=== PATIENT | female | born 1980 | race Caucasian/White ===

== ENCOUNTER 2019-12-15 12:18 | Emergency (ER) | payer OTHER, SELFPAY ==
--- NOTE | ~2019-12-15 | XR_ITS ---
EXAMINATION: XR chest 2V DATE: 12/15/2019 13:35 INDICATION: Chest pain TECHNIQUE: PA and lateral views of the chest are obtained. COMPARISON: 12/11/2010 FINDINGS: The lungs are free of acute opacities. There is no pleural effusion or pneumothorax. The ca rdiomediastinal silhouette is normal. There is mild thoracic spondylosis. Surgical clips in the right upper quadrant are likely from prior cholecystectomy. IMPRESSION: 1. No acute cardiopulmonary abnormality. Reviewed, dictated and finalized at location B.
[2019-12-15 12:20] VITALS: BP 138/90; PULSE 87; RESP 17; TEMP 36.9; O2SAT 99
--- NOTE | 2019-12-15 12:25 | ECG_ITS ---
Measurements Intervals [place] Rate: 89 P: 53 LA: 158 QRS: 0 QRSD: 80 T: 31 QT: 347 QTc: 423 Interpretive Statements SINUS RHYTHM LOW QRS VOLTAGE IN PRECORDIAL LEADS EARLY PRECORDIAL R/S TRANSITION BORDERLINE T WAVE ABNORMALITY- ANTERIOR LEADS BASELINE ARTIFACT- II, III, V6 BORDERLINE ECG Electronically Signed On 12-15-2019 12:44:03 CDT by Zurdo Leroy D.O.
[2019-12-15 12:38] VITALS: PULSE 89
[2019-12-15 12:49] LABS: Basophils Absolute Auto 0.1 K/mm3 (0.0-0.1); Basophils Percent Auto 0.5 % (0.2-1.2); Eosinophils Absolute Auto 0.6 K/mm3 (0-0.3); Eosinophils Percent Auto 5.8 % (0-4.4); Hematocrit 42.1 % (37.0-47.0); Hemoglobin 13.8 g/dL (12.0-15.0); Immature Granulocyte Absolute 0.04 K/mm3 (0.00-0.031); Immature Granulocyte Percent A 0.4 % (0-0.5); Lymphocytes Absolute Auto 3.16 K/mm3 (0.9-3.2); Lymphocytes Percent Auto 32.4 % (18.3-44.2); Mean Corpuscular HGB Conc 32.8 g/dl (32-36); Mean Corpuscular Hemoglobin 27.9 pg (26-34); Mean Corpuscular Volume 85.2 fl (80-100); Mean Platelet Volume 10.7 fl (7.4-10.4); Monocytes Absolute Auto 0.8 K/mm3 (0.1-0.6); Monocytes Percent Auto 8.4 % (2.6-8.5); Neutrophils Absolute Auto 5.1 K/mm3 (1.3-6.7); Neutrophils Percent Auto 52.5 % (45.5-73.1); Platelet Count Result 289 k/mm3 (150-375); Red Blood Count 4.94 M/mm3 (4.2-5.4); Red Cell Distribution Width 12.5 % (11.5-14.5); White Blood Count 9.8 K/mm3 (4.5-10.0)
[2019-12-15] MEDS: ASPIRIN 81 MG CHEWABLE TABLET 324 MG PO (12:51)
[2019-12-15 13:04] LABS: Anion Gap 12.9 mmol/L (7-16); Blood Urea Nitrogen 13 mg/dL (7-17); Calcium 9.6 mg/dL (8.4-10.2); Carbon Dioxide 24 mmol/L (22-30); Chloride 101 mmol/L (98-107); Estimated CRCL calculation 114 ml/min; Estimated Glomerular Filt Rate > 60; Glucose 103 mg/dL (65-105); Partial Thromboplastin Time 25.4 SECONDS (22.3-36.8); Potassium 3.9 mmol/L (3.4-5.0); Sodium 134 mmol/L (137-145)
[2019-12-15 13:10] LABS: Prothrombin Time 12.5 Seconds (11.1-14.7)
[2019-12-15 13:16] LABS: Troponin I < 0.012 ng/mL (0.000-0.034)
--- NOTE | 2019-12-15 13:18 | ED.CHESTPAIN ---
HPI - Chest Pain General Chief Complaint: Chest Pain Stated Complaint: panic attacks Time Seen by Provider: 12/15/19 12:35 Source: RN notes reviewed History of Present Illness HPI narrative: Patient presents emergency department from work for chest pain. 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 She states that prior to coming into work today she was seen in the parking lot and had a feeling of an anxiety attack with chest pressure shortness of breath and episodes of crying. She states she is had 3 further episodes in the emergency department today patient states she is having no symptoms at this time. She denies any fevers or chills abdominal pain nausea vomiting or any other symptoms. Patient states she was on vacation last week and flew home on Thursday Related Data Home Medications Medication Instructions Recorded Confirmed nortriptyline HS 05/07/19 cetirizine [Zyrtec] 10 mg PO DAILY 12/15/19 Allergies Allergy/AdvReac Type Severity Reaction Status Date / Time No Known Allergies Allergy Verified 12/15/19 12:23 Review of Systems Review of Systems: Narrative: Gen.: Denies fevers or chills ENT: Denies congestion Respiratory: Denies shortness of breath or cough CV: See HPI GI: Denies abdominal pain nausea, emesis or diarrhea Musculoskeletal: Denies back pain or muscle pain Neuro: Denies numbness, tingling, weakness or focal weakness Skin: Denies rash Except as documented, all other systems reviewed and negative PMF Past Medical History Medical History (Updated 12/15/19 @ 17:30 by Rashaad Love DO) Patient denies significant medical history Social History Social History (Updated 12/15/19 @ 13:20 by Rashaad Love DO) Smoking status: Never smoker Gender identity (if verbalized by the patient): Female Exam Narrative: Exam Narrative: APPEARANCE: No acute distress, nontoxic, resting in bed EYES: EOMI HEENT: Normocephalic, atraumatic, OMM RESPIRATORY: No respiratory distress Clear to auscultation bilaterally with no rhonchi wheezing or rales. CARDIOVASCULAR: Regular rate and rhythm without murmurs rubs or gallops. ABDOMINAL: Soft, nontender, nondistended, no rebound or guarding MUSCULOSKELETAl: Moves all extremities. No clubbing, cyanosis or edema. NEURO: Awake and alert. Following commands, speech normal, no focal deficits SKIN:: Warm, dry. No rashes lesions or abrasions PSYCHIATRIC: Normal affect/mood, Course Course Emergency Course: Patient had remained asymptomatic in the ED and is is going to tell the patient she was being discharged home the patient was again noted to be in another episode of a panic attack. Patient was tearful in the room hyperventilating patient's heart rate was noted to be elevated at 1 50-1 60 but was sinus tachycardia. At that time the patient was given Ativan with resolution of her symptoms Patient has been symptom-free since receiving Ativan. Upon discussion the patient did have a stressful episode on her vacation getting into an argument with a friend Discussed with patient results of workup and diagnosis. Discussed need for follow-up with primary care, proper use of medication, and reasons to return to the emergency department. Patient understands and agrees to current treatment plan Vital Signs Vital signs: Vital Signs Temperature 98.4 F 12/15/19 12:20 Pulse Rate 87 12/15/19 12:20 Respiratory Rate 17 12/15/19 12:20 Blood Pressure 138/90 12/15/19 12:20 Pulse Oximetry 99 12/15/19 12:20 Temperature 98.4 F 12/15/19 12:20 Pulse Rate 95 12/15/19 16:37 Respiratory Rate 20 12/15/19 16:37 Blood Pressure 129/79 12/15/19 16:37 Pulse Oximetry 97 12/15/19 16:37 MDM - Chest Pain MDM Narrative Medical decision making narrative: Patient's EKGs and labs are without significant high risk changes. Cardiac risk factors reviewed. Patient is felt likely low risk for ACS and reasonable for further risk stratification testing as an
--- NOTE | 2019-12-15 13:22 | PC.NURSE ---
PT DOES NOT WISH FOR IV AT THIS TIME. WILL ALLOW AT LATER TIME IF MD ORDERS IV MEDS OR TX REQUIRING IV
[2019-12-15 14:02] LABS: D Dimer 0.45 ug/mL (<0.48)
[2019-12-15 14:34] VITALS: BP 112/77; PULSE 69; RESP 14; O2SAT 97
[2019-12-15 16:06] LABS: Troponin I < 0.012 ng/mL (0.000-0.034)
--- NOTE | 2019-12-15 16:36 | PC.NURSE ---
pt began crying with tachypnea of-[id number] . pt began having sternal chest pain moments after crying began. medicated per md orders. emotional support provided.
[2019-12-15 16:37] VITALS: BP 129/79; PULSE 95; RESP 20; O2SAT 97
[2019-12-15 17:46] VITALS: BP 105/73; PULSE 90; RESP 20; O2SAT 98
== END 2019-12-15 17:57 | disposition home or self-care (01) ==
PROVIDERS: Emergency Provider Emergency Medicine; PCP Family Medicine Sports Medicine
DX: F41.9 Anxiety disorder, unspecified (principal); R07.89 Other chest pain; R94.31 Abnormal electrocardiogram [ECG] [EKG]
CPT/HCPCS: 36415; 71046; 80048; 84484; 85025; 85380; 85610; 85730; 93005; 96374; 99284; A9270; J2060

== ENCOUNTER 2022-06-08 15:00 | Emergency (ER) | payer BC, MEDICAID, SELFPAY ==
--- NOTE | ~2022-06-08 | CT_ITS ---
EXAMINATION: CT abdomen pelvis w con DATE: 06/08/2022 19:34 INDICATION: left flank pain, recent cystitis TECHNIQUE: Computed tomography (CT) of the abdomen and pelvis was performed with 100 mL Omnipaque-350 intravenous contrast. Automated exposure control and iterative reconstruction technique were employe d. The dose-length product was 1120.93 mGy-cm. COMPARISON: None. FINDINGS: Lower thorax: Small hiatal hernia Liver: Focal fat deposition along the falciform ligament. Biliary/Gallbladder: Gallbladder is absent. Minimal intrahepatic and mild extrahepatic bile duct dila tion likely secondary to cholecystectomy. Pancreas: No mass or duct dilation. Spleen: Normal. Adrenals:No mass. Kidneys: Right renal ectopy. No mass, stone, or hydronephrosis. GI tract: Distal esophageal and antral wall edema. Prior gastric surgery. No small or large bowel dil ation. Normal appendix. Mesentery/Peritoneum: No ascites, mass, or free air. Retroperitoneum: No mass. Pelvis: Normal urinary bladder. Normal uterus. IUD, in good position. Trace deep pelvic fluid, within physiologic range. Right corpus luteal cyst, requiring no additional evaluation. Normal left ovary.. Soft Tissues: Small, uncomplicated fat-containing umbilical hernia. Bones: No acute osseous finding. IMPRESSION: Esophagitis/gastritis. No other acute abdominopelvic process detected. Reviewed, dictated and finalized at location K. N RESOURCES EXECUTIVE
[2022-06-08 15:13] VITALS: BP 136/100; PULSE 99; RESP 18; TEMP 36.3; O2SAT 100
[2022-06-08 16:03] LABS: Appearance Urine Clear (Clear); Bilirubin Urine 2+ (Negative); Blood Urine Trace-intact (Negative); Color Urine Yellow (Yellow); Glucose Urine UA Negative (Negative); Ketones Urine 3+ mg/dL (Negative); Leukocyte Esterase Ur Trace LEU/UL (Negative); Nitrate Urine Negative (Negative); Protein Urine 1+ mg/dL (Negative); Specific Grav Ur 1.025 (1.001-1.035)
[2022-06-08 16:11] LABS: Bacteria Urine Trace /hpf; Mucus Urine Rare /lpf; Squamous Epithelial Cell Urine Moderate /hpf (Few)
[2022-06-08 16:19] LABS: Add Urine Microscopic? YES
[2022-06-08] MEDS: SODIUM CHLORIDE 0.9% IV 1,000 ML 999 ML IV CONT (18:06)
[2022-06-08 18:09] LABS: Basophils Absolute Auto 0.1 K/mm3 (0.0-0.1); Basophils Percent Auto 0.7 % (0.2-1.2); Eosinophils Absolute Auto 0.5 K/mm3 (0-0.3); Eosinophils Percent Auto 7.1 % (0-4.4); Hematocrit 43.2 % (37.0-47.0); Hemoglobin 14.1 g/dL (12.0-15.0); Immature Granulocyte Absolute 0.01 K/mm3 (0.00-0.031); Immature Granulocyte Percent A 0.1 % (0-0.5); Lymphocytes Absolute Auto 2.39 K/mm3 (0.9-3.2); Lymphocytes Percent Auto 33.3 % (18.3-44.2); Mean Corpuscular HGB Conc 32.6 g/dl (32-36); Mean Corpuscular Hemoglobin 28.7 pg (26-34); Mean Platelet Volume 12.5 fl (7.4-10.4); Monocytes Absolute Auto 0.6 K/mm3 (0.1-0.6); Monocytes Percent Auto 7.9 % (2.6-8.5); Neutrophils Absolute Auto 3.6 K/mm3 (1.3-6.7); Neutrophils Percent Auto 50.9 % (45.5-73.1); Platelet Count Result 201 k/mm3 (150-375); Red Blood Count 4.91 M/mm3 (4.2-5.4); Red Cell Distribution Width 13.3 % (11.5-14.5); White Blood Count 7.2 K/mm3 (4.5-10.0)
[2022-06-08 18:24] LABS: Alanine Aminotransferase 247 U/L (6-35); Albumin Level 3.8 g/dL (3.5-5.1); Alkaline Phosphatase 71 U/L (38-126); Anion Gap 6 mmol/L (8-16); Aspartate Amino Transferase 95 U/L (14-36); Bilirubin,Total 0.7 mg/dL (0.2-1.3); Blood Urea Nitrogen 13 mg/dL (7-17); Carbon Dioxide 26 mmol/L (22-30); Chloride 107 mmol/L (98-107); Estimated CRCL calculation 106 ml/min; Estimated Glomerular Filt Rate > 60; Glucose 94 mg/dL (65-110); Potassium 4.5 mmol/L (3.4-5.0); Sodium 139 mmol/L (137-145)
--- NOTE | 2022-06-08 18:30 | WPDEDEXPGENP ---
HPI - General Ped General Chief complaint: Urogenital-Female Stated complaint: worsening UTI symptoms Time Seen by Provider: 06/08/22 17:05 History of Present Illness HPI narrative: 42-year-old female history of migraine headaches, anxiety and gastric sleeve presents to the emergency room for evaluation of a left mid thoracic back pain that has been present for 6 days. Patient states that she contacted her GI specialist last week and was told this is possibly a gas bubble. Reports over the next couple of days her symptoms did not improve. Was seen in her primary care provider's office on and had a UA obtained and found that she had a UTI. On Thursday she was told by her primary to go directly to the emergency room for IV antibiotics. Patient states her symptoms have not improved after being on Cipro for 2 days. Denies any dysuria, urinary frequency or urgency. Back pain is not alleviated or aggravated by any factors. Patient states she has a bowel movement about every other day which is irregular for her. Related Data Home Medications Medication Instructions Recorded Confirmed nortriptyline 25 mg capsule HS 05/07/19 10/03/20 cetirizine 10 mg tablet (Zyrtec) 10 mg PO DAILY 12/15/19 10/03/20 cholecalciferol (vitamin D3) 250 250 mcg PO WEEKLY 09/19/20 10/03/20 mcg (10,000 unit) capsule escitalopram oxalate 10 mg tablet 10 mg PO DAILY 09/19/20 10/03/20 (Lexapro) topiramate 25 mg tablet (Topamax) 25 mg PO DAILY 09/19/20 10/03/20 Allergies Allergy/AdvReac Type Severity Reaction Status Date / Time No Known Allergies Allergy Verified 10/02/20 14:36 Pediatric Review of Systems Review of Systems: CONSTITUTIONAL: Denies fever, chills, or sweats. EYES: Denies visual changes, redness, or discharge. ENT: Denies rhinorrhea, congestion, sore throat, or otalgia. CARDIOVASCULAR: Denies chest pain, palpitations, or edema. RESPIRATORY: Denies cough or dyspnea. GASTROINTESTINAL: Denies abdominal pain, nausea, vomiting, or diarrhea. GENITOURINARY: Denies dysuria or hematuria. SKIN: Denies rash or itching. MUSCULOSKELETAL: Denies back pain, joint pain, or myalgia. NEUROLOGIC: Denies headache, numbness, dizziness, or weakness. PSYCHIATRIC: Denies anxiety or depression. [facility] Past Medical History Medical History Anxiety Arthritis Environmental allergies Gallbladder disorder Headache Migraine Patient denies significant medical history Surgical History Surgical History History of section History of cholecystectomy History of incision and drainage History of knee surgery [place] teeth removed Family History Family History Father Diabetes mellitus Mother Depression Anxiety Other Depression Anxiety Grandparent Ovarian cancer Lung cancer Heart disease Social History Social History Smoking status: Never smoker Alcohol intake: current Substance use: never Living arrangements: with family Occupation/Education: occupation 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 HEAD: Normocephalic, atraumatic. EYES: Conjunctivae normal, PERRLA and EOMI. CHEST: Clear to auscultation. No respiratory distress. No wheezes rales or rhonchi. HEART: Regular rate and rhythm. No murmur heard. Normal peripheral pulses. ABDOMEN: Soft, nontender, nondistended, normal active bowel sounds. BACK: No CVA tenderness; left mid thoracic tenderness, step-offs, bony abnormality; FROM EXTREMITIES: Normal range of motion. No edema. No clubbing or cyanosis SKIN: Warm, dry, no rash. No noted wou
[2022-06-08 19:24] VITALS: BP 126/79; PULSE 65; RESP 16; TEMP 36.2; O2SAT 100
== END 2022-06-08 20:50 | disposition home or self-care (01) ==
PROVIDERS: Emergency Medicine; Emergency Provider Nurse Practitioner Family
DX: K29.70 Gastritis, unspecified, without bleeding (principal); M19.90 Unspecified osteoarthritis, unspecified site; F41.9 Anxiety disorder, unspecified; Z98.84 Bariatric surgery status
CPT/HCPCS: 36415; 74177; 80053; 81001; 81025; 85025; 96360; 96361; 99284; J7030; Q9967

== ENCOUNTER 2024-05-23 09:50 | Emergency (ER) | payer OTHER, MEDICAID, SELFPAY ==
--- NOTE | ~2024-05-23 | US_ITS ---
RIGHT LOWER EXTREMITY VENOUS ULTRASOUND Ordering provider: Gloria Stevens MD History: . ankle swelling, no injury/trauma . Comparison: None. FINDINGS: --COMMON FEMORAL: Patent and free of thrombus. Normal compressibility, phasic flow and augmentation. --PROXIMAL SUPERFICIAL FEMORAL: Patent and free of thrombus. Normal compressibility, phasic flow and augmentation. --DISTAL SUPERFICIAL FEMORAL: Patent and free of thrombus. Normal compressibility, phasic flow and au gmentation. --POPLITEAL: Patent and free of thrombus. Normal compressibility, phasic flow and augmentation. --POSTERIOR TIBIAL: Patent and free of thrombus. Normal compressibility, phasic flow and augmentation . IMPRESSION: Negative right lower extremity venous US. No deep vein thrombosis. Reviewed, dictated and finalized at location A. EMIOLOGY INTERN
--- NOTE | ~2024-05-23 | XR_ITS ---
EXAMINATION: XR ankle RT min 3V DATE: 05/23/2024 11:53 INDICATION: Right ankle injury and pain. TECHNIQUE: 4 views of right ankle were obtained. COMPARISON: None. FINDINGS: Alignment is normal. No fracture. There is mild osteoarthritis of talonavicular joint. Ther e are enthesophytes at the posterior and plantar aspects of calcaneal tuberosity. There is ankle soft tissue swelling. IMPRESSION: 1. No fracture. Reviewed, dictated and finalized at location A. SHIP IMPRESSION: 1. No fracture.
[2024-05-23 09:55] VITALS: BP 103/60; PULSE 78; RESP 15; TEMP 36.4; O2SAT 98
--- NOTE | 2024-05-23 12:15 | ED.LOWEXIN ---
HPI - Extremity Injury (Lower) General Chief Complaint: Extremity Injury, Lower Stated Complaint: r ankle pain Time Seen by Provider: 05/23/24 12:02 History of Present Illness HPI Narrative: 44-year-old female with no pertinent past medical history presenting to the emergency department for right ankle pain and swelling. Patient states that she woke up today with feeling of swelling in her right ankle and some difficulty tolerating weight-bearing. She states she has been trying to roll it and felt like he needed to be ?popped? and she has now had some bruising from her aggressive rubbing. She denies any other trauma or direct injuries. No history of DVT and has no risk factors. Patient is otherwise in her normal state of health. Has not tried anything aside from Tylenol for pain control. Related Data Home Medications ?Medication ?Instructions ?Recorded ?Confirmed ?Last Taken ?Type nortriptyline 25 mg capsule HS 05/07/19 10/03/20 Unknown History cetirizine 10 mg tablet (Zyrtec) 10 mg PO DAILY 12/15/19 10/03/20 Unknown History cholecalciferol (vitamin D3) 250 250 mcg PO WEEKLY 09/19/20 10/03/20 Unknown History mcg (10,000 unit) capsule escitalopram oxalate 10 mg tablet 10 mg PO DAILY 09/19/20 10/03/20 Unknown History (Lexapro) topiramate 25 mg tablet (Topamax) 25 mg PO DAILY 09/19/20 10/03/20 Unknown History Allergies Allergy/AdvReac Type Severity Reaction Status Date / Time No Known Allergies Allergy Verified 10/02/20 14:36 Review of Systems Review of Systems: As reviewed above in HPI [facility] Past Medical History Medical History Migraine Headache Gallbladder disorder Arthritis Anxiety Environmental allergies Patient denies significant medical history Surgical History Surgical History [place] teeth removed History of knee surgery History of incision and drainage History of cholecystectomy History of section Family History Family History Father Diabetes mellitus Mother Depression Anxiety Other Depression Anxiety Grandparent Ovarian cancer Lung cancer Heart disease Social History Social History Smoking status: Never smoker Alcohol intake: current Substance use: never Living arrangements: with family Occupation/Education: occupation 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 Mucous membranes moist. NECK: Supple. CHEST: [Clear to auscultation. No respiratory distress.] HEART: [Regular rate and rhythm]. No murmur heard. [Normal peripheral pulses.] ABDOMEN: [Soft, nondistended], [nontender], [No rigidity or guarding] EXTREMITIES: Right ankle swelling and tenderness but full range of motion, able to bear weight. No significant edema. SKIN: Warm, dry, no rash. NEURO: [No focal deficits]. Alert and oriented [x3.] PSYCH: [Normal mood and affect.] Course Vital Signs Vital signs: Vital Signs Temperature 36.4 C 05/23/24 09:55 Pulse Rate 78 05/23/24 09:55 Respiratory Rate 15 05/23/24 09:55 Blood Pressure 103/60 05/23/24 09:55 Pulse Oximetry 98 05/23/24 09:55 Oxygen Delivery Room Air 05/23/24 09:55 Temperature 36.4 C 05/23/24 09:55 Pulse Rate 78 05/23/24 09:55 Respiratory Rate 15 05/23/24 09:55 Blood Pressure 103/60 05/23/24 09:55 Pulse Oximetry 98 05/23/24 09:55 Oxygen Delivery Room Air 05/23/24 09:55 MDM - Extremity Injury (Lower) MDM Narrative Medical decision making narrative: 44-year-old female presenting with right ankle pain. No significant traumatic injuries or illnesses. She does have some swelling over her right ankle as well as pain but no appreciable step-offs deformities. Full range of motion of the joint. Otherwise well-appearing on any acute distress. Ultrasound of the right lower extremities ordered to rule out DVT is there is no associated trauma, x-rays were obtained for any bony anomalies. Patient was provided Toradol for analgesia. Ultrasound shows no deep venous thrombosis, x-rays were independently reviewed and showed no acute osseous process such as fractures or dislocations. There is soft tissue swelling. Patient has an ankle sprain and was given an Chauncey wrap and crutches for ambulation assistance. She will be sent home with return precautions, instructions with [id number] medications for pain control and follow up on outpatient basis. Patient verbalized understanding of safe for discharge at this. Differential Diagnosis Differential diagnosis: Likely ankle sprain and strain, ankle fracture and other Medical Records Attestation: I reviewed the patient's medical records. Lab Data Attestation: I reviewed the patient's lab results. Imaging Data Attestation: I personally reviewed and interpreted this imaging study as follows: My impression: Impressions Ankle X-Ray 05/23/24 12:02 IMPRESSION: 1. No fracture. Venous Doppler Study 05/23/24 13:02 IMPRESSION: Negative right lower extremity venous US. No deep vein thrombosis. Discharge Plan Discharge Clinical Impression: Ankle sprain, Ankle swelling Patient Disposition: Home, Self-Care Condition: Stable Instructions: Antibiotic Form Additional Instructions: No DVT or fractures, E do have some swelling and a likely ankle sprain although unclear what caused it. Tylenol, Motrin, ice and Chauncey wrap for comfort. Follow-up with your regular doctor. Return with any new or worsening concerns at any time. Patient Language: Citizen Of [place] Prescriptions: No Action nortriptyline 25 mg capsule HS topiramate [Topamax] 25 mg tablet 25 mg PO DAILY cholecalciferol (vitamin D3) 250 mcg (10,000 unit) capsule 250 mcg PO WEEKLY escitalopram oxalate [Lexapro] 10 mg tablet 10 mg PO DAILY cetirizine [Zyrtec] 10 mg Tablet 10 mg PO DAILY alprazolam [Xanax] 0.25 mg tablet 0.25 mg PO TID PRN (Reason: anxiety) Qty: 4 0RF Follow-up/Referrals: PHYSICIAN NOT ON STAFF,NONSTAFF [Non-Staff] - Time of Disposition: 13:43
[2024-05-23] MEDS: KETOROLAC 10 MG TABLET PO (14:13)
--- OUTSIDE RECORDS SUMMARY | 2024-05-29 17:26 | XMS_ITS | Referral Summary ---
Author Organization [facility] Address [address] [place] [address] Care Team Providers Care Sales Enablement Lead Name Role Phone Miguel Ángel Olea MD Primary Care Provider [phone] Source Comments [facility],non-owned Affiliates and Associated Physician Practices is amultiple site organization consisting of ambulatory clinics and hospital sitesin [place], [place], [place] and [place]. This disclosure is being madepursuant to the Care Everywhere program and may not contain all information available regarding this patient. Last updated 18.[facility] Encounters Date Type Department Care Team Description 05/05/2024 Telephone [facility] [address] [place] [address] Robert Sage, [facility] Kidney/Liver Donor Evaluation from Last 3 Months Medications * Be aware that medications may not be up to date on this document. Alwaysverify current medications with the patient. Medication Sig Dispensed Refills Start Date End Date Status ergocalciferol (DRISDOL) 76359 UNITS capsule Take 50,000 Units by mouth every 7 days Active topiramate (TOPAMAX) 100 MG tablet Take 100 mg by mouth 2 times daily Active topiramate (TOPAMAX) 50 MG tablet Take 50 mg by mouth 2 times daily Active atorvastatin (LIPITOR) 40 MG tablet Take 40 mg by mouth at bedtime Active cetirizine (ZYRTEC ALLERGY) 10 MG tablet Take 10 mg by mouth once daily Active nortriptyline (PAMELOR) 25 MG capsuleIndications:Mi graine without aura and without status migrainosus, not intractable Take 1 capsule by mouth at bedtime 30 capsule 5 04/28/2018 Active Active Problems Problem Noted Date Diagnosed Date Supervision of other high-risk 014 Overview (03/25/2015): Consult from Arianne Hussein NP O+/I/-/-, HIV NR Maternal serum screen positive for trisomy 21 Overview (02/28/2014): 1:111 risk for DS S/p genetic counseling Declined further testing Resolved Problems Problem Noted Date Diagnosed Date Resolved Date Pre-transplant evaluation fo r kidney transplant 03/07/2024 03/07/2024 Overview (03/07/2024): Lela Lei 1980 Referring Seismic Prospecting Observer Helper: Listing Date: Dialysis Info: Type: Time: NOD Blood Type: Body mass index is 43.08 kg/m??. 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: Past Medical History: Diagnosis Date Allergic rhinitis Blood in stool GERD (gastroesophageal reflux disease) Headache Hemorrhoid Hypercholesterolemia Left knee pain Vitamin D deficiency Past Surgical History: Procedure Laterality Date Cholecystectomy Social History Socioeconomic History Marital status: Single Spouse name: Not on file Number of children: Not on file Years of education: Not on file Highest education level: Not on file Occupational History Not on file Tobacco Use Smoking status: Former Current packs/day: 0.00 Types: Cigarettes Quit date: 08/27/2017 Years since quittin.5 Smokeless tobacco: Never Substance and Sexual Activity Alcohol use: Not on file Drug use: Not on file Sexual activity: Not on file Other Topics Concern Not on file Social History Narrative Not on file Social Determinants of Health Financial Resource Strain: Not on file Food Insecurity: Not on file Transportation Needs: Not on file Stress: Not on file Housing Stability: Not on file Transplant Surgery Clinic Appt w/: Date: A/P: Nephrology Clinic Appt w/: Date: A/P: Other Consults: Pertinent Previous Committee Presentations: Labs: PTH: A1c: Glucose: GFR: PSA: Serologies: CMV Igg: EBV Igg: Varicella: MMR: Toxo: Strongyloides: Albumin: Tox Screen: PRA: Class 1 Class 2 Kidney Biopsy: Renasight: EKG: Echo: DSE: Treadmill Stress: LHC: CXR: CT abd/pelvis non-contrast: Renal US: LE arterial doppler: LE venous doppler: Carotid US: VCUG: PPD/Quant Gold: Colonoscopy: Mammo: Pap: Panorex/Dental: SW: FIN[employer] REPRESENTATIVE forms: RD: Items Still Pending: Social History Tobacco Use Types Packs/Day Years Used Date Smoking Tobacco: Former Cigarettes Q uit: 08/27/2017 Smokeless Tobacco: Never Sex and Gender Information Value Date Recorded Sex Assigned at Not on file Gender Identity Not on file Sexual Orientation Not on file Last Filed Vital Signs Vital Sign Reading Time Taken Comments Blood Pressure 127/88 04/28/2018 1:09 PM NET SORTER Pulse 101 04/28/2018 1:09 PM NET SORTER Temperature 36.3 ??C (97.3 ??F) 04/28/2018 1:09 PM CS T Respiratory Rate - - Oxygen Saturation - - Inhaled Oxygen Concentration - - Weight 113.9 kg (251 lb) 04/28/2018 1:09 PM NET SORTER Height 162.6 cm (5' 4 ) 04/28/2018 1:09 PM NET SORTER Body Mass Index 43.08 04/28/2018 1:09 PM NET SORTER Plan of Treatment Not on file Advance Directives * Full Code (Latest Code Status on File) Date Activated Date Inactivated Comments 02/02/2024 12:40 PM Care Teams Sales Enablement Lead Relationship Specialty Start Date End Date Miguel Ángel Olea MD PCP - General 01/26/18
--- OUTSIDE RECORDS SUMMARY | 2024-05-29 17:26 | XMS_ITS | Encounter Summary ---
Author Organization [facility] Address [address] [place] [address] Care Team Providers Care Sap Technical Developer Name Role Phone Dot Shultz DO Primary Care Provider [phone] Encounter Details Date Type Department Care Team (Latest Contact Info) Description 03/20/2014 9:00 AM IRONING MACHINE OPERATOR - 03/20/2014 11:59 PM IRONING MACHINE OPERATOR Hospital Encounter [facility] MATERNAL/ EVALUATION UNIT [address] [facility] [place] [id number] Bacilio Anders MD [address] [place] [address] Discharge Disposition: Home or Self Care Social History Tobacco Use Types Packs/Day Years Used Date Smoking Tobacco: Never Assessed Comments Yes Sex and Gender Information Value Date Recorded Sex Assigned at Not on file Gender Identity Not on file Sexual Orientation Not on file documented as of this encounter Plan of Treatment Not on file documented as of this encounter Procedures Procedure Name Priority Date/Time Associated Diagnosis Comments IMAGING/RADIOLOGY/X RAY RESULTS ORDER 07/29/2014 5:51 AM CDT SONOGRAM - COMPLETE Routine 03/20/2014 9 :37 AM IRONING MACHINE OPERATOR documented in this encounter Results * IMAGING/RADIOLOGY/XRAY RESULTS ORDER (07/29/2014 5:51 AM CDT) Anatomical Region Laterality Modality Other Narrative 07/29/2014 5:51 AM CDT Ordered by an unspecified provider. Scanned Document IMAGING * SONOGRAM - COMPLETE (03/20/2014 9:37 AM IRONING MACHINE OPERATOR) Anatomical Region Laterality Modality Other 03/20/2014 9:37 AM IRONING MACHINE OPERATOR Narrative 03/20/2014 10:03 AM IRONING MACHINE OPERATOR ? [facility] ? [facility] & Care Center ?PHONE: ??FAX: Pat. Name: ?LELA LEI. No: ?[id number] Study Date: ?? 03/20/2014 ??9:37am , Age: ? 1980, 33 LMP: ?10/01/2013 GA by LMP: ?24w2d GA by 1st: ?24w3d GA by US: ? 23w5d GA Selected: ??24w3d (From First U) JACEY: ?07/07/2014 Referring MD: ZIA BALES MD Hair Blender: ??Bonnie Gao RDMS Hist/Ind: ? Risk of trisomy 21 of 1:111 MEASUREMENTS & AGE ? GROWTH EVALUATION Measurement ??GA ? Range ? Srce %for GA Ratios ----- ---- ------- BPD ??5.7 cm 23w2d (25n3h-91v3l) Hadl BPD 20% FL/BPD 0.77 (0.71 - 0.87) HC ??21.4 cm 23w3d (65r0g-28u2v) Hadl HC ??19% FL/AC ??0.21 (0.20 - 0.24) AC ??20.8 cm 25w3d (58a5v-93e8c) Hadl AC ??68% HC/AC ??1.03 (1.02 - 1.21) FL ?? 4.4 cm 24w3d (12f4y-89f4m) Hadl FL ??49% CI ? 0.72 (0.70 - 0.86) HL ?? 4.3 cm 25w6d (98c8v-90w6n) Juan Manuel HL ??73% GA for sonogram 23w5d (89s6q-27s0c) ?? Weight Estimate: based on (BPD,HC,AC,FL) Hadlock ?Weight: 727 gm (621-833) Hadlock ? : 1lbs, 9oz ? Normal: 724 gm (543-904) Hadlock ? Wt% ? 51% for 24w3d Heart Rate: 135 bpm Amniotic Fluid Index: 15.5cm (09.8-22.0) Q1: 5.6cm ??Q2: 2.7cm ??Q3: 3.0cm ??Q4: 4.2cm ?? CLINICAL SUMMARY Study Number: ??2 A marshall fetus is identified in breech presentation. ??The measurements today are consistent with appropriate growth compared to previous examination. ??The JACEY selected is based on prior ultrasound examination (confirmed). ??The amniotic fluid volume is within normal limits. ??The placenta is anterior. ??No major malformations are seen. ??The patient was advised that ultrasound does not allow detection of all structural or chromosomal abnormalities. ?? IMPRESSION: ?? Single, live, IUP 23w3d Anatomy completed RECOMMEND: ?? Follow up ultrasound as clinically indicated. Thank you for allowing us the opportunity to care for your patient. Glenn Ames MD <Electronic Signature> ??03/20/2014 10:04am Bacilio Anders MD [facility] ORDERABLES documented in this encounter Visit Diagnoses Not on filedocumented in this encounter Care Teams Sap Technical Developer Relationship Specialty Start Date End Date Dot Shultz DO [address] [place] [address] PCP - General Family Medicine 02/20/14 01/25/18 documented as of this encounter
--- OUTSIDE RECORDS SUMMARY | 2024-05-29 17:26 | XMS_ITS | Encounter Summary ---
Author Organization [facility] Address [address] [place] [address]. [place], [place] [address] [place] [address] Care Team Providers Care Property Site Manager Name Role Phone Miguel Ángel Olea MD Primary Care Provider [phone] Reason for Visit * Reason Comments Follow Up Seen in ER for panic attacks. Encounter Details Date Type Department Care Team (Late st Contact Info) Description 12/19/2019 3:40 PM CDT Office Visit [facility] - [place] [address] [place] [address] Miguel Ángel Olea MD [address] [address] Follow Up (Seen in ER for panic attacks.) Social History Tobacco Use Types Packs/Day Years Used Date Smoking Tobacco: Former Cigarettes 0.5 15 Smokeless Tobacco: Never Alcohol Use Standard Drinks/Week Comments Yes 0 (1 standard drink = 0.6 oz pur e alcohol) 1 drink per year Comments Unknown Sex and Gender Information Value Date Recorded Sex Assigned at Not on file Legal Sex Female 5:36 PM CDT Gender Identity Not on file Sexual Orientation Not on file COVID-19 Exposure Response Date Recorded In the last month, have you been in contact with someone who was confirmed or suspected to have Coronavirus / COVID-19? No / Unsure 12/19/2019 3:27 PM CDT documented as of this encounter Last Filed Vital Signs Vital Sign Reading Time Taken Comments Blood Pressure 130/84 12/19/2019 3:38 PM CDT Pulse 85 12/19/2019 3:38 PM CDT Temperature 36.6 ??C (97.9 ??F) 12/19/2019 3:38 PM CD T Respiratory Rate 18 12/19/2019 3:38 PM CDT Oxygen Saturation 97% 12/19/2019 3:38 PM CDT Inhaled Oxygen Concentration - - Weight 117.5 kg (259 lb) 12/19/2019 3:38 PM CDT Height 162.6 cm (5' 4 ) 12/19/2019 3:38 PM CDT Body Mass Index 44.46 12/19/2019 3:38 PM CDT documented in this encounter Progress Notes * Miguel Ángel Olea MD - 12/19/2019 3:40 PM CDT Images from the original note were not included. [facility] [place] Encounter Date: 12/19/2019 Chief Complaint:: Follow Up (Seen in ER for panic attacks.) History of Present Illness: Renata Lei is a 39-year-old female, who presents for an evaluation of shortness of breath.Onset approximately 6 months ago. Symptoms are triggered by social situations.There are no suicidalideations or plan today. No history concerning for manic symptoms. Discussed biochemical cause of anxiety and depression as well as treatment to include pharmacotherapy and behavioral therapy. Discussed with patient that best treatment is combined therapy with SSRI and counseling. Previous treatment modalities include: none. Will continue pharmacological treatment today. Discussed typical side effects of medication, to include sleep problems, HERNANDEZ, GI symptoms, and black box warning of increase in suicidal ideation. Depression risk factors: none ROS: Review of Systems Constitutional: Negative. Eyes: Negative. Respiratory: Negative. Cardiovascular: Negative. Gastrointestinal: Negative. Genitourinary: Negative. Musculoskeletal: Negative. Skin: Negative. Neurological: Negative. Endo/Heme/Allergies: Negative. Psychiatric/Behavioral: The patient is nervous/anxious. Active Problems: Patient Active Problem List Diagnosis ??? Allergic rhinitis ??? Bright red blood per rectum ??? Encounter for preventive health examination ??? Headache ??? Hemorrhoids ??? Hypercholesterolemia ??? Knee pain, left ??? Low vitamin D level ??? Overweight ??? Sinusitis Medical History: Past Medical History: Diagnosis Date ??? Migraine 03/2017 ??? S/P debridement I & D left upper thigh with debridement Surgical History: Past Surgical History: Procedure Laterality Date ??? ABDOMINAL SURGERY 2006 lap choly ??? JOINT REPLACEMENT Left 1998 left knee replacement Family History: Family History Problem Relation Name Age of Onset ??? Fibromyalgia Mother ??? Diabetes Father ??? Hyperlipidemia Father ??? None Sister Social History: Social History Socioeconomic History ??? Marital status: Single Spouse name: Not on file ??? Number of children: Not on file ??? Years of education: Not on file ??? Highest education level: Not on file Occupational History ??? Not on file Social Needs ??? Financial resource strain: Not on file ??? Food insecurity: Worry: Not on file Inability: Not on file ??? Transportation needs: Medical: Not on file Non-medical: Not on file Tobacco Use ??? Smoking status: Former Smoker Packs/day: 0.50 Years: 15.00 Pack years: 7.50 Types: Cigarettes ??? Smokeless tobacco: Never Used Substance and Sexual Activity ??? Alcohol use: Yes Comment: 1 drink per year ??? Drug use: No ??? Sexual activity: Not on file Lifestyle ??? Physical activity: Days per week: Not on file Minutes per session: Not on file ??? Stress: Not on file Relationships ??? Social connections: Talks on phone: Not on file Gets together: Not on file Attends evangelical service: Not on file Active member of club or organization: Not on file Attends meetings of clubs or organizations: Not on file Relationship status: Not on file ??? Intimate partner violence: Fear of current or ex partner: Not on file Emotionally abused: Not on file Physically abused: Not on file Forced sexual activity: Not on file Other Topics Concern ??? Not on file Social History Narrative ??? Not on file Medications: Current Outpatient Medications: ??? ALPRAZolam 0.25 MG tablet, Take 0.25 mg by mouth 3 (three) times daily as needed. FOR ANXIETY, Disp: , Rfl: ??? atorvastatin 10 MG tablet, Take 1 tablet by mouth daily., Disp: , Rfl: ??? jzxfrlweca-gcuvmobldpudj-itptvdcm 50-325-40 MG tablet, Take 1 tablet by mouth every 4 (four) hours as needed for Pain., Disp: , Rfl: ??? cetirizine 10 MG tablet, Take 10 mg by mouth daily., Disp: , Rfl: ??? Cholecalciferol (VITAMIN D3) 1.25 MG (15902 UT) Tab, Take 1 tablet by mouth once a week., Disp:, Rfl: ??? docusate sodium (STOOL SOFTENER) 100 MG capsule, Take 100 mg by mouth daily., Disp: , Rfl: ??? nortriptyline 25 MG capsule, Take 25 mg by mouth., Disp: , Rfl: ??? topiramate 100 MG tablet, Take 100 mg by mouth 2 (two) times daily., Disp: , Rfl: ??? topiramate 100 MG tablet, Take 1 tablet by mouth 2 (two) times daily., Disp: , Rfl: ??? vitamin D2, ergocalciferol, 99160 UNITS capsule, Take 50,000 Units by mouth daily., Disp: , Rfl: Allergies: No Known Allergies Vitals: Filed Vitals: 12/19/19 1538 BP: 130/84 Pulse: 85 Resp: 18 Temp: 97.9 ??F (36.6 ??C) TempSrc: Temporal SpO2: 97% Weight: 117.5 kg (259 lb) Height: 5' 4 (1.626 m) PE: Physical Exam Constitutional: Well-developed, well-nourished, and in no distress. Vital signs are normal. Neck: Normal range of motion. Cardiovascular: Normal rate and regular rhythm. Pulmonary/Chest: Effort normal and breath sounds normal. Musculoskeletal: Normal range of motion. Neurological: Alert and oriented to person, place, and time. Normal motor skills. Skin: Skin is warm, dry and intact. Psychiatric: Memory, affect and judgment normal. Mood appears anxious. Expresses no homicidal and no suicidal ideation. Diagnoses/Impression: Encounter Diagnose(s) ICD-10-CM ICD-9-CM SNOMED CT(R) 1. Anxiety F41.9 300.00 ANXIETY escitalopram (LEXAPRO) 10 MG tablet ALPRAZolam 0.25 MG tablet Recommendations and Plan: 1. Encouraged physical activity and exercise at least 4 days per week for at least 30 min 2. Do pleasurable activity (hobby, music, activity) daily for 30 min 3. Spend time with supportive people 4. Practice relaxing 5. Set goals to accomplish Will have frequent check-ups. Effect of medication likely not to be seen for 4-6 weeks. The patientshould also consider counseling to talk through issues -- reviewed resources and given handout of local recommended counselors. Encouraged f/u in clinic in 7 Month(s). Review the rationale for treatment duration of greater than 6 months after symptoms are completely controlled. Counselled that oncedecision to stop the medication is reached, it will need to be slowly titrated off. Patient understands these risks and wants to continue therapy. Orders Placed This Encounter ??? ALPRAZolam 0.25 MG tablet Cannot display discharge medications since this is not an admission. Medications Discontinued During This Encounter Medication Reason ??? atorvastatin 10 MG tablet ??? azithromycin 250 MG tablet ??? methylPREDNISolone, KILEY, 4 MG tablet MIGUEL ÁNGEL OLEA MD 12/19/2019 documented in this encounter Plan of Treatment Not on file documented as of this encounter Visit Diagnoses Diagnosis Anxiety- Primary Anxiety state, unspecified documented in this encounter Care Teams Property Site Manager Relationship Specialty Start Date End Date Miguel Ángel Olea MD [address] [address] PCP - General FAMILY PRACTICE 07/16/16 documented as of this encounter
--- OUTSIDE RECORDS SUMMARY | 2024-05-29 17:26 | XMS_ITS | Encounter Summary ---
Author Organization [facility] Address [address] [place] [address]. [place], [place] [id number] [place] [address] Care Team Providers Care Game Engineer Name Role Phone Miguel Ángel Olea MD Primary Care Provider [phone] Encounter Details Date Type Department Care Team (Latest Contact Info) Description 12/19/2019 Travel Social History Tobacco Use Types Packs/Day Years [...] PM CDT documented as of this encounter Plan of Treatment Not on file documented as of this encounter Visit Diagnoses Not on filedocumented in this encounter Care Teams Game Engineer Relationship Specialty Start Date End Date Miguel Ángel Olea MD [address] [place] [address]'[place] [address] PCP - General FAMILY PRACTICE 07/16/16 documented as of this encounter
--- OUTSIDE RECORDS SUMMARY | 2024-05-29 17:26 | XMS_ITS | Continuity of Care Document ---
Author Name Veronica Whaley Address [address] [place] [address] Organization Unknown Address [address] [place] [address] Medications No known medications Problems No known problems
--- OUTSIDE RECORDS SUMMARY | 2024-05-29 17:26 | XMS_ITS | Encounter Summary ---
Author Organization [facility] Address [address] [place] [address]. [place], [place] [id number] [place] [address] Care Team Providers Care Call Out Operator Name Role Phone Miguel Ángel Olea MD Primary Care Provider [phone] Reason for Visit * Reason Comments Image (SCAN) Encounter Details Date Type Department Care Team (Latest Contact Info) Description 12/15/2019 Scan [facility] INFO SRVCS Scanned, Documents Image (SCAN) Social History Tobacco Use Types Packs/Day Years Used Date Smoking Tobacco: Every Day Cigarettes 0.5 15 Smokeless Tobacco: Never Alcohol [...] Procedure Name Priority Date/Time Associated Diagnosis Comments IMAGE GENERIC 12/15/2019 documented in this encounter Results * IMAGE GENERIC (12/15/2019) Anatomical Region Laterality Modality Other 12/15/2019 Narrative 12/15/2019 Ordered by an unspecified provider. us Documents Scanned SCANNING Final Result documented in this encounter Visit Diagnoses Not on filedocumented in this encounter Care Teams Call Out Operator Relationship Specialty Start Date End Date Miguel Ángel Olea MD [address] [address] PCP - General FAMILY PRACTICE 07/16/16 documented as of this encounter
--- OUTSIDE RECORDS SUMMARY | 2024-05-29 17:26 | XMS_ITS ---
Author Organization [facility] Address [address] [facility] [address] [place] [address] Care Team Providers Care Community Planning Technician Name Role Phone Miguel Ángel Olea MD Primary Care Provider [phone] Transplant Episode Kidney Potential Donor [facility] ([place], [place]) - [facility] Referred on 01/04/2024 Marked as Active on 01/04/2024 Kidney CoordinatorRobert Sage RN Phone: N/A Fax: N/A Email: N/A Care Team Name Role Phone Fax Email Robert Sage RN Kidney Coordinator N/A N/A N /A Naye Khan Cda Teacher N/A N/A N/A Events Pre-Donation Referred: 01/04/2024
--- OUTSIDE RECORDS SUMMARY | 2024-05-29 17:26 | XMS_ITS | Encounter Summary ---
Author Organization [facility] Address [address] [place] [address]. [place] [address] [place] [address] Care Team Providers Care Cylinder Die Machine Helper Name Role Phone Miguel Ángel Olea MD Primary Care Provider [phone] Reason for Visit * Reason Comments MRI (SCAN) [facility] 9 MRI BRAIN/BRAINSTEM W/O Encounter Details Date Type Department Care Team (Late Contact Info) Description 05/27/2018 Scan HEALTH INFO SRVCS Scanned, Documents MRI (SCAN) ([facility] 05-27-18 MRI BRAIN/BRAINSTEM W/O) Social History Tobacco Use Types Packs/Day Years [...] Procedure Name Priority Date/Time Associated Diagnosis Comments MRI GENERIC Routine 05/27/2018 documented in this encounter Results * MRI (05/27/2018) Anatomical Region Laterality Modality Other us Documents Scanned SCANNING Final Result documented in this encounter Visit Diagnoses Not on filedocumented in this encounter Care Teams Cylinder Die Machine Helper Relationship Specialty Start Date End Date Miguel Ángel Olea MD [address] [facility] [address] [place] [address] PCP - General FAMILY PRACTICE 07/16/16 documented as of this encounter
--- OUTSIDE RECORDS SUMMARY | 2024-05-29 17:26 | XMS_ITS | Encounter Summary ---
Author Organization [facility] Address [address] [facility] [place] [place] [address] Care Team Providers Care Kit Planner Name Role Phone Dot Shultz DO Primary Care Provider [phone] Encounter Details Date Type Department Care Team (Latest Contact Info) Description 02/20/2014 1:23 PM CDT - 02/20/2014 11:59 PM CDT Hospital Encounter [facility] MATERNAL/ EVALUATION UNIT [facility] [facility] [place] [address] Tarun Hendrickson DO [address] [facility] [address] [address] Discharge Disposition: Home or Self Care Social History Tobacco Use Types Packs/Day Years Used Date Smoking Tobacco: Never Assessed Sex and Gender Information Value Date Recorded Sex Assigned at Not on file Gender Identity Not on file Sexual Orientation Not on file documented as of this encounter Plan of Treatment Not on file documented as of this encounter Procedures Procedure Name Priority Date/Time Associated Diagnosis Comments SONOGRAM - COMPLETE Routine 02/20/2014 3 :00 PM CDT documented in this encounter Results * SONOGRAM - COMPLETE (02/20/2014 3:00 PM CDT) Anatomical Region Laterality Modality Other 02/20/2014 3:00 PM CDT Narrative 02/20/2014 6:08 PM CDT ? [facility] ? [facility] & Care Center ?PHONE: ??FAX: Pat. Name: ?LELA LEI Pat. No: ?[id number] Study Date: ?? 02/20/2014 ??3:00pm , Age: ? 1980, 33 LMP: ?10/01/2013 GA by LMP: ?20w2d GA by US: ? 20w3d GA Selected: ??20w3d (Sonographic) JACEY: ?07/07/2014 Referring MD: ZIA BALES MD Steward/Stewardess Banquet: ??Carmela Ruiz RDMS Hist/Ind: ? Risk of trisomy 21 of 1:111 ?Anatomic survey MEASUREMENTS & AGE ? GROWTH EVALUATION Measurement ??GA ? Range ? Srce %for GA Ratios ----- ---- ------- BPD ??4.7 cm 20w2d (03a5a-40r6i) Hadl BPD 46% FL/BPD 0.74 HC ??18.1 cm 20w4d (05k6h-88b9w) Hadl HC ??52% FL/AC ??0.22 AC ??15.8 cm 20w6d (39e2l-64q5l) Hadl AC ??60% HC/AC ??1.15 (1.06 - 1.24) FL ?? 3.5 cm 21w0d (90h5n-86z9o) Hadl FL ??64% CI ? 0.72 (0.70 - 0.86) HL ?? 3.4 cm 21w5d (16m4p-91q0p) Juan Manuel HL ??71% GA for sonogram 20w3d (71k3x-38n6p) ?? Weight Estimate: based on (BPD,HC,AC,FL) Hadlock ?Weight: 384 gm (328-441) Hadlock ? : 0lbs, 13oz ? Normal: 363 gm (272-453) Hadlock ? Wt% ? 61% for 20w3d Heart Rate: 137 bpm CLINICAL SUMMARY Study Number: ??1 A marshall fetus is identified in cephalic presentation. ??The amniotic fluid volume is within normal limits. ??The placenta is anterior. IMPRESSION: ?? 1) Marshall gestation, 20w2d 2) Biometry is consistent with the previously established JACEY of 07/07/14 3) No structural abnormalities were detected on detailed anatomic survey 4) Imaging of the heart was suboptimal due to maternal acoustic properties NOTE: The patient was advised that ultrasound does not allow detection of all structural or chromosomal abnormalities. Both noninvasive and invasive testing was offered and declined. RECOMMEND: ?? Follow up ultrasound in 4 weeks to complete the anatomic survey Thank you for allowing us the opportunity to care for your patient. cc: ??Genetics ? Alicia Jean Baptiste MD ?<Electronic Signature> ??02/20/2014 06:07pm Ordering Provider Unlisted MD LEMUS ORDERA BLES documented in this encounter Visit Diagnoses Not on filedocumented in this encounter Care Teams Kit Planner Relationship Specialty Start Date End Date Dot Shultz DO [address] [place] [phone] PCP - General Family Medicine 02/20/14 01/25/18 documented as of this encounter
--- OUTSIDE RECORDS SUMMARY | 2024-05-29 17:26 | XMS_ITS | Patient Health Summary ---
Author Organization [facility] Address [address] [place] [address] Care Team Providers Care Tmr Teacher Name Role Phone Miguel Ángel Olea MD Primary Care Provider [phone] Note from [facility],non-owned Affiliates and Associated Physician Practices is amultiple site organization consisting of ambulatory clinics and hospital sitesin [place], [place], [place] and [place]. This disclosure is being madepursuant to the Care Everywhere program and may not contain all information available regarding this patient. Last updated 18.[facility] Medications * Be aware that medications may not be up to date on this document. Alwaysverify current medications with the patient. 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 trisomy 21 Resolved Problems Problem Noted Date Diagnosed Date Resolved Date Pre-transplant evaluation fo r kidney transplant 03/07/2024 03/07/2024 Social History Tobacco Use Types Packs/Day Years Used Date Smoking Tobacco: Former Cigarettes Q uit: 08/27/2017 Smokeless Tobacco: Never Sex and Gender Information Value Date Recorded Sex Assigned at Not on file Gender Identity Not on file Sexual Orientation Not on file Last Filed Vital Signs Vital Sign Reading Time Taken Comments Blood Pressure 127/88 04/28/2018 1:09 PM TELECOMMUNICATIONS ENGINEER Pulse 101 04/28/2018 1:09 PM TELECOMMUNICATIONS ENGINEER Temperature 36.3 ??C (97.3 ??F) 04/28/2018 1:09 PM CS T Respiratory Rate - - Oxygen Saturation - - Inhaled Oxygen Concentration - - Weight 113.9 kg (251 lb) 04/28/2018 1:09 PM TELECOMMUNICATIONS ENGINEER Height 162.6 cm (5' 4 ) 04/28/2018 1:09 PM TELECOMMUNICATIONS ENGINEER Body Mass Index 43.08 04/28/2018 1:09 PM TELECOMMUNICATIONS ENGINEER Procedures * REF LAB-SPECIMEN STATUS REPORT(Performed 02/26/2024) * IMAGING/RADIOLOGY/XRAY RESULTS ORDER(Performed 06/01/2018) * IMAGING/RADIOLOGY/XRAY RESULTS ORDER(Performed 07/29/2014) * IMAGING/RADIOLOGY/XRAY RESULTS ORDER(Performed 07/29/2014) * SONOGRAM - COMPLETE(Performed 03/20/2014) * SONOGRAM - COMPLETE(Performed 02/20/2014) Results * REF LAB-SPECIMEN STATUS REPORT (02/26/2024 12:00 AM CDT) Specimen Status Report Comment [facility] ACCOUNT BILL Comment: Please note Please note The date and/or time of collection was not indicated on the requisition as required by state and federal law. ??The date of receipt of the specimen was used as the collection date if not supplied. 02/26/2024 02/26/2024 Narrative [facility] ACCOUNT BILL - 02/27/2024 6:13 AM CDT Performed at: ??01 - [facility] [address] ??[id number] Music Video Director: Serina Tillman PhD, Phone: ??[phone] Sushant Meyers MD LAB - CHEMISTRY ORDERABLES [facility] ACCOUNT BILL [address] [place] [address] * IMAGING/RADIOLOGY/XRAY RESULTS ORDER (06/01/2018 1:24 PM TELECOMMUNICATIONS ENGINEER) Only the most recent of3 resultswithin the time period is included. Anatomical Region Laterality Modality Other Narrative 06/01/2018 1:24 PM TELECOMMUNICATIONS ENGINEER Ordered by an unspecified provider. Scanned Document IMAGING * SONOGRAM - COMPLETE (03/20/2014 9:37 AM TELECOMMUNICATIONS ENGINEER) Only the most recent of2 resultswithin the time period is included. Anatomical Region Laterality Modality Other 03/20/2014 9:37 AM TELECOMMUNICATIONS ENGINEER Narrative 03/20/2014 10:03 AM TELECOMMUNICATIONS ENGINEER ? [facility] ? [facility] ?PHONE: ??FAX: Pat. Name: ?LELA LEI. No: ?[id number] Study Date: ?? 03/20/2014 ??9:37am , Age: ? 1980, 33 LMP: ?10/01/2013 GA by LMP: ?24w2d GA by 1st: ?24w3d GA by US: ? 23w5d GA Selected: ??24w3d (From First U) JACEY: ?07/07/2014 Referring MD: ZIA BALES MD Hand Tufter: ??Bonnie Gao RDMS Hist/Ind: ? Risk of trisomy 21 of 1:111 MEASUREMENTS & AGE ? GROWTH EVALUATION Measurement ??GA ? Range ? Srce %for GA Ratios ----- ---- ------- BPD ??5.7 cm 23w2d ([id number]) Hadl BPD 20% FL/BPD 0.77 (0.71 - 0.87) HC ??21.4 cm 23w3d (14p7e-21s7o) Hadl HC ??19% FL/AC ??0.21 (0.20 - 0.24) AC ??20.8 cm 25w3d (22g2n-04o5h) Hadl AC ??68% HC/AC ??1.03 (1.02 - 1.21) FL ?? 4.4 cm 24w3d (16b7l-10g4t) Hadl FL ??49% CI ? 0.72 (0.70 - 0.86) HL ?? 4.3 cm 25w6d (44e1e-67h4m) Juan Manuel HL ??73% GA for sonogram 23w5d (66t0j-52y8x) ?? Weight Estimate: based on (BPD,HC,AC,FL) Hadlock [...] <Electronic Signature> ??03/20/2014 10:04am Bacilio Anders MD M ORDERABLES Care Teams Tmr Teacher Relationship Specialty Start Date End Date Miguel Ángel Olea MD PCP - General 01/26/18
--- OUTSIDE RECORDS SUMMARY | 2024-05-29 17:26 | XMS_ITS | Encounter Summary ---
Author Organization [facility] Address [address] [place] [address]. [place], [place] [address] [place] [address] Care Team Providers Care Unhairer Name Role Phone Miguel Ángel Olea MD Primary Care Provider [phone] Encounter Details Date Type Department Care Team (Latest Contact Info) Description 03/23/2018 Scan [facility] Nav Waddell MD Social History Tobacco Use Types Packs/Day Years [...] on filedocumented in this encounter Care Teams Unhairer Relationship Specialty Start Date End Date Miguel Ángel Olea MD [address] [address] PCP - General FAMILY PRACTICE 07/16/16 documented as of this encounter
--- OUTSIDE RECORDS SUMMARY | 2024-05-29 17:26 | XMS_ITS | Encounter Summary ---
Author Organization [facility] Address [address] [place] [address]. [place] [address] [place] [address] Care Team Providers Care Molasses Coloring Operator Name Role Phone Miguel Ángel Olea MD Primary Care Provider [phone] Reason for Visit * Reason Onset Date Comments Other 03/08/2020 MRI Encounter Details Date Type Department Care Team (Late st Contact Info) Description 03/08/2020 Telephone [facility] Family and Sports Medicine - [place] [address] [place] [address] Miguel Ángel Olea MD [address] [place] [address] Other (MRI) Social History Tobacco Use Types Packs/Day Years Used Date Smoking Tobacco: Former Cigarettes 0.5 15 Smokeless Tobacco: Never Alcohol Use Standard Drinks/Week Comments Yes 0 (1 standard drink = 0.6 oz pur e alcohol) 1 drink per year PHQ-2 Answer Date Recorded PHQ-2 Score - If the patient scores above 3, please move on to questions 3-9 1 03/08/2020 Comments Unknown Sex and Gender Information Value Date Recorded Sex Assigned at Not on file Legal Sex Female 5:36 PM CDT Gender Identity Not on file Sexual Orientation Not on file COVID-19 Exposure Response Date Recorded In the last month, have you been in contact with someone who was confirmed or suspected to have Coronavirus / COVID-19? No / Unsure 03/08/2020 11:23 AM CDT documented as of this encounter Progress Notes * Tawnya Amezquita MA - 03/08/2020 3:43 PM CDT No answer * Rachel Dewitt - 03/08/2020 12:18 PM CDT Glenis from [facility] called to say Renata has [place] insurance, so she will not be able to have MRI there. documented in this encounter Plan of Treatment Not on file documented as of this encounter Visit Diagnoses Not on filedocumented in this encounter Additional Health Concerns Assessment Noted Time PHQ-9 Depression Total Score: 2 03/08/20 20 11:36 AM CDT documented as of this encounter Care Teams Molasses Coloring Operator Relationship Specialty Start Date End Date Miguel Ángel Olea MD [address] [address] PCP - General FAMILY PRACTICE 07/16/16 documented as of this encounter
--- OUTSIDE RECORDS SUMMARY | 2024-05-29 17:26 | XMS_ITS | Encounter Summary ---
Author Organization [facility] Address [address] [place] [address]. [place], [place] [address] [place] [address] Care Team Providers Care Rip And Groove Machine Operator Name Role Phone Miguel Ángel Olea MD Primary Care Provider [phone] Reason for Visit * Reason Comments Anxiety Knee Pain left, arthritis, kne e is stiff, bone on bone Encounter Details Date Type Department Care Team (Late st Contact Info) Description 03/08/2020 11:40 AM CDT Office Visit [facility] Medical Group Family and Sports Medicine - [place] [address] [place] [address] Miguel Ángel Olea MD [address] [address] Anxiety; Knee Pain (left, arthritis, knee is stiff, bone on bone) Social History Tobacco Use Types Packs/Day Years Used Date Smoking Tobacco: Former Cigarettes 0.5 15 Smokeless Tobacco: Never Tobacco Cessation:Counseling Given: No Alcohol Use Standard Drinks/Week Comments Yes 0 [...] AM CDT documented as of this encounter Last Filed Vital Signs Vital Sign Reading Time Taken Comments Blood Pressure 124/74 03/08/2020 11:27 AM CDT Pulse 81 03/08/2020 11:27 AM CDT Temperature 36.3 ??C (97.4 ??F) 03/08/2020 11:27 AM C DT Respiratory Rate 18 03/08/2020 11:27 AM CDT Oxygen Saturation 99% 03/08/2020 11:27 AM CDT Inhaled Oxygen Concentration - - Weight 116.6 kg (257 lb) 03/08/2020 11:27 AM CDT Height 162.6 cm (5' 4 ) 03/08/2020 11:27 AM CDT Body Mass Index 44.11 03/08/2020 11:27 AM CDT documented in this encounter Progress Notes * Miguel Ángel Olea MD - 03/08/2020 11:40 AM CDT Images from the original note were not included. Primary and Specialty Care [place] Encounter Date: 03/08/2020 Chief Complaint:: Anxiety and Knee Pain (left, arthritis, knee is stiff, bone on bone) History of Present Illness: Renata Lei is a 39-year-old female, who presents for an evaluation of anxiety. Onset approximately 8 months ago. Symptoms are triggered by unknown.There are no suicidal ideations or plan today. No history concerning for [...] ??? Bright red blood per rectum ??? Headache ??? Hemorrhoids ??? Hypercholesterolemia ??? Knee pain, left ??? Low vitamin D level ??? Overweight ??? Sinusitis ??? Anxiety Medical History: Past Medical History: Diagnosis Date [...] resource strain: Not on file ??? Food insecurity Worry: Not on file Inability: Not on file ??? Transportation needs Medical: Not on file Non-medical: Not on file Tobacco Use ??? Smoking status: Former Smoker Packs/day: 0.50 Years: 15.00 Pack years: 7.50 Types: Cigarettes ??? Smokeless tobacco: Never Used Substance and Sexual Activity ??? Alcohol use: Yes Comment: 1 drink per year ??? Drug use: No ??? Sexual activity: Not on file Lifestyle ??? Physical activity Days per week: Not on file Minutes per session: Not on file ??? Stress: Not on file Relationships ??? Social connections Talks on phone: Not on file Gets together: Not on file Attends zoroastrian service: Not on file Active member of club or organization: Not on file Attends meetings of clubs or organizations: Not on file Relationship status: Not on file ??? Intimate partner violence Fear of current or ex partner: Not on file Emotionally abused: Not on file Physically abused: Not on file Forced sexual activity: Not on file Other Topics Concern ??? Not on file Social History Narrative ??? Not on file Medications: Current Outpatient Medications: ??? ALPRAZolam 0.25 MG tablet, Take 1 tablet (0.25 mg total) by mouth 3 (three) times daily as needed. FOR ANXIETY, Disp: 30 tablet, Rfl: 0 ??? atorvastatin 10 MG tablet, Take 1 tablet by mouth daily., Disp: , Rfl: ??? iwznkiltlx-wmjqbrbvrrzvc-azedwbry 50-325-40 MG tablet, Take 1 tablet by mouth every 4 (four) hours as needed for Pain., Disp: , Rfl: ??? cetirizine 10 MG tablet, Take 10 mg by mouth daily., Disp: , Rfl: ??? Cholecalciferol (VITAMIN D3) 1.25 MG (41739 UT) Tab, Take 1 tablet by mouth once a week., Disp:, Rfl: ??? escitalopram (LEXAPRO) 10 MG tablet, Take 1 tablet (10 mg total) by mouth daily., Disp: 30 tablet, Rfl: 4 ??? nortriptyline 25 MG capsule, Take 25 mg by mouth., Disp: , Rfl: ??? topiramate 100 MG tablet, Take 1 tablet by mouth 2 (two) times daily., Disp: , Rfl: Allergies: No Known Allergies Vitals: Filed Vitals: 03/08/20 1127 BP: 124/74 Pulse: 81 Resp: 18 Temp: 97.4 ??F (36.3 ??C) SpO2: 99% Weight: 116.6 kg (257 lb) Height: 5' 4 (1.626 m) PE: [...] Encounter Diagnose(s) ICD-10-CM ICD-9-CM SNOMED CT(R) 1. Chronic pain of left knee M25.562 719.46 KNEE PAIN G89.29 338.29 2. Anxiety F41.9 300.00 ANXIETY 3. Overweight E66.3 278.02 OVERWEIGHT Recommendations and Plan: 1. Encouraged physical activity [...] recommended counselors. Encouraged f/u in clinic in 6 Month(s). Review the rationale for treatment duration of greater than 6 months after symptoms are completely controlled. Counselled that oncedecision to stop the medication is reached, it will need to be slowly titrated off. Patient understands these risks and wants to start therapy. No orders of the defined types were placed in this encounter. Cannot display discharge medications since this is not an admission. Medications Discontinued During This Encounter Medication Reason ??? docusate sodium (STOOL SOFTENER) 100 MG capsule ??? topiramate 100 MG tablet ??? vitamin D2, ergocalciferol, 23601 UNITS capsule MIGUEL ÁNGEL OLEA MD 03/08/2020 documented in this encounter Plan of Treatment Not on file documented as of this encounter Visit Diagnoses Diagnosis Chronic pain of left knee- Primary Pain in joint, lower leg Anxiety Anxiety state, unspecified Overweight documented in this encounter Additional Health Concerns Assessment Noted Time PHQ-9 Depression Total Score: 2 03/08/20 20 11:36 AM CDT documented as of this encounter Care Teams Rip And Groove Machine Operator Relationship Specialty Start Date End Date Miguel Ángel Olea MD [address] [address] PCP - General FAMILY PRACTICE 07/16/16 documented as of this encounter
--- OUTSIDE RECORDS SUMMARY | 2024-05-29 17:26 | XMS_ITS | Encounter Summary ---
Author Organization [facility] Address [address] [place] [address]. [place], [place] [address] [place] [address] Care Team Providers Care High Reach Operator Name Role Phone Miguel Ángel Olea MD Primary Care Provider [phone] Reason for Visit * Reason Comments Mammogram (SCAN) Encounter Details Date Type Department Care Team ([facility] st Contact Info) Description 10/30/2021 Scan [facility] BUSINESS OFFICE [address] [place] [address] Scanned, Doc Med Group Mammogram (SCAN) Social History Tobacco Use Types Packs/Day [...] Procedure Name Priority Date/Time Associated Diagnosis Comments MAMMOGRAM GENERIC (SCAN ORDER) Routine 10/30/2021 documented in this encounter Results * MAMMOGRAM (10/30/2021) Anatomical Region Laterality Modality Other us Doc Med Group Scanned SCANNING Final Resu lt documented in this encounter Visit Diagnoses Not on filedocumented in this encounter Additional Health Concerns Assessment Noted Time PHQ-9 Depression Total Score: 2 03/08/20 20 11:36 AM CDT documented as of this encounter Care Teams High Reach Operator Relationship Specialty Start Date End Date Miguel Ángel Olea MD [address] [address] PCP - General FAMILY PRACTICE 07/16/16 documented as of this encounter
--- OUTSIDE RECORDS SUMMARY | 2024-05-29 17:26 | XMS_ITS | Encounter Summary ---
Author Organization [facility] Address [address] [place] [address]. [place], [place] [address] [place] [address] Care Team Providers Care Mathematics Lecturer Name Role Phone Miguel Ángel Olea MD Primary Care Provider [phone] Encounter Details Date Type Department Care Team (Latest Contact Info) Description 03/08/2020 Travel Social History Tobacco Use Types Packs/Day [...] AM CDT documented as of this encounter Plan of Treatment Not on file documented as of this encounter Visit Diagnoses Not on filedocumented in this encounter Additional Health Concerns Assessment Noted Time PHQ-9 Depression Total Score: 2 03/08/20 20 11:36 AM CDT documented as of this encounter Care Teams Mathematics Lecturer Relationship Specialty Start Date End Date Miguel Ángel Olea MD [address] [facility] [address] [place] [address] PCP - General FAMILY PRACTICE 07/16/16 documented as of this encounter
--- OUTSIDE RECORDS SUMMARY | 2024-05-29 17:26 | XMS_ITS | Continuity of Care Document ---
Author Name [facility] Address [address] [place] [address] Organization Unknown Address [address] [place] [address] Medications No known medications Problems No known problems
--- OUTSIDE RECORDS SUMMARY | 2024-05-29 17:26 | XMS_ITS | Clinical Summary ---
Author Organization [facility] Address [address] [facility] [place] [address] Care Team Providers Care Sales Leader Name Role Phone Miguel Ángel Olea MD Primary Care Provider [phone] Source Comments [facility],non-owned Affiliates and Associated Physician Practices is amultiple site organization consisting of ambulatory clinics and hospital sitesin [place], [place], [place] and [place]. This disclosure is being madepursuant to the Care Everywhere program and may not contain all information available regarding this patient. Last updated 18.[facility] Medications * Be aware that medications may not be up to date on this document. Alwaysverify current medications with the patient. Medication Sig Dispensed Refills Start Date End Date Status ergocalciferol (DRISDOL) 36593 UNITS capsule Take 50,000 Units by mouth [...] 03/07/2024 Overview (03/07/2024): Lela Lei 1980 Referring Wallpaper Hanger Helper: Listing Date: Dialysis Info: Type: Time: NOD Blood Type: Body mass index is 43.08 kg/m??. ALERTS Deployment Manager: Past Medical History: Diagnosis Date Allergic rhinitis [...] PPD/Quant Gold: Colonoscopy: Mammo: Pap: Panorex/Dental: SW: SCALE BALANCER forms: RD: Items Still Pending: Encounters Date Type Department Care Team Description 05/05/2024 Telephone [facility] [address]L [address] [facility], [place] [id number] Robert Sage, RN Kidney/Liver Donor Evaluation from Last 3 Months Family History Medical History Relation Name Comments DVT - Deep Vein Thrombosis Father Diabetes - Type 2 Father Relation Name Status Comments Father Social History Tobacco Use Types Packs/Day Years Used Date Smoking Tobacco: Former Cigarettes Q uit: 08/27/2017 Smokeless Tobacco: Never Sex and Gender Information Value Date Recorded Sex Assigned at Not on file Gender Identity Not on file Sexual Orientation Not on file Last Filed Vital Signs Vital Sign Reading Time Taken Comments Blood Pressure 127/88 04/28/2018 1:09 PM RECREATION COUNSELOR Pulse 101 04/28/2018 1:09 PM RECREATION COUNSELOR Temperature 36.3 ??C (97.3 ??F) 04/28/2018 1:09 PM CS T Respiratory Rate - - Oxygen Saturation - - Inhaled Oxygen Concentration - - Weight 113.9 kg (251 lb) 04/28/2018 1:09 PM RECREATION COUNSELOR Height 162.6 cm (5' 4 ) 04/28/2018 1:09 PM RECREATION COUNSELOR Body Mass Index 43.08 04/28/2018 1:09 PM RECREATION COUNSELOR Plan of Treatment Health Maintenance Due Date Last Done Comments PAP SMEAR 1980 HIV SCREENING 1996 HEPATITIS C SCREENING 03/07/1999 DTAP/TDAP/TD VACCINES (1 - Tdap) 2000 HEPATITIS B VACCINE (1 of 3 - 19+ 3-dose series) 2000 MAMMOGRAM 10/31/2023 10/30/2021, 10/16, 10/30/2021 COVID-19 VACCINE (3 - 2023- season) 2024 08/16/2020, 07/27/2020 INFLUENZA VACCINE (#1) 2024 , 03/05/2021, 06/11/2020, Additional history exists DEPRESSION SCREENING 05/18/2024 ZOSTER VACCINE (1 of 2) 2031 HIB VACCINE Aged Out No longer eligi ble based on patient's age to complete this topic HPV VACCINE Aged Out No longer eligi ble based on patient's age to complete this topic MENINGOCOCCAL (Group B) VACCINE Aged Out No longer eligible based on patient's age to complete this topic MENINGOCOCCAL VACCINE Aged Out No martinez yomi eligible based on patient's age to complete this topic PNEUMOCOCCAL VACCINE Aged Out No long er eligible based on patient's age to complete this topic Advance Directives * Full Code (Latest Code Status on File) Date Activated Date Inactivated Comments 02/02/2024 12:40 PM Care Teams Sales Leader Relationship Specialty Start Date End Date Miguel Ángel Olea MD PCP - General 01/26/18
--- OUTSIDE RECORDS SUMMARY | 2024-05-29 17:26 | XMS_ITS | Encounter Summary ---
Author Organization [facility] Address [address] [facility] [place] [address] Care Team Providers Care Information Coder Name Role Phone Miguel Ángel Olea MD Primary Care Provider [phone] Reason for Visit * Reason Onset Date Comments General 05/25/2018 Encounter Details Date Type Department Care Team (Late st Contact Info) Description 05/25/2018 Telephone [facility] Neurology [address] [place] [address] Rohit Daly MD [address] [place] [address] General Social History Tobacco Use Types Packs/Day Years Used Date Smoking Tobacco: Former Cigarettes Q uit: 08/27/2017 Smokeless Tobacco: Never Sex and Gender Information Value Date Recorded Sex Assigned at Not on file Gender Identity Not on file Sexual Orientation Not on file documented as of this encounter Miscellaneous Notes * Telephone Encounter - Yvette Thomas, RN - 05/25/2018 8:58 AM CST Received call from patient concerning her FMLA papers - she states she is scheduled for her MRI at [facility] on 11/24/18 at 10 am. Returned call to patient - Dr. Daly has not been in clinic since paperwork received. MRI may have to be rescheduled due to approval needed from [facility] . Verbalizes understanding. BOXING INSTRUCTOR documented in this encounter Plan of Treatment Not on file documented as of this encounter Visit Diagnoses Not on filedocumented in this encounter Care Teams Information Coder Relationship Specialty Start Date End Date Miguel Ángel Olea MD PCP - General 01/26/18 documented as of this encounter
--- OUTSIDE RECORDS SUMMARY | 2024-05-29 17:26 | XMS_ITS | Encounter Summary ---
Author Organization [facility] Address [address] [place] [address] Care Team Providers Care Machine Operator Hop Picker Name Role Phone Dot Shultz DO Primary Care Provider [phone] Encounter Details Date Type Department Care Team (Latest Contact Info) Description 02/20/2014 1:00 PM CDT - 02/20/2014 1:22 PM CDT Hospital Encounter [facility] MATERNAL/ EVALUATION UNIT [address] [facility] [place] [address] Tarun Hendrickson DO [address] [facility] [address] [address] Discharge Disposition: Home or Self Care Social History Tobacco Use Types Packs/Day Years Used Date Smoking Tobacco: Never Assessed Sex and Gender Information Value Date Recorded Sex Assigned at Not on file Gender Identity Not on file Sexual Orientation Not on file documented as of this encounter Progress Notes * Miranda Goss, MS CCC-A - 02/20/2014 3:22 PM CDT Genetic counseling for Down syndrome risk of 1 in 100 based on penta screen. Family history is significant for Renata's mother and two maternal aunts with fibromyalgia, the same maternal aunts with ovarian cancer in their 30's, a cousin with Down syndrome and two individuals with autism (Renata's sister's son and the son of a maternal first cousin). Options discussed related to DS risk include ultrasound, NIPT and amniocentesis. Cancer counselor information was provided to the patient. Pursuit of additional information regarding autism was offered and declined. The patient indicated that she is likely to either elect NIPT or decline further testing following ultrasound exam. See ultrasound report for decision. The patient will follow up with Dr. Hendrickson. See Letters for additional details. Miranda Goss MS CCC-A A total of 60 minutes was spent in [id number] counseling. documented in this encounter Plan of Treatment Not on file documented as of this encounter Procedures Procedure Name Priority Date/Time Associated Diagnosis Comments IMAGING/RADIOLOGY/X RAY RESULTS ORDER 07/29/2014 4:59 AM CDT documented in this encounter Results * IMAGING/RADIOLOGY/XRAY RESULTS ORDER (07/29/2014 4:59 AM CDT) Anatomical Region Laterality Modality Other Narrative 07/29/2014 4:59 AM CDT Ordered by an unspecified provider. Scanned Document IMAGING documented in this encounter Visit Diagnoses Diagnosis Maternal serum screen positive for trisomy 21- Primary documented in this encounter Care Teams Machine Operator Hop Picker Relationship Specialty Start Date End Date Dot Shultz DO [address] [place] [id number] PCP - General Family Medicine 02/20/14 01/25/18 documented as of this encounter
--- OUTSIDE RECORDS SUMMARY | 2024-05-29 17:26 | XMS_ITS | Continuity of Care Document ---
Author Name Aniceto Cody Address [address] [facility] [place] [address] Organization Unknown Address [address] [place], [place] [id number] [place] [address] Medications No known medications Problems No known problems
--- OUTSIDE RECORDS SUMMARY | 2024-05-29 17:26 | XMS_ITS | Clinical Summary ---
Author Organization [facility] Address [address] [place] [address]. [place], [place] [address] [place] [address] Care Team Providers Care Chief Jailer Name Role Phone Miguel Ángel Olea MD Primary Care Provider [phone] Allergies No known active allergies Medications cetirizine 10 MG tablet Take 10 mg by mouth daily. Active butalbital-acet aminophen-caffe ine 50-325-40 MG tablet Take 1 tablet by mouth every 4 (four) hours as needed for Pain. Active topiramate 100 MG tablet Take 1 tablet by mouth 2 (two) times daily. 07/17/2016 Active Cholecalciferol (VITAMIN D3) 1.25 MG (32808 UT) Tab Take 1 tablet by mouth once a week. 01/08/2018 Active atorvastatin 10 MG tablet Take 1 tablet by mouth daily. 07/25/2016 Active nortriptyline 25 MG capsule Take 25 mg by mouth. 04/28/2018 Active ALPRAZolam 0.25 MG tabletIndicatio ns:Anxiety Take 1 tablet (0.25 mg total) by mouth 3 (three) times daily as needed. FOR ANXIETY 30 tablet 03/08/2020 Active escitalopram (LEXAPRO) 10 MG tabletIndicatio ns:Anxiety Take 1 tablet (10 mg total) by mouth daily. 30 tablet 4 03/08/2020 Active Active Problems Problem Noted Date Diagnosed Date Anxiety 12/19/2019 Bright red blood per rectum 04/17/2017 Hemorrhoids 01/22/2017 Sinusitis 12/18/2016 Overweight 11/17/2016 Low vitamin D level 07/25/2016 Headache 07/16/2016 Hypercholesterolemia 07/09/2015 Allergic rhinitis 06/14/2015 Knee pain, left 06/14/2015 Resolved Problems Problem Noted Date Diagnosed Date Resolved Date Encounter for preventive health examination 03/27/2015 01/27/2020 Immunizations Name Administration Dates Next Due Influenza Adult (Generic) 02/24/2019 Family History Medical History Relation Comments Diabetes Father Hyperlipidemia Father Fibromyalgia Mother None Sister Relation Status Comments Father Alive Mother Alive Sister Alive Social History Tobacco Use Types Packs/Day Years [...] Mass Index 44.11 03/08/2020 11:27 AM CDT Plan of Treatment Health Maintenance Due Date Last Done Comments Cervical Cancer Screening Pap Smear (Age 30 to 64) Every 3 Years 1981 Annual Physical 1984 Hepatitis C 1999 DTaP, Tdap and Td Vaccines (1 - Tdap) 2000 Hepatitis B Vaccines (1 of 3 - 19+ 3-dose series) 2000 Cervical Cancer Screening Pap with HPV Testing (Age 30 to 64) Every 5 Years 2011 Cervical Cancer Screening with HPV 2011 Mammogram Screening 10/31/2023 10/30/2021 COVID-19 Vaccine (3 - 2024-25 season) 2024 08/16/2020, 07/27/2020 Influenza Adult (#1) 2024 02/06/2022, 03/05/2021, 06/11/2020, Additional history exists HPV Vaccines Aged Out No longer eligi ble based on patient's age to complete this topic Meningococcal Vaccine Aged Out No martinez yomi eligible based on patient's age to complete this topic Pneumococcal Vaccine: Pediatrics (0 to 5 Years) and At-Risk Patients (6 to 64 Years) Aged Out No longer eligible based on patient's age to complete this topic RSV Immunizations Under 20 Months Aged Out No longer eligible based on patient's age to complete this topic Procedures Procedure Name Priority Date/Time Associated Diagnosis Comments MAMMOGRAM GENERIC (SCAN ORDER) Routine 10/30/2021 from Last 3 Months or Most Recently Relevant to Health Maintenance Results * MAMMOGRAM (10/30/2021) Anatomical Region Laterality Modality Other [facility] Scanned SCANNING Final Resu lt from Last 3 Months or Most Recently Relevant to Health Maintenance Insurance Care Teams Chief Jailer Relationship Specialty Start Date End Date Miguel Ángel Olea MD [address] [facility] [address] [place] [address] PCP - General FAMILY PRACTICE 07/16/16
--- OUTSIDE RECORDS SUMMARY | 2024-05-29 17:26 | XMS_ITS | Encounter Summary ---
Author Organization [facility] Address [address] [place] [address]. [place], [place] [address] [place] [address] Care Team Providers Care Pack Worker Name Role Phone Miguel Ángel Olea MD Primary Care Provider [phone] Reason for Visit * Reason Onset Date Comments Medication 07/06/2018 Encounter Details Date Type Department Care Team (Late st Contact Info) Description 07/06/2018 Telephone [facility] Family and Sports Medicine - [place] [address] [place] [phone] Miguel Ángel Olea MD [address] [phone] Medication Social History Tobacco Use Types Packs/Day Years [...] as of this encounter Progress Notes * Shani Mullins - 07/06/2018 11:47 AM CST Patient said her son got a fever last night started feeling bad, took her to the doc this morning and he was diagnosed with the FLU. Can we send Tamiflu out for mom to pretreat? [place] [address] [place] . EN WORKER documented in this encounter Plan of Treatment Not on file documented as of this encounter Visit Diagnoses Diagnosis Examination, medical, general- Primary Unspecified general medical examination documented in this encounter Care Teams Pack Worker Relationship Specialty Start Date End Date Miguel Ángel Olea MD [address] [address] PCP - General FAMILY PRACTICE 07/16/16 documented as of this encounter
--- OUTSIDE RECORDS SUMMARY | 2024-05-29 17:26 | XMS_ITS | Encounter Summary ---
Author Organization [facility] Address [address] [facility] [place] [address] Care Team Providers Care Nursing Surgical Services Director Name Role Phone Miguel Ángel Olea MD Primary Care Provider [phone] Reason for Referral * OP/Amb RFL Auth (Routine) - Open Specialty Diagnoses / Procedures Referred By Rigoberto french Referred To Contact Diagnoses Willing to be kidney donor Procedures EKG 12-LEAD Sushant [place] MD [address] [facility] [place] [address] Referral ID Status Reason Start Date Expiration Date Visits Re quested Visits Authorized [id number] Open 02/08/2024 02/07/2025 1 1 * Radiology Services (Routine) - Open Specialty Diagnoses / Procedures Referred By Rigoberto french Referred To Contact Diagnoses Willing to be kidney donor Procedures CT Angio Abdomen Pelvis Sushant [place] MD [address] [facility] [place] [address] Referral ID Status Reason Start Date Expiration Date Visits Re quested Visits Authorized [id number] Open 02/08/2024 02/07/2025 1 1 Encounter Details Date Type Department Care Team (Late st Contact Info) Description 02/02/2024 Orders Only [facility] [address] [facility], [place] [address] Kian Camarillo, RN Willing to be kidney donor Social History Tobacco Use Types Packs/Day Years Used Date Smoking Tobacco: Former Cigarettes Q uit: 08/27/2017 Smokeless Tobacco: Never Sex and Gender Information Value Date Recorded Sex Assigned at Not on file Gender Identity Not on file Sexual Orientation Not on file documented as of this encounter Miscellaneous Notes * Addendum Note - Kian Camarillo, RN - 02/08/2024 11:24 AM CDTAddended by: KIAN CAMARILLO on: 02/08/2024 11:24 AM Modules accepted: Orders documented in this encounter Plan of Treatment Scheduled Orders Name Type Priority Associated Diagnoses Orde r Schedule LITHOLINK 24HR URINE PANEL QUANT Lab Routine Willing to be kidney donor Ordered: 02/02/2024 ALBUMIN URINE TIMED Lab Routine Willing to be kidney donor 1 Occurrences starting 02/08/2024 until 08/06/2024 ALCOHOL ETHYL BLOOD Lab Routine Willing to be kidney donor Expected: 02/08/2024, Expires: 08/06/2024 CBC WITH DIFFERENTIAL Lab Routine Willing to be kidney donor Expected: 02/08/2024, Expires: 08/06/2024 COMPREHENSIVE METABOLIC PANEL Lab Routine Willing to be kidney donor Expected: 02/08/2024, Expires: 08/06/2024 CREATININE CLEARANCE URINE Lab Routine Willing to be kidney donor 1 Occurrences starting 02/08/2024 until 08/06/2024 CT Angio Abdomen Pelvis Imaging Routine Willing to be kidney donor 1 Occurrences starting 02/08/2024 until 08/06/2024 CYSTATIN C WITH REFLEX TO EGFR Lab Routine Willing to be kidney donor 1 Occurrences starting 02/08/2024 until 08/06/2024 CYTOMEGALOVIRUS ANTIBODY IGG BLOOD Lab Routine Willing to be kidney donor Expected: 02/08/2024, Expires: 08/06/2024 CYTOMEGALOVIRUS ANTIBODY IGM BLOOD Lab Routine Willing to be kidney donor Expected: 02/08/2024, Expires: 08/06/2024 EKG 12-LEAD ECG Routine Willing to be kidney donor 1 Occurrences starting 02/08/2024 until 08/06/2024 LEONARDO-MOCTEZUMA VIRUS AB VIRAL CAPSID IGG/IGM Lab Routine Willing to be kidney donor 1 Occurrences starting 02/08/2024 until 08/06/2024 HCG BETA BLOOD QUANTITATIVE Lab Routine Willing to be kidney donor 1 Occurrences starting 02/08/2024 until 08/06/2024 HEMOGLOBIN A1C Lab Routine Willing to be kidney donor Expected: 02/08/2024, Expires: 08/06/2024 HEPATITIS B CORE ANTIBODY TOTAL Lab Routine Willing to be kidney donor Expected: 02/08/2024, Expires: 08/06/2024 HEPATITIS B SURFACE ANTIBODY Lab Routine Willing to be kidney donor Expected: 02/08/2024, Expires: 08/06/2024 HEPATITIS B SURFACE ANTIGEN W RFLX CONFIRMATION Lab Routine Willing to be kidney donor 1 Occurrences starting 02/08/2024 until 08/06/2024 HEPATITIS C AB SCREEN RFLX NAAT QUANT Lab STAT Willing to be kidney donor Expected: 02/08/2024, Expires: 08/06/2024 HIV 1/0/2 RFLX TO WB DONOR Lab Routine Willing to be kidney donor 1 Occurrences starting 02/08/2024 until 08/06/2024 HIV/HCV/HBV ASIA DONOR Lab Routine Willing to be kidney donor Expected: 02/08/2024, Expires: 08/06/2024 HLA TYPING DNA LOW RESOLUTION A,B,C Blood Bank Routine Willing to be kidney donor 1 Occurrences starting 02/08/2024 until 08/06/2024 HLA TYPING DNA LOW RESOLUTION DR,DQ Blood Bank Routine Willing to be kidney donor 1 Occurrences starting 02/08/2024 until 08/06/2024 LIPID PROFILE Lab Routine Willing to be kidney donor Expected: 02/08/2024, Expires: 08/06/2024 MICROALB/CREAT RATIO URINE RANDOM PANEL Lab Routine Willing to be kidney donor Expected: 02/08/2024, Expires: 08/06/2024 NICOTINE + METABOLITES BLOOD Lab Routine Willing to be kidney donor Expected: 02/08/2024, Expires: 08/06/2024 PHOSPHORUS BLOOD Lab Routine Willing to be kidney donor Expected: 02/08/2024, Expires: 08/06/2024 PROTEIN URINE RANDOM QUANTITATIVE Lab Routine Willing to be kidney donor 1 Occurrences starting 02/08/2024 until 08/06/2024 PROTEIN URINE TIMED QUANTITATIVE Lab Routine Willing to be kidney donor 1 Occurrences starting 02/08/2024 until 08/06/2024 PT-INR [facility] Lab Routine Willing to be kidney donor 1 Occurrences starting 02/08/2024 until 08/06/2024 PTT [facility] Lab Routine Willing to be kidney donor Expected: 02/08/2024, Expires: 08/06/2024 QUANTIFERON-TB GOLD PLUS 4-TUBE Lab Routine Willing to be kidney donor 1 Occurrences starting 02/08/2024 until 08/06/2024 SYPHILIS ANTIBODY CASCADING REFLEX Lab Routine Willing to be kidney donor 1 Occurrences starting 02/08/2024 until 08/06/2024 STRONGYLOIDES ANTIBODY IGG Lab Routine Willing to be kidney donor Expected: 02/08/2024, Expires: 08/06/2024 TRYPANOSOMA ANTIBODY IGG Lab Routine Willing to be kidney donor 1 Occurrences starting 02/08/2024 until 08/06/2024 TYPE + SCREEN PANEL Blood Bank Routine Willing to be kidney donor 1 Occurrences starting 02/08/2024 until 08/06/2024 URIC ACID BLOOD Lab Routine Willing to be kidney donor Expected: 02/08/2024, Expires: 08/06/2024 URINALYSIS REFLEX MICROSCOPIC REFLEX CULTURE Lab Routine Willing to be kidney donor 1 Occurrences starting 02/08/2024 until 08/06/2024 URINE DRUG SCREEN IMMUNOASSAY Lab Routine Willing to be kidney donor 1 Occurrences starting 02/08/2024 until 08/06/2024 WEST NILE VIRUS ANTIBODY IGG/IGM PANEL Lab Routine Willing to be kidney donor Expected: 02/08/2024, Expires: 08/06/2024 XR Chest 2Vw Imaging Routine Willing to be kidney donor 1 Occurrences starting 02/08/2024 until 08/06/2024 documented as of this encounter Procedures Procedure Name Priority Date/Time Associated Diagnosis Comments REF LAB-SPECIMEN STATUS REPORT Routine 02/26/2024 12:00 AM CDT documented in this encounter Results * REF LAB-SPECIMEN STATUS REPORT (02/26/2024 [...] AM CDT Performed at: ??01 - [facility] [address] ??[id number] Desktop Support Associate: Serina Tillman PhD, Phone: ??[phone] Sushant Meyers MD LAB - CHEMISTRY ORDERABLES [facility] ACCOUNT BILL [address] [place] [address] documented in this encounter Visit Diagnoses Diagnosis Willing to be kidney donor- Primary documented in this encounter Care Teams Nursing Surgical Services Director Relationship Specialty Start Date End Date Miguel Ángel Olea MD PCP - General 01/26/18 documented as of this encounter
--- OUTSIDE RECORDS SUMMARY | 2024-05-29 17:26 | XMS_ITS | Encounter Summary ---
Author Organization [facility] Address [address] [place] [address]. [place], [place] [address] [place] [address] Care Team Providers Care Art Specialist Name Role Phone Miguel Ángel Olea MD Primary Care Provider [phone] Encounter Details Date Type Department Care Team (Latest Contact Info) Description 01/05/2018 Abstract [facility] Nav Waddell MD Social History [...] on filedocumented in this encounter Care Teams Art Specialist Relationship Specialty Start Date End Date Miguel Ángel Olea MD [address] [address] PCP - General FAMILY PRACTICE 07/16/16 documented as of this encounter
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
--- OUTSIDE RECORDS SUMMARY | 2024-05-29 17:26 | XMS_ITS | Encounter Summary ---
Author Organization [facility] Address [address] [place] [address] Care Team Providers Care Drop Forger Name Role Phone Miguel Ángel Olea MD Primary Care Provider + Reason for Visit * Reason Comments Kidney/Liver Donor Evaluation Encounter Details Date Type Department Care Team (Late st Contact Info) Description 05/05/2024 Telephone [facility] [address] [place] [id number] Robert Sage RN Kidney/Liver Donor Evaluation Social History Tobacco Use Types Packs/Day Years Used Date Smoking Tobacco: Former Cigarettes Q uit: 08/27/2017 Smokeless Tobacco: Never Sex and Gender Information Value Date Recorded Sex Assigned at Not on file Gender Identity Not on file Sexual Orientation Not on file documented as of this encounter Miscellaneous Notes * Telephone Encounter - Robert Sage RN - 05/05/2024 5:35 PM CST Left message to return my call Sent litholink but no results in epic Trying to find out the status of donor evaluation. Pt to sched mammo, pap record requested, sent litholink, sent NLDAC application, sent my chart signup ING HOME ASSISTANT ADMINISTRATOR documented in this encounter Plan of Treatment Not on file documented as of this encounter Visit Diagnoses Not on filedocumented in this encounter Care Teams Drop Forger Relationship Specialty Start Date End Date Miguel Ángel Olea MD PCP - General 01/26/18 documented as of this encounter
--- OUTSIDE RECORDS SUMMARY | 2024-05-29 17:26 | XMS_ITS | Encounter Summary ---
Author Organization [facility] Address [address] [place] [address]. [place] [address] [place] [address] Care Team Providers Care Mold Shifter Name Role Phone Miguel Ángel Olea MD Primary Care Provider [phone] Reason for Visit * Reason Comments Other Dx'd with Strep A. H as bodyaches and chills. Encounter Details Date Type Department Care Team (Late st Contact Info) Description 05/10/2019 9:40 AM TOURIST GUIDE Office Visit [facility] Family and Sports Medicine - [place] [address] [place] [address] Miguel Ángel Olea MD [address] [address] Other (Dx'd with Strep A. Has bodyaches and chills.) Social History Tobacco Use Types Packs/Day Years [...] Sign Reading Time Taken Comments Blood Pressure 128/84 05/10/2019 9:45 AM TOURIST GUIDE Pulse 78 05/10/2019 9:45 AM TOURIST GUIDE Temperature 37.1 ??C (98.7 ??F) 05/10/2019 9:45 AM CS T Respiratory Rate 21 05/10/2019 9:45 AM TOURIST GUIDE Oxygen Saturation 97% 05/10/2019 9:45 AM TOURIST GUIDE Inhaled Oxygen Concentration - - Weight 108 kg (238 lb) 05/10/2019 9:45 AM TOURIST GUIDE Height 162.6 cm (5' 4 ) 05/10/2019 9:45 AM TOURIST GUIDE Body Mass Index 40.85 05/10/2019 9:45 AM TOURIST GUIDE documented in this encounter Progress Notes * Miguel Ángel Olea MD - 05/10/2019 9:40 AM CST [facility] [place] Encounter Date: 05/10/2019 Reason for Visit: Other (Dx'd with Strep A. Has bodyaches and chills.) History of Present Illness: Renata Lei is a 39-year-old female here for upper respiratory symptoms and concern about possible sinus infection. She has been experiencing the symptoms for several days and has tried OTC mediations without relief. She complains about, nasal discharge, facial tenderness and sinus pressurewith cough, with fever. ROS: General: Fatigue, No distress Eyes: No discharge, no change in vision HEENT: sinus tenderness, nasal discharge, with ear pain Cardio: No chest pain or palpitations Lung: Yes Cough, no wheezing GI: no diarrhea, nausea or vomiting Musculoskeletal: no arthralgias Neurological: positive for headaches Skin: No rash Medications: Current Outpatient Medications: ??? atorvastatin 10 MG tablet, Take 10 mg by mouth daily., Disp: , Rfl: ??? atorvastatin 10 MG tablet, Take 1 tablet by mouth daily., Disp: , Rfl: ??? fwivjgcaqz-hghiriyjsutjs-thwsnnwt 50-325-40 MG tablet, Take 1 tablet by mouth every 4 (four) hours as needed for Pain., Disp: , Rfl: ??? cetirizine 10 MG tablet, Take 10 mg by mouth daily., Disp: , Rfl: ??? Cholecalciferol (VITAMIN D3) 1.25 MG (65159 UT) Tab, Take 1 tablet by mouth [...] Disp: , Rfl: ??? vitamin D2, ergocalciferol, 23690 UNITS capsule, Take 50,000 Units by mouth daily., Disp: , Rfl: Allergies: No Known Allergies Medical History: Past Medical History: Diagnosis Date ??? Migraine 03/2017 ??? S/P debridement I & D left upper thigh with debridement Surgical History: Past Surgical History: Procedure Laterality Date ??? ABDOMINAL SURGERY 2005 lap choly ??? JOINT REPLACEMENT Left 1997 left knee replacement Social History: Social History Tobacco Use ??? Smoking status: Current Every Day Smoker Packs/day: 0.50 Years: 15.00 Pack years: 7.50 Types: Cigarettes ??? Smokeless tobacco: Never Used Substance Use Topics ??? Alcohol use: Yes Comment: 1 drink per year ??? Drug use: No Family History: Family History Problem Relation Name Age of Onset ??? Fibromyalgia Mother ??? Diabetes Father ??? Hyperlipidemia Father ??? None Sister PE: Physical Exam Constitutional: Vital signs are normal. Appears well-developed and well- nourished. She is cooperative. She appears ill. HENT: Head: Normocephalic and atraumatic. Right Ear: Hearing normal. Left Ear: Hearing normal. Nose: Rhinorrhea and sinus tenderness present. Mouth/Throat: Oropharynx is clear and moist and mucous membranes are normal. Neck: Neck supple. Cardiovascular: Regular rhythm, normal heart sounds and normal pulses. Pulmonary/Chest: Effort normal and breath sounds normal. Neurological: Alert and oriented to person, place, and time. Skin: Skin is warm and dry. Psychiatric: Has a normal mood and affect. Behavior is normal. Filed Vitals: 05/10/19 0945 BP: 128/84 Pulse: 78 Resp: 21 Temp: 98.7 ??F (37.1 ??C) SpO2: 97% Weight: 108 kg (238 lb) Height: 5' 4 (1.626 m) Body mass index is 40.85 kg/m??. Diagnoses/Impression: Encounter Diagnose(s) ICD-10-CM ICD-9-CM SNOMED CT(R) 1. Acute frontal sinusitis, recurrence not specified J01.10 461.1 ACUTE FRONTAL SINUSITIS azithromycin 250 MG tablet methylPREDNISolone, KILEY, 4 MG tablet hydrocodone-acetaminophen 5-325 MG tablet Recommendations and Plan: 1- Sinusitis: Acute...discussed meds and home care Discussed with the patient the above plan. Advised Renata Lei that if they have any worsening symptoms, fever or chills lasting longer than 48 hours that they should contact the office or ifafter hours seek medical attention. If no relief in the next 3-4 days patient is to return for further workup or change in medications. MIGUEL ÁNGEL OLEA MD 05/10/2019 IST GUIDE IST GUIDE documented in this encounter Plan of Treatment Not on file documented as of this encounter Visit Diagnoses Diagnosis Acute frontal sinusitis, recurrence not specified- Primary documented in this encounter Care Teams Mold Shifter Relationship Specialty Start Date End Date Miguel Ángel Olea MD [address] [address] PCP - General FAMILY PRACTICE 07/16/16 documented as of this encounter
--- OUTSIDE RECORDS SUMMARY | 2024-05-29 17:26 | XMS_ITS | Encounter Summary ---
Author Organization [facility] Address [address] [place] [address]. [place] [address] [place] [address] Care Team Providers Care Flue Tile Press Operator Name Role Phone Miguel Ángel Olea MD Primary Care Provider [phone] Encounter Details Date Type Department Care Team (Latest Contact Info) Description 01/04/2018 Abstract [facility] Miguel Ángel Olea MD [address] [place] [id number] Social History Tobacco Use Types Packs/Day Years [...] Sign Reading Time Taken Comments Blood Pressure 110/78 01/04/2018 9:49 AM CDT Pulse 73 01/04/2018 9:49 AM CDT Temperature - - Respiratory Rate - - Oxygen Saturation - - Inhaled Oxygen Concentration - - Weight 108.2 kg (238 lb 8 oz) 01/04/2018 9:49 AM CDT Height 162.6 cm (5' 4 ) 01/04/2018 9:49 AM CDT Body Mass Index 40.94 01/04/2018 9:49 AM CDT documented in this encounter Progress Notes * Miguel Ángel Olea MD - 01/04/2018 9:40 AM CDT Reason For Visit Chronic Recheck Visit Chief Complaint patient here today for FMLA paperwork- due to migraines would also like Cetirizine, vitamin D, Topiramate, and atorvastatin History of Present Illness HPI Free Text: 37 yo WAF for f/u on migrain. patient has not been seen for about 9 months and is bringing us [facility] papers for migraine headache. I explained that she will need to neurology for chronic migraine headache and provided referral. patient agreed immediately Review of Systems Constitutional: headache, but no fever. ENT: no earache. Cardiovascular: the heart rate was not slow. Respiratory: no shortness of breath and no wheezing. Gastrointestinal: no abdominal pain and no nausea. Active Problems 1. Allergic rhinitis (477.9) (J30.9) 2. Blood in stool (578.1) (K92.1) 3. Bright red blood per rectum (569.3) (K62.5) 4. Headache (784.0) (R51) 5. Hemorrhoids (455.6) (K64.9) 6. Hypercholesterolemia (272.0) (E78.00) 7. Knee pain, left (719.46) (M25.562) 8. Low vitamin D level (268.9) (E55.9) 9. Overweight (278.02) (E66.3) 10. Sinusitis (473.9) (J32.9) Past Medical History 1. History of ACL tear (844.2) (S83.519A) 2. History of Acute lateral meniscal tear (836.1) (S83.289A) 3. History of anemia (V12.3) (Z86.2) 4. History of gastroesophageal reflux (GERD) (V12.79) (Z87.19) 5. History of Puncture wound of thigh, left (890.0) (S71.132A) 6. History of Tear of PCL (posterior cruciate ligament) of knee (844.2) (S83.529A) Surgical History 1. History of Cholecystectomy Laparoscopic ?? dr. seth rg Md 2. History of Colonoscopy ?? 04/29/17: [facility] (medium sized external hemorrhoids, poor prep) 3. History of Decompress Fasciotomy Mult Compartments Of Thigh, Debridemen ?? rashida sandoval left thigh debrided and surgerical treated by Dr. Seth Rg General Surgeon. 4. History of Knee Surgery Left ?? LEFT KNEE MENISCAL TEAR, ACL/PCL TEAR, DONE AT [facility] IN [place] Family History Mother 1. Family history of fibromyalgia (V17.89) (Z82.69) Father 2. Family history of deep venous thrombosis (V17.49) (Z82.49) 3. Family history of diabetes mellitus (V18.0) (Z83.3) Paternal Grandmother 4. Family history of diabetes mellitus (V18.0) (Z83.3) 5. Family history of lung cancer (V16.1) (Z80.1) ?? grandmother - smoker grandfather - non smoker. 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 Paternal Grandfather 6. Family history of diabetes mellitus (V18.0) (Z83.3) 7. Family history of lung cancer (V16.1) (Z80.1) ?? grandmother - smoker grandfather - non smoker. 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 Aunt 8. Family history of Breast cancer, female ?? 2 aunts with breast cancer - and ovarian cancer. 9. Family history of Ovarian cancer ?? 4 aunts (maternal) with ovarian CA) Paternal Uncle 10. Family history of diabetes mellitus (V18.0) (Z83.3) Social History ?? Current every day smoker (305.1) (F17.200) ?? 5-10 cigg/day for 17 years (began 1997) ?? Currently working ? Rarely consumes alcohol (V49.89) (Z78.9) Current Meds 1. Atorvastatin Calcium 10 MG Oral Tablet; TAKE 1 TABLET BY MOUTH EVERY DAY; Therapy: 25Jul2016 to (Last Rx:25Jul2016) Requested for: 25Jul2016 Ordered 2. Cetirizine HCl - 10 MG Oral Tablet; TAKE ONE TABLET BY MOUTH ONCE DAILY DIRECTED; Therapy: 34Vat1334 to (Evaluate:30Ftl2155) Requested for: [id number]; Last Rx:[id number] Ordered 3. Ergocalciferol 72835 UNIT CAPS; TAKE 1 CAPSULE WEEKLY; Therapy: 25Jul2016 to (Last Rx:25Jul2016) Requested for: 25Jul2016 Ordered 4. Topiramate 100 MG Oral Tablet; TAKE 1 TABLET TWICE DAILY; Therapy: 17Jul2016 to (Evaluate:12Nov2017) Requested for: 12Qyz4096; Last Rx:[id number] Ordered Allergies 1. No Known Drug Allergies Vitals Recorded: 04Jan2018 09:49AM Heart Rate 73 Respiration 18 Systolic 110 Diastolic 78 O2 Saturation 95 Height 5 ft 4 in Weight 238 lb 8 oz BMI Calculated 40.94 BSA Calculated 2.11 Physical Exam Eyes Conjunctiva and lids: No swelling, erythema or discharge. Ears, Nose, Mouth, and Throat External inspection of ears and nose: Normal. Oropharynx: Normal with no erythema, edema, exudate or lesions. Pulmonary Respiratory effort: No increased work of breathing or signs of respiratory distress. Auscultation of lungs: Clear to auscultation. Cardiovascular Auscultation of heart: Normal rate and rhythm, normal S1 and S2, without murmurs. Abdomen Abdomen: Non-tender, no masses. Assessment 1. Headache (784.0) (R51) Plan Headache 1. Neurology Referral Outpatient Migrain Status: Need Information - Financial Authorization Requested for: [id number] Ordered; For: Headache; Ordered By: Miguel Ángel Olea Performed: Due: [id number] Discussion/Summary A&P 1- Migraine: Neurology referral Signatures Electronically signed by : Miguel Ángel Olea M.D.; Jan 04 2018 10:12AM ANTIQUE FURNITURE REPAIRER (Author) documented in this encounter Plan of Treatment Not on file documented as of this encounter Procedures Procedure Name Priority Date/Time Associated Diagnosis Comments TSH W/REFLEX Routine 01/04/2018 10:24 AM CDT COMPREHENSIVE METABOLIC PANEL Routine 01/04/2018 10:24 AM CDT LIPID PANEL Routine 01/04/2018 10:24 AM CDT CBC W/DIFF AUTOMATED Routine 01/04/2018 10:24 AM CDT VITAMIN D, 25 OH Routine 01/04/2018 10:2 4 AM CDT documented in this encounter Results * TSH W/REFLEX (SNS) (01/04/2018 10:24 AM CDT) TSH 0.462 0.358 - 3.74 uIU/ML [facility] TO EPIC CONVERSION Comment: Result Comment: HIGH DOSES OF BIOTIN MAY INTERFERE WITH THIS TEST RESULT. CORRELATION TO CLINICAL HISTORY AND PRESENTATION RECOMMENDED. FREE T4 NOT INDICATED 01/04/2018 10:2 4 AM CDT 01/04/2018 10:24 AM CDT Narrative [facility] TO [facility] CONVERSION - 01/04/2018 8:03 PM CDT Result Communication: No patient communication needed at this time Miguel Ángel Olea MD LABORATORY Final Result Performing Organization Address [facility] Phone Number [facility] TO EPIC CONVERSION * VITAMIN D, 25 OH (01/04/2018 10:24 AM CDT) VITAMIN D 25 HYDROXY S/P/B 35 30 - 100 NG/ML [facility] TO EPIC CONVERSION Comment: Result Comment: ? INTERPRETATION ? DEFICIENT ??<20 ? INSUFFICIENT 20-29 ?SUFFICIENT 30-100 01/04/2018 10:2 4 AM CDT 01/04/2018 10:24 AM CDT Narrative [facility] TO EPIC CONVERSION - 01/04/2018 7:59 PM CDT Result Communication: No patient communication needed at this time Miguel Ángel Olea MD LABORATORY Final Result Performing Organization Address [facility] de Phone Number [facility] TO EPIC CONVERSION * (ABNORMAL) CBC W/DIFF AUTOMATED (01/04/2018 10:24 AM CDT) WBC 7.6 4.5 - 11.0 x10'3/uL [facility] TO EPIC CONVERSION RBC 4.79 4.20 - 5.40 x10'6/uL [facility] TO EPIC CONVERSION HGB 13.5 12.0 - 16.0 G/DL [facility] TO EPIC CONVERSION HCT 42.3 38.0 - 48.0 % [facility] TO EPIC CONVERSION MCV 88.3 81.0 - 99.0 FL [facility] TO EPIC CONVERSION MCH 28.2 27.0 - 31.0 PG [facility] TO EPIC CONVERSION MCHC 31.9(L) 32.0 - 36.0 G/DL [facility] TO EPIC CONVERSION RDW 12.3 11.5 - 14.5 % [facility] TO EPIC CONVERSION PLT 276 130 - 400 x10'3/uL [facility] TO EPIC CONVERSION GLUCOSE 11.5 9.3 - 12.2 FL [facility] TO EPIC CONVERSION LYMPHOCYTES 38 % [facility] TO EPIC CONVERSION MONOCYTES 5 % [facility] T O EPIC CONVERSION EOSINOPHILS 5 % [facility] TO EPIC CONVERSION BASOPHILS 3 % [facility] T O EPIC CONVERSION SEG NEUTROPHILS 48 % [facility] ROUP TO EPIC CONVERSION ATYP. LYMPHS 1 % [facility] P TO EPIC CONVERSION DIFFERENTIAL TYPE MANUAL DIFFERENTIAL [facility] TO [facility]IC CONVERSION ABS. NEUTROPHILS CALCULATED 3.65 1.80 - 7.70 x10'3/uL [facility] TO EPIC CONVERSION ABS.LYMPHOCYTES CALCULATED 2.96 1.00 - 4.80 x10'3/uL [facility] TO EPIC CONVERSION ABS. MONOCYTES CALCULATED 0.38 0.24 - 0.86 x10'3/uL [facility] TO EPIC CONVERSION ABS. EOSINOPHIL CALCULATED 0.38(H) 0.04 - 0.36 x10'3/uL [facility] TO EPIC CONVERSION ABS. BASOPHIL CALCULATED 0.23(H) 0.01 - 0.08 x10'3/uL [facility] TO EPIC CONVERSION RBC MORPHOLOGY RBC MORPHOLOGY APPEARS NORMAL. SLIDE REVIEWED. [facility] TO EPIC CONVERSION PLT EST. ADEQUATE [facility] T O EPIC CONVERSION 01/04/2018 10:2 4 AM CDT 01/04/2018 10:24 AM CDT Narrative [facility] TO EPIC CONVERSION - 01/04/2018 8:00 PM CDT Result Communication: No patient communication needed at this time us Miguel Ángel Olea MD LABORATORY Final Result [facility] TO [facility]IC CONVERSION * COMPREHENSIVE METABOLIC PANEL (01/04/2018 10:24 AM CDT) SODIUM S/P/B 141 136 - 145 MMOL/L [facility] TO EPIC CONVERSION POTASSIUM S/P/B 4.7 3.5 - 5.1 MMOL/L [facility] TO EPIC CONVERSION CHLORIDE S/P/B 107 100 - 108 MMOL/L [facility] TO EPIC CONVERSION CO2 26.8 21 - 32 MMOL/L [facility] TO EPIC CONVERSION ANION GAP 11.9 8 - 20 MMOL/L [facility] TO EPIC CONVERSION BUN 15 7 - 18 MG/DL [facility] TO EPIC CONVERSION CREATININE S/P/B 0.77 0.55 - 1.02 MG/DL [facility] TO EPIC CONVERSION BUN CREATININE RATIO 19.5 6 - 26 [facility] TO [facility]IC CONVERSION GLUCOSE 92 70 - 99 MG/DL [facility] TO EPIC CONVERSION CALCIUM S/P/B 8.9 8.5 - 10.1 MG/DL [facility] TO EPIC CONVERSION BILIRUBIN TOTAL S/P/B 0.4 0.2 - 1.2 MG/DL [facility] TO EPIC CONVERSION AST 17 15 - 37 U/L [facility] TO EPIC CONVERSION ALT 43 14 - 55 U/L [facility] TO EPIC CONVERSION ALKALINE PHOSPHATASE S/P/B 85 50 - 136 U/L [facility] TO EPIC CONVERSION TOTAL PROTEIN S/P/B 7.0 6.4 - 8.2 G/DL [facility] TO EPIC CONVERSION ALBUMIN S/P/B 3.6 3.4 - 5.0 G/DL [facility] TO EPIC CONVERSION A/G RATIO 1.1 1.0 - 2.0 RATIO [facility] TO EPIC CONVERSION EGFR NON-AFR. AMER. >90 >90 ML/MIN/1.7 3 M2 [facility] TO EPIC CONVERSION EGFR AFR. AMER. >90 >90 ML/MIN/1.7 3 M2 [facility] TO EPIC CONVERSION Comment: Result Comment: NOTE: eGFR is not calculated for patients <18 years of age. This is an estimated GFR (CKD EPI) and should not be used for calculating drug doses. 01/04/2018 10:2 4 AM CDT 01/04/2018 10:24 AM CDT Narrative [facility] TO EPIC CONVERSION - 01/04/2018 8:03 PM CDT Result Communication: No patient communication needed at this time Miguel Ángel Olea MD LABORATORY Final Result [facility] TO EPIC CONVERSION * (ABNORMAL) LIPID PANEL (01/04/2018 10:24 AM CDT) CHOLESTEROL 244(H) <200 MG/DL [facility] TO EPIC CONVERSION TRIGLYCERIDES 105 <150 MG/DL [facility] TO EPIC CONVERSION HDL 46 >40.0 MG/DL [facility] TO EPIC CONVERSION CHOL/HDL RATIO 5.3(H) 0.0 - 4.5 [facility] TO EPIC CONVERSION VLDL CHOLESTEROL (LMP) 21 5 - 55 MG/DL [facility] TO EPIC CONVERSION LDL (CALCULATED) 177(H) <100 MG/DL [facility] TO EPIC CONVERSION NON HDL CHOLESTEROL 198(H) <130 MG/DL [facility] TO EPIC CONVERSION INTERPRETATION NIH CONCENSUS REPORT RECOMMENDATI ONS: ?ADULT ?CHILD ??LOW RISK: ?CHOLESTERO L ? <200 ? <170 ?TRIGLYCERI DE ?<150 ?--- ?HDL ? >=60 ?--- ?LDL ? <100 ? <110 ?BORDERLINE : ?CHOLESTERO L ? 200-239 ?? 170-199 ?TRIGLYCERI DE ?150-199 ? --- ?HDL ?40-59 ?--- ?LDL ? 100-159 ?? 110-129 ?HIGH RISK: ?CHOLESTERO L ? >=240 ?>=200 ?TRIGLYCERI DE ?>=200 ? --- ?HDL ?<40 ?--- ?LDL ? >=160 ?>=130 [facility] TO EPIC CONVERSION 01/04/2018 10:2 4 AM CDT 01/04/2018 10:24 AM CDT Narrative [facility] TO EPIC CONVERSION - 01/04/2018 8:03 PM CDT Result Communication: No patient communication needed at this time us Miguel Ángel Olea MD LABORATORY Final Result [facility] TO EPIC CONVERSION documented in this encounter Visit Diagnoses Not on filedocumented in this encounter Care Teams Flue Tile Press Operator Relationship Specialty Start Date End Date Miguel Ángel Olea MD [address] [facility] [address] '[place] [address] PCP - General FAMILY PRACTICE 07/16/16 documented as of this encounter
--- OUTSIDE RECORDS SUMMARY | 2024-05-29 17:27 | XMS_ITS | Encounter Summary ---
Author Organization [facility] Address [address] [place] [address]. [place], [place] [address] [place] [address] Care Team Providers Care Wellness Health Coach Name Role Phone Miguel Ángel Olea MD Primary Care Provider [phone] Encounter Details Date Type Department Care Team (Late st Contact Info) Description 01/04/2018 Orders Only [facility] [place], [place] [id number] Miguel Ángel Olea MD [address] [place] [address] [address] [place], [place] [id number] Social History Tobacco Use Types Packs/Day Years [...] on file documented as of this encounter Results * VITAMIN D, 25 OH (01/04/2018 10:24 AM CDT) VITAMIN D 25 HYDROXY S/P/B 35 30 - 100 NG/ML 01/04/2018 7:59 PM CDT [facility] Comment: ? INTERPRETATION ? DEFICIENT ??<20 ? INSUFFICIENT 20-29 ?SUFFICIENT 30-100 01/04/2018 10:2 4 AM CDT Miguel Ángel Olea MD LABORATORY Final Result Performing Organization Address [facility] Co de Phone Number [facility] [address] [place] [address], * TSH W/REFLEX (01/04/2018 10:24 AM CDT) TSH 0.462 0.358 - 3.74 uIU/ML 01/04/2018 8:03 PM CDT [facility] Comment: HIGH DOSES OF BIOTIN MAY INTERFERE WITH THIS TEST RESULT. CORRELATION TO CLINICAL HISTORY AND PRESENTATION RECOMMENDED. FREE T4 NOT INDICATED 01/04/2018 10:2 4 AM CDT Miguel Ángel Olea MD LABORATORY Final Result Performing Organization Address [facility] de Phone Number [facility] [address] [place] [address], * (ABNORMAL) LIPID PANEL (01/04/2018 10:24 AM CDT) CHOLESTEROL 244(H) <200 MG/DL 01/04/2018 8:03 PM CDT [facility] TRIGLYCERIDES 105 <150 MG/DL 01/04/2018 8:03 PM CDT [facility] HDL 46 >40.0 MG/DL 01/04/2018 8:03 PM CDT [facility] LDL (CALCULATED) 177(H) <100 MG/DL 01/04/2018 8:03 PM CDT [facility] NON HDL CHOLESTEROL 198(H) <130 MG/DL 01/04/2018 8:03 PM T [facility] CHOL/HDL RATIO 5.3(H) 0.0 - 4.5 01/04/2018 8:03 PM T [facility] VLDL CALCULATION 21 5 - 55 MG/DL 01/04/2018 8:03 PM [facility] LIPID INTERPRETATION 01/04/2018 8:03 PM T [facility] Comment: NIH CONCENSUS REPORT RECOMMENDATIONS: ?ADULT ?CHILD ??LOW RISK: ?CHOLESTEROL ? <200 ? <170 ?TRIGLYCERIDE ?<150 ?--- ?HDL ? >=60 ?--- ?LDL ? <100 ? <110 ??BORDERLINE: ?CHOLESTEROL ? 200-239 ?? 170-199 ?TRIGLYCERIDE ?150-199 ? --- ?HDL ?40-59 ?--- ?LDL ? 100-159 ?? 110-129 ??HIGH RISK: ?CHOLESTEROL ? >=240 ?>=200 ?TRIGLYCERIDE ?>=200 ? --- ?HDL ?<40 ?--- ?LDL ? >=160 ?>=130 01/04/2018 10:2 4 AM CDT Miguel Ángel Olea MD LABORATORY Final Result [facility] [address] [place] [address], * COMPREHENSIVE METABOLIC PANEL (01/04/2018 10:24 AM CDT) GLUCOSE 92 70 - 99 MG/DL 01/04/2018 8:03 PM CDT [facility] BUN 15 7 - 18 MG/DL 01/04/2018 8:03 PM CDT [facility] CREATININE S/P/B 0.77 0.55 - 1.02 MG/DL 01/04/2018 8:03 PM CDT [facility] SODIUM S/P/B 141 136 - 145 MMOL/L 01/04/2018 8:03 PM CDT [facility] POTASSIUM S/P/B 4.7 3.5 - 5.1 MMOL/L 01/04/2018 8:03 PM CDT [facility] CHLORIDE S/P/B 107 100 - 108 MMOL/L 01/04/2018 8:03 PM CDT [facility] CO2 26.8 21 - 32 MMOL/L 01/04/2018 8:03 PM CDT [facility] CALCIUM S/P/B 8.9 8.5 - 10.1 MG/DL 01/04/2018 8:03 PM CDT [facility] BILIRUBIN TOTAL S/P/B 0.4 0.2 - 1.2 MG/DL 01/04/2018 8:03 PM CDT [facility] TOTAL PROTEIN S/P/B 7.0 6.4 - 8.2 G/DL 01/04/2018 8:03 PM T [facility] ALBUMIN S/P/B 3.6 3.4 - 5.0 G/DL 01/04/2018 8:03 PM T [facility] AST 17 15 - 37 U/L 01/04/2018 8:03 PM CDT [facility] ALT 43 14 - 55 U/L 01/04/2018 8:03 PM T [facility] ALKALINE PHOSPHATASE S/P/B 85 50 - 136 U/L 01/04/2018 8:03 PM T [facility] ANION GAP 11.9 8 - 20 MMOL/L 01/04/2018 8:03 PM T [facility] BUN CREATININE RATIO 19.5 6 - 26 01/04/2018 8:03 PM T [facility] A/G RATIO 1.1 1.0 - 2.0 RATIO 01/04/2018 8:03 PM T [facility] EGFR NON-AFR. AMER. >90 >90 ML/MIN/1.7 3 M2 01/04/2018 8:03 PM T [facility] EGFR AFR. AMER. >90 >90 ML/MIN/1.7 3 M2 01/04/2018 8:03 PM T [facility] Comment: NOTE: eGFR is not calculated for patients <18 years of age. This is an estimated GFR (CKD EPI) and should not be used for calculating drug doses. 01/04/2018 10:2 4 AM CDT Miguel Ángel Olea MD LABORATORY Final Result [facility] [address] [place] [address], [place] [phone] * (ABNORMAL) CBC W/DIFF AUTOMATED (01/04/2018 10:24 AM CDT) [facility] Signature WBC 7.6 4.5 - 11.0 x10'3/uL 01/04/2018 7:36 PM CDT [facility] RBC 4.79 4.20 - 5.40 x10'6/uL 01/04/2018 7:36 PM CDT [facility] HGB 13.5 12.0 - 16.0 G/DL 01/04/2018 7:36 PM CDT [facility] HCT 42.3 38.0 - 48.0 % 01/04/2018 7:36 PM CDT [facility] MCV 88.3 81.0 - 99.0 FL 01/04/2018 7:36 PM CDT [facility] MCH 28.2 27.0 - 31.0 PG 01/04/2018 7:36 PM CDT [facility] MCHC 31.9(L) 32.0 - 36.0 G/DL 01/04/2018 7:36 PM CDT [facility] RDW 12.3 11.5 - 14.5 % 01/04/2018 7:36 PM CDT [facility] PLT 276 130 - 400 x10'3/uL 01/04/2018 7:36 PM CDT [facility] MPV 11.5 9.3 - 12.2 FL 01/04/2018 7:36 PM CDT [facility] DIFFERENTIAL TYPE MANUAL DIFFERENTIAL 01/04/2018 8:00 PM CDT [facility] SEG NEUTROPHILS 48 % 8 8:00 PM CDT [facility] LYMPHOCYTES 38 % 01/04/2018 8:00 PM CDT [facility] ATYP. LYMPHS 1 % 01/04/2018 8:00 PM CDT [facility] MONOCYTES 5 % 01/04/2018 8:00 PM CDT [facility] EOSINOPHILS 5 % 01/04/2018 8:00 PM CDT [facility] BASOPHILS 3 % 01/04/2018 8:00 PM CDT [facility] ABS. NEUTROPHILS CALCULATED 3.65 1.80 - 7.70 x10'3/uL 01/04/2018 8:00 PM CDT [facility] ABS.LYMPHOCYTES CALCULATED 2.96 1.00 - 4.80 x10'3/uL 01/04/2018 8:00 PM CDT [facility] ABS. MONOCYTES CALCULATED 0.38 0.24 - 0.86 x10'3/uL 01/04/2018 8:00 PM CDT [facility] ABS. EOSINOPHIL CALCULATED 0.38(H) 0.04 - 0.36 x10'3/uL 01/04/2018 8:00 PM CDT [facility] ABS. BASOPHIL CALCULATED 0.23(H) 0.01 - 0.08 x10'3/uL 01/04/2018 8:00 PM CDT [facility] RBC MORPHOLOGY RBC MORPHOLOGY APPEARS NORMAL. SLIDE REVIEWED. 01/04/2018 8:00 PM CDT [facility] PLT EST. ADEQUATE 01/04/2018 8:00 PM CDT [facility] 01/04/2018 10:2 4 AM CDT Miguel Ángel Olea MD LABORATORY Final Result [facility] [address] [place] [address], [place] [phone] documented in this encounter Visit Diagnoses Diagnosis Encounter for general adult medical examination without abnormal findings Unspecified general medical examination Pure hypercholesterolemia Vitamin D deficiency Unspecified vitamin D deficiency Overweight Headache documented in this encounter Care Teams Wellness Health Coach Relationship Specialty Start Date End Date Miguel Ángel Olea MD [address] [address] PCP - General FAMILY PRACTICE 07/16/16 documented as of this encounter
--- OUTSIDE RECORDS SUMMARY | 2024-05-29 17:27 | XMS_ITS | Encounter Summary ---
Author Organization [facility] Address [address] [place] [address]. [place], [place] [address] [place] [address] Care Team Providers Care Chain Forming Machine Operator Name Role Phone Jun Ivey MD Primary Care Provider Jun Long MD Primary Care Provider Jun Long MD Primary Care Provider Jun Long MD Primary Care Provider Jun Long MD Primary Care Provider Jun Long MD Primary Care Provider Glenroy yap Md Generic Calvin VAUGHN Primary Care Provider Unavailable Dot Shultz DO Primary Care Provider [phone] Miguel Ángel Olea MD Primary Care Provider [phone] Encounter Details Date Type Department Care Team (Late st Contact Info) Description 09/07/1997 Abstract [place] [address] Md Generic MD Calvin Social History Tobacco Use Types Packs/Day Years Used Date Smoking Tobacco: Never Assessed Comments Unknown Sex and Gender Information Value Date Recorded Sex Assigned at Not on file Legal Sex Female 5:36 PM CDT Gender Identity Not on file Sexual Orientation Not on file documented as of this encounter Plan of Treatment Not on file documented as of this encounter Visit Diagnoses Not on filedocumented in this encounter Care Teams Chain Forming Machine Operator Relationship Specialty Start Date End Date Jun Ivey MD PCP - General 07/06/15 07/15/16 Jun Ivey MD PCP - General 07/02/15 07/05/15 Jun Ivey MD PCP - General 06/29/15 07/01/15 Jun Ivey MD PCP - General 06/25/15 06/28/15 Jun Ivey MD PCP - General 06/22/15 06/24/15 Jun Ivey MD PCP - General 06/18/15 06/21/15 Nav Vaughn MD PCP - General 07/23/11 Dot Shultz DO [address] [address] PCP - General 01/24/11 07/22/11 Miguel Ángel Olea MD [address] [facility] [address] [place] [address] PCP - General FAMILY PRACTICE 07/16/16 documented as of this encounter
--- OUTSIDE RECORDS SUMMARY | 2024-05-29 17:27 | XMS_ITS | Encounter Summary ---
Author Organization [facility] Address [address] [place] [address]. [place], [place] [address] [place] [address] Care Team Providers Care System Engineer Name Role Phone Jun Ivey MD Primary Care Provider Jun Long MD Primary Care Provider Jun Long MD Primary Care Provider Jun Long MD Primary Care Provider Jun Long MD Primary Care Provider UnavailJun Larios MD Primary Care Provider Unavailrosalinda yap Md, Generic Calvin VAUGHN Primary Care Provider Unavailable Dot Shultz DO Primary Care Provider [phone] Miguel Ángel Olea MD Primary Care Provider [phone] Encounter Details Date Type Department Care Team (Late st Contact Info) Description 01/10/1999 Abstract [facility] [place], [place] [id number] June English, [address] [place], [place] [address] Social History Tobacco Use Types Packs/Day Years [...] on filedocumented in this encounter Care Teams System Engineer Relationship Specialty Start Date End Date Jun [...] - General 07/23/11 Dot Shultz DO [address] [place] [address] PCP - General 01/24/11 07/22/11 Miguel Ángel Olea MD [address] [facility] [address] [place], [place] [id number] PCP - General FAMILY PRACTICE 07/16/16 documented as of this encounter
--- OUTSIDE RECORDS SUMMARY | 2024-05-29 17:27 | XMS_ITS | Encounter Summary ---
Author Organization [facility] Address [address] [place] [address]. [place], [place] [address] [place] [address] Care Team Providers Care Shoe Lining Fitter Name Role Phone Miguel Ángel Olea MD Primary Care Provider [phone] Encounter Details Date Type Department Care Team (Latest Contact Info) Description 01/04/2018 7:17 PM CDT - 01/04/2018 11:59 PM T Hospital Encounter [facility] [place] [address] Miguel Ángel Olea MD [address] [place] [id number] Discharge Disposition: Home or Self Care (Routine Discharge) Social History Tobacco Use Types Packs/Day Years [...] on file documented as of this encounter Medications at Time of Discharge atorvastatin 10 MG tablet Take 1 tablet by mouth daily. 07/25/2016 butalbital-acetam inophen-caffeine 50-325-40 MG tablet Take 1 tablet by mouth every 4 (four) hours as needed for Pain. cetirizine 10 MG tablet Take 10 mg by mouth daily. topiramate 100 MG tablet Take 1 tablet by mouth 2 (two) times daily. 07/17/2016 atorvastatin 10 MG tablet Take 10 mg by mouth daily. 12/19/2019 docusate sodium (STOOL SOFTENER) 100 MG capsule Take 100 mg by mouth daily. 03/08/2020 topiramate 100 MG tablet Take 100 mg by mouth 2 (two) times daily. 03/08/2020 vitamin D2, ergocalciferol, 17424 UNITS capsule Take 50,000 Units by mouth daily. 03/08/2020 documented as of this encounter Plan of Treatment Not on file documented as of this encounter Procedures Procedure Name Priority Date/Time Associated Diagnosis Comments TSH W/REFLEX Routine 01/04/2018 10:24 AM CDT Encounter for general adult medical examination without abnormal findings COMPREHENSIVE METABOLIC PANEL Routine 01/04/2018 10:24 AM CDT Encounter for general adult medical examination without abnormal findings LIPID PANEL Routine 01/04/2018 10:24 AM CDT Encounter for general adult medical examination without abnormal findings CBC W/DIFF AUTOMATED Routine 01/04/2018 10:24 AM CDT Encounter for general adult medical examination without abnormal findings Pure hypercholesterolemi a Vitamin D deficiency Overweight Headache VITAMIN D, 25 OH Routine 01/04/2018 10:2 4 AM CDT Encounter for general adult medical examination without abnormal findings documented in this encounter Results * VITAMIN D, 25 OH (01/04/2018 10:24 AM CDT) VITAMIN D 25 HYDROXY S/P/B 35 30 - 100 NG/ML 01/04/2018 7:59 PM CDT [facility] Comment: ? INTERPRETATION ? DEFICIENT ??<20 ? INSUFFICIENT 20-29 ?SUFFICIENT 30-100 01/04/2018 10:2 4 AM CDT Miguel Ángel Olea MD LABORATORY Final Result [facility] [address] [place] [address], [place] [phone] * TSH W/REFLEX (01/04/2018 10:24 AM CDT) TSH 0.462 0.358 - 3.74 uIU/ML 01/04/2018 8:03 PM CDT [facility] Comment: HIGH DOSES OF BIOTIN MAY INTERFERE WITH THIS TEST RESULT. CORRELATION TO CLINICAL HISTORY AND PRESENTATION RECOMMENDED. FREE T4 NOT INDICATED 01/04/2018 10:2 4 AM CDT us Miguel Ángel Olea MD LABORATORY Final Result Performing Organization Address City/[facility]/ZIP Co de Phone Number [facility] [address] [place] [address], [place] [phone] * (ABNORMAL) LIPID PANEL (01/04/2018 10:24 AM CDT) CHOLESTEROL 244(H) <200 MG/DL 01/04/2018 8:03 PM CDT [facility] TRIGLYCERIDES 105 <150 MG/DL 01/04/2018 8:03 PM CDT [facility] HDL 46 >40.0 MG/DL 01/04/2018 8:03 PM CDT [facility] LDL (CALCULATED) 177(H) <100 MG/DL 01/04/2018 8:03 PM CDT [facility] NON HDL CHOLESTEROL 198(H) <130 MG/DL 01/04/2018 8:03 PM CDT [facility] CHOL/HDL RATIO 5.3(H) 0.0 - 4.5 01/04/2018 8:03 PM CDT [facility] VLDL CALCULATION 21 5 - 55 MG/DL 01/04/2018 8:03 PM CDT [facility] LIPID INTERPRETATION 01/04/2018 8:03 PM CDT [facility] Comment: NIH CONCENSUS REPORT RECOMMENDATIONS: [...] Miguel Ángel Olea MD LABORATORY Final Result [facility] [address] [place] [address], [place] [phone] * COMPREHENSIVE METABOLIC PANEL (01/04/2018 10:24 AM CDT) [facility] GLUCOSE 92 70 - 99 MG/DL 01/04/2018 8:03 PM CDT [facility] BUN 15 7 - 18 MG/DL 01/04/2018 8:03 PM CDT [facility] CREATININE S/P/B 0.77 0.55 - 1.02 MG/DL 01/04/2018 8:03 PM CDT [facility] SODIUM S/P/B 141 136 - 145 MMOL/L 01/04/2018 8:03 PM CDT [facility] POTASSIUM S/P/B 4.7 3.5 - 5.1 MMOL/L 01/04/2018 8:03 PM CDT [facility] CHLORIDE S/P/B 107 100 - 108 MMOL/L 01/04/2018 8:03 PM CDT [facility] CO2 26.8 21 - 32 MMOL/L 01/04/2018 8:03 PM CDT [facility] CALCIUM S/P/B 8.9 8.5 - 10.1 MG/DL 01/04/2018 8:03 PM CDT [facility] BILIRUBIN TOTAL S/P/B 0.4 0.2 - 1.2 MG/DL 01/04/2018 8:03 PM CDT [facility] TOTAL PROTEIN S/P/B 7.0 6.4 - 8.2 G/DL 01/04/2018 8:03 PM CDT [facility] ALBUMIN S/P/B 3.6 3.4 - 5.0 G/DL 01/04/2018 8:03 PM CDT [facility] AST 17 15 - 37 U/L 01/04/2018 8:03 PM CDT [facility] ALT 43 14 - 55 U/L 01/04/2018 8:03 PM CDT [facility] ALKALINE PHOSPHATASE S/P/B 85 50 - 136 U/L 01/04/2018 8:03 PM CDT [facility] ANION GAP 11.9 8 - 20 MMOL/L 01/04/2018 8:03 PM CDT [facility] BUN CREATININE RATIO 19.5 6 - 26 01/04/2018 8:03 PM CDT [facility] A/G RATIO 1.1 1.0 - 2.0 RATIO 01/04/2018 8:03 PM CDT [facility] EGFR NON-AFR. AMER. >90 >90 ML/MIN/1.7 3 M2 01/04/2018 8:03 PM CDT [facility] EGFR AFR. AMER. >90 >90 ML/MIN/1.7 3 M2 01/04/2018 8:03 PM CDT [facility] Comment: NOTE: eGFR is not calculated for patients <18 years of age. This is an estimated GFR (CKD EPI) and should not be used for calculating drug doses. 01/04/2018 10:2 4 AM CDT us Miguel Ángel Olea MD LABORATORY Final Result [facility] [address] [place] [address], [place] [phone] * (ABNORMAL) CBC W/DIFF AUTOMATED (01/04/2018 10:24 AM CDT) WBC 7.6 4.5 - 11.0 x10'3/uL 01/04/2018 7:36 PM CDT [facility] RBC 4.79 4.20 - 5.40 x10'6/uL 01/04/2018 7:36 PM CDT [facility] HGB 13.5 12.0 - 16.0 G/DL 01/04/2018 7:36 PM CDT [facility] HCT 42.3 38.0 - 48.0 % 01/04/2018 7:36 PM CDT [facility] MCV 88.3 81.0 - 99.0 FL 01/04/2018 7:36 PM CDT [facility] MCH 28.2 27.0 - 31.0 PG 01/04/2018 7:36 PM CDT [facility] MCHC 31.9(L) 32.0 - 36.0 G/DL 01/04/2018 7:36 PM CDT [facility] RDW 12.3 11.5 - 14.5 % 01/04/2018 7:36 PM CDT [facility] PLT 276 130 - 400 x10'3/uL 01/04/2018 7:36 PM CDT [facility] MPV 11.5 9.3 - 12.2 FL 01/04/2018 7:36 PM CDT [facility] DIFFERENTIAL TYPE MANUAL DIFFERENTIAL 01/04/2018 8:00 PM CDT [facility] SEG NEUTROPHILS 48 % 8 8:00 PM CDT [facility] LYMPHOCYTES 38 % 01/04/2018 8:00 PM T [facility] ATYP. LYMPHS 1 % 01/04/2018 8:00 PM CDT [facility] MONOCYTES 5 % 01/04/2018 8:00 PM CDT [facility] EOSINOPHILS 5 % 01/04/2018 8:00 PM CDT [facility] BASOPHILS 3 % 01/04/2018 8:00 PM CDT [facility] ABS. NEUTROPHILS CALCULATED 3.65 1.80 - 7.70 x10'3/uL 01/04/2018 8:00 PM CDT [facility] ABS.LYMPHOCYTES CALCULATED 2.96 1.00 - 4.80 x10'3/uL 01/04/2018 8:00 PM CDT [facility] ABS. MONOCYTES CALCULATED 0.38 0.24 - 0.86 x10'3/uL 01/04/2018 8:00 PM CDT [facility] ABS. EOSINOPHIL CALCULATED 0.38(H) 0.04 - 0.36 x10'3/uL 01/04/2018 8:00 PM CDT [facility] ABS. BASOPHIL CALCULATED 0.23(H) 0.01 - 0.08 x10'3/uL 01/04/2018 8:00 PM CDT [facility] RBC MORPHOLOGY RBC MORPHOLOGY APPEARS NORMAL. SLIDE REVIEWED. 01/04/2018 8:00 PM CDT [facility] PLT EST. ADEQUATE 01/04/2018 8:00 PM CDT [facility] 01/04/2018 10:2 4 AM CDT Miguel Ángel Olea MD LABORATORY Final Result [facility] [address] [place] [address], [place] [phone] documented in this encounter Visit Diagnoses Diagnosis Encounter for general adult medical examination without abnormal findings Unspecified general medical examination Pure hypercholesterolemia Vitamin D deficiency Unspecified vitamin D deficiency Overweight Headache documented in this encounter Care Teams Shoe Lining Fitter Relationship Specialty Start Date End Date Miguel Ángel Olea MD [address] [place] [address] PCP - General FAMILY PRACTICE 07/16/16 documented as of this encounter
--- OUTSIDE RECORDS SUMMARY | 2024-05-29 17:27 | XMS_ITS | Encounter Summary ---
Author Organization [facility] Address [address] [place] [address]. [place], [place] [address] [place] [address] Care Team Providers Care Finishing Manager Name Role Phone Jun Ivey MD Primary Care Provider Jun Long MD Primary Care Provider Jun Long MD Primary Care Provider Jun Long MD Primary Care Provider Jun Long MD Primary Care Provider Jun Long MD Primary Care Provider UnavailMiguel Ángel Garduno MD Primary Care Provider [phone] Encounter Details Date Type Department Care Team (Latest Contact Info) Description 06/19/2015 Abstract [facility] Medical Group Social History Tobacco Use Types Packs/Day Years [...] on filedocumented in this encounter Care Teams Finishing Manager Relationship Specialty Start Date End Date Jun Ivey MD PCP - General 07/06/15 07/15/16 Jun Ivey MD PCP - General 07/02/15 07/05/15 Jun Ivey MD PCP - General 06/29/15 07/01/15 Jun Ivey MD PCP - General 06/25/15 06/28/15 Jun Ivey MD PCP - General 06/22/15 06/24/15 Jun Ivey MD PCP - General 06/18/15 06/21/15 Miguel Ángel Olea MD [address] [address] PCP - General FAMILY PRACTICE 07/16/16 documented as of this encounter
--- OUTSIDE RECORDS SUMMARY | 2024-05-29 17:27 | XMS_ITS | Encounter Summary ---
Author Organization [facility] Address [address] [place] [address]. [place], [place] [address] [place] [address] Care Team Providers Care Residential Supervisor Name Role Phone Jun Ivey MD Primary Care Provider Jun Long MD Primary Care Provider Jun Long MD Primary Care Provider Jun Long MD Primary Care Provider Jun Long MD Primary Care Provider Jun Long MD Primary Care Provider Nav Mohamud Md, MD Primary Care Provider Unavailable Miguel Ángel Olea MD Primary Care Provider [phone] Encounter Details Date Type Department Care Team (Latest Contact Info) Description 12/16/2013 Abstract [facility] Medical Group Social History Tobacco [...] on filedocumented in this encounter Care Teams Residential Supervisor Relationship Specialty Start Date End Date Jun Ivey MD PCP - General 07/06/15 07/15/16 Jun Ivey MD PCP - General 07/02/15 07/05/15 Jun Ivey MD PCP - General 06/29/15 07/01/15 Jun Ivey MD PCP - General 06/25/15 06/28/15 Jun Ivey MD PCP - General 06/22/15 06/24/15 Jun Ivey MD PCP - General 06/18/15 06/21/15 Nav Waddell MD PCP - General 07/23/11 Miguel Ángel Olea MD [address] [address] PCP - General FAMILY PRACTICE 07/16/16 documented as of this encounter
--- OUTSIDE RECORDS SUMMARY | 2024-05-29 17:27 | XMS_ITS | Encounter Summary ---
Author Organization [facility] Address [address] [place] [address]. [place], [place] [address] [place] [address] Care Team Providers Care Bridge Repairer Name Role Phone Jun Ivey MD Primary Care Provider Jun Long MD Primary Care Provider Jun Long MD Primary Care Provider Jun Long MD Primary Care Provider Jun Long MD Primary Care Provider Jun Long MD Primary Care Provider Nav Mohamud Md, MD Primary Care Provider Unavailable Miguel Ángel Olea MD Primary Care Provider [phone] Encounter Details Date Type Department Care Team (Latest Contact Info) Description 07/05/2014 Abstract [facility] Medical [facility] Social History Tobacco Use Types [...] on filedocumented in this encounter Care Teams Bridge Repairer Relationship Specialty Start Date End Date Jun [...] General 07/23/11 Miguel Ángel Olea MD [address] [address] PCP - General FAMILY PRACTICE 07/16/16 documented as of this encounter
--- OUTSIDE RECORDS SUMMARY | 2024-05-29 17:27 | XMS_ITS | Encounter Summary ---
Author Organization [facility] Address [address] [place] [address]. [place], [place] [address] [place] [address] Care Team Providers Care Senior Quality Methods Specialist Name Role Phone Miguel Ángel Olea MD Primary Care Provider [phone] Encounter Details Date Type Department Care Team (Late st Contact Info) Description 10/10/2016 Abstract [facility] Medical [facility] [place] Medicine [place] [address] [facility], [address] [place] [address] Miguel Ángel Olea MD [address] [place] [address] [address] [place] [address] Social History Tobacco Use Types Packs/Day Years Used Date Smoking Tobacco: Never Assessed Comments Unknown Sex and Gender Information Value Date Recorded Sex Assigned at Not on file Legal Sex Female 5:36 PM CDT Gender Identity Not on file Sexual Orientation Not on file documented as of this encounter Last Filed Vital Signs Vital Sign Reading Time Taken Comments Blood Pressure 110/70 10/10/2016 9:51 AM CDT Pulse 90 10/10/2016 9:51 AM CDT Temperature - - Respiratory Rate - - Oxygen Saturation - - Inhaled Oxygen Concentration - - Weight - - Height - - Body Mass Index - - documented in this encounter Progress Notes * Miguel Ángel Olea MD - 10/10/2016 9:30 AM CDT Chief Complaint Follow up on labs and arthritis History of Present Illness HPI Free Text: 36 yo WAF c/o weight increase, joint pains. otherwise doing well, takes meds regularly, no side effects. meds reviewed and discussed in details Review of Systems Constitutional: no fever, not feeling poorly and no headache. ENT: no earache, no nosebleeds and no hearing loss. Cardiovascular: the heart rate was not slow, no chest pain and the heart rate was not fast. Respiratory: shortness of breath, but no wheezing. Gastrointestinal: no abdominal pain and no vomiting. Active Problems 1. Allergic rhinitis (477.9) (J30.9) 2. Headache (784.0) (R51) 3. Hypercholesterolemia (272.0) (E78.00) 4. Knee pain, left (719.46) (M25.562) 5. Low vitamin D level (268.9) (E55.9) Past Medical History 1. History of ACL tear (844.2) (S83.519A) 2. History of Acute lateral meniscal tear (836.1) (S83.289A) 3. History of Puncture wound of thigh, left (890.0) (S71.132A) 4. History of Tear of PCL (posterior cruciate ligament) of knee (844.2) (S83.529A) Surgical History 1. History of Cholecystectomy Laparoscopic ?? dr. seth rg Md 2. History of Decompress Fasciotomy Mult Compartments Of Thigh, Debridemen ?? rashida rodrigesarb left thigh debrided and surgerical treated by Dr. Seth Rg General Surgeon. 3. History of Knee Surgery Left ?? LEFT KNEE MENISCAL TEAR, ACL/PCL TEAR, DONE AT [facility] IN [place] Family History Father 1. Family history of diabetes mellitus (V18.0) (Z83.3) Paternal Grandmother 2. Family history of diabetes mellitus (V18.0) (Z83.3) 3. Family history of lung cancer (V16.1) (Z80.1) Paternal Grandfather 4. Family history of diabetes mellitus (V18.0) (Z83.3) 5. Family history of lung cancer (V16.1) (Z80.1) Aunt 6. Family history of Breast cancer, female 7. Family history of Ovarian cancer Paternal Uncle 8. Family history of diabetes mellitus (V18.0) (Z83.3) Social History ?? Current every day smoker (305.1) (F17.200) ?? 5-10 cigg/day for 17 years (began 1997) ?? Currently working ? Rarely consumes alcohol (V49.89) (Z78.9) Current Meds 1. Atorvastatin Calcium 10 MG Oral Tablet; TAKE 1 TABLET BY MOUTH EVERY DAY; Therapy: 25Jul2016 to (Last Rx:25Jul2016) Requested for: 25Jul2016 Ordered 2. Jazawzjvaa-PDRK-Gfbxkyyx 50-325-40 MG Oral Capsule; TAKE 1 TO 2 CAPSULES EVERY 4 TO 6 HOURS NEEDED FOR PAIN; Therapy: 16Jul2016 to (Evaluate:20Jul2016); Last Rx:16Jul2016 Ordered 3. Cetirizine HCl - 10 MG Oral Tablet; TAKE ONE TABLET BY MOUTH ONCE DAILY DIRECTED; Therapy: 01Sep2016 to (Evaluate:[id number]) Requested for: 35Frw8105; Last Rx:[id number] Ordered 4. Ergocalciferol 98532 UNIT Oral Capsule; TAKE 1 CAPSULE WEEKLY; Therapy: 25Jul2016 to (Last Rx:25Jul2016) Requested for: 25Jul2016 Ordered 5. Topiramate 50 MG Oral Tablet; TAKE 1 TABLET BY TWICE DAILY; Therapy: 17Jul2016 to (Last Rx:17Jul2016) Requested for: 17Jul2016 Ordered 6. Transderm-Scop (1.5 MG) 1 MG/3DAYS Transdermal Patch 72 Hour; APPLY 1 PATCH EVERY 3 DAYS; Therapy: 16Jul2016 to (Evaluate:[id number]); Last Rx:16Jul2016 Ordered 7. ZyrTEC Allergy 10 MG Oral Tablet; TAKE 1 TABLET DAILY DIRECTED; Therapy: 16Jul2016 to (Evaluate:[id number]) Requested for: 79Sil8809; Last Rx:[id number] Ordered Allergies 1. No Known Drug Allergies Vitals Recorded: 10Oct2016 09:51AM Heart Rate 90 Systolic 110 Diastolic 70 O2 Saturation 97 Physical Exam Constitutional General appearance: No acute distress, well appearing and well nourished. Eyes Conjunctiva and lids: No swelling, erythema or discharge. Pupils and irises: Equal, round and reactive to light. Ears, Nose, Mouth, and Throat External inspection of ears and nose: Normal. Oropharynx: Normal with no erythema, edema, exudate or lesions. Pulmonary Respiratory effort: No increased work of breathing or signs of respiratory distress. Auscultation of lungs: Clear to auscultation. Cardiovascular Auscultation of heart: Normal rate and rhythm, normal S1 and S2, without murmurs. Assessment 1. Allergic rhinitis (477.9) (J30.9) 2. Headache (784.0) (R51) 3. Knee pain, left (719.46) (M25.562) Plan Headache 1. Topiramate 50 MG Oral Tablet; TAKE 1 TABLET BY TWICE DAILY Rx By: Miguel Ángel Olea; Dispense: 0 Days ; #:1 X 60 Tablet Bottle; Refill: 6; For: Headache; MARY = N;Sent To: [facility] Knee pain, left 2. Phentermine HCl - 15 MG Oral Capsule; TAKE 1 CAPSULE EVERY MORNING BEFORE BREAKFAST Rx By: Miguel Ángel Olea; Dispense: 30 Days ; #:30 Capsule; Refill: 0; For: Knee pain, left; MARY = N; Print Rx 3. PredniSONE 10 MG Oral Tablet; TAKE 6 TABLETS TODAY, THEN DECREASE BY 1 TABLET EACH DAY UNTIL GONE Rx By: Miguel Ángel Olea; Dispense: 0 Days ; #:21 Tablet; Refill: 0; For: Knee pain, left; MARY = N; Sent To: [facility] Discussion/Summary A&P 1- AR: Stable. continue current care 2- Headache: Stable. continue current care 3- Over weight: Stable. continue current care 4- Knee pain: Stable. continue current care f/u prn Signatures Electronically signed by : Miguel Ángel Olea M.D.; Oct 10 2016 10:00AM MDM SR (Author) documented in this encounter Plan of Treatment Not on file documented as of this encounter Visit Diagnoses Not on filedocumented in this encounter Care Teams Senior Quality Methods Specialist Relationship Specialty Start Date End Date Miguel Ángel Olea MD [address] [address] PCP - General FAMILY PRACTICE 07/16/16 documented as of this encounter
--- OUTSIDE RECORDS SUMMARY | 2024-05-29 17:27 | XMS_ITS | Encounter Summary ---
Author Organization [facility] Address [address] [place] [address]. [place] [id number] [place] [address] Care Team Providers Care Channel Man Name Role Phone Jun Ivey MD Primary Care Provider Miguel Ángel Blakely MD Primary Care Provider [phone] Encounter Details Date Type Department Care Team (Latest Contact Info) Description 07/09/2015 Abstract [facility] Medical [facility] Social History Tobacco Use Types Packs/Day Years Used Date Smoking Tobacco: Never Assessed Comments Unknown Sex and Gender Information Value Date Recorded Sex Assigned at Not on file Legal Sex Female 5:36 PM CDT Gender Identity Not on file Sexual Orientation Not on file documented as of this encounter Progress Notes * Generic Conversion MD Bairon - 07/09/2015 1:13 PM CST Message Recorded as Task Date: 07/05/2015 08:10 PM, Created By: Jun Ivey Task Name: Call Patient with results Assigned To: [facility] - NURSES Regarding Patient: Renata Lei, Status: Active Comment: Jun Ivey - 05 Jul 2015 8:10 PM Patient CALL HIGH CHOLESTEROL. OTHERWISE NORMAL NO DIABETES. PROVIDE DIETARY HANDOUTS. RECHECK IN 6-12 MONTHS, Nitza Yuen - 06 Jul 2015 4:21 PM TASK REASSIGNED: Previously Assigned To Jun Ievy Message: Spoke with Renata and advised of lab results and all of PCP comments as stated in task. Pt verbalized understanding and in agreement with incorporating low chol/low fat diet into her lifestyleand repeating lipids in 6-12 months. (Low chol dietary guidelines, lab order mailed to pt.) depRN Signatures Electronically signed by : Nitza Barrera R.N.; Jul 09 2015 1:14PM CAMBERING MACHINE OPERATOR (Author) documented in this encounter Plan of Treatment Not on file documented as of this encounter Visit Diagnoses Not on filedocumented in this encounter Care Teams Channel Man Relationship Specialty Start Date End Date Jun Ivey MD PCP - General 07/06/15 07/15/16 Miguel Ángel Olea MD [address] [address] PCP - General FAMILY PRACTICE 07/16/16 documented as of this encounter
--- OUTSIDE RECORDS SUMMARY | 2024-05-29 17:27 | XMS_ITS | Encounter Summary ---
Author Organization [facility] Address [address] [place] [address]. [place], [place] [address] [place] [address] Care Team Providers Care Supervisor Aircraft Maintenance Name Role Phone Jun Ivey MD Primary Care Provider Jun Long MD Primary Care Provider Jun Long MD Primary Care Provider Jun Long MD Primary Care Provider Jun Long MD Primary Care Provider Jun Long MD Primary Care Provider Glenroy yap Md Generic Calvin VAUGHN Primary Care Provider Unavailable Dot Shultz DO Primary Care Provider [phone] Miguel Ángel Olea MD Primary Care Provider [phone] Encounter Details Date Type Department Care Team (Late st Contact Info) Description 09/07/1998 Abstract [place] [address] Md Generic MD Calvin Social History Tobacco [...] on filedocumented in this encounter Care Teams Supervisor Aircraft Maintenance Relationship Specialty Start Date End Date Jun [...] General 07/23/11 Dot Shultz DO [address] [address] PCP - General 01/24/11 07/22/11 Miguel Ángel Olea MD [address] [facility] [address] [place] [address] PCP - General FAMILY PRACTICE 07/16/16 documented as of this encounter
--- OUTSIDE RECORDS SUMMARY | 2024-05-29 17:27 | XMS_ITS | Encounter Summary ---
Author Organization [facility] Address [address] [place] [address]. [place], [place] [id number] [place] [id number] Care Team Providers Care Crystal Grower Name Role Phone Miguel Ángel Olea MD Primary Care Provider [phone] Reason for Visit * Auth/Cert Specialty Diagnoses / Procedures Referred By Contac t Referred To Contact Diagnoses BRIGHT RED BLOOD PER RECTUM, BLOOD IN STOOL Procedures COLONOSCOPY Referral ID Status Reason Start Date Expiration Date Visits Re quested Visits Authorized [id number] 1 1 Encounter Details Date Type Department Care Team (Late st Contact Info) Description 04/29/2017 10:00 AM MECHANICAL FACILITIES TECHNICIAN - 04/29/2017 11:14 AM MECHANICAL FACILITIES TECHNICIAN Surgery [facility] [address] Pancho Jackson MD [address] [facility] [address] [place] [address] COLONOSCOPY Surgery Details Date/Time Status Location OR Service Patient Class Case Class Case Type Trauma Case? 04/29/2017 10:00 AM Posted [facility] 1 Gastroenterology Short Stay/Outp atient Surgery E - Elective No Panel 1 Procedure LRB Anes Op Region Wound Class Comments COLONOSCOPY N/A General Clean Contaminated Surgeon Surgeon Role Service Panel Pancho Jackson MD Primary Gastroenterology 1 Case Notes JAKE BY FAX 04-21-17 ML documented in this encounter Social History Tobacco Use Types Packs/Day Years [...] Sign Reading Time Taken Comments Blood Pressure 103/72 04/29/2017 10:50 AM MECHANICAL FACILITIES TECHNICIAN Pulse 66 04/29/2017 10:50 AM MECHANICAL FACILITIES TECHNICIAN Temperature 37.1 ??C (98.7 ??F) 04/29/2017 9:19 AM CS T Respiratory Rate 19 04/29/2017 10:50 AM MECHANICAL FACILITIES TECHNICIAN Oxygen Saturation 98% 04/29/2017 10:50 AM MECHANICAL FACILITIES TECHNICIAN Inhaled Oxygen Concentration - - Weight 97.5 kg (215 lb) 04/21/2017 12:01 AM MECHANICAL FACILITIES TECHNICIAN Height 162.6 cm (5' 4 ) 04/21/2017 12:01 AM MECHANICAL FACILITIES TECHNICIAN Body Mass Index 36.9 04/21/2017 12:01 AM MECHANICAL FACILITIES TECHNICIAN documented in this encounter Discharge Instructions * Discharge Instructions* Pancho Jackson MD - 04/29/2017 10:25 AM MECHANICAL FACILITIES TECHNICIAN Images from the original note were not included. ACTIVITY ?? Limit your activity for the remainder of the day. ?? You should not drive or operate any equipment on the day of your procedure. ?? You should not drink alcoholic beverages until the day after your procedure. ?? Do not smoke until you are fully alert. ?? This may be as much as 6 hours after the procedure is over. ?? Do not make any important decisions until the following day. ?? Notify your physician if you have any questions concerning your instructions. DIET: You may resume oral intake upon dismissal unless otherwise instructed. For the rest of the day you should take only liquids or a light meal. Unless otherwise instructed, you can resume a regular dietthe day after the procedure if you are feeling well and have no abdominal symptoms related to the procedure. NOTIFY YOUR PHYSICIAN FOR ANY OF THE FOLLOWING: ?? Severe abdominal pain or tenderness. ?? Chest pain. ?? Rectal bleeding, more than a few spots of blood on the toilet tissue or in a bowel movement. ?? Chills or fever greater than 100 degrees F. ?? Nausea or vomiting. ?? If you experience any symptoms that concern you, contact your physician. ?? Please go to the nearest Emergency Room if unable to contact your physician. Colonoscopy Discharge Instructions About this topic Colonoscopy is done so your doctor can see the inside of your large intestines, also called your colon, and your rectum. It uses a lighted tube called a scope, which has a tiny camera that can be moved through the large intestine. This may be done to: ?? Screen for colon cancer or polyps ?? Look for the source of rectal bleeding ?? Find the cause of changes in your bowel movement ?? Find the cause of belly or rectal pain ?? Check results from other tests ?? Check your response to treatment for other diseases What care is needed at home? ?? Ask your doctor what you need to do when you go home. Make sure you ask questions if you do not understand what the doctor says. This way you will know what you need to do. ?? Rest. Do not drive the rest of the day. Do not sign any important papers or make any important decisions for the next 24 hours. ?? You may feel groggy. Take extra care when moving about. ?? You may have gas or mild cramping. This is normal. ?? A small amount of bleeding may happen during the first few days after your procedure. ?? Start back on your normal diet unless you need some changes in your diet. What follow-up care is needed? ?? Your doctor will talk to you about your test results. Your doctor may ask you to make visits to the office to check on your progress. Be sure to keep these visits. ?? Ask your doctor when you need to have another colonoscopy. The amount of time between tests is based on what was found during this test. People with no polyps may be able to wait 10 years to have another colonoscopy. Other people may need to have this test repeated in 1 year because of the kind of polyps that were found in their colon. Ask your doctor when you need to come back. What drugs may be needed? Ask your doctor what drugs you will need to take. Take your drugs as told by your doctor. Will physical activity be limited? Physical activities may be limited for a short time. Rest after the procedure. You may go back to your normal activities within a day or so. What changes to diet are needed? ?? Drink 6 to 8 glasses of water each day. ?? Eat food rich in fiber like fresh fruits and vegetables. What problems could happen? ?? Tear inside your colon ?? Bleeding can happen up to a few days afterwards When do I need to call the doctor? ?? Fever of 100.4??F (38??C) or higher, chills ?? Bleeding during bowel movements (1 teaspoon (5 mL) or more) or maroon stool ?? Throwing up more than 3 times in the next 48 hours ?? Feeling dizzy ?? Feeling weak ?? Belly pain that is getting worse ?? Not able to have a bowel movement for more than 2 days ?? Hard swollen belly Teach Back: Helping You Understand The Teach Back Method helps you understand the information we are giving you. The idea is simple. After talking with the staff, tell them in your own words what you were just told. This helps to makesure the staff has covered each thing clearly. It also helps to explain things that may have been abit confusing. Before going home, make sure you are able to do these: ?? I can tell you about my procedure. ?? I can tell you what signs are normal after my procedure. ?? I can tell you what I will do if I throw up more than 3 times in the next 48 hours or I have more belly pain. Where can I learn more? [employer] http://www.gastro.org/info_for_patients/kfndbwrjqaq-854-duoa-mq-k-zaostvywsxe [employer] Gastrointestinal Endoscopy http://www.asge.org/patients/patients.aspx?ce=188 National Digestive Diseases Information Clearinghouse http://digestive.niddk.nih.gov/ddiseases/pubs/colonoscopy/ Last Reviewed Date 2016-06-16 Consumer Information Use and Disclaimer This information is not specific medical advice and does not replace information you receive from your health care provider. This is only a brief summary of general information. It does NOT include all information about conditions, illnesses, injuries, tests, procedures, treatments, therapies, discharge instructions or life-style choices that may apply to you. You must talk with your health care provider for complete information about your health and treatment options. This information should not be used to decide whether or not to accept your health care provider???s advice, instructions or recommendations. Only your health care provider has the knowledge and training to provide advice that is right for you. Copyright Copyright ?? 2017 [employer], Compendium. and its affiliates and/or licensors. All rights reserved. ANICAL FACILITIES TECHNICIAN documented in this encounter Medications at Time of Discharge [...] (two) times daily. 03/08/2020 vitamin D2, ergocalciferol, 10451 UNITS capsule Take 50,000 Units by mouth daily. 03/08/2020 documented as of this encounter H&P Notes * Pancho Jackson MD - 04/29/2017 9:47 AM CST HISTORY AND PHYSICAL INTERVAL NOTE: I have reviewed Renata Lei History & Physical which was performed within the past 30 days. After examining Renata Kristie Quique, no change has occurred in the patient's condition since the H&P was completed. Informed Consent Discussion: Risks, benefits, alternatives as well as the consequences of not performing the surgery/procedure were discussed with the patient and/or family/personal accounts receivable representative. Questions were answered and the patient/family/personal accounts receivable representative verbalized understanding and desires to proceed. Referred By / Reason rectal bleeding Chief Complaint blood per rectum History of Present Illness 37 yo female with h/o HLD migraine on topamax, who was referred to GI clinic for rectal bleeding. Started in September initially as rectal pain that was followed by rectal bleeding. The bleeding is occurring with every bowel movement, the stool color is brown, bleeding is during the BM described as freshblood and sometimes dripping of blood and clotting at the end of having a BM. She is taking a stool softener every day. which is helping with making her stool soft. She started feeling a small bulge in her anal area last month but overall it is not very painful and she feels that the pain is internal. No nausea, vomiting, dysphagia, abdominal pain, no heart burn or acid reflux. No constipation ordiarrhea, no melena. No weight loss, + prior abdominal surgeries, s/p CCY. + colon cancer uncle with colon cancer and had part of his colon resected in his 70's. No prior colonoscopies. Review of Systems Constitutional: Negative for fevers, chills, fatigue and malaise Eyes: negative for visual disturbance ENT: negative for tinnitus, nasal congestion, sore mouth, sore throat, hoarseness and voice change Respiratory: negative for cough, sputum, hemoptysis, dyspnea Cardiovascular: Negative chest pain, sob. Gastrointestinal:Denies abdominal pain, distension, nausea, vomiting, hematemesis, melena, hematochezia Genitourinary:negative for dysuria, nocturia, urinary incontinence, hematuria Hematologic/lymphatic: negative for easy bruising, bleeding Musculoskeletal: negative for myalgias, arthralgias and muscle weakness Neurological: negative for headaches, dizziness, vertigo and seizures Active Problems 1. Allergic rhinitis (477.9) (J30.9) [...] of Puncture wound of thigh, left (890.0) (S71.470A) 6. History of Tear of PCL (posterior cruciate ligament) of knee (844.2) (S83.502Z) Surgical History 1. History of Cholecystectomy Laparoscopic ?? dr. seth rg Md 2. History of Decompress Fasciotomy Mult Compartments Of Thigh, Debridemen ?? puncure rebarb left thigh debrided and surgerical treated by Dr. Seth Rg General Surgeon. 3. History of Knee Surgery Left ?? LEFT KNEE MENISCAL TEAR, ACL/PCL TEAR, DONE AT [facility] IN [place] Family History Mother 1. Family history of fibromyalgia (V17.89) (Z82.69) Father 2. Family history of deep venous thrombosis (V17.49) (Z82.49) 3. Family history of diabetes mellitus (V18.0) (Z83.3) Paternal Grandmother 4. Family history of diabetes mellitus (V18.0) (Z83.3) 5. Family history of lung cancer (V16.1) (Z80.1) ?? grandmother - smoker grandfather - non smoker. 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 Paternal Grandfather 6. Family history of diabetes mellitus (V18.0) (Z83.3) 7. Family history of lung cancer (V16.1) (Z80.1) ?? grandmother - smoker grandfather - non smoker. 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 Aunt 8. Family history of [...] to (Last Rx:25Jul2016) Requested for: 25Jul2016 Ordered Rx By: Miguel Ángel Olea; Dispense: 0 Days ; #:1 X 90 Tablet Bottle; Refill: 2;For: Hypercholesterolemia; MARY = N; Verified Transmission to [facility]; Last Updated By: Aptidata; 07/25/2016 9:00:35 AM 2. Cetirizine HCl - 10 MG Oral Tablet; TAKE ONE TABLET BY MOUTH ONCE DAILY DIRECTED; Therapy: [id number] to (Evaluate:[id number]) Requested for: 75Agc2760; Last Rx:[id number] Ordered Rx By: Miguel Ángel Olea; Dispense: 30 Days ; #:30 TAB; Refill: 2;For: Allergic rhinitis; MARY = N; Verified Transmission to [facility]; Last Updated By: Aptidata; 01/27/2017 8:00:08 AM 3. Ergocalciferol 73602 UNIT CAPS; TAKE 1 CAPSULE WEEKLY; Therapy: 25Jul2016 to (Last Rx:25Jul2016) Requested for: 25Jul2016 Ordered Rx By: Miguel Ángel Olea; Dispense: 0 Days ; #:12 Capsule; Refill: 3;For: Low vitamin D level; MARY = N;Verified Transmission to [facility]; Last Updated By: Aptidata; 07/25/2016 9:00:35 AM 4. Stool Softener CAPS; TAKE CAPSULE PRN; Therapy: (Recorded:[id number]) to Recorded Dispense: 0 Days ; #: Sufficient Capsule; Refill: 0; MARY = N; Record; Last Updated By: Yulia Marin; 04/17/2017 8:46:45 AM 5. Topiramate 100 MG Oral Tablet; TAKE 1 TABLET TWICE DAILY; Therapy: 17Jul2016 to (Evaluate:12Nov2017) Requested for: 28Gjx2451; Last Rx:[id number] Ordered Rx By: Miguel Ángel Olea; Dispense: 30 Days ; #:60 Tablet; Refill: 11;For: Headache; MARY = N; Sent To: [facility] Allergies 1. No Known Drug Allergies Recorded By: Amish Connor; 06/14/2015 1:55:45 PM Vitals Recorded: 17Apr2017 08:46AM Heart Rate 72 Systolic 126 Diastolic 82 O2 Saturation 98 Height 5 ft 4 in Weight 216 lb BMI Calculated 37.08 BSA Calculated 2.02 Physical Exam General: appearance: normal, alert, no distress, appears stated age HEENT: conjunctivae/corneas clear, anicteric sclerae, moist mucosa Lungs: clear to auscultation bilaterally, no added sounds Heart: RRR, normal S1 and S2, no loud murmur Abdomen: soft, obese, no masses palpable, non-tender, non-distended, no hepatosplenomegaly, normoactive bowel sounds. Extremities: no edema Skin: No rashes or lesions, no jaundice Neuro: Appropriate, oriented x 3 Results/Data LC-CBC/Diff Ambiguous Default [id number] 17Jul2016 09:38AM Lefty Anaedson Test Name Result Flag Reference WBC 9.0 x10E3/uL 3.4-10.8 RBC 5.03 x10E6/uL 3.77-5.28 Hemoglobin 14.3 g/dL 11.1-15.9 Hematocrit 42.2 % 34.0-46.6 MCV 84 fL 79-97 MCH 28.4 pg 26.6-33.0 MCHC 33.9 g/dL 31.5-35.7 RDW 13.3 % 12.3-15.4 Platelets 313 x10E3/uL 150-379 Neutrophils 58 % Lymphs 31 % Monocytes 7 % Eos 4 % Basos 0 % Immature Cells Neutrophils (Absolute) 5.3 x10E3/uL 1.4-7.0 Lymphs (Absolute) 2.8 x10E3/uL 0.7-3.1 Monocytes(Absolute) 0.6 x10E3/uL 0.1-0.9 Eos (Absolute) 0.3 x10E3/uL 0.0-0.4 Baso (Absolute) 0.0 x10E3/uL 0.0-0.2 Immature Granulocytes 0 % Immature Grans (Abs) 0.0 x10E3/uL 0.0-0.1 NRBC Hematology Comments: A hand-written panel/profile was received from your office. In accordance with the [facility] Ambiguous Test Code Policy dated November 2002, we have assigned CBC with Differential/Platelet, Test Code #295589 to this request. If this is not the testing you wished to receive on this specimen, please contact the [facility] Client Inquiry/ Technical Services Department to clarify the test order. We appreciate your business. LC-Comp. Metabolic Panel ( CMP ) [id number] 09:38AM Miguel Ángel Olea Test Name Result Flag Reference Glucose, Serum 94 mg/dL 65-99 BUN 9 mg/dL 6-20 Creatinine, Serum 0.70 mg/dL 0.57-1.00 eGFR If NonAfricn Am 113 mL/min/1.73 >59 eGFR If Africn Am 130 mL/min/1.73 >59 BUN/Creatinine Ratio 13 8-20 Sodium, Serum 139 mmol/L 134-144 Potassium, Serum 4.8 mmol/L 3.5-5.2 Chloride, Serum 101 mmol/L 96-106 Carbon Dioxide, Total 21 mmol/L 18-29 Calcium, Serum 9.7 mg/dL 8.7-10.2 Protein, Total, Serum 7.0 g/dL 6.0-8.5 Albumin, Serum 4.1 g/dL 3.5-5.5 Globulin, Total 2.9 g/dL 1.5-4.5 A/G Ratio 1.4 1.1-2.5 Effective July 28, 2016 the reference interval for A/G Ratio will be changing to: Age Male Female 0 - 7 days 1.1 - 2.3 1.1 - 2.3 8 - 30 days 1.2 - 2.8 1.2 - 2.8 1 - 6 months 1.3 - 3.6 1.3 - 3.6 7 months - 5 years 1.5 - 2.6 1.5 - 2.6 > 5 years 1.2 - 2.2 1.2 - 2.2 Bilirubin, Total 0.4 mg/dL 0.0-1.2 Alkaline Phosphatase, S 83 IU/L 39-117 AST (SGOT) 17 IU/L 0-40 ALT (SGPT) 25 IU/L 0-32 Assessment 1. Hemorrhoids (455.6) (K64.9) 2. Blood in stool (578.1) (K92.1) 3. Bright red blood per rectum (569.3) (K62.5) 1. Rectal bleeding, continuous with every BM, suspect lower GI bleed and likely hemorrhoidal however given the persistence despite softening the stool we need to exclude any luminal colonic/rectal etiologies and colonoscopy (diagnostic) is recommended. In the meantime she will continue a good bowelregimen, add hemorrhoidal suppo BID continue topical Rx. Avoid straining, constipation... 2. Uncle with colon cancer at a later age- this does not necessarily increase her risk for colon cancer but this test will serve as a screening tool too Discussion/Summary - Schedule colonoscopy - Continue stool softeners - Add hemorrhoidal suppo as the hydrocortisone suppo was declined by her insurance - Split prep GoLYTELY - All questions answered - More recommendations to follow endoscopic evaluation - RTC after scope Patient presented with risks (can include but are not limited to: discomfort, missing lesions, allergic or adverse reaction to the sedative, perforation of the bowel which may require hospitalizationand surgery, bleeding, infection, aspiration ), benefits, and alternatives of the procedure(s) and they are agreeable to proceed as planned. Signatures Electronically signed by : Pancho Jackson MD; Apr 17 2017 9:37AM MECHANICAL FACILITIES TECHNICIAN (Author) ANICAL FACILITIES TECHNICIAN documented in this encounter OR Notes * Op Note - Pancho Jackson MD - 04/29/2017 10:25 AM CST Colonoscopy Report Provider(s): Pancho Jackson MD Procedure: Colonoscopy Medications: Monitored Anesthesia Care Patient Profile: No prior colonoscopy. Description of Procedure: After I obtained informed consent, the scope was passed under direct vision. Throughout the procedure, the patient's blood pressure, pulse, and oxygen saturations were monitored continuously. The colonoscope was introduced through the anus and advanced to the cecum, identif ied by appendiceal orifice and ileocecal valve. The colonoscopy was performed without difficulty. The patient tolerated the procedure well. The quality of the bowel preparation was poor. Findings: The perianal and digital rectal examinations showed nonbleeding external hemorrhoids. Poor prep with scattered semisolid stool coating the whole colon despite aggressive irrigation the prep remained poor. The examined and visualized mucosa appeared normal. No evidence or stigmata of GI bleeding. Non-bleeding medium-sized external hemorrhoids were found during retroflexion. The exam was otherwise without abnormality. Estimated Blood Loss: Estimated blood loss was minimal. Complications: No immediate complications. Impression: -Medium sized external hemorrhoids -Poor preparation of the colon -The visualized colonic mucosa appeared normal. Recommendation: - Discharge patient to home (with escort). - Resume regular diet today. -Avoid constipation -Hemorrhoidal care with Preparation H twice daily -High-fiber diet -If bleeding recurs patient will need a repeat colonoscopy with 2 day prep - Return to referring physician as previously scheduled. -Follow-up in clinic as needed ANICAL FACILITIES TECHNICIAN documented in this encounter Plan of Treatment Not on file documented as of this encounter Procedures Procedure Name Priority Date/Time Associated Diagnosis Comments COLONOSCOPY 04/29/2017 9:43 AM MECHANICAL FACILITIES TECHNICIAN BRIGHT RED BLOOD PER RECTUM, BLOOD IN STOOL Case Notes JAKE BY FAX 12-5-17 ML documented in this encounter Visit Diagnoses Not on filedocumented in this encounter Administered Medications Inactive Administered Medications - up to 3 most recent administrations Medication Order MAR Action Action Date Dose Rate Site lactated ringers infusion at 10 mL/hr, Intravenous, Continuous, Starting on Thu04/29/17 at 1000, Until Thu04/29/17 at 1316, Infuse at TKO rate, Pre-Op New Bag 04/29/2017 10:01 AM MECHANICAL FACILITIES TECHNICIAN documented in this encounter Active and Recently Administered Medications Times are shown in MECHANICAL FACILITIES TECHNICIAN. Continuous Medication Order 04/27/2017 04/28/2017 04/29/2017 lactated ringers infusion at 10 mL/hr, Intravenous, Continuous, Starting on Thu04/29/17 at 1000, Until Thu04/29/17 at 1316, Infuse at TKO rate, Pre-Op 1001 (New Bag - Prov ider: Antonio Braun CRNA)1023 (Anesthesia Volume Adjustment - Provider: Antonio Braun CRNA) documented in this encounter Care Teams Crystal Grower Relationship Specialty Start Date End Date Miguel Ángel Olea MD [address] [address] PCP - General FAMILY PRACTICE 07/16/16 documented as of this encounter
--- OUTSIDE RECORDS SUMMARY | 2024-05-29 17:27 | XMS_ITS | Encounter Summary ---
Author Organization [facility] Address [address] [place] [address]. [place], [place] [address] [place] [address] Care Team Providers Care Vest Tailor Name Role Phone Jun Ivey MD Primary Care Provider Jun Long MD Primary Care Provider Miguel Ángel Blakely MD Primary Care Provider [phone] Encounter Details Date Type Department Care Team (Latest Contact Info) Description 07/05/2015 Abstract [facility] Medical [facility] Social History Tobacco Use Types Packs/Day Years Used Date Smoking Tobacco: Never Assessed Comments Unknown Sex and Gender Information Value Date Recorded Sex Assigned at Not on file Legal Sex Female 5:36 PM CDT Gender Identity Not on file Sexual Orientation Not on file documented as of this encounter Progress Notes * Generic Conversion MD Bairon - 07/05/2015 8:10 PM CST Verified Results Lipid Profile [id number] 09:52AM Jun Ivey Test Name Result Flag Reference Cholesterol 226 mg/dL H <200 NOTE: Acetaminophen, N Acetyl p benzoquinone imine (NAPQI), N acetylcysteine (NAC), Metamizole, 4 Aminoantipyrine (4 AAP) and 4 Methylamino antipyrine (4 MAP) at high concentrations can cause falsely low results on Lactate, Uric Acid, Cholesterol, Triglyceride, HDL, and Direct LDL. Triglycerides 115 mg/dL <150 HDL Cholesterol 39 mg/dL L >59 LDL Cholesterol, Calculated 164 mg/dL H <100 Non HDL, Calc 187 mg/dL H <130 NOTE: WHEN THE TRIGLYCERIDES ARE >200 mg/dL, NON HDL C IS A SECONDARY TARGET OF THERAPY, WITH A GOAL 30 mg/dL HIGHER THAN THE IDENTIFIED LDL C GOAL. Cholesterol/HDL Ratio 5.8 H 0.0-4.5 VLDL Cholesterol 23 mg/dL 5-55 Lipid Profile Comment 1 (Report) NIH CONCENSUS REPORT RECOMMENDATIONS: ADULT CHILD LOW RISK: CHOLESTEROL <200 <170 TRIGLYCERIDE <150 --- HDL >=60 --- LDL <100 <110 BORDERLINE: CHOLESTEROL 200-239 170-199 TRIGLYCERIDE 150-199 --- HDL 40-59 --- LDL 100-159 110-129 HIGH RISK: CHOLESTEROL >=240 >=200 TRIGLYCERIDE >=200 --- HDL <40 --- LDL >=160 >=130 ALT ( SGPT ) 22Jun2015 09:52AM Jun Ivey Test Name Result Flag Reference ALT/GPT 26 IU/L 0-33 AST ( SGOT ) 22Jun2015 09:52AM Jun Ivey Test Name Result Flag Reference AST/GOT 13 IU/L 0-32 Basic Metabolic Prof ( BMP ) 22Jun2015 09:52MILLICENT Jun Ivey Test Name Result Flag Reference Glucose 89 mg/dL 70-99 Blood Urea Nitrogen (BUN) 12 mg/dL 8-23 Creatinine 0.63 mg/dL 0.60-1.10 Sodium (Na) 139 mmol/L 136-145 Potassium (K) 4.3 mmol/L 3.5-5.1 Chloride (Cl) 102 mmol/L 98-107 Carbon Dioxide (CO2) 25 mmol/L 22-29 Calcium 9.5 mg/dL 8.6-10.2 Anion Gap 16 8-20 Glomerular Filt Rate Calc >60 mL/min/1.73m'2 >60 Glomerular Filt Rate (AA) Calc >60 >60 NOTE: eGFR is not calculated for patients <18 years of age. This is an estimated GFR (CKD EPI) and should not be used for calculating drug doses. mL/min/1.73m'2 Hemoglobin A1C ( HA1C ) [id number] 09:52MILLICENT Jun Ivey Test Name Result Flag Reference Hemoglobin A1c 5.0 % 4.8-5.6 ADA GUIDELINES 2010 5.7 TO 6.4% INCREASED RISK OF DIABETES > OR = 6.5% CONSISTENT WITH DIABETES Estimated Average Glucose 97 mg/dL Signatures Electronically signed by : Jun Ivey M.D.; Jul 05 2015 8:12PM CLINICAL APPLICATION SPECIALIST (Author) documented in this encounter Plan of Treatment Not on file documented as of this encounter Visit Diagnoses Not on filedocumented in this encounter Care Teams Vest Tailor Relationship Specialty Start Date End Date Jun Ivey MD PCP - General 07/06/15 07/15/16 Jun Ivey MD PCP - General 07/02/15 07/05/15 Miguel Ángel Olea MD [address] [address] PCP - General FAMILY PRACTICE 07/16/16 documented as of this encounter
--- OUTSIDE RECORDS SUMMARY | 2024-05-29 17:27 | XMS_ITS | Encounter Summary ---
Author Organization [facility] Address [address] [place] [address]. [place] [address] [place] [address] Care Team Providers Care Velocity Shooter Name Role Phone Miguel Ángel Olea MD Primary Care Provider [phone] Encounter Details Date Type Department Care Team (Latest Contact Info) Description 07/17/2016 Abstract [facility] Medical [facility] Miguel Ángel Olea MD [address] [place] [address] Social History Tobacco Use Types Packs/Day Years [...] Procedure Name Priority Date/Time Associated Diagnosis Comments VITAMIN B12 / FOLATE Routine 07/17/2016 9:38 AM POLICY OFFICER HEMOGLOBIN, GLYCOSYLATED Routine 017 9:38 AM POLICY OFFICER TRIIODOTHYRONINE TOTAL , TT-3 Routine 07/17/2016 9:38 AM POLICY OFFICER T4 AND TSH Routine 07/17/2016 9:38 AM POLICY OFFICER COMPREHENSIVE METABOLIC PANEL Routine 07/17/2016 9:38 AM POLICY OFFICER COMPREHENSIVE METABOLIC PANEL Routine 07/17/2016 9:38 AM POLICY OFFICER LIPID PANEL Routine 07/17/2016 9:38 AM POLICY OFFICER LIPID PANEL Routine 07/17/2016 9:38 AM POLICY OFFICER CBC W/DIFF AUTOMATED Routine 07/17/2016 9:38 AM POLICY OFFICER VITAMIN D, 25 OH Routine 07/17/2016 9:38 AM POLICY OFFICER documented in this encounter Results * (ABNORMAL) LIPID PANEL (07/17/2016 9:38 AM POLICY OFFICER) CHOLESTEROL 248(H) 100 - 199 mg/dL [facility] TO EPIC CONVERSION TRIGLYCERIDES 81 0 - 149 mg/dL [facility] TO EPIC CONVERSION HDL 39(L) >39 mg/dL [facility] T O EPIC CONVERSION VLDL CALCULATION 16 5 - 40 mg/dL [facility] TO EPIC CONVERSION LDL (CALCULATED) 193(H) 0 - 99 mg/dL [facility] TO EPIC CONVERSION COMMENT [facility] T O EPIC CONVERSION Comment: Result Comment: Possible Familial Hypercholesterolemia. FH should be suspected when fasting LDL cholesterol is above 189 mg/dL or non-HDL cholesterol is above 219 mg/dL. A family history of high cholesterol and heart disease in 1st degree relatives should be collected. J Clin Lipidol 2011;5:133-140 07/17/2016 9:38 AM POLICY OFFICER 07/17/2016 9:38 AM POLICY OFFICER Narrative [facility] TO EPIC CONVERSION - 07/18/2016 5:11 AM POLICY OFFICER Result Communication: No patient communication needed at this time Miguel Ángel Olea MD LABORATORY Final Result [facility] TO EPIC CONVERSION * COMPREHENSIVE METABOLIC PANEL (07/17/2016 9:38 AM POLICY OFFICER) COMMENT [facility] T O EPIC CONVERSION Comment: Result Comment: A hand-written panel/profile was received from your office. In accordance with the [facility] Ambiguous Test Code Policy dated November 2002, we have completed your order by using the closest currently or formerly recognized AMA panel. ??We have assigned Comprehensive Metabolic Panel (14), Test Code #840579 to this request. ??If this is not the testing you wished to receive on this specimen, please contact the [facility]ical [facility] Department to clarify the test order. ??We appreciate your business. 07/17/2016 9:38 AM POLICY OFFICER 07/17/2016 9:38 AM POLICY OFFICER Narrative [facility] TO EPIC CONVERSION - 07/18/2016 5:11 AM POLICY OFFICER Result Communication: No patient communication needed at this time Miguel Ángel Olea MD LABORATORY Final Result Performing Organization Address [facility] de Phone Number [facility] TO EPIC CONVERSION * LIPID PANEL (07/17/2016 9:38 AM POLICY OFFICER) COMMENT [facility] T O EPIC CONVERSION Comment: Result Comment: A hand-written panel/profile was received from your office. In accordance with the [facility] Ambiguous Test Code Policy dated November 2002, we have completed your order by using the closest currently or formerly recognized AMA panel. ??We have assigned Lipid Panel, Test Code #[id number] to this request. If this is not the testing you wished to receive on this specimen, please contact the [facility] Client Inquiry/Technical Services Department to clarify the test order. ??We appreciate your business. 07/17/2016 9:38 AM POLICY OFFICER 07/17/2016 9:38 AM POLICY OFFICER Narrative [facility] TO EPIC CONVERSION - 07/18/2016 5:11 AM POLICY OFFICER Result Communication: No patient communication needed at this time Miguel Ángel Olea MD LABORATORY Final Result Performing Organization Address [facility] de Phone Number [facility] TO EPIC CONVERSION * HEMOGLOBIN, GLYCOSYLATED (07/17/2016 9:38 AM POLICY OFFICER) HGB A1C 5.5 4.8 - 5.6 % [facility] TO EPIC CONVERSION Comment: Result Comment: ?. ? Pre-diabetes: 5.7 - 6.4 ? Diabetes: >6.4 ? Glycemic control for adults with diabetes: <7.0 07/17/2016 9:38 AM POLICY OFFICER 07/17/2016 9:38 AM POLICY OFFICER Narrative [facility] TO EPIC CONVERSION - 07/18/2016 5:11 AM POLICY OFFICER Result Communication: No patient communication needed at this time Miguel Ángel Olea MD LABORATORY Final Result Performing Organization Address [facility] de Phone Number [facility] TO EPIC CONVERSION * VITAMIN B12 / FOLATE (07/17/2016 9:38 AM POLICY OFFICER) VITAMIN B12 S/P/B 377 211 - 946 pg/mL [facility] TO EPIC CONVERSION FOLATE 7.0 >3.0 ng/mL [facility] TO EPIC CONVERSION Comment: Result Comment: A serum folate concentration of less than 3.1 ng/mL is considered to represent clinical deficiency. 07/17/2016 9:38 AM POLICY OFFICER 07/17/2016 9:38 AM POLICY OFFICER Narrative [facility] TO EPIC CONVERSION - 07/18/2016 5:11 AM POLICY OFFICER Result Communication: No patient communication needed at this time Miguel Ángel Olea MD LABORATORY Final Result Performing Organization Address [facility] de Phone Number [facility] TO EPIC CONVERSION * CBC W/DIFF AUTOMATED (07/17/2016 9:38 AM POLICY OFFICER) WBC 9.0 3.4 - 10.8 x10E3/uL [facility] TO EPIC CONVERSION RBC 5.03 3.77 - 5.28 x10E6/uL [facility] TO EPIC CONVERSION HEMOGLOBIN MIXED VENOUS 14.3 11.1 - 15.9 g/dL [facility] TO EPIC CONVERSION HCT 42.2 34.0 - 46.6 % [facility] TO EPIC CONVERSION MCV 84 79 - 97 fL [facility] TO EPIC CONVERSION MCH 28.4 26.6 - 33.0 pg [facility] TO EPIC CONVERSION MCHC 33.9 31.5 - 35.7 g/dL [facility] TO EPIC CONVERSION RDW 13.3 12.3 - 15.4 % [facility] TO EPIC CONVERSION PLT 313 150 - 379 x10E3/uL [facility] TO EPIC CONVERSION SEG NEUTROPHILS 58 % [facility] ROUP TO EPIC CONVERSION LYMPHOCYTES 31 % [facility] TO EPIC CONVERSION MONOCYTES 7 % [facility] T O EPIC CONVERSION EOSINOPHILS 4 % [facility] TO EPIC CONVERSION BASOPHILS % 0 % [facility] TO EPIC CONVERSION IMMATURE CELLS [facility] OUP TO EPIC CONVERSION ABS. NEUTROPHILS 5.3 1.4 - 7.0 x10E3/uL [facility] TO EPIC CONVERSION ABS. LYMPHOCYTES 2.8 0.7 - 3.1 x10E3/uL [facility] TO EPIC CONVERSION ABS. MONOCYTES 0.6 0.1 - 0.9 x10E3/uL [facility] TO EPIC CONVERSION ABS. EOSINOPHILS 0.3 0.0 - 0.4 x10E3/uL [facility] TO EPIC CONVERSION ABS. BASOPHILS 0.0 0.0 - 0.2 x10E3/uL [facility] TO EPIC CONVERSION IMMATURE CELLS 0 % [facility] OUP TO EPIC CONVERSION ABS. IMMATURE GRANULOCYTES 0.0 0.0 - 0.1 x10E3/uL [facility] TO EPIC CONVERSION NRBC [facility] T O EPIC CONVERSION CBC COMMENT [facility] TO EPIC CONVERSION Comment: Result Comment: A hand-written panel/profile was received from your office. In accordance with the [facility] Ambiguous Test Code Policy dated November 2002, we have assigned CBC with Differential/Platelet, Test Code #[id number] to this request. If this is not the testing you wished to receive on this specimen, please contact the [facility] Client Inquiry/ Technical Services Department to clarify the test order. We appreciate your business. 07/17/2016 9:38 AM POLICY OFFICER 07/17/2016 9:38 AM POLICY OFFICER Narrative [facility] TO EPIC CONVERSION - 07/18/2016 5:11 AM POLICY OFFICER Result Communication: No patient communication needed at this time Miguel Ángel Olea MD LABORATORY Final Result [facility] TO EPIC CONVERSION * TRIIODOTHYRONINE TOTAL , TT-3 (07/17/2016 9:38 AM POLICY OFFICER) TRIPLE PHOSPHATE CRYSTALS 132 71 - 180 ng/dL [facility] TO EPIC CONVERSION 07/17/2016 9:38 AM POLICY OFFICER 07/17/2016 9:38 AM POLICY OFFICER Narrative [facility] TO EPIC CONVERSION - 07/18/2016 5:11 AM POLICY OFFICER Result Communication: No patient communication needed at this time us Miguel Ángel Olea MD LABORATORY Final Result [facility] TO EPIC CONVERSION * COMPREHENSIVE METABOLIC PANEL (07/17/2016 9:38 AM POLICY OFFICER) [facility] [address] GLUCOSE 94 65 - 99 mg/dL [facility] TO EPIC CONVERSION BUN 9 6 - 20 mg/dL [facility] TO EPIC CONVERSION CREATININE S/P/B 0.70 0.57 - 1.00 mg/dL [facility] TO EPIC CONVERSION EGFR NON-AFR. AMER. 113 >59 mL/min/1.7 3 [facility] TO EPIC CONVERSION EGFR AFR. AMER. 130 >59 mL/min/1.7 3 [facility] TO EPIC CONVERSION BUN CREATININE RATIO 13 8 - 20 [facility] TO EPIC CONVERSION SODIUM S/P/B 139 134 - 144 mmol/L [facility] TO EPIC CONVERSION POTASSIUM S/P/B 4.8 3.5 - 5.2 mmol/L [facility] TO EPIC CONVERSION CHLORIDE S/P/B 101 96 - 106 mmol/L [facility] TO EPIC CONVERSION TCO2 21 18 - 29 mmol/L [facility] TO EPIC CONVERSION CALCIUM S/P/B 9.7 8.7 - 10.2 mg/dL [facility] TO EPIC CONVERSION PROTEIN 7.0 6.0 - 8.5 g/dL [facility] TO EPIC CONVERSION ALBUMIN S/P/B 4.1 3.5 - 5.5 g/dL [facility] TO EPIC CONVERSION GLOBULIN 2.9 1.5 - 4.5 g/dL [facility] TO EPIC CONVERSION A/G RATIO 1.4 1.1 - 2.5 [facility] T O EPIC CONVERSION Comment: Result Comment: ?Effective July 28, 2016 the reference interval ? for A/G Ratio will be changing to: ?Age ?Male ?Female ? 0 - ??7 days ? 1.1 - 2.3 ? 1.1 - 2.3 ? 8 - 30 days ? 1.2 - 2.8 ? 1.2 - 2.8 ? 1 - ??6 months ? 1.3 - 3.6 ? 1.3 - 3.6 ?7 months - ??5 years ?1.5 - 2.6 ? 1.5 - 2.6 ?> 5 years ?1.2 - 2.2 ? 1.2 - 2.2 BILIRUBIN TOTAL (FLUID) 0.4 0.0 - 1.2 mg/dL [facility] TO EPIC CONVERSION ALKALINE PHOSPHATASE S/P/B 83 39 - 117 IU/L [facility] TO EPIC CONVERSION AST 17 0 - 40 IU/L [facility] TO EPIC CONVERSION ALT 25 0 - 32 IU/L [facility] TO EPIC CONVERSION 07/17/2016 9:38 AM POLICY OFFICER 07/17/2016 9:38 AM POLICY OFFICER Narrative [facility] TO EPIC CONVERSION - 07/18/2016 5:11 AM POLICY OFFICER Result Communication: No patient communication needed at this time us Miguel Ángel Olea MD LABORATORY Final Result [facility] TO EPIC CONVERSION * (ABNORMAL) VITAMIN D, 25 OH (07/17/2016 9:38 AM POLICY OFFICER) Pathologist [facility] VITAMIN D 25 HYDROXY S/P/B 16.1(L) 30.0 - 100.0 ng/mL [facility] TO EPIC CONVERSION Comment: Result Comment: Vitamin D deficiency has been defined by the [place] of Medicine and an Endocrine Society practice guideline as a level of serum 25-OH vitamin D less than 20 ng/mL (1,2). The Endocrine Society went on to further define vitamin D insufficiency as a level between 21 and 29 ng/mL (2). 1. IOM ([place] of Medicine). 2010. Dietary reference ?? intakes for calcium and D. [place]: The ?? National Publer Press. 2. Cheyenne MF, Beth NC, Verena HERNANDEZ, et al. ?? Evaluation, treatment, and prevention of vitamin D ?? deficiency: an Endocrine Society clinical practice ?? guideline. JCEM. 2010; 96(7):1911-30. 07/17/2016 9:38 AM POLICY OFFICER 07/17/2016 9:38 AM POLICY OFFICER Narrative [facility] TO EPIC CONVERSION - 07/18/2016 5:11 AM POLICY OFFICER Result Communication: No patient communication needed at this time us Miguel Ángel Olea MD LABORATORY Final Result [facility] TO EPIC CONVERSION * T4 AND TSH (07/17/2016 9:38 AM POLICY OFFICER) TSH 0.833 0.450 - 4.500 uIU/mL [facility] TO EPIC CONVERSION FREE T4 1.38 0.82 - 1.77 ng/dL [facility] TO EPIC CONVERSION 07/17/2016 9:38 AM POLICY OFFICER 07/17/2016 9:38 AM POLICY OFFICER Narrative [facility] TO EPIC CONVERSION - 07/18/2016 5:11 AM POLICY OFFICER Result Communication: No patient communication needed at this time Miguel Ángel Olea MD LABORATORY Final Result [facility] TO EPIC CONVERSION documented in this encounter Visit Diagnoses Not on filedocumented in this encounter Care Teams Velocity Shooter Relationship Specialty Start Date End Date Miguel Ángel Olea MD [address] [place] [id number] PCP - General FAMILY PRACTICE 07/16/16 documented as of this encounter
--- OUTSIDE RECORDS SUMMARY | 2024-05-29 17:27 | XMS_ITS | Encounter Summary ---
Author Organization [facility] Address [address] [place] [address]. [place], [place] [address] [place] [address] Care Team Providers Care Honey Producer Name Role Phone Miguel Ángel Olea MD Primary Care Provider [phone] Encounter Details Date Type Department Care Team (Late st Contact Info) Description 11/17/2016 Abstract [facility] Medical Group Family Medicine - [place] [id number] [facility], [address] [place] [address] Miguel Ángel Olea MD [address] [place] [address] [address] [place] [address] Social History Tobacco Use Types [...] Reading Time Taken Comments Blood Pressure 110/70 11/17/2016 1:07 PM CDT Pulse - - Temperature - - Respiratory Rate - - Oxygen Saturation - - Inhaled Oxygen Concentration - - Weight 103.9 kg (229 lb) 11/17/2016 1:07 PM CDT Height 162.6 cm (5' 4 ) 11/17/2016 1:07 PM CDT Body Mass Index 39.31 11/17/2016 1:07 PM CDT documented in this encounter Progress Notes * Miguel Ángel Olea MD - 11/17/2016 1:00 PM CDT Reason For Visit Chronic Recheck Visit / Medication refills History of Present Illness HPI Free Text: 36 yo WAF for f/u and medication review. overall doing well, takes meds regularly, no side effects. Review of Systems Constitutional: feeling poorly, but no fever and no headache. ENT: no earache, no nosebleeds and no hearing loss. Cardiovascular: the heart rate was not slow, no chest pain and the heart rate was not fast. Respiratory: no shortness of breath and no [...] History of Cholecystectomy Laparoscopic ?? dr. seth pappas Md 2. History of Decompress Fasciotomy Mult Compartments Of Thigh, Debridemen ?? puncure rebarb left thigh debrided and surgerical treated by Dr. Seth Pappas General Surgeon. 3. History of Knee Surgery Left ?? LEFT KNEE MENISCAL TEAR, ACL/PCL TEAR, DONE AT [facility] IN [place] Family History Father 1. Family history of [...] (Last Rx:25Jul2016) Requested for: 25Jul2016 Ordered 2. Kmkikacfdu-HKYR-Xdtnhakd 50-325-40 MG Oral Capsule; TAKE 1 TO 2 CAPSULES EVERY 4 TO 6 HOURS NEEDED FOR PAIN; Therapy: 16Jul2016 to (Evaluate:20Jul2016); Last Rx:16Jul2016 Ordered 3. Hzhwmuefqe-RMVB-Jepizcqb 50-325-40 MG Oral Tablet; TAKE ONE TO TWO TABLETS BY MOUTH EVERY 4 TO 6 HOURS NEEDED FOR PAIN; Therapy: 10Oct2016 to (Evaluate:[id number]) Requested for: 11Nov2016; Last Rx:11Nov2016 Ordered 4. Cetirizine HCl - 10 MG Oral Tablet; TAKE ONE TABLET BY MOUTH ONCE DAILY DIRECTED; Therapy: 01Sep2016 to (Evaluate:[id number]) Requested for: 01Sep2016; Last Rx:01Sep2016 Ordered 5. Ergocalciferol 73372 UNIT Oral Capsule; TAKE 1 CAPSULE WEEKLY; Therapy: 25Jul2016 to (Last Rx:25Jul2016) Requested for: 25Jul2016 Ordered 6. Phentermine HCl - 15 MG Oral Capsule; TAKE 1 CAPSULE EVERY MORNING BEFORE BREAKFAST; Therapy: 10Oct2016 to (Evaluate:09Nov2016); Last Rx:10Oct2016 Ordered 7. PredniSONE 10 MG Oral Tablet; TAKE 6 TABLETS TODAY, THEN DECREASE BY 1 TABLET EACH DAY UNTIL GONE; Therapy: 10Oct2016 to (Last Rx:10Oct2016) Requested for: 10Oct2016 Ordered 8. Topiramate 50 MG Oral Tablet; TAKE 1 TABLET BY TWICE DAILY; Therapy: 17Jul2016 to (Last Rx:17Jul2016) Requested for: 17Jul2016 Ordered 9. Topiramate 50 MG Oral Tablet; TAKE 1 TABLET BY TWICE DAILY; Therapy: 10Oct2016 to (Last Rx:10Oct2016) Requested for: 10Oct2016 Ordered 10. Transderm-Scop (1.5 MG) 1 MG/3DAYS Transdermal Patch 72 Hour; APPLY 1 PATCH EVERY 3 DAYS; Therapy: 16Jul2016 to (Evaluate:16Aug2016); Last Rx:16Jul2016 Ordered 11. ZyrTEC Allergy 10 MG Oral Tablet; TAKE 1 TABLET DAILY DIRECTED; Therapy: 16Jul2016 to (Evaluate:01Mar2017) Requested for: 02Sep2016; Last Rx:02Sep2016 Ordered Allergies 1. No Known Drug Allergies Vitals Recorded: 17Nov2016 01:07PM Systolic 110 Diastolic 70 Height 5 ft 4 in Weight 229 lb BMI Calculated 39.31 BSA Calculated 2.07 Physical Exam Constitutional General appearance: No acute [...] S1 and S2, without murmurs. Assessment 1. Headache (784.0) (R51) 2. Allergic rhinitis (477.9) (J30.9) 3. Overweight (278.02) (E66.3) Plan Headache 1. From Topiramate 50 MG Oral Tablet TAKE 1 TABLET BY TWICE DAILY To Topiramate 100 MG Oral Tablet TAKE 1 TABLET TWICE DAILY Rx By: Miguel Ángel Olea; Dispense: 30 Days ; #:60 Tablet; Refill: 11; For: Headache; MARY = N; Sent To:[facility] 361 Knee pain, left 2. Phentermine HCl - 15 MG Oral Capsule; TAKE 1 CAPSULE EVERY MORNING BEFORE BREAKFAST Rx By: Miguel Ángel Olea; Dispense: 30 Days ; #:30 Capsule; Refill: 0; For: Knee pain, left; MARY = N; Print Rx Discussion/Summary A&P 1- Headaches: stable. current care 2- AR: stable. current care 3- Overall: stable. current care f/u prn Signatures Electronically signed by : Miguel Ángel Olea M.D.; Nov 17 2016 1:28PM [employer] (Author) documented in this encounter Plan of Treatment Not on file documented as of this encounter Visit Diagnoses Not on filedocumented in this encounter Care Teams Honey Producer Relationship Specialty Start Date End Date Miguel Ángel Olea MD [address] [address] PCP - General FAMILY PRACTICE 07/16/16 documented as of this encounter
--- OUTSIDE RECORDS SUMMARY | 2024-05-29 17:27 | XMS_ITS | Encounter Summary ---
Author Organization [facility] Address [address] [place] [address]. [place], [place] [id number] [place] [address] Care Team Providers Care Machine Clipper Name Role Phone Jun Ivey MD Primary Care Provider Miguel Ángel Blakely MD Primary Care Provider [phone] Encounter Details Date Type Department Care Team (Late st Contact Info) Description 07/24/2015 Abstract [facility] Family Medicine - [place] [address], [address] [place] [address] Jun Ivey MD [address] [place] [address] Social History Tobacco Use Types Packs/Day Years Used Date Smoking Tobacco: Never Assessed Comments Unknown Sex and Gender Information Value Date Recorded Sex Assigned at Not on file Legal Sex Female 5:36 PM CDT Gender Identity Not on file Sexual Orientation Not on file documented as of this encounter Last Filed Vital Signs Vital Sign Reading Time Taken Comments Blood Pressure 124/78 07/24/2015 11:09 AM CURTAIN FRAMER Pulse 80 07/24/2015 11:09 AM CURTAIN FRAMER Temperature - - Respiratory Rate - - Oxygen Saturation - - Inhaled Oxygen Concentration - - Weight 102.5 kg (226 lb) 07/24/2015 11:09 AM CURTAIN FRAMER Height - - Body Mass Index 38.79 06/14/2015 1:50 PM CURTAIN FRAMER documented in this encounter Progress Notes * Generic Conversion MD Bairon - 07/24/2015 11:20 AM CST Chief Complaint f/u lab History of Present Illness HPI Free Text: 35 y/o female who comes in for evaluation and followin. Knee Pain: since last visit has improved in terms of stability and strength is getting better. pain had actually nearly resolved until the last visit or so she started using the tension bands and caused a little more pain. she has been using the tension bands 4 weeks now and the pain has plateaued at a 4/10. she did however fall again and this caused some worsening pain. overall states its now20% better. she states that it was at least 40% better after PT. she states that the physical therapist was taping her knee routinely before PT and the taping was 60-70% better with taping. 2. Allergies: doing well on medications. 3. High Cholesterol: noted on labs done recently. dietary handout was given and she is planning to work on this. Review of Systems Constitutional: no fever and no chills. Cardiovascular: no chest pain and no palpitations. Respiratory: no shortness of breath and no wheezing. Active Problems 1. Allergic rhinitis (477.9) (J30.9) 2. Hypercholesterolemia (272.0) (E78.0) 3. Knee pain, left (719.46) (M25.562) 4. Lipid screening (V77.91) (Z13.220) 5. Screening for diabetes mellitus (V77.1) (Z13.1) Past Medical History 1. History of ACL [...] KNEE MENISCAL TEAR, ACL/PCL TEAR, DONE AT [facility] IN [place] Family History Father 1. Family history of [...] consumes alcohol (V49.89) (Z78.9) Current Meds 1. No Reported Medications Recorded Allergies 1. No Known Drug Allergies Vitals Recorded: 24Jul2015 11:09AM Temperature 97.9 F, Oral Heart Rate 80 Respiration 18 Systolic 124, R Brachial Artery, Sitting Diastolic 78, R Brachial Artery, Sitting O2 Saturation 98 Weight 226 lb BMI Calculated 38.79 BSA Calculated 2.06 Physical Exam Constitutional General appearance: No acute distress, well appearing and well nourished. Head and Face Head and face: Normal. Psychiatric Orientation to person, place, and time: Normal. Mood and affect: Normal. Left Knee: Appearance: Normal grossly as it appears when visualized through the patient's jeans. Tenderness: diffuse medial knee and medial patellar retinaculum, but not diffusely over the lateral knee, not the undersurface of the patella, not the lateral patellar retinaculum and not the quadricepstendon. Motor: left hip flexion/extension intact. left foot plantarflexion/dorsiflexion intact. Flexion was 5/5. Extension was 5/5. Special Test: however there is tenderness over the medial side of the knee., but negative Anterior Drawer sign, negative dial test, negative Hugh test, negative Posterior Drawer sign, no laxity on Valgus Stress and no laxity on Varus Stress. Results/Data Lipid Profile [id number] 09:52AM Jun Ivey Test Name Result Flag [...] Basic Metabolic Prof ( BMP ) 22Jun2015 09:52AM Jun Ivey Test Name [...] doses. mL/min/1.73m'2 Hemoglobin A1C ( HA1C ) [id number] 09:52AM Jun Ivey Test Name Result Flag Reference Hemoglobin A1c 5.0 % 4.8-5.6 ADA GUIDELINES 2010 5.7 TO 6.4% INCREASED RISK OF DIABETES > OR = 6.5% CONSISTENT WITH DIABETES Estimated Average Glucose 97 mg/dL Assessment 1. Knee pain, left (719.46) (M25.562) 2. Hypercholesterolemia (272.0) (E78.0) Discussion/Summary 1. KNEE PAIN: I suspect the patient has a chronic strain of the medial collateral ligament. This could be accentuated by her standing posture which may be putting or emphasizing more strain on the medial side of the knee. We will try to get the patient a patellar stabilizer brace from [employer] and in the meantime, she can take nonsteroidal antiinflammatories for pain. I also suggested to her using some Icy Hot or Biofreeze and she states that she uses a topical BenGay to kind of help with her symptoms. I suggested as she wears the brace she shall continue to do physical therapy and see if this starts helping her symptoms. Patient seemed to acknowledge discussion and plans. We will mo nitor symptoms for now otherwise. No x-ray was ordered at this time. 2. HYPERCHOLESTEROLEMIA: The patient has some mild high cholesterol. Otherwise her labs are normal.We provided her dietary handouts for her to work on and we will likely repeat the cholesterol in about 6 months. Patient seemed to acknowledge discussion and plans. Plans are as above. Signatures Electronically signed by : Jun Ivey M.D.; Jul 25 2015 6:39PM CURTAIN FRAMER (Author) documented in this encounter Plan of Treatment Not on file documented as of this encounter Visit Diagnoses Not on filedocumented in this encounter Care Teams Machine Clipper Relationship Specialty Start Date End Date Jun Ivey MD PCP - General 07/06/15 07/15/16 Miguel Ángel Olea MD [address] [place] [address] PCP - General FAMILY PRACTICE 07/16/16 documented as of this encounter
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
--- OUTSIDE RECORDS SUMMARY | 2024-05-29 17:27 | XMS_ITS | Encounter Summary ---
Author Organization [facility] Address [address] [place] [address]. [place], [place] [address] [place] [address] Care Team Providers Care Canvas Shop Laborer Name Role Phone Miguel Ángel Olea MD Primary Care Provider [phone] Encounter Details Date Type Department Care Team (Latest Contact Info) Description 04/29/2017 Abstract [facility] Keysha Jackson MD [address] [id number] Social History Tobacco Use Types Packs/Day Years [...] on file documented as of this encounter H&P Notes * Keysha Jackson MD - 04/29/2017 9:47 AM CST [place] [address] Patient Name: LELA LEI Date of : 1980 Med Rec #: [id number] Date of Service: 04/29/2017 Disch Date: HISTORY AND PHYSICAL INTERVAL NOTE: I have reviewed Lela Lei History Physical which was performed within the past 30 days. After examining Lela Lei, no change has occurred in the patient's condition since the Hwas completed. Informed Consent Discussion: Risks, benefits, alternatives as well as the consequences of not performing the surgery/procedure were discussed with the patient and/or family/personal sales representative raw fibers. Questions were answered and the patient/family/personal sales representative raw fibers verbalized understanding and desires to proceed. Referred [...] bleeding is during the BM described as fresh blood and sometimes dripping of blood and clotting [...] heart burn or acid reflux. No constipation or diarrhea, no melena. No weight loss, + prior [...] Surgical History 1. History of Cholecystectomy Laparoscopic ? dr. seth rg Md 2. History of Decompress Fasciotomy Mult Compartments Of Thigh, Debridemen ? puncure rebarb left thigh debrided and surgerical treated by Dr. Seth Rg General Surgeon. 3. History of Knee Surgery Left ? LEFT KNEE MENISCAL TEAR, ACL/PCL TEAR, DONE AT [facility] IN [place] Family History Mother 1. Family history of fibromyalgia (V17.89) (Z82.69) Father 2. Family history of deep venous thrombosis (V17.49) (Z82.49) 3. Family history of diabetes mellitus (V18.0) (Z83.3) Paternal Grandmother 4. Family history of diabetes mellitus (V18.0) (Z83.3) 5. Family history of lung cancer (V16.1) (Z80.1) ? grandmother - smoker grandfather - non smoker. 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 Paternal Grandfather 6. Family history of diabetes mellitus (V18.0) (Z83.3) 7. Family history of lung cancer (V16.1) (Z80.1) ? grandmother - smoker grandfather - non smoker. 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 Aunt 8. Family history of Breast cancer, female ? 2 aunts with breast cancer - and ovarian cancer. 9. Family history of Ovarian cancer ? 4 aunts (maternal) with ovarian CA) Paternal Uncle 10. Family history of diabetes mellitus (V18.0) (Z83.3) Social History ? Current every day smoker (305.1) (F17.200) ? 5-10 cigg/day for 17 years (began 1997) ? Currently working ? Rarely consumes alcohol (V49.89) (Z78.9) Current Meds 1. Atorvastatin Calcium 10 MG Oral Tablet; TAKE 1 TABLET BY MOUTH EVERY DAY; Therapy: 25Jul2016 to (Last Rx:25Jul2016) Requested for: 25Jul2016 Ordered Rx By: Miguel Ángel Olea; Dispense: 0 Days ; #:1 X 90 Tablet Bottle; Refill: 2;For: Hypercholesterolemia; MARY = N; Verified Transmission to [facility]; Last Updated By: Medialets; 07/25/2016 9:00:35 AM 2. Cetirizine HCl - 10 MG Oral Tablet; TAKE ONE TABLET BY MOUTH ONCE DAILY DIRECTED; Therapy: 28Phh9986 to (Evaluate:41Jgj3922) Requested for: 35Nit9988; Last Rx:[id number] Ordered Rx By: Miguel Ángel Olea; Dispense: 30 Days ; #:30 TAB; Refill: 2;For: Allergic rhinitis; MARY = N; Verified Transmission to [facility]; Last Updated By: Medialets; 01/27/2017 8:00:08 AM 3. Ergocalciferol 04756 UNIT CAPS; TAKE 1 CAPSULE WEEKLY; Therapy: 25Jul2016 to (Last Rx:25Jul2016) Requested for: 25Jul2016 Ordered Rx By: Miguel Ángel Olea; Dispense: 0 Days ; #:12 Capsule; Refill: 3;For: Low vitamin D level; MARY = N; Verified Transmission to [facility]; Last Updated By: Medialets; 07/25/2016 9:00:35 AM 4. Stool Softener CAPS; TAKE CAPSULE PRN; Therapy: (Recorded:[id number]) to Recorded Dispense: 0 Days ; #: Sufficient Capsule; Refill: 0; MARY = N; Record; Last Updated By: Yulia Marin; 04/17/2017 8:46:45 AM 5. Topiramate 100 MG Oral Tablet; TAKE 1 TABLET TWICE DAILY; Therapy: 17Jul2016 to (Evaluate:12Nov2017) Requested for: 23Hlq4678; Last Rx:[id number] Ordered Rx By: Miguel Ángel Olea; Dispense: 30 Days ; #:60 Tablet; Refill: 11;For: Headache; MARY = N; Sent To: [facility] Allergies 1. No Known Drug Allergies [...] oriented x 3 Results/Data LC-CBC/Diff Ambiguous Default [id number] 17Jul2016 09:38AM Miguel Ángel Olea Test Name Result Flag Reference WBC 9.0 [...] from your office. In accordance with the [facility] Ambiguous Test Code Policy dated November 2002, we have assigned CBC with Differential/Platelet, Test Code #010150 to this request. If this is not the testing you wished to receive on this specimen, please contact the [facility] Client Inquiry/ Technical Services Department to clarify the test order. We appreciate your business. LC-Comp. Metabolic Panel ( CMP ) [id number] [id number] 09:38AM Miguel Ángel Olea Test Name Result [...] the meantime she will continue a good bowel regimen, add hemorrhoidal suppo BID continue topical Rx. [...] perforation of the bowel which may require hospitalization and surgery, bleeding, infection, aspiration ), benefits, and alternatives of the procedure(s) and they are agreeable to proceed as planned. Signatures Electronically signed by : Keysha Jackson MD; Apr 17 2017 9:37AM TROUBLE DISPATCHER (Author) Signed by: KEYSHA JACKSON 04/29/2017 09:47 AM documented in this encounter Procedure Notes * Keysha Jackson MD - 04/29/2017 10:25 AM CST [address] [address] Patient Name: LELA LEI Date of : 1980 Med Rec #: [id number] Date of Service: 04/29/2017 Disch Date: Colonoscopy Report Provider(s): Keysha Jackson MD Procedure: Colonoscopy Medications: Monitored Anesthesia Care Patient Profile: No prior colonoscopy. Description of Procedure: After I obtained informed consent, the scope was passed under direct vision. Throughout the procedure, the patient's blood pressure, pulse, and oxygen saturations were monitored continuously. The colonoscope was introduced through the anus and advanced to the cecum, identified by appendiceal orifice and ileocecal valve. The [...] previously scheduled. -Follow-up in clinic as needed Signed by: KEYSHA JACKSON 04/29/2017 10:30 AM documented in this encounter Plan of Treatment Not on file documented as of this encounter Procedures Procedure Name Priority Date/Time Associated Diagnosis Comments COLONOSCOPY Routine 04/29/2017 12:00 AM TROUBLE DISPATCHER documented in this encounter Results * Colonoscopy (04/29/2017 12:00 AM TROUBLE DISPATCHER) 04/29/2017 04/29/2017 Narrative [facility] TO EPIC CONVERSION - 04/29/2017 12:00 AM TROUBLE DISPATCHER Documented hx of procedure Procedure Note Nav Vaughn MD - 03/21/2018 Documented hx of procedure us Generic Conversion Md VAUGHN GI PROCEDURE ORDERABLES Final Result [facility] CON[facility] documented in this encounter Visit Diagnoses Not on filedocumented in this encounter Care Teams Canvas Shop Laborer Relationship Specialty Start Date End Date Miguel Ángel Olea MD [address] [id number] PCP - General FAMILY PRACTICE 07/16/16 documented as of this encounter
--- OUTSIDE RECORDS SUMMARY | 2024-05-29 17:27 | XMS_ITS | Encounter Summary ---
Author Organization [facility] Address [address] [place] [address]. [place], [place] [address] [place] [address] Care Team Providers Care Gluer Machine Operator Name Role Phone Jun Ivey MD Primary Care Provider Jun Long MD Primary Care Provider Jun Long MD Primary Care Provider Jun Long MD Primary Care Provider Jun Long MD Primary Care Provider Jun Long MD Primary Care Provider Glenroy yap Md Generic Calvin VAUGHN Primary Care Provider Unavailable Dot Shultz DO Primary Care Provider [phone] Miguel Ángel Olea MD Primary Care Provider [phone] Encounter Details Date Type Department Care Team (Late st Contact Info) Description 08/20/1997 Abstract [place] [address] Md Generic MD Calvin Social History Tobacco [...] on filedocumented in this encounter Care Teams Gluer Machine Operator Relationship Specialty Start Date End [...] General 07/23/11 Dot Shultz DO [address] [address] PCP - General 01/24/11 07/22/11 Miguel Ángel Olea MD [address] [facility] [address] [place] [address] PCP - General FAMILY PRACTICE 07/16/16 documented as of this encounter
--- OUTSIDE RECORDS SUMMARY | 2024-05-29 17:27 | XMS_ITS | Encounter Summary ---
Author Organization [facility] Address [address] [place] [address]. [place], [place] [address] [place] [address] Care Team Providers Care Fitting Supervisor Name Role Phone Miguel Ángel Olea MD Primary Care Provider [phone] Reason for Visit * Auth/Cert Specialty Diagnoses / Procedures Referred By Contac t Referred To Contact Diagnoses BRIGHT RED BLOOD PER RECTUM, BLOOD IN STOOL Procedures COLONOSCOPY Referral ID Status Reason Start Date Expiration Date Visits Re quested Visits Authorized [id number] 1 1 Encounter Details Date Type Department Care Team (Latest Contact Info) Description 04/29/2017 8:56 AM STENOTYPIST - 04/29/2017 11:01 AM STENOTYPIST Hospital Encounter [facility] [place] [address] Pancho Jackson MD [address] [facility] [address] [place] [address] Discharge Disposition: Home or Self Care (Routine [...] Comments Blood Pressure 103/72 04/29/2017 10:50 AM STENOTYPIST Pulse 66 04/29/2017 10:50 AM STENOTYPIST Temperature 37.1 ??C (98.7 ??F) 04/29/2017 9:19 AM CS T Respiratory Rate 19 04/29/2017 10:50 AM STENOTYPIST Oxygen Saturation 98% 04/29/2017 10:50 AM STENOTYPIST Inhaled Oxygen Concentration - - Weight 97.5 kg (215 lb) 04/21/2017 12:01 AM STENOTYPIST Height 162.6 cm (5' 4 ) 04/21/2017 12:01 AM STENOTYPIST Body Mass Index 36.9 04/21/2017 12:01 AM STENOTYPIST documented in this encounter Discharge Instructions * Discharge Instructions* Pancho Jackson MD - 04/29/2017 10:25 AM STENOTYPIST Images from the original note were not [...] belly pain. Where can I learn more? [employer] http://www.gastro.org/info_for_patients/xkqrarplfbe-409-letc-ir-e-zdinregyubs [employer] Gastrointestinal Endoscopy http://www.asge.org/patients/patients.aspx?td=743 National Digestive Diseases Information Clearinghouse http://digestive.niddk.nih.gov/ddiseases/pubs/colonoscopy/ Last [...] right for you. Copyright Copyright ?? 2017 [employer] and its affiliates and/or licensors. All rights reserved. OTYPIST documented in this encounter Medications at Time [...] (two) times daily. 03/08/2020 vitamin D2, ergocalciferol, 87385 UNITS capsule Take 50,000 Units by mouth daily. 03/08/2020 documented as of this encounter H&P Notes * Pancho Jackson MD - 04/29/2017 9:47 AM CST HISTORY AND PHYSICAL INTERVAL NOTE: I have reviewed Renata Kristie Lei History & Physical which was performed within the past 30 days. After examining Renata Lei, no change has occurred in the patient's condition since the H&P was completed. Informed Consent Discussion: Risks, benefits, alternatives as well as the consequences of not performing the surgery/procedure were discussed with the patient and/or family/personal guest services representative. Questions were answered and the patient/family/personal guest services representative verbalized understanding and desires to proceed. [...] KNEE MENISCAL TEAR, ACL/PCL TEAR, DONE AT [facility] IN [place] Family History Mother 1. Family history of fibromyalgia (V17.89) (Z82.69) Father 2. Family history of deep venous thrombosis (V17.49) (Z82.49) 3. Family history of diabetes mellitus (V18.0) (Z83.3) Paternal Grandmother 4. Family history of diabetes mellitus (V18.0) (Z83.3) 5. Family history of lung cancer (V16.1) (Z80.1) ?? grandmother - smoker grandfather - non smoker. 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 Paternal Grandfather 6. Family history of diabetes mellitus (V18.0) (Z83.3) 7. Family history of lung cancer (V16.1) (Z80.1) ?? grandmother - smoker grandfather - non smoker. 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 Aunt 8. Family history of Breast cancer, [...] Hypercholesterolemia; MARY = N; Verified Transmission to [facility]; Last Updated By: Anuel VT Silicon; 07/25/2016 9:00:35 AM 2. Cetirizine HCl - 10 MG Oral Tablet; TAKE ONE TABLET BY MOUTH ONCE DAILY DIRECTED; Therapy: 16Rhv2835 to (Evaluate:62Qnw1331) Requested for: 39Iwe2517; Last Rx:[id number] Ordered Rx By: Miguel Ángel Olea; Dispense: 30 Days ; #:30 TAB; Refill: 2;For: Allergic rhinitis; MARY = N; Verified Transmission to [facility]; Last Updated By: Kira Talent; 01/27/2017 8:00:08 AM 3. Ergocalciferol 03361 UNIT CAPS; TAKE 1 CAPSULE WEEKLY; Therapy: 25Jul2016 to (Last Rx:25Jul2016) Requested for: 25Jul2016 Ordered Rx By: Miguel Ángel Olea; Dispense: 0 Days ; #:12 Capsule; Refill: 3;For: Low vitamin D level; MARY = N;Verified Transmission to [facility] 361; Last Updated By: Kira Talent; 07/25/2016 9:00:35 AM 4. Stool Softener CAPS; TAKE CAPSULE PRN; Therapy: (Recorded:17Apr2017) to Recorded Dispense: 0 Days ; #: Sufficient Capsule; Refill: 0; MARY = N; Record; Last Updated By: Yulia Marin; 04/17/2017 8:46:45 AM 5. Topiramate 100 MG Oral Tablet; TAKE 1 TABLET TWICE DAILY; Therapy: 17Jul2016 to (Evaluate:12Nov2017) Requested for: [id number]; Last Rx:[id number] Ordered Rx By: Miguel Ángel Olea; Dispense: 30 Days ; #:60 Tablet; Refill: 11;For: Headache; MARY = N; Sent To: [facility] 361 Allergies 1. No Known Drug [...] oriented x 3 Results/Data LC-CBC/Diff Ambiguous Default [id number] 17Jul2016 09:38AM Miguel Ángel Olea Test Name [...] have assigned CBC with Differential/Platelet, Test Code #877418 to this request. If this is not the testing you wished to receive on this specimen, please contact the [facility] Client Inquiry/ Technical Services Department to clarify the test order. We appreciate your business. LC-Comp. Metabolic Panel ( CMP ) [id number] 17Jul2016 09:38AM Miguel Ángel Olea Test Name [...] Pancho Jackson MD; Apr 17 2017 9:37AM STENOTYPIST (Author) OTYPIST documented in this encounter OR Notes * Op Note - Pancho Jackson MD - 04/29/2017 10:25 AM CST Colonoscopy Report Provider(s): Pancoh Jackson MD Procedure: Colonoscopy Medications: Monitored Anesthesia [...] previously scheduled. -Follow-up in clinic as needed OTYPIST documented in this encounter Plan of Treatment Not on file documented as of this encounter Procedures Procedure Name Priority Date/Time Associated Diagnosis Comments COLONOSCOPY 04/29/2017 9:43 AM STENOTYPIST BRIGHT RED BLOOD PER RECTUM, BLOOD IN STOOL Case Notes JAKE BY FAX 04-21-17 ML documented in this encounter Visit Diagnoses Not on filedocumented in this encounter Administered Medications Inactive Administered Medications - up to 3 most recent administrations Medication Order MAR Action Action Date Dose Rate Site lactated ringers infusion at 10 mL/hr, Intravenous, Continuous, Starting on Thu04/29/17 at 1000, Until Thu04/29/17 at 1316, Infuse at TKO rate, Pre-Op New Bag 04/29/2017 10:01 AM STENOTYPIST documented in this encounter Active and Recently Administered Medications Times are shown in STENOTYPIST. Continuous Medication Order 04/27/2017 04/28/2017 04/29/2017 lactated ringers infusion at 10 mL/hr, Intravenous, Continuous, Starting on Thu04/29/17 at 1000, Until Thu04/29/17 at 1316, Infuse at TKO rate, Pre-Op 1001 (New Bag - Prov ider: Antonio Braun CRNA)1023 (Anesthesia Volume Adjustment - Provider: Antonio Braun CRNA) documented in this encounter Care Teams Fitting Supervisor Relationship Specialty Start Date End Date Miguel Ángel Olea MD [address] [address] PCP - General FAMILY PRACTICE 07/16/16 documented as of this encounter
--- OUTSIDE RECORDS SUMMARY | 2024-05-29 17:27 | XMS_ITS | Encounter Summary ---
Author Organization [facility] Address [address] [place] [address]. [place], [place] [address] [place] [address] Care Team Providers Care Chemist Steroids Name Role Phone Jun Ivey MD Primary Care Provider Jun Long MD Primary Care Provider Jun Long MD Primary Care Provider Jun Long MD Primary Care Provider Jun Long MD Primary Care Provider Jun Long MD Primary Care Provider [place] yap Md Generic Calvin VAUGHN Primary Care Provider Unavailable Dot Shultz DO Primary Care Provider [phone] Miguel Ángel Olea MD Primary Care Provider [phone] Encounter Details Date Type Department Care Team (Late st Contact Info) Description 08/27/1998 Abstract [place] [address] Md Generic MD Calvin Social History Tobacco [...] on filedocumented in this encounter Care Teams Chemist Steroids Relationship Specialty Start Date End Date Jun [...] General 07/23/11 Dot Shultz DO [address] '[place] [address] PCP - General 01/24/11 07/22/11 Miguel Ángel Olea MD [address] [facility] [address] [place] [address] PCP - General FAMILY PRACTICE 07/16/16 documented as of this encounter
--- OUTSIDE RECORDS SUMMARY | 2024-05-29 17:27 | XMS_ITS | Encounter Summary ---
Author Organization [facility] Address [address] [place] [address]. [place], [place] [address] [place] [address] Care Team Providers Care Assisted Living Administrator Name Role Phone Miguel Ángel Olea MD Primary Care Provider [phone] Encounter Details Date Type Department Care Team (Late st Contact Info) Description 07/16/2016 Abstract [facility] Medical [facility] Family Medicine - [place] [address] [facility] [place] [address] Miguel Ángel Olea MD [address] [place] [address] [address] [place] [address] Social History Tobacco Use Types Packs/Day Years Used Date Smoking Tobacco: Never Assessed Comments Unknown Sex and Gender Information Value Date Recorded Sex Assigned at Not on file Legal Sex Female 5:36 PM CDT Gender Identity Not on file Sexual Orientation Not on file documented as of this encounter Progress Notes * Miguel Ángel Olea MD - 07/16/2016 2:15 PM CST Reason For Visit patient is here for a constant headache. History of Present Illness HPI Free Text: 36 yo WAF for f/u. a transfere from Dr. Ivey c/o 3 weeks of frequent headaches. at times sinus, sometimes temporal or occipital headaches. Review of Systems Constitutional: no fever, not feeling poorly and no headache. ENT: no earache and no nosebleeds. Cardiovascular: the heart rate was not slow, no chest pain and the heart rate was not fast. Respiratory: no shortness of breath and no wheezing. Gastrointestinal: no abdominal pain and no vomiting. Active Problems 1. Allergic rhinitis (477.9) (J30.9) 2. Hypercholesterolemia (272.0) (E78.00) 3. Knee pain, left (719.46) (M25.562) 4. [...] KNEE MENISCAL TEAR, ACL/PCL TEAR, DONE AT [facility] IN [place] Family History Father 1. Family history of [...] Recorded Allergies 1. No Known Drug Allergies Physical Exam Constitutional General appearance: No acute distress, well appearing and well nourished. Eyes Conjunctiva and lids: No swelling, erythema or discharge. Pupils and irises: Equal, round and reactive to light. Ears, Nose, Mouth, and Throat External inspection of ears and nose: Normal. Oropharynx: Abnormal. Oral mucosa had an exudate. Pulmonary Respiratory effort: No increased work of breathing or signs of respiratory distress. Auscultation of lungs: Clear to auscultation. Cardiovascular Auscultation of heart: Normal rate and rhythm, normal S1 and S2, without murmurs. Assessment 1. Headache (784.0) (R51) 2. Allergic rhinitis (477.9) (J30.9) 3. Hypercholesterolemia (272.0) (E78.00) Plan Headache 1. Pjligvraao-FUEF-Ivuefjmt 50-325-40 MG Oral Capsule; TAKE 1 TO 2 CAPSULES EVERY 4 TO 6 HOURS NEEDED FOR PAIN Rx By: Miguel Ángel Olea; Dispense: 4 Days ; #:40 Capsule; Refill: 0; For: Headache; MARY = N; Print Rx 2. Trokendi XR 50 MG Oral Capsule Extended Release 24 Hour; TAKE 1 CAPSULE Bedtime Rx By: Miguel Ángel Olea; Dispense: 30 Days ; #:30 Capsule Extended Release 24 Hour; Refill: 5; For: Headache; MARY = N; Print Rx Hypercholesterolemia 3. Transderm-Scop (1.5 MG) 1 MG/3DAYS Transdermal Patch 72 Hour; APPLY 1 PATCH EVERY 3 DAYS Rx By: Miguel Ángel Olea; Dispense: 31 Days ; #:1 X 10 Patch 72 Hour Box; Refill: 0; For: Hypercholesterolemia; MARY = N; Print Rx 4. ZyrTEC Allergy 10 MG Oral Tablet (Cetirizine HCl); TAKE 1 TABLET DAILY DIRECTED Rx By: Miguel Ángel Olea; Dispense: 30 Days ; #:1 X 30 Tablet Bottle; Refill: 1; For: Hypercholesterolemia; MARY = N; Print Rx 5. CBC W Differential; Status:Hold For - Manual Activation; Requested for:16Jul2016; Perform:[facility]; Due:15Aug2016;Ordered; For:Hypercholesterolemia; Ordered By:Miguel Ángel Olea; 6. Compr Metabolic Prof ( CMP ); Status:Hold For - Manual Activation; Requested for:16Jul2016; Perform:[facility]; Due:15Aug2016;Ordered; For:Hypercholesterolemia; Ordered By:Miguel Ángel Olea; 7. Free T4 ( Thyroxine ); Status:Hold For - Manual Activation; Requested for:16Jul2016; Perform:. [facility]; Due:15Aug2016;Ordered; For:Hypercholesterolemia; Ordered By:Miguel Ángel Olea; 8. Hemoglobin A1C ( HA1C ); Status:Hold For - Manual Activation; Requested for:16Jul2016; Perform:. [facility]; Due:15Aug2016;Ordered; For:Hypercholesterolemia; Ordered By:Miguel Ángel Oela; 9. Lipid Profile; Status:Hold For - Manual Activation; Requested for:16Jul2016; Perform:. [facility]; Due:15Aug2016;Ordered; For:Hypercholesterolemia; Ordered By:Miguel Ángel Olea; 10. Thyroid Stim Hormone ( TSH ); Status:Hold For - Manual Activation; Requested for:16Jul2016; Perform:[facility]; Due:15Aug2016;Ordered; For:Hypercholesterolemia; Ordered By:Miguel Ángel Olea; 11. Total Triiodothyronine ( T3 ); Status:Hold For - Manual Activation; Requested for:16Jul2016; Perform:. [facility]; Due:15Aug2016;Ordered; For:Hypercholesterolemia; Ordered By:Miguel Ángel Olea; 12. Vitamin B12 And Folate; Status:Hold For - Manual Activation; Requested for:16Jul2016; Perform:[facility]; Due:15Aug2016;Ordered; For:Hypercholesterolemia; Ordered By:Miguel Ángel Olea; 13. Vitamin D 25 - Hydroxy; Status:Hold For - Manual Activation; Requested for:16Jul2016; Perform:[facility]; Due:15Aug2016;Ordered; For:Hypercholesterolemia; Ordered By:Miguel Ángel Olea; Discussion/Summary A&P 1- HPL: Stable. continue current care 2- AR: Stable. continue current care 3- Headache: Stable. continue current care f/u 1 week after labs Signatures Electronically signed by : Miguel Ángel Olea M.D.; Jul 16 2016 2:24PM DIRECTOR OF ACADEMIC (Author) documented in this encounter Plan of Treatment Not on file documented as of this encounter Visit Diagnoses Not on filedocumented in this encounter Care Teams Assisted Living Administrator Relationship Specialty Start Date End Date Miguel Ángel Olea MD [address] [address] PCP - General FAMILY PRACTICE 07/16/16 documented as of this encounter
--- OUTSIDE RECORDS SUMMARY | 2024-05-29 17:27 | XMS_ITS | Encounter Summary ---
Author Organization [facility] Address [address] [place] [address]. [place], [place] [address] [place] [address] Care Team Providers Care Assistant Manager Retail Name Role Phone Jun Ivey MD Primary Care Provider Jun Long MD Primary Care Provider Jun Long MD Primary Care Provider Jun Long MD Primary Care Provider Jun Long MD Primary Care Provider Jun Long MD Primary Care Provider UnavailMiguel Ángel Garduno MD Primary Care Provider [phone] Encounter Details Date Type Department Care Team (Latest Contact Info) Description 06/20/2015 Abstract [facility] Social History Tobacco Use [...] on filedocumented in this encounter Care Teams Assistant Manager Retail Relationship Specialty Start Date End Date Jun vIey MD PCP - General 07/06/15 07/15/16 uJn Ivey MD PCP - General 07/02/15 07/05/15 Jun Ivey MD PCP - General 06/29/15 07/01/15 Jun Ivey MD PCP - General 06/25/15 06/28/15 Jun Ivey MD PCP - General 06/22/15 06/24/15 Jun Ivey MD PCP - General 06/18/15 06/21/15 Miguel Ángel Olea MD [address] [address] PCP - General FAMILY PRACTICE 07/16/16 documented as of this encounter
--- OUTSIDE RECORDS SUMMARY | 2024-05-29 17:27 | XMS_ITS | Encounter Summary ---
Author Organization [facility] Address [address] [place] [address]. [place], [place] [address] [place] [address] Care Team Providers Care Mold Cleaning And Storage Supervisor Name Role Phone Miguel Ángel Olea MD Primary Care Provider [phone] Encounter Details Date Type Department Care Team (Late st Contact Info) Description 07/25/2016 Abstract [facility] Family Medicine - [place] [address] [facility], [address] [place] [address] Miguel Ángel Olea MD [address] [place] [address] [address] [place] [address] Social History Tobacco Use Types Packs/Day Years Used Date Smoking Tobacco: Never Assessed Comments Unknown Sex and Gender Information Value Date Recorded Sex Assigned at Not on file Legal Sex Female 5:36 PM CDT Gender Identity Not on file Sexual Orientation Not on file documented as of this encounter Last Filed Vital Signs Vital Sign Reading Time Taken Comments Blood Pressure 114/70 07/25/2016 8:47 AM CHAR FILTER OPERATOR HELPER Pulse 71 07/25/2016 8:47 AM CHAR FILTER OPERATOR HELPER Temperature - - Respiratory Rate - - Oxygen Saturation - - Inhaled Oxygen Concentration - - Weight 107.7 kg (237 lb 6.4 oz) 07/25/2016 8:47 AM CHAR FILTER OPERATOR HELPER Height - - Body Mass Index 40.75 06/14/2015 1:50 PM CHAR FILTER OPERATOR HELPER documented in this encounter Progress Notes * Miguel Ángel Olea MD - 07/25/2016 8:45 AM CST Chief Complaint Follow up on labs History of Present Illness HPI Free Text: 36 yo WAF for f/u and medication review. overall doing well, takes meds regularly, no side effects.meds reviewed and discussed in details with patient Review of Systems Constitutional: headache, but not feeling poorly. ENT: no earache, no nosebleeds and no hearing loss. Cardiovascular: the heart rate was not slow, no chest pain and the heart rate was not fast. Respiratory: no shortness of breath. Gastrointestinal: no abdominal pain and no vomiting. Active Problems 1. Allergic rhinitis (477.9) (J30.9) 2. Headache (784.0) (R51) 3. Hypercholesterolemia (272.0) (E78.00) 4. Knee pain, left (719.46) (M25.562) Past Medical History 1. History of ACL [...] KNEE MENISCAL TEAR, ACL/PCL TEAR, DONE AT [facility] IN [place] Family History Father 1. Family history of [...] consumes alcohol (V49.89) (Z78.9) Current Meds 1. Shprdxifpa-EFQT-Dxldmpoo 50-325-40 MG Oral Capsule; TAKE 1 TO 2 CAPSULES EVERY 4 TO 6 HOURS NEEDED FOR PAIN; Therapy: 16Jul2016 to (Evaluate:20Jul2016); Last Rx:16Jul2016 Ordered 2. Topiramate 50 MG Oral Tablet; TAKE 1 TABLET BY TWICE DAILY; Therapy: 17Jul2016 to (Last Rx:17Jul2016) Requested for: 17Jul2016 Ordered 3. Transderm-Scop (1.5 MG) 1 MG/3DAYS Transdermal Patch 72 Hour; APPLY 1 PATCH EVERY 3 DAYS; Therapy: 16Jul2016 to (Evaluate:16Aug2016); Last Rx:16Jul2016 Ordered 4. ZyrTEC Allergy 10 MG Oral Tablet; TAKE 1 TABLET DAILY DIRECTED; Therapy: 16Jul2016 to (Evaluate:14Sep2016); Last Rx:16Jul2016 Ordered Allergies 1. No Known Drug Allergies Vitals Recorded: 25Jul2016 08:47AM Heart Rate 71 Systolic 114 Diastolic 70 O2 Saturation 96 Weight 237 lb 6.4 oz BMI Calculated 40.75 BSA Calculated 2.1 Physical Exam Constitutional General appearance: No acute [...] murmurs. Assessment 1. Headache (784.0) (R51) 2. Hypercholesterolemia (272.0) (E78.00) 3. Low vitamin D level (268.9) (E55.9) Plan Hypercholesterolemia 1. Atorvastatin Calcium 10 MG Oral Tablet (Rosuvastatin Calcium); TAKE 1 TABLET BY MOUTH EVERY DAY Rx By: Miguel Ángel Olea; Dispense: 0 Days ; #:1 X 90 Tablet Bottle; Refill: 2; For: Hypercholesterolemia; MARY = N; Sent To: [facility] 2. Compr Metabolic Prof ( CMP ); Status:Hold For - Manual Activation; Requested for:25Oct2016; Perform:[facility]; Due:[id number];Ordered; For:Hypercholesterolemia; Ordered By:Miguel Ángel Olea; 3. Lipid Profile; Status:Hold For - Manual Activation; Requested for:25Oct2016; Perform:[facility]; Due:[id number];Ordered; For:Hypercholesterolemia; Ordered By:Miguel Ángel Olea; Low vitamin D level 4. Ergocalciferol 70311 UNIT Oral Capsule; TAKE 1 CAPSULE WEEKLY Rx By: Miguel Ángel Olea; Dispense: 0 Days ; #:12 Capsule; Refill: 3; For: Low vitamin D level; MARY = N; Sent To: [facility] 5. Vitamin D 25 - Hydroxy; Status:Hold For - Manual Activation; Requested for:25Oct2016; Perform:[facility]; Due:[id number];Ordered; For:Low vitamin D level; Ordered By:Miguel Ángel Olea; Discussion/Summary A&P 1- Low Vit D: Stable. continue current care 2- HPL: Stable. continue current care 3- Headache: Stable. continue current care f/u 3 months with labs Signatures Electronically signed by : Miguel Ángel Olea M.D.; Jul 25 2016 9:00AM CHAR FILTER OPERATOR HELPER (Author) documented in this encounter Plan of Treatment Not on file documented as of this encounter Visit Diagnoses Not on filedocumented in this encounter Care Teams Mold Cleaning And Storage Supervisor Relationship Specialty Start Date End Date Miguel Ángel Olea MD [address] [address] PCP - General FAMILY PRACTICE 07/16/16 documented as of this encounter
--- OUTSIDE RECORDS SUMMARY | 2024-05-29 17:27 | XMS_ITS | Encounter Summary ---
Author Organization [facility] Address [address] [place] [address]. [place] [address] [place] [address] Care Team Providers Care Drainman Name Role Phone Miguel Ángel Olea MD Primary Care Provider [phone] Reason for Visit * Auth/Cert Specialty Diagnoses / Procedures Referred By Contac t Referred To Contact Diagnoses BRIGHT RED BLOOD PER RECTUM, BLOOD IN STOOL Procedures COLONOSCOPY Referral ID Status Reason Start Date Expiration Date Visits Re quested Visits Authorized [id number] 1 1 Encounter Details Date Type Department Care Team (Late st Contact Info) Description 04/29/2017 9:58 AM PAYABLE PROCESSOR Anesthesia Event [place] [place], [place] [address] Barry Rodriguez MD [address] [facility] [address] [place] [address] Anesthesia Record Procedure Summary Procedure Name Responsible Anesthesiologist Anesthesia Start Time Anesthesia Stop Time COLONOSCOPY Barry Rodriguez MD 04/29/17 0958 04/29/17 10 28 Events Date Time Event Comment 04/29/2017 0935 0935 AN Anesthesia Prepped 0944 AN CHARGEMASTER SPECIALIST Prepped 0958 An Start Patient ID and consent checked and patient reassessed. 0958 An Start Data 1002 Nasal Cannula Applied 1002 Anesthesia Ready 1027 Nasal Cannula Removed 1027 an stop data 1028 Post Anesthetic Care Handoff I completed my handoff to the receiving nurse during which we: 1. Identified the patient 2. Identified the responsible provider 3. Reviewed the pertinent medical history 4. Discussed the surgical course 5. Reviewed intra-op anesthesia management and issues during anesthesia 6. Set expectations for post-procedure period 7. Allowed opportunity for questions and acknowledgement of understanding. 1028 An Stop Meds Name Total lidocaine (PF) (XYLOCAINE) 2% injection 50 mg propofol (DIPRIVAN) 200 mg/20 mL injecti on 300 mg glycopyrrolate (ROBINUL) injection 0.2 m g lactated ringers infusion 350 mL * Agents Name O2 N2O Air * Blood No blood administrations on file. Lines, Drains, and Airways Type Details Placement Removal Peripheral IV Placement Date: 04/17 08/01; Placement Time: 946; Placed Outside of This Facility?: No; Size: 22 G; Orientation: Left; Location: Hand; Site Prep: Chlorhexidine; Local Anesthetic: None; Insertion attempts: 3; Ultrasound-guided Placement?: No; Patient Tolerance: Tolerated well; Removal Date: 02/02/18 (Removed by LDA Completion Utility); Removal Time: 918 (Removed by LDA Completion Utility) 04/29/17 09 by Elmo Hernandez RN 02/02/18918 by Nurse JUANJO Baird documented in this encounter Social History Tobacco [...] on file documented as of this encounter OR Notes * Anesthesia Postprocedure Evaluation - Barry Rodriguez MD - 04/29/2017 2:13 PM CST Anesthesia Post-op Note Renata Lei Procedure(s): COLONOSCOPY (N/A ) Anesthesia type: general Vitals: 04/29/17 1050 BP: 103/72 Pulse: 66 Resp: 19 Temp: SpO2: 98% Patient Location: PACU Level of Consciousness: awake Pain Management: adequate analgesia Airway Patency: patent Respiratory Status: acceptable Cardiovascular Status: acceptable Post-Op Nausea: none Postoperative Hydration: euvolemic Complications: no anesthesia complication BLE PROCESSOR * Anesthesia Preprocedure Evaluation - Barry Rodriguez MD - 04/29/2017 9:30 AM CST Anesthesia ROS/MED History Reviewed: Patient summary , Nursing notes , ECG, Family history anesthesia, Anesthesia history , Medications , Labs , Images/Studies Pre-Anesthetic State: alert, awake and responds appropriately Pulmonary (+) smoker (1/2 PPD) ROS comment: Chronic allergies Cardiovascular Exercise tolerance:good ROS comment: Hypercholesterolemia Neuro/Psych (+) headaches GI/Hepatic/Renal (+) GERD ( only) Endo/Other (+) obese, (Morbid), arthritis GENERAL COMMENTS No Known Allergies Past Medical History: 03/2017: Migraine No date: S/P debridement Comment: I & D left upper thigh with debridement Past Surgical History: 2005: ABDOMINAL SURGERY Comment: tyree mcclellan 1997: JOINT REPLACEMENT Left Comment: left knee replacement Physical Evaluation Airway Mallampati: II Neck ROM: normal Dental Pulmonary Pulmonary exam normal Breath sounds clear to auscultation Cardiovascular Rhythm: regular Cardiovascular exam normal Other findings: Blood pressure 116/69, pulse 73, temperature 37.1 ??C, temperature source Temporal,resp. rate 17, height 5' 4 (1.626 m), weight 97.5 kg (215 lb), SpO2 94 %. No results for input(s): WBC, RBC, HGB, HCT, PLT, NA, K, CL, CO2, AGAP, BUN, CR, BUNCREATININ, GFRNON, GFR, GLU, CA in the last 72 hours. Anesthesia Plan ASA 3 Intravenous Induction Anesthesia type: general Discussed potential risks of General Anesthesia including but not limited to corneal abrasion, visual impairment or visual loss, mouth injury, dental damage, sore throat, hoarseness, esophageal injury, awareness under anesthesia, nerve injury due to positioning, aspiration, pneumonia, stroke, cardiac event, adverse drug reactions and . Tiva anesthetic planned and discussed. Possible GA as needed. Informed Consent Anesthetic plan and risks discussed with patient of whom consent was obtained. . BLE PROCESSOR documented in this encounter Plan of Treatment Not on file documented as of this encounter Visit Diagnoses Not on filedocumented in this encounter Administered Medications Inactive Administered Medications - up to 3 most recent administrations Medication Order MAR Action Action Date Dose Rate Site glycopyrrolate (ROBINUL) injection Intravenous, PRN, Starting on Thu04/29/17 at 1008, Until Thu04/29/17 at 1028, Anesthesia Intra-Op Given 04/29/2017 10:08 AM PAYABLE PROCESSOR 0.2 mg lactated ringers infusion at 10 mL/hr, Intravenous, Continuous, Starting on Thu04/29/17 at 1000, Until Thu04/29/17 at 1316, Infuse at TKO rate, Pre-Op New Bag 04/29/2017 10:01 AM PAYABLE PROCESSOR lidocaine (PF) (XYLOCAINE) 2 % injection Intravenous, PRN, Starting on Thu04/29/17 at 1004, Until Thu04/29/17 at 1028, Anesthesia Intra-Op Given 04/29/2017 10:04 AM PAYABLE PROCESSOR 50 mg propofol (DIPRIVAN) IV bolus Intravenous, PRN, Starting on Thu04/29/17 at 1004, Until Thu04/29/17 at 1028, Anesthesia Intra-Op Given 04/29/2017 10:20 AM PAYABLE PROCESSOR 25 mg Given 04/29/2017 10:17 AM PAYABLE PROCESSOR 25 mg Given 04/29/2017 10:14 AM PAYABLE PROCESSOR 25 mg documented in this encounter Care Teams Drainman Relationship Specialty Start Date End Date Miguel Ángel Olea MD [address] [address] PCP - General FAMILY PRACTICE 07/16/16 documented as of this encounter
--- OUTSIDE RECORDS SUMMARY | 2024-05-29 17:27 | XMS_ITS | Encounter Summary ---
Author Organization [facility] Address [address] [place] [address]. [place], [place] [address] [place] [address] Care Team Providers Care Continuous Process Tanner Rotary Drum Name Role Phone Jun Ivey MD Primary Care Provider Miguel Ángel Balkely MD Primary Care Provider [phone] Encounter Details Date Type Department Care Team (Latest Contact Info) Description 10/24/2015 Abstract [facility] Social [...] on filedocumented in this encounter Care Teams Continuous Process Tanner Rotary Drum Relationship Specialty Start Date End Date Jun Ivey MD PCP - General 07/06/15 07/15/16 Miguel Ángel Olea MD [address] [place] [address] PCP - General FAMILY PRACTICE 07/16/16 documented as of this encounter
--- OUTSIDE RECORDS SUMMARY | 2024-05-29 17:27 | XMS_ITS | Encounter Summary ---
Author Organization [facility] Address [address] [place] [address]. [place], [place] [address] [place] [address] Care Team Providers Care Bottle Packer Name Role Phone Jun Ivey MD Primary Care Provider Miguel Ángel Blakely MD Primary Care Provider [phone] Encounter Details Date Type Department Care Team (Latest Contact Info) Description 07/16/2015 Abstract [facility] Social History Tobacco Use Types [...] on filedocumented in this encounter Care Teams Bottle Packer Relationship Specialty Start Date End Date Jun Ivey MD PCP - General 07/06/15 07/15/16 Miguel Ángel Olea MD [address] [place] [address] PCP - General FAMILY PRACTICE 07/16/16 documented as of this encounter
--- OUTSIDE RECORDS SUMMARY | 2024-05-29 17:27 | XMS_ITS | Encounter Summary ---
Author Organization [facility] Address [address] [place] [address]. [place], [place] [address] [place] [address] Care Team Providers Care Attractions Associate Name Role Phone Jun Ivey MD Primary Care Provider Jun Long MD Primary Care Provider Jun Long MD Primary Care Provider Jun Long MD Primary Care Provider Jun Long MD Primary Care Provider UnavailJun Larios MD Primary Care Provider Unavailrosalinda yap Md, Nav Simpson MD Primary Care Provider Unavailable Dot Shultz DO Primary Care Provider Miguel Ángel Olea MD Primary Care Provider Encounter Details Date Type Department Care Team (Late st Contact Info) Description 09/06/1999 Emergency [facility] Emergency [place], [place] [address] June English, [address] [place], [place] [address] Social History Tobacco Use Types Packs/Day Years [...] on filedocumented in this encounter Care Teams Attractions Associate Relationship Specialty Start Date End Date Jun Ivey MD PCP - General 07/06/15 07/15/16 Jun Ivey MD PCP - General 07/02/15 07/05/15 Jun Ivey MD PCP - General 06/29/15 07/01/15 Jun Ivey MD PCP - General 06/25/15 06/28/15 Jun Ivey MD PCP - General 06/22/15 06/24/15 Jun Ivey MD PCP - General 06/18/15 06/21/15 Nav Wadd[place] MD PCP - General 07/23/11 Dot Shultz DO [address] [place], [place] [id number] PCP - General 01/24/11 07/22/11 Miguel Ángel Olea MD [address] [facility] [address] [place], [place] [id number] PCP - General FAMILY PRACTICE 07/16/16 documented as of this encounter
--- OUTSIDE RECORDS SUMMARY | 2024-05-29 17:27 | XMS_ITS | Encounter Summary ---
Author Organization [facility] Address [address] [place] [address]. [place], [place] [address] [place] [address] Care Team Providers Care Deadener Name Role Phone Miguel Ángel Olea MD Primary Care Provider [phone] Encounter Details Date Type Department Care Team (Late st Contact Info) Description 04/17/2017 Abstract [facility] Multispecialty Care - [facility] [address] [facility], [address] [place] [address] Pancho Jackson MD [address] [place] [address] Social History Tobacco Use Types Packs/Day Years Used Date Smoking Tobacco: Never Assessed Comments Unknown Sex and Gender Information Value Date Recorded Sex Assigned at Not on file Legal Sex Female 5:36 PM CDT Gender Identity Not on file Sexual Orientation Not on file documented as of this encounter Last Filed Vital Signs Vital Sign Reading Time Taken Comments Blood Pressure 126/82 04/17/2017 8:46 AM INFORMATION SYSTEMS SECURITY ANALYST Pulse 72 04/17/2017 8:46 AM INFORMATION SYSTEMS SECURITY ANALYST Temperature - - Respiratory Rate - - Oxygen Saturation - - Inhaled Oxygen Concentration - - Weight 98 kg (216 lb) 04/17/2017 8:46 AM INFORMATION SYSTEMS SECURITY ANALYST Height 162.6 cm (5' 4 ) 04/17/2017 8:46 AM INFORMATION SYSTEMS SECURITY ANALYST Body Mass Index 37.08 04/17/2017 8:46 AM INFORMATION SYSTEMS SECURITY ANALYST documented in this encounter Progress Notes * Pancho Jackson MD - 04/17/2017 8:40 AM CST Referred By / Reason rectal bleeding Chief [...] PCL (posterior cruciate ligament) of knee (844.2) (S83.079A) Surgical History 1. History of Cholecystectomy Laparoscopic ?? dr. seth rg Md 2. History of Decompress Fasciotomy Mult Compartments Of Thigh, Debridemen ?? puncure rebarb left thigh debrided and surgerical treated by Dr. Seth Rg General Surgeon. 3. History of Knee Surgery Left ?? LEFT KNEE MENISCAL TEAR, ACL/PCL TEAR, DONE AT [facility] IN [place] Family History Mother 1. Family history of fibromyalgia (V17.89) (Z82.69) Father 2. Family history of deep venous thrombosis (V17.49) (Z82.49) 3. Family history of diabetes mellitus (V18.0) (Z83.3) Paternal Grandmother 4. Family history of diabetes mellitus (V18.0) (Z83.3) 5. Family history of lung cancer (V16.1) (Z80.1) ?? grandmother - smoker grandfather - non smoker. truck switcher. Paternal Grandfather 6. Family history of diabetes mellitus (V18.0) (Z83.3) 7. Family history of lung cancer (V16.1) (Z80.1) ?? grandmother - smoker grandfather - non smoker. truck switcher. Aunt 8. Family history of Breast cancer, [...] Refill: 2; For: Hypercholesterolemia; MARY = N; Verified Transmission to [facility]; Last Updated By: [employer]; 07/25/2016 9:00:35 AM 2. Cetirizine HCl - 10 MG Oral Tablet; TAKE ONE TABLET BY MOUTH ONCE DAILY DIRECTED; Therapy: [id number] to (Evaluate:39Lvw2438) Requested for: [id number]; Last Rx:27Jan2017 Ordered Rx By: Miguel Ángel Olea; Dispense: 30 Days ; #:30 TAB; Refill: 2; For: Allergic rhinitis; MARY = N; Verified Transmission to [facility]; Last Updated By: [employer]; 01/27/2017 8:00:08AM 3. Ergocalciferol 93410 UNIT CAPS; TAKE 1 CAPSULE WEEKLY; Therapy: 25Jul2016 to (Last Rx:25Jul2016) Requested for: 25Jul2016 Ordered Rx By: Miguel Ángel Olea; Dispense: 0 Days ; #:12 Capsule; Refill: 3; For: Low vitamin D level; MARY = N; Verified Transmission to [facility]; Last Updated By: [employer]; 07/25/2016 9:00:35 AM 4. Stool Softener CAPS; TAKE CAPSULE PRN; Therapy: (Recorded:[id number]) to Recorded Dispense: 0 Days ; #: Sufficient Capsule; Refill: 0; MARY = N; Record; Last Updated By: Yulia Marin; 04/17/2017 8:46:45 AM 5. Topiramate 100 MG Oral Tablet; TAKE 1 TABLET TWICE DAILY; Therapy: 17Jul2016 to (Evaluate:12Nov2017) Requested for: 27Lge8014; Last Rx:[id number] Ordered Rx By: Miguel Ángel Olea; Dispense: 30 Days ; #:60 Tablet; Refill: 11; For: Headache; MARY = N; Sent To:[facility] Allergies 1. No Known Drug Allergies Recorded By: Amish Connor; 06/14/2015 1:55:45 PM Vitals Recorded: 83Evr6712 08:46AM Heart Rate 72 Systolic 126 Diastolic [...] oriented x 3 Results/Data LC-CBC/Diff Ambiguous Default [id number] 17Jul2016 09:38AM Miguel Ángel Olea Test Name [...] have assigned CBC with Differential/Platelet, Test Code #[id number] to this request. If this is not the testing you wished to receive on this specimen, please contact the [facility] Client Inquiry/ Technical Services Department to clarify the test order. We appreciate your business. LC-Comp. Metabolic Panel ( CMP ) [id number] 09:38AM Miguel Ángel Olea Test Name Result [...] Pancho Jackson MD; Apr 17 2017 9:37AM INFORMATION SYSTEMS SECURITY ANALYST (Author) documented in this encounter Plan of Treatment Not on file documented as of this encounter Visit Diagnoses Not on filedocumented in this encounter Care Teams Deadener Relationship Specialty Start Date End Date Miguel Ángel Olea MD [address], [place] [id number] PCP - General FAMILY PRACTICE 07/16/16 documented as of this encounter
--- OUTSIDE RECORDS SUMMARY | 2024-05-29 17:27 | XMS_ITS | Encounter Summary ---
Author Organization [facility] Address [address] [place] [address]. [place], [place] [address] [place] [address] Care Team Providers Care High School Music Director Name Role Phone Miguel Ángel Olea MD Primary Care Provider [phone] Encounter Details Date Type Department Care Team (Latest Contact Info) Description 06/25/2017 Abstract [facility] Social History Tobacco Use Types [...] on filedocumented in this encounter Care Teams High School Music Director Relationship Specialty Start Date End Date Miguel Ángel Olea MD [address] [place] [address] PCP - General FAMILY PRACTICE 07/16/16 documented as of this encounter
--- OUTSIDE RECORDS SUMMARY | 2024-05-29 17:27 | XMS_ITS | Encounter Summary ---
Author Organization [facility] Address [address] [place] [address]. [place], [place] [address] [place] [address] Care Team Providers Care Laboratory Sampler Name Role Phone Miguel Ángel Olea MD Primary Care Provider [phone] Encounter Details Date Type Department Care Team (Late st Contact Info) Description 01/22/2017 Abstract [facility] Family Medicine - [place] [id number] [facility], [address] [place] [address] Miguel Ángel Olea MD [address] [place] [address] [address] [place] [address] Social History Tobacco Use Types Packs/Day Years Used Date Smoking Tobacco: Never Assessed Comments Unknown Sex and Gender Information Value Date Recorded Sex Assigned at Not on file Legal Sex Female 5:36 PM CDT Gender Identity Not on file Sexual Orientation Not on file documented as of this encounter Last Filed Vital Signs Vital Sign Reading Time Taken Comments Blood Pressure 124/70 01/22/2017 11:20 AM CDT Pulse 79 01/22/2017 11:20 AM CDT Temperature - - Respiratory Rate - - Oxygen Saturation - - Inhaled Oxygen Concentration - - Weight 99.2 kg (218 lb 12.8 oz) 017 11:20 AM CDT Height - - Body Mass Index 37.56 12/18/2016 11:33 AM CDT documented in this encounter Progress Notes * Miguel Ángel Olea MD - 01/22/2017 11:20 AM CDT Chief Complaint Refill phentermine and hemorrhoids that are bleeding and painful History of Present Illness HPI Free Text: 36 yo WAF for f/u c/o hemorrhoids, been bleeding for 3 months. patient knows it is hemorrhoids. Review of Systems Constitutional: no fever, not feeling poorly and no headache. ENT: no earache and no hearing loss. Cardiovascular: the heart rate was not slow and the heart rate was not fast. Respiratory: no shortness of breath and no wheezing. Gastrointestinal: no abdominal pain and no constipation. Active Problems 1. Allergic rhinitis (477.9) (J30.9) 2. Headache (784.0) (R51) 3. Hypercholesterolemia (272.0) (E78.00) 4. Knee pain, left (719.46) (M25.562) 5. Low vitamin D level (268.9) (E55.9) 6. Overweight (278.02) (E66.3) 7. Sinusitis (473.9) (J32.9) Past Medical History 1. [...] KNEE MENISCAL TEAR, ACL/PCL TEAR, DONE AT [facility] IN [place] Family History Father 1. Family history of [...] (Last Rx:25Jul2016) Requested for: 25Jul2016 Ordered 2. Yemmbewlea-XFDF-Iekbzvqt 50-325-40 MG Oral Tablet; TAKE ONE TO TWO TABLETS BY MOUTH EVERY 4 TO 6 HOURS NEEDED FOR PAIN; Therapy: 10Oct2016 to (Evaluate:14Oct2016) Requested for: 11Nov2016; Last Rx:11Nov2016 Ordered 3. Ergocalciferol 25720 UNIT Oral Capsule; TAKE 1 CAPSULE WEEKLY; Therapy: 25Jul2016 to (Last Rx:25Jul2016) Requested for: 25Jul2016 Ordered 4. Phentermine HCl - 15 MG Oral Capsule; TAKE 1 CAPSULE EVERY MORNING BEFORE BREAKFAST; Therapy: 10Oct2016 to (Evaluate:17Jan2017); Last Rx:[id number] Ordered 5. Topiramate 100 MG Oral Tablet; TAKE 1 TABLET TWICE DAILY; Therapy: 17Jul2016 to (Evaluate:12Nov2017) Requested for: [id number]; Last Rx:[id number] Ordered 6. Topiramate 50 MG Oral Tablet; TAKE 1 TABLET BY TWICE DAILY; Therapy: 10Oct2016 to (Last Rx:[id number]) Requested for: [id number] Ordered 7. ZyrTEC Allergy 10 MG Oral Tablet; TAKE 1 TABLET DAILY DIRECTED; Therapy: 16Jul2016 to (Evaluate:[id number]) Requested for: [id number]; Last Rx:[id number] Ordered Allergies 1. No Known Drug Allergies Vitals Recorded: 22Jan2017 11:20AM Heart Rate 79 Systolic 124 Diastolic 70 O2 Saturation 98 Weight 218 lb 12.8 oz BMI Calculated 37.56 BSA Calculated 2.03 Physical Exam Constitutional General appearance: No acute [...] Abdomen Abdomen: Non-tender, no masses. Assessment 1. Hemorrhoids (455.6) (K64.9) 2. Overweight (278.02) (E66.3) Plan Hemorrhoids 1. Hydrocortisone Acetate 25 MG Rectal Suppository; Insert one suppository rectally once daily for two weeks Rx By: Miguel Ángel Olea; Dispense: 0 Days ; #:14 EA; Refill: 0; For: Hemorrhoids; MARY = N; Sent To: [facility] 361 2. Gastroenterology Referral Outpatient family Hx of colon cancer Status: Need Information - Financial Authorization Requested for: [id number] Ordered; For: Hemorrhoids; Ordered By: Miguel Ángel Olea Performed: Due: [id number] Overweight 3. Phentermine HCl - 15 MG Oral Capsule; TAKE 1 CAPSULE EVERY MORNING BEFORE BREAKFAST Rx By: Miguel Ángel Olea; Dispense: 30 Days ; #:30 Capsule; Refill: 0; For: Overweight; MARY = N; Print Rx 4. CBC W Differential; Status:Hold For - Manual Activation; Requested for:[id number]; Perform:[facility]; Due:21Feb2017;Ordered; For:Overweight; Ordered By:Miguel Ángel Olea; Discussion/Summary A&P 1- Hemorrhoids: exacerbation. meds given 2- weight management: stable. continue current care 3- FH of colon cancer: will get colonoscopy f/u 2 days by phone for lab results Signatures Electronically signed by : Miguel Ángel Olea M.D.; Jan 22 2017 11:31AM MASSAGE THERAPIST (Author) documented in this encounter Plan of Treatment Not on file documented as of this encounter Visit Diagnoses Not on filedocumented in this encounter Care Teams Laboratory Sampler Relationship Specialty Start Date End Date Miguel Ángel Olea MD [address] [address] PCP - General FAMILY PRACTICE 07/16/16 documented as of this encounter
--- OUTSIDE RECORDS SUMMARY | 2024-05-29 17:27 | XMS_ITS | Encounter Summary ---
Author Organization [facility] Address [address] [place] [address]. [place], [place] [address] [place] [address] Care Team Providers Care Casting Sorter Name Role Phone Jun Ivey MD Primary Care Provider Vamsi Miguel Ángel Pinon MD Primary Care Provider [phone] Encounter Details Date Type Department Care Team (Late st Contact Info) Description 07/06/2015 Abstract [facility] Physical Therapy [address] [place] [address] Jun Ivey MD Social History Tobacco Use Types Packs/Day [...] as of this encounter Visit Diagnoses Diagnosis Pain in left knee Pain in joint, lower leg documented in this encounter Care Teams Casting Sorter Relationship Specialty Start Date End Date Jun Ivey MD PCP - General 07/06/15 07/15/16 Miguel Ángel Olea MD [address] [facility] 200 [place], [place] [id number] PCP - General FAMILY PRACTICE 07/16/16 documented as of this encounter
--- OUTSIDE RECORDS SUMMARY | 2024-05-29 17:27 | XMS_ITS | Encounter Summary ---
Author Organization [facility] Address [address] [place] [address]. [place], [place] [address] [place] [address] Care Team Providers Care Sample Case Porter Name Role Phone Miguel Ángel Olea MD Primary Care Provider [phone] Encounter Details Date Type Department Care Team (Latest Contact Info) Description 04/21/2017 Abstract [facility] Medical Group Social History Tobacco Use [...] on filedocumented in this encounter Care Teams Sample Case Porter Relationship Specialty Start Date End Date Miguel Ángel Olea MD [address] [address] PCP - General FAMILY PRACTICE 07/16/16 documented as of this encounter
--- OUTSIDE RECORDS SUMMARY | 2024-05-29 17:27 | XMS_ITS | Encounter Summary ---
Author Organization [facility] Address [address] [place] [address]. [place], [place] [address] [place] [address] Care Team Providers Care Sap Abap Developer Name Role Phone Jun Ivey MD Primary Care Provider Jun Long MD Primary Care Provider Jun Long MD Primary Care Provider Jun Long MD Primary Care Provider Jun Long MD Primary Care Provider Jun Long MD Primary Care Provider Nav Mohamud Md, MD Primary Care Provider Unavailable Miguel Ángel Olea MD Primary Care Provider [phone] Encounter Details Date Type Department Care Team (Late st Contact Info) Description 07/23/[address] [facility] [address] [place] [address] Nav Waddell MD Social History Tobacco Use [...] of this encounter Visit Diagnoses Diagnosis Acute tonsillitis documented in this encounter Care Teams Sap Abap Developer Relationship Specialty Start Date End Date Jun [...] General 07/23/11 Miguel Ángel Olea MD [address] [address] PCP - General FAMILY PRACTICE 07/16/16 documented as of this encounter
--- OUTSIDE RECORDS SUMMARY | 2024-05-29 17:27 | XMS_ITS | Encounter Summary ---
Author Organization [facility] Address [address] [place] [address]. [place], [place] [address] [place] [address] Care Team Providers Care Check Totaler Name Role Phone Jun Ivey MD Primary Care Provider Jun Long MD Primary Care Provider Jun Long MD Primary Care Provider Jun Long MD Primary Care Provider Jun Long MD Primary Care Provider Jun Long MD Primary Care Provider Nav Mohamud Md, MD Primary Care Provider Unavailable Miguel Ángel Olea MD Primary Care Provider [phone] Encounter Details Date Type Department Care Team (Latest Contact Info) Description 07/06/2014 Abstract [facility] Medical Group Social History Tobacco [...] on filedocumented in this encounter Care Teams Check Totaler Relationship Specialty Start Date End Date Jun [...] General 07/23/11 Miguel Ángel Olea MD [address] [address] PCP - General FAMILY PRACTICE 07/16/16 documented as of this encounter
--- OUTSIDE RECORDS SUMMARY | 2024-05-29 17:27 | XMS_ITS | Encounter Summary ---
Author Organization [facility] Address [address] [place] [address]. [place], [place] [address] [place] [address] Care Team Providers Care Power Saw Operator Name Role Phone Miguel Ángel Olea MD Primary Care Provider [phone] Encounter Details Date Type Department Care Team (Late st Contact Info) Description 12/18/2016 Abstract [facility] Family Medicine - [place] [address] [facility], [address] [place] [address] Miguel Ángel Olea MD [address] [place] [address] [address] [place] [address] Social History Tobacco Use Types Packs/Day Years Used Date Smoking Tobacco: Never Assessed Comments Unknown Sex and Gender Information Value Date Recorded Sex Assigned at Not on file Legal Sex Female 5:36 PM CDT Gender Identity Not on file Sexual Orientation Not on file documented as of this encounter Last Filed Vital Signs Vital Sign Reading Time Taken Comments Blood Pressure 118/68 12/18/2016 11:33 AM CDT Pulse - - Temperature - - Respiratory Rate - - Oxygen Saturation - - Inhaled Oxygen Concentration - - Weight 100.7 kg (222 lb) 12/18/2016 11:33 AM CDT Height 162.6 cm (5' 4 ) 12/18/2016 11:33 AM CDT Body Mass Index 38.11 12/18/2016 11:33 AM CDT documented in this encounter Progress Notes * Miguel Ángel Olea MD - 12/18/2016 11:40 AM CDT Referred By / Reason Sore throat and ears History of Present Illness HPI Free Text: 36 yo WAF for f/u on acute sinusitis. no improvments Review of Systems Constitutional: headache, but no fever and not feeling poorly. ENT: no earache, no [...] level (268.9) (E55.9) 6. Overweight (278.02) (E66.3) Past Medical History 1. History of ACL [...] MENISCAL TEAR, ACL/PCL TEAR, DONE AT [facility] IN [place] Family History Father 1. Family history of [...] (Last Rx:25Jul2016) Requested for: 25Jul2016 Ordered 2. Whdhwbxihj-LEZC-Scxaqbxg 50-325-40 MG Oral Capsule; TAKE 1 TO 2 CAPSULES EVERY 4 TO 6 HOURS NEEDED FOR PAIN; Therapy: 16Jul2016 to (Evaluate:20Jul2016); Last Rx:16Jul2016 Ordered 3. Ktksoollzq-UGIW-Njxbvuoe 50-325-40 MG Oral Tablet; TAKE ONE TO TWO TABLETS BY MOUTH EVERY 4 TO 6 HOURS NEEDED FOR PAIN; Therapy: 10Oct2016 to (Evaluate:[id number]) Requested for: 11Nov2016; Last Rx:11Nov2016 Ordered 4. Cetirizine HCl - 10 MG Oral Tablet; TAKE ONE TABLET BY MOUTH ONCE DAILY DIRECTED; Therapy: 01Sep2016 to (Evaluate:[id number]) Requested for: [id number]; Last Rx:01Sep2016 Ordered 5. Ergocalciferol 14160 UNIT Oral Capsule; TAKE 1 CAPSULE WEEKLY; Therapy: 25Jul2016 to (Last Rx:25Jul2016) Requested for: 25Jul2016 Ordered 6. Phentermine HCl - 15 MG Oral Capsule; TAKE 1 CAPSULE EVERY MORNING BEFORE BREAKFAST; Therapy: 10Oct2016 to (Evaluate:[id number]); Last Rx:[id number] Ordered 7. PredniSONE 10 MG Oral Tablet; TAKE 6 TABLETS TODAY, THEN DECREASE BY 1 TABLET EACH DAY UNTIL GONE; Therapy: 10Oct2016 to (Last Rx:10Oct2016) Requested for: 10Oct2016 Ordered 8. Topiramate 100 MG Oral Tablet; TAKE 1 TABLET TWICE DAILY; Therapy: 17Jul2016 to (Evaluate:12Nov2017) Requested for: [id number]; Last Rx:[id number] Ordered 9. Topiramate 50 MG Oral Tablet; [...] 1. No Known Drug Allergies Vitals Recorded: 18Dec2016 11:33AM Systolic 118 Diastolic 68 Height 5 ft 4 in Weight 222 lb BMI Calculated 38.11 BSA Calculated 2.04 Physical Exam Constitutional General [...] Abdomen Abdomen: Non-tender, no masses. Assessment 1. Sinusitis (473.9) (J32.9) Plan Sinusitis 1. Azithromycin 250 MG Oral Tablet; TAKE 2 TABLETS ON DAY 1 THEN TAKE 1 TABLET A DAY FOR 4 DAYS Rx By: Miguel Ángel Olea; Dispense: 0 Days ; #:1 X 6 Tablet Bottle; Refill: 0; For: Sinusitis; MARY = N;Sent To: [facility] 361 2. PredniSONE 10 MG Oral Tablet; TAKE 6 TABLETS TODAY, THEN DECREASE BY 1 TABLET EACH DAY UNTIL GONE Rx By: Miguel Ángel Olea; Dispense: 0 Days ; #:21 Tablet; Refill: 0; For: Sinusitis; MARY = N; Sent To: [facility] 361 Discussion/Summary A&P 1- Acute sinusitis: stable. continue current care f/u prn Signatures Electronically signed by : Miguel Ángel Olea M.D.; Dec 18 2016 11:46AM CLAIM INSPECTOR (Author) documented in this encounter Plan of Treatment Not on file documented as of this encounter Visit Diagnoses Not on filedocumented in this encounter Care Teams Power Saw Operator Relationship Specialty Start Date End Date Miguel Ángel Olea MD [address] [address] PCP - General FAMILY PRACTICE 07/16/16 documented as of this encounter
--- OUTSIDE RECORDS SUMMARY | 2024-05-29 17:27 | XMS_ITS | Encounter Summary ---
Author Organization [facility] Address [address] [place] [address]. [place], [place] [address] [place] [address] Care Team Providers Care Infusion Therapy Nurse Name Role Phone Jun Ivey MD Primary Care Provider Jun Long MD Primary Care Provider Jun Long MD Primary Care Provider Jun Long MD Primary Care Provider Jun Long MD Primary Care Provider Miguel Ángel Blakely MD Primary Care Provider [phone] Encounter Details Date Type Department Care Team (Late st Contact Info) Description 06/22/2015 Abstract [facility] [place] [address] Jun Ivey MD Social History Tobacco Use [...] Comments HEMOGLOBIN, GLYCOSYLATED Routine 06/22/2015 9:52 AM CUT PRESSMAN AST/SGOT Routine 06/22/2015 9:52 AM CUT PRESSMAN BASIC METABOLIC PANEL Routine 06/22/2015 9:52 AM CUT PRESSMAN LIPID PANEL Routine 06/22/2015 9:52 AM CUT PRESSMAN ALT/SGPT Routine 06/22/2015 9:52 AM CUT PRESSMAN documented in this encounter Results * (ABNORMAL) LIPID PANEL (06/22/2015 9:52 AM CUT PRESSMAN) LIPID INTERPRETATION 06/22/2015 4:26 PM CUT PRESSMAN [facility] Comment: NIH CONCENSUS REPORT RECOMMENDATIONS: ?ADULT ?CHILD ??LOW RISK: ?CHOLESTEROL ? <200 ? <170 ?TRIGLYCERIDE ?<150 ?--- ?HDL ? >=60 ?--- ?LDL ? <100 ? <110 ??BORDERLINE: ?CHOLESTEROL ? 200-239 ?? 170-199 ?TRIGLYCERIDE ?150-199 ? --- ?HDL ?40-59 ?--- ?LDL ? 100-159 ?? 110-129 ??HIGH RISK: ?CHOLESTEROL ? >=240 ?>=200 ?TRIGLYCERIDE ?>=200 ? --- ?HDL ?<40 ?--- ?LDL ? >=160 ?>=130 CHOL/HDL RATIO 5.8(H) 0.0 - 4.5 06/22/2015 4:26 PM [facility] CHOLESTEROL 226(H) <200 mg/dL 06/22/2015 4:26 PM [facility] Comment: NOTE: Acetaminophen, N Acetyl p benzoquinone imine (NAPQI), N acetylcysteine (NAC), Metamizole, 4 Aminoantipyrine (4 AAP) and 4 Methylamino antipyrine (4 MAP) at high concentrations can cause falsely low results on Lactate, Uric Acid, Cholesterol, Triglyceride, HDL, and Direct LDL. HDL 39(L) >59 mg/dL 06/22/2015 4:26 PM [facility] DIRECT LDL 164(H) <100 mg/dL 06/22/2015 4:26 PM [facility] NON HDL CHOLESTEROL 187(H) <130 mg/dL 06/22/2015 4:26 PM [facility] Comment: NOTE: WHEN THE TRIGLYCERIDES ARE >200 mg/dL, NON HDL C IS A SECONDARY TARGET OF THERAPY, WITH A GOAL 30 mg/dL HIGHER THAN THE IDENTIFIED LDL C GOAL. TRIGLYCERIDES 115 <150 mg/dL 06/22/2015 4:26 PM [facility] VLDL CALCULATION 23 5 - 55 mg/dL 06/22/2015 4:26 PM [facility] 06/22/2015 9:52 AM CUT PRESSMAN 06/22/2015 11:01 AM CUT PRESSMAN us Generic Conversion Md [facility] Final R esult [facility] [address] [place] [address], * BASIC METABOLIC PANEL (06/22/2015 9:52 AM CUT PRESSMAN) [facility] GLUCOSE 89 70 - 99 mg/dL 06/22/2015 4:26 PM [facility] BUN 12 8 - 23 mg/dL 06/22/2015 4:26 PM [facility] CREATININE S/P/B 0.63 0.60 - 1.10 mg/dL 06/22/2015 4:26 PM [facility] SODIUM S/P/B 139 136 - 145 mmol/L 06/22/2015 4:26 PM [facility] POTASSIUM S/P/B 4.3 3.5 - 5.1 mmol/L 06/22/2015 4:26 PM [facility] CHLORIDE S/P/B 102 98 - 107 mmol/L 06/22/2015 4:26 PM [facility] CO2 25 22 - 29 mmol/L 06/22/2015 4:26 PM [facility] CALCIUM S/P/B 9.5 8.6 - 10.2 mg/dL 06/22/2015 4:26 PM [facility] ANION GAP 16 8 - 20 06/22/2015 4:26 PM [facility] EGFR NON-AFR. AMER. >60 >60 mL/min/1.7 3m'2 06/22/2015 4:26 PM [facility] EGFR AFR. AMER. >60 >60 mL/min/1.7 3m'2 06/22/2015 4:26 PM [facility] Comment: NOTE: eGFR is not calculated for patients <18 years of age. This is an estimated GFR (CKD EPI) and should not be used for calculating drug doses. 06/22/2015 9:52 AM CUT PRESSMAN 06/22/2015 11:01 AM CUT PRESSMAN us Generic Conversion Md [facility] Final R esult [facility] [address] [place] [address], [place] [phone] * AST/SGOT (06/22/2015 9:52 AM CUT PRESSMAN) AST 13 0 - 32 IU/L 06/22/2015 4:26 PM CUT PRESSMAN [facility] SERUM OR PLASMA SPECIMEN / Unknown 06/22/2015 9:52 AM CUT PRESSMAN 06/22/2015 11:01 AM CUT PRESSMAN us Generic Conversion Md [facility] Final R [facility] Performing Organization Address City/[facility]/ZIP Co de Phone Number [facility] [address] [place] [address], * ALT/SGPT (06/22/2015 9:52 AM CUT PRESSMAN) ALT 26 0 - 33 IU/L 06/22/2015 4:26 PM [facility] SERUM OR PLASMA SPECIMEN / Unknown 06/22/2015 9:52 AM CUT PRESSMAN 06/22/2015 11:01 AM CUT PRESSMAN us Generic Calvin Vaughn MD LABORATORY Final R [facility] Performing Organization Address [facility] Co de Phone Number [facility] [address] [place] [address], * HEMOGLOBIN, GLYCOSYLATED (06/22/2015 9:52 AM CUT PRESSMAN) HGB A1C 5.0 4.8 - 5.6 % 06/22/2015 3:00 PM CUT PRESSMAN [facility] Comment: ADA GUIDELINES 2010 5.7 TO 6.4% INCREASED RISK OF DIABETES > OR = 6.5% CONSISTENT WITH DIABETES ESTIMATED AVG GLUCOSE 97 mg/dL 06/22/2015 3:00 PM [facility] 06/22/2015 9:52 AM CUT PRESSMAN 06/22/2015 11:01 AM CUT PRESSMAN us Generic Conversion Md [facility] Final R esult [facility] [address] [place] [address], documented in this encounter Visit Diagnoses Diagnosis Encounter for screening for lipoid disorders Screening for lipoid disorders documented in this encounter Care Teams Infusion Therapy Nurse Relationship Specialty Start Date End Date Jun Ivey MD PCP - General 07/06/15 07/15/16 Jun Ivey MD PCP - General 07/02/15 07/05/15 Jun Ivey MD PCP - General 06/29/15 07/01/15 Jun Ivey MD PCP - General 06/25/15 06/28/15 Jun Ivey MD PCP - General 06/22/15 06/24/15 Miguel Ángel Olea MD [address] [address] PCP - General FAMILY PRACTICE 07/16/16 documented as of this encounter
--- OUTSIDE RECORDS SUMMARY | 2024-05-29 17:27 | XMS_ITS | Encounter Summary ---
Author Organization [facility] Address [address] [place] [address]. [place], [place] [address] [place] [address] Care Team Providers Care Bleaching Supervisor Name Role Phone Jun Ivey MD Primary Care Provider Jun Long MD Primary Care Provider Jun Long MD Primary Care Provider Jun Long MD Primary Care Provider Jun Long MD Primary Care Provider Jun Long MD Primary Care Provider UnavailNav rowley Md, MD Primary Care Provider Unavailable Dot Shultz DO Primary Care Provider [phone] Miguel Ángel Olea MD Primary Care Provider [phone] Encounter Details Date Type Department Care Team (Late st Contact Info) Description 01/24/[address] [facility] [address] [place], [place] [id number] Celine Bush MD [address] [place], [place] [address] Social History Tobacco Use Types Packs/Day Years [...] of this encounter Visit Diagnoses Diagnosis Chronic sinusitis Unspecified sinusitis (chronic) documented in this encounter Care Teams Bleaching Supervisor Relationship Specialty Start Date End Date [...] General 07/23/11 Dot Shultz DO [address] [place], [place] [id number] PCP - General 01/24/11 07/22/11 Miguel Ángel Olea MD [address] [facility] [address] [place], [place] [id number] PCP - General FAMILY PRACTICE 07/16/16 documented as of this encounter
--- OUTSIDE RECORDS SUMMARY | 2024-05-29 17:27 | XMS_ITS | Encounter Summary ---
Author Organization [facility] Address [address] [place] [address]. [place], [place] [address] [place] [address] Care Team Providers Care Building Trades Instructor Name Role Phone Miguel Ángel Olea MD Primary Care Provider [phone] Encounter Details Date Type Department Care Team (Latest Contact Info) Description 07/18/2016 Abstract [facility] Medical Group Social History Tobacco [...] on filedocumented in this encounter Care Teams Building Trades Instructor Relationship Specialty Start Date End Date Miguel Ángel Olea MD [address] [address] PCP - General FAMILY PRACTICE 07/16/16 documented as of this encounter
--- OUTSIDE RECORDS SUMMARY | 2024-05-29 17:29 | XMS_ITS | Encounter Summary ---
Author Organization [facility] Address [address] [place] [address] Care Team Providers Care Receiving Checker Name Role Phone Jai Guadarrama MD Primary Care Provider [phone] Encounter Details Date Type Department Care Team (Late st Contact Info) Description 07/09/2023 External Device Data [facility] ABSTRACTION Provider, Abstract NO ADDRESS ON FILE Social History Tobacco Use Types Packs/Day Years Used Date Smoking Tobacco: Former Cigarettes 0.5 15 0 10/20/2002 - 10/20/2017 Smokeless Tobacco: Never Alcohol Use Standard Drinks/Week Comments Yes 0 (1 standard drink = 0.6 oz pur e alcohol) occas Sex and Gender Information Value Date Recorded Sex Assigned at Not on file Gender Identity Not on file Sexual Orientation Not on file documented as of this encounter Plan of Treatment Not on file documented as of this encounter Visit Diagnoses Not on filedocumented in this encounter Care Teams Receiving Checker Relationship Specialty Start [place] [address] [facility] [address] [id number] PCP - General Internal Medicine 04/08/21 documented as of this encounter
--- OUTSIDE RECORDS SUMMARY | 2024-05-29 17:29 | XMS_ITS | Encounter Summary ---
Author Organization [facility] Address [address] [place] [address] Care Team Providers Care Bed And Breakfast Operator Name Role Phone Jai Guadarrama MD Primary Care Provider [phone]- [phone] Encounter Details Date Type Department Care Team (Late st Contact Info) Description 06/17/2023 External Device Data STL ABSTRACTION Provider, Abstract [...] on filedocumented in this encounter Care Teams Bed And Breakfast Operator Relationship Specialty Start [place] [id number] [facility] [address] [place] [id number] PCP - General Internal Medicine 04/08/21 documented as of this encounter
--- OUTSIDE RECORDS SUMMARY | 2024-05-29 17:29 | XMS_ITS | Encounter Summary ---
Author Organization [facility] Address [address] [place] [address] Care Team Providers Care Flowers Salesperson Name Role Phone Jai Guadarrama MD Primary Care Provider [phone]- [phone] Encounter Details Date Type Department Care Team (Late st Contact Info) Description 07/06/2023 External Device Data STL ABSTRACTION Provider, Abstract [...] on filedocumented in this encounter Care Teams Flowers Salesperson Relationship Specialty Start [place] [address] [facility] [address] [place] [phone] PCP - General Internal Medicine 04/08/21 documented as of this encounter
--- OUTSIDE RECORDS SUMMARY | 2024-05-29 17:29 | XMS_ITS | Clinical Summary ---
Author Organization [facility] Address [address] [place] [address] Phone Care Team Providers Care Ecotherapist Name Role Phone Jai Guadarrama MD Primary Care Provider +1- [phone] Allergies No known active allergies Medications Medication Sig Dispensed Refills Start Date End Date Status escitalopram oxalate (LEXAPRO) 10 mg tablet Take 10 mg by mouth daily. 12/19/2019 Active topiramate (Topamax) 200 mg tablet Take 1 Tablet (200 mg) by mouth daily. 90 Tablet 3 04/08/2021 Active nortriptyline (PAMELOR) 25 mg capsule Take 1 Capsule (25 mg) by mouth daily. 90 Capsule 3 06/24/2021 Active Additional Information Patient taking differently:25 mg OralDAILY PRN, Reported on 04/22/2022 CALCIUM CARBONATE-VITAMIN D3 ORAL Take 50,000 mg by mouth every 7 days. Active levonorgestrel (MIRENA INTRAUTERINE) by Intrauterine route. Active docusate sodium (COLACE) 100 mg capsule Take 1 Capsule (100 mg) by mouth 2 times daily. 60 Capsule 05/05/2022 Active ondansetron (ZOFRAN ODT) 4 mg Tablet, Rapid Dissolve Take 1 Tablet (4 mg) by mouth every 6 hours as needed for Nausea/Emesis. Dissolve tablet on top of tongue, then swallow with saliva. 40 Tablet 05/05/2022 Active omeprazole (PriLOSEC) 40 mg Capsule, Delayed Release(E.C.) Take 1 Capsule (40 mg) by mouth daily. Open capsule and pour contents into sugar-free jell-O or other food of similar consistency. 30 Capsule 2 05/05/2022 Active naloxone (NARCAN) 4 mg/spray [place], Non-Aerosol EMERGENCY USE ONLY: Administer 1 spray (4 mg) in one nostril one time. May repeat in alternating nostrils every 2-3 min until responsive or EMS arrives. 2 Each 3 05/06/2022 Active ciprofloxacin HCl (Cipro) 500 mg tablet Take 1 Tablet (500 mg) by mouth 2 times daily. 20 Tablet 06/06/2022 Active scopolamine (Transderm-Scop) 1 mg/72 hr patch Apply 1 Patch to skin as directed see administration instructions. 3 Patch 02/16/2023 Active cetirizine (ZyrTEC) 10 mg tablet Take 1 Tablet (10 mg) by mouth daily 90 Tablet 3 03/17/2023 Active ALPRAZolam (XANAX) 0.25 mg tabletIndications :Anxiety state Take 1 Tablet (0.25 mg) by mouth 3 times daily as needed for Anxiety. 30 Tablet 03/17/2023 Active Active Problems Problem Noted Date Diagnosed Date Carpal tunnel syndrome of right wrist 05/13/2022 Lipoma of intra-abdominal organ 05/05/2022 Anxiety 12/19/2019 Hemorrhoids 01/22/2017 Low vitamin D level 07/25/2016 Hypercholesterolemia 07/09/2015 Allergic rhinitis 06/14/2015 Migraines 12/06/1998 Resolved Problems Problem Noted Date Diagnosed Date Resolved Date Morbid obesity with body mas s index of 40.0-49.9 05/05/2022 05/22/2022 Paraesophageal hernia 05/05/20222022 Immunizations Name Administration Dates Next Due (Hexago)(12 YR UP) COVID-19 VACCINE - EMERGENCY USE AUTHORIZATION, MRNA, [id number](PF) 30 MCG/0.3 ML IM SUSP 08/16/2020,07/27/2020 Influenza Seasonal Unspecifi ed Formulation IM 02/06/2022,03/05/2021,03/05/2021,2020,06/10/2020 Family History Medical History Relation Name Comments Diabetes Father Remy Lei High Cholesterol Father Remy Lei Breast Cancer Maternal Aunt 1 x3 Ovarian Cancer Maternal Aunt 2 x2 Breast Cancer Maternal Grandmother Ovarian Cancer Maternal Grandmother Lung Cancer Paternal Grandfather Harman Lei Diabetes Paternal Grandmother Rosi Ambriz Lung Cancer Paternal Grandmother Rosi Ambriz Relation Name Status Comments Father Remy Lei Maternal Aunt 1 x3 Alive Maternal Aunt 2 x2 Alive Maternal Grandmother Paternal Grandfather Harman Lei Paternal Grandmother Rosi Ambriz Social History Tobacco Use Types Packs/Day Years Used Date Smoking Tobacco: Former Cigarettes 0.5 15 0 10/20/2002 - 10/20/2017 Smokeless Tobacco: Never Tobacco Cessation:Counseling Given: Not Answered Alcohol Use Standard Drinks/Week Comments Yes 0 (1 standard drink = 0.6 oz pur e alcohol) occas Sex and Gender Information Value Date Recorded Sex Assigned at Not on file Gender Identity Not on file Sexual Orientation Not on file Last Filed Vital Signs Vital Sign Reading Time Taken Comments Blood Pressure 118/80 07/24/2022 2:59 PM METAL SMELTER Pulse 98 07/24/2022 2:59 PM METAL SMELTER Temperature 35.3 ??C (95.5 ??F) 07/24/2022 2:59 PM CS T Respiratory Rate 16 05/13/2022 8:44 AM METAL SMELTER Oxygen Saturation 99% 07/24/2022 2:59 PM METAL SMELTER Inhaled Oxygen Concentration - - Weight 95.3 kg (210 lb) 07/24/2022 2:59 PM METAL SMELTER Height 162.6 cm (5' 4 ) 07/24/2022 2:59 PM METAL SMELTER Body Mass Index 36.05 07/24/2022 2:59 PM METAL SMELTER Plan of Treatment Health Maintenance Due Date Last Done Comments DTAP/TDAP/TD VACCINES (1 - Tdap) 2000 HEPATITIS B VACCINES (1 of 3 - 19+ 3-dose series) 2000 CERVICAL CANCER SCREENING 2011 BREAST CANCER SCREENING 10/30/2022 10/30/2021 Preventative Visit-Managed Medicaid 07/26/2023 07/24/2022, 07/23/2021 INFLUENZA VACCINE (#1) 2023 2, 02/06/2022, 03/05/2021, Additional history exists COVID-19 Vaccine ( - 2023- season) 2024 08/16/2020, 07/27/2020 HPV VACCINES Aged Out No longer eligi ble based on patient's age to complete this topic PNEUMOCOCCAL VACCINE 0-64 YEARS Aged Out No longer eligible based on patient's age to complete this topic Medical Devices Implanted Type Area Senior Advisor Device Identifier Shelf Expiration Date Model / Serial / Lot Knee Total Replacement Mirena Iud Procedures Procedure Name Priority Date/Time Associated Diagnosis Comments MAMMO 3D MAGALIE SCREEN BILAT W OR WO CAD Routine 10/30/2021 7:25 AM CDT Visit for screening mammogram from Last 3 Months or Most Recently Relevant to Health Maintenance Results * MAMMO SCRN BILAT 3D MAGALIE W OR WO CAD (10/30/2021 7:25 AM CDT) Anatomical Region Laterality Modality Breast Bilateral Mammography 10/30/2021 7:29 AM CDT Impressions 10/30/2021 9:14 AM CDT IMPRESSION: ?? 1. No concerning findings. OVERALL FINAL ASSESSMENT: ??BI-RADS CATEGORY 1 - ??Negative. RECOMMENDATIONS: ?? 1. Recommend annual mammography. Narrative 10/30/2021 9:14 AM CDT BILATERAL SCREENING DIGITAL MAMMOGRAM WITH 3D TOMOSYNTHESIS AND CAD DATE: 10/30/2021 7:25 AM DICTATION LOCATION: [facility] HISTORY: Routine yearly screening exam. TECHNIQUE: Low-dose full-field digital breast tomosynthesis examination was performed of both breasts with 2D and 3D acquisitions. CAD was utilized. COMPARISON: None, baseline. BREAST COMPOSITION: Scattered fibroglandular densities FINDINGS: No concerning dominant masses, suspicious calcifications, parenchymal asymmetries or areas of architectural distortion are identified in either breast. ?? Procedure Note Shun Bran MD - 10/30/2021 BILATERAL SCREENING DIGITAL MAMMOGRAM WITH 3D TOMOSYNTHESIS AND CAD DATE: 10/30/2021 7:25 AM DICTATION LOCATION: [facility] HISTORY: Routine yearly screening exam. TECHNIQUE: Low-dose full-field digital breast tomosynthesis examination was performed of both breasts with 2D and 3D acquisitions. CAD was utilized. COMPARISON: None, baseline. BREAST COMPOSITION: Scattered fibroglandular densities FINDINGS: No concerning dominant masses, suspicious calcifications, parenchymal asymmetries or areas of architectural distortion are identified in either breast. IMPRESSION: 1. No concerning findings. OVERALL FINAL ASSESSMENT: BI-RADS CATEGORY 1 - Negative. RECOMMENDATIONS: 1. Recommend annual mammography. Jai Guadarrama MD MAMMO ORDERABLES from Last 3 Months or Most Recently Relevant to Health Maintenance Advance Directives For more information, please contact: [phone] * Full Code (Latest Code Status on File) Date Activated Date Inactivated Comments 05/05/2022 4:21 PM 05/06/2022 5:24 PM * Full Code Date Activated Date Inactivated Comments 05/05/2022 8:46 AM 05/05/2022 4:21 PM Care Teams Ecotherapist Relationship Specialty Start [place] [address] [facility] [address] [place] [phone] PCP - General Internal Medicine 04/08/21
--- OUTSIDE RECORDS SUMMARY | 2024-05-29 17:29 | XMS_ITS | Encounter Summary ---
Author Organization [facility] Address [address] [place] [address] Care Team Providers Care Briquette Machine Operator Name Role Phone Jai Guadarrama MD Primary Care Provider +1- [phone] Encounter Details Date Type Department Care Team (Late st Contact Info) Description 06/19/2023 External Device Data STL ABSTRACTION Provider, Abstract [...] on filedocumented in this encounter Care Teams Briquette Machine Operator Relationship Specialty Start [place] [address] [facility] [address] [place] [phone] PCP - General Internal Medicine 04/08/21 documented as of this encounter
--- OUTSIDE RECORDS SUMMARY | 2024-05-29 17:30 | XMS_ITS | Encounter Summary ---
Author Organization [facility] Address [address] [place] [address] Care Team Providers Care Answering Service Operator Name Role Phone Jai Guadarrama MD Primary Care Provider +1- [phone] Reason for Visit * Reason Comments Post-op Visit Follow Up Encounter Details Date Type Department Care Team (Late st Contact Info) Description 07/17/2022 2:15 PM MARKETING OPERATIONS MANAGER Office Visit [facility] [place] [address] [place] [address] Jerrell Byrd, DO [address] [place] [address] S/P laparoscopic sleeve gastrectomy (Primary Dx); Postoperative visit; Obesity (BMI 30-39.9) Social History Tobacco Use Types Packs/Day Years [...] Sign Reading Time Taken Comments Blood Pressure 120/80 07/17/2022 2:37 PM MARKETING OPERATIONS MANAGER Pulse - - Temperature - - Respiratory Rate - - Oxygen Saturation - - Inhaled Oxygen Concentration - - Weight 96.1 kg (211 lb 12.8 oz) 07/17/2022 2:37 PM MARKETING OPERATIONS MANAGER Height 162.6 cm (5' 4 ) 07/17/2022 2:37 PM MARKETING OPERATIONS MANAGER Body Mass Index 36.36 07/17/2022 2:37 PM MARKETING OPERATIONS MANAGER documented in this encounter Progress Notes * Jerrell Byrd, DO - 07/17/2022 2:15 PM CST Images from the original note were not included. Patient: Renata Lei : 1980 [facility] [address] [place] [address] POST-OPERATIVE VISIT Visit: 2 MONTHS Surgical Procedure: Carpal Tunnel Release Endoscopic - Right Date of Surgery: 05/13/2022 Pre-surgical weight: 266 lb Last visit weight: 230 lb Today's weight: 211 lb Total weight loss: 55 lb INTERVAL HISTORY: The patient is a(n) 42 y.o. female presenting for bariatric postoperative follow-up. Since our last follow-up, she has not had bariatric labs drawn. INTERVAL ISSUES/CONCERNS: none - Has she been admitted to the hospital? No - Undergone any post-bariatric surgical operations or interventions? No Last documented weight: Weight: 96.1 kg (211 lb 12.8 oz) (07/17/22 1437) [place] body weight: 54.7 kg (120 lb 9.5 oz) Adjusted ideal body weight: 71.2 kg (157 lb 1.2 oz) Excess weight: 146 lbs % of EBW lost: 25% Daily fluid/water intake = More than 60 oz Protein intake is adequate. Physical Activity: Exercising 1-3x/week and walking 6,000-10,000 steps/day. ROS (also, see interval Hx) Fever/chills: No Elevated HR: No Bloating/hiccups: No SOB/cough/wheezing: No Lower extremity pain or swelling: No Decreased UOP: No Bowel function: Normal BMs without complaint Comorbidity Evaluation RYAN: No GERD: No - still taking postoperative 3-month course of omeprazole (Prilosec). Hypertension: No - n/a Hyperlipidemia: No Diabetes: No VTE: No Medication changes since last visit: NA Discontinued medications: NA Is patient attending any support groups? Encouraged attendance PHYSICAL EXAM BP 120/80 (BP Location: Left arm) Ht 5' 4 (1.626 m) Wt 96.1 kg (211 lb 12.8 oz) BMI 36.36 kg/m?? General: Well-developed female in no acute distress. Heart: normal rate and regular rhythm, S1 and S2 normal Lungs: clear to auscultation, no wheezes, rales or rhonchi, symmetric air entry Abdomen: Soft, non-tender. Bowel sounds normal. No masses, no organomegaly. Extremities: Warm & well perfused, atraumatic, no erythema or tenderness in the calves nor thighs Reviewed any recent labs with patient at visit today. IMPRESSION/PLAN: S/p bariatric surgery, Body mass index is 36.36 kg/m??. EDUCATION: Emphasized exercise and activity expectations; goal of 10,000 steps/day & 150 activemin/wk. Reiterated importance of drinking at least 64 oz fluid & taking in at least 60-90g protein daily. Patient understands the daily postop vitamin requirements: MVI, calcium + Vit D (1,500IU), folate 100mg, and any other vitamin supplements as needed based on laboratory monitoring. Reviewed appropriate eating habits and food choices. Reminded patient that surgery is not a magic fix for weight loss: it is hard work and requires many behavioral changes to be successful. Encouraged patientfollow with her PCP regularly, especially regarding medication changes; to see a counselor if mental health concerns arise; and continue to follow-up with bariatric engineering manager. There are no barriers to education today. DISPOSITION: Return in 4 months for follow-up visit. Patient also instructed to have repeat labs drawn prior to next postop follow-up visit; orders placed: CBC w/diff, CMP, Vit B1, Folate, Vit B12, iron/TIBC, lipid panel, 25-Hydroxy, HbA1C, zinc. The patient is encouraged to call the clinic with any questions or concerns in the meantime. The patient demonstrates understanding and is amendable to the above outlined plan. Elias Byrd DO 07/17/2022 ETING OPERATIONS MANAGER documented in this encounter Plan of Treatment Not on file documented as of this encounter Procedures Procedure Name Priority Date/Time Associated Diagnosis Comments ZINC LEVEL Routine 07/15/2022 11:54 AM MARKETING OPERATIONS MANAGER S/P laparoscopic sleeve gastrectomy VITAMIN B12 AND FOLATE Routine 07/15/2022 11:54 AM MARKETING OPERATIONS MANAGER S/P laparoscopic sleeve gastrectomy IRON, TIBC, AND PERCENT SATURATION Routine 07/15/2022 11:54 AM MARKETING OPERATIONS MANAGER S/P laparoscopic sleeve gastrectomy VITAMIN D 25 HYDROXY Routine 07/15/2022 11:54 AM MARKETING OPERATIONS MANAGER S/P laparoscopic sleeve gastrectomy TRANSFERRIN Routine 07/15/2022 11:54 AM MARKETING OPERATIONS MANAGER S/P laparoscopic sleeve gastrectomy TSH Routine 07/15/2022 11:54 AM MARKETING OPERATIONS MANAGER S/P laparoscopic sleeve gastrectomy VITAMIN B1 LEVEL Routine 07/15/2022 11:5 4 AM MARKETING OPERATIONS MANAGER S/P laparoscopic sleeve gastrectomy HEMOGLOBIN A1C Routine 07/15/2022 11:54 AM MARKETING OPERATIONS MANAGER S/P laparoscopic sleeve gastrectomy COMPREHENSIVE METABOLIC PANEL Routine 07/15/2022 11:54 AM MARKETING OPERATIONS MANAGER S/P laparoscopic sleeve gastrectomy documented in this encounter Results * TRANSFERRIN (07/15/2022 11:54 AM MARKETING OPERATIONS MANAGER) TRANSFERRIN 201 188 - 341 mg/dL [facility] Comment: Test Performed at: [facility] [address] [place], [place] ??[address] Dangelo Figueroa MD Blood 07/15/2022 11:5 4 AM MARKETING OPERATIONS MANAGER 07/15/2022 11:55 AM MARKETING OPERATIONS MANAGER Jerrell Byrd DO CHEMISTRY ORDERABLES [facility] [phone] [facility] [address] [place] [address] * IRON, TIBC, AND PERCENT SATURATION (07/15/2022 11:54 AM MARKETING OPERATIONS MANAGER) IRON 49 40 - 190 mcg/dL [facility] TIBC 271 250 - 450 mcg/dL (calc) [facility] IRON % SATURATION 18 16 - 45 % (calc) [facility] Comment: Test Performed at: [address] ??[address] Dangelo Figueroa MD Blood 07/15/2022 11:5 4 AM MARKETING OPERATIONS MANAGER 07/15/2022 11:55 AM MARKETING OPERATIONS MANAGER Jerrell Byrd DO CHEMISTRY ORDERABLES Performing Organization Address [facility] Co de Phone Number [facility] [phone] [address] * TSH (07/15/2022 11:54 AM MARKETING OPERATIONS MANAGER) TSH 0.66 mIU/L [facility] Comment: ?Reference Range ?> or = 20 Years ??0.40-4.50 ? Ranges ?First trimester ?0.26-2.66 ?Second trimester ?? 0.55-2.73 ?Third trimester ?0.43-2.91 Test Performed at: [address] ??[address] Dangelo Figueroa MD Blood 07/15/2022 11:5 4 AM MARKETING OPERATIONS MANAGER 07/15/2022 11:55 AM MARKETING OPERATIONS MANAGER Jerrell Byrd DO CHEMISTRY ORDERABLES Performing Organization Address City/[facility]/ZIP Co de Phone Number [facility] [phone] [address] * VITAMIN B1 LEVEL (07/15/2022 11:54 AM MARKETING OPERATIONS MANAGER) Pathologist [facility] VITAMIN B1 92 78 - 185 nmol/L [facility] [place] Comment: Vitamin supplementation within 24 hours prior to blood draw may affect the accuracy of results. This test was developed and its analytical performance characteristics have been determined by [facility]. It has not been cleared or approved by the FDA. This assay has been validated pursuant to the CLIA regulations and is used for clinical purposes. Test Performed at: [facility] [id number] [place] [address] ??[phone] Armando Calvin M.D. Blood 07/15/2022 11:5 4 AM MARKETING OPERATIONS MANAGER 07/15/2022 11:55 AM MARKETING OPERATIONS MANAGER Jerrell Byrd DO CHEMISTRY ORDERABLES [facility] [phone] [facility] [address] [place] [address] * (ABNORMAL) VITAMIN B12 AND FOLATE (07/15/2022 11:54 AM MARKETING OPERATIONS MANAGER) [facility] VITAMIN B12 366 200 - 1100 pg/mL [facility] Comment: Please Note: Although the reference range for vitamin B12 is 200-1100 pg/mL, it has been reported that between 5 and 10% of patients with values between 200 and 400 pg/mL may experience neuropsychiatric and hematologic abnormalities due to occult B12 deficiency; less than 1% of patients with values above 400 pg/mL will have symptoms. FOLATE, SERUM 3.1(L) ng/mL [facility] Comment: ? Reference Range ? Low: ? <3.4 ? Borderline: ?3.4-5.4 ? Normal: ?>5.4 Test Performed at: [facility] ??[address] Dangelo Figueroa MD Blood 07/15/2022 11:5 4 AM MARKETING OPERATIONS MANAGER 07/15/2022 11:55 AM MARKETING OPERATIONS MANAGER Jerrell Byrd DO CHEMISTRY ORDERABLES [facility] [phone] [address] * VITAMIN D 25 HYDROXY (07/15/2022 11:54 AM MARKETING OPERATIONS MANAGER) VITAMIN D, 25 OH, TOTAL 33 30 - 100 ng/mL [facility] Comment: Vitamin D Status ? 25-OH Vitamin D: Deficiency: ?<20 ng/mL Insufficiency: ? 20 - 29 ng/mL Optimal: ? > or = 30 ng/mL For 25-OH Vitamin D testing on patients on D2-supplementation and patients for whom quantitation of D2 and D3 fractions is required, the [facility] 25-OH VIT D, (D2,D3), LC/MS/MS is recommended: order code 13354 (patients >2yrs). See Note 1 Note 1 For additional information, please refer to http://education.[employer]/faq/QQB518 (This link is being provided for informational/ educational purposes only.) Test Performed at: [facility] ??[address] Dangelo Figueroa MD Blood 07/15/2022 11:5 4 AM MARKETING OPERATIONS MANAGER 07/15/2022 11:55 AM MARKETING OPERATIONS MANAGER Jerrell Byrd DO CHEMISTRY ORDERABLES Performing Organization Address City/State/[facility] Co de Phone Number [facility] [phone] [facility] [address] [place] [address] * ZINC LEVEL (07/15/2022 11:54 AM MARKETING OPERATIONS MANAGER) ZINC LEVEL 72 60 - 130 mcg/dL [facility] [place] Comment: This test was developed and its analytical performance characteristics have been determined by [facility]. It has not been cleared or approved by the FDA. This assay has been validated pursuant to the CLIA regulations and is used for clinical purposes. Test Performed at: [facility] ??[address] Shyam Serina Roberts Blood 07/15/2022 11:5 4 AM MARKETING OPERATIONS MANAGER 07/15/2022 11:55 AM MARKETING OPERATIONS MANAGER Jerrell Byrd DO CHEMISTRY ORDERABLES Performing Organization Address [facility] Co de Phone Number [facility] [phone] [address] * HEMOGLOBIN A1C (07/15/2022 11:54 AM MARKETING OPERATIONS MANAGER) Pathologist [facility] HEMOGLOBIN A1C 5.1 <5.7 % of total Hgb [facility] Comment: For the purpose of screening for the presence of diabetes: <5.7% ? Consistent with the absence of diabetes 5.7-6.4% ?Consistent with increased risk for diabetes ?(prediabetes) > or =6.5% ??Consistent with diabetes This assay result is consistent with a decreased risk of diabetes. Currently, no consensus exists regarding use of hemoglobin A1c for diagnosis of diabetes in children. According to [place] Diabetes Association (ADA) guidelines, hemoglobin A1c <7.0% represents optimal control in non- diabetic patients. Different metrics may apply to specific patient populations. Standards of Medical Care in Diabetes(ADA). ?? ESTIMATED AVERAGE GLUCOSE (MG/DL) 100 mg/dL [facility] ESTIMATED AVERAGE GLUCOSE (MMOL/L) 5.5 mmol/L [facility] Comment: Test Performed at: [place] [address] [place] ??[address] Dangelo Figueroa Blood 07/15/2022 11:5 4 AM MARKETING OPERATIONS MANAGER 07/15/2022 11:55 AM MARKETING OPERATIONS MANAGER Jerrell Byrd DO CHEMISTRY ORDERABLES [facility] [phone] [place] [address] [place] [address] * (ABNORMAL) COMPREHENSIVE METABOLIC PANEL (07/15/2022 11:54 AM MARKETING OPERATIONS MANAGER) GLUCOSE 96 65 - 99 mg/dL [facility] Comment: ? Fasting reference interval BUN 11 7 - 25 mg/dL [facility] CREATININE 0.65 0.50 - 0.99 mg/dL [facility] GFR 113 > OR = 60 mL/min/1 .73m2 [facility] Comment: The eGFR is based on the CKD-EPI 2020 equation. To calculate the new eGFR from a previous Creatinine or Cystatin C result, go to https://www.kidney.org/professionals/ kdoqi/gfr%5Fcalculator BUN/CREAT RATIO NOT APPLICABLE 6 - 22 (calc) [facility] SODIUM 136 135 - 146 mmol/L [facility] POTASSIUM 4.5 3.5 - 5.3 mmol/L [facility] CHLORIDE 104 98 - 110 mmol/L [facility] CO2 26 20 - 32 mmol/L [facility] CALCIUM 9.4 8.6 - 10.2 mg/dL [facility] TOTAL PROTEIN 6.4 6.1 - 8.1 g/dL [facility] ALBUMIN 4.1 3.6 - 5.1 g/dL [facility] GLOBULIN 2.3 1.9 - 3.7 g/dL (calc) [facility] ALBUMIN/GLOBULIN RATIO 1.8 1.0 - 2.5 (calc) [facility] BILIRUBIN TOTAL 0.6 0.2 - 1.2 mg/dL [facility] ALKALINE PHOSPHATASE 62 31 - 125 U/L [facility] AST 19 10 - 30 U/L [facility] ALT 39(H) 6 - 29 U/L [facility] Comment: Test Performed at: [place] [address] [place] ??[address] Dangelo Figueroa Blood 07/15/2022 11:5 4 AM MARKETING OPERATIONS MANAGER 07/15/2022 11:55 AM MARKETING OPERATIONS MANAGER Jerrell Byrd DO CHEMISTRY ORDERABLES [facility] [phone] [place] [address] [place] [address] documented in this encounter Visit Diagnoses Diagnosis S/P laparoscopic sleeve gastrectomy- Primary Postoperative visit Obesity (BMI 30-39.9) Obesity, unspecified documented in this encounter Care Teams Answering Service Operator Relationship Specialty [place] [address] [place] [phone] PCP - General Internal Medicine 04/08/21 documented as of this encounter
--- OUTSIDE RECORDS SUMMARY | 2024-05-29 17:30 | XMS_ITS | Encounter Summary ---
Author Organization [facility] Address [address] Kaplan: Epic Prelude ADT [place] [address] Care Team Providers Care Service Station Operator Name Role Phone Jai Guadarrama MD Primary Care Provider +1- [phone] Encounter Details Date Type Department Care Team (Latest Contact Info) Description 04/22/2022 Travel Social History Tobacco Use Types Packs/Day [...] Exposure Response Date Recorded In the last 10 days, have yo u been in contact with someone who was confirmed or suspected to have Coronavirus/COVID-19? No / Unsure 04/22/2022 8:50 AM GUTTER MOUTH CUTTER documented as of this encounter Plan of Treatment Not on file documented as of this encounter Visit Diagnoses Not on filedocumented in this encounter Care Teams Service Station Operator Relationship Specialty [place] [address] [place] [address] PCP - General Internal Medicine 04/08/21 documented as of this encounter
--- OUTSIDE RECORDS SUMMARY | 2024-05-29 17:30 | XMS_ITS | Encounter Summary ---
Author Organization [facility] Address [address] [place] [address] Care Team Providers Care Owner Operator Tanker Truck Driver Name Role Phone Jai Guadarrama MD Primary Care Provider +1- [phone] Reason for Visit * Reason Comments Post-op Visit Encounter Details Date Type Department Care Team (Latest Contact Info) Description 05/22/2022 10:00 AM HUMAN ANATOMY TEACHER Office Visit [facility]astic Surgery [facility] Burn [address] [address] Santana Lake MD [address] [facility] [address] [place] [address] Postoperative follow-up (Primary Dx); Carpal tunnel syndrome of right wrist; Carpal tunnel syndrome of left wrist Social History Tobacco Use Types Packs/Day Years [...] suspected to have Coronavirus/COVID-19? No / Unsure 05/22/2022 9:35 AM HUMAN ANATOMY TEACHER documented as of this encounter Last Filed Vital Signs Vital Sign Reading Time Taken Comments Blood Pressure 109/75 05/22/2022 9:41 AM HUMAN ANATOMY TEACHER Pulse - - Temperature - - Respiratory Rate - - Oxygen Saturation - - Inhaled Oxygen Concentration - - Weight 103.4 kg (228 lb) 05/22/2022 9:41 AM HUMAN ANATOMY TEACHER Height 162.6 cm (5' 4 ) 05/22/2022 9:41 AM HUMAN ANATOMY TEACHER Body Mass Index 39.14 05/22/2022 9:41 AM HUMAN ANATOMY TEACHER documented in this encounter Progress Notes * Santana Lake MD - 05/22/2022 10:00 AM CST [facility] Plastic and Hand Surgery Surgery: DATE OF SERVICE: 05/13/2022 NAME: Renata Lei : 1980 CSN: [id number] SURGEON Santana Lake MD. PREOPERATIVE DIAGNOSIS Right wrist carpal tunnel syndrome. POSTOPERATIVE DIAGNOSIS Right wrist carpal tunnel syndrome. OPERATION NAME Right wrist endoscopic carpal tunnel surgery. ANESTHESIA MAC, Extremity Block The Nerve block was performed for both anesthesia for the procedure and for post-operative pain management SUBJECTIVE: Renata Lei is a 42 y.o. female who had the surgery listed above, the patient has been feeling good, and has no unusual complaints. The patient has been following the post operative instructions and medications. The patient states that the carpal tunnel like symptoms they were feeling before thesurgery have greatly improved. She did feel a pulling sensation when tying her child's shoe for school. She does get a buzzing/tingling sensation in her right thumb still, but states that it has improved since her last appointment. TOBACCO COUNSELING She is not a tobacco user. OBJECTIVE: Physical Exam: BP 109/75 Ht 5' 4 (1.626 m) Wt 103.4 kg (228 lb) BMI 39.14 kg/m?? General appearance: alert, well appearing, and in no distress and oriented to person, place, and time. Surgical site: Swelling: minimal Warmth: normal warmth Tenderness: mild Incision: healing well, no significant drainage, no dehiscence, no significant erythema The patient has sensation to the finger tips intact to light finger touch: Thumb, Index, Middle, Ring and Small finger The patient can flex and extend their fingers ASSESSMENT: Post operative from right wrist endoscopic carpal tunnel release Encounter Diagnoses Name Primary? Postoperative follow-up Yes Carpal tunnel syndrome of right wrist Carpal tunnel syndrome of left wrist Plan: Sutures removed in the office Apply right wrist incision covered with bacitracin ointment and band-aid for two days Scar massage with hand lotion three times per day Home hand therapy discussed with the patient F/U: PRN or as needed for any problems, questions, new or worsening symptoms All of the patients questions were encouraged and answered. The patient will call our office/extract operator or go to the nearest emergency room if they have any questions, worsening pain, fevers, redness, chills or other concerning questions. Santana Lake M.D. Hand and Plastic Surgeon [facility] Plastic Surgery This note is prepared by Sofia Be acting as scribe for Dr. Santana Lkae at 10:12 am on 05/22/2022 . N ANATOMY TEACHER documented in this encounter Plan of Treatment Not on file documented as of this encounter Visit Diagnoses Diagnosis Postoperative follow-up- Primary Follow-up examination, following unspecified surgery Carpal tunnel syndrome of right wrist Carpal tunnel syndrome Carpal tunnel syndrome of left wrist Carpal tunnel syndrome documented in this encounter Care Teams Owner Operator Tanker Truck Driver Relationship Specialty Start [place] [address] [place] [address] [place] [phone] PCP - General Internal Medicine 04/08/21 documented as of this encounter
--- OUTSIDE RECORDS SUMMARY | 2024-05-29 17:30 | XMS_ITS | Encounter Summary ---
Author Organization [facility] Address [address] [place] [address] Care Team Providers Care Supervisor Fur Floor Worker Name Role Phone Jai Guadarrama MD Primary Care Provider [phone] Reason for Visit * Auth/Cert (Routine) Specialty Diagnoses / Procedures Referred By Rigoberto t Referred To Contact Perioperative Diagnoses RIGHT CARPAL TUNNEL SYNDROME Procedures AL WRIST ARTHROSCOP,RELEASE XVERS LIG AL WRIST ARTHROSCOP,RELEASE XVERS LIG AL REVISE MEDIAN N/CARPAL TUNNEL SURG CARPAL TUNNEL RELEASE ENDOSCOPIC [facility] Or [address] [place] [address] Referral ID Status Reason Start Date Expiration Date Visits Re quested Visits Authorized [id number] 1 1 Encounter Details Date Type Department Care Team (Late st Contact Info) Description 05/13/2022 7:20 AM MANAGER NEW PRODUCT - 05/13/2022 8:45 AM MANAGER NEW PRODUCT Surgery [facility] Operating Room [address] [place] [address] Santana Lake MD [address] [address] CARPAL TUNNEL RELEASE ENDOSCOPIC Surgery Details Date/Time Status Location OR Service Patient Class Case Class Case Type Trauma Case? 05/13/2022 7:20 AM Posted [facility] OR MAIN OR 22 Plastic Surgery Surgical OP/Extended Care Elective No Panel 1 Procedure LRB Anes Op Region Wound Class Comments CARPAL TUNNEL RELEASE ENDOSCOPIC Right Monitored Anesthetic Care Wrist Clean-I Surgeon Surgeon Role Service Panel Santana Lake MD Primary Plastic Surger y 1 Case Notes [facility] SWANSON PP documented in this encounter Social History Tobacco [...] suspected to have Coronavirus/COVID-19? No / Unsure 05/08/2022 8:27 AM MANAGER NEW PRODUCT documented as of this encounter Last Filed Vital Signs Vital Sign Reading Time Taken Comments Blood Pressure 136/83 05/13/2022 8:44 AM MANAGER NEW PRODUCT Pulse 54 05/13/2022 8:44 AM MANAGER NEW PRODUCT Temperature 36.1 ??C (97 ??F) 05/13/2022 8:44 AM MANAGER NEW PRODUCT Respiratory Rate 16 05/13/2022 8:44 AM MANAGER NEW PRODUCT Oxygen Saturation 96% 05/13/2022 8:44 AM MANAGER NEW PRODUCT Inhaled Oxygen Concentration - - Weight 106.5 kg (234 lb 12.8 oz) 05/13/2022 6:42 AM MANAGER NEW PRODUCT Height 162.6 cm (5' 4 ) 05/13/2022 6:42 AM MANAGER NEW PRODUCT Body Mass Index 40.3 05/13/2022 6:42 AM MANAGER NEW PRODUCT documented in this encounter Discharge Instructions * Discharge Instructions* Margarita Pastor RN - 05/13/2022 8:41 AM MANAGER NEW PRODUCT [facility] discharge instructions. F/u in my office in approximately 10-14 days, please call the office tomorrow or the next business day to arrange your clinic date, time, and location as we have three different office locations. Resume your normal home medications. Take over the counter Tylenol as needed for pain. No driving or operating machinery while taking narcotics. Do not take or mix prescription narcotics with other narcotics, alcohol, or sedatives. OK to take over the counter Benadryl tablets for nausea and insomnia. Keep your bandages clean and dry, for 48 hours, then remove and shower. Apply a bandage if there isdrainage, leave air dry if there is no drainage. Apply a bag of frozen peas or frozen corn to the top of the bandages to help with pain and decreaseinflammation for the first 2 days while awake. Do not apply heating pads to the surgical sites, ok to apply cool packs overtop of the bandages, do not apply cool packs or ice directly to the skin. No heavy lifting pushing or pulling. Do exercise your fingers and make a slow gentle fist and open your hand three times per hour every hour while awake. Elevate your operative extremity at all times with pillows while in a bed or chair for the next 48-72 hours. The patient should and has confirmed to the discharge nurse that they will call my office for any minor concerns, or 911, or return to the ER if they have increasing pain, redness, drainage, chest pain, leg swelling, fevers, chills, or any concerning questions. If you are not active on [employer], please sign up by visiting [employer] Then send me a message saying tatabrianna, and that you have now signed up for my [employer]. Santana Lake MD [facility] 1st choice M-F 8am-4pm: office, hogshead press operator (nights and weekends) SAFETY For the next 24 hours, you may feel sleepy due to medicines used during your procedure. For the next 24 hour period or while you are on pain medication, DO NOT make any important decisions or sign any important papers. DO NOT drink any alcoholic beverages, including beer. DO NOT drive a car or operate machinery and power tools. For your safety and protection, we strongly recommend that a responsible adult be with you today and throughout the night. Medication Pain Medication given at . Next dose due at , if needed. ADDITIONAL INFORMATION Once you are home, if you develop any of the following symptoms, call your physician. Difficulty in breathing, persistent nausea or vomiting, pain that is unusual, excessive swelling orredness at incision site, trouble swallowing, inability to void, temperature greater than 101 degrees, excessive bleeding at incision site. If you cannot contact your physician, call or come to the Emergency Room at [facility] ([phone]) or the nearest Emergency Room. In an emergency, Call 911. GER NEW PRODUCT documented in this encounter Medications at Time of Discharge Medication Sig Dispensed Refills Start Date End Date naloxone (NARCAN) 4 mg/spray Menan, Non-Aerosol EMERGENCY USE ONLY: Administer 1 spray (4 mg) in one nostril one time. May repeat in alternating nostrils every 2-3 min until responsive or EMS arrives. 2 Each 3 05/06/2022 docusate sodium (COLACE) 100 mg capsule Take 1 Capsule (100 mg) by mouth 2 times daily. 60 Capsule 05/05/2022 ondansetron (ZOFRAN ODT) 4 mg Tablet, Rapid Dissolve Take 1 Tablet (4 mg) by mouth every 6 hours as needed for Nausea/Emesis. Dissolve tablet on top of tongue, then swallow with saliva. 40 Tablet 05/05/2022 omeprazole (PriLOSEC) 40 mg Capsule, Delayed Release(E.C.) Take 1 Capsule (40 mg) by mouth daily. Open capsule and pour contents into sugar-free jell-O or other food of similar consistency. 30 Capsule 2 05/05/2022 CALCIUM CARBONATE-VITAMIN D3 ORAL Take 50,000 mg by mouth every 7 days. levonorgestrel (MIRENA INTRAUTERINE) by Intrauterine route. nortriptyline (PAMELOR) 25 mg capsule Take 1 Capsule (25 mg) by mouth daily. 90 Capsule 3 06/24/2021 escitalopram oxalate (LEXAPRO) 10 mg tablet Take 10 mg by mouth daily. 12/19/2019 topiramate (Topamax) 200 mg tablet Take 1 Tablet (200 mg) by mouth daily. 90 Tablet 3 04/08/2021 cetirizine (ZyrTEC) 10 mg tablet Take 1 Tablet (10 mg) by mouth daily 90 Tablet 3 06/24/2021 03/16/2023 ALPRAZolam (XANAX) 0.25 mg tabletIndications:An xiety state Take 1 Tablet (0.25 mg) by mouth 3 times daily as needed for Anxiety. 30 Tablet 06/24/2021 03/16/2023 documented as of this encounter H&P Notes * Santana Lake MD - 05/13/2022 7:20 AM CST [facility]: CC: Right Carpal Tunnel Syndrome Who referred you to Dr. 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 Assess: Current tobacco use? No: Past Medical History: Diabetes: no HIV: no Hepatitis: no Prior history of infections: (MRSA/ or VRE): no Cardiac disease/previous heart attacks/ peripheral vascular disease: no Any other Medical problems not mentioned above? no Patient Active Problem List Diagnosis Code Hypercholesterolemia E78.00 Migraines G43.909 Low vitamin D level R79.89 Hemorrhoids K64.9 Anxiety F41.9 Allergic rhinitis J30.9 Personal OR Family History of Anesthetic problems: no right Hand dominant Are you on any blood thinners (Asprin, Coumadin, Plavix): no REVIEW OF SYSTEMS: General ROS: negative for weight changes, fever Hematological and Lymphatic ROS: Bleeding problems: no, Blood clots in the past: no Neurological ROS: numbness in the fingers or toes:yes, right thumb, index, middle and partial ring Stroke: no Musculoskeletal: prior surgery OR fractures of the hand:no Date of injury/Start of symptoms: 1.5 years ago, worsened 1.5 months ago How did the injury occur if there was an injury:no injury HISTORY OF PRESENT ILLNESS: Renata Lei is a 42 y.o. female who is here for right thumb index, middle and ring finger numbness. The location of the problem is radial digits on the right hand. The severity is moderate. The quality is burning and numbness. Prior treatment/modifying factors includes: splinting, The symptoms have worsened The patient has been seen by a prior physician for this complaint The patient has not been seen by a surgical scrub technologist for this complaint in the past. OBJECTIVE: Physical Exam: BP 110/80 (BP Location: Right arm, Patient Position (BP): Sitting) Pulse 74 Temp (!) 96 ??F (35.6 ??C) (Temporal) Resp 20 Ht 5' 4 (1.626 m) Wt 106.5 kg (234 lb 12.8 oz) SpO2 98% BMI 40.30 kg/m?? General appearance: alert, well appearing, and in no distress and oriented to person, place, and time. Chest: Non labored breathing Normal respiratory rate Heart: palpable RRR, no JVD Lymphatic Exam: No upper extremity lymphadenopathy Gait: normal Strength normal Neurological Exam: subjectively abnormal decreased sensation to touch Skin: normal, the skin color appeared normal and the finger tips appeared viable Swelling: minimal Warmth: no warmth Tenderness: moderate Pertinent exam: Radial pulse normal, Phalen and Durkan's test: Positive: right With changes in the finger tips Tinel over the carpal tunnel at the level of the wrist: Positive: right Tinel over the Cubital tunnel: Negative: bilateral APB: normal strength, slight flattening on the left side of thenar eminence Intrinsics: normal Thenar wasting:slight flattening on the left side of thenar eminence Sensation: Thenar and hypothenar skin sensation intact: yes Monofilament: R Thumb: 0.4 grams detected Right Index: 0.07 grams detected Right Middle: 0.07 grams detected Right Rin.07 grams detected Right Small: 0.07 grams detected Left Thumb: 0.07 grams detected Left Index: 0.07 grams detected Left Middle: 0.07 grams detected Left Rin.07 grams detected Left Small: 0.07 grams detected Other studies: EMG EMG/Nerve Conduction Studies:were positive for carpal tunnel bilaterally, see e medical records ASSESSMENT: ICD-10-CM ICD-9-CM 1. Carpal tunnel syndrome of right wrist G56.01 354.0 2. Carpal tunnel syndrome of left wrist G56.02 354.0 Multiple surgical and non-surgical options (including no intervention, observation, therapy) were discussed with the patient The risks of the surgical and non-surgical options were discussed Treatments discussed: Endoscopic possible open carpal tunnel release Risks,benefits ratio She may need her left side done at some point in time in her life The patient and myself believe the best treatment in this particular case is: Right endoscopic carpal tunnel release All of the patients questions were encouraged and answered. I personally discussed the risks, benefits, and alternatives with the patient and or family in great detail. The risks of the procedure are including but are not limited to: inability to perform the operation endoscopically and need to convert to an open operation for the carpal tunnel release or repair of any injured structures, partial symptomatic relief, or no improvement in symptoms, incomplete release, injury to the median nerve, injury to the motor branch of the median nerve to the muscles of the thumb, injury to the ulnar nerve, injury to the ulnar artery, early recurrent carpal tunnel, late recurrent carpal tunnel, bleeding, hematoma, seroma, infection, drug resistant bacteria, MRSA, scarring, non cosmetic results, wounds, chronic wounds and non healing tissue, need for additionalprocedures, injury to the surrounding structures: blood vessels, nerves, muscles, tendons, bones and skin, possible no improvement in their symptoms or even worsening of their symptoms, venous embolism, heart attack, stroke, allergic reactions, anesthetic problems, chronic pain, CRPS, non functional extremity, decreased motion, stiffness, decreased strength, operative instrument complications, revision surgery and . I have discussed with the patient the need for photographs, for use in their care, education activities, examination, and testing. All of the patients questions were encouraged and answered. I discussed with the patient that we can not provide a guarantee of results howeverI will do what I can to provide the best care that is possible and provide care and compassion for this patient. All of the patients questions were encouraged and answered. The patient will call or office or go to the nearest emergency room if they have any questions, worsening pain, fevers, redness, chills or other concerning questions. Santana Lake M.D. Hand and Plastic Surgeon [facility] GER NEW PRODUCT documented in this encounter OR Notes * Darlyn-OP - Claudia Joshua RN - 05/13/2022 9:06 AM CST Took IV out of L hand, catheter intact, direct pressure applied. GER NEW PRODUCT * Operative Report - Santana Lake MD - 05/13/2022 8:42 AM MANAGER NEW PRODUCT DATE OF SERVICE: 05/13/2022 NAME: Renata Lei : 1980 [facility]: [id number] SURGEON Santana Lake MD. PREOPERATIVE DIAGNOSIS Right wrist carpal tunnel syndrome. POSTOPERATIVE DIAGNOSIS Right wrist carpal tunnel syndrome. OPERATION NAME Right wrist endoscopic carpal tunnel surgery. ANESTHESIA MAC, Extremity Block The Nerve block was performed for both anesthesia for the procedure and for post-operative pain management INDICATIONS This is a very pleasant patient, who has been seen in my plastic/hand surgery cinic. The patient had signs and symptoms of carpal tunnel syndrome. The patient has tried conservative non operative treatments of the carpal tunnel syndrome. The patient has persistent symptoms despite these conservative treatments, therefore surgical intervention was discussed with the patient. The risks, benefits, and alternatives to surgery were discussed with the patient in great detail. The patient was aware of the risks of bleeding, infection, injury to surrounding structures, injuryto the blood vessels, injury to the nerves, injury to the nerves supplying the muscles of the thumb, injury to the nerves supplying the intrinsic muscles of the hand, injury to the nerves supplying sensation to the thumb, index, middle, ring, and small finger. The patient was aware of these risks and benefits, as well as the risks of recurrent carpal tunnel syndrome both early as well as late carpal tunnel recurrence as well as continued pain, persistent pain, nonfunctional extremity, blood clots, heart attack, and . The patient was aware of these risks and benefits and elected to proceed. The patient was seen in the preoperative holding area, where the consent was again confirmed both verbally as well as written consent was obtained. The patient's correct operative side and site was marked with indelible ink. The patient confirmed the correct operative side and site. PROCEDURE IN DETAIL The patient had received a pre-operative block from the anesthesiologist, the patient was escorted to the operating room, placed in a supine position, received MAC anesthesia by the anesthesiologist.All of the bony prominences were padded appropriately. The patient had a well-padded tourniquet applied. The patient had an upper extremity drape applied which was prepped in a normal sterile fashion. A time-out confirmed the correct patient, correct side and site, diagnosis, procedure, SCDs were inplace, the preoperative plan was discussed with the operative team,and confirmed that she had received preoperative antibiotics. The entire operative team participated and we proceeded forward. The patient's right wrist was incised in a transverse incision approximately 1 cm proximal to the wrist crease and ulnar to the midline. The incision was made with a #15 blade scalpel. The subcutaneous tissue was dissected down using tenotomy scissors. The superficial veins were identified and protected and spread away from the incision. The patient's antebrachial fascia was identified and grasped using a curing pickling packer. The antebrachial fascia was then spread along the length of its fibers to gain access to the carpal tunnel. The antebrachial fascia was elevated and picked up using forcepts. A series of endoscopic dilators were inserted. The endoscopic dilators were first placed with the small smooth dilator followed by the medium smooth dilator followed by the square dilator. The undersurface of the transverse carpal ligament was cleaned meticulously using the synovial elevator. The camera was inserted and careful attention was made to make sure that the transverse carpal ligament was clearly identified. The camera was withdrawn and additional cleaning was performed using a synovial elevator. The camera was reinserted, we had an excellent visualization of the transverse carpal ligamentand that all of the synovium had been removed and that there was no nerve fascicles or synovium between the trocar and the undersurface of the transverse carpal ligament. The trochar was ulnar to allof the median nerve fascicles. The blade was engaged at the distal third of the transverse carpal ligament. The trocar was then advanced while the blade was let down and the most distal aspect of thetransverse carpal ligament was clearly visualized and incised using the endoscopic blade. The distal aspect of the transverse carpal ligament was confirmed and cut using the endoscopic blade, distal to this area I confirmed that there was no further transverse carpal ligament by the identifying thesoft fat within the palm. There was no injury to any of the vascular structures in this area. The trocar was then further withdrawn and again careful attention was made to make sure that there was nosynovium and no nerve fascicles in this area. The transverse carpal ligament was cut using the endoscopic blade. The trocar was further drawn back and a complete release of the transverse carpal ligament was obtained. The camera and trocar was reinserted and I confirmed that there was no remaining f ibers under direct vision. The camera was able to be advanced into this space where the transverse carpal ligament had been. The trocar was then completely removed and a second confirmation that the transverse carpal ligament had been divided by utilizing the square dilator, which was easily inserted into the space of the carpal tunnel, and that the entire transverse carpal ligament had been released using tactile sensation with the square in the dilator advancing it into the space of the palm volarly. The antebrachial fascia was carefully examined and using a tenotomy scissors both the proximal and distal end of the antebrachial fascia was incised using a tenotomy scissors under direct vision to make sure the opening within the transverse carpal ligament was open into the patient's forearm antebrachial fascia opening. The tourniquet was let down. I made sure that the entire wound was made hemostatic using bipolar electrocautery. The finger tips were examined after the tourniquet was let down and all of the fingers were pink with excellent capillary refill. The nerve was visualized within the wound and appeared quite healthy. The skin edges were then reapproximated using 5.0 biosyn sutures. The incision was covered with bacitracin ointment followed by Adaptic, followed by a 2x2,followed by cast padding, followed by a loosely wrapped Chauncey bandage. There were no acute surgical complications. All needle counts and operative instruments were double counted for reported as correct x2. Total tourniquet time was less than 30 minutes. Santana Lake MD GER NEW PRODUCT * Darlyn-OP - Julisa Carrillo RN - 05/08/2022 8:37 AM CST Surgical orders unavailable at the time of patient's [facility] phone interview. GER NEW PRODUCT * Darlyn-OP - Julisa Carrillo RN - 05/08/2022 8:31 AM CST Patient states she has not had any chances in her medical history or medications since her DOS . States she has the pre procedural instructions and has no further questions. Medications reviewed. ADVANCED PLANNING FOR MEDICATION USE * Unless otherwise ordered by a member of the [facility] Anesthesiology Staff. 1. STOP a. Seven (7) DAYS PRIOR TO SURGERY OR WHEN NOTIFIED IF < SEVEN DAYS: The use of all vitamins, herbal supplements, and other alternative substances. b. Seven (7) DAYS PRIOR TO SURGERY: The use of any UNPRESCRIBED Aspirin, Excedrin and NSAIDs which include Motrin, Ibuprofen, Aleve, and Naprosyn. CURRENT MEDICATION LIST Pre-Surgery Instructions Medication Instructions naloxone (NARCAN) 4 mg/spray Menan, Non-Aerosol May use if needed the morning of surgery. docusate sodium (COLACE) 100 mg capsule Do not take day of surgery ondansetron (ZOFRAN ODT) 4 mg Tablet, Rapid Dissolve May take as needed (PRN) medication with sip of water omeprazole (PriLOSEC) 40 mg Capsule, Delayed Release(E.C.) Take morning of surgery with sip of water HYDROcodone-acetaminophen (HYCET) 7.5-325 mg/15 mL Solution May take as needed (PRN) medication with sip of water levonorgestrel (MIRENA INTRAUTERINE) IUD nortriptyline (PAMELOR) 25 mg capsule May take as needed (PRN) medication with sip of water cetirizine (ZyrTEC) 10 mg tablet May take as needed (PRN) medication with sip of water ALPRAZolam (XANAX) 0.25 mg tablet May take as needed (PRN) medication with sip of water escitalopram oxalate (LEXAPRO) 10 mg tablet Take morning of surgery with sip of water topiramate (Topamax) 200 mg tablet Take morning of surgery with sip of water GER NEW PRODUCT * Darlny-OP - Sandy Logan RN - 04/30/2022 1:11 PM CST Patient seen and cleared 04/22/22 for gastric bypass surgery 05/05/22. This nurse spoke with Tawnya the surgery coordinator with Dr. Byrd to see if there would be a conflict with patient having her gastric surgery on Thursday, and then this procedure on Thursday. This case is a MAC, so Dr. Byrd is ok from his standpoint with the patient having this procedure, however, he feels she will be miserable . Tawnya is going to call the patient to see if she wants to proceed with this procedure on 05/09, orpostpone. Tawnya to call me back after speaking with patient. GER NEW PRODUCT documented in this encounter Miscellaneous Notes * Care Plan - Margarita Pastor RN - 05/13/2022 8:32 AM CST Knowledge deficit related to procedure/environment Interventions: Assess learning needs and willingness to learn; give clear, concise explanations of the environment and sequence of events surrounding the periop experience; address patient/family questions and concerns; provide teaching as indicated, provide teaching related to postoperative pain assessment utilizing pain scales Expected Outcome: Patient verbalizes or demonstrates awareness/understanding of surgery and perioperative experience Outcome Met: understands darlny-op Potential for anxiety related to surgical intervention Interventions: convey caring/supportive attitude; offer emotional support as needed; provide comfort measures (warm blanket, pillow, quiet environment); allow patient opportunity to verbalize concerns/fears/questions; explore coping behaviors; allow age-specific/special needs family support Expected Outcome: Patient will demonstrate decreased anxiety or adaptive coping strategies Outcome Met: patient calm and informed GER NEW PRODUCT * Care Plan - Julisa Palma RN - 05/13/2022 6:28 AM CST Knowledge deficit related to procedure/environment Interventions: Assess learning needs and willingness to learn; give clear, concise explanations of the environment and sequence of events surrounding the periop experience; address patient/family questions and concerns; provide teaching as indicated, provide teaching related to postoperative pain assessment utilizing pain scales Expected Outcome: Patient verbalizes or demonstrates awareness/understanding of surgery and perioperative experience Outcome Met: All concerns addressed GER NEW PRODUCT documented in this encounter Plan of Treatment Not on file documented as of this encounter Procedures Procedure Name Priority Date/Time Associated Diagnosis Comments AL NDSC WRST SURG W/RLS TRANSVRS CARPL LIGM 05/13/2022 7:20 AM MANAGER NEW PRODUCT RIGHT CARPAL TUNNEL SYNDROME Case Notes [facility] PP POC , URINE Routine 05/13/2022 6:25 AM MANAGER NEW PRODUCT documented in this encounter Results * POC , URINE (05/13/2022 6:25 AM MANAGER NEW PRODUCT) HCG QUAL URINE Negative Negative 05/13/2022 6:25 AM MANAGER NEW PRODUCT [facility] Urine 05/13/2022 6:25 AM MANAGER NEW PRODUCT 05/13/2022 1:04 PM MANAGER NEW PRODUCT Santana Lake MD POINT OF CARE T ESTING [facility] [employer] [facility] CLIA# [id number] [address] [place] [id number] documented in this encounter Visit Diagnoses Not on filedocumented in this encounter Administered Medications Inactive Administered Medications - up to 3 most recent administrations Medication Order MAR Action Action Date Dose Rate Site acetaminophen (TYLENOL) 325 mg/10.15 mL oral solution 650 mg 650 mg, Oral, EVERY 4 HOURS PRN, Starting on Thu05/13/22 at 0844, Until Thu05/13/22 at 1112, Pain, Moderate, Routine bacitracin zinc 500 unit/gram topical ointment INTRA-PROCEDURE PRN, Starting on Thu05/13/22 at 0810, Until Thu05/13/22 at 0823, Routine, Intra-op Given 05/13/2022 8:10 AM MANAGER NEW PRODUCT 1 Packet Operative Site lactated ringers infusion IV, at 150 mL/hr, PRE-PROCEDURE CONTINUOUS, Starting on Thu05/13/22 at 0600, Until Thu05/13/22 at 1112, Routine Continue from Pre-Op 05/13/2022 7:39 AM MANAGER NEW PRODUCT New Bag 05/13/2022 7:10 AM MANAGER NEW PRODUCT documented in this encounter Active and Recently Administered Medications Times are shown in MANAGER NEW PRODUCT. Scheduled Medication Order 05/11/2022 05/12/2022 05/13/2022 ceFAZolin in sterile water (ANCEF) 2 gram/20 mL IV Syringe (PREMIX) 2,000 mg (COMPLETED) 2,000 mg, IV, PRE-PROCEDURE ONCE, 1 dose, Starting on Thu05/13/22 at 0551, Until Thu05/13/22 at 0756, Routine, Antibiotic Indication: Surgical prophylaxis 0746 (Given - Provid er: Constanza De La Vega CRNA)0756 (Stopped - Provider: Constanza De La Vega CRNA) lidocaine PF 2% (XYLOCAINE MPF) injection 0.3 mL 0.3 mL, Infiltration, ONE TIME ONLY, 1 dose, On Thu05/13/22 at 0600, Routine 0600 (Due) Continuous Medication Order 05/11/2022 05/12/2022 05/13/2022 lactated ringers infusion IV, at 150 mL/hr, PRE-PROCEDURE CONTINUOUS, Starting on Thu05/13/22 at 0600, Until Thu05/13/22 at 1112, Routine 0710 (New Bag - Prov ider: Constanza De La Vega CRNA)0739 (Continue from Pre-Op - Provider: Constanza De La Vega CRNA)0819 (Fluid Volume - Provider: Constanza De La Vega CRNA) PRN Medication Order 05/11/2022 05/12/2022 05/13/2022 acetaminophen (TYLENOL) 325 mg/10.15 mL oral solution 650 mg 650 mg, Oral, EVERY 4 HOURS PRN, Starting on Thu05/13/22 at 0844, Until Thu05/13/22 at 1112, Pain, Moderate, Routine bacitracin zinc 500 unit/gram topical ointment (CANCELED) INTRA-PROCEDURE PRN, Starting on Thu05/13/22 at 0810, Until Thu05/13/22 at 0823, Routine, Intra-op 0810 (Given - Provid er: Santana Lake MD) documented in this encounter Care Teams Supervisor Fur Floor Worker Relationship Specialty [place] [id number] [address] [place] [id number] PCP - General Internal Medicine 04/08/21 documented as of this encounter
--- OUTSIDE RECORDS SUMMARY | 2024-05-29 17:30 | XMS_ITS | Encounter Summary ---
Author Organization [facility] Address [address] [place]: Epic Prelude [place]T [place] [id number] Care Team Providers Care Investment Accountant Name Role Phone Jai Guadarrama MD Primary Care Provider [phone]- [phone] Encounter Details Date Type Department Care Team (Late st Contact Info) Description 05/07/2022 External Device Data Initial Department [address] [place]: [place] [address] [facility] Emergency, Social History Tobacco Use Types Packs/Day Years [...] Coronavirus/COVID-19? No / Unsure 05/08/2022 8:27 AM TELEPHONIC RN documented as of this encounter Plan of Treatment Not on file documented as of this encounter Visit Diagnoses Not on filedocumented in this encounter Care Teams Investment Accountant Relationship Specialty [place] [address] [address] [place] [phone] PCP - General Internal Medicine 04/08/21 documented as of this encounter
--- OUTSIDE RECORDS SUMMARY | 2024-05-29 17:30 | XMS_ITS | Encounter Summary ---
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 of the esophageal hiatus, the stomach was gently retracted into the abdominal cavity to assess the degree of tethering to the intrathoracic contents. The peritoneum overlying the right rk was incised and the plane along the hernia sac was developed.The dissection was then carried anteriorly and subsequently laterally down the left rk the diaphragm. The base of the crural confluence was dissected free of adhesions to the sac. The hernia sac was then carefully dissected into the mediastinum to its cephalad most aspect. The interface between hernia sac and the intrathoracic contents was carefully and meticulously developed. The sac contents were completely reduced back into the abdominal cavity. At that point the hernia sac was completely excised with care taken to avoid injury to the esophagus, stomach, and vagal nerves. It was also noted that she had a medium sized lipoma located on the anterior lateral aspect of the distal esophagusmeasuring approximately 2 x 2-1/2 cm. Because of the size of this and the potential for enlarging in the future we elected to resect this using electrocautery and this was sent to pathology for further evaluation. We then returned our attention to repair of the hiatal hernia. The distal esophagus was further mobilized to assure no further cephalad tension existed. This allowed the GE junction to f ully rest in the abdominal cavity. Again care was taken to identify and preserve the vagal nerves.The diaphragm itself was closed with running 2 Quill sutures. The crura came together nicely with minimal tension on the repair. We were able to place one instrument between the esophagus and the rk ensuring that the closure was not too tight. The greater curvature was devascularized with the Sonicision and extended to the region of the spleen. The short gastric vessels were carefully taken down as dissection continued to the angle of His.Posterior attachments were freed up, the dissection was continued until about 5 cm of the left diaphragmatic rk was well visualized. The pylorus was then identified and marked approximately 6-8 cm proximally. The greater curvature dissection was extended distally to that area just beyond the angularis incisura. The sleeve dissection was completed and inspected and found to be hemostatic. Next the bougie tube- 37 [place], was advanced to the antrum under direct visualization.. The first staple line was performed using a linear stapler with Purple load- 60 mm. Subsequent staple loads were using the purple linear staplers. Care was taken near the incisura to minimize encroachment, and the final staple load was fired approximately 1 cm away from the esophagus just lateral to the fat pad and taking care to include the entire fundus in the specimen, to minimize injury to the esophagus. There was a technically good staple line with good hemostasis. The staple line was over sewn with 2-0 Strattafix barbed suture in a running fashion laparoscopically to imbricate the staple line. Thetube was slowly withdrawn, and there was no twisting or kinking of the gastric sleeve. A leak test was performed to assess the sleeve and assess for any leaks along the staple line. No leaks, bleeding or kinking of the sleeve was identified and the scope was withdrawn. The patient was flattened. There remained good hemostasis. Next, The remnant stomach was then removed through the 12 mm trocar site under direct vision. The removed stomach was inspected and found to be without gross abnormality. There was no leakage or spillage within the abdomen. The 12 mm trocar site was closed with an 0 Vicryl figure of 8 suture using a suture passer. Then the pneumoperitoneum was released, as the trocars were removed, and there was no bleeding. The wound was irrigated, there was good hemostasis, local anesthetic was injected at each incision site and the skin edges were approximated using interrupted subcutaneous subcuticular 4-0 monocryl suture. Dermabond was applied. The patient tolerated the procedure well, there were no complications,the singletary catheter was removed and the patient was transferred to the recovery room awake and in stable condition. Elias Byrd DO 05/05/2022 1:26 PM [facility] RNET MARKETER * Darlyn-OP - Enedelia Espinosa RN - 05/05/2022 12:13 PM CST Sterile warm nacl used as irrigation. Patient's temperature and forced air warming equipment monitored/regulated by anesthesia. Anesthesia equipment, medications and supplies maintained, cleaned, inspected, checked and restocked by designated anesthesia staff and [facility] anesthesia technicians. Compression sleeves applied and powered on prior to anesthesia induction. Prep solution allowed to dry for a minimal of 3 minutes prior to incision. RNET MARKETER documented in this encounter Miscellaneous Notes * Care Plan - Monae Montoya RN - 05/06/2022 9:24 AM CST Clinical documentation reviewed. Comprehensive Discharge Planning Risk Assessment was completed. Documentation Related to CDPA score CDPA Documentation Ambulation: independent Transferring: independent Toileting: independent Bathing: independent Dressing: independent Eating: independent Communication: understands/communicates w/o difficulty Weight-Bearing Status: no weight-bearing restrictions Living Arrangements: Lives with family member(s) Total Score of 9 or below does not identify immediate needs for discharge. CDPA Risk Score Total Score: 0 Criteria that do not apply: Self-reported walking limitation Disability Age Prior Living Status Please place consult if needs for discharge are identified. Care Management will continue to follow for discharge planning. Monae Motnoya RN, BSN [employer] [id number] Day 1 - Current ([facility]: Adult and Obstetrics) Patient, family, or healthcare designee is participating in individual care plan process Outcome: Met Problem: Discharge Planning Goal: Identify discharge needs upon admission and through discharge Description: Outcome: Progressing RNET MARKETER * Treatment Plan - Yulia Marin RCP - 05/06/2022 8:17 AM CST RT Assess & Treat Note Plan: Pt has no pulmonary hx. Patient does not require therapy at this time. Please reorder Assess and Treat if condition changes. For further information please call the assigned RT. RNET MARKETER * Treatment Plan - Yulia Marin RCP - 05/06/2022 8:16 AM CST Images from the original note were not included. Respiratory Therapy Assess and Treat Protocol- [facility] Approved by: [facility] - Medical Executive Committee Approval Date: 01/30/2022 ORDERS ARE ENTERED ???PER PROTOCOL?? Enter the protocol in the patient???s electronic health record using KelDoc: .rtassessandtreatprotocol Respiratory Therapy orders: Requires a written order for Assess and Treat Protocol (RT41) or IP Consult to Respiratory Therapy (CON21) by the physician or the physician salt cutter. Oxygen desaturation studies (walk studies) must be ordered by the physician unless the IP Consult for Respiratory Therapy includes a statement requesting a walk study if necessary Bronchodilators will be ordered based on classifications CLASSIFICATION *COPD patients may use Ipratropium (Atrovent) *Asthma patients in Exacerbation may use Ipratropium (Atrovent) CLASS/SCORE FREQUENCY MDI AEROSOL HOME THERAPY Class 0/ 0-4 *If patient conditions worsens then reassess no therapy indicated Home Therapy orders can be adhered to as long as the severity score does not call for more therapy Class 1/ 5-8 *Reassess in 24 hrs. *Reassess in 96 hours hrs. after initial assessment *If pt. requests > 3 txs in 24 hours or condition worsens, then reassess. q6 PRN 2 puffs Albuterol 2.5mg Albuterol Class 2/-12 *Reassess in 24 hrs * Reassess in 96 hrs after initial assessment. *If patient condition worsens then reassess q6 or QID and q6 PRN 2puffs Albuterol 2.5mg Albuterol Class 3/13-18 *Reassess in 24 hrs * Reassess in 96 hrs after initial assessment. *If patient condition worsens then reassess q4 and q4 PRN 2 puffs Albuterol 2.5 Mg Albuterol Class *Reassess in 24 hrs * Reassess in 96 hrs after initial assessment. *If patient condition worsens then reassess CONSULT PHYSICIAN for Escalation of Care Mode of Delivery The mode of medication delivery is determined by patient ability or patient request for a specific delivery device and ordered as MDI or Nebulizer. The method of delivery may be changed at any time at the discretion of the Respiratory Therapist based on patient need. The method of delivery is not based on the patient???s classification Metered Dose Inhaler (MDI) is administered when: High Flow Nebulizer (HFN) is administered when: a. Medication is available in an MDI a. Medication is not available in MDI b. Patient is alert, cooperative and able to follow commands/instructions b. Patient is unable to perform an MDI c. Patient is able to take a deep breath and perform a minimum of a 6 second breath hold c. Patientis not able to respond to a verbal command d. Patient demonstrates ability to use MDI with spacer effectively d. Patient???s home regimen is with a nebulizer and the Physician does not desire to change to a MDI e. Patient has existing tracheostomy or artificial airway. e. Patient receiving NIPPV and not able to be removed for MDI 4. Lung expansion or Airway clearance may be ordered with one of the following frequencies: TID or match the ordered bronchodilator therapy schedule or Q6 PRN if self-directed (RT feels the patient can perform without direction) following the algorithm below. Instructions General Purpose: The Assess & Treat protocol is made up of two branches; both branches of the protocol will be applied for every patient assessment performed. Adult Bronchodilation To provide assessment of patients receiving inhaled medications. To determine appropriate dosage, frequency, and mode of bronchodilator therapy. To assure that patients receive at least the equivalent of their respiratory home regimen. To identify patients who may require education in understanding how, when, or why they take their respiratory medications. Adult Airway Clearance & Lung Expansion To provide assessment of patients in need of airway clearance or lung expansion therapy. To provide various adjuncts to aid in mobilization of secretions and to treat atelectasis. To provide encouragement and aid in patient???s performance of deep breathing exercises. To guide the Respiratory Therapist through an algorithm that determines the best modality for that patient. In addition, each patient ordered into the Assess and Treat Protocol will be evaluated for patient education needs and oxygen desaturation evaluations (walk studies) that ideally need to be met priorto discharge Policy: 1. Requires a written order for Assess and Treat Protocol (RT41) or IP Consult to Respiratory Therapy (CON21) by the physician or the physician salt cutter. 2. Only licensed Respiratory Therapists will be permitted to assess patients using the standardizedRespiratory Assessment for the Assess & Treat Protocol. 3. A copy of the protocol will be placed in the electronic medical record. Respiratory Therapists are required to use the Assess & Treat Protocol flowsheet and worksheetsto provide appropriate communication between health care providers. An assessment note will also beplaced in the medical record outlining the encounter and treatment plan. Changes in mode, frequency, or dosage will be communicated to all appropriate personnel. The RT Assess and Treat Protocol should be ordered on all patients who received mechanical ventilation and are ready for transfer out of the ICU setting. CVICU patients will be enrolled after Extubation even if they are still in the CVICU. The Assess and Treat Protocol will allow for patients to continue home regimen medications as listed in their CEMENT TRUCK DRIVER medication list as appropriate. Patients in [facility] and any other 23 hour observation unit who receive orders for inhaled medications via MDI will be changed to the liquid/ nebulizer form of the medication (as available) during their stay by the Respiratory Therapist per protocol. Oxygen desaturation studies (walk studies) must be ordered by the physician unless the IP Consult for Respiratory Therapy includes a statement requesting a walk study if necessary. To meet Medicare requirements, walk studies must be performed within 48 hours of discharge. Walk studies are not indicated for patients transitioning to a fdc facility, rehabilitation facility, or who have not required oxygen since admission unless otherwise specified by the physician. ASSESS AND TREAT PROTOCOL-ADULT BRONCHODILATION PROCEDURE Indications: Bronchospasm/wheezing (Reactive Airway Disease, Asthma, Emphysema, Chronic Bronchitis, Bronchiolitis) Current Home Bronchodilator usage including short-acting, long-acting, inhaled corticosteroid, anticholinergic, and combination respiratory medications. Other indications stated in the [place] [employer] Care???s Clinical Practice Guidelines, GOLD COPD Guidelines, and NHLBI Asthma Guidelines. Precautions: N/A Implementation: Scoring the Patient The Respiratory Therapist will evaluate and score the patient???s respiratory status prior to medication delivery using the protocol???s scoring worksheet (shown below). All patient assessment parameters listed below as ???Items?? are to be evaluated. Determine total score (???Findings?? ) based on total points earned from each respiratory item assessed. CLINICAL FINDING 0 1 2 3 4 POINTS BREATH SOUNDS Clear Diminished unilaterally Diminished bilaterally &/or crackles Absent unilaterally &/or wheezes or rhonchi Absent bilaterally, severely diminished or severe wheezing RESPIRATORY RATE RR 8-20 RR 21-25 RR26-30 RR 31-35 RR > 35 WORK OF BREATHING Regular pattern (NO Distress) Dyspnea on exertion, irregular RR pattern Increased at rest Use of Accessory muscles, prolonged expiration, conversational dyspnea Severe shortness of breath, accessory muscle usage, dyspnea at rest O2 REQUIREMENT NO Oxygen 1-3 Liters (FiO2 = 25-35%) 4-6 Liters (FiO2 = 35-50%) FiO2 = 50-90% FiO2 =90-100% PULMONARY HISTORY / STATUS NO History Pneumonia(uncomplicated) History of Pulmonary disease w/ admission for other reason Pulmonary impairment - Acute or chronic Severe Exacerbation Smoking history NO Smoking Past History of Smoking but has quit > 1 year Smoking history < 1 pack a day Smoking history > 1 pack a day Current smoker > 2 packs per day Classifying the Patient Patients are classified based on their admission diagnosis and the severity score determined by theprotocol???s standardized Respiratory Assessment. This mechanism determines their respiratory system status and the severity of symptoms. Based on this classification score the therapist determines the frequency of medication administration as well as how often they are reassessed. CLASSIFICATION *COPD patients may use Atrovent *Asthma patients in Exacerbation may use Atrovent CLASS/SCORE FREQUENCY MDI AEROSOL HOME THERAPY Class 0/ 0-4 *If patient conditions worsens then reassess no therapy indicated Home Therapy orders can be adhered to as long as the severity score does not call for more therapy Class 1/ 5-8 *Reassess in 24 hrs. *Reassess in 96 hours hrs. after initial assessment *If pt. requests > 3 txs in 24 hours or condition worsens, then reassess. q6 PRN 2 puffs Albuterol 2.5mg Albuterol Class /- *Reassess in 24 hrs * Reassess in 96 hrs after initial assessment. *If patient condition worsens then reassess q6 or QID and q6 PRN 2puffs Albuterol 2.5mg Albuterol Class 07/28- *Reassess in 24 hrs * Reassess in 96 hrs after initial assessment. *If patient condition worsens then reassess q4 and q4 PRN 2 puffs Albuterol 2.5 Mg Albuterol Class 09/03- *Reassess in 24 hrs * Reassess in 96 hrs after initial assessment. *If patient condition worsens then reassess CONSULT PHYSICIAN for Escalation of Care Asthma Exacerbation patients may have a Peak flow (PEFR), if patient is able, before and after every treatment Therapy effectiveness will be evaluated by pulmonary assessment and predicted/personal best values. For Asthma Exacerbation patients the dosage may be increased to 5 Mg Albuterol or 8 puffs Albuterol if 1st treatment does not improve breath sounds, PEFR, and patient???s subjective reportof symptom relief. Patients are reassessed per classification with all assessment parameters and given a new score. AnRCP can reassess as needed to manage the needs of the patient. Patients are to be maintained on their home regimen even if their score indicates treatments on a less frequent administration schedule. Patients continuing on Home Regimen will be reassessed after 96 hours and then no further reassessment will occur unless patient condition worsens. The Assess andTreat order may be completed at that time if the patient is being managed by their Bar Waiter/Waitress. Determine Mode of Delivery using chart below. All MDI therapy will be taught with a spacing device. Mode of Delivery The mode of medication delivery is determined by patient ability or patient request for a specific delivery device. The method of delivery may be changed at any time at the discretion of the Respiratory Therapist based on patient need. The method of delivery is not based on the patient???s classification. Metered Dose Inhaler (MDI) is administered when: High Flow Nebulizer (HFN) is administered when: a. Medication is available in an MDI a. Medication is not available in MDI b. Patient is alert, cooperative and able to follow commands/instructions b. Patient is unable to perform an MDI c. Patient is able to take a deep breath and perform a minimum of a 6 second breath hold c. Patientis not able to respond to a verbal command d. Patient demonstrates ability to use MDI with spacer effectively d. Patient???s home regimen is with a nebulizer and the Physician does not desire to change to a MDI e. Patient has existing tracheostomy or artificial airway. e. Patient receiving NIPPV and not able to be removed for MDI 4)Considerations Review patient???s Prior to Admission (CEMENT TRUCK DRIVER) medication list. The Respiratory Therapist will consider ordering any of the following meds based on the patient???s home regimen: Short and long-acting bronchodilators, inhaled corticosteroids, anticholinergics, and combination respiratory medications. Use of the preferred [facility] formulary equivalent should be ordered per Assess and Treat Protocol for use throughout the patients hospital stay. Patients diagnosed with a chronic lung disease, such as COPD or Asthma, will be evaluated for the benefit of a controller medication therapy (long-acting bronchodilators, inhaled corticosteroids, anticholinergics, and combination respiratory medications) if not already on the CEMENT TRUCK DRIVER medication list. The Respiratory Therapist will contact the attending physician if a controller therapy may benefit the patient. Xopenex (Levalbuterol) Orders will be followed as below: See Pharmacy Policy, Section: APPROVED THERAPEUTIC INTERCHANGES FOR [facility] Title: Beta Agonists Patients taking home regimen Xopenex will continue with home regimen and at home frequency as long as there is an order from the physician that includes; do not substitute and rationale for need to use levalbuterol. An adverse reaction or hypersensitivity is demonstrated by a 20% increase in heart rate above baseline during or within 10 minutes of administration of albuterol or tremors/shakiness that is noted bythe therapist or reported by the patient that resolve with the use of Xopenex. If the patent demonstrates hypersensitivity to Albuterol, Xopenex will be used. Patients that score for PRN frequency will be given a PRN treatment with the initial assessment unless the patient refuses the therapy. Contact physician at any time for questions about patient? s assessment. i.e. Assessment score is > 16, unable to determine an assessment parameter, home regimen medications not included in protocol, changes in frequency or delivery method for other inhaled medications which do not include Albuterol or Ipratropium. A Medical Emergency Team may be considered at any time. Relative Contraindications: N/A ASSESS AND TREAT PROTOCOL-ADULT AIRWAY CLEARANCE & LUNG EXPANSION PROCEDURE A: Indications: To aid in the mobilization of retained secretions or for sputum retention not responsive to spontaneous or directed coughing. To treat atelectasis. To optimize delivery of bronchodilators in patients receiving bronchial hygiene therapy. For patients with decreased breath sounds or adventitious sounds suggesting secretions in the airway. For patients with abnormal chest x-ray consistent with atelectasis, mucus plugging, infiltrates, orpneumonia. Precautions: N/A Implementation: Gather patient???s objective data needed for pulmonary assessment to determine appropriate airway clearance or lung expansion intervention. Pulmonary assessment should include pulmonary history, co-morbidities, oxygen requirement, breath sounds, current chest X-ray (CXR), chest CT, patient???s ability to ambulate, the amount, color and quality of sputum being produced, laboratory data, cultures, and any other tests that are being ordered. CXR interpretation terms that require intervention for lung expansion or airway clearance include ???atelectasis?? , ???infiltrate?? , ???consolidation?? , or the suspicion of ???pneumonia?? . Assess patient???s ability to comply with specific optimal respiratory interventions such as: ability to effectively cough, , ability to follow directions, ability to independently perform interventions if applicable, ability to seal a mouthpiece, ability to tolerate specific therapies (such as a vest), and/or patient???s willingness to participate in optimal respiratory plan. Refer to the algorithm below to determine specific respiratory intervention(s) that apply to the patient. 5. Frequency of therapy will be TID or match the ordered bronchodilator therapy Schedule. Criteria for diagnosis of atelectasis (at least one): Radiological interpretation on chest x-ray. Terms to look for include ???infiltrates?? , ???consolidation?? , or ???atelectasis?? . High oxygen requirement. (FIO2 > .50 or flow > 10LPM per HFNC). Absent breath sounds over affected area. If patient is ambulatory, instruct patient in cough and deep breathing, and encourage ambulation. If patient is not ambulatory, use PEP device with or without mask for lung recruitment. Criteria for diagnosis of Pneumonia or for CXR/CT with terms ???infiltrates?? , or ???consolidation?? : Breath sounds that are rhonchi (coarse) that do not clear with cough. If patient has effective cough and is ambulatory, instruct patient in deep breathing and coughing. If patient has effective cough but needs assistance to mobilize sputum, consider IPV, vest or vibratory PEP therapy. If patient has a weak or ineffective cough, consider IPV, vest, or handheld mucous clearance device. If patient has muscular weakness, use Cough Assist and /or Quad Cough. Quad cough will be given on a PRN frequency, and may be used in conjunction with Cough Assist. If patient is unable to achieve a therapeutic benefit of sputum mobilization from these methods dueto the patient???s inability to participate in care, nasal tracheal suctioning may be ordered. Alsoconsider ordering a nasal trumpet to protect nasal passages if frequent suctioning is anticipated. Frequency of therapy will be TID or match the ordered bronchodilator therapy schedule. Therapy will be a minimum TID frequency for 24 hours unless patient is able to follow directions without coaching, demonstrates appropriate technique, and will use the device independently, if applicable. Handheld mucous clearance device, oscillatory PEP device will be ordered at a Q6 PRN frequencyfor patients that demonstrate both optimal technique, and ability for independent use. If there is no patient improvement, or patient does not tolerate chosen modality, choose another modality in the arm of the algorithm and reassess daily. After 48 hours of second modality and no patient improvement, consult the Physician. Criteria for evaluation of strong cough: Ability to take an adequate deep breath as defined above followed by ability to close glottis and produce an audible cough Assessment of Outcome: Change in sputum production; improved ease of clearing secretion, increased volume of secretions during and after treatments. Change in breath sounds - with effective therapy, breath sounds may clear or the movement of secretions into the larger airways may cause a change in breath sounds. Note an effect that coughing may have had on the breath sounds Patient subjective response to therapy. Change in chest x-ray - resolution or improvement of atelectasis and localized infiltrates may be slow or dramatic Relative Contraindications: The following should be carefully evaluated and the patient monitored during therapy. Patients unable to tolerate the increased work of breathing during procedures. Increased work of breathing may lead to hypoventilation and hypercarbia. Intracranial pressure (ICP) > 20 mmHg. may increase during therapy Hemodynamic instability may result in further cardiovascular compromise secondary to potential decreased venous return. Recent facial, oral, and skull surgery or trauma. Acute sinusitis. Epistaxis. Esophageal surgery (positive pressure not allowed, consult physician for vest therapy). Bariatric surgery (positive pressure not allowed, consult physician for vest therapy.) Hemoptysis. Nausea and/or air swallowing, with increased potential of vomiting and aspiration. Known or suspected tympanic membrane rupture or other middle ear pathology. Untreated pneumothorax, flail chest, pulmonary barotraumas. RNET MARKETER * Care Plan - Farhat Godinez RN - 05/06/2022 6:44 AM CST Patient is: A&O x4 Pain Range/Score during the shift: 4-5 Medication that have helped or need to be changed: IV toradol Void or Bowel Movement: voiding without diff; no BM this shift Dressing: Diet Tolerated: Yes Skin Concerns: none present Behaviors: calm and cooperative Activity: SBA Discharge: today Patient has remained free of falls this shift. Patient is stable and resting comfortably. Pathway Day of Surgery - Current (INTERDIS PW: BARIATRIC SURGERY - POST-OP) Fluid Management: (Maintain Hydration) Patient verbalizes understanding of the importance of hydration. Urine output equal to or greater than 30 mL/Hour. Outcome: Met Activity/Rehab: Patient will be able to perform ADLs and ambulate day of surgery with minimal assistance. Encourage ambulation within two hours after recovery from anesthesia. Outcome: Met Hemodynamics: Patient able to maintain SBP greater than 90 and less than 150 mmHg, HR greater than 50 and less than 100/min, Respirations greater than 10/min and less than 29/min, O2 sat greater thanor equal to 92%. Outcome: Met Pain Management: Patient verbalizes pain reduction and determines acceptable level/goal (0-10) thatwill allow for maximal function with ADLs. Outcome: Met Surgical Site: (Impaired Skin Integrity) Patient is free of signs of infection, (fever, redness, swelling, drainage) Wound and drain assessment (target </= 30 mL/day). Outcome: Met Nutrition: Patient verbalizes understanding of dietary restriction and modification. Patient verbalizes none or decreased nausea and vomiting. Outcome: Met Respiratory: Patient verbalizes understanding of and compliance with O2 devices. Outcome: Met Neurovascular: (DVT/VTE Prevention) Free of signs and symptoms of DVT/ VTE. Ambulation day of surgery. Encourage ambulation within two hours after recovery from anesthesia. Outcome: Met Discharge Planning: Discharge needs identified and patient verbalizes understanding of medications and follow-up. Outcome: Met Day 1 - Current ([facility] Pathway: Adult and Obstetrics) Patient, family, or healthcare designee is participating in individual care plan process Outcome: Met Patient, family, or healthcare designee understands side effects of medications Outcome: Met Pathway Day 1 - Current (INTERDIS PW: SKIN/PRESSURE INJURY PREVENTION) Skin Integrity/Integumentary: Interventions initiated to maintain intact skin. Patient maintains intact skin with Adan Score maintained or improved. Outcome: Met Nutrition Management: Patient/health care delegate understands importance of adequate protein and fluid intake. Outcome: Met Bladder & Bowel Movement: Moisture management for incontinence initiated and maintained or patient is continent of urine/stool. Outcome: Met Activity/Rehab: Patient/health care delegate understands repositioning/offloading techniques or patient moves independently. Outcome: Met RNET MARKETER * Care Plan - Scarlet Moser RN - 05/05/2022 5:59 PM CST Patient is:ox4 sleepy Pain Range/Score during the shift:6-9 Medication that have helped or need to be changed:toradol, hyacet Void or Bowel Movement:monitor for post op void Dressing:lap sites x6 cdi with skin adhesive and abd binder Diet Tolerated:tolerating sips, Skin Concerns:no issues Behaviors:calm and cooperative Activity:encourage to get up to help with gas pain Discharge:plan home tomorrow if cleared by doc and pain controlled Patient has remained free of falls this shift. Patient is stable and resting comfortably. RNET MARKETER * Care Plan - Cristino Ricks RN - 05/05/2022 1:24 PM CST Potential for pain related to surgical/procedural intervention Interventions: Assess level of pain/comfort utilizing verbal/nonverbal pain scales; assess culturalor anglican indicators attached to pain; administer pain medications as prescribed; utilize non-pharmacologic pain control and comfort measures Expected Outcome: Patient demonstrates and reports adequate pain control Outcome Met: prn meds available, pain well controlled Potential for alteration in thermoregulatory, circulatory, respiratory fluid & electrolyte status Interventions: Perform ongoing physical assessment; maintenance of airway or mechanical ventilation; monitor level of consciousness; initiate safety measures; observe patient???s respiratory status and oxygen saturation; obtain measurements of ongoing hemodynamic parameters, cardiac rhythm, and temperature; monitor intake and output; inspect wound dressings and/or drain output; perform prescribedtherapeutic regimens, treatments and tests; document and/or communicate care given Expected Outcome: Patient will maintain functional status compatible with preoperative status Outcome Met: vss, normothermic, patient able to maintain O2 sats, no bleeding or hematoma from surgical site RNET MARKETER * Care Plan - Amber Guzman RN - 05/05/2022 8:56 AM CST Knowledge deficit related to procedure/environment Interventions: Assess learning needs and willingness to learn; give clear, concise explanations of the environment and sequence of events surrounding the periop experience; address patient/family questions and concerns; provide teaching as indicated, provide teaching related to postoperative pain assessment utilizing pain scales Expected Outcome: Patient verbalizes or demonstrates awareness/understanding of surgery and perioperative experience Outcome Met: patient understands darlyn-op process RNET MARKETER documented in this encounter Plan of Treatment Scheduled Orders Name Type Priority Associated Diagnoses Orde r Schedule RT ASSESS AND TREAT Respiratory Care Routine ONE TIME for 1 Occurrences starting 05/05/2022 until 05/05/2022 documented as of this encounter Procedures Procedure Name Priority Date/Time Associated Diagnosis Comments TELEMETRY REPORT 05/09/2022 11:0 6 AM INTERNET MARKETER TELEMETRY REPORT 05/09/2022 11:0 5 AM INTERNET MARKETER CBC WITHOUT DIFFERENTIAL Routine 05/06/2022 5:05 AM INTERNET MARKETER BASIC METABOLIC PANEL Routine 05/06/2022 5:05 AM INTERNET MARKETER PATHOLOGY Pathology 05/05/2022 12:28 PM INTERNET MARKETER Morbid obesity HERNIA PARAESOPHAGEAL REPAIR LAPAROSCOPIC 05/05/2022 9:49 AM INTERNET MARKETER Morbid obesity Case Notes VITA MCKEON PP TN LAPS GSTRC RSTRICTIV PX LONGITUDINAL GASTRECTOMY 05/05/2022 9:49 AM INTERNET MARKETER Morbid obesity Case Notes VITA MCEKON PP VERIFICATION BLOOD GROUP Stat 05/05/2022 9:29 AM INTERNET MARKETER Encounter for blood typing POC , URINE Routine 05/05/2022 8:55 AM INTERNET MARKETER PREPARE RED BLOOD CELLS Routine 05/05/2022 12:15 AM INTERNET MARKETER PREPARE RED BLOOD CELLS Routine 05/05/2022 12:15 AM INTERNET MARKETER documented in this encounter Results * TELEMETRY REPORT (05/09/2022 11:06 AM INTERNET MARKETER) Provider Scanning ECG ORDERABLES * TELEMETRY REPORT (05/09/2022 11:05 AM INTERNET MARKETER) Provider Scanning ECG ORDERABLES * (ABNORMAL) BASIC METABOLIC PANEL (05/06/2022 5:05 AM INTERNET MARKETER) SODIUM 138 136 - 145 mmol/L 05/06/2022 7:[address] [facility] [employer] [facility] POTASSIUM 4.0 3.5 - 5.0 mmol/L 05/06/2022 7:01 AM INTERNET MARKETER [employer] [facility] - [facility] CHLORIDE 104 98 - 107 mmol/L 05/06/2022 7:[address] [facility] [employer] [facility] CO2 21(L) 22 - 29 mmol/L 05/06/2022 7:[address] [facility] [employer] [facility] - [facility] CALCIUM 8.7 8.6 - 10.2 mg/dL 05/06/2022 7:[address] [facility] [employer] [facility] BUN 8 6 - 20 mg/dL 05/06/2022 7:[address] [facility] [employer] [facility] CREATININE 0.73 0.51 - 0.95 mg/dL 05/06/2022 7:01 AM INTERNET MARKETER [employer] [facility] GLUCOSE 91 74 - 99 mg/dL 05/06/2022 7:01 AM INTERNET MARKETER [employer] [facility] GFR >60 >=60 mL/min/1.7 3 sq meter 05/06/2022 7:01 AM INTERNET MARKETER [employer] [facility] Comment:eGFR calculated with 2020 CKD-EPI equation. Vegetarian diet, extremely high or low muscle mass, and may affect results. Cystatin C with Glomerular Filtration Rate is a suitable alternative for these patients. ANION GAP 13 8 - 16 mmol/L 05/06/2022 7:[address] [facility] [employer] [facility] - [facility] Blood Venipuncture / Unknown 05/06/2022 5:05 AM INTERNET MARKETER 05/06/2022 6:06 AM INTERNET MARKETER Jerrell Byrd DO CHEMISTRY ORDERABLES [employer] [facility] - [facility] CLIA# [id number] [address] [facility] [place] [address] * (ABNORMAL) CBC WITHOUT DIFFERENTIAL (05/06/2022 5:05 AM INTERNET MARKETER) WBC 11.2(H) 4.0 - 9.8 K/uL 05/06/2022 6:[address] [facility] [employer] [facility] - [facility] RBC 4.25 3.90 - 4.90 M/uL 05/06/2022 6:26 AM INTERNET MARKETER [employer] [facility] - [facility] HEMOGLOBIN 11.9 11.8 - 14.8 g/dL 05/06/2022 6:[address] [facility] [employer] [facility] - [facility] HEMATOCRIT 37.2 35.5 - 44.0 % 05/06/2022 6:[address] [facility] [employer] [facility] - [facility] MCV 87.5 82.0 - 99.0 fL 05/06/2022 6:26 AM INTERNET MARKETER [employer] [facility] - [facility] MCH 28.0 27.2 - 32.6 pg 05/06/2022 6:26 AM [employer] - [facility] MCHC 32.0 31.5 - 35.5 g/dL 05/06/2022 6:26 AM [employer] [facility] - [facility] PLATELETS 246 140 - 350 K/uL 05/06/2022 6:26 AM INTERNET MARKETER [employer] - [facility] MPV 12.2 9.3 - 12.4 fL 05/06/2022 6:26 AM [employer] [facility] - [facility] RDW 12.4 11.5 - 14.5 % 05/06/2022 6:26 AM INTERNET MARKETER [facility] RDW-STDEV 39.8 37.1 - 48.7 fL 05/06/2022 6:26 AM INTERNET MARKETER [facility] Blood Venipuncture / Unknown 05/06/2022 5:05 AM INTERNET MARKETER 05/06/2022 6:07 AM INTERNET MARKETER Jerrell Byrd DO HEMATOLOGY ORDERABLE S Performing Organization Address [facility]/State/ZIP Co de Phone Number [facility] CLIA# [id number] [address] [place] [address] * PATHOLOGY (05/05/2022 12:28 PM INTERNET MARKETER) CASE REPORT Surgical Pathology Report ? Case: [id number] ? Authorizing Provider: ??Jerrell Byrd, DO ? Collected: ? 05/05/2022 12:28 PM ? Ordering Location: ? [facility] ?Received: ?05/05/2022 02:06 PM ? Operating Room ? Pathologist: ? Jemma Rivero MD ? Specimens: ?? A) - Soft Tissue, esophageal lipoma ? B) - Stomach ? 2 5:06 PM [facility] [facility] FINAL DIAGNOSIS Soft tissue, esophageal lipoma, excision: -Benign adipose tissue, compatible with lipoma. Stomach, laparoscopic longitudinal gastrectomy: -Chronic inflammation, mild. -No evidence of dysplasia or malignancy. 2 5:06 PM [facility] [employer] S DESCRIPTION The specimens are received in two containers each labeled Renata Lei . Received in the first container additionally labeled esophageal lipoma is an unoriented ovoid segment of soft yellow fatty tissue measuring 2.5 x 2.3 x 1.3 cm. The specimen is inked black entirely and sectioned to show soft yellow fatty cut surface. [employer] sections are submitted labeled A1. Received in the second container additionally labeled stomach is an 18 x 4.5 x 2 cm wedge-shaped segment of stomach. The serosa is smooth and dull. A staple line is present along 1 edge. The mucosa is langston-pink with focal langston putative polyps measuring 0.2 cm in greatest dimension. [employer] sections are submitted labeled B1 through B2 including putative polyps in B2 with serosa inked black. [facility] 2 5:06 PM [facility] [employer] [facility] MICROSCOPIC DESCRIPTION The slides are labeled [id number] and Renata Lei. Sections are of the esophageal lipoma reveal benign adipose tissue, compatible with lipoma. Sections of stomach reveal mild chronic inflammation and no evidence of dysplasia or malignancy. 2 5:06 PM [facility] OPERATIVE PROCEDURE 1: GASTRECTOMY LONGITUDINAL LAPAROSCOPIC 2: HERNIA PARAESOPHAGEAL REPAIR LAPAROSCOPIC 2 5:06 PM [facility] CLINICAL INFORMATION Morbid obesity [E66.01] E66.01-Morbid obesity 2 5:06 PM [facility] COMMENT Special stain, immunohistochemical, and/or in situ hybridization results are interpreted with controls that demonstrate appropriate staining reactions. Note on use of immunohistochemistry reagents and in situ hybridization probes: These tests were developed and their performance characteristics determined by [facility] Department of Laboratory Medicine. It has not been cleared or approved by the U.S. Food and Drug Administration. The FDA has determined that such clearance or approval is not necessary. The test is used for clinical purposes. It should not be regarded as investigational or for research. This laboratory is certified to perform high complexity testing. Frozen section/operating room consultation, gross examination and dissection, and case sign out may have been performed in part or completely in the following laboratories: [facility], [place] #[id number] [address] [place] [address] [facility], [place] #[id number] [address] [place] [address] [facility]/[place], [place] #[id number] [address] [place] [address] This report was created with the [employer] voice-activated dictation system. Inherent to this system is the possibility of syntax, grammar, punctuation and other errors that could impact the interpretation of the report. If there are interpretative questions about aspects of this report, please contact the performing pathologist. 2 5:06 PM [facility] Tissue (Soft Tissue) Collection / Unknown 05/05/2022 12:28 PM INTERNET MARKETER 05/05/2022 2:06 PM INTERNET MARKETER Tissue specimen (specimen) ENTIRE STOMACH / Unknown 05/05/2022 12:46 PM INTERNET MARKETER 05/05/2022 2:06 PM INTERNET MARKETER Jerrell Byrd DO PATHOLOGY/CYTOLOGY O SUSSYERAAMADEO Performing Organization Address [facility]/ZIP Co de Phone Number [facility] CLIA# [id number] [address] [place] [address] * VERIFICATION BLOOD GROUP (05/05/2022 9:29 AM INTERNET MARKETER) ABO GROUP O 05/05/2022 10:25 AM INTERNET MARKETER [employer] [facility] -- [facility] RH (D) TYPE Positive 05/05/2022 10:25 AM INTERNET MARKETER [employer] [facility] -- [facility] Blood Venipuncture / Unknown 05/05/2022 9:29 AM INTERNET MARKETER 05/05/2022 9:29 AM INTERNET MARKETER Pamela Silva MD BLOOD BANK ORD ERABLES Performing Organization Address [facility]/ZIP Co de Phone Number [facility] CLIA# [id number] [address] [place] [address] * POC , URINE (05/05/2022 8:55 AM INTERNET MARKETER) HCG QUAL URINE Negative Negative 05/05/2022 8:55 AM INTERNET MARKETER [facility] Urine 05/05/2022 8:55 AM INTERNET MARKETER 05/05/2022 3:21 PM INTERNET MARKETER Jerrell Byrd DO POINT OF CARE TESTIN G [facility] CLIA# [id number] [address] [place] [address] * PREPARE RED BLOOD CELLS (05/05/2022 12:15 AM INTERNET MARKETER) COMPONENT TYPE [id number] [facility] COMPONENT IDENTIFICATION [id number] [facility] UNIT ABO O [employer] [facility] POS [facility] [employer] Compatible [facility] COMPONENT STATUS Returned [facility] COMPONENT EXPIRATION DATE/TIME [id number] [facility] COMPONENT CODING SYSTEM [address] [facility] 05/05/2022 12:1 5 AM INTERNET MARKETER Jerrell Byrd DO LAB TRANSFUSION GOSIA QUISPE [facility] CLIA# [id number] [address] [place] [address] * PREPARE RED BLOOD CELLS (05/05/2022 12:15 AM INTERNET MARKETER) COMPONENT TYPE [id number] [facility] COMPONENT IDENTIFICATION [id number] [facility] ABO O [facility] POS [facility] Compatible [facility] COMPONENT STATUS Returned [facility] COMPONENT EXPIRATION DATE/TIME [id number] [facility] COMPONENT CODING SYSTEM [address] [facility] 05/05/2022 12:1 5 AM INTERNET MARKETER Jerrell Byrd DO LAB TRANSFUSION GOSIA QUISPE Performing Organization Address City/[facility]/ZIP Co de Phone Number [facility] CLIA# [id number] [address] [place] [address] documented in this encounter Visit Diagnoses Diagnosis S/P laparoscopic surgery- Primary Other postprocedural status Encounter for blood typing Morbid obesity Morbid obesity with body mass index of 40.0-49.9 Paraesophageal hernia Diaphragmatic hernia without mention of obstruction or gangrene Lipoma of intra-abdominal organ Lipoma of intra-abdominal organs documented in this encounter Administered Medications Inactive Administered Medications - up to 3 most recent administrations Medication Order MAR Action Action Date Dose Rate Site escitalopram oxalate (LEXAPRO) tablet 10 mg 10 mg, Oral, DAILY, First dose on Thu05/06/22 at 0900, Until Discontinued, Routine, Previous Med: escitalopram oxalate (LEXAPRO) 10 mg tablet - Orig Sig - Take 10 mg by mouth daily. Given 05/06/2022 8:53 AM INTERNET MARKETER 10 mg heparin injection 5,000 Units 5,000 Units, subCUT, PRE-PROCEDURE ONCE, 1 dose, Starting on Thu05/05/22 at 0846, Until Thu05/05/22 at 0925, Routine, Pre-op Given 05/05/2022 9:25 AM INTERNET MARKETER 5,000 Units Arm, Left heparin injection 5,000 Units 5,000 Units, subCUT, EVERY 8 HOURS, First dose on Thu05/05/22 at 2000, Until Discontinued, Routine, Post-op - Floor Given 05/06/2022 5:30 AM INTERNET MARKETER 5,000 Units Abdomen, Right Lower Quadrant Given 05/05/2022 8:49 PM INTERNET MARKETER 5,000 Units A bdomen, Right Lower Quadrant HYDROcodone-acetaminophen (HYCET) 7.5-325 mg/15 mL oral solution 15 mL 15 mL (7.5 mg), Oral, EVERY 4 HOURS PRN, Starting on Thu05/05/22 at 1620, Until Thu05/06/22 at 1724, Pain (See admin instructions), Routine, Post-op - Floor Given 05/06/2022 10:39 AM INTERNET MARKETER 15 mL HYDROmorphone (DILAUDID) 2 mg/mL injection 0.2 mg 0.2 mg, IV, POST-PROCEDURE Q 5 MINUTES PRN, 5 doses, Starting on Thu05/05/22 at 1012, Until Thu05/05/22 at 1618, Pain, Routine, PACU Given 05/05/2022 2:13 PM INTERNET MARKETER 0.2 mg Given 05/05/2022 2:04 PM INTERNET MARKETER 0.2 mg ketorolac (TORADOL) injection 15 mg 15 mg, IV, EVERY 6 HOURS PRN, Starting on Thu05/05/22 at 1620, Until Thu05/06/22 at 1619, Other (See Comment), Cramping or aching pain, Routine, Post-op - Floor Given 05/06/2022 10:39 AM INTERNET MARKETER 15 mg Given 05/05/2022 11:13 PM INTERNET MARKETER 15 mg Given 05/05/2022 4:48 PM INTERNET MARKETER 15 mg lactated ringers infusion IV, at 125 mL/hr, PRE-PROCEDURE CONTINUOUS, Starting on Thu05/05/22 at 0900, Until Thu05/05/22 at 1618, Routine, Pre-op New Bag 05/05/2022 9:22 AM INTERNET MARKETER 125 mL/hr lactated ringers infusion IV, at 125 mL/hr, CONTINUOUS, Starting on Thu05/05/22 at 1630, Until Thu05/06/22 at 1724, Routine, Post-op - Floor New Bag 05/06/2022 12:22 AM INTERNET MARKETER 125 mL/hr Rate Verify 05/05/2022 4:30 PM INTERNET MARKETER 125 mL/hr morphine 4 mg/mL injection 4 mg 4 mg, IV, EVERY 4 HOURS PRN, Starting on Thu05/05/22 at 1620, Until Thu05/06/22 at 1724, Pain (See admin instructions), Pain, Break-Through, Routine, Post-op - Floor Given 05/06/2022 12:17 AM INTERNET MARKETER 4 mg naloxone (NARCAN) 0.4 mg/mL injection 0.1 mg 0.1 mg, IV, SEE ADMIN INSTRUCTIONS, Starting on Thu05/05/22 at 1012, Until Thu05/06/22 at 1724, Routine, PACU ondansetron (ZOFRAN) 4 mg/2 mL injection 4 mg 4 mg, IV, POST-PROCEDURE ONCE PRN, 1 dose, Starting on Thu05/05/22 at 1013, Until Thu05/05/22 at 1337, Nausea/Emesis, Routine, PACU Feeding Started 05/05/2022 1:37 PM INTERNET MARKETER 4 mg pantoprazole (PROTONIX) injection 40 mg 40 mg, IV, DAILY, First dose on Thu05/06/22 at 0900, Until Discontinued, Routine, Post-op - Floor, Indication: Gastroesophageal reflux disease (GERD) Given 05/06/2022 9:00 AM INTERNET MARKETER 40 mg thiamine (VITAMIN B-1) 100 mg, folic acid 1 mg in dextrose 5% 100 mL IVPB IV, at 230 mL/hr, POST-PROCEDURE ONCE, 1 dose, Starting on Thu05/05/22 at 1800, Until Thu05/05/22 at 1830, Routine, Post-op - Floor New Bag 05/05/2022 6:00 PM INTERNET MARKETER 230 mL/hr documented in this encounter Active and Recently Administered Medications Times are shown in INTERNET MARKETER. Scheduled Medication Order 05/04/2022 05/05/2022 05/06/2022 bupivacaine-EPINEPHrine (PF) (SENSORCAINE MPF WITH EPI) 0.5 %-1:200,000 injection 250 mg 250 mg (50 mL), Infiltration, ONE TIME ONLY, 1 dose, On Thu05/05/22 at 1100, Routine, Intra-op 1100 (Canceled Entry - Provider: Scarlet Moser RN) ceFAZolin in sterile water (ANCEF) 2 gram/20 mL IV Syringe (PREMIX) 2,000 mg (COMPLETED) 2,000 mg, IV, PRE-PROCEDURE ONCE, 1 dose, Starting on Thu05/05/22 at 0846, Until Thu05/05/22 at 1201, Routine, Pre-op, Antibiotic Indication: Surgical prophylaxis 1201 (Given - Provider: Chandan Luo Jr., AA-C) escitalopram oxalate (LEXAPRO) tablet 10 mg 10 mg, Oral, DAILY, First dose on Thu05/06/22 at 0900, Until Discontinued, Routine, Previous Med: escitalopram oxalate (LEXAPRO) 10 mg tablet - Orig Sig - Take 10 mg by mouth daily. 0853 (Given - Provider: Amber Bran, JUANJO) heparin injection 5,000 Units (COMPLETED) 5,000 Units, subCUT, PRE-PROCEDURE ONCE, 1 dose, Starting on Thu05/05/22 at 0846, Until Thu05/05/22 at 0925, Routine, Pre-op 0925 (Given - Provider: Amber Guzman, JUANJO) heparin injection 5,000 Units 5,000 Units, subCUT, EVERY 8 HOURS, First dose on Thu05/05/22 at 2000, Until Discontinued, Routine, Post-op - Floor 2048 (Given - Provider: Farhat Godinez RN) 0530 (Given - Provider: Farhat Godinez RN)1300 (Not Given - Provider: Amber Bran, JUANJO - Reason: Patient off unit) lactated ringers bolus solution 1,000 mL (COMPLETED) 1,000 mL, IV, PRE-PROCEDURE ONCE, 1 dose, Starting on Thu05/05/22 at 0846, Until Thu05/05/22 at 1309, at 2,000 mL/hr, Administer over 30 Minutes, Routine, Pre-op 1144 (New Bag - Provider: MIKE Sheppard Jr.)1309 (New Bag - Provider: MIKE Sheppard Jr.)1314 (Fluid Volume - Provider: MIKE Sheppard Jr.) naloxone (NARCAN) 0.4 mg/mL injection 0.1 mg 0.1 mg, IV, SEE ADMIN INSTRUCTIONS, Starting on Thu05/05/22 at 1012, Until Thu05/06/22 at 1724, Routine, PACU pantoprazole (PROTONIX) injection 40 mg 40 mg, IV, DAILY, First dose on Thu05/06/22 at 0900, Until Discontinued, Routine, Post-op - Floor, Indication: Gastroesophageal reflux disease (GERD) 0900 (Given - Provider: Amber Bran RN) thiamine (VITAMIN B-1) 100 mg, folic acid 1 mg in dextrose 5% 100 mL IVPB (COMPLETED) IV, at 230 mL/hr, POST-PROCEDURE ONCE, 1 dose, Starting on Thu05/05/22 at 1800, Until Thu05/05/22 at 1830, Routine, Post-op - Floor 1800 (New Bag - Provider: Scarlet Moser RN - Comment: barcode wont scan, checked [facility], correct med)1830 (Stopped - Provider: Scarlet Moser RN) Continuous Medication Order 05/04/2022 05/05/2022 05/06/2022 lactated ringers infusion (CANCELED) IV, at 125 mL/hr, PRE-PROCEDURE CONTINUOUS, Starting on Thu05/05/22 at 0900, Until Thu05/05/22 at 1618, Routine, Pre-op 0922 (New Bag - Provider: Amber Guzman RN) lactated ringers infusion IV, at 125 mL/hr, CONTINUOUS, Starting on Thu05/05/22 at 1630, Until Thu05/06/22 at 1724, Routine, Post-op - Floor 1630 (Rate Verify - Provider: Scarlet Moser RN) 0022 (New Bag - Provider: Farhat Godinez RN) PRN Medication Order 05/04/2022 05/05/2022 05/06/2022 ALPRAZolam (XANAX) tablet 0.25 mg 0.25 mg, Oral, THREE TIMES DAILY PRN, Starting on Thu05/05/22 at 1621, Until Thu05/06/22 at 1724, Anxiety, Routine, Previous Med: ALPRAZolam (XANAX) 0.25 mg tablet - Orig Sig - Take 1 Tablet (0.25 mg) by mouth 3 times daily as needed for Anxiety. bupivacaine-EPINEPHrine (SENSORCAINE-EPINEPHRINE) 0.5 %-1:200,000 injection (CANCELED) INTRA-PROCEDURE PRN, Starting on Thu05/05/22 at 1248, Until Thu05/05/22 at 1318, Routine, Intra-op 1248 (Given - Provider: Jerrell Byrd DO) diphenhydrAMINE (BENADRYL) injection 25 mg 25 mg, IV, EVERY 6 HOURS PRN, Starting on Thu05/05/22 at 1620, Until Thu05/06/22 at 1724, Itching, Routine, Post-op - Floor docusate sodium (COLACE) 50 mg/5 mL oral solution 100 mg 100 mg, Oral, TWO TIMES DAILY PRN, Starting on Thu05/05/22 at 1620, Until Thu05/06/22 at 1724, Constipation, Routine, Post-op - Floor HYDROcodone-acetaminophen (HYCET) 7.5-325 mg/15 mL oral solution 15 mL 15 mL (7.5 mg), Oral, EVERY 4 HOURS PRN, Starting on Thu05/05/22 at 1620, Until Thu05/06/22 at 1724, Pain (See admin instructions), Routine, Post-op - Floor 1039 (Given - Provid er: Amber Bran RN) HYDROcodone-acetaminophen (HYCET) 7.5-325 mg/15 mL oral solution 15 mL 15 mL (7.5 mg), Oral, EVERY 4 HOURS PRN, Starting on Thu05/05/22 at 1620, Until Thu05/06/22 at 1724, Pain (See admin instructions), Routine, Post-op - Floor HYDROmorphone (DILAUDID) 2 mg/mL injection 0.2 mg (CANCELED) 0.2 mg, IV, POST-PROCEDURE Q 5 MINUTES PRN, 5 doses, Starting on Thu05/05/22 at 1012, Until Thu05/05/22 at 1618, Pain, Routine, PACU 1404 (Given - Provider: Cristino Ricks, JUANJO)1413 (Given - Provider: Cristino Ricks, JUANJO) ketorolac (TORADOL) injection 15 mg 15 mg, IV, EVERY 6 HOURS PRN, Starting on Thu05/05/22 at 1620, Until Thu05/06/22 at 1619, Other (See Comment), Cramping or aching pain, Routine, Post-op - Floor 1648 (Given - Provider: Scarlet Moser RN)2313 (Given - Provider: Farhat Godinez RN) 1039 (Given - Provider: Amber Bran RN) metoclopramide (REGLAN) 5 mg/mL injection 10 mg 10 mg, IV, EVERY 6 HOURS PRN, Starting on Thu05/05/22 at 1620, Until Thu05/06/22 at 1724, Nausea/Emesis, Routine, Post-op - Floor morphine 4 mg/mL injection 4 mg 4 mg, IV, EVERY 4 HOURS PRN, Starting on Thu05/05/22 at 1620, Until Thu05/06/22 at 1724, Pain (See admin instructions), Pain, Break-Through, Routine, Post-op - Floor 0017 (Given - Provid er: Farhat Godinez RN) ondansetron (ZOFRAN) 4 mg/2 mL injection 4 mg (COMPLETED) 4 mg, IV, POST-PROCEDURE ONCE PRN, 1 dose, Starting on Thu05/05/22 at 1013, Until Thu05/05/22 at 1337, Nausea/Emesis, Routine, PACU 1337 (Feeding Started - Provider: Cristino Ricks RN) ondansetron (ZOFRAN) 4 mg/2 mL injection 4 mg 4 mg, IV, EVERY 6 HOURS PRN, Starting on Thu05/05/22 at 1620, Until Thu05/06/22 at 1724, Nausea/Emesis, Routine, Post-op - Floor prochlorperazine maleate (COMPAZINE) tablet 10 mg 10 mg, Oral, EVERY 6 HOURS PRN, Starting on Thu05/05/22 at 1620, Until Tu05/06/22 at 1724, Nausea/Emesis, Routine, Post-op - Floor sodium chloride 0.9 % irrigation solution (CANCELED) INTRA-PROCEDURE PRN, Starting on Thu05/05/22 at 1248, Until Thu05/05/22 at 1318, Routine, Intra-op 1248 (Given - Provider: Jerrell Byrd DO) documented in this encounter Care Teams Technical Training Coordinator Relationship Specialty [place] [address] [facility] [address] [place] [phone] PCP - General Internal Medicine 04/08/21 documented as of this encounter
--- OUTSIDE RECORDS SUMMARY | 2024-05-29 17:30 | XMS_ITS | Encounter Summary ---
Author Organization [facility] Address [address] [place]: Epic Prelude [place]T [place] [address] Care Team Providers Care Vocational Rehabilitation Administrator Name Role Phone Jai Guadarrama MD Primary Care Provider +1- [phone] Encounter Details Date Type Department Care Team (Late st Contact Info) Description 06/04/2022 External Device Data Initial Department [address] [place]: [place] [address] [facility] Emergency, Social History Tobacco Use Types Packs/Day [...] Coronavirus/COVID-19? 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
--- OUTSIDE RECORDS SUMMARY | 2024-05-29 17:30 | XMS_ITS | Encounter Summary ---
Author Organization [facility] Address [address] Kaplan: Epic Prelude ADT [place] [address] Care Team Providers Care Director Occupational Name Role Phone Jai Guadarrama MD Primary Care Provider +1- [phone] Encounter Details Date Type Department Care Team (Latest Contact Info) Description 05/08/2022 Travel Social History Tobacco Use Types Packs/Day [...] Coronavirus/COVID-19? 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
--- OUTSIDE RECORDS SUMMARY | 2024-05-29 17:30 | XMS_ITS | Encounter Summary ---
Author Organization [facility] Address [address] [place] [address] Care Team Providers Care Installer Molding And Trim Name Role Phone Jai Guadarrama MD Primary Care Provider +1- [phone] Reason for Visit * Auth/Cert (Routine) Specialty Diagnoses / Procedures Referred By Contomega t Referred To Contact Perioperative Diagnoses RIGHT CARPAL TUNNEL SYNDROME Procedures MD WRIST ARTHROSCOP,RELEASE XVERS LIG MD WRIST ARTHROSCOP,RELEASE XVERS LIG MD REVISE MEDIAN N/CARPAL TUNNEL SURG CARPAL TUNNEL RELEASE ENDOSCOPIC [facility] [address] [place] [address] Referral ID Status Reason Start Date Expiration Date Visits Re quested Visits Authorized [id number] 1 1 Encounter Details Date Type Department Care Team (Latest Contact Info) Description 05/13/2022 5:30 AM SAFETY INTERN - 05/13/2022 9:07 AM [facility] Hospital Encounter [facility] [address] [address] [place] [address] Santana Lake MD [address] [place] [address] Carpal tunnel syndrome of right wrist Discharge Disposition: Home or Self Care Social [...] Coronavirus/COVID-19? No / Unsure 05/08/2022 8:27 AM SAFETY INTERN documented as of this encounter Last Filed Vital Signs Vital Sign Reading Time Taken Comments Blood Pressure 136/83 05/13/2022 8:44 AM SAFETY INTERN Pulse 54 05/13/2022 8:44 AM SAFETY INTERN Temperature 36.1 ??C (97 ??F) 05/13/2022 8:44 AM SAFETY INTERN Respiratory Rate 16 05/13/2022 8:44 AM SAFETY INTERN Oxygen Saturation 96% 05/13/2022 8:44 AM SAFETY INTERN Inhaled Oxygen Concentration - - Weight 106.5 kg (234 lb 12.8 oz) 05/13/2022 6:42 AM SAFETY INTERN Height 162.6 cm (5' 4 ) 05/13/2022 6:42 AM SAFETY INTERN Body Mass Index 40.3 05/13/2022 6:42 AM SAFETY INTERN documented in this encounter Discharge Instructions * Discharge Instructions* Margarita Pastor RN - 05/13/2022 8:41 AM SAFETY INTERN [facility] Plastic surgery discharge instructions. F/u in my [...] questions. If you are not active on [employer], please sign up by visiting [employer] Then send me a message saying lorraine, and that you have now signed up for my [facility]. Santana Lake MD [facility] Plastic and Hand Surgery 1st choice M-F 8am-4pm: office, wash tub machine operator (nights and weekends) SAFETY For the [...] or come to the Emergency Room at [facility] ([phone]) or the nearest Emergency Room. In an emergency, Call 911. TY INTERN documented in this encounter Medications at Time of Discharge Medication Sig Dispensed Refills Start Date End Date naloxone (NARCAN) 4 mg/spray [place], Non-Aerosol EMERGENCY USE ONLY: Administer 1 spray [...] health benefits of quitting, and current and [facility] risks if continued smoking She is not [...] has not been seen by a surgical supply assistant for this complaint in the past. OBJECTIVE: [...] Santana Lake M.D. Hand and Plastic Surgeon [facility] Plastic Surgery TY INTERN documented in this encounter OR Notes * Darlyn-OP - Claudia Joshua RN - 05/13/2022 9:06 AM CST Took IV out of L hand, catheter intact, direct pressure applied. TY INTERN * Operative Report - Santana Lake MD - 05/13/2022 8:42 AM SAFETY INTERN DATE OF SERVICE: 05/13/2022 NAME: Renata Lei : 1980 CSN: [id number] SURGEON Santana Lake MD. PREOPERATIVE DIAGNOSIS Right [...] fascia was identified and grasped using a pecan picker. The antebrachial fascia was then spread along [...] less than 30 minutes. Santana Lake MD TY INTERN * Darlyn-OP - Julisa Carrillo RN - 05/08/2022 8:37 AM CST Surgical orders unavailable at the time of patient's [facility] phone interview. TY INTERN * Darlyn-OP - Julisa Carrillo RN - 05/08/2022 8:31 AM CST Patient states she has not had any chances in her medical history or medications since her DOS . States she has the pre procedural instructions and has no further questions. Medications reviewed. ADVANCED PLANNING FOR MEDICATION USE * Unless otherwise ordered by a member of the [facility] Anesthesiology Staff. 1. STOP a. Seven (7) DAYS PRIOR TO SURGERY OR WHEN NOTIFIED IF < SEVEN DAYS: The use of all vitamins, herbal supplements, and other alternative substances. b. Seven (7) DAYS PRIOR TO SURGERY: The use of any UNPRESCRIBED Aspirin, Excedrin and NSAIDs which include Motrin, Ibuprofen, Aleve, and Naprosyn. CURRENT MEDICATION LIST Pre-Surgery Instructions Medication Instructions naloxone (NARCAN) 4 mg/spray [place], Non-Aerosol May use if needed the morning [...] morning of surgery with sip of water TY INTERN * Darlyn-OP - Sandy Logan RN - 04/30/2022 1:11 [...] call me back after speaking with patient. TY INTERN documented in this encounter Miscellaneous Notes * [...] surgery and perioperative experience Outcome Met: understands darlyn-op Potential for anxiety related to surgical intervention Interventions: convey caring/supportive attitude; offer emotional support as needed; provide comfort measures (warm blanket, pillow, quiet environment); allow patient opportunity to verbalize concerns/fears/questions; explore coping behaviors; allow age-specific/special needs family support Expected Outcome: Patient will demonstrate decreased anxiety or adaptive coping strategies Outcome Met: patient calm and informed TY INTERN * Care Plan - Julisa Palma RN [...] perioperative experience Outcome Met: All concerns addressed TY INTERN documented in this encounter Plan of Treatment Not on file documented as of this encounter Procedures Procedure Name Priority Date/Time Associated Diagnosis Comments MD NDSC WRST SURG W/RLS TRANSVRS CARPL LIGM 05/13/2022 7:20 AM SAFETY INTERN RIGHT CARPAL TUNNEL SYNDROME Case Notes VITA SWANSON PP POC , URINE Routine 05/13/2022 6:25 AM SAFETY INTERN documented in this encounter Results * POC , URINE (05/13/2022 6:25 AM SAFETY INTERN) HCG QUAL URINE Negative Negative 05/13/2022 6:25 AM SAFETY INTERN [facility] [employer] [facility] Urine 05/13/2022 6:25 AM SAFETY INTERN 05/13/2022 1:04 PM SAFETY INTERN Santana Lake MD POINT OF CARE T [facility]# [id number] [address] [place] [address] documented in this encounter Visit Diagnoses Diagnosis Carpal tunnel syndrome of right wrist Carpal tunnel syndrome documented in this encounter Administered Medications Inactive Administered Medications - up to 3 most recent administrations Medication Order MAR Action Action Date Dose Rate Site acetaminophen (TYLENOL) 325 mg/10.15 mL oral solution 650 mg 650 mg, Oral, EVERY 4 HOURS PRN, Starting on Thu05/13/22 at 0844, Until Thu05/13/22 at 1112, Pain, Moderate, Routine lactated ringers infusion IV, at 150 mL/hr, PRE-PROCEDURE CONTINUOUS, Starting on Thu05/13/22 at 0600, Until Thu05/13/22 at 1112, Routine Continue from Pre-Op 05/13/2022 7:39 AM SAFETY INTERN New Bag 05/13/2022 7:10 AM SAFETY INTERN documented in this encounter Active and Recently Administered Medications Times are shown in SAFETY INTERN. Scheduled Medication Order 05/11/2022 05/12/2022 05/13/2022 ceFAZolin [...] MD) documented in this encounter Care Teams Installer Molding And Trim Relationship Specialty [place] [address] [facility] [address] [place] [phone] PCP - General Internal Medicine 04/08/21 documented as of this encounter
--- OUTSIDE RECORDS SUMMARY | 2024-05-29 17:30 | XMS_ITS | Encounter Summary ---
Author Organization [facility] Address 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 documented as of this encounter Last Filed Vital Signs Vital Sign Reading Time Taken Comments Blood Pressure 109/75 05/22/2022 2:13 PM REMOTE CONTROL ASSEMBLER Pulse - - Temperature - - Respiratory Rate - - Oxygen Saturation - - Inhaled Oxygen Concentration - - Weight 104.6 kg (230 lb 9.6 oz) 05/22/2022 2:13 PM REMOTE CONTROL ASSEMBLER Height 162.6 cm (5' 4 ) 05/22/2022 2:13 PM REMOTE CONTROL ASSEMBLER Body Mass Index 39.58 05/22/2022 2:13 PM REMOTE CONTROL ASSEMBLER documented in this encounter Progress Notes * Jerrell Byrd, DO - 05/22/2022 1:15 PM CST Images from the original note were not included. Patient: Renata Lei : 1980 [facility] [address] [place] [address], [address] [place] [address] INITIAL POST-OPERATIVE VISIT Time Since Surgery: 2 WEEKS Surgical Procedure: Laparoscopic Sleeve Gastrectomy with repair of hiatal hernia Date of Surgery: 05/05/2022 Pre-surgical Weight: 266 Previous Bariatric Procedures: None INTERVAL HISTORY: Patient is a(n) 42 y.o. female presenting for her initial postoperative follow-upsince bariatric surgery. ISSUES SINCE DISCHARGE: None - also had right carpal tunnel surgery since bariatric surgery; recovering well from both Last documented weight: Weight: 104.6 kg (230 lb 9.6 oz) (05/22/22 1413) [place] body weight: 54.7 kg (120 lb 9.5 oz) Adjusted ideal body weight: 74.7 kg (164 lb 9.5 oz) Excess weight: 146 % of EBW lost: 24.7% Current Diet: Full Liquid diet (Bariatric Phase II) + Protein shakes Daily fluid/water intake = 40-60 oz Physical Activity: Minimal except for activities of daily life and normal activities around the home. ROS (also, see interval Hx) Fever/chills: No Elevated HR: No Bloating/hiccups: No SOB/cough/wheezing: No Lower extremity pain or swelling: No Decreased UOP: No Bowel function: Normal BMs without complaint Comorbidity Evaluation RYAN: No GERD: Yes - still taking postoperative 3-month course of omeprazole (Prilosec). Hypertension: No - n/a Hyperlipidemia: Yes Diabetes: No VTE: No Is patient attending any support groups? Encouraged attendance PHYSICAL EXAM BP 109/75 Ht 5' 4 (1.626 m) Wt 104.6 kg (230 lb 9.6 oz) BMI 39.58 kg/m?? General: Obese female in no apparent distress; well-developed and well-nourished. Heart: normal rate, regular rhythm, normal S1, S2, no murmurs, rubs, clicks or gallops Lungs: clear to auscultation, no wheezes, rales or rhonchi, symmetric air entry Abdomen: Soft, non-tender. Bowel sounds normal. No masses, no organomegaly.; Incisions: clean and dry Extremities: Warm & well perfused, atraumatic, no erythema or tenderness in the calves nor thighs IMPRESSION/PLAN: S/p lap sleeve gastrectomy, Body mass index is 39.58 kg/m??. - Diet: Tolerating Full Liquid diet (Bariatric Phase II) + Protein shakes without difficulty. Advance to Pureed diet (Bariatric Phase III) diet after 2 weeks. - Activity: Patient now permitted to start cardio exercises such as running, elliptical, etc. Okay to start exercise program with weight-training once 4 weeks out from surgery. Okay to return to workif not already returned. - Education: Continue to follow-up with bariatric alliance director/dietitian. Continue previous medications as prescribed. Continue to crush meds for the first 4 weeks post-op; after, may resume regular formulations. Continue to open up omeprazole capsule for first 3 months. Patient advised to see PCP about medication changes. Instructions given today to start their vitamins. She understands the post-op vitamin requirements:MVI, calcium (1500mg daily), and supplements for any low vitamin levels PRN as determined by labwork. Daily MVI/calcium should include Vit D 5,000IU & Vit B1 100mg. Patient counseled on behaviors necessary for weight loss: Discussed in detail the post-op diet progression, appropriate eating habits, fluid requirements, and food choices - advancing diet every 2 weeks until reaching stage 4. Discussed physical activity expectations: Goal of 10,000 steps/day and 150 active min/wk. First 9 months after surgery is the best time to make headway on weight loss. Encouraged to attend support groups. Advised patient to see a counselor and/or PCP if mental healthconcerns arise. Get labs drawn as ordered. Get radiology as ordered. - Disposition: Return in approximately 6 weeks for 2-month post-op follow-up visit. Patient has been instructed to have labs drawn prior to 2-month return visit: CBC w/ diff, CMP, VitB12, Iron/TIBC, Folate, D 25-Hydroxy, HbA1C, Thiamine, Zinc. Orders placed. The patient is encouraged to call the clinic with any questions or concerns in the meantime. The patient demonstrates understanding and is amenable to the above outlined plan. There are no barriers to education today. MEET Waite DO 05/22/2022 TE CONTROL ASSEMBLER documented in this encounter Plan of Treatment Not on file documented as of this encounter Visit Diagnoses Diagnosis S/P laparoscopic sleeve gastrectomy- Primary Obesity (BMI 30-39.9) Obesity, unspecified Hypercholesterolemia Pure hypercholesterolemia Frequent headaches Chronic joint pain Pain in joint, site unspecified Anxiety Anxiety state, unspecified documented in this encounter Care Teams Stick Welder Relationship Specialty [place] [address] [facility] [address] [place] [phone] PCP - General Internal Medicine 04/08/21 documented as of this encounter
--- OUTSIDE RECORDS SUMMARY | 2024-05-29 17:30 | XMS_ITS | Encounter Summary ---
Author Organization [facility] Address [address] Kaplan: Epic Prelude [place]T [place] [address] Care Team Providers Care Dental Manager Name Role Phone Jai Guadarrama MD Primary Care Provider +1- [phone] Encounter Details Date Type Department Care Team (Late st Contact Info) Description 05/13/2023 External Device Data Initial Department [address] [place]: [place] [address] [facility] Md Debbi Social History Tobacco Use Types Packs/Day Years [...] on filedocumented in this encounter Care Teams Dental Manager Relationship Specialty [place] [address] [place] [phone] PCP - General Internal Medicine 04/08/21 documented as of this encounter
--- OUTSIDE RECORDS SUMMARY | 2024-05-29 17:30 | XMS_ITS | Encounter Summary ---
Author Organization [facility] Address [address] [place] [address] Care Team Providers Care Wireless Sales Consultant Name Role Phone Jai Guadarrama MD Primary Care Provider [phone]- [phone] Encounter Details Date Type Department Care Team (Late st Contact Info) Description 06/06/2022 Orders Only [facility] Internal Medicine Angelica Tony [address] [facility] [address] [place] [address] [place] [address] [place] [address] Social History Tobacco Use Types Packs/Day Years [...] Coronavirus/COVID-19? No / Unsure 05/22/2022 9:35 AM MANAGER HOUSEKEEPING documented as of this encounter Progress Notes * Jai Guadarrama MD - 06/06/2022 8:04 AM CST Received message / called patient back. Flank pain x 1.5 weeks - worsening to the point where she had to take leftover hydrocodone. Nurse pool returned call. UA ordered. UA = 2+ LE / 20-40 WBC / few bacteria Rx for Cipro 500 mg BID x 10 days for suspected pyelonephritis sent to pharmacy Advised to proceed to ED if flank pain worsens GER HOUSEKEEPING documented in this encounter Plan of Treatment Not on file documented as of this encounter Visit Diagnoses Not on filedocumented in this encounter Care Teams Wireless Sales Consultant Relationship Specialty Start [place] [address] [facility] [address] [place] [phone] PCP - General Internal Medicine 04/08/21 documented as of this encounter
--- OUTSIDE RECORDS SUMMARY | 2024-05-29 17:30 | XMS_ITS | Encounter Summary ---
Author Organization [facility] Address [address] [place] [address] Care Team Providers Care A R Specialist Name Role Phone Jai Guadarrama MD Primary Care Provider [phone]- [phone] Reason for Visit * Reason Onset [facility]22 Encounter Details Date Type Department Care Team (Late st Contact Info) Description 06/04/2022 Telephone [facility] [address] [place] [address] Carole Turner, [facility] [address] [place] [address] [facility] Social History Tobacco Use Types Packs/Day Years [...] Coronavirus/COVID-19? No / Unsure 05/22/2022 9:35 AM BUS TRANSPORTATION MANAGER documented as of this encounter Miscellaneous Notes * Telephone Encounter - Carole Bernal FNP - 06/04/2022 4:07 PM BUS TRANSPORTATION MANAGER vAcute Interaction Note: Called patient regarding [employer] survey response. Patient enrolled in Post Discharge program. Patient reported feeling worse. Patient states issue was taken care of by PCP office. Advised to call for any other questions or calls. MICHAEL Knight vAcute Visit was completed by: Phone TRANSPORTATION MANAGER documented in this encounter Plan of Treatment Not on file documented as of this encounter Visit Diagnoses Not on filedocumented in this encounter Care Teams A R Specialist Relationship Specialty Start [place] [address] [facility] [address] [place] [phone] PCP - General Internal Medicine 04/08/21 documented as of this encounter
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
--- OUTSIDE RECORDS SUMMARY | 2024-05-29 17:30 | XMS_ITS | Encounter Summary ---
Author Organization [facility] Address [address] [place] [address] Care Team Providers Care Preparing Box Tender Name Role Phone Jai Guadarrama MD Primary Care Provider [phone]- [phone] Reason for Visit * Auth/Cert (Routine) Specialty Diagnoses / Procedures Referred By Rigoberto t Referred To Contact Perioperative Diagnoses RIGHT CARPAL TUNNEL SYNDROME Procedures ME WRIST ARTHROSCOP,RELEASE XVERS LIG ME WRIST ARTHROSCOP,RELEASE XVERS LIG ME REVISE MEDIAN N/CARPAL TUNNEL SURG CARPAL TUNNEL RELEASE ENDOSCOPIC [facility] Main Or [address] [place] [address] Referral ID Status Reason Start Date Expiration Date Visits Re quested Visits Authorized [id number] 1 1 Encounter Details Date Type Department Care Team (Late st Contact Info) Description 05/13/2022 8:13 AM COUNSELING SPECIALIST Anesthesia Event [facility] Operating Room [address] [place] [address] Ramón Shanks MD [address] [place] [address] Anesthesia Record Procedure Summary Procedure Name Responsible Anesthesiologist Anesthesia Start Time Anesthesia Stop Time NERVE BLOCK Events Date Time Event Comment 05/13/2022 0725 Block Sedation Start 0725 Pull Vitals 0735 Block Sedation Stop Meds Name Total midazolam (VERSED) 1 mg/mL injection 2 m g bupivacaine-EPINEPHrine (SEN SORCAINE MPF WITH EPI) 0.25% - 1:200,000 PF injection 12.5 mL mepivacaine PF (CARBOCAINE,POLOCAINE) in jection 15 mg/mL (1.5%) 12.5 mL * Agents No agents on file. * Blood No blood administrations on file. Lines, Drains, and Airways No LDAs on file. documented in this encounter Social History Tobacco [...] Coronavirus/COVID-19? No / Unsure 05/08/2022 8:27 AM COUNSELING SPECIALIST documented as of this encounter OR Notes * Anesthesia Procedure Notes - Ramón Shanks MD - 05/13/2022 8:13 AM COUNSELING SPECIALIST Associated Order(s): Peripheral Block Supraclavicular Block Patient location during procedure: Pre-op Start time: 05/13/2022 7:25 AM End time: 05/13/2022 7:35 AM Reason for block: at surgeon's request, post-op pain management and primary anesthetic Staffing Performed By: Anesthesiologist: Ramón Shanks MD Shank Carrier: Roverto Britton PA-C Preanesthetic Checklist Completed: patient identified, IV checked, site marked, risks and benefits discussed, surgical consent, monitors and equipment checked, pre-op evaluation and timeout performed Hand hygiene performed prior to procedure Patient was prepped and draped in usual sterile fashion Mask worn Patient position: Supine Prep: ChloraPrep Patient monitoring: Continuous pulse oximetry, Heart rate and Non-invasive blood pressure Block Region: Upper Extremity Block Laterality: Right Injection technique: Single-shot [place] Identification: ultrasound guided Local infiltration anesthetic: Lidocaine 2% 1 mL. Local injected: Bupivacaine 0.25% and Mepivacaine 1.5% (50:50 mixture) Total Volume Injected (mL): 25 Needle Needle type: Short-bevel Needle gauge: 22 G Needle length: 8 cm. Needle localization: Ultrasound guidance Nerve Stimulator or Paresthesia Response Motor response or paresthesia obtained mA ms Depth (cm) Sedation Given: Midazolam (mg): 2 Patient Response: Awake and Responsive to verbal stimuli Assessment Paresthesia pain: None Heart rate change: no Slow fractionated injection: yes Narrative Injections made incrementally with aspirations every (mL): 5 Events: easy and well tolerated and no block events Outcome: Complete Additional Notes I have discussed with the patient, and/or surrogate, the placement of a supraclavicular nerve blockfor postoperative pain management. We have discussed the risks, benefits, complications and side effects. We have also discussed alternative methods of postoperative analgesia. The patient, and/or surrogate, understands and wishes to proceed with the procedure. Heart rate and Sp02 monitored during and immediately following procedure and stable throughout. SELING SPECIALIST documented in this encounter Plan of Treatment Not on file documented as of this encounter Procedures Procedure Name Priority Date/Time Associated Diagnosis Comments ME ANESTHESIA BLOCK PB PLACEHOLDER CHARGE Routine 05/13/2022 8:13 AM COUNSELING SPECIALIST documented in this encounter Results * ME ANESTHESIA BLOCK PB PLACEHOLDER CHARGE (05/13/2022 8:13 AM COUNSELING SPECIALIST) Narrative Ramón Shanks MD - 05/13/2022 8:13 AM COUNSELING SPECIALIST Ramón Shanks MD ? 05/13/2022 ??8:14 AM Supraclavicular Block Patient location during procedure: Pre-op Start time: 05/13/2022 7:25 AM End time: 05/13/2022 7:35 AM Reason for block: at surgeon's request, post-op pain management and primary anesthetic Staffing Performed By: Anesthesiologist: Ramón Shanks MD Shank Carrier: Roverto Britton PA-C Preanesthetic Checklist Completed: patient identified, IV checked, site marked, risks and benefits discussed, surgical consent, monitors and equipment checked, pre-op evaluation and timeout performed Hand hygiene performed prior to procedure Patient was prepped and draped in usual sterile fashion Mask worn Patient position: Supine Prep: ChloraPrep Patient monitoring: Continuous pulse oximetry, Heart rate and Non-invasive blood pressure Block Region: Upper Extremity Block Laterality: Right Injection technique: Single-shot [place] Identification: ultrasound guided Local infiltration anesthetic: Lidocaine 2% 1 mL. Local injected: Bupivacaine 0.25% and Mepivacaine 1.5% (50:50 mixture) Total Volume Injected (mL): 25 Needle Needle type: Short-bevel Needle gauge: 22 G Needle length: 8 cm. Needle localization: Ultrasound guidance ?? Nerve Stimulator or Paresthesia Response Motor response or paresthesia obtained mA ms Depth (cm) ? Sedation Given: Midazolam (mg): 2 Patient Response: Awake and Responsive to verbal stimuli Assessment Paresthesia pain: None Heart rate change: no Slow fractionated injection: yes Narrative Injections made incrementally with aspirations every (mL): 5 Events: easy and well tolerated and no block events Outcome: Complete Additional Notes I have discussed with the patient, and/or surrogate, the placement of a supraclavicular nerve block for postoperative pain management. ??We have discussed the risks, benefits, complications and side effects. ??We have also discussed alternative methods of postoperative analgesia. ??The patient, and/or surrogate, understands and wishes to proceed with the procedure. Heart rate and Sp02 monitored during and immediately following procedure and stable throughout. Ramón Shanks MD PROCEDURE/MINOR SURG ICAL ORDERABLES documented in this encounter Visit Diagnoses Not on filedocumented in this encounter Administered Medications Inactive Administered Medications - up to 3 most recent administrations Medication Order MAR Action Action Date Dose Rate Site bupivacaine-EPINEPHrine (PF) (SENSORCAINE MPF WITH EPI) 0.25 %-1:200,000 injection Infiltration, INTRA-PROCEDURE PRN, Starting on Thu05/13/22 at 0734, Until Bettie 05/15/22 at 2333, Routine, Anesthesia Intra-op Given 05/13/2022 7:34 AM COUNSELING SPECIALIST 12.5 mL mepivacaine PF (CARBOCAINE,POLOCAINE) 15 mg/mL (1.5%) injection Infiltration, INTRA-PROCEDURE PRN, Starting on Thu05/13/22 at 0734, Until Bettie 05/15/22 at 2333, Routine, Anesthesia Intra-op Given 05/13/2022 7:34 AM COUNSELING SPECIALIST 12.5 mL midazolam (VERSED) injection IV, INTRA-PROCEDURE PRN, Starting on Thu05/13/22 at 0725, Until Bettie 05/15/22 at 2333, Routine, Anesthesia Intra-op Given 05/13/2022 7:25 AM COUNSELING SPECIALIST 2 mg documented in this encounter Care Teams Preparing Box Tender Relationship Specialty [place] [id number] [facility] [address] [place] [phone] PCP - General Internal Medicine 04/08/21 documented as of this encounter
--- OUTSIDE RECORDS SUMMARY | 2024-05-29 17:30 | XMS_ITS | Encounter Summary ---
Author Organization [facility] Address [address] [place]: Epic Prelude ADT [place] [address] Care Team Providers Care Wool Hat Finisher Name Role Phone Jai Guadarrama MD Primary Care Provider [phone]- [phone] Encounter Details Date Type Department Care Team (Latest Contact Info) Description 07/24/2022 Travel Social History Tobacco Use Types Packs/Day [...] suspected to have Coronavirus/COVID-19? No / Unsure 07/24/2022 2:37 PM SAMPLER TESTER documented as of this encounter Plan of Treatment Not on file documented as of this encounter Visit Diagnoses Not on filedocumented in this encounter Care Teams Wool Hat Finisher Relationship Specialty [place] [address] [place] [address] PCP - General Internal Medicine 04/08/21 documented as of this encounter
--- OUTSIDE RECORDS SUMMARY | 2024-05-29 17:30 | XMS_ITS | Encounter Summary ---
Author Organization [facility] Address [address] [place] [address] Care Team Providers Care Acid Bath Mixer Name Role Phone Jai Guadarrama MD Primary Care Provider [phone]- [phone] Reason for Visit * Auth/Cert Specialty Diagnoses / Procedures Referred By Contac t Referred To Contact Diagnoses Morbid obesity Morbid obesity [E66.01] Procedures NE LAP, THELMA RESTRICT PROC, LONGITUDINAL GASTRECTOMY NE LAP, THELMA RESTRICT PROC, LONGITUDINAL GASTRECTOMY Jerrell Byrd DO [address] [facility] [address] [place] [address] Referral ID Status Reason Start Date Expiration Date Visits Re quested Visits Authorized [id number] 03/21/2022 1 1 Encounter Details Date Type Department Care Team (Late st Contact Info) Description 05/05/2022 9:49 AM SOUBRETTE - 05/05/2022 11:38 AM [facility]TTE Surgery [facility] Operating Room [address] [place] [address] Jerrell Byrd DO [address] [facility] [address] [place] [address] GASTRECTOMY LONGITUDINAL LAPAROSCOPIC, Surgery Details Date/Time Status Location OR Service Patient Class Case Class Case Type Trauma Case? 05/05/2022 9:49 AM Posted [facility] OR MAIN OR 04 General Surgery Surgical OP/Extended Care Elective No Panel 1 Procedure LRB Anes Op Region Wound Class Comments GASTRECTOMY LONGITUDINAL LAPAROSCOPIC, N/A General Abdomen Clean Contaminated-II HERNIA PARAESOPHAGEAL REPAIR WITH EXCISION OF ESOPHAGEAL LIPOMALAPAROSCOPIC N/A General Abdomen Clean Contaminated-II Surgeon Surgeon Role Service Panel Jerrell Byrd DO Primary General Surgery 1 Case Notes VITA BCBS PP documented in this encounter Social History [...] Coronavirus/COVID-19? No / Unsure 04/22/2022 8:50 AM SOUBRETTE documented as of this encounter Last Filed Vital Signs Vital Sign Reading Time Taken Comments Blood Pressure 124/82 05/05/2022 8:29 AM SOUBRETTE Pulse 73 05/05/2022 8:29 AM SOUBRETTE Temperature 36.1 ??C (96.9 ??F) 05/05/2022 8:29 AM CS T Respiratory Rate 18 05/05/2022 8:29 AM SOUBRETTE Oxygen Saturation 98% 05/05/2022 8:29 AM SOUBRETTE Inhaled Oxygen Concentration - - Weight 110.5 kg (243 lb 9.6 oz) 05/05/2022 8:29 AM SOUBRETTE Height 162.6 cm (5' 4 ) 05/05/2022 8:29 AM SOUBRETTE Body Mass Index 41.81 05/05/2022 8:29 AM SOUBRETTE documented in this encounter Discharge Summaries * Jerrell Byrd DO - 05/06/2022 10:06 AM CST Images from the original note were not included. Patient: Renata Lei : 1980 [facility] [address] [place] [address] [address], [address] [place] [address] DISCHARGE SUMMARY Admission date: 05/05/2022 Discharge date: [...] 200 mL Refills: 0 naloxone 4 mg/spray [place], Non-Aerosol Commonly known as: NARCAN EMERGENCY USE [...] Your Medications These medications were sent to [place] [address] Hours: Retail 8 AM - 12 AM Daily / ED Service 10 AM - 12 AM Daily docusate sodium 100 mg capsule HYDROcodone-acetaminophen 7.5-325 mg/15 mL Solution omeprazole 40 mg Capsule, Delayed Release(E.C.) ondansetron 4 mg Tablet, Rapid Dissolve Information about where to get these medications is not yet available Ask your nurse or doctor about these medications naloxone 4 mg/spray [place], Non-Aerosol ACTIVITY: No strenuous activity, such as [...] discharge instructions and/or during discharge discussion with surgical orderly. FOLLOW-UP: Dr. Byrd or Abelardo Barrios PA-C in approximately 2 weeks. Call [phone] to schedule day and time of the appointment, if not already scheduled. Please do not hesitate to call our office with any questions. See patient D/C instructions. Elias Byrd DO 05/06/2022, 10:06 AM Clinic Bariatric Exchange (After hours & weekends): [phone] RETTE documented in this encounter Discharge Instructions * Discharge Instructions* Jerrell Byrd DO - 05/05/2022 11:28 AM S[facility]E DISCHARGE INSTRUCTIONS PROCEDURE: Laparoscopic Sleeve Gastrectomy Activity [...] you a headache: Call our office at [phone]. If you don't get a response or it's outside normal business hours, call the Bariatric Exchange Line: [phone]* Incision/Wound care: Clean incisions by allowing soapy [...] Your Medications [address] [facility] [address] Hours: Retail 8 AM - 12 AM [...] pureed fruits, vegetables, and/or meats (use a automotive internet sales consultant for this). Food NOT Allowed: Any liquids [...] POSTOPERATIVE QUESTIONS OR CONCERNS? --> Call our Acid Dumper, Tawnya ( ) After regular business hours? Please call the Bariatric Exchange Line -- Phone #: [phone] RETTE documented in this encounter Medications at Time of Discharge Medication Sig Dispensed Refills Start Date End Date naloxone (NARCAN) 4 mg/spray [place], Non-Aerosol EMERGENCY USE ONLY: Administer 1 spray [...] of this encounter Progress Notes * Amber Bran, RN - 05/06/2022 10:50 AM CST Renata Lei will be discharged via wheelchair to home. Renata Lei is accompanied by family member(s) and will be transported via private vehicle. IV removed. Medications received from [facility] pharmacy. Incentive spirometer, pill airport guide and personal belongings sent home with patient. RETTE documented in this encounter H&P Notes * Jerrell Byrd DO - 05/05/2022 11:11 AM CST Images from the original note were not included. Patient: Renata Lei : 1980 CSN: [id number] [facility] [address] [place] [address] B, [address] [place] [address] HISTORY & PHYSICAL 05/05/2022 HISTORY OF PRESENT [...] KNEE REPLACEMENT Left 1998 HX LAP CHOLECYSTECTOMY 2006 NE ESOPHAGOGASTRODUODENOSCOPY TRANSORAL DIAGNOSTIC N/A 10/11/2021 ESOPHAGOGASTRODUODENOSCOPY performed by Jerrell Byrd DO at [facility] GI LAB Medications Prior to Admission [...] Harman Lei Lung Cancer Paternal Grandmother Rosi Pb Diabetes Paternal Grandmother Rosi Pb REVIEW OF SYSTEMS: Constitutional: No weight loss, [...] answered. Elias Byrd DO 05/05/2022, 11:12 AM RETTE documented in this encounter OR Notes * Operative Report - Jerrell Byrd DO - 05/05/2022 1:25 PM CST [address] [address] Operative Report DATE OF SERVICE: 05/05/2022 PATIENT'S NAME: Renata Lei : 1980 CSN: [id number] PRE OP DIAGNOSES: Morbid obesity with comorbidities [...] of esophageal lipoma SURGEON: Jerrell Byrd DO PIPE CONNECTOR: Abelardo Barrios PA-C Surgical Staff: Sewage Treatment Plant Operator: Joseph Davis RN; Enedelia Espinosa RN; Shruthi Broderick RN; Luli Gamez RN Scrub: Joseph Davis RN; Megha Bowman ST First Assistant: Fortino Roberts, SOUBRETTE; Garland Elias RN Surgeon's Safety Sitter: Abelardo Barrios PA ANESTHESIA: GETA ESTIMATED BLOOD [...] been discussed with this patient and/or legal product sales representative. The patient and/or legal product sales representative acknowledge(s) understanding of the above and [...] dressing application. The use of a physician psychiatric technician assistant was required due to the complexity [...] a 5 mm epigastric and left flank psychiatric technician assistant port were placed under direct laparoscopic [...] be hemostatic. Next the bougie tube- 36 Thai, was advanced to the antrum under direct [...] condition. Elias Byrd DO 05/05/2022 1:26 PM [facility] RETTE * Darlyn-OP - Enedelia Espinosa RN - 05/05/2022 12:13 PM CST Sterile warm nacl used as irrigation. Patient's temperature and forced air warming equipment monitored/regulated by anesthesia. Anesthesia equipment, medications and supplies maintained, cleaned, inspected, checked and restocked by designated anesthesia staff and [facility] anesthesia technicians. Compression sleeves applied and powered on prior to anesthesia induction. Prep solution allowed to dry for a minimal of 3 minutes prior to incision. RETTE documented in this encounter Miscellaneous Notes * [...] continue to follow for discharge planning. Monae Montoya RN, BSN Tube Rebuilder [id number] Day 1 - Current ([employer]: Adult and Obstetrics) Patient, family, or healthcare designee is participating in individual care plan process Outcome: Met Problem: Discharge Planning Goal: Identify discharge needs upon admission and through discharge Description: Outcome: Progressing RETTE * Treatment Plan - Yulia Marin RCP - 05/06/2022 8:17 AM CST RT Assess & Treat Note Plan: Pt has no pulmonary hx. Patient does not require therapy at this time. Please reorder Assess and Treat if condition changes. For further information please call the assigned RT. RETTE * Treatment Plan - Yulia Marin RCP - 05/06/2022 8:16 AM CST Images from the original note were not included. Respiratory Therapy Assess and Treat Protocol- [facility] Approved by: [facility] - Medical Executive Committee Approval Date: 01/30/2022 ORDERS ARE ENTERED ???PER PROTOCOL?? Enter the protocol in the patient???s electronic health record using [employer]: .rtassessandtreatprotocol Respiratory Therapy orders: Requires a written order for Assess and Treat Protocol (RT41) or IP Consult to Respiratory Therapy (CON21) by the physician or the physician oilfield plant and field operator. Oxygen desaturation studies (walk studies) must be [...] q6 PRN 2puffs Albuterol 2.5mg Albuterol Class 3/-18 *Reassess in 24 hrs * Reassess in 96 hrs after initial assessment. *If patient condition worsens then reassess q4 and q4 PRN 2 puffs Albuterol 2.5 Mg Albuterol Class /-24 *Reassess in 24 hrs * Reassess in [...] (CON21) by the physician or the physician oilfield plant and field operator. 2. Only licensed Respiratory Therapists will be [...] home regimen medications as listed in their HOUSEKEEPING ASSISTANT medication list as appropriate. Patients in [facility] [...] not indicated for patients transitioning to a assisted facility, rehabilitation facility, or who have not required oxygen since admission unless otherwise specified by the physician. ASSESS AND TREAT PROTOCOL-ADULT BRONCHODILATION PROCEDURE Indications: Bronchospasm/wheezing (Reactive Airway Disease, Asthma, Emphysema, Chronic Bronchitis, Bronchiolitis) Current Home Bronchodilator usage including short-acting, long-acting, inhaled corticosteroid, anticholinergic, and combination respiratory medications. Other indications stated in the [place] [employer]???s Clinical Practice Guidelines, [...] PRN 2 puffs Albuterol 2.5mg Albuterol Class 06/26- *Reassess in 24 hrs * Reassess in [...] the patient is being managed by their Locker Room Manager. Determine Mode of Delivery using chart below. [...] MDI 4)Considerations Review patient???s Prior to Admission (HOUSEKEEPING ASSISTANT) medication list. The Respiratory Therapist will consider ordering any of the following meds based on the patient???s home regimen: Short and long-acting bronchodilators, inhaled corticosteroids, anticholinergics, and combination respiratory medications. Use of the preferred [facility] formulary equivalent should be ordered per Assess and Treat Protocol for use throughout the patients hospital stay. Patients diagnosed with a chronic lung disease, such as COPD or Asthma, will be evaluated for the benefit of a controller medication therapy (long-acting bronchodilators, inhaled corticosteroids, anticholinergics, and combination respiratory medications) if not already on the HOUSEKEEPING ASSISTANT medication list. The Respiratory Therapist will contact the attending physician if a controller therapy may benefit the patient. Xopenex (Levalbuterol) Orders will be followed as below: See Pharmacy Policy, Section: APPROVED THERAPEUTIC INTERCHANGES FOR [facility] Title: Beta Agonists Patients taking home regimen [...] pathology. Untreated pneumothorax, flail chest, pulmonary barotraumas. RETTE * Care Plan - Farhat Godinez RN [...] follow-up. Outcome: Met Day 1 - Current ([employer]: Adult and Obstetrics) Patient, family, or [...] techniques or patient moves independently. Outcome: Met RETTE * Care Plan - Scarlet Moser RN [...] shift. Patient is stable and resting comfortably. RETTE * Care Plan - Cristino Ricks RN - 05/05/2022 1:24 PM CST Potential for pain related to surgical/procedural intervention Interventions: Assess level of pain/comfort utilizing verbal/nonverbal pain scales; assess culturalor tenriism indicators attached to pain; administer pain medications [...] no bleeding or hematoma from surgical site RETTE * Care Plan - Amber Guzman RN [...] experience Outcome Met: patient understands darlyn-op process RETTE documented in this encounter Plan of Treatment Scheduled Orders Name Type Priority Associated Diagnoses Orde r Schedule RT ASSESS AND TREAT Respiratory Care Routine ONE TIME for 1 Occurrences starting 05/05/2022 until 05/05/2022 documented as of this encounter Procedures Procedure Name Priority Date/Time Associated Diagnosis Comments TELEMETRY REPORT 05/09/2022 11:0 6 AM S[facility]E TELEMETRY REPORT 05/09/2022 11:0 5 AM S[facility]E CBC WITHOUT DIFFERENTIAL Routine 05/06/2022 5:05 AM S[facility]TTE BASIC METABOLIC PANEL Routine 05/06/2022 5:05 AM [facility] PATHOLOGY Pathology 05/05/2022 12:28 PM SOUBRETTE Morbid obesity HERNIA PARAESOPHAGEAL REPAIR LAPAROSCOPIC 05/05/2022 9:49 AM SOUBRETTE Morbid obesity Case Notes VITA BCBS PP NE LAPS GSTRC RSTRICTIV PX LONGITUDINAL GASTRECTOMY 05/05/2022 9:49 AM S[facility]TTE Morbid obesity Case Notes VITA BCBS PP VERIFICATION BLOOD GROUP Stat 05/05/2022 9:29 AM SOUBRETTE Encounter for blood typing POC , URINE Routine 05/05/2022 8:55 AM S[facility]TTE PREPARE RED BLOOD CELLS Routine 05/05/2022 12:15 AM S[facility]E PREPARE RED BLOOD CELLS Routine 05/05/2022 12:15 AM SOUBRETTE documented in this encounter Results * TELEMETRY REPORT (05/09/2022 11:06 AM SOUBRETTE) Provider Scanning ECG ORDERABLES * TELEMETRY REPORT (05/09/2022 11:05 AM SOUBRETTE) Provider Scanning ECG ORDERABLES * (ABNORMAL) BASIC METABOLIC PANEL (05/06/2022 5:05 AM SOUBRETTE) SODIUM 138 136 - 145 mmol/L 05/06/2022 7:01 AM [facility] - [facility] POTASSIUM 4.0 3.5 - 5.0 mmol/L 05/06/2022 7:01 AM [facility] - . [facility] CHLORIDE 104 98 - 107 mmol/L 05/06/2022 7:01 AM [facility] - . [facility] CO2 21(L) 22 - 29 mmol/L 05/06/2022 7:01 AM [facility] - [facility] CALCIUM 8.7 8.6 - 10.2 mg/dL 05/06/2022 7:01 AM [facility] - [facility] BUN 8 6 - 20 mg/dL 05/06/2022 7:01 AM [facility] LAB[facility]AT[facility] SERVICES - [facility] CREATININE 0.73 0.51 - 0.95 mg/dL 05/06/2022 7:[address] [facility] GLUCOSE 91 74 - 99 mg/dL 05/06/2022 7:[address] [facility] GFR >60 >=60 mL/min/1.7 3 sq meter 05/06/2022 7:01 AM [facility] Comment:eGFR calculated with 2020 CKD-EPI equation. Vegetarian diet, extremely high or low muscle mass, and may affect results. Cystatin C with Glomerular Filtration Rate is a suitable alternative for these patients. ANION GAP 13 8 - 16 mmol/L 05/06/2022 7:01 AM [facility] Blood Venipuncture / Unknown 05/06/2022 5:05 AM S[facility]TTE 05/06/2022 6:06 AM S[facility]E Jerrell Byrd DO CHEMISTRY ORDERABLES [facility] TierPM [facility]# [id number] [address] [place], [place] [id number] * (ABNORMAL) CBC WITHOUT DIFFERENTIAL (05/06/2022 5:05 AM SOUBRETTE) WBC 11.2(H) 4.0 - 9.8 K/uL 05/06/2022 6:26 AM [facility] RBC 4.25 3.90 - 4.90 M/uL 05/06/2022 6:26 AM [facility] HEMOGLOBIN 11.9 11.8 - 14.8 g/dL 05/06/2022 6:26 AM [facility] HEMATOCRIT 37.2 35.5 - 44.0 % 05/06/2022 6:26 AM [facility] MCV 87.5 82.0 - 99.0 fL 05/06/2022 6:26 AM [facility] MCH 28.0 27.2 - 32.6 pg 05/06/2022 6:[address] [facility] MCHC 32.0 31.5 - 35.5 g/dL 05/06/2022 6:26 AM [facility] PLATELETS 246 140 - 350 K/uL 05/06/2022 6:26 AM [facility] MPV 12.2 9.3 - 12.4 fL 05/06/2022 6:[address] [facility] RDW 12.4 11.5 - 14.5 % 05/06/2022 6:[address] [facility] RDW-STDEV 39.8 37.1 - 48.7 fL 05/06/2022 6:[address] [facility] Blood Venipuncture / Unknown 05/06/2022 5:05 AM S[facility]TTE 05/06/2022 6:07 AM [facility] Jerrell Byrd DO HEMATOLOGY ORDERABLE S [facility]# [id number] [address] [place] [address] * PATHOLOGY (05/05/2022 12:28 PM SOUBRETTE) CASE REPORT Surgical Pathology Report ? Case: [id number] ? Authorizing Provider: ??Jerrell Byrd DO ? Collected: ? 05/05/2022 12:28 PM ? Ordering Location: ? [facility] ?Received: ?05/05/2022 02:06 PM ? Operating Room ? Pathologist: ? Jemma Rivero MD ? Specimens: ?? A) - Soft Tissue, esophageal lipoma ? B) - Stomach ? 2 5:06 PM [facility] [employer] TierPM SERVICES [facility] FINAL DIAGNOSIS Soft tissue, esophageal lipoma, excision: -Benign adipose tissue, compatible with lipoma. Stomach, laparoscopic longitudinal gastrectomy: -Chronic inflammation, mild. -No evidence of dysplasia or malignancy. 2 5:06 PM [facility] [employer] [facility] S DESCRIPTION The specimens are received in two containers each labeled Renata Garciason . Received in the first container additionally labeled esophageal lipoma is an unoriented ovoid segment of soft yellow fatty tissue measuring 2.5 x 2.3 x 1.3 cm. The specimen is inked black entirely and sectioned to show soft yellow fatty cut surface. Digital Printer sections are submitted labeled A1. Received in the second container additionally labeled stomach is an 18 x 4.5 x 2 cm wedge-shaped segment of stomach. The serosa is smooth and dull. A staple line is present along 1 edge. The mucosa is langston-pink with focal langston putative polyps measuring 0.2 cm in greatest dimension. Digital Printer sections are submitted labeled B1 through B2 including putative polyps in B2 with serosa inked black. ARC 2 5:[address] [facility] MICROSCOPIC DESCRIPTION The slides are labeled [id number] and Renata Lei. Sections are of the esophageal lipoma reveal benign adipose tissue, compatible with lipoma. Sections of stomach reveal mild chronic inflammation and no evidence of dysplasia or malignancy. 2 5:[address] [facility] OPERATIVE PROCEDURE 1: GASTRECTOMY LONGITUDINAL LAPAROSCOPIC 2: HERNIA PARAESOPHAGEAL REPAIR LAPAROSCOPIC 2 5:[address] [facility] CLINICAL INFORMATION Morbid obesity [E66.01] E66.01-Morbid obesity 2 5:[address] [facility] COMMENT Special stain, immunohistochemical, and/or in situ hybridization results are interpreted with controls that demonstrate appropriate staining reactions. Note on use of immunohistochemistry reagents and in situ hybridization probes: These tests were developed and their performance characteristics determined by [facility], Department of Laboratory Medicine. It has not [...] part or completely in the following laboratories: [facility], CLIA #[id number] [address] [place] [address] [facility], [facility], [place] #[id number] [address] [place] [address] [facility]/[place], [place] #[id number] [address] [place] [address] This report was created with the [employer] voice-activated dictation system. Inherent to this system is the possibility of syntax, grammar, punctuation and other errors that could impact the interpretation of the report. If there are interpretative questions about aspects of this report, please contact the performing pathologist. 5:06 PM SOUBRETTE [facility]ORATORY SERVICES [facility] Tissue (Soft Tissue) Collection / Unknown 05/05/2022 12:28 PM S[facility]E 05/05/2022 2:06 PM [facility] Tissue specimen (specimen) ENTIRE STOMACH / Unknown 05/05/2022 12:46 PM S[facility]TTE 05/05/2022 2:06 PM [facility] Jerrell Byrd DO PATHOLOGY/CYTOLOGY O RDERABLES [facility] TierPM [facility] CLIA# [id number] [address] [place] [address] * VERIFICATION BLOOD GROUP (05/05/2022 9:29 AM SOUBRETTE) ABO GROUP O 05/05/2022 10:25 AM S[facility] LABORATORY SERVICES -- [facility] RH (D) TYPE Positive 05/05/2022 10:25 AM [facility] -- [facility] Blood Venipuncture / Unknown 05/05/2022 9:29 AM S[facility]TTE 05/05/2022 9:29 AM [facility] Pamela Silva MD BLOOD BANK ORD ERABLES Performing Organization Address [facility]/ZIP Co de Phone Number [facility] TierPM [facility] CLIA# [id number] [address] [place] [address] * POC , URINE (05/05/2022 8:55 AM SOUBRETTE) HCG QUAL URINE Negative Negative 05/05/2022 8:55 AM S[facility] Urine 05/05/2022 8:55 AM S[facility]E 05/05/2022 3:21 PM S[facility] Jerrell Byrd DO POINT OF CARE TESTIN G [facility] CLIA# [id number] [address] [place] [address] * PREPARE RED BLOOD CELLS (05/05/2022 12:15 AM SOUBRETTE) COMPONENT TYPE [id number] [facility] COMPONENT IDENTIFICATION [id number] [facility] UNIT ABO O [facility] RH POS [facility] CROSSMATCH Compatible [facility] COMPONENT STATUS Returned [facility] COMPONENT EXPIRATION DATE/TIME [facility] COMPONENT CODING SYSTEM 5100 [facility] 05/05/2022 12:1 5 AM [facility] Jerrell Byrd DO LAB TRANSFUSION GOSIA QUISPE [facility] CLIA# [id number] [address] [place] [address] * PREPARE RED BLOOD CELLS (05/05/2022 12:15 AM S[facility]BRETTE) COMPONENT TYPE [id number] [facility]ATORY [facility] COMPONENT IDENTIFICATION [id number] [facility] -- [facility] UN[facility] ABO O [facility] RH POS [facility] CROSSMATCH Compatible [facility] COMPONENT STATUS Returned [facility] COMPONENT EXPIRATION DATE/TIME [id number] [facility] COMPONENT CODING SYSTEM 5[address] [facility] 05/05/2022 12:1 5 AM [facility] Jerrell Byrd DO LAB TRANSFUSION GOSIA QUISPE [facility] CLIA# [id number] [address] [facility] [place] [address] documented in this encounter Visit Diagnoses Diagnosis S/P laparoscopic surgery- Primary Other postprocedural status Encounter for blood typing Morbid obesity Morbid obesity documented in this encounter Administered Medications Inactive Administered Medications - up to 3 most recent administrations Medication Order MAR Action Action Date Dose Rate Site bupivacaine-EPINEPHrin e (SENSORCAINE-EPINEPHRI NE) 0.5 %-1:200,000 injection INTRA-PROCEDURE PRN, Starting on Thu05/05/22 at 1248, Until Thu05/05/22 at 1318, Routine, Intra-op Given 05/05/2022 12:48 PM SOUBRETTE 30 mL Operative Site escitalopram oxalate (LEXAPRO) tablet 10 mg 10 mg, Oral, DAILY, First dose on Thu05/06/22 at 0900, Until Discontinued, Routine, Previous Med: escitalopram oxalate (LEXAPRO) 10 mg tablet - Orig Sig - Take 10 mg by mouth daily. Given 05/06/2022 8:53 AM SOUBRETTE 10 mg heparin injection 5,000 Units 5,000 Units, subCUT, EVERY 8 HOURS, First dose on Thu05/05/22 at 2000, Until Discontinued, Routine, Post-op - Floor Given 05/06/2022 5:30 AM SOUBRETTE 5,000 Units Abdomen, Right Lower Quadrant Given 05/05/2022 8:49 PM SOUBRETTE 5,000 Units A bdomen, Right Lower Quadrant HYDROcodone-acetaminophen (HYCET) 7.5-325 mg/15 mL oral solution 15 mL 15 mL (7.5 mg), Oral, EVERY 4 HOURS PRN, Starting on Thu05/05/22 at 1620, Until Thu05/06/22 at 1724, Pain (See admin instructions), Routine, Post-op - Floor Given 05/06/2022 10:39 AM SOUBRETTE 15 mL ketorolac (TORADOL) injection 15 mg 15 mg, IV, EVERY 6 HOURS PRN, Starting on Thu05/05/22 at 1620, Until Thu05/06/22 at 1619, Other (See Comment), Cramping or aching pain, Routine, Post-op - Floor Given 05/06/2022 10:39 AM SOUBRETTE 15 mg Given 05/05/2022 11:13 PM SOUBRETTE 15 mg Given 05/05/2022 4:48 PM SOUBRETTE 15 mg lactated ringers infusion IV, at 125 mL/hr, CONTINUOUS, Starting on Thu05/05/22 at 1630, Until Thu05/06/22 at 1724, Routine, Post-op - Floor New Bag 05/06/2022 12:22 AM SOUBRETTE 125 mL/hr Rate Verify 05/05/2022 4:30 PM SOUBRETTE 125 mL/hr morphine 4 mg/mL injection 4 mg 4 mg, IV, EVERY 4 HOURS PRN, Starting on Thu05/05/22 at 1620, Until Thu05/06/22 at 1724, Pain (See admin instructions), Pain, Break-Through, Routine, Post-op - Floor Given 05/06/2022 12:17 AM SOUBRETTE 4 mg naloxone (NARCAN) 0.4 mg/mL injection 0.1 mg 0.1 mg, IV, SEE ADMIN INSTRUCTIONS, Starting on Thu05/05/22 at 1012, Until Thu05/06/22 at 1724, Routine, PACU pantoprazole (PROTONIX) injection 40 mg 40 mg, IV, DAILY, First dose on Thu05/06/22 at 0900, Until Discontinued, Routine, Post-op - Floor, Indication: Gastroesophageal reflux disease (GERD) Given 05/06/2022 9:00 AM SOUBRETTE 40 mg sodium chloride 0.9 % irrigation solution INTRA-PROCEDURE PRN, Starting on Thu05/05/22 at 1248, Until Thu05/05/22 at 1318, Routine, Intra-op Given 05/05/2022 12:48 PM SOUBRETTE 3,000 mL Operative Site documented in this encounter Active and Recently Administered Medications Times are shown in SOUBRETTE. Scheduled Medication Order 05/04/2022 05/05/2022 05/06/2022 bupivacaine-EPINEPHrine [...] Indication: Surgical prophylaxis 1201 (Given - Provider: MIKE Sheppard Jr.) escitalopram oxalate (LEXAPRO) tablet 10 mg 10 mg, Oral, DAILY, First dose on Thu05/06/22 at 0900, Until Discontinued, Routine, Previous Med: escitalopram oxalate (LEXAPRO) 10 mg tablet - Orig Sig - Take 10 mg by mouth daily. 0853 (Given - Provider: Amber Bran RN) heparin injection 5,000 Units (COMPLETED) 5,000 Units, subCUT, PRE-PROCEDURE ONCE, 1 dose, Starting on Thu05/05/22 at 0846, Until Thu05/05/22 at 0925, Routine, Pre-op 0925 (Given - Provider: Amber Guzman RN) heparin injection 5,000 Units 5,000 Units, subCUT, EVERY 8 HOURS, First dose on Thu05/05/22 at 2000, Until Discontinued, Routine, Post-op - Floor 2049 (Given - Provider: Farhat Godinez RN) 0530 (Given - Provider: Farhat Godinez RN)1300 (Not Given - Provider: Amber Bran RN - Reason: Patient off unit) lactated ringers [...] RN - Comment: barcode wont scan, checked [facility], correct med)1830 (Stopped - Provider: [...] Routine, PACU 1404 (Given - Provider: Cristino Ricks RN)1413 (Given - Provider: Cristino Ricks RN) ketorolac (TORADOL) injection 15 mg 15 mg, IV, EVERY 6 HOURS PRN, Starting on Thu05/05/22 at 1620, Until Thu05/06/22 at 1619, Other (See Comment), Cramping or aching pain, Routine, Post-op - Floor 1648 (Given - Provider: Scarlet Moser RN)2313 (Given - Provider: Farhat Godinez RN) 1039 (Given - Provider: Amber Bran, JUANJO) metoclopramide (REGLAN) 5 mg/mL injection 10 mg [...] DO) documented in this encounter Care Teams Acid Bath Mixer Relationship Specialty [place] [address] [facility] [address] [place] [phone] PCP - General Internal Medicine 04/08/21 documented as of this encounter
--- OUTSIDE RECORDS SUMMARY | 2024-05-29 17:30 | XMS_ITS | Encounter Summary ---
Author Organization [facility] Address [address] Kaplan: Epic Prelude [place]T [place] [address] Care Team Providers Care Casting Technician Name Role Phone Jai Guadarrama MD Primary Care Provider +1- [phone] Encounter Details Date Type Department Care Team (Late st Contact Info) Description 05/21/2022 External Device Data Initial Department [address] KAPLAN: [place] [address] [facility], Social History Tobacco Use Types Packs/Day [...] Coronavirus/COVID-19? No / Unsure 05/22/2022 9:35 AM HOUSEKEEPER CLEANING COOKING documented as of this encounter Plan of Treatment Not on file documented as of this encounter Visit Diagnoses Not on filedocumented in this encounter Care Teams Casting Technician Relationship Specialty [place] [address] [place] [phone] PCP - General Internal Medicine 04/08/21 documented as of this encounter
--- OUTSIDE RECORDS SUMMARY | 2024-05-29 17:30 | XMS_ITS | Encounter Summary ---
Author Organization [facility] Address [address] [place] [address] Care Team Providers Care Physical Science Technician Name Role Phone Jai Guadarrama MD Primary Care Provider +1- [phone] Reason for Visit * Reason Onset Date Comments Erroneous encounter-disregard 07/24/2022 Encounter Details Date Type Department Care Team (Late st Contact Info) Description 07/24/[address] [facility] Internal Medicine Angelica Jimenez [id number] [place] [address] [place] [address] [address] [place] [address] Erroneous encounter-disregard Social History Tobacco Use Types Packs/Day Years [...] Coronavirus/COVID-19? No / Unsure 07/24/2022 2:37 PM SR. LOGISTICS ANALYST documented as of this encounter Plan of Treatment Not on file documented as of this encounter Visit Diagnoses Not on filedocumented in this encounter Care Teams Physical Science Technician Relationship Specialty Start [place] [address] [facility] [address] [place] [address] PCP - General Internal Medicine 04/08/21 documented as of this encounter
--- OUTSIDE RECORDS SUMMARY | 2024-05-29 17:30 | XMS_ITS | Encounter Summary ---
Author Organization [facility] Address [address] [place] [address] Care Team Providers Care Automobile Carpets Molder Name Role Phone Jai Guadarrama MD Primary Care Provider +1- [phone] Encounter Details Date Type Department Care Team (Late st Contact Info) Description 05/26/2023 External Device Data [facility] ABSTRACTION Provider, Abstract [...] on filedocumented in this encounter Care Teams Automobile Carpets Molder Relationship Specialty [place] [address] [facility] [address] [place] [phone] PCP - General Internal Medicine 04/08/21 documented as of this encounter
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
--- OUTSIDE RECORDS SUMMARY | 2024-05-29 17:30 | XMS_ITS | Encounter Summary ---
Author Organization [facility] Address [address] [place]: Epic Prelude [place] [address] Care Team Providers Care Talent Sourcer Name Role Phone Jai Guadarrama MD Primary Care Provider +1- [phone] Encounter Details Date Type Department Care Team (Latest Contact Info) Description 05/22/2022 Travel Social History Tobacco Use Types Packs/Day [...] Coronavirus/COVID-19? No / Unsure 05/22/2022 9:35 AM TRUCKLOAD CHECKER documented as of this encounter Plan of Treatment Not on file documented as of this encounter Visit Diagnoses Not on filedocumented in this encounter Care Teams Talent Sourcer Relationship Specialty [place] [address] [place] [phone] PCP - General Internal Medicine 04/08/21 documented as of this encounter
--- OUTSIDE RECORDS SUMMARY | 2024-05-29 17:30 | XMS_ITS | Encounter Summary ---
Author Organization [facility] Address [address] [place] [address] Care Team Providers Care Quarry Boss Name Role Phone Jai Guadarrama MD Primary Care Provider +1- [phone] Reason for Visit * Reason Onset Date Comments Medication Refill 03/16/2023 Encounter Details Date Type Department Care Team (Late st Contact Info) Description 03/16/2023 Refill [facility] Internal Medicine Angelica Jimenez [address] [place] [address] [place] [address] [address] [place] [phone] Anxiety state Social History Tobacco Use Types Packs/Day Years [...] as of this encounter Visit Diagnoses Diagnosis Anxiety state Anxiety state, unspecified documented in this encounter Care Teams Quarry Boss Relationship Specialty Start [place] [address] [address] [place] [phone] PCP - General Internal Medicine 04/08/21 documented as of this encounter
--- OUTSIDE RECORDS SUMMARY | 2024-05-29 17:30 | XMS_ITS | Encounter Summary ---
Author Organization [facility] Address [address] [place] [address] Care Team Providers Care Shoe Stamper Name Role Phone Jai Guadarrama MD Primary Care Provider +- [phone] Reason for Visit * Auth/Cert Specialty Diagnoses / Procedures Referred By Contac t Referred To Contact Diagnoses Morbid obesity Morbid obesity [E66.01] Procedures MN LAP, THELMA RESTRICT PROC, LONGITUDINAL GASTRECTOMY MN LAP, THELMA RESTRICT PROC, LONGITUDINAL GASTRECTOMY Jerrell Byrd, [address] [address] Referral ID Status Reason Start Date Expiration Date Visits Re quested Visits Authorized [id number] 03/21/2022 1 1 Encounter Details Date Type Department Care Team (Late st Contact Info) Description 05/05/2022 11:44 AM DISPATCH SUPERVISOR Anesthesia Event [facility] [address] [place] [address] Marta Ferris DO [address] [place] [address] Roverto Britton PA-C [address] [place] [address] Anesthesia Record Procedure Summary Procedure Name Responsible Anesthesiologist Anesthesia Start Time Anesthesia Stop Time GASTRECTOMY LONGITUDINAL LAPAROSCOPIC, (Abdomen) Marta Ferris DO 05/05/22 1144 05/05/22 1322 Events Date Time Event Comment 05/05/2022 1012 1012 Intended Opioids 1128 AN Equip Check Anesthesia eq uipment and materials checked in accordance with local policy. 1144 An Start 1145 In Room This event disp lays the In Room time documented in the Surgical Log. Deleting this event will not remove it from the log but will remove it from the Grid and Graph timeline. 1147 An Start Data 1152 Pre-Induction Immediate pre- induction anesthetic assessment performed. Vital signs as noted on graphic. 1152 An Induction 1155 An Intubation 1156 Anesthesia Ready 1211 Procedure Start This event d isplays the Procedure Start time documented in the Surgical Log. Deleting this event will not remove it from the log but will remove it from the Grid and Graph timeline. 1312 An Extubation Emergence unev entful Awake, spontaneous respirations. Adequate muscle strength demonstrated Adequate tidal volume. Orapharynx suctioned. Extubated with positive pressure ventilation. 1314 Procedure Stop This event di splays the Procedure Stop time documented in the Surgical Log. Deleting this event will not remove it from the log but will remove it from the Grid and Graph timeline. 1317 an stop data Transport from OR to recovery area or ICU, continuously present and monitoring ([id number]) 1318 Out of Room This event disp lays the Out of Room time documented in the Surgical Log. Deleting this event will not remove it from the log but will remove it from the Grid and Graph timeline. 1322 An Stop 1322 Hand-off to Receiving Clinic beth Post-Anesthetic transfer of care report elements to appropriate post-anesthesia recovery environment completed in accordance with procedure. 05/06/2022 1106 Follow-up Complete Meds Name Total dexAMETHasone (DECADRON) 4 mg/mL injecti on 8 mg rocuronium (ZEMURON) 10 mg/mL 5 mL injec tion 60 mg lidocaine PF (XYLOCAINE MPF) 20 mg/mL sy ringe 100 mg ceFAZolin in sterile water ( ANCEF) 2 gram/20 mL IV Syringe (PREMIX) 2,000 mg 2,000 mg fentaNYL (SUBLIMAZE) PF 50??mcg/mL injec tion 100 mcg propofol (DIPRIVAN) 10??mg/mL injection 630.95 mg midazolam (VERSED) 1 mg/mL injection 2 m g famotidine (pf) (PEPCID) 20 mg/2 mL inje ction 20 mg HYDROmorphone (DILAUDID) 2 mg/mL injecti on 1 mg phenylephrine 1 mg/10 mL (100 mcg/mL) in jection 100 mcg labetalol (NORMODYNE;TRANDATE) 5??mg/mL injection 5 mg sugammadex (BRIDION) 100 mg/mL injection 200 mg ondansetron (ZOFRAN) 4??mg/2 mL injectio n 4 mg lactated ringers bolus solution 1,000 mL 1,100 mL * Agents Name Air Sevoflurane % Sevoflurane O2 N2O Inspired N2O O2 * Blood No blood administrations on file. Lines, Drains, and Airways Type Details Placement Removal Peripheral IV Orientation: Right, Posterior; Location: Hand; Device: Angiocath; Gauge: 20 gauge; Needle Length: 1 in length; Insertion Attempts: 1; Patient Tolerance: tolerated well; Removal Indication: removed per policy; Removal Interventions: catheter intact 05/05/22 0922 by Amber Guzman RN 05/06/22 1050 by Amber Bran RN Endotracheal Airway Type: ETT; Size: 7; Attempts: 1; Verification: Auscultated bilateral breath sounds, Equal chest movement, Continuous waveform capnography 05/05/22 1155 by Chandan Luo Jr., AA-C 05/05/22 1312 by Chandan Luo Jr., AA-C Incision 05/05/22; 1215; surgical incision; other (comment); abdomen; 05/07/22; 0319 05/05/22 1215 by Enedelia Espinosa RN 05/07/22 0319 by PROVIDER, DISCHARGE PATIENT documented in this encounter Social History Tobacco [...] Coronavirus/COVID-19? No / Unsure 04/22/2022 8:50 AM DISPATCH SUPERVISOR documented as of this encounter OR Notes * Anesthesia Post-Op Follow-up Note - Amber Ryan RN - 05/06/2022 11:05 AM CST 05/06/2022 11:05 AM Renata Garciason No apparent Anesthesia related complications Amber Ryan RN ATCH SUPERVISOR * Anesthesia Postprocedure Evaluation - Harman Crespo MD - 05/05/2022 1:27 PM CST Phase I Postanesthesia Evaluation Including Modified Wendy Score Patient seen and evaluated: Modified Wendy Score: Score: 8 (05/05/22 132) COMMENTS: No apparent Anesthesia related complications RESPIRATORY FUNCTION: Respiration: able to breath and cough freely (05/05/22 132) [2=able to breathe and cough freely, 1=dyspnea, limited breathing or tachypnea, 0=apnea or mechanicventilator] O2 Saturation: needs O2 inhalation to maintain O2 saturation greater than 90% (05/05/22 132) [2=able to maintain O2 saturation greater than 92% on room air, 1=needs O2 inhalation to maintain O2 saturation greater than 90%, 0=O2 saturation less than 90% even with O2 supplement] Resp: 25 (05/05/22 1320)SpO2: 100 % (05/05/22 1320) CARDIOVASCULAR FUNCTION: Heart Rate: 80 bpm (05/05/22 1320) BP: 124/79 (05/05/22 1320) Circulation: BP within 20% of preanesthetic level (05/05/22 1321) [2=BP within 20% of preanesthetic level, 1=BP within 20-49% of preanesthetic level, 0=BP within 50%of preanesthetic level] MENTAL STATUS, NEURO, ACTIVITY: PATIENT PARTICIPATION IN EVALUATION:yes Consciousness: arousable on calling (05/05/22 1321) [2=fully awake, 1=arousable on calling, 0=not responding] Activity: able to move 4 extremities voluntarily or on command (05/05/22 1321) [2=able to move 4 extremities voluntarily or on command, 1=able to move 2 extremities voluntarily or on command, 0=unable to move extremities voluntarily or on command] TEMPERATURE: Temp: 36.6 ??C (05/05/22 1320) PAIN: Pain Rating: Rest: 0 (05/05/22 0908) Presence of Pain: denies pain/discomfort (05/05/22 0908) NAUSEA AND VOMITING: no nausea and no vomiting POSTOPERATIVE HYDRATION: well hydrated Intake/Output Summary (Last 24 hours) at 05/05/2022 1327 Last data filed at 05/05/2022 1314 Gross per 24 hour Intake 1100 ml Output 50 ml Net 1050 ml Harman Crespo MD 05/05/2022 1:27 PM Post Anesthesia Evaluation Vitals: Vitals Value Taken Time BP 124/79 05/05/22 1320 Temp 36.6 ??C 05/05/22 1320 Resp 23 05/05/22 1326 SpO2 100 % 05/05/22 1326 Pulse 75 05/05/22 1326 Heart Rate 74 bpm 05/05/22 1326 Vitals shown include unvalidated device data. Pain Rating: Pain Rating: Rest: 0 (05/05/22 0908) Presence of Pain: denies pain/discomfort (05/05/22 09) Anesthesia Post Evaluation No notable events documented. Harman Crespo MD ATCH SUPERVISOR * Anesthesia Handoff - Chandan Luo Jr., AA-C - 05/05/2022 1:22 PM DISPATCH SUPERVISOR Post-Anesthetic transfer of care report elements to [...] questions and acknowledgement of understanding. Vital Signs: vss/sv, refer to anesthesia record BP: 124/79 (05/05/2022 1:20 PM) Pulse: 80 (05/05/2022 1:20 PM) Heart Rate: 80 bpm (05/05/2022 1:20 PM) Temp: 36.6 ??C (05/05/2022 1:20 PM) Resp: 25 (05/05/2022 1:20 PM) SpO2: 100 % (05/05/2022 1:20 PM) 1:22 PM MIKE Sheppard Jr ATCH SUPERVISOR * Anesthesia Procedure Notes - Chandan Luo Jr., AA-C - 05/05/2022 12:03 PM CSTAssociated Order(s): Airway Airway Date/Time: 05/05/2022 11:55 AM Location: OR Plan: routine intubation Patient Identity Confirmed by: Verbally with patient and armband Airway: not difficult Staffing Performed By: MANAGER USER EXPERIENCE/Resident: Chandan Luo Jr., AA-C Indications and Patient Condition: Indications for Airway Management: Anesthesia Preoxygenated: Yes Patient Position: Sniffing Mask Difficulty Assessment: 1 - vent by mask Plan to extubate at end of case: Yes Final Airway Details: Final Airway Type: Endotracheal airway Final Endotracheal Airway: ETT Cuffed: Yes Cuff Volume (mL): 5 Technique Used for Successful ETT Placement: Direct laryngoscopy Devices/Methods Used in Placement: Straight blade Insertion Site: Oral Laryngoscope Blade/Videolaryngoscope Blade Size: 2 ETT Size (mm): 7.0 Measured from: Teeth ETT to Teeth (cm): 21 Tube secured with: Tape Placement Verified by: auscultation, end tidal CO2 and chest rise Cormack-Lehane Classification: Grade I - full view of glottis Number of Attempts at Approach: 1 Additional Comments: Atraumatic lips and teeth in pre anesthetic condition ATCH SUPERVISOR * Anesthesia Preprocedure Evaluation - Marta Ferris DO - 05/05/2022 8:41 AM CST Images from the original note were not included. Relevant Problems No relevant active problems Anesthesia Evaluation Patient summary reviewed and Nursing notes reviewed Airway Mallampati: II TM distance: >3 FB Neck ROM: full Dental Pulmonary - negative ROS and normal exam breath sounds clear to auscultation Cardiovascular - normal exam ECG reviewed Rhythm: regular Rate: normal ROS comment: 05/08 EKG: Low voltage, precordial leads Borderline T abnormalities, anterior leads Neuro/Psych (+) headaches, Comments: Migraines anxiety GI/Hepatic/Renal (+) GERD well controlled, Endo/Other (+) arthritis Abdominal (+) obese, Anesthesia History Anesthesia Plan ASA Final: 2 General Intravenous induction Oral ETT airway maintenance NPO status > 8 hours Anesthetic plan and risks discussed with Patient. Plan discussed with Anesthesiologist Multineedle Shirrer. Post-op Pain Control Plan to use IV or IM medication and Per surgeon for post-op pain control. Plan for postoperative opioid use Smoking Compliance Patient did not smoke on day of surgery ATCH SUPERVISOR documented in this encounter Miscellaneous Notes * Addendum Note - Amber Ryan RN - 05/06/2022 11:06 AM CST Addendum created 05/06/22 1106 by Amber Ryan RN Clinical Note Signed, Intraprocedure Event edited ATCH SUPERVISOR documented in this encounter Plan of Treatment Not on file documented as of this encounter Procedures Procedure Name Priority Date/Time Associated Diagnosis Comments MN ANES INSERT ENDOTRACHEAL AIRWAY Routine 05/05/2022 11:55 AM DISPATCH SUPERVISOR documented in this encounter Results * MN ANES INSERT ENDOTRACHEAL AIRWAY (05/05/2022 11:55 AM DISPATCH SUPERVISOR) Narrative Chandan Luo Jr., AA-C - 05/05/2022 11:55 AM DISPATCH SUPERVISOR Chandan Luo Jr., AA-C ? 05/05/2022 12:04 PM Airway Date/Time: 05/05/2022 11:55 AM Location: OR Plan: routine intubation Patient Identity Confirmed by: ??Verbally with patient and armband Airway: not difficult Staffing Performed By: MANAGER USER EXPERIENCE/Resident: Chandan Luo Jr., AA-C Indications and Patient Condition: ??Indications for Airway Management: ??Anesthesia ??Preoxygenated: Yes ?Patient Position: ??Sniffing ??Mask Difficulty Assessment: ??1 - vent by mask ??Plan to extubate at end of case: Yes ?? Final Airway Details: ??Final Airway Type: ??Endotracheal airway ??Final Endotracheal Airway: ??ETT ??Cuffed: Yes ?Cuff Volume (mL): ??5 ??Technique Used for Successful ETT Placement: ??Direct laryngoscopy ??Devices/Methods Used in Placement: ??Straight blade ??Insertion Site: ??Oral ??Laryngoscope Blade/Videolaryngoscope Blade Size: ??2 ??ETT Size (mm): ??7.0 ??Measured from: ??Teeth ??ETT to Teeth (cm): ??21 ??Tube secured with: ??Tape ??Placement Verified by: auscultation, end tidal CO2 and chest rise ?Cormack-Lehane Classification: ??Grade I - full view of glottis ??Number of Attempts at Approach: ??1 Additional Comments: ?? Atraumatic lips and teeth in pre anesthetic condition Marta Ferris DO PROCEDURE/MINOR SURG ICAL ORDERABLES documented in this [...] 1201, Routine, Pre-op, Antibiotic Indication: Surgical prophylaxis Given 05/05/2022 12:01 PM DISPATCH SUPERVISOR 2,000 mg dexAMETHasone (DECADRON) 4 mg/mL injection IV, INTRA-PROCEDURE PRN, Starting on Thu05/05/22 at 1201, Until Thu05/05/22 at 1323, Routine, Anesthesia Intra-op Given 05/05/2022 12:01 PM DISPATCH SUPERVISOR 8 mg famotidine PF (PEPCID) 20 mg/2 mL injection IV, INTRA-PROCEDURE PRN, Starting on Thu05/05/22 at 1144, Until Thu05/05/22 at 1323, Routine, Anesthesia Intra-op Given 05/05/2022 11:44 AM DISPATCH SUPERVISOR 20 mg fentaNYL PF (SUBLIMAZE) 50 mcg/mL injection IV, INTRA-PROCEDURE PRN, Starting on Thu05/05/22 at 1147, Until Thu05/05/22 at 1323, Routine, Anesthesia Intra-op Given 05/05/2022 11:47 AM DISPATCH SUPERVISOR 100 mcg HYDROmorphone (DILAUDID) 2 mg/mL injection IV, INTRA-PROCEDURE PRN, Starting on Thu05/05/22 at 1206, Until Thu05/05/22 at 1323, Routine, Anesthesia Intra-op Given 05/05/2022 1:01 PM DISPATCH SUPERVISOR 0.5 mg Given 05/05/2022 12:06 PM DISPATCH SUPERVISOR 0.5 mg labetaloL (NORMODYNE;TRANDATE) 5 mg/mL injection IV, INTRA-PROCEDURE PRN, Starting on Thu05/05/22 at 1241, Until Thu05/05/22 at 1323, Routine, Anesthesia Intra-op Given 05/05/2022 12:41 PM DISPATCH SUPERVISOR 5 mg lactated ringers bolus solution 1,000 mL 1,000 mL, IV, PRE-PROCEDURE ONCE, 1 dose, Starting on Thu05/05/22 at 0846, Until Thu05/05/22 at 1309, at 2,000 mL/hr, Administer over 30 Minutes, Routine, Pre-op New Bag 05/05/2022 1:09 PM DISPATCH SUPERVISOR New Bag 05/05/2022 11:44 AM DISPATCH SUPERVISOR lidocaine (PF) (XYLOCAINE MPF) 60 mg/3 mL (2 %) injection syringe IV, INTRA-PROCEDURE PRN, Starting on Thu05/05/22 at 1152, Until Thu05/05/22 at 1323, Routine, Anesthesia Intra-op Given 05/05/2022 11:52 AM DISPATCH SUPERVISOR 100 mg midazolam (VERSED) injection IV, INTRA-PROCEDURE PRN, Starting on Thu05/05/22 at 1144, Until Thu05/05/22 at 1323, Routine, Anesthesia Intra-op Given 05/05/2022 11:44 AM DISPATCH SUPERVISOR 2 mg ondansetron (ZOFRAN) 4 mg/2 mL injection IV, INTRA-PROCEDURE PRN, Starting on Thu05/05/22 at 1145, Until Thu05/05/22 at 1323, Routine, Anesthesia Intra-op Given 05/05/2022 11:45 AM DISPATCH SUPERVISOR 4 mg phenylephrine 1 mg/10 mL (100 mcg/mL) injection IV, INTRA-PROCEDURE PRN, Starting on Thu05/05/22 at 1219, Until Thu05/05/22 at 1323, Routine, Anesthesia Intra-op Given 05/05/2022 12:19 PM DISPATCH SUPERVISOR 100 mcg propofoL (DIPRIVAN) injection IV, INTRA-PROCEDURE PRN, Starting on Thu05/05/22 at 1152, Until Thu05/05/22 at 1323, Anesthesia Intra-op New Bag 05/05/2022 11:53 AM DISPATCH SUPERVISOR 50 mcg/kg/min 33.15 mL/hr Given 05/05/2022 11:52 AM DISPATCH SUPERVISOR 200 mg rocuronium injection IV, INTRA-PROCEDURE PRN, Starting on Thu05/05/22 at 1152, Until Thu05/05/22 at 1323, Routine, Anesthesia Intra-op Given 05/05/2022 12:31 PM DISPATCH SUPERVISOR 10 mg Given 05/05/2022 11:52 AM DISPATCH SUPERVISOR 50 mg sugammadex (BRIDION) 100 mg/mL injection IV, INTRA-PROCEDURE PRN, Starting on Thu05/05/22 at 1305, Until Thu05/05/22 at 1323, Routine, Anesthesia Intra-op Given 05/05/2022 1:05 PM DISPATCH SUPERVISOR 200 mg documented in this encounter Care Teams Shoe Stamper Relationship Specialty [place] [address] [facility] [address] [phone] PCP - General Internal Medicine 04/08/21 documented as of this encounter
--- OUTSIDE RECORDS SUMMARY | 2024-05-29 17:30 | XMS_ITS | Encounter Summary ---
Author Organization [facility] Address [address] [place] [address] Care Team Providers Care Rotary Bar Operator Name Role Phone Jai Guadarrama MD Primary Care Provider [phone]- [phone] Reason for Visit * Reason Onset Date Comments Nurse Navigation 05/07/2022 Encounter Details Date Type Department Care Team (Late st Contact Info) Description 05/07/2022 Telephone [facility] [address] [place] [address] Lorene Christianson, RN Nurse Navigation Social History Tobacco Use Types Packs/Day Years [...] Coronavirus/COVID-19? No / Unsure 04/22/2022 8:50 AM INDUSTRIAL ENERGY ENGINEER documented as of this encounter Miscellaneous Notes * Telephone Encounter - Lorene Christianson RN - 05/07/2022 2:08 PM CST Called patient on POD #2. Pt sounds very cheerful and tolerating liquids. Pt moving and is out and about. All questions and concerns addressed. STRIAL ENERGY ENGINEER documented in this encounter Plan of Treatment Not on file documented as of this encounter Visit Diagnoses Not on filedocumented in this encounter Care Teams Rotary Bar Operator Relationship Specialty [place] [address] [facility] [address] [phone] PCP - General Internal Medicine 04/08/21 documented as of this encounter
--- OUTSIDE RECORDS SUMMARY | 2024-05-29 17:30 | XMS_ITS | Encounter Summary ---
Author Organization [facility] Address [address] [place] [address] Care Team Providers Care Ticket Maker Name Role Phone Jai Guadarrama MD Primary Care Provider +1- [phone] Encounter Details Date Type Department Care Team (Late st Contact Info) Description 05/01/2023 External Device Data ST[facility] ABSTRACTION Provider, Abstract [...] on filedocumented in this encounter Care Teams Ticket Maker Relationship Specialty Start [place] [address] [facility] [address] [phone] PCP - General Internal Medicine 04/08/21 documented as of this encounter
--- OUTSIDE RECORDS SUMMARY | 2024-05-29 17:31 | XMS_ITS | Encounter Summary ---
Author Organization [facility] Address [address] [place] [address] Care Team Providers Care Waxer Floor Name Role Phone Jai Guadarrama MD Primary Care Provider [phone]- [phone] Encounter Details Date Type Department Care Team (Late st Contact Info) Description 11/21/2021 Abstract [facility] Surgical Spec [id number] [place] [address] Robbi Garcia, RN Social History Tobacco Use Types Packs/Day Years Used Date Smoking Tobacco: Former Cigarettes Q uit: 2018 Smokeless Tobacco: Never Alcohol Use Standard Drinks/Week [...] suspected to have Coronavirus/COVID-19? No / Unsure 10/30/2021 7:09 AM CDT documented as of this encounter Plan of Treatment Not on file documented as of this encounter Visit Diagnoses Not on filedocumented in this encounter Care Teams Waxer Floor Relationship Specialty Start [place] [address] [facility] [address] [phone] PCP - General Internal Medicine 04/08/21 documented as of this encounter
--- OUTSIDE RECORDS SUMMARY | 2024-05-29 17:31 | XMS_ITS | Encounter Summary ---
Author Organization [facility] Address [address] [place]: Epic Prelude [place]T [place] [address] Care Team Providers Care Professor Of Fine Art Name Role Phone Unavailable Primary Care Provider Unavailabl e Encounter Details Date Type Department Care Team (Latest Contact Info) Description 12/11/2020 Travel Social History Tobacco Use Types Packs/Day Years Used Date Smoking Tobacco: Never Sex and Gender Information Value Date Recorded Sex Assigned at Not on file Gender Identity Not on file Sexual Orientation Not on file COVID-19 Exposure Response Date Recorded In the last month, have you been in contact with someone who was confirmed or suspected to have Coronavirus / COVID-19? No / Unsure 12/11/2020 8:41 AM CDT documented as of this encounter Plan of Treatment Not on file documented as of this encounter Visit Diagnoses Not on filedocumented in this encounter
--- OUTSIDE RECORDS SUMMARY | 2024-05-29 17:31 | XMS_ITS | Encounter Summary ---
Author Organization [facility] Address [address] [facility] [place] [place] [address] Care Team Providers Care Model Home Sales Greeter Name Role Phone Jai Guadarrama MD Primary Care Provider [phone]- [phone] Reason for Visit * Reason Comments Preop Exam Needs pre-op exam fo r bariatric surgery. States that all she needs is a form filled out for the surgery. Also requesting dramamine patches as she plans on going on a cruise on March 22. Encounter Details Date Type Department Care Team (Late st Contact Info) Description 12/17/2021 3:30 PM CDT Office Visit [facility] Internal Medicine Angelica Jimenez [id number] [facility] [address] [place] [address] [place] [address] [address] [facility] [address] [place] [address] Morbid obesity with body mass index (BMI) of 40.0 or higher (Primary Dx); History of migraine headaches; Anxiety state; H/O motion sickness Social History Tobacco Use Types Packs/Day Years [...] suspected to have Coronavirus/COVID-19? No / Unsure 12/17/2021 3:11 PM CDT documented as of this encounter Last Filed Vital Signs Vital Sign Reading Time Taken Comments Blood Pressure 122/74 12/17/2021 3:15 PM CDT Pulse 89 12/17/2021 3:15 PM CDT Temperature 36.7 ??C (98.1 ??F) 12/17/2021 3:15 PM CD T Respiratory Rate 18 12/17/2021 3:15 PM CDT Oxygen Saturation 97% 12/17/2021 3:15 PM CDT Inhaled Oxygen Concentration - - Weight 120.7 kg (266 lb) 12/17/2021 3:15 PM CDT Height 162.6 cm (5' 4 ) 12/17/2021 3:15 PM CDT Body Mass Index 45.66 12/17/2021 3:15 PM CDT documented in this encounter Progress Notes * Jai Guadarrama MD - 12/17/2021 3:25 PM CDT Renata Lei is here for Preop Exam (Needs pre-op exam for bariatric surgery. States that all sheneeds is a form filled out for the surgery. Also requesting dramamine patches as she plans on goingon a cruise on March 22. ) Has established care with Dr. Byrd - have discussed sleeve gastrectomy tentatively for mid-April. Has undergone an EGD and UGI, and has completed the psychiatric evaluation and is now undergoing classes. Doing well at present. Asymptomatic. Here to have form filled out by me to approve the surgery from a medical standpoint. States she is going on a cruise in March and is requesting scopolamine patches, as she tends to become seasick. They were effective at her last cruise. No other new issues or concerns. Past Medical History: Diagnosis Date ??? Anxiety ??? GERD (gastroesophageal reflux disease) August 2000 ??? Migraine headache ??? Morbid obesity Past Surgical History: Procedure Laterality Date ??? HX SECTION July 03 2015 ??? HX KNEE REPLACEMENT Left 1997 ??? HX LAP CHOLECYSTECTOMY 2005 ??? MT ESOPHAGOGASTRODUODENOSCOPY TRANSORAL DIAGNOSTIC N/A 10/11/2021 ESOPHAGOGASTRODUODENOSCOPY performed by Jerrell Byrd DO at [facility] Family History Problem Relation Name Age of Onset ??? Diabetes Father Remy Lei ??? High Cholesterol Father Remy Lei ??? Breast Cancer Maternal Grandmother ??? Ovarian Cancer Maternal Grandmother ??? Breast Cancer Maternal Aunt x3 ??? Ovarian Cancer Maternal Aunt x2 ??? Lung Cancer Paternal Grandfather Harman Lei ??? Lung Cancer Paternal Grandmother Rosi Ambriz ??? Diabetes Paternal Grandmother Rosi Ambriz Social History Tobacco Use ??? Smoking status: Former Smoker Packs/day: 0.50 Years: 15.00 Pack years: 7.50 Types: Cigarettes Quit date: 10/20/2017 Years since quittin.1 ??? Smokeless tobacco: Never Used Substance Use Topics ??? Alcohol use: Yes Comment: occas ??? Drug use: Never Immunization History Administered Date(s) Administered ??? (Press About Us) (12 YR UP) COVID-19 VACCINE - EMERGENCY USE AUTHORIZATION, MRNA,[id number](PF) 30 MCG/0.3 ML IM SUSP 07/27/2020, 08/16/2020 ??? Influenza Vaccine 06/10/2020, 06/11/2020, 03/05/2021, 03/05/2021 Current Outpatient Medications: ??? scopolamine (Transderm-Scop) 1 mg/72 hr patch, Apply 1 Patch to skin as directed see administration instructions., Disp: 3 Patch, Rfl: 0 ??? nortriptyline (PAMELOR) 25 mg capsule, Take 1 Capsule (25 mg) by mouth daily., Disp: 90 Capsule, Rfl: 3 ??? cetirizine (ZyrTEC) 10 mg tablet, Take 1 Tablet (10 mg) by mouth daily, Disp: 90 Tablet, Rfl: 3 ??? ALPRAZolam (XANAX) 0.25 mg tablet, Take 1 Tablet (0.25 mg) by mouth 3 times daily as needed forAnxiety., Disp: 30 Tablet, Rfl: 0 ??? escitalopram oxalate (LEXAPRO) 10 mg tablet, Take 10 mg by mouth daily., Disp: , Rfl: ??? topiramate (Topamax) 200 mg tablet, Take 1 Tablet (200 mg) by mouth daily., Disp: 90 Tablet, Rfl: 3 Review of Systems Constitutional: Negative. HENT: Negative. Respiratory: Negative. Cardiovascular: Negative. Gastrointestinal: Negative. Genitourinary: Negative. Musculoskeletal: Negative. Skin: Negative. Neurological: Negative. All other systems reviewed and are negative. Vitals With Comments 12/17/2021 1515 10/11/2021 0938 10/11/2021 0933 10/11/2021 0928 BP: 122/74 110/67 111/72 98/60 Pulse: 89 73 88 99 Resp: 18 18 Temp: 98.1 ??F (36.7 ??C) -- -- 97.1 ??F (36.2 ??C) Temp src: Temporal -- -- Temporal SpO2: 97 % 95 % 95 % 94 % Weight: 120.7 kg (266 lb) -- -- -- Height: 5' 4 (1.626 m) -- -- -- PHYSICAL EXAM: General: alert, oriented, no distress Lungs: clear without wheezes, rales, rhonchi Cor: regular without murmurs, gallops, rubs Abdomen: soft non-tender; no masses, guarding, rebound. BS active Extremities: normal ROM; no edema Neuro: non-focal ASSESSMENT AND PLAN: ICD-10-CM ICD-9-CM 1. Morbid obesity with body mass index (BMI) of 40.0 or higher E66.01 278.01 Evaluation for bariatric surgery underway per Dr. Byrd Cleared medically from my standpoint Form has been signed and faxed 2. History of migraine headaches Z86.69 V12.49 Continue Topamax + nortriptyline 3. Anxiety state F41.1 300.00 Continue escitalopram + prn alprazolam 4. H/O motion sickness Z87.898 V13.89 Scopolamine patches #3 sent to pharmacy Orders Placed This Encounter ??? scopolamine (Transderm-Scop) 1 mg/72 hr patch Return in 7 months (on 07/24/2022) for annual physical or as needed. documented in this encounter Plan of Treatment Not on file documented as of this encounter Visit Diagnoses Diagnosis Morbid obesity with body mass index (BMI) of 40.0 or higher- Primary History of migraine headaches Personal history of other disorders of nervous system and sense organs Anxiety state Anxiety state, unspecified H/O motion sickness Personal history of other specified diseases documented in this encounter Care Teams Model Home Sales Greeter Relationship Specialty Start [place] [address] [facility] [address] [place] [id number] PCP - General Internal Medicine 04/08/21 documented as of this encounter
--- OUTSIDE RECORDS SUMMARY | 2024-05-29 17:31 | XMS_ITS | Encounter Summary ---
Author Organization [facility] Address [address] Attn: [place] [address] Care Team Providers Care Noc Technician Name Role Phone Unavailable Primary Care Provider Unavailabl e Encounter Details Date Type Department Care Team (Late st Contact Info) Description 06/11/2020 Orders Only Initial Department [address] [place]: [place] [address] Provider, Historical Social History Tobacco Use Types Packs/Day Years Used Date Smoking Tobacco: Never Assessed Sex and Gender Information Value Date Recorded Sex Assigned at Not on file Gender Identity Not on file Sexual Orientation Not on file documented as of this encounter Plan of Treatment Not on file documented as of this encounter Procedures Procedure Name Priority Date/Time Associated Diagnosis Comments T-SPOT TB Routine 06/11/2020 11:00 AM OVEN HEATER documented in this encounter Results * T-SPOT TB (06/11/2020 11:00 AM OVEN HEATER) [facility] T-SPOT TB Negative [facility] Comment: Normal Value: Negative A negative test result does not exclude the possibility of exposure to or infection with Mycobacterium tuberculosis (M. tuberculosis). ??Patients with recent exposure to TB infected individuals exhibiting a negative T-SPOT.TB result should be considered for retesting within 6 weeks or if other relevant clinical symptoms indicate. ??Results from T-SPOT.TB testing must be used in conjunction with each individual's epidemiological history, current medical status, and results of other diagnostic evaluations. ??The T-SPOT.TB test is qualitative and results are reported as positive, borderline or negative, given that the test controls perform as expected. In line with the Centers for Disease Control and Prevention's 2010 recommendation to report quantitative measurements alongside the qualitative result, the laboratory provides spot counts for informational purposes only. ??The T-SPOT.TB test should not be interpreted as a quantitative test. PANEL A SPOT COUNT [address] [facility] PANEL B SPOT COUNT [address] [facility] NEGATIVE CONTROL SPOT COUNT Passed [facility] POSITIVE CONTROL SPOT COUNT Passed [facility] Comment: FASTING: NO Test Performed at: [place] [facility], [place] [facility], [address] [place], [place] ??[address] Nacho Bruno MD,PhD 06/11/2020 11:0 0 AM OVEN HEATER Robert Pedersen MD MICROBIOLOGY - GENER AL ORDERABLES [facility] [address] [place] [address] documented in this encounter Visit Diagnoses Not on filedocumented in this encounter
--- OUTSIDE RECORDS SUMMARY | 2024-05-29 17:31 | XMS_ITS | Encounter Summary ---
Author Organization [facility] Address [address] [place] [address] Care Team Providers Care Finish Carpenter Name Role Phone Jai Guadarrama MD Primary Care Provider [phone]- [phone] Encounter Details Date Type Department Care Team (Late st Contact Info) Description 01/22/2022 Orders Only [facility] Pre Procedure Viral Testing Nicole [address] [place] [address] [place] [address] [address] [facility] [address] [place] [address] Contact with and (suspected) exposure to covid-19 (Primary Dx) Social History Tobacco Use Types [...] documented as of this encounter Results * (ABNORMAL) 2019 NOVEL CORONAVIRUS (COVID-19) PCR DETECTION (01/22/2022 4:38 PM CDT) COVID-19 PCR DETECTED( A) Not Detected 01/22/2022 11:37 PM CDT [facility] 01/22/2022 11:37 PM CDT [facility] Upper Respiratory ENTIRE NASOPHARYNX / Unknown Collection / Unknown 01/22/2022 4:38 PM CDT 01/22/2022 9:13 PM CDT Narrative [facility] - 01/22/2022 11:37 PM CDT This test has been authorized by the FDA under an Emergency Use Authorization for use by authorized laboratories.?? This test has been validated in accordance with the FDA's guidance regarding Coronavirus Disease-2019 testing.?? Optimum specimen types and timing for peak viral levels during infection have not been determined.?? A negative RT-PCR result does not rule out infection with the 2019-Novel Coronavirus. Robert Pedersen MD MICROBIOLOGY - [facility] AL ORDERABLES [facility] [employer] [facility] CLIA# [id number] [address] [place] [address] documented in this encounter Visit Diagnoses Diagnosis Contact with and (suspected) exposure to covid-19- Primary documented in this encounter Additional Health Concerns Infection Onset Date Last Indicated Resolved Time R/O COVID-19 01/22/2022 01/22/2022 01/22/2022 11:3 7 PM CDT documented as of this encounter Care Teams Finish Carpenter Relationship Specialty [place] [address] [facility] [address] [place] [phone] PCP - General Internal Medicine 04/08/21 documented as of this encounter
--- OUTSIDE RECORDS SUMMARY | 2024-05-29 17:31 | XMS_ITS | Encounter Summary ---
Author Organization [facility] Address [address] [place] [address] Care Team Providers Care Associate Sales Manager Name Role Phone Unavailable Primary Care Provider Unavailabl e Encounter Details Date Type Department Care Team (Late st Contact Info) Description 07/27/2020 2:35 PM DEFENSIVE SECONDARY COACH Immunization [facility] COVID Vaccine [address] [address] High priority for 2019 novel coronavirus vaccination (Primary Dx) Social History Tobacco Use Types [...] have Coronavirus / COVID-19? No / Unsure 07/23/2020 1:33 PM DEFENSIVE SECONDARY COACH documented as of this encounter Plan of Treatment Not on file documented as of this encounter Visit Diagnoses Diagnosis High priority for 2019 novel coronavirus vaccination- Primary documented in this encounter
--- OUTSIDE RECORDS SUMMARY | 2024-05-29 17:31 | XMS_ITS | Encounter Summary ---
Author Organization [facility] Address [address] [place] [address] Care Team Providers Care Launch Operator Name Role Phone Jai Guadarrama MD Primary Care Provider +- [phone] Reason for Referral * Outpatient Services (Routine) - Closed Specialty Diagnoses / Procedures Referred By Rigoberto french Referred To Contact EMG Diagnoses Carpal tunnel syndrome of right wrist Procedures EMG WITH NERVE CONDUCTION [place] Lake MD [address] [address] [address] [facility] [place] [address] Referral ID Status Reason Start Date Expiration Date Visits Re quested Visits Authorized [id number] Closed 04/01/2022 05/02/2023 1 1 GHT CHECKER Reason for Visit * Outpatient Services (Routine) - Closed Specialty Diagnoses / Procedures Referred By Rigoberto french Referred To Contact EMG Diagnoses Carpal tunnel syndrome of right wrist Procedures EMG WITH NERVE CONDUCTION Santana Lake MD [address] [address] [address] [place] [address] Referral ID Status Reason Start Date Expiration Date Visits Re quested Visits Authorized [id number] Closed 04/01/2022 05/02/2023 1 1 Encounter Details Date Type Department Care Team (Latest Contact Info) Description 04/08/2022 12:21 PM FREIGHT CHECKER - 04/08/2022 11:59 PM FREIGHT CHECKER Hospital Encounter [facility] Support Services [facility] [address] [place] [address] Santana Lake MD [address] [place] [address] Jai Beach MD [address] [place] [address] Discharge Disposition: Home or Self Care Social [...] suspected to have Coronavirus/COVID-19? No / Unsure 04/08/2022 12:14 PM FREIGHT CHECKER documented as of this encounter Medications at Time of Discharge Medication Sig Dispensed Refills Start Date End Date naloxone (NARCAN) 4 mg/spray [place], Non-Aerosol EMERGENCY USE ONLY: Administer 1 spray [...] of similar consistency. 30 Capsule 2 05/05/2022 nortriptyline (PAMELOR) 25 mg capsule Take 1 Capsule (25 mg) by mouth daily. 90 Capsule 3 06/24/2021 escitalopram oxalate (LEXAPRO) 10 mg tablet Take 10 mg by mouth daily. 12/19/2019 topiramate (Topamax) 200 mg tablet Take 1 Tablet (200 mg) by mouth daily. 90 Tablet 3 04/08/2021 HYDROcodone-acetaminop hen (HYCET) 7.5-325 mg/15 mL SolutionIndications:S/ P laparoscopic surgery Take 10 mL by mouth [...] 3 06/24/2021 03/16/2023 ALPRAZolam (XANAX) 0.25 mg tabletIndications:Anxi ety state Take 1 Tablet (0.25 mg) by mouth 3 times daily as needed for Anxiety. 30 Tablet 06/24/2021 03/16/2023 documented as of this encounter Procedure Notes * Jai Beach MD - 04/08/2022 12:30 PM CSTAssociated Order(s): EMG WITH NERVE CONDUCTION EMG/NCS Procedure Report [facility] Date of Service: 04/08/2022 Patient Name: Renata Lei Patient Age: 42 y.o. Date of : 1980 Gender: female BRIEF HISTORY: Renata is a 42 year old woman who presents for evaluation of hand symptoms. Worse on the right. Righthanded. Numbness and discomfort in first four fingers on right. PHYSICAL EXAMINATION: Decreased sensation palmar aspect first three fingers. APB 5-/5 on right. NERVE CONDUCTION STUDY: 1. Bilateral radial antidromic sensory nerve conduction studies recorded from the anatomic snuff box showed normal SNAP latencies, normal SNAP amplitudes, and normal SNCVs. 2. Bilateral median orthodromic mixed nerve conduction studies recorded across the wrist showed normal latencies, normal amplitudes, and normal conduction velocities. 3. Bilateral ulnar orthodromic mixed nerve conduction studies recorded across the wrist showed normal latencies, normal amplitudes, and normal conduction velocities. 4. Bilateral median to ulnar transcarpal comparisons showed significant peak latency differences (Rt - 0.48 ms, Lt - 0.40 ms). 5. Bilateral median to ulnar ring finger comparisons recorded using ring electrodes showed significant peak latency differences (Rt - 0.44 ms, Lt - 0.52 ms). 6. Bilateral median to radial thumb comparisons recorded using ring electrodes showed significant peak latency difference on the right (Rt - 0.44 ms, Lt - - 0.02 ms). 7. Bilateral combined sensory indices (CSIs) was significant on the right (Rt - 1.36 ms, Lt - 0.90 ms). 8. Bilateral median motor nerve conduction studies recorded from the APBs showed normal DMLs, normal CMAP amplitudes, and normal MNCVs. 9. Bilateral ulnar motor nerve conduction studies recorded from the ADMs showed normal DMLs, normalCMAP amplitudes, and normal MNCVs. ELECTROMYOGRAPHY: EMG was performed using a concentric needle electrode. 1. Left first dorsal inteosseous was normal. 2. Left abductor pollicis brevis was normal. 3. Right first dorsal interosseous was normal. 4. Right abductor pollicis brevis showed few polyphasic MUAPs, reduced recruitment. IMPRESSION: This is an abnormal EMG/NCS due to bilateral median nerve entrapment across the wrist (I.e., carpaltunnel syndrome). Worse on the right. Evidenced by abnormalities in sensory comparison nerve conduction studies. 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 Jai Beach MD [facility] Neurology GHT CHECKER documented in this encounter Plan of Treatment Not on file documented as of this encounter Procedures Procedure Name Priority Date/Time Associated Diagnosis Comments EMG WITH NERVE CONDUCTION Routine 04/08/2022 12:30 PM FREIGHT CHECKER Carpal tunnel syndrome of right wrist documented in this encounter Results * EMG WITH NERVE CONDUCTION (04/08/2022 12:30 PM FREIGHT CHECKER) [facility] - 04/08/2022 12:30 PM FREIGHT CHECKER Jai Beach MD ? 04/08/2022 ??1:14 PM EMG/NCS Procedure Report [facility] Date of Service: ??04/08/2022 Patient Name: ??Renata Lei Patient Age: ?? 42 y.o. Date of : ?? 1980 Gender: ?? female BRIEF HISTORY: Renata is a 42 year old woman who presents for evaluation of hand symptoms. Worse on the right. Right handed. Numbness and discomfort in first four fingers on right. PHYSICAL EXAMINATION: Decreased sensation palmar aspect first three fingers. APB 5-/5 on right. NERVE CONDUCTION STUDY: 1. Bilateral radial antidromic sensory nerve conduction studies recorded from the anatomic snuff box showed normal SNAP latencies, normal SNAP amplitudes, and normal SNCVs. 2. Bilateral median orthodromic mixed nerve conduction studies recorded across the wrist showed normal latencies, normal amplitudes, and normal conduction velocities. 3. Bilateral ulnar orthodromic mixed nerve conduction studies recorded across the wrist showed normal latencies, normal amplitudes, and normal conduction velocities. 4. Bilateral median to ulnar transcarpal comparisons showed significant peak latency differences (Rt - 0.48 ms, Lt - 0.40 ms). 5. Bilateral median to ulnar ring finger comparisons recorded using ring electrodes showed significant peak latency differences (Rt - 0.44 ms, Lt - 0.52 ms). 6. Bilateral median to radial thumb comparisons recorded using ring electrodes showed significant peak latency difference on the right (Rt - 0.44 ms, Lt - -0.02 ms). 7. Bilateral combined sensory indices (CSIs) was significant on the right (Rt - 1.36 ms, Lt - 0.90 ms). 8. Bilateral median motor nerve conduction studies recorded from the APBs showed normal DMLs, normal CMAP amplitudes, and normal MNCVs. 9. Bilateral ulnar motor nerve conduction studies recorded from the ADMs showed normal DMLs, normal CMAP amplitudes, and normal MNCVs. ELECTROMYOGRAPHY: EMG was performed using a concentric needle electrode. 1. Left first dorsal inteosseous was normal. 2. Left abductor pollicis brevis was normal. 3. Right first dorsal interosseous was normal. 4. Right abductor pollicis brevis showed few polyphasic MUAPs, reduced recruitment. IMPRESSION: This is an abnormal EMG/NCS due to bilateral median nerve entrapment across the wrist (I.e., carpal tunnel syndrome). Worse on the right. Evidenced by abnormalities in sensory comparison nerve conduction studies. 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 Jai Beach MD [facility] Neurology Santana Lake MD NEUROLOGY ORDER [facility] documented in this encounter Visit Diagnoses Diagnosis Carpal tunnel syndrome of right wrist Carpal tunnel syndrome documented in this encounter Care Teams Launch Operator Relationship Specialty Start [place] [address] [facility] [address] [place] [id number] PCP - General Internal Medicine 04/08/21 documented as of this encounter
--- OUTSIDE RECORDS SUMMARY | 2024-05-29 17:31 | XMS_ITS | Encounter Summary ---
Author Organization [facility] Address [address] [place] [address] Care Team Providers Care Supervisor Microfilm Duplicating Unit Name Role Phone Jai Guadarrama MD Primary Care Provider +1- [phone] Reason for Visit * Reason Comments Follow Up Encounter Details Date Type Department Care Team (Late st Contact Info) Description 03/20/2022 12:15 PM CDT Office Visit [facility] Surgical Spec [place] [address] [place] [address] Jerrell Byrd, DO [address] [place] [address] Morbid obesity with body mass index (BMI) of 40.0 to 49.9 (Primary Dx); Hypercholesterolemia; Low vitamin D level; Gastric reflux Social History Tobacco Use Types Packs/Day Years [...] Sign Reading Time Taken Comments Blood Pressure 122/80 03/20/2022 12:36 PM CDT Pulse - - Temperature - - Respiratory Rate - - Oxygen Saturation - - Inhaled Oxygen Concentration - - Weight 117.9 kg (260 lb) 03/20/2022 12:36 PM CDT Height 162.6 cm (5' 4 ) 03/20/2022 12:36 PM CDT Body Mass Index 44.63 03/20/2022 12:36 PM CDT documented in this encounter Progress Notes * Jerrell Byrd, DO - 03/25/2022 9:02 PM CST Images from the original note were not included. Patient: Renata Lei : 1980 [facility] [address] [place] [address] [address] [place] [address] PRE-OPERATIVE HISTORY & PHYSICAL 03/20/2022 CC: Morbid obesity HISTORY OF PRESENT ILLNESS: Renata Lei is a very pleasant individual who has developed morbid obesity with significant comorbidities and has failed multiple dietary attempts at weight loss. She has now successfully completed all required aspects of our Multidisciplinary Bariatric Surgery Program. She has a Last documented weight: Weight: 117.9 kg (260 lb) (03/20/22 1236), a height of 1.626 meters, and Body mass index is 44.63 kg/m??. Given these parameters, patient has morbid obesity with multiple severe medical comorbidities, and is to be scheduled for Laparoscopic Sleeve Gastrectomy. REVIEW OF SYSTEMS Constitutional (e.g., fever, weight loss): Negative Cardiovascular: Negative Respiratory: Negative Gastrointestinal: WNL Endocrine: Negative Hematologic/Lymphatic: Negative Integumentary (skin &/or breast): Negative Allergic/Immunologic: Negative Neurological: Negative Psychiatric: Negative Body mass index is 44.63 kg/m??. Starting weight: 270 lb Expected weight loss of 80-90 lb for this procedure. [place] body weight: 54.7 kg (120 lb 9.5 oz) Adjusted ideal body weight: 80 kg (176 lb 5.7 oz) Last 3 Encounter Weight Readings: Wt Readings from Last 3 Encounters: 03/20/22 117.9 kg (260 lb) 12/17/21 120.7 kg (266 lb) 10/11/21 118.4 kg (261 lb) Current Outpatient Medications Medication Sig Dispense Refill scopolamine (Transderm-Scop) 1 mg/72 hr patch Apply 1 Patch to skin as directed every 3 days 3 Patch 0 nortriptyline (PAMELOR) 25 mg capsule Take 1 Capsule (25 mg) by mouth daily. 90 Capsule 3 cetirizine (ZyrTEC) 10 mg tablet Take 1 Tablet (10 mg) by mouth daily 90 Tablet 3 ALPRAZolam (XANAX) 0.25 mg tablet Take 1 Tablet (0.25 mg) by mouth 3 times daily as needed for Anxiety. 30 Tablet 0 escitalopram oxalate (LEXAPRO) 10 mg tablet Take 10 mg by mouth daily. topiramate (Topamax) 200 mg tablet Take 1 Tablet (200 mg) by mouth daily. 90 Tablet 3 No current facility-administered medications for this visit. Past Surgical History: Procedure Laterality Date HX SECTION July 03 2015 HX KNEE REPLACEMENT Left 1998 HX LAP CHOLECYSTECTOMY 2005 [place] ESOPHAGOGASTRODUODENOSCOPY TRANSORAL DIAGNOSTIC N/A 10/11/2021 ESOPHAGOGASTRODUODENOSCOPY performed by Jerrell Byrd DO at [facility] Social History Socioeconomic History Marital status: Single Tobacco Use Smoking status: Former Packs/day: 0.50 Years: 15.00 Pack years: 7.50 Types: Cigarettes Quit date: 10/20/2017 Years since quittin.4 Smokeless tobacco: Never Substance and Sexual Activity Alcohol use: Yes Comment: occas Drug use: Never Sexual activity: Not Currently Partners: Male control/protection: I.U.D. Past Medical History: Diagnosis Date Anxiety GERD (gastroesophageal reflux disease) August 2000 Migraine headache Morbid obesity No Known Allergies All nursing notes have been reviewed. PHYSICAL EXAM Vitals: 03/20/22 1236 BP: 122/80 Weight: 117.9 kg (260 lb) Height: 5' 4 (1.626 m) Appearance: Obese female, appears in no apparent distress. Neuro: Alert & oriented x3, speech clear & fluent, gait normal. Lungs: Breathing comfortably on room air. CVS: RRR, normal S1, S2 auscultated, no M/C/R. Abdomen: WNL Lymph/Immunologic: WNL Psych: WNL Skin: No rashes or lesions. Imaging Upper GI X-ray: Results for orders placed during the hospital encounter of 10/08/21 XR UPR GI Narrative EXAMINATION: UPPER GI DATE: 10/08/2021 8:12 AM HISTORY: See Diagnosis. . Morbid obesity with BMI of 40.0-44.9, adult; Morbid obesity with BMI of 40.0-44.9, adult; Hypercholesterolemia; Gastric reflux; Migraine without status migrainosus, not intractable, unspecified migraine type; Anxiety; Family history of diabetes mellitus in father. COMPARISON: None TECHNIQUE: Barium was given by mouth without complication. FLUOROSCOPY TIME: 1.1 minutes. Dose: 46.2 mGy. 18 images. FINDINGS: Swallowing function is grossly intact. The esophagus is normal in caliber and appearance. There were no witnessed episodes of gastroesophageal reflux. The stomach is radiographically intact. There is prompt gastric emptying to normal duodenal sweep. A small hiatal hernia is seen. Postoperative clips right upper quadrant. Impression : Small hiatal hernia. DICTATION LOCATION: Location 1 - [facility] ENDOSCOPY: [facility] Endoscopy Patient Name: Renata Lei Procedure Date: 10/11/2021 Date of : 1980 Attending MD: Jerrell Byrd DO Procedure: Upper GI endoscopy Indications: Heartburn, Preoperative assessment for bariatric surgery to treat morbid obesity Providers: Jerrell Byrd DO Referring MD: Jai Guadarrama MD Medicines: Monitored Anesthesia Care Complications: No immediate complications. Estimated blood loss: Minimal. Procedure: Informed consent was obtained for the procedure, including moderate sedation after risks were discussed. Based on the pre-procedure assessment, including review of the patient's medical history, medications, allergies, and review of systems, the patient was deemed to be an appropriate candidate for sedation. A timeout was performed. Continuous ECG monitoring, pulse oximetry, blood pressure monitoring, and direct observation were performed. The Endoscope was introduced through the mouth, and advanced to the second part of duodenum. The upper GI endoscopy was accomplished without difficulty. The patient tolerated the procedure well. Estimated Blood Loss: Estimated blood loss was minimal. Findings: The examined esophagus was normal. A 2 cm hiatal hernia was present. No biopsies or other specimens were collected for this exam. Patchy mildly erythematous mucosa without bleeding was found in the prepyloric region of the stomach. Biopsies were taken with a cold forceps for Helicobacter pylori testing using CLOtest. Estimated blood loss was minimal. No gross lesions were noted in the entire examined duodenum. Impression: - Normal esophagus. - 2 cm hiatal hernia. No specimens collected. - Erythematous mucosa in the prepyloric region of the stomach. Biopsied. - No gross lesions in the entire examined duodenum. Recommendation: - Patient has a contact number available for emergencies. The signs and symptoms of potential delayed complications were discussed with the patient. Return to normal activities tomorrow. Written discharge instructions were provided to the patient. - Resume previous diet. - Continue present medications. - Await pathology results. - No repeat upper endoscopy for surveillance of Tejada's esophagus. - Return to Bariatric clinic at appointment to be scheduled. - The findings and recommendations were discussed with the patient. Jerrell Byrd, DO 10/11/2021 9:26:04 AM Number of Addenda: [address]; [place] [address] CLINICAL IMPRESSION: Morbid Obesity (Body mass index is 44.63 kg/m??.) 2. Hiatal hernia PLAN: Laparoscopic Sleeve Gastrectomy with possible hiatal hernia repair on 04/2022. This appointment with the patient was spent outlining the risks, benefits and alternatives to laparoscopic weight loss surgery. The advantages and disadvantages of laparoscopic versus open weight loss surgery as well as the need for lifelong follow-up and commitment to vitamin and mineral supplementation throughout life. This explained to the patient that lap scopic weight loss surgery would serve as a tool would be used, in addition to diet and exercise, to aid the patient in losing weight. It was explained to thepatient that the goal following surgery was to lose approximately two thirds of the excess weight 12 months after surgery. If diet and exercise are not adhered to, weight regain is possible. The short-term and long-term complications of the surgery were discussed in detail. This list included but was not limited to conversion to open procedure, anastomotic leak with possible need for subsequent reoperation, gastric dilatation, bleeding, deep venous thrombosis, pulmonary embolus, myocardial infarction, pulmonary complications, need for mechanical ventilation and were discussed. Long-termcomplications including stomal stenosis and ulceration, internal herniation with possible intestinal obstruction, as well as anemia, persistent nausea, hair loss and gallstone formation were discussed as well. We spent >45 minutes in complex detailed discussion regarding the procedure at length,reviewing all labs & studies, and all questions were answered. Anesthesia consulted Consent given to patient at this visit. Risks - including any elevated risks in this individual patient, benefits, and expected outcomes were addressed. Drawings of the procedure were made. I reviewed pre-op work-up, including testing and consultations, as listed above. All questions were answered. Education given on pre-op (up to 2 week diet). Pre-op labs and antibiotics for surgical prophylaxisordered. Patient to notify me if there are any changes in health or ability to comply with behaviormodification in the meantime. Patient voices understanding that RYAN increases the risk of surgery and the potential need for ICU admission. She is to bring CPAP/BiPAP to hospital for use, if prescribed. Patient to contact PCP or prescribing physician regarding medication changes, both, before and after surgery. Also, patient needs to confirm which medications can be crushed versus which need to be changed for the initial 30 days following surgery. If on metformin, needs to hold 2 days prior to surgery. If on hormones, needs to stop one month prior. Postoperative medications discussed: Antacid, stool softener, antiemetic, and pain prescriptions yamilex sent to [facility] pharmacy for patient delivery prior to leaving the hospital. Discussed that is patient is at an elevated risk for DVT/VTE she will additionally be placed on a 2-4 week course of postoperative anticoagulation at discharge, if not already on chronic anticoagulation. Also, discussed the necessity of ambulating the evening after surgery and often post- op to help prevent blood clots. Postoperative restrictions were discussed: No NSAIDs lifelong. No steroids by any method for 4 weeks before and at least 4 weeks after surgery. No MRIs for 6 weeks following surgery. Elias Byrd DO 03/20/2022, 9:02 PM ICAL STUDIES SPECIALIST documented in this encounter Plan of Treatment Not on file documented as of this encounter Visit Diagnoses Diagnosis Morbid obesity with body mass index (BMI) of 40.0 to 49.9- Primary Hypercholesterolemia Pure hypercholesterolemia Low vitamin D level Gastric reflux Esophageal reflux documented in this encounter Care Teams Supervisor Microfilm Duplicating Unit Relationship Specialty [place] [address] [facility] [address] [id number] PCP - General Internal Medicine 04/08/21 documented as of this encounter
--- OUTSIDE RECORDS SUMMARY | 2024-05-29 17:31 | XMS_ITS | Encounter Summary ---
Author Organization [facility] Address [address] Kaplan: Epic Prelude ADT [place] [address] Care Team Providers Care Weight Count Operator Name Role Phone Unavailable Primary Care Provider Unavailabl e Encounter Details Date Type Department Care Team (Latest Contact Info) Description 01/01/2021 Travel Social History Tobacco Use Types Packs/Day [...] have Coronavirus / COVID-19? No / Unsure 01/01/2021 12:51 PM CDT documented as of this encounter Plan of Treatment Not on file documented as of this encounter Visit Diagnoses Not on filedocumented in this encounter
--- OUTSIDE RECORDS SUMMARY | 2024-05-29 17:31 | XMS_ITS | Encounter Summary ---
Author Organization [facility] Address [address] [place] [address] Care Team Providers Care Spooling Supervisor Name Role Phone Jai Guadarrama MD Primary Care Provider +- [phone] Encounter Details Date Type Department Care Team (Late st Contact Info) Description 09/11/2021 Orders Only [facility] - [address] [place] [address] Jerrell Byrd, DO [address] [place] [address] Social History Tobacco Use Types Packs/Day Years [...] suspected to have Coronavirus/COVID-19? No / Unsure 09/11/2021 2:56 PM CDT documented as of this encounter Plan of Treatment Not on file documented as of this encounter Visit Diagnoses Not on filedocumented in this encounter Care Teams Spooling Supervisor Relationship Specialty [place] [address] [place] [address] PCP - General Internal Medicine 04/08/21 documented as of this encounter
--- OUTSIDE RECORDS SUMMARY | 2024-05-29 17:31 | XMS_ITS | Encounter Summary ---
Author Organization [facility] Address [address] [place] [address] Care Team Providers Care Information Technology Program Manager Name Role Phone Jai Guadarrama MD Primary Care Provider +1- [phone] Encounter Details Date Type Department Care Team (Late st Contact Info) Description 09/11/2021 Abstract [facility] Surgical Spec [place] [address] [place] [address] Gris Brown RN Social History Tobacco Use Types Packs/Day [...] have Coronavirus / COVID-19? No / Unsure 08/23/2021 10:07 AM CDT documented as of this encounter Plan of Treatment Not on file documented as of this encounter Visit Diagnoses Not on filedocumented in this encounter Care Teams Information Technology Program Manager Relationship Specialty [place] [address] [place] [phone] PCP - General Internal Medicine 04/08/21 documented as of this encounter
--- OUTSIDE RECORDS SUMMARY | 2024-05-29 17:31 | XMS_ITS | Encounter Summary ---
Author Organization [facility] Address [address] [place] [address] Care Team Providers Care Commercial Real Estate Lender Name Role Phone Jai Guadarrama MD Primary Care Provider +1- [phone] Encounter Details Date Type Department Care Team (Late st Contact Info) Description 03/21/2022 Prep for Surgery [facility]opa[facility] [address] [place] [address] Lorene Christianson, RN Morbid obesity with BMI of 40.0-44.9, adult (Primary Dx) Social History Tobacco Use Types [...] encounter Visit Diagnoses Diagnosis Morbid obesity with BMI of 40.0-44.9, adult- Primary documented in this encounter Care Teams Commercial Real Estate Lender Relationship Specialty [place] [address] [place] [address] PCP - General Internal Medicine 04/08/21 documented as of this encounter
--- OUTSIDE RECORDS SUMMARY | 2024-05-29 17:31 | XMS_ITS | Encounter Summary ---
Author Organization [facility] Address [address] Kaplan: Epic Prelude ADT [place] [address] Care Team Providers Care Fast Food Team Member Name Role Phone Jai Guadarrama MD Primary Care Provider +1- [phone] Encounter Details Date Type Department Care Team (Latest Contact Info) Description 10/08/2021 Travel Social History Tobacco Use Types Packs/Day [...] suspected to have Coronavirus/COVID-19? No / Unsure 10/08/2021 7:20 AM CDT documented as of this encounter Plan of Treatment Not on file documented as of this encounter Visit Diagnoses Not on filedocumented in this encounter Care Teams Fast Food Team Member Relationship Specialty [place] [address] [place] [address] PCP - General Internal Medicine 04/08/21 documented as of this encounter
--- OUTSIDE RECORDS SUMMARY | 2024-05-29 17:31 | XMS_ITS | Encounter Summary ---
Author Organization [facility] Address [address] [place] [address] Care Team Providers Care Used Car Make Ready Worker Name Role Phone Jai Guadarrama MD Primary Care Provider +1- [phone] Encounter Details Date Type Department Care Team (Late st Contact Info) Description 12/18/2021 Abstract [facility] [address] [place] [address] Lorene Christianson, JUANJO Social History Tobacco Use Types Packs/Day Years [...] on filedocumented in this encounter Care Teams Used Car Make Ready Worker Relationship Specialty [place] [address] [place] [phone] PCP - General Internal Medicine 04/08/21 documented as of this encounter
--- OUTSIDE RECORDS SUMMARY | 2024-05-29 17:31 | XMS_ITS | Encounter Summary ---
Author Organization [facility] Address [address] [place] [address] Care Team Providers Care Staff Development Manager Name Role Phone Jai Guadarrama MD Primary Care Provider +1- [phone] Encounter Details Date Type Department Care Team (Late st Contact Info) Description 03/27/2022 Abstract [facility] Surgical Spec [place] [address] [place] [address] Jerrell Byrd, DO [address] [place] [address] Social History Tobacco Use Types Packs/Day [...] on filedocumented in this encounter Care Teams Staff Development Manager Relationship Specialty Start [place] [address] [address] [place] [phone] PCP - General Internal Medicine 04/08/21 documented as of this encounter
--- OUTSIDE RECORDS SUMMARY | 2024-05-29 17:31 | XMS_ITS | Encounter Summary ---
Author Organization [facility] Address [address] [place] [address] Care Team Providers Care Clean Rice Broker Name Role Phone Jai Guadarrama MD Primary Care Provider +1- [phone] Reason for Visit * Auth/Cert Specialty Diagnoses / Procedures Referred By Contact Referred To Contact Perioperative Diagnoses Gastroesophageal reflux disease without esophagitis Procedures FL ESOPHAGOGASTRODUODENOSCOPY TRANSORAL DIAGNOSTIC ESOPHAGOGASTRODUODENOSCOPY [facility] [address] [place] [address] Referral ID Status Reason Start Date Expiration Date Visits Re quested Visits Authorized [id number] 1 1 Encounter Details Date Type Department Care Team (Late st Contact Info) Description 10/11/2021 9:15 AM CDT Anesthesia Event [facility] GI [facility] [address] [place] [address] Catalino Spencer MD [address] [place] [address] Anesthesia Record Procedure Summary Procedure Name Responsible Anesthesiologist Anesthesia Start Time Anesthesia Stop Time ESOPHAGOGASTRODUODENOSCOPY (Mouth) Catalino Spencer MD 10/11/21 0915 10/11/21 0931 Events Date Time Event Comment 10/11/2021 0911 AN Equip Check Anesthesia eq uipment and materials checked in accordance with local policy. 911 0915 In Room This event disp lays the In Room time documented in the Surgical Log. Deleting this event will not remove it from the log but will remove it from the Grid and Graph timeline. 0915 An Start 0915 An Start Data 0917 Pre-Induction Immediate pre- induction anesthetic assessment performed. Vital signs as noted on graphic. 0918 An Induction 0919 Anesthesia Ready 0920 Procedure Start This event d isplays the Procedure Start time documented in the Surgical Log. Deleting this event will not remove it from the log but will remove it from the Grid and Graph timeline. 09 Procedure Stop This event di splays the Procedure Stop time documented in the Surgical Log. Deleting this event will not remove it from the log but will remove it from the Grid and Graph timeline. 09 an stop data 0926 Out of Room This event disp lays the Out of Room time documented in the Surgical Log. Deleting this event will not remove it from the log but will remove it from the Grid and Graph timeline. 0931 An Stop 0931 Hand-off to Receiving Clinic beth Post-Anesthetic transfer of care report elements to appropriate post-anesthesia recovery environment completed in accordance with procedure. Patient awake, oriented, denies pain and nausea, breathing spont., and VSS. Report given to COLLEGE SCOUTING COORDINATOR including meds, procedure info, and pt. Hx. Meds Name Total lidocaine (XYLOCAINE) 2% injection 100 m g propofol (DIPRIVAN) 10??mg/mL injection 200 mg lactated ringers infusion 300 mL * Agents Name O2 Inspired O2 N2O Inspired N2O O2 * Blood No blood administrations on file. Lines, Drains, and Airways Type Details Placement Removal Peripheral IV Orientation: Left, Posterior; Location: Hand; Gauge: 20 gauge; Needle Length: 1/2 in length; Insertion Attempts: 1; Patient Tolerance: tolerated well 10/11/21 0908 by Za Orozco RN 10/11/21 0935 by Marion Vazquez, JUANJO Supraglottic Airway Type: nasal cannula; Confirmation: end tidal CO2, satisfactory chest rise 10/11/21 0911 by Chandan Crisostomo AA-C 10/11/21 0935 by Marion Vazquez, JUANJO documented in this encounter Social History Tobacco [...] AM CDT documented as of this encounter OR Notes * Anesthesia Postprocedure Evaluation - Chandan Crisostomo AA-C - 10/11/2021 9:33 AM CDT k Post Anesthesia Evaluation Vitals: Vitals Value Taken Time BP 98/60 10/11/2128 Temp 36.2 ??C 10/11/21927 Resp 18 10/11/21927 SpO2 Pulse 99 10/11/21927 Heart Rate Pain Rating: Anesthesia Post Evaluation Patient location during evaluation: PACU Patient participation: patient was able to participate in the post op evaluation Level of consciousness: 0 = alert, responsive, answers simple questions appropriately, able to perform simple tasks Pain management: adequate Airway patency: patent Nausea or Vomiting: none Cardiovascular status: regular rate and rhythm Respiratory status: no respiratory symptoms Hydration status: well hydrated No complications documented. MIKE Hurtado * Anesthesia Handoff - Chandan Crisostomo AA-C - 10/11/2021 9:31 AM CDT Post-Anesthetic transfer of care report elements to [...] and acknowledgement of understanding. Vital Signs: BP: 98/60 (10/11/2021 9:28 AM) Pulse: 99 (10/11/2021 9:28 AM) Temp: 36.2 ??C (10/11/2021 9:28 AM) Resp: 18 (10/11/2021 9:28 AM) SpO2: 97 % (10/11/2021 9:08 AM) 9:31 AM MIKE Hurtado * Anesthesia Preprocedure Evaluation - Catalino Spencer MD - 10/10/2021 5:40 PM CDT Relevant Problems No relevant active problems Anesthesia Evaluation Airway Mallampati: II TM distance: >3 FB Neck ROM: full Dental Comment: Denies loose or removable dentition Pulmonary (-) COPD, asthma, sleep apnea ROS comment: Former smoker, quit 2017 Cardiovascular Exercise tolerance: good (-) hypertension, past AR, dysrhythmias, CHF Neuro/Psych (+) headaches, psychiatric history (anxiety) (-) seizures, CVA GI/Hepatic/Renal (+) GERD (denies), (-) liver disease, renal disease Endo/Other (-) diabetes mellitus, hypothyroidism Abdominal (+) obese, Anesthesia History No history of anesthetic complications. Anesthesia Plan ASA Final: 3 MAC NPO status: >2 hours for liquids, >8 hours for solids. Anesthetic plan and risks discussed with Patient. Smoking Compliance Patient did not smoke on day of surgery documented in this encounter Plan of Treatment Not on file documented as of this encounter Visit Diagnoses Not on filedocumented in this encounter Administered Medications Inactive Administered Medications - up to 3 most recent administrations Medication Order MAR Action Action Date Dose Rate Site lactated ringers infusion IV, at 125 mL/hr, PRE-PROCEDURE CONTINUOUS, Starting on Thu10/11/21 at 0915, Until Thu10/11/21 at 1158, Routine, Pre-Procedure Continue from Pre-Op 10/11/2021 9:15 AM CDT 125 mL/hr New Bag 10/11/2021 9:09 AM CDT 125 mL/hr lidocaine 2 % (XYLOCAINE) injection IV, INTRA-PROCEDURE PRN, Starting on Thu10/11/21 at 0918, Until Thu10/11/21 at 0931, Routine, Anesthesia Intra-op Given 10/11/2021 9:18 AM CDT 100 mg propofoL (DIPRIVAN) injection IV, INTRA-PROCEDURE PRN, Starting on Thu10/11/21 at 0918, Until Thu10/11/21 at 0931, Anesthesia Intra-op Given 10/11/2021 9:21 AM CDT 50 mg Given 10/11/2021 9:19 AM CDT 50 mg Given 10/11/2021 9:18 AM CDT 100 mg documented in this encounter Care Teams Clean Rice Broker Relationship Specialty [place] [address] [facility] [address] [place] [phone] PCP - General Internal Medicine 04/08/21 documented as of this encounter
--- OUTSIDE RECORDS SUMMARY | 2024-05-29 17:31 | XMS_ITS | Encounter Summary ---
Author Organization [facility] Address [address] [place] [address] Care Team Providers Care Weaving Supervisor Name Role Phone Jai Guadarrama MD Primary Care Provider +1- [phone] Reason for Visit * Reason Comments Procedure Encounter Details Date Type Department Care Team (Latest Contact Info) Description 08/23/2021 10:15 AM CDT Procedure visit [facility] [id number] [phone] Cole Stewart MD [address] [facility] [address] [place] [address] Skin lesion of left lower extremity (Primary Dx) Social History Tobacco Use Types Packs/Day Years Used Date Smoking Tobacco: Never Smokeless Tobacco: Never Alcohol Use Standard Drinks/Week [...] as of this encounter Progress Notes * Cole Stewart MD - 08/23/2021 10:48 AM CDT [place], [place] [address] Operative Report CSN: [id number] DATE OF SERVICE: 08/23/2021 SURGEON Cole Stewart MD Pre op Left calf lesion enlarging POSTOPERATIVE DIAGNOSIS same OPERATION NAME 1. Excisional biopsy left calf skin lesion 0.4cm 2. layered wound closure left calf 1.4cm ANESTHESIA Local. COMPLICATION None. CONDITION Stable. INDICATIONS Enlarging lesion that required biopsy. It was a freely mobile lesion involved the skin and dx as a possible skin cancer vs benign lesion. They understood the risks of the procedure, bleeding, infection, scarring, need for further revision surgeries, as well as anesthetic risks associated with surgery. Specifically we discussed the unknown nature of scarring and need for revision surgery. The patient understood these and wished to proceed and informed consent obtained. OPERATIVE NOTE IN DETAIL The area was prepped and draped in normal sterile fashion. We performed a time- out. A dilute epinephrine lidocaine solution was injected into the area to obtain hemostasis and provide anesthesia. A incision was made with 1mm margins around the lesion and it was carefully taken off to the subcutaneous tissue and was removed and sent off the table for pathology. At that point, hemostasis was achieved.I then closed the incision in layers with 4-0 monocryl and 4-0 surgipro to complete the closure. Postoperative dressing was applied. The patient tolerated the procedure well. There were no complications. Instrument, sponge, and needle counts were correct. documented in this encounter Miscellaneous Notes * Addendum Note - Paula Yadav RN - 08/23/2021 11:25 AM CDTAddended by: PAULA YADAV on: 08/23/2021 11:25 AM Modules accepted: Orders documented in this encounter Plan of Treatment Not on file documented as of this encounter Procedures Procedure Name Priority Date/Time Associated Diagnosis Comments PATHOLOGY Routine 08/23/2021 11:24 AM CDT Skin lesion of left lower extremity documented in this encounter Results * PATHOLOGY (08/23/2021 11:24 AM CDT) CASE REPORT Surgical Pathology Report ? Case: [id number] ? Authorizing Provider: ??Cole Stewart MD ?Collected: ? 08/23/2021 11:24 AM ? Ordering Location: ? [facility] [address] ?Received: ?08/23/2021 01:55 PM ? [id number] ? Pathologist: ? Jerrell Crawford MD ? Specimen: ?Calf, left, left calf lesion ? 2 1:05 PM CDT [facility] FINAL DIAGNOSIS Skin, left calf, excision: - Dermatofibroma. - Margins negative. 2 1:05 PM CDT [facility] S DESCRIPTION Received in one container labeled Renata Lei and left calf is a 1.7 x 0.9 cm unoriented ellipse of valdivia[place]langston skin excised to a depth of 0.5 cm. A distinct lesion is not seen on the skin surface. The margin is inked blue. The tissue is serially sectioned and entirely submitted as follows: A1-tips, A2-central sections. [facility] 2 1:05 PM [facility] MICROSCOPIC DESCRIPTION The slides are labeled [id number] and Renata Lei. The left calf excision shows a storiform proliferation of fibrohistiocytic cells amongst thickened collagen bundles in the dermis. There is overlying epidermal induction and peripheral collagen trapping. The lesion is not present at the margins of the specimen. 2 1:05 PM [facility] OPERATIVE PROCEDURE excision of left calf lesion 2 1:05 PM [facility] CLINICAL INFORMATION L98.9 - Skin lesion of left lower extremity [ICD-10-CM] 2 1:05 PM [facility] COMMENT Special stain, immunohistochemical, and/or in situ hybridization results are interpreted with controls that demonstrate appropriate staining reactions. Note on use of immunohistochemistry reagents and in situ hybridization probes: These tests were developed and their performance characteristics determined by [facility], Department of Laboratory Medicine. It has not [...] part or completely in the following laboratories: [facility], CLIA #[id number] [address] [place] [address] [facility], [place] #[id number] [address] [place] [address] [facility], [place] #[id number] [address] [place] [address] This report was created with the [employer] voice-activated dictation system. Inherent to this system is the possibility of syntax, grammar, punctuation and other errors that could impact the interpretation of the report. If there are interpretative questions about aspects of this report, please contact the performing pathologist. 1:05 PM CDT [facility] Tissue (Calf, left) Collection / Unknown 08/23/2021 11:24 AM CDT 08/23/2021 1:55 PM CDT Cole Stewart MD PATHOLOGY/CYTOLOGY [facility] [id number] [address] [place] [address] documented in this encounter Visit Diagnoses Diagnosis Skin lesion of left lower extremity- Primary documented in this encounter Care Teams Weaving Supervisor Relationship Specialty [place] [address] [place] [phone] PCP - General Internal Medicine 04/08/21 documented as of this encounter
--- OUTSIDE RECORDS SUMMARY | 2024-05-29 17:31 | XMS_ITS | Encounter Summary ---
Author Organization [facility] Address [address] [place] [address] Care Team Providers Care Machine Made Shoe Unit Worker Name Role Phone Jai Guadarrama MD Primary Care Provider +1- [phone] Encounter Details Date Type Department Care Team (Latest Contact Info) Description 01/22/2022 4:40 PM CDT - 01/22/2022 11:59 PM CDT Hospital Encounter [facility] Pre Procedure Viral Testing [facility] [address] [place] [phone] [place] [address] [facility] [address] [place] [address] Discharge Disposition: Home or Self Care Social [...] was confirmed or suspected to have Coronavirus/COVID-19? Unable to assess 01/22/2022 4:39 PM CDT documented as of this encounter Medications at Time of Discharge Medication Sig Dispensed Refills Start Date End Date nortriptyline (PAMELOR) 25 mg capsule Take 1 Capsule (25 mg) by mouth daily. 90 Capsule 3 06/24/2021 escitalopram oxalate (LEXAPRO) 10 mg tablet Take 10 mg by mouth daily. 12/19/2019 topiramate (Topamax) 200 mg tablet Take 1 Tablet (200 mg) by mouth daily. 90 Tablet 3 04/08/2021 scopolamine (Transderm-Scop) 1 mg/72 hr patch Apply [...] 06/24/2021 03/16/2023 documented as of this encounter Plan of Treatment Not on file documented as of this encounter Visit Diagnoses Not on filedocumented in this encounter Additional Health Concerns Infection Onset Date Last Indicated Resolved Time R/O COVID-19 01/22/2022 01/22/2022 01/22/2022 11:3 7 PM CDT COVID-19 01/22/2022 01/22/2022 02/21/2022 1:16 AM CDT documented as of this encounter Care Teams Machine Made Shoe Unit Worker Relationship Specialty Start [place] [address] [facility] [address] [place] [phone] PCP - General Internal Medicine 04/08/21 documented as of this encounter
--- OUTSIDE RECORDS SUMMARY | 2024-05-29 17:31 | XMS_ITS | Encounter Summary ---
Author Organization [facility] Address [address] [place] [address] Care Team Providers Care Human Factors Engineer Name Role Phone Jai Guadarrama MD Primary Care Provider +1- [phone] Reason for Visit * Reason Comments Physical Encounter Details Date Type Department Care Team (Late st Contact Info) Description 07/23/2021 3:00 PM CERTIFIED MEDICAL TECHNICIAN Office Visit [facility] Internal Medicine Angelica Jimenez [address] [place] [address] [place] [address] [place] [address] Encounter for routine adult health examination without abnormal findings (Primary Dx); History of migraine headaches; Anxiety state; Morbid obesity with body mass index (BMI) of 40.0 or higher Social History Tobacco Use Types Packs/Day Years [...] have Coronavirus / COVID-19? No / Unsure 07/23/2021 2:37 PM CERTIFIED MEDICAL TECHNICIAN documented as of this encounter Last Filed Vital Signs Vital Sign Reading Time Taken Comments Blood Pressure 122/80 07/23/2021 2:45 PM CERTIFIED MEDICAL TECHNICIAN Pulse 100 07/23/2021 2:45 PM CERTIFIED MEDICAL TECHNICIAN Temperature 36.6 ??C (97.8 ??F) 07/23/2021 2:45 PM CS T Respiratory Rate 16 07/23/2021 2:45 PM CERTIFIED MEDICAL TECHNICIAN Oxygen Saturation 98% 07/23/2021 2:45 PM CERTIFIED MEDICAL TECHNICIAN Inhaled Oxygen Concentration - - Weight 119.7 kg (264 lb) 07/23/2021 2:45 PM CERTIFIED MEDICAL TECHNICIAN Height 162.6 cm (5' 4 ) 07/23/2021 2:45 PM CERTIFIED MEDICAL TECHNICIAN Body Mass Index 45.32 07/23/2021 2:45 PM CERTIFIED MEDICAL TECHNICIAN documented in this encounter Progress Notes * Jai Guadarrama MD - 07/23/2021 2:53 PM CST Renata Lei is here for Physical Since video visit in March, no new issues or concerns. Asymptomatic at present. BMI 45.32. Referral had been placed to see Dr. Byrd, as she has been exploring the idea of bariatric surgery. Says she plans on making an appointment. History of migraines - on Topamax + nortriptyline. 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 History of anxiety - on escitalopram + prn alprazolam. ??? Last colonoscopy: 2018 at [facility] for rectal bleeding - negative ??? Last mammogram: ordered on 04/08/2021 - pending ??? Last Dexa bone density: n/a ??? Covid-19 vaccination: 07/27/2020, 08/16/2020 ([employer]) Past Medical History: Diagnosis Date ??? Anxiety ??? Migraine headache ??? Morbid obesity No past surgical history on file. No family history on file. Social History Tobacco Use ??? Smoking status: Never Smoker ??? Smokeless tobacco: Never Used Substance Use Topics ??? Alcohol use: Yes Comment: occas Immunization History Administered Date(s) Administered ??? ([employer]) (12 YR UP) COVID-19 VACCINE - EMERGENCY USE AUTHORIZATION, MRNA,NTP325W0(PF) 30 MCG/0.3 ML IM SUSP 07/27/2020, 08/16/2020 ??? Influenza Vaccine 06/10/2020, 03/05/2021 Current Outpatient Medications: ??? nortriptyline (PAMELOR) 25 mg capsule, Take [...] mouth daily., Disp: 90 Tablet, Rfl: 3 ??? atovaquone-proguaniL (Malarone) 250-100 mg Tablet, Take 1 Tablet by mouth daily // beginning 2 days prior to visit, during visit, and for 7 days after return (Patient not taking: Reported on 07/23/2021), Disp: 20 Tablet, Rfl: 0 Review of Systems Constitutional: Negative. HENT: Negative. Respiratory: Negative. Cardiovascular: Negative. Gastrointestinal: Negative. Genitourinary: Negative. Musculoskeletal: Negative. Skin: Negative. Neurological: Negative. All other systems reviewed and are negative. Vitals With Comments 07/23/2021 1445 04/08/2021 1524 BP: 122/80 -- Pulse: 100 -- Resp: 16 -- Temp: 97.8 ??F (36.6 ??C) -- Temp src: Temporal -- SpO2: 98 % -- Weight: 119.7 kg (264 lb) 117.9 kg (260 lb) Height: 5' 4 (1.626 m) 5' 4 (1.626 m) PHYSICAL EXAM: General: alert, oriented, no distress. BMI 45.32 Skin: normal without rashes, lesions Eyes: pupils reactive Ears: clear Nose: normal Pharynx: normal Neck: no adenopathy, thyromegaly Lungs: clear without wheezes, rales, rhonchi Cor: regular without murmurs, gallops, rubs Abdomen: soft non-tender; no masses, guarding, rebound. BS active Extremities: normal ROM; no edema Neuro: non-focal ASSESSMENT AND PLAN: ICD-10-CM ICD-9-CM 1. Encounter for routine adult health examination without abnormal findings Z00.00 V70.0 Labs ordered on 04/08/2021 haven't been drawn yet 2. History of migraine headaches Z86.69 V12.49 Continue nortriptyline + topiramate + Botox 3. Anxiety state F41.1 300.00 Continue escitalopram + prn alprazolam 4. Morbid obesity with body mass index (BMI) of 40.0 or higher E66.01 278.01 Open referral to see Dr. Byrd No orders of the defined types were placed in this encounter. Return in about 1 year (around 07/23/2022) for annual physical or as needed. IFIED MEDICAL TECHNICIAN documented in this encounter Plan of Treatment Not on file documented as of this encounter Visit Diagnoses Diagnosis Encounter for routine adult health examination without abnormal findings- Primary History of migraine headaches Personal history of other disorders of nervous system and sense organs Anxiety state Anxiety state, unspecified Morbid obesity with body mass index (BMI) of 40.0 or higher documented in this encounter Care Teams Human Factors Engineer Relationship Specialty [place] [address] [facility] [address] [place] [phone] PCP - General Internal Medicine 04/08/21 documented as of this encounter
--- OUTSIDE RECORDS SUMMARY | 2024-05-29 17:31 | XMS_ITS | Encounter Summary ---
Author Organization [facility] Address [address] Kaplan: Epic Prelude ADT [place] [address] Care Team Providers Care Rn Integrated Name Role Phone Jai Guadarrama MD Primary Care Provider +1- [phone] Encounter Details Date Type Department Care Team (Latest Contact Info) Description 04/08/2021 Travel Social History Tobacco Use Types Packs/Day [...] or suspected to have Coronavirus / COVID-19? Unable to assess 04/08/2021 3:18 PM WELDING PANTOGRAPH MACHINE OPERATOR documented as of this encounter Plan of Treatment Not on file documented as of this encounter Visit Diagnoses Not on filedocumented in this encounter Care Teams Rn Integrated Relationship Specialty Start [place] [address] [place] [phone] PCP - General Internal Medicine 04/08/21 documented as of this encounter
--- OUTSIDE RECORDS SUMMARY | 2024-05-29 17:31 | XMS_ITS | Encounter Summary ---
Author Organization [facility] Address [address] [place] [address] Care Team Providers Care Cultural Historian Name Role Phone Unavailable Primary Care Provider Unavailabl e Encounter Details Date Type Department Care Team (Latest Contact Info) Description 06/11/2020 3:56 PM HEMATOLOGY NURSE - 06/11/2020 11:59 PM HEMATOLOGY NURSE Hospital Encounter [facility] [address] [facility] [address] [place] [phone] [place] [address] [facility] [address] [place] [address] Discharge Disposition: Home or Self Care Social History Tobacco Use Types Packs/Day Years Used Date Smoking Tobacco: Never Assessed Sex and Gender Information Value Date Recorded Sex Assigned at Not on file Gender Identity Not on file Sexual Orientation Not on file documented as of this encounter Medications at Time of Discharge Medication Sig Dispensed Refills Start Date End Date escitalopram oxalate (LEXAPRO) 10 mg tablet Take 10 mg by mouth daily. 12/19/2019 ALPRAZolam (XANAX) 0.25 mg tablet Take 0.25 mg by mouth 3 times daily as needed. 12/20/2019 06/24/2021 topiramate (Topamax) 200 mg tablet Take 200 mg by mouth daily. 02/18/2016 04/08/2021 nortriptyline (PAMELOR) 25 mg capsule Take 25 mg by mouth. 04/28/20182021 documented as of this encounter Plan of Treatment Not on file documented as of this encounter Procedures Procedure Name Priority Date/Time Associated Diagnosis Comments HEPATITIS B SURFACE AB, QUANT Routine 06/11/2020 11:00 AM HEMATOLOGY NURSE Routine general medical examination at a health care facility RUBEOLA IGG Routine 06/11/2020 11:00 AM HEMATOLOGY NURSE Routine general medical examination at a health care facility RUBELLA IGG Routine 06/11/2020 11:00 AM HEMATOLOGY NURSE Routine general medical examination at a health care facility VARICELLA ZOSTER IGG Routine 06/11/2020 11:00 AM HEMATOLOGY NURSE Routine general medical examination at a health care facility MUMPS IGG ANTIBODY Routine 06/11/2020 11 :00 AM HEMATOLOGY NURSE Routine general medical examination at a health care facility documented in this encounter Results * VARICELLA ZOSTER IGG (06/11/2020 11:00 AM HEMATOLOGY NURSE) VARICELLA ZOSTER IGG Immune - Positive Immune - Positive 06/12/2020 3:27 PM HEMATOLOGY NURSE [facility] VARICELLA IGG INDEX 292.3 06/12/2020 3:27 PM HEMATOLOGY NURSE [facility] Comment: Nonimmune - Negative ?<135.0 AI Equivocal ?135.0 - 164.9 AI ? Immune - Positive ? >164.9 AI Blood Collection / Unknown 06/11/2020 11:00 AM HEMATOLOGY NURSE 06/11/2020 4:19 PM HEMATOLOGY NURSE Narrative [facility] - 06/12/2020 3:27 PM HEMATOLOGY NURSE A positive result suggests response to immunization or prior exposure to the virus. REFERENCE LAB ACC #: [id number] Robert Pedersen MD CHEMISTRY ORDERABLES [facility] CLIA # [id number] [address] [place] [address] [facility] [address] [place] [address] * RUBEOLA IGG (06/11/2020 11:00 AM HEMATOLOGY NURSE) RUBEOLA IGG Immune - Positive Immune - Positive 06/12/2020 3:27 PM HEMATOLOGY NURSE [facility] RUBEOLA IGG INDEX 60.8 06/12/2020 3:27 PM HEMATOLOGY NURSE [facility] Comment: Nonimmune - Negative ?<13.5 AI Equivocal ?13.5 - 16.4 AI ? Immune - Positive ? >16.4 AI Blood Collection / Unknown 06/11/2020 11:00 AM HEMATOLOGY NURSE 06/11/2020 4:19 PM HEMATOLOGY NURSE Narrative [facility] - 06/12/2020 3:27 PM HEMATOLOGY NURSE A positive result suggests response to immunization or prior exposure to the virus. REFERENCE LAB ACC #: [id number] Robert Pedersen MD CHEMISTRY ORDERABLES [facility] CLIA # [id number] [address] [place] [address] [facility] [address] [place] [address] * MUMPS IGG ANTIBODY (06/11/2020 11:00 AM HEMATOLOGY NURSE) MUMPS IGG AB Immune - Positive Immune - Positive 06/12/2020 3:30 PM HEMATOLOGY NURSE [facility] MUMPS IGG INDEX 56.5 06/12/2020 3:30 PM HEMATOLOGY NURSE [facility] Comment: Nonimmune - Negative ?<9.0 AI Equivocal ? 9.0 - 10.9 AI ? Immune - Positive ?>10.9 AI Blood Collection / Unknown 06/11/2020 11:00 AM HEMATOLOGY NURSE 06/11/2020 4:19 PM HEMATOLOGY NURSE Narrative [facility] - 06/12/2020 3:30 PM HEMATOLOGY NURSE A positive result suggests response to immunization or prior exposure to the virus. REFERENCE LAB ACC #: [id number] Robert Pedersen MD CHEMISTRY ORDERABLES Performing Organization Address [facility] Co de Phone Number [facility] CLIA # [id number] [address] [place] [address] [address] * RUBELLA IGG (06/11/2020 11:00 AM HEMATOLOGY NURSE) Pathologist [facility] RUBELLA IGG IMMUNE Immune - Positive 06/11/2020 7:[address] [facility] Blood Collection / Unknown 06/11/2020 11:00 AM HEMATOLOGY NURSE 06/11/2020 4:19 PM HEMATOLOGY NURSE Narrative [facility] - 06/11/2020 7:31 PM HEMATOLOGY NURSE A positive result suggests response to immunization or prior exposure to the virus. Robert Pedersen MD CHEMISTRY ORDERABLES Performing Organization Address [facility]/ZIP Co de Phone Number [facility] CLIA# [id number] [address] [employer] [facility] [place] [address] * (ABNORMAL) HEPATITIS B SURFACE AB, QUANT (06/11/2020 11:00 AM HEMATOLOGY NURSE) Pathologist [facility] HEPATITIS B SURF AB,QN <4.0 mlU/mL 06/11/2020 5:[address] [facility] HEPATITIS B SURFACE AB INTERP Non-reacti ve(A) See Interp 06/11/2020 5:54 PM [facility] Blood Collection / Unknown 06/11/2020 11:00 AM HEMATOLOGY NURSE 06/11/2020 4:19 PM HEMATOLOGY NURSE Narrative [facility] - 06/11/2020 5:54 PM HEMATOLOGY NURSE Patient does not have immunity to Hepatitis B virus. ??This assay is used to determine immune status to Hepatitis B as greater than or equal to 10 mIU/mL as per CDC guidelines (MMWR:vol 55: RR-16, 2006). Robert Pedersen MD CHEMISTRY ORDERABLES [facility]# [id number] [address] [place] [address] documented in this encounter Visit Diagnoses Diagnosis Routine general medical examination at a health care facility- Primary documented in this encounter
--- OUTSIDE RECORDS SUMMARY | 2024-05-29 17:31 | XMS_ITS | Encounter Summary ---
Author Organization [facility] Address [address] [place]: Epic Prelude [place] [address] Care Team Providers Care Weaver Needle Loom Name Role Phone Jai Guadarrama MD Primary Care Provider +1- [phone] Encounter Details Date Type Department Care Team (Latest Contact Info) Description 07/23/2021 Travel Social History Tobacco Use Types Packs/Day [...] COVID-19? No / Unsure 07/23/2021 2:37 PM BLIND LACER documented as of this encounter Plan of Treatment Not on file documented as of this encounter Visit Diagnoses Not on filedocumented in this encounter Care Teams Weaver Needle Loom Relationship Specialty [place] [address] [place] [address] PCP - General Internal Medicine 04/08/21 documented as of this encounter
--- OUTSIDE RECORDS SUMMARY | 2024-05-29 17:31 | XMS_ITS | Encounter Summary ---
Author Organization [facility] Address [address] [place] [address] Care Team Providers Care Efficiency Miner Blasting Name Role Phone Jai Guadarrama MD Primary Care Provider +1- [phone] Encounter Details Date Type Department Care Team (Late st Contact Info) Description 05/06/2021 Orders Only [facility] Internal Medicine [place] [address] [place] [address] [place] [address] [place] [address] Need for malaria prophylaxis (Primary Dx) Social History Tobacco Use Types [...] COVID-19? Unable to assess 04/08/2021 3:18 PM KNURLING MACHINE TENDER documented as of this encounter Progress Notes * Jai Guadarrama MD - 05/06/2021 9:34 AM CST Traveling to [place] for 10 days - requesting Malarone for malaria prophylaxis Prescription for Malarone 250/100 daily sent to pharmacy LING MACHINE TENDER documented in this encounter Plan of Treatment Not on file documented as of this encounter Visit Diagnoses Diagnosis Need for malaria prophylaxis- Primary documented in this encounter Care Teams Efficiency Miner Blasting Relationship Specialty [place] [address] [facility] [address] [place] [id number] PCP - General Internal Medicine 04/08/21 documented as of this encounter
--- OUTSIDE RECORDS SUMMARY | 2024-05-29 17:31 | XMS_ITS | Encounter Summary ---
Author Organization [facility] Address [address] [place] [address] Care Team Providers Care Mixer Operator Vacuum Pan Salt Name Role Phone Jai Guadarrama MD Primary Care Provider +1- [phone] Reason for Visit * Reason Comments Carpal Tunnel Encounter Details Date Type Department Care Team (Late st Contact Info) Description 04/21/2022 2:00 PM MINER ASSISTANT Office Visit [facility] [address] [place] [address] Santana Lake MD [address] [place] [address] Carpal tunnel syndrome of right wrist (Primary Dx); Carpal tunnel syndrome of left wrist Social [...] Coronavirus/COVID-19? No / Unsure 04/08/2022 12:14 PM MINER ASSISTANT documented as of this encounter Last Filed Vital Signs Vital Sign Reading Time Taken Comments Blood Pressure 125/87 04/21/2022 1:51 PM MINER ASSISTANT Pulse - - Temperature - - Respiratory Rate - - Oxygen Saturation - - Inhaled Oxygen Concentration - - Weight 115.5 kg (254 lb 9.6 oz) 04/21/2022 1:51 PM MINER ASSISTANT Height 162.6 cm (5' 4 ) 04/21/2022 1:51 PM MINER ASSISTANT Body Mass Index 43.7 04/21/2022 1:51 PM MINER ASSISTANT documented in this encounter Progress Notes * Santana Lake MD - 04/21/2022 1:53 PM CST [facility]: CC: Right Carpal Tunnel Syndrome Who referred you to Dr. 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 OBJECTIVE: Physical Exam: BP 125/87 Ht 5' 4 (1.626 m) Wt 115.5 kg (254 lb 9.6 oz) BMI 43.70 kg/m?? General appearance: alert, well appearing, and [...] grams detected Left Small: 0.07 grams detected X-ray: not indicated. Other studies: EMG EMG/Nerve Conduction Studies:were positive [...] Santana Lake M.D. Hand and Plastic Surgeon [facility] R ASSISTANT documented in this encounter Plan of Treatment Not on file documented as of this encounter Visit Diagnoses Diagnosis Carpal tunnel syndrome of right wrist- Primary Carpal tunnel syndrome Carpal tunnel syndrome of left wrist Carpal tunnel syndrome documented in this encounter Care Teams Mixer Operator Vacuum Pan Salt Relationship Specialty Start [place] [address] [facility] [address] [place] [id number] PCP - General Internal Medicine 04/08/21 documented as of this encounter
--- OUTSIDE RECORDS SUMMARY | 2024-05-29 17:31 | XMS_ITS | Encounter Summary ---
Author Organization [facility] Address [address] [place] [address] Care Team Providers Care Marketing Segment Manager Name Role Phone Jai Guadarrama MD Primary Care Provider +- [phone] Reason for Referral * Eval and Treat (Routine) - Closed Specialty Diagnoses / Procedures Referred By Contomega t Referred To Contact Surgery / General Surgery Diagnoses Morbid obesity with body mass index (BMI) of 40.0 [place] [address] [place] [address] Jerrell Byrd, DO [address] [facility] [address] [place] [address] Referral ID Status Reason Start Date Expiration Date Visits Re quested Visits Authorized [id number] Closed 04/08/2021 04/08/2022 1 1 MIC ARTIST Reason for Visit * Reason Comments Establish Care Needs refill on topa max and would like to discuss weight loss. Encounter Details Date Type Department Care Team (Late st Contact Info) Description 04/08/2021 3:30 PM CERAMIC ARTIST Video Visit [facility] Internal Medicine Angelica Jimenez [address] [place] [phone] [place] [address] [place] [phone] Morbid obesity with body mass index (BMI) of 40.0 or higher (Primary Dx); Anxiety state; Migraine without aura and without status migrainosus, not intractable; Encounter to establish care with new doctor; Screening for lipoid disorders; Screening for thyroid disorder; Encounter for vitamin deficiency screening; Breast cancer screening by mammogram Social History Tobacco Use Types Packs/Day Years [...] COVID-19? Unable to assess 04/08/2021 3:18 PM CERAMIC ARTIST documented as of this encounter Last Filed Vital Signs Vital Sign Reading Time Taken Comments Blood Pressure - - Pulse - - Temperature - - Respiratory Rate - - Oxygen Saturation - - Inhaled Oxygen Concentration - - Weight 117.9 kg (260 lb) 04/08/2021 3:24 PM CERAMIC ARTIST Height 162.6 cm (5' 4 ) 04/08/2021 3:24 PM CERAMIC ARTIST Body Mass Index 44.63 04/08/2021 3:24 PM CERAMIC ARTIST documented in this encounter Progress Notes * Jai Guadarrama MD - 04/08/2021 3:24 PM CST Images from the original note were not included. This encounter was completed via two-way synchronous audio and video communication. Patient expressed understanding that using technology outside of [facility] has higher potential tointroduce privacy risks: Yes Patient's identity confirmed yes Patient gave verbal consent to have these services billed to their insurance and expressed understanding that co-insurance and deductible may apply: yes Renata Lei is here for Establish Care (Needs refill on topamax and would like to discuss weight loss. ) Very pleasant 41 WF here via video visit to establish care. Has history of migraine headaches - controlled well with topamax (requests refill) and nortriptyline. History of anxiety - controlled on escitalopram and prn xanax. Main issue is her weight. States that after she had her first child, she gained 90 lbs, and her weight has been an issue ever since. Previous PCP had placed her on phentermine 25 mg daily, during which she lost 25 lbs in a 3 month period before said PCP told her it wasn't working, and stopped. She has seen a dietitian in the past, watched what she eats, yet has been unsuccessful in losing weight.Lab work in the past to rule out any metabolic cause has been unrevealing. Has explored the possibility of bariatric surgery. Past Medical History: Diagnosis Date ??? Anxiety ??? Migraine headache ??? Morbid obesity No past surgical history on file. No family history on file. Social History Tobacco Use ??? Smoking status: Never Smoker ??? Smokeless tobacco: Never Used Substance Use Topics ??? Alcohol use: Yes Comment: occas ??? Drug use: Not on file Immunization History Administered Date(s) Administered ??? ([employer]) (12 YR UP) COVID-19 VACCINE - EMERGENCY USE AUTHORIZATION, MRNA,[id number](PF) 30 MCG/0.3 ML IM SUSP 07/27/2020, 08/16/2020 Current Outpatient Medications: ??? escitalopram oxalate (LEXAPRO) 10 mg tablet, Take 10 mg by mouth daily., Disp: , Rfl: ??? ALPRAZolam (XANAX) 0.25 mg tablet, Take 0.25 mg by mouth 3 times daily as needed., Disp: , Rfl: ??? topiramate (Topamax) 200 mg tablet, Take 1 Tablet (200 mg) by mouth daily., Disp: 90 Tablet, Rfl: 3 ??? cetirizine (ZyrTEC) 10 mg tablet, Take 10 mg by mouth daily., Disp: , Rfl: ??? nortriptyline (PAMELOR) 25 mg capsule, Take 25 mg by mouth., Disp: , Rfl: Review of Systems Constitutional: Negative. HENT: Negative. Respiratory: Negative. Cardiovascular: Negative. Gastrointestinal: Negative. Genitourinary: Negative. Musculoskeletal: Negative. Skin: Negative. Neurological: Negative. All other systems reviewed and are negative. Vitals With Comments 04/08/2021 1524 12/11/2020 0913 BP: -- 122/92 Weight: 117.9 kg (260 lb) 113.4 kg (250 lb) Height: 5' 4 (1.626 m) 5' 4 (1.626 m) ASSESSMENT AND PLAN: ICD-10-CM ICD-9-CM 1. Morbid obesity with body mass index (BMI) of 40.0 or higher E66.01 278.01 AMB REFERRAL TO BARIATRIC SURGERY After much discussion, during which she states previous attempts and interventions for weight loss have been unsuccessful, will place referral to Dr. Byrd for evaluation. Advised her that phentermine is a short term solution, often with very transient results. LIPID PANEL TSH 2. Anxiety state F41.1 300.00 Continue escitalopram, prn alprazolam 3. Migraine without aura and without status migrainosus, not intractable G43.009 346.10 Continue topiramate (refilled) and nortriptyline 4. Encounter to establish care with new doctor Z76.89 V65.8 CBC WITH DIFFERENTIAL COMPREHENSIVE METABOLIC PANEL 5. Screening for lipoid disorders Z13.220 V77.91 LIPID PANEL 6. Screening for thyroid disorder Z13.29 V77.0 TSH 7. Encounter for vitamin deficiency screening Z13.21 V77.99 VITAMIN B12 LEVEL 8. Breast cancer screening by mammogram Z12.31 V76.12 MAMMO SCREEN BILAT W OR WO CAD Orders Placed This Encounter ??? MAMMO SCREEN BILAT W OR WO CAD ??? CBC WITH DIFFERENTIAL ??? COMPREHENSIVE METABOLIC PANEL ??? LIPID PANEL ??? TSH ??? VITAMIN B12 LEVEL ??? *Jerrell Byrd, DO (Bariatric Surgery) ??? topiramate (Topamax) 200 mg tablet Data Unavailable Fall Risk She has had no falls in the past year. Tobacco Intervention She is not a tobacco user. Depression Screen Positive: PHQ-2 score >= 3 or PHQ-9 score >= 9 PHQ-2 Total: 0 (04/08/2021 3:00 PM) PHQ-9 Total: 0 (04/08/2021 3:00 PM) DEPRESSION PLAN OF CARE Her depression screen was normal Blood Pressure BP Readings from Last 3 Encounters: 12/11/20 (!) 122/92 Normal BMI Range: 18 & older: > or = 18.5 and < 25 Body mass index is 44.63 kg/m??. See above discussion MIC ARTIST documented in this encounter Plan of Treatment Scheduled Referrals Name Type Priority Associated Diagnoses Orde r Schedule AMB REFERRAL TO BARIATRIC SURGERY Outpatient Referral Routine Morbid obesity with body mass index (BMI) of 40.0 or higher Ordered: 04/08/2021 documented as of this encounter Procedures Procedure Name Priority Date/Time Associated Diagnosis Comments CBC WITH DIFFERENTIAL Routine 10/08/2021 7:12 AM CDT Encounter to establish care with new doctor TSH Routine 10/08/2021 7:12 AM CDT Morbid obesity with body mass index (BMI) of 40.0 or higher Screening for thyroid disorder VITAMIN B12 LEVEL Routine 10/08/2021 7:1 2 AM CDT Encounter for vitamin deficiency screening LIPID PANEL Routine 10/08/2021 7:12 AM CDT Morbid obesity with body mass index (BMI) of 40.0 or higher COMPREHENSIVE METABOLIC PANEL Routine 10/08/2021 7:12 AM CDT Encounter to establish care with new doctor documented in this encounter Results * VITAMIN B12 LEVEL (10/08/2021 7:12 AM CDT) VITAMIN B12 286 200 - 1100 pg/mL [facility] Comment: Please Note: Although the reference range for vitamin B12 is 200-1100 pg/mL, it has been reported that between 5 and 10% of patients with values between 200 and 400 pg/mL may experience neuropsychiatric and hematologic abnormalities due to occult B12 deficiency; less than 1% of patients with values above 400 pg/mL will have symptoms. FASTING:YES FASTING: YES Test Performed at: [facility] [address] [place] ??[phone] Reece Ewing D.O., MPH Blood 10/08/2021 7:12 AM CDT 10/08/2021 7:13 AM CDT Jai Guadarrama MD CHEMISTRY ORDERABL ES [facility] [phone] * TSH (10/08/2021 7:12 AM CDT) Pathologist [facility] TSH 1.42 mIU/L [facility] Comment: ?Reference Range ?> or = 20 Years ??0.40-4.50 ? Ranges ?First trimester ?0.26-2.66 ?Second trimester ?? 0.55-2.73 ?Third trimester ?0.43-2.91 Test Performed at: [facility] ??[address] Reece Ewing D.O., MPH Blood 10/08/2021 7:12 AM CDT 10/08/2021 7:13 AM CDT Jai Guadarrama MD CHEMISTRY ORDERABL ES Performing Organization Address [facility] de Phone Number [facility] [phone] * (ABNORMAL) LIPID PANEL (10/08/2021 7:12 AM CDT) Pathologist [facility] CHOLESTEROL 253(H) <200 mg/dL [facility] HDL 34(L) > OR = 50 mg/dL [facility] TRIGLYCERIDE 137 <150 mg/dL [facility] LDL CALCULATED 192(H) mg/dL (calc) [facility] Comment: LDL-C levels > or = 190 mg/dL may indicate familial hypercholesterolemia (FH). Clinical assessment and measurement of blood lipid levels should be considered for all first degree relatives of patients with an FH diagnosis. For questions about testing for familial hypercholesterolemia, please call [facility] at [phone].INFO. Makenna T, et al. J National Lipid Association Recommendations for Patient-Centered Management of Dyslipidemia: Part 1 Journal of Clinical Lipidology 2015;9(2), 129-169. Reference range: <100 Desirable range <100 mg/dL for primary prevention; ?? <70 mg/dL for patients with CHD or diabetic patients with > or = 2 CHD risk factors. LDL-C is now calculated using the Radha calculation, which is a validated novel method providing better accuracy than the Friedewald equation in the estimation of LDL-C. Nomi SOLOMON et al. CHUCKY. 2013;310(19): 8973-0979 (http://education.[employer]/faq/HRY445) CHOL/HDL RATIO 7.4(H) <5.0 (calc) [facility] TOTAL NON-HDL CHOL(LDL+VLDL) 219(H) <130 mg/dL (calc) [facility] Comment: For patients with diabetes plus 1 major ASCVD risk factor, treating to a non-HDL-C goal of <100 mg/dL (LDL-C of <70 mg/dL) is considered a therapeutic option. Test Performed at: [facility] [address] [place], [place] ??[phone] [facility] Blood 10/08/2021 7:12 AM CDT 10/08/2021 7:13 AM CDT Jai Guadarrama MD CHEMISTRY ORDERABL ES [facility] [phone] * COMPREHENSIVE METABOLIC PANEL (10/08/2021 7:12 AM CDT) Pathologist [facility] GLUCOSE 90 65 - 99 mg/dL [facility] Comment: ? Fasting reference interval BUN 16 7 - 25 mg/dL [facility] CREATININE 0.80 0.50 - 1.10 mg/dL [facility] GFR 92 > OR = 60 mL/min/1 .73m2 [facility] GFR, 107 > OR = 60 mL/min/1 .73m2 [facility] BUN/CREAT RATIO NOT APPLICABLE 6 - 22 (calc) [email or web address] SODIUM 137 135 - 146 mmol/L [email or web address] POTASSIUM 4.5 3.5 - 5.3 mmol/L [email or web address] CHLORIDE 104 98 - 110 mmol/L [email or web address] CO2 25 20 - 32 mmol/L [email or web address] CALCIUM 9.4 8.6 - 10.2 mg/dL [facility] TOTAL PROTEIN 6.8 6.1 - 8.1 g/dL [facility] ALBUMIN 4.0 3.6 - 5.1 g/dL [facility] GLOBULIN 2.8 1.9 - 3.7 g/dL (calc) [facility] ALBUMIN/GLOBULIN RATIO 1.4 1.0 - 2.5 (calc) [facility] BILIRUBIN TOTAL 0.3 0.2 - 1.2 mg/dL [facility] ALKALINE PHOSPHATASE 80 31 - 125 U/L [facility] AST 15 10 - 30 U/L [facility] ALT 25 6 - 29 U/L [facility] Comment: Test Performed at: [facility] [address] [place], [place] ??[address] DesireMario Thomas Vo Blood 10/08/2021 7:12 AM CDT 10/08/2021 7:13 AM CDT Jai Guadarrama MD CHEMISTRY ORDERABL ES [facility] [phone] * (ABNORMAL) CBC WITH DIFFERENTIAL (10/08/2021 7:12 AM CDT) WBC 7.9 3.8 - 10.8 Thousand/ uL [facility] RBC 4.86 3.80 - 5.10 Million/u L [facility] HEMOGLOBIN 13.8 11.7 - 15.5 g/dL [facility] HEMATOCRIT 42.3 35.0 - 45.0 % [facility] MCV 87.0 80.0 - 100.0 fL [facility] MCH 28.4 27.0 - 33.0 pg [facility] MCHC 32.6 32.0 - 36.0 g/dL [facility] RDW 12.3 11.0 - 15.0 % [facility] PLATELETS 280 140 - 400 Thousand/ uL [facility] MPV 11.6 7.5 - 12.5 fL [facility] NEUTROPHIL ABSOLUTE 3,966 1,500 - 7,800 cells/uL [email or web address] LYMPHOCYTE ABSOLUTE 2,781 850 - 3,900 cells/uL [email or web address] MONOCYTE ABSOLUTE 561 200 - 950 cells/uL [email or web address] EOSINOPHIL ABSOLUTE 545(H) 15 - 500 cells/uL [email or web address] BASOPHILS ABSOLUTE 47 0 - 200 cells/uL [facility] NEUTROPHIL 50.2 % [facility] LYMPHOCYTES 35.2 % [facility] MONOCYTE 7.1 % [facility] EOSINOPHILS 6.9 % [facility] BASOPHILS 0.6 % [facility] Comment: Test Performed at: [facility] [address] [place] ??[phone] DesireMario Figueroa Blood 10/08/2021 7:12 AM CDT 10/08/2021 7:13 AM CDT Jai Guadarrama MD HEMATOLOGY ORDERAB LES [facility] [phone] documented in this encounter Visit Diagnoses Diagnosis Morbid obesity with body mass index (BMI) of 40.0 or higher- Primary Anxiety state Anxiety state, unspecified Migraine without aura and without status migrainosus, not intractable Migraine without aura, without mention of intractable migraine without mention of status migrainosus Encounter to establish care with new doctor Screening for lipoid disorders Screening for thyroid disorder Encounter for vitamin deficiency screening Screening for other and unspecified endocrine, nutritional, metabolic, and immunity disorders Breast cancer screening by mammogram documented in this encounter Care Teams Marketing Segment Manager Relationship Specialty Start [place] [address] [facility] [address] [place] [phone] PCP - General Internal Medicine 04/08/21 documented as of this encounter
--- OUTSIDE RECORDS SUMMARY | 2024-05-29 17:31 | XMS_ITS | Encounter Summary ---
Author Organization [facility] Address [address] [place]: Epic Prelude ADT [place] [address] Care Team Providers Care Final Block Press Operator Name Role Phone Jai Guadarrama MD Primary Care Provider [phone] Encounter Details Date Type Department Care Team (Latest Contact Info) Description 04/08/2022 Travel Social History Tobacco Use Types Packs/Day [...] Coronavirus/COVID-19? 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
--- OUTSIDE RECORDS SUMMARY | 2024-05-29 17:31 | XMS_ITS | Encounter Summary ---
Author Organization [facility] Address [address] [place] [address] Care Team Providers Care Meter Mechanic Name Role Phone Jai Guadarrama MD Primary Care Provider [phone]- [phone] Reason for Referral * Radiology Services (Routine) - Closed Specialty Diagnoses / Procedures Referred By Contac t Referred To Contact Diagnoses Morbid obesity with BMI of 40.0-44.9, adult Hypercholesterolemia Gastric reflux Migraine without status migrainosus, not intractable, unspecified migraine type Anxiety Family history of diabetes mellitus in father Procedures XR UPR Abelardo Malhotra PA [address] [place] [address] Referral ID Status Reason Start Date Expiration Date V isits Requested Visits Authorized [id number] Closed [facility] CTS 10/02/2021 10/31/2021 1 1 Reason for Visit * Radiology Services (Routine) - Closed Specialty Diagnoses / Procedures Referred By Contac t Referred To Contact Diagnoses Morbid obesity with BMI of 40.0-44.9, adult Hypercholesterolemia Gastric reflux Migraine without status migrainosus, not intractable, unspecified migraine type Anxiety Family history of diabetes mellitus in father Procedures XR UPR Abelardo Malhotra PA [address] [place] [address] Referral ID Status Reason Start Date Expiration Date V isits Requested Visits Authorized [id number] Closed [facility] CTS 10/02/2021 10/31/2021 1 1 Encounter Details Date Type Department Care Team (Latest Contact Info) Description 10/08/2021 7:27 AM CDT - 10/08/2021 11:59 PM CDT Hospital Encounter [facility] [address] [place] [id number] Abelardo Barrios PA [address] [place] [address] Discharge Disposition: Home or Self Care Social [...] AM CDT documented as of this encounter Medications [...] 3 06/24/2021 03/16/2023 ALPRAZolam (XANAX) 0.25 mg tabletIndications:Anxie ty state Take 1 Tablet (0.25 mg) by mouth 3 times daily as needed for Anxiety. 30 Tablet 06/24/2021 03/16/2023 documented as of this encounter Miscellaneous Notes * Treatment Plan - Marija Gutierrez RT - 10/08/2021 7:45 AM CDT [facility] Radiology Medication Protocol [facility] Approved by: [facility] - Medical Executive Committee Approval Date: 08/01/2021 ORDERS ARE ENTERED ???PER PROTOCOL?? Enter the protocol in the patient's electronic health record using smartphrase: .radiologymedicationprotocol Communication Orders: o If required to complete procedure, aeronautical engineering technologist or nurse may place indwelling singletary catheter. Medication Orders: o Sodium chloride 0.9% (normal saline) flush 10 mLs PRN for saline lock or medication administration. o For respiratory distress, initiate oxygen and/or increase O2 to maintain saturation greater than 90%. o For all invasive procedures: Obtain Lidocaine 1% for intra-procedure administration. If Lidocaine1% unavailable, may substitute Lidocaine 2%. PROCEDURE SPECIFIC RADIOLOGY MEDICATIONS *Any exceptions to these contrast protocols must be approved by a Radiologist and documented in theEHR Progress Notes. When multiple medications are listed with the comment ???OR?? them, select first option until challenges from product availability make this option unavailable. DIAGNOSTIC RADIOLOGY CONTRAST PROTOCOLS ADULTS: PROCEDURE DOSAGE ARTHROGRAMS (shoulder, wrist, hip, knee, TMJ) Iopamidol (ISOVUE-300) 61% Radiologist to administer up to 30mL, intraarticularly, one time. If MRI ordered, add 0.15mLGadobenate Dimeglumine (Multihance) to the iopamidol and mix well. (If more than 30mL is desired, radiologist may request that 50mL of iopadmidol (ISOVUE-300) 61% be mixed with 0.25mL of gadobenate dimeglumine (Multihance) BARIUM ENEMA (with or without AIR CONTRAST) Barium Sulfate (Liquid Polibar Plus) 96% (w/w) [id number] mixed with 1500mL of water, radiologist to administer up to 2000mL rectally, one time only BARIUM ENEMA HYPAQUE Iopamidol (ISOVUE-250) 51%, 800mL + CYSTOGRAFIN 30%, 900mL, radiologist to administer up to 1700 mL of combined fluids, rectally, one time. Radiologist may repeat if needed to complete procedure. CYSTOGRAM CYSTOGRAFIN 30%, Radiologist to administer up to 300mL, instill into the bladder, one time. ESOPHAGUS BARIUM SWALLOW Radiologist to request one or more of the following products: Barium Sulfate (E-Z-HD) 98% oral suspension 340g = 135mL, orally, one time. Barium Sulfate (E-Z-PAQUE) 96% (w/w) oral suspension 176g = 240mL, orally, one time. ESOPHAGUS BARIUM SWALLOW HYPAQUE Iohexol (OMNIPAQUE) 350mg/mL oral solution, radiologist to administer up to 50mL, orally, one time OR Iopamidol (ISOVUE) 370mg/mL oral solution, radiologist to administer up to 50mL, orally, one time MODIFIED BARIUM SWALLOW May use one or more of the following products, administered by Speech Language Pathologist: Barium tablet (E-Z Disk) 13mm = 700mg, up to one tablet, orally, one time. Barium Sulfate (E-Z-PAQUE) 96% oral (w/w) oral suspension up to 176g, orally, one time. May mix with food or liquid to achieve desired viscosity Barium Sulfate (E-Z-PASTE) 60% oral cream, up to 45g, orally, one time. May mix with food or liquidto achieve desired viscosity. HYSTEROSALPINGOGRAM Iopamidol (ISOVUE-300) 61%, provider to administer up to 30ml, vaginally, one time only INTRAVENOUS PYELOGRAM Iopamidol (ISOVUE-370) 76%, administer up to 85mL, intravenous, one time only. Volume of contrast injected determined by radiologist. MYELOGRAMS: CERVICAL Iopamidol (ISOVUE-M 300), 61% radiologist to administer up to 15mL, intrathecal, one time only THORACIC Iopamidol (ISOVUE-M 200) 41%, radiologist to administer up to 20mL, intrathecal, one time only LUMBAR Iopamidol (ISOVUE-M 200) 41%, radiologist to administer up to 20mL, intrathecal, one time only SMALL BOWEL SERIES Barium Sulfate (E-Z-Paque) 96% (w/w) oral suspension (Thin Barium), up to 352g =480mL orally, one time only. SMALL BOWEL SERIES HYPAQUE Iohexol (OMNIPAQUE) 350 mg/mL oral solution, 200ml, orally, one time only OR Iopamidol (ISOVUE) 370mg/mL oral solution, 200mL, orally, one time URETHROCYSTOGRAM VOIDING and RETROGRADE URETHROGRAM Diatraizoate meglumine (Cystografin) 30%, up to 300ml, instill into the bladder, one time only UPPER GI Radiologist to request one or more of the following products: Barium Sulfate (E-Z-HD) 98% oral suspension 340g = 135mL, orally, one time only. Barium Sulfate (E-Z-PAQUE) 96% (w/w) oral suspension 176g= 240mL, orally, one time only. UPPER GI HYPAQUE Iohexol (OMNIPAQUE) 350 mg/mL oral solution, 200mL, orally, one time only OR Iopamidol (ISOVUE) 370mg/mL oral solution, 200mL, orally, one time UPPER GI AIR CONTRAST Radiologist to request one or more of the following products: Barium Sulfate (E-Z-HD) 98% oral suspension 340g, orally, one time only. Barium Sulfate (E-Z-PAQUE) 96% (w/w) oral suspension 176g, orally, one time. EZ Gas crystals, one packet, orally, one time only. PORT CONTRAST INJECTION WITH FLUORO Iopamidol (Isovue-300) 61%, radiologist to administer up to 50ml, intravenous, one time only PEDIATRICS: For all procedures with an oral route, preferred route is oral; nasoenteric route may also be used.If needed, radiologist may place a nasoenteric tube to facilitate contrast administration. PROCEDURE DOSAGE UPPER GI- Under Age 5 Barium Sulfate (E-Z-Paque) 96% (w/w) oral suspension (Thin Barium), up to 176g = 240mL orally, one time only. UPPER GI HYPAQUE- Under Age 5 Radiologist to request one or more of the following products and select dose required: Iohexol (Omnipaque) 350 mg/mL oral solution, orally, one time only OR Iopamidol (ISOVUE) 370mg/mL oral solution, 200mL, orally, one time OR Iohexol (Omnipaque) 180 mg/mL oral solution, orally, one time only UPPER GI- Above Age 5 Radiologist to request one or more of the following products: Barium Sulfate (E-Z-HD) 98% oral suspension(Thick Barium), up to 340g = 135mL orally, one time only Barium Sulfate(E-Z-Paque) 96% (w/w) oral suspension (Thin Barium), up to 176g = 240mL orally, one time only EZ Gas Packet, 4g (one packet) orally, one time only. UPPER GI HYPAQUE- Above Age 5 Iohexol (Omnipaque) 350 mg/mL oral solution, up to 200mL orally, one time only. OR Iopamidol (ISOVUE) 370mg/mL oral solution, 200mL, orally, one time SMALL BOWEL SERIES- Under Age 5 Barium Sulfate (E-Z-Paque) 96% (w/w) oral suspension (Thin Barium),up to 176g = 240mL orally, one time only SMALL BOWEL SERIES HYPAQUE- Under Age 5 Radiologist to request one or more of the following products and select dose required: Iohexol (Omnipaque) 350 mg/mL oral solution, orally, one time only OR Iopamidol (ISOVUE) 370mg/mL oral solution, 200mL, orally, one time OR Iohexol (Omnipaque) 180 mg/mL oral solution, orally, one time only SMALL BOWEL SERIES- Above Age 5 Radiologist to request one or more of the following products: Barium Sulfate (E-Z-Paque) 96% (w/w) oral suspension (Thin Barium), up to 352g = 480mL orally, one time only. Iohexol (Omnipaque) 350mg/mL, up to 200mL orally, one time only OR Iopamidol (ISOVUE) 370mg/mL oral solution, 200mL, orally, one time ESOPHAGUS BARIUM SWALLOW- Under Age 5 Barium Sulfate (E-Z-Paque) 96% (w/w) oral suspension (Thin Barium), up to 176g = 240mL orally, one time only ESOPHAGUS BARIUM SWALLOW HYPAQUE-Under Age 5 Radiologist to request one or more of the following products and select dose required: Iohexol (Omnipaque) 350 mg/mL oral solution, orally, one time only OR Iopamidol (ISOVUE) 370mg/mL oral solution, 200mL, orally, one time OR Iohexol (Omnipaque) 180 mg/mL oral solution, orally, one time only ESOPHAGUS BARIUM SWALLOW- Above Age 5 Radiologist to request one or more of the following products: Barium Sulfate (E-Z-HD) 98% oral suspension (Thick Barium), up to 340g = 135mL orally, one time only. Barium Sulfate (E-Z-Paque) 96% (w/w) oral suspension (Thin Barium), up to 176g = 240mL orally, one time only. EZ Gas Packet, 4g = 1 packet orally, one time only MODIFIED BARIUM SWALLOW- Above Age 5 May use one or more of the following products, administered bySpeech Language Pathologist: Barium tablet (E-Z Disk) 700mg = 13mm, up to one tablet, orally, one time. Barium Sulfate 96% oral suspension (E-Z-PAQUE), up to 176g, orally, one time. May mix with food or liquid to achieve desired viscosity. Barium Sulfate (E-Z-PASTE) 60%oral cream, up to 45g, orally, one time. May mix with food or liquid to achieve desired viscosity. MODIFIED BARIUM SWALLOW-Under age 5 May use one or more of the following products, administered by Speech Language Pathologist: Barium Sulfate 96% oral suspension (E-Z-PAQUE), up to 176g, orally, one time. May mix with food or liquid to achieve desired viscosity. Barium Sulfate (E-Z-PASTE) 60% oral cream, up to 45g, orally, one time. May mix with food or liquidto achieve desired viscosity. SPEECH VIDEO FLOUROSCOPY Administered by Speech Language Pathologist: Barium Sulfate (E-Z-HD) 98% , 1 mL in each nostril, intranasally, one time only. INTRAVENOUS PYELOGRAM Iopamidol (ISOVUE-370) 76%, administer up to 85mL, intravenous, one time only. Volume of contrast injected determined by radiologist. URETHROCYSTOGRAM VOIDING Iothalamate Meglumine (Cystografin Dilute) 18%, up to 300mL, instill into the bladder, one time only OR Iothalamate Meglumine (Cysto Conray II Urethral) 17.2%, up to 250mL, instill into the bladder, one time only BARIUM ENEMA HYPAQUE Iothalamate Meglumine (Cystographin Dilute) 18%, 300 mL, radiologist to administer up to 750mL rectally, one time. Radiologist may repeat if needed to complete procedure. OR Iothalamate Meglumine (Cysto Conray II Urethral) 17.2%, 250 mL, radiologist to administer up to 750mL rectally, one time. Radiologist may repeat if needed to complete procedure. BARIUM ENEMA (with or without AIR CONTRAST) Barium Sulfate (Liquid Polibar Plus) 96% (w/w) 454g =500mL mixed with 1500mL of water, radiologist to administer up to 2000mL of mixture rectally, one timeonly documented in this encounter Plan of Treatment Not on file documented as of this encounter Procedures Procedure Name Priority Date/Time Associated Diagnosis Comments XR UPR GI Routine 10/08/2021 8:12 AM CDT Morbid obesity with BMI of 40.0-44.9, adult Hypercholesterolemia Gastric reflux Migraine without status migrainosus, not intractable, unspecified migraine type Anxiety Family history of diabetes mellitus in father documented in this encounter Results * XR UPR GI (10/08/2021 8:12 AM CDT) Anatomical Region Laterality Modality Abdomen Computed Radiogr aphy 10/08/2021 8:16 AM CDT Impressions 10/08/2021 8:43 AM CDT IMPRESSION: ?? Small hiatal hernia. DICTATION LOCATION: Location [address] [place] [address] 10/08/2021 8:43 AM CDT EXAMINATION: UPPER GI DATE: ??10/08/2021 8:12 AM HISTORY: ??See Diagnosis. . Morbid obesity with BMI of 40.0-44.9, adult; Morbid obesity with BMI of 40.0-44.9, adult; Hypercholesterolemia; Gastric reflux; Migraine without status migrainosus, not intractable, unspecified migraine type; Anxiety; Family history of diabetes mellitus in father. COMPARISON: None TECHNIQUE: Barium was given by mouth without complication. ?? FLUOROSCOPY TIME: ??1.1 minutes. ? Dose: 46.2 mGy. 18 images. FINDINGS: ?? Swallowing function is grossly intact. The esophagus is normal in caliber and appearance. There were no witnessed episodes of gastroesophageal reflux. The stomach is radiographically intact. There is prompt gastric emptying to normal duodenal sweep. A small hiatal hernia is seen. ??Postoperative clips right upper quadrant. Procedure Note Jun Mcmillan MD - 10/08/2021 EXAMINATION: UPPER GI DATE: 10/08/2021 8:12 AM [...] is seen. Postoperative clips right upper quadrant. IMPRESSION: Small hiatal hernia. DICTATION LOCATION: Location [address] [place] [address] Abelardo [facility] NG ORDERABLES documented in this encounter Visit Diagnoses Diagnosis Morbid obesity with BMI of 40.0-44.9, adult Hypercholesterolemia Pure hypercholesterolemia Gastric reflux Esophageal reflux Migraine without status migrainosus, not intractable, unspecified migraine type Anxiety Anxiety state, unspecified Family history of diabetes mellitus in father documented in this encounter Administered Medications Inactive Administered Medications - up to 3 most recent administrations Medication Order MAR Action Action Date Dose Rate Site barium (E-Z-HD) 98% w/w oral powder for suspension 340 Gram 340 Gram, Oral, INTRA-PROCEDURE ONCE, 1 dose, Starting on Thu10/08/21 at 0813, Until Thu10/08/21 at 0814, Routine Given 10/08/2021 8:14 AM CDT 340 Grams barium (Car-TRENTON,MYLENE JI MD) 96 % (w/w) powder for suspension 1 Bottle 1 Bottle, Oral, INTRA-PROCEDURE ONCE, 1 dose, Starting on Thu10/08/21 at 0813, Until Thu10/08/21 at 0814, Routine Given 10/08/2021 8:14 AM CDT 1 Bottle sod bicarb-citric ac-simeth (EZ GAS II) oral packet 1 Packet 1 Packet, Oral, PRE-PROCEDURE ONCE, 1 dose, Starting on Thu10/08/21 at 0814, Until Thu10/08/21 at 0814, Routine Given 10/08/2021 8:14 AM CDT 1 Packet documented in this encounter Care Teams Meter Mechanic Relationship Specialty Start [place] [id number] [facility] [address] [place] [phone] PCP - General Internal Medicine 04/08/21 documented as of this encounter
--- OUTSIDE RECORDS SUMMARY | 2024-05-29 17:31 | XMS_ITS | Encounter Summary ---
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 TRANSPORTATION CLERK 04/22/2022 10:52 AM TRANSPORTATION CLERK [place] DO BLOOD BANK ORDERABLE S [facility] LABORATORY SERVICES -- [facility] CLIA# [id number] [address] [place] [address] * (ABNORMAL) CBC WITH DIFFERENTIAL (04/22/2022 9:40 AM TRANSPORTATION CLERK) [facility] WBC 7.0 4.0 - 9.8 K/uL 04/22/2022 11:01 AM TRANSPORTATION CLERK [facility] LABORATORY SERVICES - [facility] RBC 5.00(H) 3.90 - 4.90 M/uL 04/22/2022 11:01 AM [employer] LABORATORY SERVICES - [facility] HEMOGLOBIN 14.1 11.8 - 14.8 g/dL 04/22/2022 11:01 AM [employer] LABORATORY SERVICES - [facility] HEMATOCRIT 43.5 35.5 - 44.0 % 04/22/2022 11:01 AM [employer] LABORATORY SERVICES - [facility] MCV 87.0 82.0 - 99.0 fL 04/22/2022 11:01 AM [employer] LAB[facility]ATORY SERVICES - [facility] MCH 28.2 27.2 - 32.6 pg 04/22/2022 11:01 AM [employer] LABORATORY SERVICES - [facility] MCHC 32.4 31.5 - 35.5 g/dL 04/22/2022 11:01 AM [employer] LAB[facility]ATORY SERVICES - [facility] RDW 12.5 11.5 - 14.5 % 04/22/2022 11:01 AM [employer] [facility]ATORY SERVICES - [facility] RDW-STDEV 39.7 37.1 - 48.7 fL 04/22/2022 11:01 AM [employer] LAB[facility]ATORY SERVICES - [facility] PLATELETS 310 140 - 350 K/uL 04/22/2022 11:01 AM [employer] [facility]ATORY SERVICES - [facility] MPV 11.1 9.3 - 12.4 fL 04/22/2022 11:01 AM [facility] [facility] - [facility] NEUTROPHILS 55 % 04/22/2022 11:01 AM [employer] [facility] - [facility] LYMPHOCYTES 32 % 04/22/2022 11:01 AM [employer] [facility] - [facility] MONOCYTES 8 % 04/22/2022 11:01 AM [employer] [facility] - [facility] EOSINOPHILS 5 % 04/22/2022 11:01 AM [employer] [facility] - [facility] BASOPHILS 1 % 04/22/2022 11:01 AM [employer] [facility] - [facility] IMMATURE GRANULOCYTES 0 % 04/22/2022 11:01 AM [employer] [facility]ORY [facility] - [facility] NEUTROPHIL ABSOLUTE 3.81 1.90 - 7.00 K/uL 04/22/2022 11:01 AM [employer] LAB[facility]ATORY SERVICES - [facility] LYMPHOCYTE ABSOLUTE 2.22 0.70 - 4.50 K/uL 04/22/2022 11:01 AM TRANSPORTATION CLERK [employer] LABORATORY SERVICES - [facility] MONOCYTE ABSOLUTE 0.52 0.10 - 1.30 K/uL 04/22/2022 11:01 AM TRANSPORTATION CLERK [employer] LABORATORY SERVICES - [facility] EOSINOPHIL ABSOLUTE 0.33 0.00 - 0.70 K/uL 04/22/2022 11:01 AM TRANSPORTATION CLERK [employer] LABORATORY SERVICES - [facility] BASOPHILS ABSOLUTE 0.05 0.00 - 0.20 K/uL 04/22/2022 11:01 AM TRANSPORTATION CLERK [employer] LABORATORY SERVICES - [facility] IMMATURE GRANULOCYTES ABSOLUTE 0.03 0.00 - 0.03 K/uL 04/22/2022 11:01 AM TRANSPORTATION CLERK [employer] LABORATORY SERVICES - [facility] Blood Venipuncture / Unknown 04/22/2022 9:40 AM TRANSPORTATION CLERK 04/22/2022 10:52 AM TRANSPORTATION CLERK [place] DO HEMATOLOGY ORDERABLE S [facility] LABORATORY SERVICES - [facility] CLIA# [id number] [address] [place] [address] * TYPE AND SCREEN (04/22/2022 9:40 AM TRANSPORTATION CLERK) ABO GROUP O 04/22/2022 1:09 PM [facility] LABORATORY SERVICES -- [facility] RH (D) TYPE Positive 04/22/2022 1:09 PM TRANSPORTATION CLERK [employer] LABORATORY SERVICES -- [facility] ANTIBODY SCREEN Positive 04/22/2022 1:09 PM TRANSPORTATION CLERK [employer] LABORATORY SERVICES -- [facility] Blood Venipuncture / Unknown 04/22/2022 9:40 AM TRANSPORTATION CLERK 04/22/2022 10:52 AM TRANSPORTATION CLERK [place] DO BLOOD BANK ORDERABLE S [facility] LABORATORY SERVICES -- [facility] CLIA# [id number] [address] [place] [address] * ZINC LEVEL (04/22/2022 9:40 AM TRANSPORTATION CLERK) ZINC LEVEL 84 60 - 130 mcg/dL 04/24/2022 7:37 PM TRANSPORTATION CLERK [facility] Comment: This test was developed and its analytical performance characteristics have been determined by [employer]. It has not been cleared or approved by the FDA. This assay has been validated pursuant to the CLIA regulations and is used for clinical purposes. Blood Venipuncture / Unknown 04/22/2022 9:40 AM TRANSPORTATION CLERK 04/22/2022 10:52 AM TRANSPORTATION CLERK Narrative [facility] - 04/24/2022 7:37 PM TRANSPORTATION CLERK Performing Organization Information: ?Site ID: [id number] ?Name: [employer] ?Address: [address] [place] [id number] ?Director: Shyam Roberts M.D. [place] DO CHEMISTRY ORDERABLES Performing Organization Address [facility] de Phone Number [facility] [phone] * VITAMIN B1 LEVEL (04/22/2022 9:40 AM TRANSPORTATION CLERK) Pathologist [facility] VITAMIN B1 13 8 - 30 nmol/L 04/26/2022 10:35 AM [facility] Comment: Vitamin supplementation within 24 hours prior to blood draw may affect the accuracy of results. ? This test was developed and its analytical performance characteristics have been determined by [employer]. It has not been cleared or approved by the FDA. This assay has been validated pursuant to the CLIA regulations and is used for clinical purposes. Blood Venipuncture / Unknown 04/22/2022 9:40 AM TRANSPORTATION CLERK 04/22/2022 10:52 AM TRANSPORTATION CLERK Narrative [facility] - 04/26/2022 10:35 AM TRANSPORTATION CLERK Performing Organization Information: ?Site ID: [id number] ?Name: [employer] ?Address: [address] [place] [address] ?Director: Armando Calvin M.D. [place] DO CHEMISTRY ORDERABLES Performing Organization Address City/[facility]/ZIP Co de Phone Number [facility] [phone] * (ABNORMAL) VITAMIN D 25 HYDROXY (04/22/2022 9:40 AM TRANSPORTATION CLERK) Pathologist [facility] VITAMIN D TOTAL (25OH) 29(L) 30 - 100 ng/mL 04/22/2022 11:42 AM [facility] [employer] [facility] Blood Venipuncture / Unknown 04/22/2022 9:40 AM TRANSPORTATION CLERK 04/22/2022 10:52 AM [facility] Narrative [facility] [employer] [facility] - 04/22/2022 11:42 AM [facility] Interpretive Data Chart: Deficient: ? 0 - 20 ng/mL Insufficient: ?21 - 29 ng/mL Sufficient: ?30 - 100 ng/mL Increased Risk of Hypercalciuria: ??>100 ng/ml Toxic: ? >150 ng/ml [place] DO CHEMISTRY ORDERABLES Performing Organization Address [facility] de Phone Number [facility] [employer] [facility]# [id number] [address] [place] [address] * VITAMIN B12 AND FOLATE (04/22/2022 9:40 AM [facility]) Pathologist [facility] VITAMIN B12 444 232 - 1,245 pg/mL 04/22/2022 11:42 AM [facility] [employer] [facility] Comment:It has been reported that between 5 to 10% of patients with values between 200 and 400 pg/mL may experience neuropsychiatric and hematologic abnormalities due to occult B12 deficiency. Less than 1% of patients with values above 400 pg/mL will have symptoms. FOLATE, SERUM 6.2 >4.5 ng/mL 04/22/2022 11:42 AM [facility] Blood Venipuncture / Unknown 04/22/2022 9:40 AM TRANSPORTATION CLERK 04/22/2022 10:52 AM TRANSPORTATION CLERK [place] DO CHEMISTRY ORDERABLES Performing Organization Address [facility] Co de Phone Number [facility]# [id number] [address] [place] [address] * TSH (04/22/2022 9:40 AM TRANSPORTATION CLERK) TSH 0.76 0.27 - 4.20 uIU/mL 04/22/2022 11:34 AM [facility] Blood Venipuncture / Unknown 04/22/2022 9:40 AM TRANSPORTATION CLERK 04/22/2022 10:52 AM TRANSPORTATION CLERK [place] DO CHEMISTRY ORDERABLES Performing Organization Address [facility] de Phone Number [facility]# [id number] [address] [place] [address] * PTT (04/22/2022 9:40 AM TRANSPORTATION CLERK) PTT 28.3 24.4 - 36.4 seconds 04/22/2022 11:10 AM [facility] Comment: PTT Therapeutic Range: Heparin Level ? PTT (seconds) <0.10 units/mL ? <53 0.10 - 0.30 units/mL ? 53 - 67 0.30 - 0.70 units/mL* ?67 - 95* 0.70 - 1.00 units/mL ? 95 - 116 *corresponds to therapeutic range for unfractionated heparin Blood Venipuncture / Unknown 04/22/2022 9:40 AM TRANSPORTATION CLERK 04/22/2022 10:52 AM TRANSPORTATION CLERK [place] DO HEMATOLOGY ORDERABLE S Performing Organization Address [facility]/ZIP Co de Phone Number [facility] LAB[facility]ATORY SERVICES - [facility]# [id number] [address] [facility] [place] [address] * PROTIME-INR (04/22/2022 9:40 AM TRANSPORTATION CLERK) PROTIME 13.9 12.7 - 15.1 Seconds 04/22/2022 11:10 AM TRANSPORTATION CLERK [employer] LABORATORY SERVICES - [facility] INR 1.0 0.9 - 1.1 04/22/2022 11:10 AM TRANSPORTATION CLERK [employer] LABORATORY SERVICES [facility] Blood Venipuncture / Unknown 04/22/2022 9:40 AM TRANSPORTATION CLERK 04/22/2022 10:52 AM TRANSPORTATION CLERK Narrative [employer] LABORATORY SERVICES - [facility] - 04/22/2022 11:10 AM TRANSPORTATION CLERK INR Therapeutic Range: Adult: ?? 2.0 - 3.0 for pulmonary embolism or prophylaxis against venous ?thrombosis or systemic embolization. 2.0 - 3.0 for patients with tissue heart valves. 2.5 - 3.5 for patients with mechanical heart valves or post IL. Pediatric ??(12 years and under): 1.5 - 3.0 Although the target range in children is not well established, ?INR values of 1.5 - 3.0 are recommended for most patients. ?Higher values have been used in children with prosthetic ?cardiac valves and hereditary clotting disorders. (<3 days) therapeutic ranges have not been established. [place] DO HEMATOLOGY ORDERABLE S Performing Organization Address City/[facility]/ZIP Co de Phone Number [employer] LABORATORY SERVICES [facility]# [id number] [address] [facility] [place] [address] * (ABNORMAL) LIPID PANEL (04/22/2022 9:40 AM [facility]) CHOLESTEROL 291(H) <200 mg/dL 04/22/2022 11:29 AM [facility] LABORATORY [facility] TRIGLYCERIDE 112 <150 mg/dL 04/22/2022 11:29 AM [facility] [employer] [facility] HDL 36(L) 40 - 59 mg/dL 04/22/2022 11:29 AM [facility] [employer] [facility]. [facility] LDL CALCULATED 233(H) <100 mg/dL 04/22/2022 11:29 AM [facility] [employer] [facility] NON-HDL CHOLESTEROL 255(H) <130 mg/dL 04/22/2022 11:29 AM [facility] [employer] [facility] Blood Venipuncture / Unknown 04/22/2022 9:40 AM TRANSPORTATION CLERK 04/22/2022 10:52 AM [facility] [employer] [facility] - 04/22/2022 11:29 AM [facility] TOTAL CHOLESTEROL ??mg/dL ??Desirable <200 ??Borderline high 200-239 ??High >=240 TRIGLYCERIDES ??mg/dL ??Normal <150 ??Borderline high 150-199 ??High 200-499 ??Very high >=500 HDL CHOLESTEROL ??mg/dL ??Low <40 ??Normal 40-59 ??Desirable >=60 NON HDL CHOLESTEROL mg/dL ??Optimal <130 ??Near Optimal 130-159 ??Borderline High 160-189 ??Very High >=190 CALCULATED LDL mg/dL ??LDL <70, OPTIMAL if have Atherosclerotic cardiovascular disease (ASCVD) ??or intermediate or higher (>7.5%) 10 year risk of ASCVD including most adults ??with diabetes. ??LDL <100, Optimal in adult patients with low (<7.5%) 10 year ASCVD risk ??LDL 100-160, Suboptimal ??LDL >160, High ??LDL >190, Very high ATPIII Guidelines Reference Ranges for Lipid Panels (NCEP/AMA) . [place] DO CHEMISTRY ORDERABLES Performing Organization Address [facility]/ZIP Co de Phone Number [facility] [employer] [facility] CLIA# [id number] [address] [place] [address] * IRON, TIBC, AND PERCENT SATURATION (04/22/2022 9:40 AM TRANSPORTATION CLERK) IRON 118 37 - 145 ug/dL 04/22/2022 11:29 AM TRANSPORTATION CLERK [employer] [facility] TIBC 279 250 - 450 ug/dL 04/22/2022 11:29 AM [facility] [place] [facility] IRON % SATURATION 42 15 - 50 % 04/22/2022 11:29 AM [facility] [place] [facility] TRANSFERRIN 220 200 - 360 mg/dL 04/22/2022 11:29 AM [facility] [place] [facility] Blood Venipuncture / Unknown 04/22/2022 9:40 AM TRANSPORTATION CLERK 04/22/2022 10:52 AM TRANSPORTATION CLERK [place] DO CHEMISTRY ORDERABLES Performing Organization Address [facility] Co de Phone Number [facility] [employer] [facility] [id number] [address] [place] [address] * HEMOGLOBIN A1C (04/22/2022 9:40 AM TRANSPORTATION CLERK) HEMOGLOBIN A1C 5.3 <5.7 % 04/22/2022 11:15 AM TRANSPORTATION CLERK [place] [facility] EST. AVG GLUCOSE, A1C 105 mg/dL 04/22/2022 11:15 AM [facility] [place] [facility] Blood Venipuncture / Unknown 04/22/2022 9:40 AM TRANSPORTATION CLERK 04/22/2022 10:52 AM TRANSPORTATION CLERK Narrative [facility] LABORATORY [facility] - 04/22/2022 11:15 AM TRANSPORTATION CLERK HGB A1C INTERPRETATION NORMAL: ? <5.7% PRE-DIABETES: 5.7 - 6.4% DIABETES: ? 6.5% OR GREATER [place] DO CHEMISTRY ORDERABLES [facility] [employer] [facility] [id number] [address] [place] [address] * (ABNORMAL) FERRITIN (04/22/2022 9:40 AM TRANSPORTATION CLERK) FERRITIN 306.0(H) 13.0 - 150.0 ng/mL 04/22/2022 11:34 AM TRANSPORTATION CLERK [employer] LABORATORY SERVICES [facility] Blood Venipuncture / Unknown 04/22/2022 9:40 AM TRANSPORTATION CLERK 04/22/2022 10:52 AM TRANSPORTATION CLERK Tung Mathew Carson DAVIS CHEMISTRY ORDERABLES Performing Organization Address [facility] Co de Phone Number [facility] [employer] [facility]# [id number] [address] [place] [address] * (ABNORMAL) COMPREHENSIVE METABOLIC PANEL (04/22/2022 9:40 AM TRANSPORTATION CLERK) SODIUM 139 136 - 145 mmol/L 04/22/2022 11:29 AM [employer] LABORATORY SERVICES - . [facility] POTASSIUM 3.9 3.5 - 5.0 mmol/L 04/22/2022 11:29 AM [employer] LABORATORY SERVICES - . [facility] CHLORIDE 103 98 - 107 mmol/L 04/22/2022 11:29 AM TRANSPORTATION CLERK [employer] LABORATORY SERVICES - [facility] CO2 26 22 - 29 mmol/L 04/22/2022 11:29 AM [employer] LABORATORY SERVICES - [facility] CALCIUM 9.8 8.6 - 10.2 mg/dL 04/22/2022 11:29 AM TRANSPORTATION CLERK [employer] LABORATORY SERVICES - [facility] BUN 12 6 - 20 mg/dL 04/22/2022 11:29 AM [employer] LABORATORY SERVICES - . [facility] CREATININE 0.85 0.51 - 0.95 mg/dL 04/22/2022 11:29 AM TRANSPORTATION CLERK [employer] LABORATORY SERVICES - [facility] GLUCOSE 93 74 - 99 mg/dL 04/22/2022 11:29 AM TRANSPORTATION CLERK [facility] TOTAL PROTEIN 7.5 6.7 - 8.6 g/dL 04/22/2022 11:29 AM [facility] ALBUMIN 4.4 3.5 - 5.2 g/dL 04/22/2022 11:29 AM [facility] BILIRUBIN TOTAL 0.5 0.3 - 1.2 mg/dL 04/22/2022 11:29 AM [facility] ALKALINE PHOSPHATASE 84 35 - 104 U/L 04/22/2022 11:29 AM [facility] AST 22 <33 U/L 04/22/2022 11:29 AM [facility] ALT 36(H) <34 U/L 04/22/2022 11:29 AM [facility] GFR >60 >=60 mL/min/1.7 3 sq meter 04/22/2022 11:29 AM [facility] Comment:eGFR calculated with 2020 CKD-EPI equation. Vegetarian diet, extremely high or low muscle mass, and may affect results. Cystatin C with Glomerular Filtration Rate is a suitable alternative for these patients. ANION GAP 10 8 - 16 mmol/L 04/22/2022 11:29 AM [facility] Blood Venipuncture / Unknown 04/22/2022 9:40 AM TRANSPORTATION CLERK 04/22/2022 10:52 AM TRANSPORTATION CLERK Narrative [facility] - 04/22/2022 11:29 AM TRANSPORTATION CLERK Samples containing indocyanine green cause interferences on Total and/or Direct Bilirubin and must not be measured. [place] DO CHEMISTRY ORDERABLES [facility]# [id number] [address] [facility] [address] [place] [place] [address] * EKG 12-LEAD (04/22/2022 9:35 AM TRANSPORTATION CLERK) 04/22/2022 9:35 AM TRANSPORTATION CLERK Narrative INTERFACE SYSTEM - 04/22/2022 4:55 PM TRANSPORTATION CLERK ? Stationary ECG Study ? [facility] ? Test Date: ?04/22/2022 9:35 AM Pat Name: ? LELA RILEY ? Department: ?? 46 ?Room: ? Gender: ? F ?Senior Policy Associate: ?? [email or web address] : ?1980 ? Requested By: TUNG HILL A Order Number: [id number] ? Reading MD: ?? Harman Brunrochelle ? Measurements Intervals ?Exchange ? Rate: ? 61 ? P: ?47 DC: ? 174 ?QRS: ?8 QRSD: ? 79 ? T: ?29 QT: ? 438 ? QTc: ?442 ? Interpretive Statements ? Sinus rhythm Low voltage, precordial leads Borderline T abnormalities, anterior leads Electronically Signed On 04-22-2022 16:55:33 TRANSPORTATION CLERK by Harman Hancock Procedure Note Harman Hancock MD - 04/22/2022 Stationary ECG Study [facility] Test Date: 04/22/2022 9:35 AM Pat Name: LELA LIN Department: 46 Room: Gender: F Senior Policy Associate: arelis : 1980 Requested By: TUNG Mathew Order Number: [id number] Tri VAUGHN: Harman Hancock Measurements Intervals Exchange Rate: 61 P: 47 DC: 174 QRS: 8 QRSD: 79 T: 29 QT: 438 QTc: 442 Interpretive Statements Sinus rhythm Low voltage, precordial leads Borderline T abnormalities, anterior leads Electronically Signed On 04-22-2022 16:55:33 TRANSPORTATION CLERK by Harman Hancock [place] DO ECG ORDERABLES INTERFACE SYSTEM Refer to clinic/hospital department documented in this encounter Visit Diagnoses Diagnosis Encounter for blood typing- Primary Morbid obesity with BMI of 40.0-44.9, adult Morbid obesity with BMI of 40.0-44.9, adult documented in this encounter Care Teams Automotive Engineering Technician Relationship Specialty [place] [address] [facility] [address] [place] [phone] PCP - General Internal Medicine 04/08/21 documented as of this encounter
--- OUTSIDE RECORDS SUMMARY | 2024-05-29 17:31 | XMS_ITS | Encounter Summary ---
Author Organization [facility] Address [address] Kaplan: Epic Prelude [place] [address] Care Team Providers Care Chemical Technician Name Role Phone Jai Guadarrama MD Primary Care Provider +1- [phone] Encounter Details Date Type Department Care Team (Latest Contact Info) Description 09/11/2021 Travel Social History Tobacco Use Types Packs/Day [...] on filedocumented in this encounter Care Teams Chemical Technician Relationship Specialty [place] [address] [place] [address] [place] [phone] PCP - General Internal Medicine 04/08/21 documented as of this encounter
--- OUTSIDE RECORDS SUMMARY | 2024-05-29 17:31 | XMS_ITS | Encounter Summary ---
Author Organization [facility] Address [address] [place]: Epic Prelude [place] [address] Care Team Providers Care Venue Manager Name Role Phone Jai Guadarrama MD Primary Care Provider +1- [phone] Encounter Details Date Type Department Care Team (Latest Contact Info) Description 10/30/2021 Travel Social History Tobacco Use Types Packs/Day [...] on filedocumented in this encounter Care Teams Venue Manager Relationship Specialty [place] [address] [place] [address] [place] [phone] PCP - General Internal Medicine 04/08/21 documented as of this encounter
--- OUTSIDE RECORDS SUMMARY | 2024-05-29 17:31 | XMS_ITS | Encounter Summary ---
Author Organization [facility] Address [address] [place] [address] Care Team Providers Care Hematology Nurse Name Role Phone Jai Guadarrama MD Primary Care Provider +1- [phone] Encounter Details Date Type Department Care Team (Late st Contact Info) Description 02/19/2022 Abstract [facility] [address] [place] [address] Lorene Christianson, RN Social History Tobacco Use Types Packs/Day [...] Infection Onset Date Last Indicated Resolved Time COVID-19 01/22/2022 01/22/2022 02/21/2022 1:16 AM CDT documented as of this encounter Care Teams Hematology Nurse Relationship Specialty Start [place] [address] [place] [address] [place] [phone] PCP - General Internal Medicine 04/08/21 documented as of this encounter
--- OUTSIDE RECORDS SUMMARY | 2024-05-29 17:31 | XMS_ITS | Encounter Summary ---
Author Organization [facility] Address [address] [place] [address] Care Team Providers Care Internet Site Designer Name Role Phone Jai Guadarrama MD Primary Care Provider +1- [phone] Reason for Visit * Auth/Cert Specialty Diagnoses / Procedures Referred By Contact Referred To Contact Perioperative Diagnoses Gastroesophageal reflux disease without esophagitis Procedures WY ESOPHAGOGASTRODUODENOSCOPY TRANSORAL DIAGNOSTIC ESOPHAGOGASTRODUODENOSCOPY [facility] Gi Lab [address] [place] [address] Referral ID Status Reason Start Date Expiration Date Visits Re quested Visits Authorized [id number] 1 1 Encounter Details Date Type Department Care Team (Latest Contact Info) Description 10/11/2021 8:43 AM CDT - 10/11/2021 9:58 AM CDT Hospital Encounter [facility] GI Lab S Daljit Kumar [address] [place] [address] Jerrell Byrd, DO [address] [address] Gastroesophageal reflux disease without esophagitis Discharge Disposition: Home or Self Care Social [...] Sign Reading Time Taken Comments Blood Pressure 110/67 10/11/2021 9:38 AM CDT Pulse 73 10/11/2021 9:38 AM CDT Temperature 36.2 ??C (97.1 ??F) 10/11/2021 9:28 AM CD T Respiratory Rate 17 10/11/2021 9:38 AM CDT Oxygen Saturation 95% 10/11/2021 9:38 AM CDT Inhaled Oxygen Concentration - - Weight 118.4 kg (261 lb) 10/11/2021 9:08 AM CDT Height 162.6 cm (5' 4 ) 10/11/2021 9:08 AM CDT Body Mass Index 44.8 10/11/2021 9:08 AM CDT documented in this encounter Medications at Time [...] as of this encounter H&P Notes * Jerrell Byrd DO - 10/11/2021 9:04 AM CDT Images from the original note were not included. Patient: Renata Lei : 1980 [facility] [address] [facility] [address] [place] [address] HISTORY & PHYSICAL 10/11/2021 HISTORY OF PRESENT ILLNESS: Patient is a(n) 41 y.o. female scheduled for EGD for GERD and Epigastric pain and pre-operative assessment prior to bariatric surgical procedure. Past Medical History: Diagnosis Date ??? Anxiety ??? Migraine headache ??? Morbid obesity Past Surgical History: Procedure Laterality Date ??? HX KNEE REPLACEMENT Left 1997 ??? HX LAP CHOLECYSTECTOMY 2005 Medications Prior to Admission Medication Sig Dispense Refill Last Dose ??? nortriptyline (PAMELOR) 25 mg capsule Take 1 Capsule (25 mg) by mouth daily. 90 Capsule 3 ??? cetirizine (ZyrTEC) 10 mg tablet Take 1 Tablet (10 mg) by mouth daily 90 Tablet 3 ??? ALPRAZolam (XANAX) 0.25 mg tablet Take 1 Tablet (0.25 mg) by mouth 3 times daily as needed for Anxiety. 30 Tablet 0 ??? atovaquone-proguaniL (Malarone) 250-100 mg Tablet Take 1 Tablet by mouth daily // beginning 2 days prior to visit, during visit, and for 7 days after return 20 Tablet 0 ??? escitalopram oxalate (LEXAPRO) 10 mg tablet Take 10 mg by mouth daily. ??? topiramate (Topamax) 200 mg tablet Take 1 Tablet (200 mg) by mouth daily. 90 Tablet 3 No Known Allergies Social History Socioeconomic History ??? Marital status: Single Spouse name: Not on file ??? Number of children: Not on file ??? Years of education: Not on file ??? Highest education level: Not on file Occupational History ??? Not on file Tobacco Use ??? Smoking status: Former Smoker Quit date: 2018 Years since quittin.4 ??? Smokeless tobacco: Never Used Substance and Sexual Activity ??? Alcohol use: Yes Comment: occas ??? Drug use: Not on file ??? Sexual activity: Not on file Other Topics Concern ??? Not on file Social History Narrative ??? Not on file Social Determinants of Health Financial Resource Strain: Not on file Food Insecurity: Not on file Transportation Needs: Not on file Physical Activity: Not on file Stress: Not on file Social Connections: Not on file Intimate Partner Violence: Not on file Housing Stability: Not on file Family History Problem Relation Name Age of Onset ??? Diabetes Father ??? High Cholesterol Father REVIEW OF SYSTEMS: Constitutional: No weight loss, no malaise Respiratory: No shortness of breath, no chest pain Cardiovascular: No angina, no palpitation Gastrointestinal: No dysphagia, no abdominal pain Musculoskeletal: No muscle pain PHYSICAL EXAM: There were no vitals taken for this visit. Head: Normal Lungs: Clear to auscultation bilaterally Airway: No apparent abnormalities Heart: Regular rate and rhythm Abdomen: Soft, nontender, nondistended Neurologic: Alert & oriented x 3 IMPRESSION: 1. Indications for procedure as noted in HPI. PLAN: I discussed the patient's current clinical situation with her in depth. Risks of the procedure include, but are not limited to, sore throat, bleeding, perforation, and complications from anesthesia. They understand and wish to proceed with the procedure. The patient's questions were answered. Elias Byrd DO 10/11/2021, 9:04 AM [facility] documented in this encounter Procedure Notes * Jerrell Byrd DO - 10/11/2021 9:26 AM CDTAssociated Order(s): UPPER ENDOSCOPY REPORT [facility] Endoscopy Patient Name: Renata Lei Procedure Date: [...] recommendations were discussed with the patient. Jerrell Byrd DO 10/11/2021 9:26:04 AM Number of Addenda: 0 [address] [facility] [place] [address] documented in this encounter OR Notes * Jasmin-OP - Za Orozco RN - 10/11/2021 9:01 AM CDT Patient/Family discussion included an explanation that: Standard practice for endoscopists at [facility] includes use of an oral bite block to facilitate upper endoscopy and to prevent you from biting onto the scope or yourself during the procedure.This bite block is placed by a [facility] procedure room nurse/earth science laboratory technician prior to the procedure. Pressure that you place on this bite block during the procedure may cause damage to teeth, fillings, and/or dental appliances that may be due to pre-existing dental disease or the age/wear of your dental appliance or structural weakness of teeth or a dental appliance; that may be a known or unknown condition. Should you experience new dental symptoms or a dental complication, if you choose, an effort will be made to facilitate a same day or prompt dental evaluation by [facility] Dental Medicine. * Jasmin-OP - Za Orozco RN - 10/11/2021 9:01 AM CDT Routine Pre-Anesthesia Protocol for GI Lab Procedures [facility] Approved by: [facility] - Medical Executive Committee Approval Date: 08/01/2021 ORDERS ARE ENTERED ???PER PROTOCOL?? Enter the protocol in the patient???s electronic health record using Bux180e: .anestprotocolgilab Nursing Orders: Monitoring ??? Obtain and record vital signs [facility] ??? Continuous vital signs (Non-invasive blood pressure, pulse oximetry and cardiac monitoring) for: o All inpatients o All patients currently taking beta-blockers o Patients diagnosed with/or at risk for sleep apnea (e.g., STOP-BANG greater than or equal to 3) Glycemic Control ??? POC glucose for diabetics ??? Notify provider for any POC glucose or serum glucose less than 70 mg/dL. If POC Glucose resultsare critical, do not delay treatment. If appropriate, may confirm POC with: Nursing Only [id number] (this lab can be obtained at no cost to the patient when confirming a critical high or Critical low POC glucose. See hypoglycemia protocol for additional orders if needed: STL ANES Adult Perianesthesia HYPOglycemia Protocol ??? Notify any provider for any POC glucose or serum glucose greater than 180 mg/dL. ??? When receiving report on an inpatient, confirm if patient is receiving dextrose containing fluids to prevent hypoglycemia. Communicate with the anesthesiologist and request glucose containing fluids be continued or added to intraoperative/intraprocedure fluids. ??? POC glucose within 30 minutes of discharge or transfer to another unit (the time-based intra-procedure POC check may be deferred during short procedures at the discretion of the provider. Laboratory Orders: ??? POC Urine Test (POC7) (if unable to obtain urine, may obtain serum [id number]) All patients with potential for childbearing (menarche to menopause) Medication Orders: Intravenous Line ??? Place #20 gauge IV in non-dominant, non-operative or not otherwise excluded upper extremity unless otherwise ordered by anesthesiologist. ??? Contact responsible anesthesiologist if recommending use of a #22 gauge IV ??? For patients with difficult IV access notify anesthesiologist. ??? For patients with difficult IV access and an implanted infusion port, access the port in accordance with nursing policies. ??? Local Anesthetic to use to initiate IV line: Lidocaine 2% 0.3mL intradermal ONE TIME to numb area of IV catheter insertion PRN. ??? IV Fluid- Adult patients (age 18 years or greater): o Lactated ringer's solution to infuse at 125mL/hr, may discontinue upon discharge from procedure area o If patient is found to have a serum creatinine >2 or history of renal failure, RN may change to NS at 10ml/hr documented in this encounter Plan of Treatment Not on file documented as of this encounter Procedures Procedure Name Priority Date/Time Associated Diagnosis Comments WY ESOPHAGOGASTRODUODENOSCOP Y TRANSORAL DIAGNOSTIC 10/11/2021 1:30 PM CDT Gastroesophageal reflux disease without esophagitis UPPER ENDOSCOPY REPORT 9:27 AM CDT HELICOBACTER PYLORI RAPID UREASE TEST Routine 10/11/2021 9:25 AM CDT Gastroesophageal reflux disease without esophagitis POC , URINE Routine 10/11/2021 9:02 AM CDT documented in this encounter Results * UPPER ENDOSCOPY REPORT (10/11/2021 9:27 AM CDT) Narrative Procedure Note Jerrell Byrd DO - 10/11/2021 9:26 AM CDT [facility] Endoscopy Patient Name: Renata Lei Procedure Date: [...] recommendations were discussed with the patient. Jerrell Byrd DO 10/11/2021 9:26:04 AM Number of Addenda: [address]; [place] [address] Jerrell Byrd DO GI PROCEDURE ORDERAB LES * HELICOBACTER PYLORI RAPID UREASE TEST (10/11/2021 9:25 AM CDT) H. PYLORI RAPID UREASE TEST Negative Negative 10/12/2021 1:23 PM CDT [facility] Tissue ENTIRE STOMACH / Unknown Collection / Unknown 10/11/2021 9:25 AM CDT 10/11/2021 10:32 AM CDT Comment:Gastritis, r/o h.pyl andra Jerrell Byrd DO MICROBIOLOGY - GENER AL ORDERABLES Performing Organization Address [facility] [address]/ZIP Co de Phone Number [facility]# [id number] [address] [place] [address] * POC , URINE (10/11/2021 9:02 AM CDT) Pathologist [facility] HCG QUAL URINE Negative Negative 10/11/2021 9:02 AM CDT [facility] Urine 10/11/2021 9:02 AM CDT 10/11/2021 9:11 AM CDT Jerrell Byrd DO POINT OF CARE TESTIN G Performing Organization Address [facility] [address]/[place]UST Co de Phone Number [facility]# [id number] [address] [place] [address] documented in this encounter Visit Diagnoses Diagnosis Gastroesophageal reflux disease without esophagitis Esophageal reflux documented in this encounter Administered Medications Inactive Administered Medications - up to 3 most recent administrations Medication Order MAR Action Action Date Dose Rate Site lactated ringers infusion IV, at 125 mL/hr, PRE-PROCEDURE CONTINUOUS, Starting on Thu10/11/21 at 0915, Until Thu10/11/21 at 1158, Routine, Pre-Procedure Continue from Pre-Op 10/11/2021 9:15 AM CDT 125 mL/hr New Bag 10/11/2021 9:09 AM CDT 125 mL/hr documented in this encounter Active and Recently Administered Medications Times are shown in CDT. Continuous Medication Order 10/09/2021 10/10/2021 10/11/2021 lactated ringers infusion IV, at 125 mL/hr, PRE-PROCEDURE CONTINUOUS, Starting on Thu10/11/21 at 0915, Until Thu10/11/21 at 1158, Routine, Pre-Procedure 0909 (New Bag - Prov ider: Za Orozco RN)0915 (Continue from Pre-Op - Provider: MIKE Hurtado)0931 (Fluid Volume - Provider: MIKE Hurtado) documented in this encounter Care Teams Internet Site Designer Relationship Specialty [place] [address] [facility] [address] [phone] PCP - General Internal Medicine 04/08/21 documented as of this encounter
--- OUTSIDE RECORDS SUMMARY | 2024-05-29 17:31 | XMS_ITS | Encounter Summary ---
Author Organization [facility] Address [address] [place] [address] Care Team Providers Care Medical Reimbursement Manager Name Role Phone Jai Guadarrama MD Primary Care Provider +1- [phone] Encounter Details Date Type Department Care Team (Late st Contact Info) Description 12/19/2021 Abstract [facility] Internal Medicine Angelica [address] [place] [address] [place] [address] [address] Social History Tobacco Use Types Packs/Day [...] on filedocumented in this encounter Care Teams Medical Reimbursement Manager Relationship Specialty Start [place] [address] [address] [phone] PCP - General Internal Medicine 04/08/21 documented as of this encounter
--- OUTSIDE RECORDS SUMMARY | 2024-05-29 17:31 | XMS_ITS | Encounter Summary ---
Author Organization [facility] Address [address] [place] [address] Care Team Providers Care Satellite Dish Technician Name Role Phone Jai Guadarrama MD Primary Care Provider +1- [phone] Encounter Details Date Type Department Care Team (Late st Contact Info) Description 06/09/2021 Orders Only [facility] Pre Procedure Viral Testing [address] [address] [place] [address] [facility] [address] [place] [address] Contact with and (suspected) exposure to [...] documented as of this encounter Results * 2019 NOVEL CORONAVIRUS (COVID-19) PCR DETECTION (06/10/2021 8:10 AM INTAKE COUNSELOR) COVID-19 PCR NOT DETECTED Not Detected 06/10/19 3:13 PM INTAKE COUNSELOR [facility] PERFORMING LAB [facility] 06/10/2021 3:13 PM INTAKE COUNSELOR [facility] Upper Respiratory ENTIRE NASOPHARYNX / Unknown Collection / Unknown 06/10/2021 8:10 AM INTAKE COUNSELOR 06/10/2021 10:41 AM INTAKE COUNSELOR Narrative [facility] - 06/10/2021 3:13 PM INTAKE COUNSELOR This test has been authorized by the [...] 2019-Novel Coronavirus. Robert Pedersen MD MICROBIOLOGY - [facility] AL ORDERABLES [facility]# [id number] [address] [place] [address] documented in this encounter Visit Diagnoses Diagnosis Contact with and (suspected) exposure to covid-19- Primary documented in this encounter Additional Health Concerns Infection Onset Date Last Indicated Resolved Time R/O COVID-19 06/09/2021 06/10/2021 06/10/2021 3:13 PM INTAKE COUNSELOR documented as of this encounter Care Teams Satellite Dish Technician Relationship Specialty Start [place] [address] [facility] [address] [place] [address] PCP - General Internal Medicine 04/08/21 documented as of this encounter
--- OUTSIDE RECORDS SUMMARY | 2024-05-29 17:31 | XMS_ITS | Encounter Summary ---
Author Organization [facility] Address [address] [place] [address] Care Team Providers Care Store Warehouse Associate Name Role Phone Jai Guadarrama MD Primary Care Provider +- [phone] Reason for Referral * Radiology Services (Routine) - Closed Specialty Diagnoses / Procedures Referred By Rigoberto french Referred To Contact Diagnoses Visit for screening mammogram Procedures MAMMO SCRN BILAT 3D MAGALIE W OR WO CAD CHG SCREENING MAMMOGRAPHY BI 2-VIEW BREAST INC CAD CHG SCREENING DIGITAL BREAST [place] [address] [place] [address] Referral ID Status Reason Start Date Expiration Date Visits Re quested Visits Authorized [id number] Closed 10/23/2021 11/23/2022 1 1 * Radiology Services (Routine) - Closed Specialty Diagnoses / Procedures Referred By Rigoberto french Referred To Contact Diagnoses Visit for screening mammogram Procedures MAMMO SCRN BILAT 3D MAGALIE W OR WO CAD CHG SCREENING MAMMOGRAPHY BI 2-VIEW BREAST INC CAD CHG SCREENING DIGITAL BREAST [place] [address] [place] [address] Referral ID Status Reason Start Date Expiration Date Visits Re quested Visits Authorized [id number] Closed 10/23/2021 11/23/2022 1 1 Reason for Visit * Radiology Services (Routine) - Closed Specialty Diagnoses / Procedures Referred By Rigoberto french Referred To Contact Diagnoses Visit for screening mammogram Procedures MAMMO SCRN BILAT 3D MAGALIE W OR WO CAD CHG SCREENING MAMMOGRAPHY BI 2-VIEW BREAST INC CAD CHG SCREENING DIGITAL BREAST [place] [address] [address] [address] [place] [address] Referral ID Status Reason Start Date Expiration Date Visits Re quested Visits Authorized [id number] Closed 10/23/2021 11/23/2022 1 1 Encounter Details Date Type Department Care Team (Latest Contact Info) Description 10/30/2021 7:13 AM CDT - 10/30/2021 11:59 PM CDT Hospital Encounter [facility] A [address] [place] [address] [place] [address] [address] [address] Discharge Disposition: Home or Self Care Social [...] 7:25 AM CDT Visit for screening mammogram documented in this encounter Results * MAMMO SCRN BILAT 3D MAGALIE [...] CAD DATE: 10/30/2021 7:25 AM DICTATION LOCATION: [facility] HISTORY: Routine yearly screening exam. TECHNIQUE: Low-dose [...] CAD DATE: 10/30/2021 7:25 AM DICTATION LOCATION: [facility] HISTORY: Routine yearly screening exam. TECHNIQUE: Low-dose [...] annual mammography. Jai Guadarrama MD MAMMO ORDERABLES documented in this encounter Visit Diagnoses Diagnosis Visit for screening mammogram Other screening mammogram documented in this encounter Care Teams Store Warehouse Associate Relationship Specialty [place] [address] [facility] [address] [place] [phone] PCP - General Internal Medicine 04/08/21 documented as of this encounter
--- OUTSIDE RECORDS SUMMARY | 2024-05-29 17:31 | XMS_ITS | Encounter Summary ---
Author Organization [facility] Address [address] [place] [address] Care Team Providers Care Axle And Frame Mechanic Name Role Phone Jai Guadarrama MD Primary Care Provider +- [phone] Reason for Referral * Outpatient Services (Routine) - Closed Specialty Diagnoses / Procedures Referred By Contac t Referred To Contact EMG Diagnoses Carpal tunnel syndrome of right wrist Procedures EMG WITH NERVE CONDUCTION Santana Lake MD [address] [facility] [address] [place] [address] [facility] [address] [place] [address] Referral ID Status Reason Start Date Expiration Date Visits Re quested Visits Authorized [id number] Closed 04/01/2022 05/02/2023 1 1 STICAL MATERIAL WORKER Encounter Details Date Type Department Care Team (Late st Contact Info) Description 04/01/[address] [facility] [id number] [facility] [address] [place] [address] Santana Lake MD [address] [facility] [address] [place] [address] Carpal tunnel syndrome of right wrist (Primary Dx) Social History Tobacco Use Types [...] as of this encounter Progress Notes * Santana Lake MD - 04/01/2022 3:45 PM CST EMG ordered STICAL MATERIAL WORKER documented in this encounter Plan of Treatment Not on file documented as of this encounter Results * EMG WITH NERVE CONDUCTION (04/08/2022 12:30 PM ACOUSTICAL MATERIAL WORKER) [facility] - 04/08/2022 12:30 PM ACOUSTICAL MATERIAL WORKER Jai Beach MD ? 04/08/2022 ??1:14 PM EMG/NCS Procedure Report [facility] Date of Service: ??04/08/2022 Patient Name: [...] denervation-reinnervation on the right. Jai Beach MD [facility] Neurology Santana Lake MD NEUROLOGY ORDER [facility] documented in this encounter Visit Diagnoses Diagnosis Carpal tunnel syndrome of right wrist- Primary Carpal tunnel syndrome Carpal tunnel syndrome of right wrist Carpal tunnel syndrome documented in this encounter Care Teams Axle And Frame Mechanic Relationship Specialty Start [place] [address] [facility] [address] [place] [phone] PCP - General Internal Medicine 04/08/21 documented as of this encounter
--- OUTSIDE RECORDS SUMMARY | 2024-05-29 17:31 | XMS_ITS | Encounter Summary ---
Author Organization [facility] Address [address] [place] [address] Care Team Providers Care Line Painting Machine Operator Name Role Phone Jai Guadarrama MD Primary Care Provider +1- [phone] Encounter Details Date Type Department Care Team (Late st Contact Info) Description 04/11/2022 Abstract [facility] [address] [place] [address] Lorene Christianson, JUANJO Social History [...] Coronavirus/COVID-19? No / Unsure 04/08/2022 12:14 PM PIE CRUST MIXER documented as of this encounter Plan of Treatment Not on file documented as of this encounter Visit Diagnoses Not on filedocumented in this encounter Care Teams Line Painting Machine Operator Relationship Specialty Start [place] [address] [place] [phone] PCP - General Internal Medicine 04/08/21 documented as of this encounter
--- OUTSIDE RECORDS SUMMARY | 2024-05-29 17:31 | XMS_ITS | Encounter Summary ---
Author Organization [facility] Address [address] [place] [address] Care Team Providers Care Professor Of Environmental Engineering Name Role Phone Jai Guadarrama MD Primary Care Provider +1- [phone] Encounter Details Date Type Department Care Team (Late st Contact Info) Description 01/22/2022 Orders Only [facility] Pre Procedure Viral Testing [place] [address] [place] [phone] Ale Tomas Contact with and (suspected) exposure to covid-19 Social History Tobacco Use Types Packs/Day Years [...] Procedure Name Priority Date/Time Associated Diagnosis Comments 2019 NOVEL CORONAVIRUS (COVID-19) PCR DETECTION Routine 01/22/2022 4:38 PM CDT Contact with and (suspected) exposure to covid-19 documented in this encounter Results * (ABNORMAL) 2019 NOVEL CORONAVIRUS (COVID-19) PCR DETECTION (01/22/2022 4:38 PM CDT) COVID-19 PCR DETECTED( A) Not Detected 01/22/2022 11:37 PM CDT [facility] PERFORMING LAB [facility] 01/22/2022 11:37 PM CDT [facility] Upper Respiratory ENTIRE NASOPHARYNX / Unknown Collection / Unknown 01/22/2022 4:38 PM CDT 01/22/2022 9:13 PM CDT [facility] 01/22/2022 11:37 PM CDT This test has [...] - [facility] AL ORDERABLES [facility] CLIA# [id number] [address] [place] [address] documented in this encounter Visit Diagnoses Diagnosis Contact with and (suspected) exposure to covid-19 documented in this encounter Additional Health Concerns Infection Onset Date Last Indicated Resolved Time R/O COVID-19 01/22/2022 01/22/2022 01/22/2022 11:3 7 PM CDT COVID-19 01/22/2022 01/22/2022 02/21/2022 1:16 AM CDT documented as of this encounter Care Teams Professor Of Environmental Engineering Relationship Specialty [place] [address] [place] [address] PCP - General Internal Medicine 04/08/21 documented as of this encounter
--- OUTSIDE RECORDS SUMMARY | 2024-05-29 17:31 | XMS_ITS | Encounter Summary ---
Author Organization [facility] Address [address] [place] [address] Care Team Providers Care Chief Business Development Officer Name Role Phone Jai Guadarrama MD Primary Care Provider +- [phone] Encounter Details Date Type Department Care Team (Late st Contact Info) Description 12/17/2021 Abstract [facility] Internal Medicine [facility] [address] [place] [address] Elizabeth Wilson Social History Tobacco Use Types Packs/Day Years [...] on filedocumented in this encounter Care Teams Chief Business Development Officer Relationship Specialty Start [place] [address] [place] [address] PCP - General Internal Medicine 04/08/21 documented as of this encounter
--- OUTSIDE RECORDS SUMMARY | 2024-05-29 17:31 | XMS_ITS | Encounter Summary ---
Author Organization [facility] Address [address] [place] [address] Care Team Providers Care Aged Or Disabled Carer Name Role Phone Jai Guadarrama MD Primary Care Provider [phone]- [phone] Reason for Referral * Radiology Services (Routine) - Closed Specialty Diagnoses / Procedures Referred By Contac t Referred To Contact Diagnoses Morbid obesity with BMI of 40.0-44.9, adult Hypercholesterolemia Gastric reflux Migraine without status migrainosus, not intractable, unspecified migraine type Anxiety Family history of diabetes mellitus in father Procedures XR UPR GI Abelardo Barrios PA [address] [facility] [place] [address] Referral ID Status Reason Start Date Expiration Date V isits Requested Visits Authorized [id number] Closed [facility] CTS 10/02/2021 10/31/2021 1 1 Reason for Visit * Reason Comments Establish Care * Eval and Treat (Routine) - Closed Specialty Diagnoses / Procedures Referred By Contac t Referred To Contact Surgery / General Surgery Diagnoses Morbid obesity with body mass index (BMI) of 40.0 [place] [address] [facility] [address] [place] [address] Jerrell Byrd DO [address] [facility] [address] [place] [address] Referral ID Status Reason Start Date Expiration Date Visits Re quested Visits Authorized [id number] Closed 04/08/2021 04/08/2022 1 1 Encounter Details Date Type Department Care Team (Late st Contact Info) Description 09/11/2021 10:30 AM CDT Office Visit [facility] [place] [address] [facility] [address] [place] [address] Jerrell Byrd DO [address] [place] [address] Morbid obesity with BMI of 40.0-44.9, adult (Primary Dx); Hypercholesterolemia; Gastric reflux; Anxiety; Migraine without status migrainosus, not intractable, unspecified migraine type; Family history of diabetes mellitus in father; Chronic bilateral low back pain without sciatica Social History Tobacco Use Types Packs/Day Years [...] Sign Reading Time Taken Comments Blood Pressure 120/82 09/11/2021 11:00 AM CDT Pulse 71 09/11/2021 11:00 AM CDT Temperature - - Respiratory Rate - - Oxygen Saturation - - Inhaled Oxygen Concentration - - Weight 118.1 kg (260 lb 6.4 oz) 022 11:00 AM CDT Height 162.6 cm (5' 4 ) 09/11/2021 11:0 0 AM CDT Body Mass Index 44.7 09/11/2021 11:00 AM CDT documented in this encounter Progress Notes * Jerrell Byrd DO - 09/11/2021 10:30 AM CDT Images from the original note were not included. [facility] [address] [facility] [place] [address] [place] [address] BARIATRIC HISTORY & PHYSICAL Patient: Renata Lei : 1980 Date: 09/11/2021 Referring Provider Name: Jai Guadarrama MD Patient is being referred for pre-operative consultation for weight loss surgery. CC: Morbid obesity with significant comorbidities. HISTORY OF PRESENT ILLNESS (HPI): Renata Lei is a very pleasant 41 y.o. female who presents with complaints of morbid obesity with significant comorbidities despite multiple failed attempts at weight loss through dietary & exercise programs. Her weight is severely limiting her physical activity & overall lifestyle. She has been obese for 20 years. She is interested in learning about possible surgical options to help her fight against obesity. Aforementioned attempts at weight loss have included a variety of exercise routines, exercise videos, low-fat/low-calorie diets, and commercial weight loss programs such as Weight Watchers. She does not complain of gastroesophageal reflux and she denies dysphagia. Weight History (also, see scanned intake form): 1. When did you start to gain weight? 20s 2. When did you start to feel weight was a problem/How long have you felt you were heavy? 20s 3. Highest & lowest weights as an adult: 270/165 4. When you lose weight, do you regain it?: Yes COMORBIDITIES: gastroesophageal reflux disease and back pain Past Medical History: Diagnosis Date ??? Anxiety ??? Migraine headache ??? Morbid obesity Past Surgical History: Procedure Laterality Date ??? HX KNEE REPLACEMENT Left 1997 ??? HX LAP CHOLECYSTECTOMY 2005 Current Outpatient Medications: ??? nortriptyline (PAMELOR) 25 [...] forAnxiety., Disp: 30 Tablet, Rfl: 0 ??? atovaquone-proguaniL (Malarone) 250-100 mg Tablet, Take 1 Tablet by mouth daily // beginning 2 days prior to visit, during visit, and for 7 days after return, Disp: 20 Tablet, Rfl: 0 ??? escitalopram oxalate (LEXAPRO) 10 mg tablet, Take 10 mg by mouth daily., Disp: , Rfl: ??? topiramate (Topamax) 200 mg tablet, Take 1 Tablet (200 mg) by mouth daily., Disp: 90 Tablet, Rfl: 3 No Known Allergies Social History Socioeconomic History ??? Marital status: Single Spouse name: Not on file ??? Number of children: Not on file ??? Years of education: Not on file ??? Highest education level: Not on file Occupational History ??? Not on file Tobacco Use ??? Smoking status: Former Smoker Quit date: 2018 Years since quittin.3 ??? Smokeless tobacco: Never Used Substance and [...] ??? Diabetes Father ??? High Cholesterol Father Family Status Relation Name Status ??? Father (Not Specified) Review of Systems Constitutional: Negative. Negative for chills and fever. HENT: Negative. Eyes: Negative. Respiratory: Positive for shortness of breath. Cardiovascular: Negative. Gastrointestinal: Positive for heartburn. Genitourinary: Negative. Musculoskeletal: Positive for back pain and joint pain. Skin: Negative. Neurological: Positive for headaches. Negative for dizziness and seizures. Endo/Heme/Allergies: Negative. Psychiatric/Behavioral: The patient is nervous/anxious. TOBACCO COUNSELING She is not a tobacco user. PHYSICAL EXAM BP 120/82 Pulse 71 Ht 5' 4 (1.626 m) Wt 118.1 kg (260 lb 6.4 oz) BMI 44.70 kg/m?? General Appearance: Well-appearing, alert, in no acute distress, well-hydrated, well nourished., morbidly obese. Eyes: Conjunctivae & sclerae normal, pupils equal, round, reactive to light and accommodation and no scleral icterus. Ears/Nose/Mouth/Throat: External ears normal, canals clear, TM's normal, Nares normal. Septum midline. Mucosa normal. No drainage or sinus tenderness., Lips, mucosa, and tongue normal, teeth and gumsnormal, oropharynx normal. Neck: Supple, no adenopathy; thyroid symmetric, normal size, no bruits. Respiratory: Clear to auscultation bilaterally Cardiovascular: Regular rate and rhythm, distal pulses intact bilaterally. Abdomen: Soft, non-tender, non-distended, obese, no hernias palpated Lymph Nodes: No cervical lymphadenopathy. Musculoskeletal: Spine range of motion normal. Muscular strength intact, No joint swelling, deformity, or tenderness. Skin: No lesions noted. Neurologic: Mental status intact, CN II-XII intact, sensation to light touch and pinprick normal. Psychiatric: A&O x 3; Judgement/Insight appropriate Rectal: Deferred exam. DIAGNOSIS/IMPRESSION ICD-10-CM ICD-9-CM 1. Morbid obesity with BMI of 40.0-44.9, adult E66.01 278.01 XR UPR GI Z68.41 V85.41 2. Hypercholesterolemia E78.00 272.0 XR UPR GI 3. Gastric reflux K21.9 530.81 XR UPR GI 4. Anxiety F41.9 300.00 XR UPR GI 5. Migraine without status migrainosus, not intractable, unspecified migraine type G43.909 346.90 XR UPR GI 6. Family history of diabetes mellitus in father Z83.3 V18.0 XR UPR GI 7. Chronic bilateral low back pain without sciatica M54.50 724.2 G89.29 338.29 Body mass index is 44.7 kg/m??. SURGICAL PLAN Consults: Consult bariatric nutrition for 3 months of preoperative supervised diets, consult bariatric psychology, consult primary care physician for medical clearance/recommendation, consult anesthesia/PACE clinic for preoperative clearance Diagnostic Tests: CBC, CMP, Lipid Panel, LFTs, Thyroid Function, Vit B-1, Vit B- 12, Iron Levels, H.Pylori, CXR, EKG, Colonoscopy, EGD, UGI Surgical Procedure: 1. Laparoscopic Sleeve Gastrectomy vs Isabella-en-Y Gastric Bypass, will definitively decide on operation after preoperative workup complete. I have use an anatomical chart to show the postsurgical changes that occur. I discussed expected weight loss with this procedure & I talked about common early and late complications associated with his procedure. This list included but was not limited to leaks, strictures, bleeding, postoperative infection, hernias and small bowel obstructions. I discussed dumping syndrome in detail how dietary choices can worsen this problem. I discussed the need for vitamins and postoperative. I have discussed postsurgical follow-up. I discussed the need for supervised medical weight loss prior to surgery as well as mental health examination evaluation. 2. Preoperative work-up as detailed above All risks and benefits were discussed with the patient including: Intra- operative &/or Immediate Post-operative Risks: ??? : The mortality rate of the sleeve gastrectomy nationwide is 0.3% to 2%. Mortality rate associated with the gastric bypass is slightly higher-0.5 to 3%. ??? Significant Bleeding: Bleeding may occur unexpectedly in the operating room. Bleeding may also occur post-operatively in the days after the operation. This bleeding may be through the intestinal tract at the staple line and result in the passage of blood in the stool. Bleeding may also be unseen inside the abdomen and be diagnosed through other means. A transfusion may be necessary in some circumstances. Re-operation to stop bleeding may be necessary. If the spleen is injured during the surgery, it may need to be removed. ??? Anastomotic Leak: A leak is when the stapled part of the stomach does not heal. Serious complications can result from a leak, including, but not limited to a prolonged hospital stay, more operations, a long period of nothing to eat, prolonged antibiotic requirements, organ failure and . The reported incidence of anastomotic leak nationwide ranges from 0.5% to 3%. ??? Renal Failure: Transient kidney (renal) failure occurs rarely. Irreversible kidney failure has been reported in rare cases. ??? Prolonged Ventilation: A prolonged stay on a ventilator (breathing machine) in the intensive care unit may occur if a patient has severe sleep apnea or after certain significant complications. A temporary tracheostomy may be necessary. ??? Heart Attack: Although a heart attack is possible after a laparoscopic possible open sleeve gastrectomy, it is very rare. Risk factors for heart disease include increased age, diabetes, hypertension, hypercholesterolemia and a family history of heart disease. ??? Prolonged Hospital Stay: Unforeseen complications may result in a prolonged hospital stay. Intensive care admission may be required. ??? Bowel Obstruction (in undergoing the gastric bypass): An obstruction can occur that would require re-operation. An obstruction can occur from a number of causes, such as bleeding, scarring, technical problems or hernia. ??? Deep Vein Thrombosis (DVT)/Pulmonary Embolism: Blood clots that form in the legs, and elsewhere, and break off into the lungs may cause . Given this risk, treatments may be initiated to decrease the risk for the formation of blood clots, including the use of heparin (a medication that thins the blood), special foot and leg stockings, walking soon after surgery and medication at home after discharge from the hospital. Completely eliminating the risks of DVT (clots) altogether is not possible. The risks associated with the medications used to prevent blood clots can include excessive bleeding. Any symptoms of leg swelling, chest pain or sudden shortness of breath should be immediately reported to the surgeon. Rarely, patients develop allergies to heparin, sometimes causing very severe reactions. ??? Other Complications that may be common: Allergic reactions, headaches, itching, medication side-effects, heartburn/reflux, bruising, gout, anesthetic complications, injury to the bowel or vessels, gas bloating, minor wound drainage, wound opening, scar formation, stroke, urinary tract infection, urinary retention, pressure sores, injury to spleen or surrounding structures, and pneumonia. MEET Waite DO Bariatric Surgery documented in this encounter Plan of Treatment Not on file documented as of this encounter Results * XR UPR GI (10/08/2021 8:12 AM CDT) Anatomical Region Laterality Modality Abdomen Computed Radiogr aphy 10/08/2021 8:16 AM CDT Impressions 10/08/2021 8:43 AM CDT IMPRESSION: ?? Small hiatal hernia. DICTATION LOCATION: Location 1 - [facility] Narrative 10/08/2021 8:43 AM CDT EXAMINATION: UPPER GI [...] IMPRESSION: Small hiatal hernia. DICTATION LOCATION: Location - [facility] Abelardo BRAVO DIAGNOSTIC IMAGI NG ORDERABLES documented in this encounter Visit Diagnoses Diagnosis Morbid obesity with BMI of 40.0-44.9, adult- Primary Hypercholesterolemia Pure hypercholesterolemia Gastric reflux Esophageal reflux Anxiety Anxiety state, unspecified Migraine without status migrainosus, not intractable, unspecified migraine type Family history of diabetes mellitus in father Chronic bilateral low back pain without sciatica Morbid obesity with BMI of 40.0-44.9, adult Hypercholesterolemia Pure hypercholesterolemia Gastric reflux Esophageal reflux Migraine without status migrainosus, not intractable, unspecified migraine type Anxiety Anxiety state, unspecified Family history of diabetes mellitus in father documented in this encounter Care Teams Aged Or Disabled Carer Relationship Specialty Start [place] [address] [facility] [address] [place] [address] PCP - General Internal Medicine 04/08/21 documented as of this encounter
--- OUTSIDE RECORDS SUMMARY | 2024-05-29 17:31 | XMS_ITS | Encounter Summary ---
Author Organization [facility] Address [address] [place]: Epic Prelude [place] [address] Care Team Providers Care Machine Stone Polisher Apprentice Name Role Phone Jai Guadarrama MD Primary Care Provider +1- [phone] Encounter Details Date Type Department Care Team (Latest Contact Info) Description 07/25/2021 Travel Social History Tobacco Use Types Packs/Day [...] have Coronavirus / COVID-19? No / Unsure 07/25/2021 1:28 PM REFERRAL MANAGEMENT LIAISON documented as of this encounter Plan of Treatment Not on file documented as of this encounter Visit Diagnoses Not on filedocumented in this encounter Care Teams Machine Stone Polisher Apprentice Relationship Specialty [place] [address] [place] [address] PCP - General Internal Medicine 04/08/21 documented as of this encounter
--- OUTSIDE RECORDS SUMMARY | 2024-05-29 17:31 | XMS_ITS | Encounter Summary ---
Author Organization [facility] Address [address] [place] [address] Care Team Providers Care Pickle Processor Name Role Phone Unavailable Primary Care Provider Unavailabl e Reason for Visit * Reason Comments Establish Care mole on back Encounter Details Date Type Department Care Team (Late st Contact Info) Description 12/11/2020 9:15 AM CDT Office Visit [facility] [address] [address] [place] [address] Cole Stewart MD [address] [place] [address] Changing pigmented skin lesion (Primary Dx) Social History Tobacco Use Types [...] Sign Reading Time Taken Comments Blood Pressure 122/92 12/11/2020 9:13 AM CDT Pulse - - Temperature - - Respiratory Rate - - Oxygen Saturation - - Inhaled Oxygen Concentration - - Weight 113.4 kg (250 lb) 12/11/2020 9:13 AM CDT Height 162.6 cm (5' 4 ) 12/11/2020 9:13 AM CDT Body Mass Index 42.91 12/11/2020 9:13 AM CDT documented in this encounter Progress Notes * Cole Stewart MD - 12/11/2020 9:14 AM CDT [facility] Plastic Surgery DATE:12/11/2020 NAME:Renata Lei :1980 CSN:[id number] HISTORY OF PRESENT ILLNESS: Renata Lei is a 40 y.o. y.o. female who is here for suspicious mole on her upper back. She also has a lesion on her right arm that is changing as well. Chief Complaint Patient presents with ??? Establish Care mole on back Social History Socioeconomic History ??? Marital status: Single Spouse name: Not on file ??? Number of children: Not on file ??? Years of education: Not on file ??? Highest education level: Not on file Occupational History ??? Not on file Tobacco Use ??? Smoking status: Never Smoker Substance and Sexual Activity ??? Alcohol use: Not on file ??? Drug use: Not on file ??? Sexual activity: Not on file Other Topics Concern ??? Not on file Social History Narrative ??? Not on file Social Determinants of Health Financial Resource Strain: ??? Difficulty of Paying Living Expenses: Food Insecurity: ??? Worried About Running Out of Food in the Last Year: ??? Ran Out of Food in the Last Year: Transportation Needs: ??? Lack of Transportation (Medical): ??? Lack of Transportation (Non-Medical): Physical Activity: ??? Days of Exercise per Week: ??? Minutes of Exercise per Session: Stress: ??? Feeling of Stress : Social Connections: ??? Frequency of Communication with Friends and Family: ??? Frequency of Social Gatherings with Friends and Family: ??? Attends Gnosticism Services: ??? Active Member of Clubs or Organizations: ??? Attends Club or Organization Meetings: ??? Marital Status: Intimate Partner Violence: ??? Fear of Current or Ex-Partner: ??? Emotionally Abused: ??? Physically Abused: ??? Sexually Abused: No past medical history on file. No family history on file. Current Outpatient Medications: ??? nortriptyline (PAMELOR) 25 mg capsule, Take 25 mg by mouth., Disp: , Rfl: ??? cetirizine (ZyrTEC) 10 mg tablet, Take 10 mg by mouth daily., Disp: , Rfl: REVIEW OF SYSTEMS: General ROS: negative for weight changes, fever Hematological and Lymphatic ROS: Bleeding problems: no, Blood clots in the past: no Neurological ROS: numbness in the fingers or toes:no, Stroke: no Musculoskeletal: prior surgery OR fractures of the hand:no OBJECTIVE: Physical Exam: BP (!) 122/92 Ht 5' 4 (1.626 m) Wt 113.4 kg (250 lb) BMI 42.91 kg/m?? BLOOD PRESSURE SCREENING BP: (!) 122/92 (12/11/20 0913) BP is normal or controlled. General appearance: ?? alert, well appearing, and in no distress. Chest: ?? Non labored breathing ?? Normal Respitory rate Heart: palpable RRR, no JVD Lymphatic Exam: ?? No upper extremity lymphadenopathy ?? No palpable epitrochlear lymph nodes Gait: normal Strength normal Neurological Exam: subjectively normal sensation to touch Skin: normal, the skin color appeared normal and the finger tips appeared viable Swelling: none Warmth: no warmth Tenderness: none She has a venous filled pigmented lesion on her mid back as well as a right arm thickening over hershoulder. Each measures approximately 1 cm. I think these are nontender to the touch. ASSESSMENT: ICD-10-CM ICD-9-CM 1. Changing pigmented skin lesion L81.9 216.9 1. Multiple surgical and non-surgical options (including no intervention, observation, therapy) were discussed with the patient 2. The risks of the surgical and non-surgical options were discussed 3. Treatments discussed: Punch biopsy in the office ?? 4. The patient and myself believe the best treatment in this particular case is: 1 5 the office under local anesthesia. All of the patients questions were encouraged and answered. The patient will call or office or go to the nearest emergency room if they have any questions, worsening pain, fevers, redness, chills or other concerning questions. TOBACCO COUNSELING She is not a tobacco user. documented in this encounter Plan of Treatment Not on file documented as of this encounter Visit Diagnoses Diagnosis Changing pigmented skin lesion- Primary documented in this encounter
--- OUTSIDE RECORDS SUMMARY | 2024-05-29 17:31 | XMS_ITS | Encounter Summary ---
Author Organization [facility] Address [address] [place]: Epic Prelude [place] [address] Care Team Providers Care Gamewell Operator Name Role Phone Jai Guadarrama MD Primary Care Provider +1- [phone] Encounter Details Date Type Department Care Team (Latest Contact Info) Description 08/23/2021 Travel Social History Tobacco Use Types Packs/Day [...] on filedocumented in this encounter Care Teams Gamewell Operator Relationship Specialty [place] [address] [place] [address] PCP - General Internal Medicine 04/08/21 documented as of this encounter
--- OUTSIDE RECORDS SUMMARY | 2024-05-29 17:31 | XMS_ITS | Encounter Summary ---
Author Organization [facility] Address [address] [place] [address] Care Team Providers Care Eeg Technologist Name Role Phone Jai Guadarrama MD Primary Care Provider +1- [phone] Encounter Details Date Type Department Care Team (Late st Contact Info) Description 03/20/2022 Abstract [facility] [address] [place] [address] Lorene Christianson, RN Social History [...] on filedocumented in this encounter Care Teams Eeg Technologist Relationship Specialty [place] [address] [place] [address] PCP - General Internal Medicine 04/08/21 documented as of this encounter
--- OUTSIDE RECORDS SUMMARY | 2024-05-29 17:31 | XMS_ITS | Encounter Summary ---
Author Organization [facility] Address [address] [place]: Epic Prelude ADT [place] [address] Care Team Providers Care Superintendent Recreation Name Role Phone Unavailable Primary Care Provider Unavailabl e Encounter Details Date Type Department Care Team (Latest Contact Info) Description 07/23/2020 Travel Social History Tobacco Use Types Packs/Day [...] COVID-19? No / Unsure 07/23/2020 1:33 PM SALES ASSOCIATE CASHIER documented as of this encounter Plan of Treatment Not on file documented as of this encounter Visit Diagnoses Not on filedocumented in this encounter
--- OUTSIDE RECORDS SUMMARY | 2024-05-29 17:31 | XMS_ITS | Encounter Summary ---
Author Organization [facility] Address [address] [place]: Epic Prelude ADT [place] [address] Care Team Providers Care Hydraulic Billet Maker Name Role Phone Unavailable Primary Care Provider Unavailabl e Encounter Details Date Type Department Care Team (Latest Contact Info) Description 08/16/2020 Travel Social History Tobacco Use Types Packs/Day [...] have Coronavirus / COVID-19? No / Unsure 08/16/2020 3:04 PM CDT documented as of this encounter Plan of Treatment Not on file documented as of this encounter Visit Diagnoses Not on filedocumented in this encounter
--- OUTSIDE RECORDS SUMMARY | 2024-05-29 17:31 | XMS_ITS | Encounter Summary ---
Author Organization [facility] Address [address] Kaplan: Epic Prelude ADT [place] [address] Care Team Providers Care Finishing Operator Name Role Phone Jai Guadarrama MD Primary Care Provider +1- [phone] Encounter Details Date Type Department Care Team (Latest Contact Info) Description 01/22/2022 Travel Social History Tobacco Use Types Packs/Day [...] documented as of this encounter Care Teams Finishing Operator Relationship Specialty [place] [address] [place] [phone] PCP - General Internal Medicine 04/08/21 documented as of this encounter
--- OUTSIDE RECORDS SUMMARY | 2024-05-29 17:31 | XMS_ITS | Encounter Summary ---
Author Organization [facility] Address [address] [place] [address] Care Team Providers Care Honey Extractor Name Role Phone Jai Guadarrama MD Primary Care Provider +- [phone] Reason for Visit * Auth/Cert Specialty Diagnoses / Procedures Referred By Contact Referred To Contact Perioperative Diagnoses Gastroesophageal reflux disease without esophagitis Procedures HI ESOPHAGOGASTRODUODENOSCOPY TRANSORAL DIAGNOSTIC ESOPHAGOGASTRODUODENOSCOPY [facility] [address] [place] [address] Referral ID Status Reason Start Date Expiration Date Visits Re quested Visits Authorized [id number] 1 1 Encounter Details Date Type Department Care Team (Latest Contact Info) Description 10/11/2021 1:30 PM CDT - 10/11/2021 2:00 PM CDT Surgery [facility] [place] [address] [place] [address] Jerrell Byrd, DO [address] [phone] ESOPHAGOGASTRODUODENOSCOPY Surgery Details Date/Time Status Location OR Service Patient Class Case Class Case Type Trauma Case? 10/11/2021 1:30 PM Posted [facility] 01 Gastroenterology Outpatient Elective No Panel 1 Procedure LRB Anes Op Region Wound Class Comments ESOPHAGOGASTRODUODENOSCOPY N/A General Mouth pt on her way 10-11-21 Surgeon Surgeon Role Service Panel Jerrell Byrd DO Primary Gastroenterology 1 documented in this encounter Social History Tobacco [...] Recorded In the last 10 days, have jason u been in contact with someone who [...] as of this encounter H&P Notes * Byrd, Jerrell Quincy, DO - 10/11/2021 9:04 AM CDT Images from the original note were not included. Patient: Renata Lei : 1980 [facility] [address] , [address] [place] [address] HISTORY & PHYSICAL 10/11/2021 HISTORY OF PRESENT [...] answered. Elias Byrd DO 10/11/2021, 9:04 AM [facility] documented in this encounter Procedure Notes * Jerrell Byrd DO - 10/11/2021 9:26 AM CDTAssociated Order(s): UPPER ENDOSCOPY REPORT [facility] Endoscopy Patient Name: Renata Lei [...] Number of Addenda: [phone] ; [place] [address] documented in this encounter OR Notes * Jasmin-OP - Za Orozco RN - 10/11/2021 9:01 AM CDT Patient/Family discussion included an explanation that: Standard practice for endoscopists at [facility] includes use of an oral bite block to facilitate upper endoscopy and to prevent you from biting onto the scope or yourself during the procedure.This bite block is placed by a [facility] procedure room nurse/aerial survey technician prior to the procedure. Pressure that [...] same day or prompt dental evaluation by [facility] Dental Medicine. * Jasmin-OP - Za Orozco RN - 10/11/2021 9:01 AM CDT Routine Pre-Anesthesia Protocol for GI Lab Procedures [facility] Approved by: [facility] - Medical Executive Committee Approval Date: 08/01/2021 ORDERS ARE ENTERED ???PER PROTOCOL?? Enter the protocol in the patient???s electronic health record using [employer]: .anestprotocolgilab Nursing Orders: Monitoring ??? Obtain and record vital signs on admission to [facility] ??? Continuous vital signs (Non-invasive blood pressure, [...] appropriate, may confirm POC with: Nursing Only [id number] (this lab can be obtained at no [...] unable to obtain urine, may obtain serum [id number]) All patients with potential for childbearing (menarche [...] Procedure Name Priority Date/Time Associated Diagnosis Comments HI ESOPHAGOGASTRODUODENOSCOP Y TRANSORAL DIAGNOSTIC 10/11/2021 1:30 PM CDT Gastroesophageal reflux disease without esophagitis UPPER ENDOSCOPY REPORT 9:27 AM CDT HELICOBACTER PYLORI RAPID UREASE TEST Routine 10/11/2021 9:25 AM CDT Gastroesophageal reflux disease without esophagitis POC , URINE Routine 10/11/2021 9:02 AM CDT documented in this encounter Results * UPPER ENDOSCOPY REPORT (10/11/2021 9:27 AM CDT) Narrative Procedure Note Byrd, Jerrell A, DO - 10/11/2021 9:26 AM CDT [facility] Endoscopy Patient Name: Renata Lei [...] AM Number of Addenda: [phone]; [place] [address] Jerrell Byrd DO GI PROCEDURE ORDERAB LES * HELICOBACTER PYLORI RAPID UREASE TEST (10/11/2021 9:25 AM CDT) H. PYLORI RAPID UREASE TEST Negative Negative 10/12/2021 1:23 PM CDT [facility] Tissue ENTIRE STOMACH / Unknown Collection / Unknown 10/11/2021 9:25 AM CDT 10/11/2021 10:32 AM CDT Comment:Gastritis, r/o h.pyl andra Jerrell Byrd DO MICROBIOLOGY - GENER AL ORDERABLES Performing Organization Address [facility]/ZIP Co de Phone Number [facility] CLIA# [id number] [address] [place] [address] * POC , URINE (10/11/2021 9:02 AM CDT) HCG QUAL URINE Negative Negative 10/11/2021 9:02 AM CDT [facility] Urine 10/11/2021 9:02 AM CDT 10/11/2021 9:11 AM CDT Jerrell Byrd DO POINT OF CARE TESTIN G Performing Organization Address City/[facility]/ZIP Co de Phone Number [facility] [employer] [facility] CLIA# [id number] [address] [place] [address] documented in this encounter Visit Diagnoses Diagnosis Gastroesophageal reflux disease without esophagitis Esophageal reflux Gastroesophageal reflux disease without esophagitis Esophageal reflux [...] Hurtado) documented in this encounter Care Teams Honey Extractor Relationship Specialty [place] [address] [facility] [address] [place] [phone] PCP - General Internal Medicine 04/08/21 documented as of this encounter
--- OUTSIDE RECORDS SUMMARY | 2024-05-29 17:31 | XMS_ITS | Encounter Summary ---
Author Organization [facility] Address [address] Kaplan: Epic Prelude ADT [place] [address] Care Team Providers Care Machine Technician Name Role Phone Jai Guadarrama MD Primary Care Provider +1- [phone] Encounter Details Date Type Department Care Team (Latest Contact Info) Description 04/02/2022 Travel Social History Tobacco Use Types Packs/Day [...] suspected to have Coronavirus/COVID-19? No / Unsure 04/02/2022 10:37 AM B2B SALES MANAGER documented as of this encounter Plan of Treatment Not on file documented as of this encounter Visit Diagnoses Not on filedocumented in this encounter Care Teams Machine Technician Relationship Specialty [place] [address] [place] [phone] PCP - General Internal Medicine 04/08/21 documented as of this encounter
--- OUTSIDE RECORDS SUMMARY | 2024-05-29 17:31 | XMS_ITS | Encounter Summary ---
Author Organization [facility] Address [address] [place] [address] Care Team Providers Care Paper Cleaner Name Role Phone Unavailable Primary Care Provider Unavailabl e Reason for Visit * Reason Comments Procedure Encounter Details Date Type Department Care Team (Latest Contact Info) Description 01/01/2021 10:30 AM CDT Procedure visit [facility] PLASTIC SURGERY [id number] [place] [address] Cole Stewart MD [address] [facility] [address] [place] [address] Changing pigmented skin lesion (Primary [...] PM CDT documented as of this encounter Progress Notes * Cole Stewart MD - 01/02/2021 7:59 AM CDT I d/w the patient the risks associated with A punch biopsy including but not limited to bleeding, infection, scarring and wound dehiscence. They understand that further surgery and or repeat biopsy may be required pending the pathology results ( if needed). Pt understood risks and benefits and wished to proceed. Operative note Punch biopsy back and right upper arm - local anesthetic injected, tolerated well Punch performed and specimen sent to pathology Several nylon sutures placed for wound closure, dressing placed documented in this encounter Plan of Treatment Not on file documented as of this encounter Procedures Procedure Name Priority Date/Time Associated Diagnosis Comments PATHOLOGY Routine 01/01/2021 1:12 PM CDT Changing pigmented skin lesion documented in this encounter Results * PATHOLOGY (01/01/2021 1:12 PM CDT) CASE REPORT Surgical Pathology Report ? Case: [id number] ? Authorizing Provider: ??Cole Stewart MD ?Collected: ? 01/01/2021 01:12 PM ? Ordering Location: ? [facility] Plastic ? Received: ?01/02/2021 07:38 AM ? Surgery - [facility] [place] [address] ? Pathologist: ? Jerrell Crawford MD ? Specimens: ?? A) - Back, upper ? B) - Arm, right ? 01/04/2021 8:34 AM [facility] FINAL DIAGNOSIS Skin, upper back, punch biopsy: - Benign vascular lesion (see comment). Skin, right arm, punch biopsy: - Dermatofibroma. 01/04/2021 8:34 AM [facility] NOSIS COMMENT COMMENT: The upper back punch biopsy shows a benign vascular lesion with dissecting vascular channels in the dermis. This may represent a venous malformation or lymphangioma. 01/04/2021 8:34 AM [facility] GROSS DESCRIPTION The specimens are received in two containers each labeled Renata Lei . Received in the first container additionally labeled upper back is a 0.4 cm circular punch of pink-langston skin excised to a depth of 0.6 cm. The skin surface displays a 0.2 x 0.2 cm red-brown lesion located 0.1 cm from the nearest skin edge. The margin is inked blue. The tissue is bisected and entirely submitted in cassette A1. Received in the second container additionally labeled right arm is a 0.4 cm circular punch of white-langston skin excised to a depth of 0.7 cm. A distinct lesion is not seen on the skin surface. The margin is inked blue. The tissue is bisected and entirely submitted in cassette B1. [facility] 01/04/2021 8:34 AM [facility] MICROSCOPIC DESCRIPTION The slides are labeled [id number] and Renata Lei. The upper back punch biopsy shows dissecting thin walled angulated vascular spaces within the dermis. A D2-40 stain is obtained to evaluate for lymphatic expression; however, the lesion is largely cut through on this deeper level and is non-contributory in determining the vascular type. The right arm punch biopsy shows a bkvpyaqdj-jq-uxnfrthl m proliferation of spindled fibrohistiocytic cells amongst thickened collagen bundles in the dermis. 01/04/2021 8:34 AM [facility] OPERATIVE PROCEDURE punch biopsy of upper back and right arm lesions 01/04/2021 8:34 AM [facility] CLINICAL INFORMATION L81.9 - Changing pigmented skin lesion [ICD-10-CM] 01/04/2021 8:34 AM [facility] COMMENT Special stain and/or immunohistochemical results are interpreted with controls that demonstrate appropriate staining reactions. Note on use of immunocytochemistry reagents: This test was developed and its performance characteristics determined by [facility], Department of Laboratory Medicine. It has [...] part or completely in the following laboratories: [facility], CLIA #[id number] [address] [place] [address] [facility], [place] #[id number] [address] [place] [address] [facility], CLIA #[id number] [address] [place] [address] 01/04/2021 8:34 AM [facility] Tissue (Back, upper) Collection / Unknown 01/01/2021 1:12 PM CDT 01/02/2021 7:38 AM CDT Tissue specimen (specimen) (Arm, right) Collection / Unknown 01/01/2021 1:12 PM CDT 01/02/2021 7:38 AM CDT Cole Stewart MD PATHOLOGY/CYTOLOGY O RDERABLES Performing Organization Address City/State/[facility] Co de Phone Number [facility] LABORATORY SERVICES [facility]# [id number] [address] [facility] [place] [address] documented in this encounter Visit Diagnoses Diagnosis Changing pigmented skin lesion- Primary documented in this encounter
--- OUTSIDE RECORDS SUMMARY | 2024-05-29 17:31 | XMS_ITS | Encounter Summary ---
Author Organization [facility] Address [address] [place] [address] Care Team Providers Care Chartered Accountant Name Role Phone Unavailable Primary Care Provider Unavailabl e Encounter Details Date Type Department Care Team (Late st Contact Info) Description 08/16/2020 4:45 PM CDT Immunization [facility] [address] [address] High priority for 2019 novel coronavirus vaccination [...]
--- OUTSIDE RECORDS SUMMARY | 2024-05-29 17:31 | XMS_ITS | Encounter Summary ---
Author Organization [facility] Address [address] Kaplan: Epic Prelude ADT [place] [address] Care Team Providers Care Clinical Evaluator Name Role Phone Jai Guadarrama MD Primary Care Provider [phone]- [phone] Encounter Details Date Type Department Care Team (Latest Contact Info) Description 06/10/2021 Travel Social History Tobacco Use Types Packs/Day [...] or suspected to have Coronavirus / COVID-19? Yes 06/10/2021 8:09 AM MANAGER SPA documented as of this encounter Plan of Treatment Not on file documented as of this encounter Visit Diagnoses Not on filedocumented in this encounter Additional Health Concerns Infection Onset Date Last Indicated Resolved Time R/O COVID-19 06/09/2021 06/10/2021 06/10/2021 3:13 PM MANAGER SPA documented as of this encounter Care Teams Clinical Evaluator Relationship Specialty [place] [address] [place] [phone] PCP - General Internal Medicine 04/08/21 documented as of this encounter
--- OUTSIDE RECORDS SUMMARY | 2024-05-29 17:31 | XMS_ITS | Encounter Summary ---
Author Organization [facility] Address [address] [place]: Epic Prelude ADT [place] [address] Care Team Providers Care Supervisor [employer] Name Role Phone Jai Guadarrama MD Primary Care Provider +1- [phone] Encounter Details Date Type Department Care Team (Latest Contact Info) Description 12/17/2021 Travel Social History Tobacco Use Types Packs/Day [...] filedocumented in this encounter Care Teams Supervisor [employer] Relationship Specialty [place] [address] [place] [phone] PCP - General Internal Medicine 04/08/21 documented as of this encounter
--- OUTSIDE RECORDS SUMMARY | 2024-05-29 21:37 | XMS_ITS | Encounter Summary ---
Author Organization [facility] Address [address] [place] [address]. [place], [place] [address] [place] [address] Care Team Providers Care Supervising Nurse Name Role Phone Miguel Ángel Olea MD Primary Care Provider [phone] Encounter Details Date Type Department Care Team [...] documented as of this encounter Care Teams Supervising Nurse Relationship Specialty Start Date End Date Miguel Ángel Olea MD [address] [facility] [address] [place] [address] PCP - General FAMILY PRACTICE 07/16/16 documented as of this encounter
--- OUTSIDE RECORDS SUMMARY | 2024-05-29 21:37 | XMS_ITS | Encounter Summary ---
Author Organization [facility] Address [address] [place] [address]. [place], [place] [address] [place] [address] Care Team Providers Care Interior Plant Caretaker Name Role Phone Jun Ivey MD Primary Care Provider Jun Long MD Primary Care Provider Jun Long MD Primary Care Provider Jun Long MD Primary Care Provider Jun Long MD Primary Care Provider Miguel Ángel Blakely MD Primary Care Provider [phone] Encounter Details Date Type Department Care Team (Late st Contact Info) Description 06/22/2015 Abstract [facility] [place] [address] Jun Ivey MD Social History Tobacco Use [...] Comments HEMOGLOBIN, GLYCOSYLATED Routine 06/22/2015 9:52 AM MACHINE I TRIMMER AST/SGOT Routine 06/22/2015 9:52 AM MACHINE I TRIMMER BASIC METABOLIC PANEL Routine 06/22/2015 9:52 AM MACHINE I TRIMMER LIPID PANEL Routine 06/22/2015 9:52 AM MACHINE I TRIMMER ALT/SGPT Routine 06/22/2015 9:52 AM MACHINE I TRIMMER documented in this encounter Results * (ABNORMAL) LIPID PANEL (06/22/2015 9:52 AM MACHINE I TRIMMER) LIPID INTERPRETATION 06/22/2015 4:26 PM MACHINE I TRIMMER [facility] Comment: NIH CONCENSUS REPORT RECOMMENDATIONS: ?ADULT [...] 5.8(H) 0.0 - 4.5 06/22/2015 4:26 PM [facility] CHOLESTEROL 226(H) <200 mg/dL 06/22/2015 4:26 PM [facility] Comment: NOTE: Acetaminophen, N Acetyl p benzoquinone imine (NAPQI), N acetylcysteine (NAC), Metamizole, 4 Aminoantipyrine (4 AAP) and 4 Methylamino antipyrine (4 MAP) at high concentrations can cause falsely low results on Lactate, Uric Acid, Cholesterol, Triglyceride, HDL, and Direct LDL. HDL 39(L) >59 mg/dL 06/22/2015 4:26 PM [facility] DIRECT LDL 164(H) <100 mg/dL 06/22/2015 4:26 PM [facility] NON HDL CHOLESTEROL 187(H) <130 mg/dL 06/22/2015 4:26 PM [facility] Comment: NOTE: WHEN THE TRIGLYCERIDES ARE >200 mg/dL, NON HDL C IS A SECONDARY TARGET OF THERAPY, WITH A GOAL 30 mg/dL HIGHER THAN THE IDENTIFIED LDL C GOAL. TRIGLYCERIDES 115 <150 mg/dL 06/22/2015 4:26 PM [facility] VLDL CALCULATION 23 5 - 55 mg/dL 06/22/2015 4:26 PM [facility] 06/22/2015 9:52 AM MACHINE I TRIMMER 06/22/2015 11:01 AM MACHINE I TRIMMER us Generic Conversion Md [facility] Final R esult [facility] [address] [place] [address], * BASIC METABOLIC PANEL (06/22/2015 9:52 AM MACHINE I TRIMMER) [facility] [place] [facility] GLUCOSE 89 70 - 99 mg/dL 06/22/2015 4:26 PM [facility] BUN 12 8 - 23 mg/dL 06/22/2015 4:26 PM [facility] CREATININE S/P/B 0.63 0.60 - 1.10 mg/dL 06/22/2015 4:26 PM [facility] SODIUM S/P/B 139 136 - 145 mmol/L 06/22/2015 4:26 PM [facility] POTASSIUM S/P/B 4.3 3.5 - 5.1 mmol/L 06/22/2015 4:26 PM [facility] CHLORIDE S/P/B 102 98 - 107 mmol/L 06/22/2015 4:26 PM [facility] CO2 25 22 - 29 mmol/L 06/22/2015 4:26 PM [facility] CALCIUM S/P/B 9.5 8.6 - 10.2 mg/dL 06/22/2015 4:26 PM [facility] ANION GAP 16 8 - 20 06/22/2015 4:26 PM [facility] EGFR NON-AFR. AMER. >60 >60 mL/min/1.7 3m'2 06/22/2015 4:26 PM [facility] EGFR AFR. AMER. >60 >60 mL/min/1.7 3m'2 06/22/2015 4:26 PM [facility] Comment: NOTE: eGFR is not calculated for patients <18 years of age. This is an estimated GFR (CKD EPI) and should not be used for calculating drug doses. 06/22/2015 9:52 AM MACHINE I TRIMMER 06/22/2015 11:01 AM MACHINE I TRIMMER us Generic Conversion Md [facility] Final R esult [facility] [address] [place] [address], [place] [phone] * AST/SGOT (06/22/2015 9:52 AM MACHINE I TRIMMER) AST 13 0 - 32 IU/L 06/22/2015 4:26 PM MACHINE I TRIMMER [facility] SERUM OR PLASMA SPECIMEN / Unknown 06/22/2015 9:52 AM MACHINE I TRIMMER 06/22/2015 11:01 AM MACHINE I TRIMMER us Generic Conversion Md [facility] Performing Organization Address City/[facility]/ZIP Co de Phone Number [facility] [address] [place] [address], * ALT/SGPT (06/22/2015 9:52 AM MACHINE I TRIMMER) ALT 26 0 - 33 IU/L 06/22/2015 4:26 PM [facility] SERUM OR PLASMA SPECIMEN / Unknown 06/22/2015 9:52 AM MACHINE I TRIMMER 06/22/2015 11:01 AM MACHINE I TRIMMER us Generic Calvin Vaughn MD LABORATORY Final R [facility] Performing Organization Address [facility] Co de Phone Number [facility] [address] [place] [address], * HEMOGLOBIN, GLYCOSYLATED (06/22/2015 9:52 AM MACHINE I TRIMMER) HGB A1C 5.0 4.8 - 5.6 % 06/22/2015 3:00 PM MACHINE I TRIMMER [facility] Comment: ADA GUIDELINES 2010 5.7 TO 6.4% INCREASED RISK OF DIABETES > OR = 6.5% CONSISTENT WITH DIABETES ESTIMATED AVG GLUCOSE 97 mg/dL 06/22/2015 3:00 PM [facility] 06/22/2015 9:52 AM MACHINE I TRIMMER 06/22/2015 11:01 AM MACHINE I TRIMMER us Generic Conversion Md [facility] Final R esult [facility] [address] [place] [address], documented in this encounter Visit Diagnoses Diagnosis Encounter for screening for lipoid disorders Screening for lipoid disorders documented in this encounter Care Teams Interior Plant Caretaker Relationship Specialty Start Date End Date Jun Ivey MD PCP - General 07/06/15 07/15/16 Jun Ivey MD PCP - General 07/02/15 07/05/15 Jun Ivey MD PCP - General 06/29/15 07/01/15 Jun Ivey MD PCP - General 06/25/15 06/28/15 Jun Ivey MD PCP - General 06/22/15 06/24/15 Miguel Ángel Olea MD [address] [address] PCP - General FAMILY PRACTICE 07/16/16 documented as of this encounter
--- OUTSIDE RECORDS SUMMARY | 2024-05-29 21:37 | XMS_ITS | Encounter Summary ---
Author Organization [facility] Address [address] [place] [address]. [place] [address] [place] [address] Care Team Providers Care Stamp Classifier Name Role Phone Miguel Ángel Olea MD Primary Care Provider [phone] Reason for Visit * Auth/Cert Specialty Diagnoses / Procedures Referred By Contac t Referred To Contact Diagnoses BRIGHT RED BLOOD PER RECTUM, BLOOD IN STOOL Procedures COLONOSCOPY Referral ID Status Reason Start Date Expiration Date Visits Re quested Visits Authorized [id number] 1 1 Encounter Details Date Type Department Care Team (Late st Contact Info) Description 04/29/2017 9:58 AM CREDIT PRODUCT ANALYST Anesthesia Event [facility] [place], [place] [address] Barry Rodriguez MD [address] [facility] [address] [place] [address] Anesthesia Record Procedure Summary Procedure Name Responsible Anesthesiologist Anesthesia Start Time Anesthesia Stop Time COLONOSCOPY Barry Rodriguez MD 04/29/17 0958 04/29/17 10 28 Events Date Time Event Comment 04/29/2017 0935 0935 AN Anesthesia Prepped 0944 AN BARBER OR BEAUTY SHOP MANAGER Prepped 0958 An Start Patient ID and [...] Postoperative Hydration: euvolemic Complications: no anesthesia complication IT PRODUCT ANALYST * Anesthesia Preprocedure Evaluation - Barry Rodriguez [...] patient of whom consent was obtained. . IT PRODUCT ANALYST documented in this encounter Plan of Treatment [...] 1028, Anesthesia Intra-Op Given 04/29/2017 10:08 AM CREDIT PRODUCT ANALYST 0.2 mg lactated ringers infusion at 10 mL/hr, Intravenous, Continuous, Starting on Thu04/29/17 at 1000, Until Thu04/29/17 at 1316, Infuse at TKO rate, Pre-Op New Bag 04/29/2017 10:01 AM CREDIT PRODUCT ANALYST lidocaine (PF) (XYLOCAINE) 2 % injection Intravenous, PRN, Starting on Thu04/29/17 at 1004, Until Thu04/29/17 at 1028, Anesthesia Intra-Op Given 04/29/2017 10:04 AM CREDIT PRODUCT ANALYST 50 mg propofol (DIPRIVAN) IV bolus Intravenous, PRN, Starting on Thu04/29/17 at 1004, Until Thu04/29/17 at 1028, Anesthesia Intra-Op Given 04/29/2017 10:20 AM CREDIT PRODUCT ANALYST 25 mg Given 04/29/2017 10:17 AM CREDIT PRODUCT ANALYST 25 mg Given 04/29/2017 10:14 AM CREDIT PRODUCT ANALYST 25 mg documented in this encounter Care Teams Stamp Classifier Relationship Specialty Start Date End Date Miguel Ángel Olea MD [address] [address] PCP - General FAMILY PRACTICE 07/16/16 documented as of this encounter
--- OUTSIDE RECORDS SUMMARY | 2024-05-29 21:37 | XMS_ITS | Encounter Summary ---
Author Organization [facility] Address [address] [facility] [place] [address] Care Team Providers Care Technical Maintenance Specialist Name Role Phone Dot Shultz DO Primary Care Provider [phone] Encounter Details Date Type Department Care Team (Latest Contact Info) Description 02/20/2014 1:00 PM CDT - 02/20/2014 1:22 PM CDT Hospital Encounter [facility] MATERNAL/ EVALUATION UNIT [address] [facility] [place] [address] Tarun Hendrickson DO [address] [facility] [address] [address] Discharge Disposition: Home or Self [...] total of 60 minutes was spent in bruj-[id number] counseling. documented in this encounter Plan of [...] Primary documented in this encounter Care Teams Technical Maintenance Specialist Relationship Specialty Start Date End Date Dot Shultz DO [address] [place] [address] PCP - General Family Medicine 02/20/14 01/25/18 documented as of this encounter
--- OUTSIDE RECORDS SUMMARY | 2024-05-29 21:37 | XMS_ITS | Encounter Summary ---
Author Organization [facility] Address [address] [place] [address]. [place], [place] [address] [place] [address] Care Team Providers Care Dental Secretary Name Role Phone Jun Ivey MD Primary Care Provider Miguel Ángel Blakely MD Primary Care Provider [phone] Encounter Details Date Type Department Care Team (Latest Contact Info) Description 07/16/2015 Abstract [facility] Social History Tobacco Use Types [...] filedocumented in this encounter Care Teams Dental Secretary Relationship Specialty Start Date End Date Jun Ivey MD PCP - General 07/06/15 07/15/16 Miguel Ángel Olea MD [address] [place] [address] PCP - General FAMILY PRACTICE 07/16/16 documented as of this encounter
--- OUTSIDE RECORDS SUMMARY | 2024-05-29 21:37 | XMS_ITS | Encounter Summary ---
Author Organization [facility] Address [address] [place] [address]. [place] [address] [place] [address] Care Team Providers Care Chipper Name Role Phone Miguel Ángel Olea MD Primary Care Provider [phone] Encounter Details Date Type Department Care Team (Latest Contact Info) Description 07/17/2016 Abstract [facility] Medical Group Miguel Ángel Olea MD [address] [place] [address] Social History Tobacco Use Types Packs/Day Years [...] B12 / FOLATE Routine 07/17/2016 9:38 AM CASE MAKER HEMOGLOBIN, GLYCOSYLATED Routine 017 9:38 AM CASE MAKER TRIIODOTHYRONINE TOTAL , TT-3 Routine 07/17/2016 9:38 AM CASE MAKER T4 AND TSH Routine 07/17/2016 9:38 AM CASE MAKER COMPREHENSIVE METABOLIC PANEL Routine 07/17/2016 9:38 AM CASE MAKER COMPREHENSIVE METABOLIC PANEL Routine 07/17/2016 9:38 AM CASE MAKER LIPID PANEL Routine 07/17/2016 9:38 AM CASE MAKER LIPID PANEL Routine 07/17/2016 9:38 AM CASE MAKER CBC W/DIFF AUTOMATED Routine 07/17/2016 9:38 AM CASE MAKER VITAMIN D, 25 OH Routine 07/17/2016 9:38 AM CASE MAKER documented in this encounter Results * (ABNORMAL) LIPID PANEL (07/17/2016 9:38 AM CASE MAKER) CHOLESTEROL 248(H) 100 - 199 mg/dL [facility] [...] J Clin Lipidol 2011;5:133-140 07/17/2016 9:38 AM CASE MAKER 07/17/2016 9:38 AM CASE MAKER Narrative [facility] TO EPIC CONVERSION - 07/18/2016 5:11 AM CASE MAKER Result Communication: No patient communication needed at this time Miguel Ángel Olea MD LABORATORY Final Result [facility] TO EPIC CONVERSION * COMPREHENSIVE METABOLIC PANEL (07/17/2016 9:38 AM CASE MAKER) COMMENT [facility] T O EPIC CONVERSION Comment: Result Comment: A hand-written panel/profile was received from your office. In accordance with the [facility] Ambiguous Test Code Policy dated November 2002, we have completed your order by using the closest currently or formerly recognized AMA panel. ??We have assigned Comprehensive Metabolic Panel (14), Test Code #[id number] to this request. ??If this is not the testing you wished to receive on this specimen, please contact the [facility] Client Inquiry/Technical Services Department to clarify the test order. ??We appreciate your business. 07/17/2016 9:38 AM CASE MAKER 07/17/2016 9:38 AM CASE MAKER Narrative [facility] TO EPIC CONVERSION - 07/18/2016 5:11 AM CASE MAKER Result Communication: No patient communication needed at this time Miguel Ángel Olea MD LABORATORY Final Result Performing Organization Address [facility] de Phone Number [facility] TO EPIC CONVERSION * LIPID PANEL (07/17/2016 9:38 AM CASE MAKER) COMMENT [facility] T O EPIC CONVERSION Comment: Result Comment: A hand-written panel/profile was received from your office. In accordance with the [facility] Ambiguous Test Code Policy dated November 2002, we have completed your order by using the closest currently or formerly recognized AMA panel. ??We have assigned Lipid Panel, Test Code #[id number] to this request. If this is not the testing you wished to receive on this specimen, please contact the [facility] Client Inquiry/Technical Services Department to clarify the test order. ??We appreciate your business. 07/17/2016 9:38 AM CASE MAKER 07/17/2016 9:38 AM CASE MAKER Narrative [facility] TO EPIC CONVERSION - 07/18/2016 5:11 AM CASE MAKER Result Communication: No patient communication needed at this time Miguel Ángel Olea MD LABORATORY Final Result Performing Organization Address [facility] de Phone Number [facility] TO EPIC CONVERSION * HEMOGLOBIN, GLYCOSYLATED (07/17/2016 9:38 AM CASE MAKER) HGB A1C 5.5 4.8 - 5.6 % [facility] TO EPIC CONVERSION Comment: Result Comment: ?. ? Pre-diabetes: 5.7 - 6.4 ? Diabetes: >6.4 ? Glycemic control for adults with diabetes: <7.0 07/17/2016 9:38 AM CASE MAKER 07/17/2016 9:38 AM CASE MAKER Narrative [facility] TO EPIC CONVERSION - 07/18/2016 5:11 AM CASE MAKER Result Communication: No patient communication needed at this time Miguel Ángel Olea MD LABORATORY Final Result Performing Organization Address [facility] de Phone Number [facility] TO EPIC CONVERSION * VITAMIN B12 / FOLATE (07/17/2016 9:38 AM CASE MAKER) VITAMIN B12 S/P/B 377 211 - 946 pg/mL [facility] TO EPIC CONVERSION FOLATE 7.0 >3.0 ng/mL [facility] TO EPIC CONVERSION Comment: Result Comment: A serum folate concentration of less than 3.1 ng/mL is considered to represent clinical deficiency. 07/17/2016 9:38 AM CASE MAKER 07/17/2016 9:38 AM CASE MAKER Narrative [facility] TO EPIC CONVERSION - 07/18/2016 5:11 AM CASE MAKER Result Communication: No patient communication needed at this time Miguel Ángel Olea MD LABORATORY Final Result Performing Organization Address [facility] de Phone Number [facility] TO EPIC CONVERSION * CBC W/DIFF AUTOMATED (07/17/2016 9:38 AM CASE MAKER) WBC 9.0 3.4 - 10.8 x10E3/uL [facility] [...] have assigned CBC with Differential/Platelet, Test Code #[id number] to this request. If this is not the testing you wished to receive on this specimen, please contact the [facility] Client Inquiry/ Technical Services Department to clarify the test order. We appreciate your business. 07/17/2016 9:38 AM CASE MAKER 07/17/2016 9:38 AM CASE MAKER Narrative [facility] TO EPIC CONVERSION - 07/18/2016 5:11 AM CASE MAKER Result Communication: No patient communication needed at this time Miguel Ángel Olea MD LABORATORY Final Result [facility] TO EPIC CONVERSION * TRIIODOTHYRONINE TOTAL , TT-3 (07/17/2016 9:38 AM CASE MAKER) TRIPLE PHOSPHATE CRYSTALS 132 71 - 180 ng/dL [facility] TO EPIC CONVERSION 07/17/2016 9:38 AM CASE MAKER 07/17/2016 9:38 AM CASE MAKER Narrative [facility] TO EPIC CONVERSION - 07/18/2016 5:11 AM CASE MAKER Result Communication: No patient communication needed at this time us Miguel Ángel Olea MD LABORATORY Final Result [facility] TO EPIC CONVERSION * COMPREHENSIVE METABOLIC PANEL (07/17/2016 9:38 AM CASE MAKER) [facility] GLUCOSE 94 65 - 99 mg/dL [facility] [...] [facility] TO EPIC CONVERSION 07/17/2016 9:38 AM CASE MAKER 07/17/2016 9:38 AM CASE MAKER Narrative [facility] TO EPIC CONVERSION - 07/18/2016 5:11 AM CASE MAKER Result Communication: No patient communication needed at this time us Miguel Ángel Olea MD LABORATORY Final Result [facility] TO EPIC CONVERSION * (ABNORMAL) VITAMIN D, 25 OH (07/17/2016 9:38 AM CASE MAKER) Pathologist [facility] VITAMIN D 25 HYDROXY S/P/B 16.1(L) 30.0 - 100.0 ng/mL [facility] TO EPIC CONVERSION Comment: Result Comment: Vitamin D deficiency has been defined by the [place] of Medicine and an Endocrine Society practice guideline as a level of serum 25-OH vitamin D less than 20 ng/mL (1,2). The Endocrine Society went on to further define vitamin D insufficiency as a level between 21 and 29 ng/mL (2). 1. IOM ([place] of Medicine). 2010. Dietary reference ?? intakes for calcium and D. [place]: The ?? National [employer]. 2. Cheyenne MF, Beth NC, Verena HERNANDEZ, et al. ?? Evaluation, treatment, and prevention of vitamin D ?? deficiency: an Endocrine Society clinical practice ?? guideline. JCEM. 2010; 96(7):1911-30. 07/17/2016 9:38 AM CASE MAKER 07/17/2016 9:38 AM CASE MAKER Narrative [facility] TO EPIC CONVERSION - 07/18/2016 5:11 AM CASE MAKER Result Communication: No patient communication needed at this time us Miguel Ángel Olea MD LABORATORY Final Result [facility] TO EPIC CONVERSION * T4 AND TSH (07/17/2016 9:38 AM CASE MAKER) TSH 0.833 0.450 - 4.500 uIU/mL [facility] TO EPIC CONVERSION FREE T4 1.38 0.82 - 1.77 ng/dL [facility] TO EPIC CONVERSION 07/17/2016 9:38 AM CASE MAKER 07/17/2016 9:38 AM CASE MAKER Narrative [facility] TO EPIC CONVERSION - 07/18/2016 5:11 AM CASE MAKER Result Communication: No patient communication needed at this time Miguel Ángel Olea MD LABORATORY Final Result [facility] TO EPIC CONVERSION documented in this encounter Visit Diagnoses Not on filedocumented in this encounter Care Teams Chipper Relationship Specialty Start Date End Date Miguel Ángel Olea MD [address] [place] [address] PCP - General FAMILY PRACTICE 07/16/16 documented as of this encounter
--- OUTSIDE RECORDS SUMMARY | 2024-05-29 21:37 | XMS_ITS | Encounter Summary ---
Author Organization [facility] Address [address] [place] [address]. [place], [place] [address] [place] [address] Care Team Providers Care Employment Programs Analyst Name Role Phone Jun Ivey MD Primary Care Provider Vamsi Miguel Ángel Pinon MD Primary Care Provider [phone] Encounter Details Date Type Department Care Team (Late st Contact Info) Description 07/06/2015 Abstract [facility] Physical Therapy [address] [place] [address] Jun Ivey MD Social History [...] leg documented in this encounter Care Teams Employment Programs Analyst Relationship Specialty Start Date End Date Jun Ivey MD PCP - General 07/06/15 07/15/16 Miguel Ángel Olea MD [address] [facility] [address] [place], [place] [id number] PCP - General FAMILY PRACTICE 07/16/16 documented as of this encounter
--- OUTSIDE RECORDS SUMMARY | 2024-05-29 21:37 | XMS_ITS | Encounter Summary ---
Author Organization [facility] Address [address] [place] [address]. [place], [place] [address] [place] [address] Care Team Providers Care Brushing Operator Name Role Phone Miguel Ángel Olea MD Primary Care Provider [phone] Encounter Details Date Type Department Care Team (Latest Contact Info) Description 01/05/2018 Abstract [facility] Medical Group Nav Waddell MD Social History [...] on filedocumented in this encounter Care Teams Brushing Operator Relationship Specialty Start Date End Date Miguel Ángel Olea MD [address] [address] PCP - General FAMILY PRACTICE 07/16/16 documented as of this encounter
--- OUTSIDE RECORDS SUMMARY | 2024-05-29 21:37 | XMS_ITS | Encounter Summary ---
Author Organization [facility] Address [address] [place] [address]. [place], [place] [address] [place] [address] Care Team Providers Care Spot Man Name Role Phone Miguel Ángel Olea MD Primary Care Provider [phone] Encounter Details Date Type Department Care Team (Late st Contact Info) Description 07/16/2016 Abstract [facility] Medical Group Family Medicine - [place] [address] [facility], [address] [place] [address] Miguel Ángel Olea MD [address] [place] [address] [address] [place] [address] Social History Tobacco Use Types [...] ACL/PCL TEAR, DONE AT [facility] IN [place] Family History Father 1. Family history of [...] 3. Hypercholesterolemia (272.0) (E78.00) Plan Headache 1. Mjowckfisa-QQBN-Ixgcgyfg 50-325-40 MG Oral Capsule; TAKE 1 TO [...] For - Manual Activation; Requested for:16Jul2016; Perform:[facility]; Due:15Aug2016;Ordered; For:Hypercholesterolemia; Ordered By:Miguel Ángel Olea; 6. Compr Metabolic Prof ( CMP ); Status:Hold For - Manual Activation; Requested for:16Jul2016; Perform:[facility]; Due:15Aug2016;Ordered; For:Hypercholesterolemia; Ordered By:Miguel Ángel Olea; 7. Free T4 ( Thyroxine ); Status:Hold For - Manual Activation; Requested for:16Jul2016; Perform:. [facility]; Due:15Aug2016;Ordered; For:Hypercholesterolemia; Ordered By:Miguel Ángel Olea; 8. Hemoglobin A1C ( HA1C ); Status:Hold For - Manual Activation; Requested for:16Jul2016; Perform:. [facility]; Due:15Aug2016;Ordered; For:Hypercholesterolemia; Ordered By:Miguel Ángel Olea; 9. Lipid Profile; Status:Hold For - Manual Activation; Requested for:16Jul2016; Perform:. [facility]; Due:15Aug2016;Ordered; For:Hypercholesterolemia; Ordered By:Miguel Ángel Olea; 10. Thyroid Stim Hormone ( TSH ); Status:Hold For - Manual Activation; Requested for:16Jul2016; Perform:[facility]; Due:15Aug2016;Ordered; For:Hypercholesterolemia; Ordered By:Miguel Ángel Olea; 11. Total Triiodothyronine ( T3 ); Status:Hold For - Manual Activation; Requested for:16Jul2016; Perform:. [facility]; Due:15Aug2016;Ordered; For:Hypercholesterolemia; Ordered By:Miguel Ángel Olea; 12. Vitamin B12 And Folate; Status:Hold For - Manual Activation; Requested for:16Jul2016; Perform:[facility]; Due:15Aug2016;Ordered; For:Hypercholesterolemia; Ordered By:Miguel Ángel Olea; 13. Vitamin D 25 - Hydroxy; Status:Hold For - Manual Activation; Requested for:16Jul2016; Perform:[facility]; Due:15Aug2016;Ordered; For:Hypercholesterolemia; Ordered By:Miguel Ángel Olea; Discussion/Summary A&P 1- HPL: Stable. continue current care 2- AR: Stable. continue current care 3- Headache: Stable. continue current care f/u 1 week after labs Signatures Electronically signed by : Miguel Ángel Olea M.D.; Jul 16 2016 2:24PM DIVERSIFIED CROPS II FARMWORKER (Author) documented in this encounter Plan of Treatment Not on file documented as of this encounter Visit Diagnoses Not on filedocumented in this encounter Care Teams Spot Man Relationship Specialty Start Date End Date Miguel Ángel Olea MD [address] [address] PCP - General FAMILY PRACTICE 07/16/16 documented as of this encounter
--- OUTSIDE RECORDS SUMMARY | 2024-05-29 21:37 | XMS_ITS | Encounter Summary ---
Author Organization [facility] Address [address] [place] [address]. [place], [place] [address] [place] [address] Care Team Providers Care Lead Sprinkler Name Role Phone Jun Ivey MD Primary Care Provider Jun Long MD Primary Care Provider Miguel Ángel Blakely MD Primary Care Provider [phone] Encounter Details Date Type Department Care Team (Latest Contact Info) Description 07/05/2015 Abstract [facility] Medical Group Social [...] 8:10 PM CST Verified Results Lipid Profile [id number] 09:52AM Jun Ivey Test Name Result Flag [...] doses. mL/min/1.73m'2 Hemoglobin A1C ( HA1C ) [id number] 09:52MILLICENT Jun Ivey Test Name Result Flag Reference Hemoglobin A1c 5.0 % 4.8-5.6 ADA GUIDELINES 2010 5.7 TO 6.4% INCREASED RISK OF DIABETES > OR = 6.5% CONSISTENT WITH DIABETES Estimated Average Glucose 97 mg/dL Signatures Electronically signed by : Jun Ivey M.D.; Jul 05 2015 8:12PM PRINTED CIRCUIT BOARD DRAFTER (Author) documented in this encounter Plan of Treatment Not on file documented as of this encounter Visit Diagnoses Not on filedocumented in this encounter Care Teams Lead Sprinkler Relationship Specialty Start Date End Date Jun Ivey MD PCP - General 07/06/15 07/15/16 Jun Ivey MD PCP - General 07/02/15 07/05/15 Miguel Ángel Olea MD [address] [address] PCP - General FAMILY PRACTICE 07/16/16 documented as of this encounter
--- OUTSIDE RECORDS SUMMARY | 2024-05-29 21:37 | XMS_ITS | Encounter Summary ---
Author Organization [facility] Address [address] [place] [address]. [place], [place] [address] [place] [address] Care Team Providers Care Electrical Superintendent Name Role Phone Miguel Ángel Olea MD Primary Care Provider [phone] Encounter Details Date Type Department Care Team (Late st Contact Info) Description 01/22/2017 Abstract [facility] Family Medicine - [place] [id number] [facility], [address] [place] [address] Miguel Ángel Olea MD [address] [place] [address] [address] [place] [address] Social History Tobacco Use Types [...] KNEE MENISCAL TEAR, ACL/PCL TEAR, DONE AT [facility] IN [place] Family History Father 1. Family history of [...] (Last Rx:25Jul2016) Requested for: 25Jul2016 Ordered 2. Mlbraxmghh-IYUD-Inlpnsex 50-325-40 MG Oral Tablet; TAKE ONE TO TWO TABLETS BY MOUTH EVERY 4 TO 6 HOURS NEEDED FOR PAIN; Therapy: 10Oct2016 to (Evaluate:14Oct2016) Requested for: 11Nov2016; Last Rx:11Nov2016 Ordered 3. Ergocalciferol 34833 UNIT Oral Capsule; TAKE 1 CAPSULE WEEKLY; Therapy: 25Jul2016 to (Last Rx:25Jul2016) Requested for: 25Jul2016 Ordered 4. Phentermine HCl - 15 MG Oral Capsule; TAKE 1 CAPSULE EVERY MORNING BEFORE BREAKFAST; Therapy: 10Oct2016 to (Evaluate:17Jan2017); Last Rx:[id number] Ordered 5. Topiramate 100 MG Oral Tablet; TAKE 1 TABLET TWICE DAILY; Therapy: 17Jul2016 to (Evaluate:12Nov2017) Requested for: [id number]; Last Rx:[id number] Ordered 6. Topiramate 50 MG Oral Tablet; TAKE 1 TABLET BY TWICE DAILY; Therapy: 10Oct2016 to (Last Rx:[id number]) Requested for: [id number] Ordered 7. ZyrTEC Allergy 10 MG Oral Tablet; TAKE 1 TABLET DAILY DIRECTED; Therapy: 16Jul2016 to (Evaluate:[id number]) Requested for: [id number]; Last Rx:[id number] Ordered Allergies 1. No Known Drug Allergies [...] For: Hemorrhoids; MARY = N; Sent To: [facility] 2. Gastroenterology Referral Outpatient family Hx of colon cancer Status: Need Information - Financial Authorization Requested for: [id number] Ordered; For: Hemorrhoids; Ordered By: Miguel Ángel Olea Performed: Due: [id number] Overweight 3. Phentermine HCl - 15 MG Oral Capsule; TAKE 1 CAPSULE EVERY MORNING BEFORE BREAKFAST Rx By: Miguel Ángel Olea; Dispense: 30 Days ; #:30 Capsule; Refill: 0; For: Overweight; MARY = N; Print Rx 4. CBC W Differential; Status:Hold For - Manual Activation; Requested for:[id number]; Perform:[facility]; Due:21Feb2017;Ordered; For:Overweight; Ordered By:Miguel Ángel Olea; Discussion/Summary A&P 1- Hemorrhoids: exacerbation. meds given 2- weight management: stable. continue current care 3- FH of colon cancer: will get colonoscopy f/u 2 days by phone for lab results Signatures Electronically signed by : Miguel Ángel Olea M.D.; Jan 22 2017 11:31AM MACHINE I TRIMMER (Author) documented in this encounter Plan of Treatment Not on file documented as of this encounter Visit Diagnoses Not on filedocumented in this encounter Care Teams Electrical Superintendent Relationship Specialty Start Date End Date Miguel Ángel Olea MD [address] [address] PCP - General FAMILY PRACTICE 07/16/16 documented as of this encounter
--- OUTSIDE RECORDS SUMMARY | 2024-05-29 21:37 | XMS_ITS | Referral Summary ---
Author Organization [facility] Address [address] [facility] [place] [address] Care Team Providers Care Etl Consultant Name Role Phone Miguel Ángel Olea MD Primary Care Provider [phone] Source Comments [facility],non-owned Affiliates and Associated Physician Practices is amultiple site organization consisting of ambulatory clinics and hospital sitesin [place], [place], [place] and [place]. This disclosure is being madepursuant to the Care Everywhere program and may not contain all information available regarding this patient. Last updated 18.[facility] Encounters Date Type Department Care Team Description 05/05/2024 Telephone [facility] [address]L [address] [place] [address] Robert Sage, JUANJO Kidney/Liver Donor Evaluation from Last 3 Months Medications * Be aware that medications may not be up to date on this document. Alwaysverify current medications with the patient. Medication Sig Dispensed Refills Start Date End Date Status ergocalciferol (DRISDOL) 57821 UNITS capsule Take 50,000 Units by mouth [...] 03/07/2024 Overview (03/07/2024): Lela Lei 1980 Referring Assurance Senior Manager: Listing Date: Dialysis Info: Type: Time: NOD Blood Type: Body mass index is 43.08 kg/m??. ALERTS Supervisor Photocomposition: Past Medical History: Diagnosis Date Allergic rhinitis [...] PPD/Quant Gold: Colonoscopy: Mammo: Pap: Panorex/Dental: SW: CLINICAL SERVICES PROFESSIONAL forms: RD: Items Still Pending: Social History Tobacco Use Types Packs/Day Years Used Date Smoking Tobacco: Former Cigarettes Q uit: 08/27/2017 Smokeless Tobacco: Never Sex and Gender Information Value Date Recorded Sex Assigned at Not on file Gender Identity Not on file Sexual Orientation Not on file Last Filed Vital Signs Vital Sign Reading Time Taken Comments Blood Pressure 127/88 04/28/2018 1:09 PM CLERK ENTRY LEVEL Pulse 101 04/28/2018 1:09 PM CLERK ENTRY LEVEL Temperature 36.3 ??C (97.3 ??F) 04/28/2018 1:09 PM CS T Respiratory Rate - - Oxygen Saturation - - Inhaled Oxygen Concentration - - Weight 113.9 kg (251 lb) 04/28/2018 1:09 PM CLERK ENTRY LEVEL Height 162.6 cm (5' 4 ) 04/28/2018 1:09 PM CLERK ENTRY LEVEL Body Mass Index 43.08 04/28/2018 1:09 PM CLERK ENTRY LEVEL Plan of Treatment Not on file Advance Directives * Full Code (Latest Code Status on File) Date Activated Date Inactivated Comments 02/02/2024 12:40 PM Care Teams Etl Consultant Relationship Specialty Start Date End Date Miguel Ángel Olea MD PCP - General 01/26/18
--- OUTSIDE RECORDS SUMMARY | 2024-05-29 21:37 | XMS_ITS | Encounter Summary ---
Author Organization [facility] Address [address] [place] [address]. [place], [place] [address] [place] [address] Care Team Providers Care Communications Manager Name Role Phone Miguel Ángel Olea MD Primary Care Provider Encounter Details Date Type Department Care Team (Latest Contact Info) Description 04/21/2017 Abstract [facility] Social History Tobacco Use Types [...] on filedocumented in this encounter Care Teams Communications Manager Relationship Specialty Start Date End Date Miguel Ángel Olea MD [address] [address] PCP - General FAMILY PRACTICE 07/16/16 documented as of this encounter
--- OUTSIDE RECORDS SUMMARY | 2024-05-29 21:37 | XMS_ITS | Encounter Summary ---
Author Organization [facility] Address [address] [place] [address] Care Team Providers Care Statistics Manager Name Role Phone Dot Shultz DO Primary Care Provider [phone] Encounter Details Date Type Department Care Team (Latest Contact Info) Description 03/20/2014 9:00 AM PERIANESTHESIA NURSE - 03/20/2014 11:59 PM PERIANESTHESIA NURSE Hospital Encounter [facility] MATERNAL/ EVALUATION UNIT [address] [facility] [place] [id number] Bacilio Anders MD [address] [facility] [address] [place] [address] Discharge Disposition: Home or Self Care Social [...] - COMPLETE Routine 03/20/2014 9 :37 AM PERIANESTHESIA NURSE documented in this encounter Results * IMAGING/RADIOLOGY/XRAY RESULTS ORDER (07/29/2014 5:51 AM CDT) Anatomical Region Laterality Modality Other Narrative 07/29/2014 5:51 AM CDT Ordered by an unspecified provider. Scanned Document IMAGING * SONOGRAM - COMPLETE (03/20/2014 9:37 AM PERIANESTHESIA NURSE) Anatomical Region Laterality Modality Other 03/20/2014 9:37 AM PERIANESTHESIA NURSE Narrative 03/20/2014 10:03 AM PERIANESTHESIA NURSE ? [facility] ? M[facility] & Care Center ?PHONE: ??FAX: Pat. Name: ?LELA LEI. No: ?[id number] Study Date: ?? 03/20/2014 ??9:37am , Age: ? 1980, 33 LMP: ?10/01/2013 GA by LMP: ?24w2d GA by 1st: ?24w3d GA by US: ? 23w5d GA Selected: ??24w3d (From First U) JACEY: ?07/07/2014 Referring MD: ZIA BALES MD Home Teaching Grades 7 And 8 Teacher: ??Bonnie Gao RDMS Hist/Ind: ? Risk of trisomy 21 of 1:111 MEASUREMENTS & AGE ? GROWTH EVALUATION Measurement ??GA ? Range ? Srce %for GA Ratios ----- ---- ------- BPD ??5.7 cm 23w2d (84s0o-40z4q) Hadl BPD 20% FL/BPD 0.77 (0.71 - 0.87) HC ??21.4 cm 23w3d (63p0c-12s1u) Hadl HC ??19% FL/AC ??0.21 (0.20 - 0.24) AC ??20.8 cm 25w3d (70r9w-75h9d) Hadl AC ??68% HC/AC ??1.03 (1.02 - 1.21) FL ?? 4.4 cm 24w3d (98u1m-22u9p) Hadl FL ??49% CI ? 0.72 (0.70 - 0.86) HL ?? 4.3 cm 25w6d (58b6t-73v6f) Juan Manuel HL ??73% GA for sonogram 23w5d (04a4m-51v3i) ?? Weight Estimate: based on (BPD,HC,AC,FL) Hadlock [...] <Electronic Signature> ??03/20/2014 10:04am Bacilio Anders MD [facility] ORDERABLES documented in this encounter Visit Diagnoses Not on filedocumented in this encounter Care Teams Statistics Manager Relationship Specialty Start Date End Date Dot Shultz DO [address] [place] [address] PCP - General Family Medicine 02/20/14 01/25/18 documented as of this encounter
--- OUTSIDE RECORDS SUMMARY | 2024-05-29 21:37 | XMS_ITS | Encounter Summary ---
Author Organization [facility] Address [address] [place] [address]. [place], [place] [address] [place] [address] Care Team Providers Care Grooving Lathe Tender Name Role Phone Miguel Ángel Olea MD Primary Care Provider [phone] Encounter Details Date Type Department Care Team (Latest Contact Info) Description 04/29/2017 Abstract [facility] Medical [facility] Keysha Jackson MD [address] [place] [id number] Social History Tobacco Use Types Packs/Day Years [...] Jackson MD - 04/29/2017 9:47 AM CST [place] [address] Patient Name: LELA LEI Date of : 1980 Med Rec #: [id number] Date of Service: 04/29/2017 Disch Date: HISTORY [...] were discussed with the patient and/or family/personal national account representative. Questions were answered and the patient/family/personal national account representative verbalized understanding and desires to proceed. [...] KNEE MENISCAL TEAR, ACL/PCL TEAR, DONE AT [facility] [place] Family History Mother 1. Family history of fibromyalgia (V17.89) (Z82.69) Father 2. Family history of deep venous thrombosis (V17.49) (Z82.49) 3. Family history of diabetes mellitus (V18.0) (Z83.3) Paternal Grandmother 4. Family history of diabetes mellitus (V18.0) (Z83.3) 5. Family history of lung cancer (V16.1) (Z80.1) ? grandmother - smoker grandfather - non smoker. 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 Paternal Grandfather 6. Family history of diabetes mellitus (V18.0) (Z83.3) 7. Family history of lung cancer (V16.1) (Z80.1) ? grandmother - smoker grandfather - non smoker. 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 Aunt 8. Family history of [...] Hypercholesterolemia; MARY = N; Verified Transmission to [facility]; Last Updated By: KelDoc; 07/25/2016 9:00:35 AM 2. Cetirizine HCl - 10 MG Oral Tablet; TAKE ONE TABLET BY MOUTH ONCE DAILY DIRECTED; Therapy: 03Qsv7923 to (Evaluate:30Kub8729) Requested for: 73Ryy5241; Last Rx:[id number] Ordered Rx By: Miguel Ángel Olea; Dispense: 30 Days ; #:30 TAB; Refill: 2;For: Allergic rhinitis; MARY = N; Verified Transmission to [facility]; Last Updated By: KelDoc; 01/27/2017 8:00:08 AM 3. Ergocalciferol 79884 UNIT CAPS; TAKE 1 CAPSULE WEEKLY; Therapy: 25Jul2016 to (Last Rx:25Jul2016) Requested for: 25Jul2016 Ordered Rx By: Miguel Ángel Olea; Dispense: 0 Days ; #:12 Capsule; Refill: 3;For: Low vitamin D level; MARY = N; Verified Transmission to [facility]; Last Updated By: KelDoc; 07/25/2016 9:00:35 AM 4. Stool Softener CAPS; TAKE CAPSULE PRN; Therapy: (Recorded:11Ynh9316) to Recorded Dispense: 0 Days ; #: Sufficient Capsule; Refill: 0; MARY = N; Record; Last Updated By: Yulia Marin; 04/17/2017 8:46:45 AM 5. Topiramate 100 MG Oral Tablet; TAKE 1 TABLET TWICE DAILY; Therapy: 17Jul2016 to (Evaluate:12Nov2017) Requested for: 39Uch5896; Last Rx:[id number] Ordered Rx By: Miguel Ángel Olea; Dispense: 30 Days ; #:60 Tablet; Refill: 11;For: Headache; MARY = N; Sent To: [facility] Allergies 1. No Known Drug Allergies [...] oriented x 3 Results/Data LC-CBC/Diff Ambiguous Default [id number] 17Jul2016 09:38AM Miguel Ángel Olea Test Name [...] from your office. In accordance with the [email or web address] Ambiguous Test Code Policy dated November 2002, we have assigned CBC with Differential/Platelet, Test Code #124675 to this request. If this is not the testing you wished to receive on this specimen, please contact the [facility] Client Inquiry/ Technical Services Department to clarify the test order. We appreciate your business. LC-Comp. Metabolic Panel ( CMP ) [id number] 15Utn7921 09:38AM Miguel Ángel Olea Test Name Result [...] Keysha Jackson MD; Apr 17 2017 9:37AM LOAN REVIEW ANALYST (Author) Signed by: KEYSHA JACKSON 04/29/2017 09:47 AM documented in this encounter Procedure Notes * Keysha Jackson MD - 04/29/2017 10:25 AM CST [address] [address] Patient Name: LELA LEI Date of : 1980 Med Rec #: [id number] Date of Service: 04/29/2017 Disch Date: Colonoscopy [...] Diagnosis Comments COLONOSCOPY Routine 04/29/2017 12:00 AM LOAN REVIEW ANALYST documented in this encounter Results * Colonoscopy (04/29/2017 12:00 AM LOAN REVIEW ANALYST) 04/29/2017 04/29/2017 Narrative [facility] TO EPIC CONVERSION - 04/29/2017 12:00 AM LOAN REVIEW ANALYST Documented hx of procedure Procedure Note Nav Vaughn MD - 03/21/2018 Documented hx of procedure us Generic Conversion Md [facility] PROCEDURE ORDERABLES Final Result [facility] CONVERSION documented in this encounter Visit Diagnoses Not on filedocumented in this encounter Care Teams Grooving Lathe Tender Relationship Specialty Start Date End Date Miguel Ángel Olea MD [address] [id number] PCP - General FAMILY PRACTICE 07/16/16 documented as of this encounter
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
--- OUTSIDE RECORDS SUMMARY | 2024-05-29 21:37 | XMS_ITS | Encounter Summary ---
Author Organization [facility] Address [address] [facility] [place] [address] Care Team Providers Care Support Engineer Name Role Phone Miguel Ángel Olea MD Primary Care Provider + Reason for Visit * Reason Comments Kidney/Liver Donor Evaluation Encounter Details Date Type Department Care Team (Late st Contact Info) Description 05/05/2024 Telephone [facility] [address]L [address] [place] [phone] Robert Sage RN Kidney/Liver Donor Evaluation Social [...] sent NLDAC application, sent my chart signup SEWER documented in this encounter Plan of Treatment Not on file documented as of this encounter Visit Diagnoses Not on filedocumented in this encounter Care Teams Support Engineer Relationship Specialty Start Date End Date Miguel Ángel Olea MD PCP - General 01/26/18 documented as of this encounter
--- OUTSIDE RECORDS SUMMARY | 2024-05-29 21:37 | XMS_ITS | Patient Health Summary ---
Author Organization [facility] Address [address] [facility] [place] [address] Care Team Providers Care Manager Budget Name Role Phone Miguel Ángel Olea MD Primary Care Provider [phone] Note from [facility],non-owned Affiliates and Associated Physician Practices is amultiple site organization consisting of ambulatory clinics and hospital sitesin [place], [place], [place] and [place]. This disclosure is being madepursuant to the Care Everywhere program and may not contain all information available regarding this patient. Last updated 18.[facility] Medications * Be aware that medications may not be up to date on this document. Alwaysverify current medications with the patient. * ergocalciferol (DRISDOL) 12975 UNITS capsule Take 50,000 Units by mouth [...] Comments Blood Pressure 127/88 04/28/2018 1:09 PM DISTANCE LEARNING PROGRAM COORDINATOR Pulse 101 04/28/2018 1:09 PM DISTANCE LEARNING PROGRAM COORDINATOR Temperature 36.3 ??C (97.3 ??F) 04/28/2018 1:09 PM CS T Respiratory Rate - - Oxygen Saturation - - Inhaled Oxygen Concentration - - Weight 113.9 kg (251 lb) 04/28/2018 1:09 PM DISTANCE LEARNING PROGRAM COORDINATOR Height 162.6 cm (5' 4 ) 04/28/2018 1:09 PM DISTANCE LEARNING PROGRAM COORDINATOR Body Mass Index 43.08 04/28/2018 1:09 PM DISTANCE LEARNING PROGRAM COORDINATOR Procedures * REF LAB-SPECIMEN STATUS REPORT(Performed 02/26/2024) [...] AM CDT Performed at: ??01 - [facility] [address] ??[id number] Property Management Accountant: Serina Tillman PhD, Phone: ??[phone] Sushant Meyers MD LAB - CHEMISTRY ORDERABLES [facility] ACCOUNT BILL [address] [place] [address] * IMAGING/RADIOLOGY/XRAY RESULTS ORDER (06/01/2018 1:24 PM DISTANCE LEARNING PROGRAM COORDINATOR) Only the most recent of3 resultswithin the time period is included. Anatomical Region Laterality Modality Other Narrative 06/01/2018 1:24 PM DISTANCE LEARNING PROGRAM COORDINATOR Ordered by an unspecified provider. Scanned Document IMAGING * SONOGRAM - COMPLETE (03/20/2014 9:37 AM DISTANCE LEARNING PROGRAM COORDINATOR) Only the most recent of2 resultswithin the time period is included. Anatomical Region Laterality Modality Other 03/20/2014 9:37 AM DISTANCE LEARNING PROGRAM COORDINATOR Narrative 03/20/2014 10:03 AM DISTANCE LEARNING PROGRAM COORDINATOR ? [facility] ? M[facility] & Care Center ?PHONE: ??FAX: Pat. Name: ?LELA LEI. No: ?[id number] Study Date: ?? 03/20/2014 ??9:37am , Age: ? 1980, 33 LMP: ?10/01/2013 GA by LMP: ?24w2d GA by 1st: ?24w3d GA by US: ? 23w5d GA Selected: ??24w3d (From First U) JAECY: ?07/07/2014 Referring MD: ZIA BALES MD Automatic Buffer: ??Bonnie Gao RDMS Hist/Ind: ? Risk of trisomy 21 of 1:111 MEASUREMENTS & AGE ? GROWTH EVALUATION Measurement ??GA ? Range ? Srce %for GA Ratios ----- ---- ------- BPD ??5.7 cm 23w2d (40c2y-78j2e) Hadl BPD 20% FL/BPD 0.77 (0.71 - 0.87) HC ??21.4 cm 23w3d (50q4r-43n6r) Hadl HC ??19% FL/AC ??0.21 (0.20 - 0.24) AC ??20.8 cm 25w3d (13m2x-50s7a) Hadl AC ??68% HC/AC ??1.03 (1.02 - 1.21) FL ?? 4.4 cm 24w3d (47u4x-34o3r) Hadl FL ??49% CI ? 0.72 (0.70 - 0.86) HL ?? 4.3 cm 25w6d (11h6e-36n7d) Juan Manuel HL ??73% GA for sonogram 23w5d (31a8c-85m9a) ?? Weight Estimate: based on (BPD,HC,AC,FL) Hadlock [...] Bacilio Anders MD M ORDERABLES Care Teams Manager Budget Relationship Specialty Start Date End Date Miguel Ángel Olea MD PCP - General 01/26/18
--- OUTSIDE RECORDS SUMMARY | 2024-05-29 21:37 | XMS_ITS | Encounter Summary ---
Author Organization [facility] Address [address] [place] [address]. [place], [place] [address] [place] [address] Care Team Providers Care Impregnating Helper Name Role Phone Miguel Ángel Olea MD Primary Care Provider [phone] Encounter Details Date Type Department Care Team (Late st Contact Info) Description 11/17/2016 Abstract [facility] Medical Group Family [place] [address] [facility], [address] [place] [address] Miguel Ángel Olea MD [address] [place] [address] [address] [place] [address] Social History Tobacco Use Types [...] KNEE MENISCAL TEAR, ACL/PCL TEAR, DONE AT [facility] [place] Family History Father 1. Family history of [...] (Last Rx:25Jul2016) Requested for: 25Jul2016 Ordered 2. Ycgnupgfko-KUEV-Lczlvwxq 50-325-40 MG Oral Capsule; TAKE 1 TO 2 CAPSULES EVERY 4 TO 6 HOURS NEEDED FOR PAIN; Therapy: 16Jul2016 to (Evaluate:20Jul2016); Last Rx:16Jul2016 Ordered 3. Jaafbdksdo-AVCS-Biwbtamq 50-325-40 MG Oral Tablet; TAKE ONE TO TWO TABLETS BY MOUTH EVERY 4 TO 6 HOURS NEEDED FOR PAIN; Therapy: 10Oct2016 to (Evaluate:01Qwu2675) Requested for: 11Nov2016; Last Rx:11Nov2016 Ordered 4. Cetirizine HCl - 10 MG Oral Tablet; TAKE ONE TABLET BY MOUTH ONCE DAILY DIRECTED; Therapy: 01Sep2016 to (Evaluate:41Eps4370) Requested for: 01Sep2016; Last Rx:01Sep2016 Ordered 5. Ergocalciferol 09929 UNIT Oral Capsule; TAKE 1 CAPSULE WEEKLY; [...] 11; For: Headache; MARY = N; Sent To:[facility] Knee pain, left 2. [...] Ángel Olea M.D.; Nov 17 2016 1:28PM BUNCH MAKER (Author) documented in this encounter Plan of Treatment Not on file documented as of this encounter Visit Diagnoses Not on filedocumented in this encounter Care Teams Impregnating Helper Relationship Specialty Start Date End Date Miguel Ángel Olea MD [address] [address] PCP - General FAMILY PRACTICE 07/16/16 documented as of this encounter
--- OUTSIDE RECORDS SUMMARY | 2024-05-29 21:37 | XMS_ITS | Encounter Summary ---
Author Organization [facility] Address [address] [place] [address]. [place] [address] [place] [address] Care Team Providers Care Counselor Aide Name Role Phone Miguel Ángel Olea MD Primary Care Provider [phone] Reason for Visit * Reason Comments Other Dx'd with Strep A. H as bodyaches and chills. Encounter Details Date Type Department Care Team (Late st Contact Info) Description 05/10/2019 9:40 AM RATTLE LEAK AND SQUEAK REPAIRER Office Visit [facility] Medical Group Family and Sports Medicine - [place] [address] [place] [address] Miguel Ángel Olea MD [address] [address] Other (Dx'd with Strep A. Has bodyaches [...] Comments Blood Pressure 128/84 05/10/2019 9:45 AM RATTLE LEAK AND SQUEAK REPAIRER Pulse 78 05/10/2019 9:45 AM RATTLE LEAK AND SQUEAK REPAIRER Temperature 37.1 ??C (98.7 ??F) 05/10/2019 9:45 AM CS T Respiratory Rate 21 05/10/2019 9:45 AM RATTLE LEAK AND SQUEAK REPAIRER Oxygen Saturation 97% 05/10/2019 9:45 AM RATTLE LEAK AND SQUEAK REPAIRER Inhaled Oxygen Concentration - - Weight 108 kg (238 lb) 05/10/2019 9:45 AM RATTLE LEAK AND SQUEAK REPAIRER Height 162.6 cm (5' 4 ) 05/10/2019 9:45 AM RATTLE LEAK AND SQUEAK REPAIRER Body Mass Index 40.85 05/10/2019 9:45 AM RATTLE LEAK AND SQUEAK REPAIRER documented in this encounter Progress Notes * [...] by mouth daily., Disp: , Rfl: ??? uvlqrjlskg-rkufuoifnmsxq-puluhmqh 50-325-40 MG tablet, Take 1 tablet by mouth every 4 (four) hours as needed for Pain., Disp: , Rfl: ??? cetirizine 10 MG tablet, Take 10 mg by mouth daily., Disp: , Rfl: ??? Cholecalciferol (VITAMIN D3) 1.25 MG (06242 UT) Tab, Take 1 tablet by mouth [...] Disp: , Rfl: ??? vitamin D2, ergocalciferol, 71415 UNITS capsule, Take 50,000 Units by mouth [...] in medications. MIGUEL ÁNGEL OLEA MD 05/10/2019 LE LEAK AND SQUEAK REPAIRER LE LEAK AND SQUEAK REPAIRER documented in this encounter Plan of Treatment Not on file documented as of this encounter Visit Diagnoses Diagnosis Acute frontal sinusitis, recurrence not specified- Primary documented in this encounter Care Teams Counselor Aide Relationship Specialty Start Date End Date Miguel Ángel Olea MD [address] [address] PCP - General FAMILY PRACTICE 07/16/16 documented as of this encounter
--- OUTSIDE RECORDS SUMMARY | 2024-05-29 21:37 | XMS_ITS | Encounter Summary ---
Author Organization [facility] Address [address] [place] [address]. [place], [place] [address] [place] [address] Care Team Providers Care Php Magento Developer Name Role Phone Miguel Ángel Olea MD Primary Care Provider [phone] Encounter Details Date Type Department Care Team (Latest Contact Info) Description 03/23/2018 Scan [facility] Medical Group Nav Waddell MD [...] on filedocumented in this encounter Care Teams Php Magento Developer Relationship Specialty Start Date End Date Miguel Ángel Olea MD [address] [address] PCP - General FAMILY PRACTICE 07/16/16 documented as of this encounter
--- OUTSIDE RECORDS SUMMARY | 2024-05-29 21:37 | XMS_ITS | Encounter Summary ---
Author Organization [facility] Address [address] [place] [address]. [place] [address] [place] [address] Care Team Providers Care Superintendent Terminal Name Role Phone Miguel Ángel Olea MD Primary Care Provider [phone] Reason for Visit * Reason Comments MRI (SCAN) [facility] 9 MRI BRAIN/BRAINSTEM W/O Encounter Details Date Type Department Care Team (Late Contact Info) Description 05/27/2018 Scan [facility] Scanned, Documents MRI (SCAN) ([facility] 05-27-18 MRI BRAIN/BRAINSTEM W/O) Social History Tobacco [...] on filedocumented in this encounter Care Teams Superintendent Terminal Relationship Specialty Start Date End Date Miguel Ángel Olea MD [address] [facility] [address] [place] [address] PCP - General FAMILY PRACTICE 07/16/16 documented as of this encounter
--- OUTSIDE RECORDS SUMMARY | 2024-05-29 21:37 | XMS_ITS | Encounter Summary ---
Author Organization [facility] Address [address] [place] [address]. [place], [place] [address] [place] [address] Care Team Providers Care Irrigating Pump Operator Name Role Phone Miguel Ángel Olea MD Primary Care Provider [phone] Reason for Visit * Reason Comments Image [...] on filedocumented in this encounter Care Teams Irrigating Pump Operator Relationship Specialty Start Date End Date Miguel Ángel Olea MD [address] [address] PCP - General FAMILY PRACTICE 07/16/16 documented as of this encounter
--- OUTSIDE RECORDS SUMMARY | 2024-05-29 21:37 | XMS_ITS | Encounter Summary ---
Author Organization [facility] Address [address] [place] [address]. [place] [id number] [place] [address] Care Team Providers Care Pelt Dropper Name Role Phone Jun Ivey MD Primary Care Provider Miguel Ángel Blakely MD Primary Care Provider [phone] Encounter Details Date Type Department Care Team (Latest Contact Info) Description 07/09/2015 Abstract [facility] Medical Group Social History Tobacco Use Types [...] Name: Call Patient with results Assigned To: [facility] - NURS[facility] Regarding Patient: Renata Lei, Status: Active Comment: Jun Ivey - 05 Jul 2015 8:10 PM Patient CALL HIGH CHOLESTEROL. OTHERWISE NORMAL NO DIABETES. PROVIDE DIETARY HANDOUTS. RECHECK IN 6-12 MONTHS, Nitza Yuen - 06 Jul 2015 4:21 PM TASK REASSIGNED: Previously Assigned To Jun Ivey Message: Spoke with Renata and advised of lab results and all of PCP comments as stated in task. Pt verbalized understanding and in agreement with incorporating low chol/low fat diet into her lifestyleand repeating lipids in 6-12 months. (Low chol dietary guidelines, lab order mailed to pt.) depRN Signatures Electronically signed by : Nitza Barrera R.N.; Jul 09 2015 1:14PM JUNIOR NETWORK ENGINEER (Author) documented in this encounter Plan of Treatment Not on file documented as of this encounter Visit Diagnoses Not on filedocumented in this encounter Care Teams Pelt Dropper Relationship Specialty Start Date End Date Jun Ivey MD PCP - General 07/06/15 07/15/16 Miguel Ángel Olea MD [address] [address] PCP - General FAMILY PRACTICE 07/16/16 documented as of this encounter
--- OUTSIDE RECORDS SUMMARY | 2024-05-29 21:37 | XMS_ITS | Encounter Summary ---
Author Organization [facility] Address [address] [place] [address]. [place], [place] [address] [place] [address] Care Team Providers Care Upsetter Setter Up Name Role Phone Miguel Ángel Olea MD Primary Care Provider [phone] Encounter Details Date Type Department Care Team (Late st Contact Info) Description 07/25/2016 Abstract [facility] Medical Group Family Medicine [place] [address] [facility], [address] [place] [address] Miguel Ángel Olea MD [address] [place] [address] [address] [place] [address] Social History Tobacco Use Types [...] Comments Blood Pressure 114/70 07/25/2016 8:47 AM GLOBAL PROGRAM MANAGER Pulse 71 07/25/2016 8:47 AM GLOBAL PROGRAM MANAGER Temperature - - Respiratory Rate - - Oxygen Saturation - - Inhaled Oxygen Concentration - - Weight 107.7 kg (237 lb 6.4 oz) 07/25/2016 8:47 AM GLOBAL PROGRAM MANAGER Height - - Body Mass Index 40.75 06/14/2015 1:50 PM GLOBAL PROGRAM MANAGER documented in this encounter Progress Notes [...] MENISCAL TEAR, ACL/PCL TEAR, DONE AT [facility] IN [place] Family History Father 1. Family history of [...] consumes alcohol (V49.89) (Z78.9) Current Meds 1. Diygaxvrlm-MTQA-Hiwtvipn 50-325-40 MG Oral Capsule; TAKE 1 TO [...] For: Hypercholesterolemia; MARY = N; Sent To: [facility] 2. Compr Metabolic Prof ( CMP ); Status:Hold For - Manual Activation; Requested for:25Oct2016; Perform:[facility]; Due:[id number];Ordered; For:Hypercholesterolemia; Ordered By:Miguel Ángel Olea; 3. Lipid Profile; Status:Hold For - Manual Activation; Requested for:25Oct2016; Perform:[facility]; Due:[id number];Ordered; For:Hypercholesterolemia; Ordered By:Miguel Ángel Olea; Low vitamin D level 4. Ergocalciferol 68563 UNIT Oral Capsule; TAKE 1 CAPSULE WEEKLY Rx By: Miguel Ángel Olea; Dispense: 0 Days ; #:12 Capsule; Refill: 3; For: Low vitamin D level; MARY = N; Sent To: [facility] 5. Vitamin D 25 - Hydroxy; Status:Hold For - Manual Activation; Requested for:25Oct2016; Perform:[facility]; Due:[id number];Ordered; For:Low vitamin D level; Ordered By:Miguel Ángel Olea; Discussion/Summary A&P 1- Low Vit D: Stable. continue current care 2- HPL: Stable. continue current care 3- Headache: Stable. continue current care f/u 3 months with labs Signatures Electronically signed by : Miguel Ángel Olea M.D.; Jul 25 2016 9:00AM GLOBAL PROGRAM MANAGER (Author) documented in this encounter Plan of Treatment Not on file documented as of this encounter Visit Diagnoses Not on filedocumented in this encounter Care Teams Upsetter Setter Up Relationship Specialty Start Date End Date Miguel Ángel Olea MD [address] [address] PCP - General FAMILY PRACTICE 07/16/16 documented as of this encounter
--- OUTSIDE RECORDS SUMMARY | 2024-05-29 21:37 | XMS_ITS | Encounter Summary ---
Author Organization [facility] Address [address] [place] [address]. [place], [place] [address] [place] [address] Care Team Providers Care Cna Caregiver Name Role Phone Miguel Ángel Olea MD Primary Care Provider [phone] Reason for Visit * Reason Comments Follow Up Seen in ER for panic attacks. Encounter Details Date Type Department Care Team (Late st Contact Info) Description 12/19/2019 3:40 PM CDT Office Visit [facility] Medical Group Family and Sports Medicine - [place] [address] [place] [address] Miguel Ángel Olea MD [address] [address] Follow Up (Seen in ER for panic [...] file Gets together: Not on file Attends islam service: Not on file Active member of [...] by mouth daily., Disp: , Rfl: ??? bkamltvsyc-jhyivbylvsfyz-dqcetwgo 50-325-40 MG tablet, Take 1 tablet by mouth every 4 (four) hours as needed for Pain., Disp: , Rfl: ??? cetirizine 10 MG tablet, Take 10 mg by mouth daily., Disp: , Rfl: ??? Cholecalciferol (VITAMIN D3) 1.25 MG (57172 UT) Tab, Take 1 tablet by mouth [...] Disp: , Rfl: ??? vitamin D2, ergocalciferol, 37558 UNITS capsule, Take 50,000 Units by mouth [...] unspecified documented in this encounter Care Teams Cna Caregiver Relationship Specialty Start Date End Date Miguel Ángel Olea MD [address] [address] PCP - General FAMILY PRACTICE 07/16/16 documented as of this encounter
--- OUTSIDE RECORDS SUMMARY | 2024-05-29 21:37 | XMS_ITS | Encounter Summary ---
Author Organization [facility] Address [address] [place] [address]. [place] [address] [place] [address] Care Team Providers Care Eyeglass Maker Name Role Phone Miguel Ángel Olea MD Primary Care Provider [phone] Encounter Details Date Type Department Care Team (Latest Contact Info) Description 01/04/2018 Abstract [facility] Medical Group Miguel Ángel Olea MD [address] [place] [id number] Social History Tobacco Use Types Packs/Day Years [...] about 9 months and is bringing us [facility] papers for migraine headache. I explained that [...] KNEE MENISCAL TEAR, ACL/PCL TEAR, DONE AT [facility] IN [place] Family History Mother 1. Family history of fibromyalgia (V17.89) (Z82.69) Father 2. Family history of deep venous thrombosis (V17.49) (Z82.49) 3. Family history of diabetes mellitus (V18.0) (Z83.3) Paternal Grandmother 4. Family history of diabetes mellitus (V18.0) (Z83.3) 5. Family history of lung cancer (V16.1) (Z80.1) ?? grandmother - smoker grandfather - non smoker. sanitation truck driver. Paternal Grandfather 6. Family history of diabetes mellitus (V18.0) (Z83.3) 7. Family history of lung cancer (V16.1) (Z80.1) ?? grandmother - smoker grandfather - non smoker. sanitation truck driver. Aunt 8. Family history of [...] TABLET BY MOUTH ONCE DAILY DIRECTED; Therapy: 47Dei6420 to (Evaluate:79Ozc6704) Requested for: 75Sne8638; Last Rx:[id number] Ordered 3. Ergocalciferol 90440 UNIT CAPS; TAKE 1 CAPSULE WEEKLY; Therapy: 25Jul2016 to (Last Rx:25Jul2016) Requested for: 25Jul2016 Ordered 4. Topiramate 100 MG Oral Tablet; TAKE 1 TABLET TWICE DAILY; Therapy: 17Jul2016 to (Evaluate:12Nov2017) Requested for: 77Fug9075; Last Rx:[id number] Ordered Allergies 1. No Known Drug Allergies [...] Need Information - Financial Authorization Requested for: [id number] Ordered; For: Headache; Ordered By: Miguel Ángel Olea Performed: Due: 42Avh7276 Discussion/Summary A&P 1- Migraine: Neurology referral Signatures Electronically signed by : Miguel Ángel Olea M.D.; Jan 04 2018 10:12AM HIGHWAY MAINTENANCE TECHNICIAN (Author) documented in this encounter Plan of [...] MD LABORATORY Final Result Performing Organization Address [facility] Phone Number [employer] TO EPIC CONVERSION * [...] MD LABORATORY Final Result Performing Organization Address [facility] de Phone Number [employer] [...] on filedocumented in this encounter Care Teams Eyeglass Maker Relationship Specialty Start Date End Date Miguel Ángel Olea MD [address] [facility] [address] '[place] [address] PCP - General FAMILY PRACTICE 07/16/16 documented as of this encounter
--- OUTSIDE RECORDS SUMMARY | 2024-05-29 21:37 | XMS_ITS | Encounter Summary ---
Author Organization [facility] Address [address] [place] [address]. [place], [place] [address] [place] [address] Care Team Providers Care Field Examiner Name Role Phone Miguel Ángel Olea MD Primary Care Provider [phone] Encounter Details Date Type Department Care Team (Late st Contact Info) Description 12/18/2016 Abstract [facility] Medical Group Family Medicine - [place] [address] [facility], [address] [place] [address] Miguel Ángel Olea MD [address] [place] [address] [address] [place] [address] Social History Tobacco Use Types [...] KNEE MENISCAL TEAR, ACL/PCL TEAR, DONE AT [facility] IN [place] Family History Father 1. Family history [...] (Last Rx:25Jul2016) Requested for: 25Jul2016 Ordered 2. Mckliygxzt-EBQV-Wecpymzf 50-325-40 MG Oral Capsule; TAKE 1 TO 2 CAPSULES EVERY 4 TO 6 HOURS NEEDED FOR PAIN; Therapy: 16Jul2016 to (Evaluate:20Jul2016); Last Rx:16Jul2016 Ordered 3. Asvycnyvgu-NUAT-Ympxxqrc 50-325-40 MG Oral Tablet; TAKE ONE TO TWO TABLETS BY MOUTH EVERY 4 TO 6 HOURS NEEDED FOR PAIN; Therapy: 10Oct2016 to (Evaluate:96Yoi8786) Requested for: 11Nov2016; Last Rx:11Nov2016 Ordered 4. Cetirizine HCl - 10 MG Oral Tablet; TAKE ONE TABLET BY MOUTH ONCE DAILY DIRECTED; Therapy: 01Sep2016 to (Evaluate:59Qzu2279) Requested for: 98Npu5676; Last Rx:01Sep2016 Ordered 5. Ergocalciferol 70933 UNIT Oral Capsule; TAKE 1 CAPSULE WEEKLY; Therapy: 25Jul2016 to (Last Rx:25Jul2016) Requested for: 25Jul2016 Ordered 6. Phentermine HCl - 15 MG Oral Capsule; TAKE 1 CAPSULE EVERY MORNING BEFORE BREAKFAST; Therapy: 10Oct2016 to (Evaluate:91Yvi4382); Last Rx:38Fwi0416 Ordered 7. PredniSONE 10 MG Oral Tablet; TAKE 6 TABLETS TODAY, THEN DECREASE BY 1 TABLET EACH DAY UNTIL GONE; Therapy: 10Oct2016 to (Last Rx:10Oct2016) Requested for: 10Oct2016 Ordered 8. Topiramate 100 MG Oral Tablet; TAKE 1 TABLET TWICE DAILY; Therapy: 17Jul2016 to (Evaluate:12Nov2017) Requested for: 11Fps3570; Last Rx:[id number] Ordered 9. Topiramate 50 MG Oral Tablet; [...] 0; For: Sinusitis; MARY = N;Sent To: [facility] 2. PredniSONE 10 MG Oral Tablet; TAKE 6 TABLETS TODAY, THEN DECREASE BY 1 TABLET EACH DAY UNTIL GONE Rx By: Miguel Ángel Olea; Dispense: 0 Days ; #:21 Tablet; Refill: 0; For: Sinusitis; MARY = N; Sent To: [facility] Discussion/Summary A&P 1- Acute sinusitis: stable. continue current care f/u prn Signatures Electronically signed by : Miguel Ángel Olea M.D.; Dec 18 2016 11:46AM OVEN OPERATOR AUTOMATIC (Author) documented in this encounter Plan of Treatment Not on file documented as of this encounter Visit Diagnoses Not on filedocumented in this encounter Care Teams Field Examiner Relationship Specialty Start Date End Date Miguel Ángel Olea MD [address] [address] PCP - General FAMILY PRACTICE 07/16/16 documented as of this encounter
--- OUTSIDE RECORDS SUMMARY | 2024-05-29 21:37 | XMS_ITS | Encounter Summary ---
Author Organization [facility] Address [address] [place] [address]. [place], [place] [address] [place] [address] Care Team Providers Care Bus Escort Name Role Phone Miguel Ángel Olea MD Primary Care Provider [phone] Encounter Details Date Type Department Care Team (Late st Contact Info) Description 10/10/2016 Abstract [facility] Family Medicine - [place] [address] [facility], [address] [place] [address] Miguel Ángel Olea MD [address] [place] [address] [address] [place] [address] Social History Tobacco Use Types [...] TEAR, DONE AT [facility] [place] Family History Father 1. Family history of [...] (Last Rx:25Jul2016) Requested for: 25Jul2016 Ordered 2. Pplgdmfaje-PSJE-Apkwbqjk 50-325-40 MG Oral Capsule; TAKE 1 TO 2 CAPSULES EVERY 4 TO 6 HOURS NEEDED FOR PAIN; Therapy: 16Jul2016 to (Evaluate:20Jul2016); Last Rx:16Jul2016 Ordered 3. Cetirizine HCl - 10 MG Oral Tablet; TAKE ONE TABLET BY MOUTH ONCE DAILY DIRECTED; Therapy: 01Sep2016 to (Evaluate:46Bqg2824) Requested for: 72Pjg0543; Last Rx:33Gce8627 Ordered 4. Ergocalciferol 96574 UNIT Oral Capsule; TAKE 1 CAPSULE WEEKLY; Therapy: 25Jul2016 to (Last Rx:25Jul2016) Requested for: 25Jul2016 Ordered 5. Topiramate 50 MG Oral Tablet; TAKE 1 TABLET BY TWICE DAILY; Therapy: 17Jul2016 to (Last Rx:17Jul2016) Requested for: 17Jul2016 Ordered 6. Transderm-Scop (1.5 MG) 1 MG/3DAYS Transdermal Patch 72 Hour; APPLY 1 PATCH EVERY 3 DAYS; Therapy: 16Jul2016 to (Evaluate:49Rri0823); Last Rx:16Jul2016 Ordered 7. ZyrTEC Allergy 10 MG Oral Tablet; TAKE 1 TABLET DAILY DIRECTED; Therapy: 16Jul2016 to (Evaluate:53Obw0147) Requested for: 31Ljt2986; Last Rx:75Ysl0867 Ordered Allergies 1. No Known Drug Allergies [...] 6; For: Headache; MARY = N;Sent To: [facility] Knee pain, left 2. Phentermine HCl [...] pain, left; MARY = N; Sent To: [facility] Discussion/Summary A&P 1- AR: Stable. continue current care 2- Headache: Stable. continue current care 3- Over weight: Stable. continue current care 4- Knee pain: Stable. continue current care f/u prn Signatures Electronically signed by : Miguel Ángel Olea M.D.; Oct 10 2016 10:00AM GENERAL CLAIMS AGENT (Author) documented in this encounter Plan of Treatment Not on file documented as of this encounter Visit Diagnoses Not on filedocumented in this encounter Care Teams Bus Escort Relationship Specialty Start Date End Date Miguel Ángel Olea MD [address] [address] PCP - General FAMILY PRACTICE 07/16/16 documented as of this encounter
--- OUTSIDE RECORDS SUMMARY | 2024-05-29 21:37 | XMS_ITS | Encounter Summary ---
Author Organization [facility] Address [address] [place] [address]. [place], [place] [address] [place] [address] Care Team Providers Care Telephone Collector Name Role Phone Miguel Ángel Olea MD Primary Care Provider [phone] Reason for Visit * Reason Comments Anxiety Knee Pain left, arthritis, kne e is stiff, bone on bone Encounter Details Date Type Department Care Team (Late st Contact Info) Description 03/08/2020 11:40 AM CDT Office Visit [facility] Medical Group Family and Sports Medicine - [place] 6[address] [place] [address] Miguel Ángel Olea MD [address] [address] Anxiety; Knee Pain (left, arthritis, knee is [...] file Gets together: Not on file Attends adventist service: Not on file Active member of [...] by mouth daily., Disp: , Rfl: ??? mbnomkuoum-kwlzezdqxhmka-ajjrquin 50-325-40 MG tablet, Take 1 tablet by mouth every 4 (four) hours as needed for Pain., Disp: , Rfl: ??? cetirizine 10 MG tablet, Take 10 mg by mouth daily., Disp: , Rfl: ??? Cholecalciferol (VITAMIN D3) 1.25 MG (68118 UT) Tab, Take 1 tablet by mouth [...] 100 MG tablet ??? vitamin D2, ergocalciferol, 01083 UNITS capsule MIGUEL ÁNGEL OLEA MD 03/08/2020 [...] documented as of this encounter Care Teams Telephone Collector Relationship Specialty Start Date End Date Miguel Ángel Olea MD [address] [address] PCP - General FAMILY PRACTICE 07/16/16 documented as of this encounter
--- OUTSIDE RECORDS SUMMARY | 2024-05-29 21:37 | XMS_ITS ---
Author Organization [facility] Address [address] [facility] [place] [address] Care Team Providers Care Photo Print Specialist Name Role Phone Miguel Ángel Olea MD Primary Care Provider [phone] Transplant Episode Kidney Potential Donor [facility] ([place], [place]) [facility] Referred on 01/04/2024 Marked as Active on 01/04/2024 Kidney CoordinatorRobert Sage RN Phone: N/A Fax: N/A Email: N/A Care Team Name Role Phone Fax Email Robert Sage RN Kidney Coordinator N/A N/A N /A Naye Khan Hemodialysis Charge Nurse N/A N/A N/A Events Pre-Donation Referred: 01/04/2024
--- OUTSIDE RECORDS SUMMARY | 2024-05-29 21:37 | XMS_ITS | Encounter Summary ---
Author Organization [facility] Address [address] [facility] [place] [address] Care Team Providers Care Reconsignment Clerk Name Role Phone Dot Shultz DO Primary Care Provider [phone] Encounter Details Date Type Department Care Team (Latest Contact Info) Description 02/20/2014 1:23 PM CDT - 02/20/2014 11:59 PM CDT Hospital Encounter [facility] MATERNAL/ EVALUATION UNIT [facility] [address] [place] [address] Tarun Hendrickson DO [address] [facility] [address] [address] Discharge Disposition: Home or Self [...] CDT Narrative 02/20/2014 6:08 PM CDT ? [facility] ?PHONE: ??FAX: Pat. Name: ?LELA LEI Pat. No: ?[id number] Study Date: ?? 02/20/2014 ??3:00pm , Age: ? 1980, 33 LMP: ?10/01/2013 GA by LMP: ?20w2d GA by US: ? 20w3d GA Selected: ??20w3d (Sonographic) JACEY: ?07/07/2014 Referring MD: ZIA BALES MD Psychotherapist: ??Carmela Ruiz RDMS Hist/Ind: ? Risk of trisomy 21 of 1:111 ?Anatomic survey MEASUREMENTS & AGE ? GROWTH EVALUATION Measurement ??GA ? Range ? Srce %for GA Ratios ----- ---- ------- BPD ??4.7 cm 20w2d ([id number]) Hadl BPD 46% FL/BPD 0.74 HC ??18.1 cm 20w4d (28v6y-30k5t) Hadl HC ??52% FL/AC ??0.22 AC ??15.8 cm 20w6d (86k6e-98o9y) Hadl AC ??60% HC/AC ??1.15 (1.06 - 1.24) FL ?? 3.5 cm 21w0d (26t5o-60c4n) Hadl FL ??64% CI ? 0.72 (0.70 - 0.86) HL ?? 3.4 cm 21w5d (32f1b-32q2f) Juan Manuel HL ??71% GA for sonogram 20w3d (86n7v-65n5c) ?? Weight Estimate: based on (BPD,HC,AC,FL) Hadlock [...] on filedocumented in this encounter Care Teams Reconsignment Clerk Relationship Specialty Start Date End Date Dot Shultz DO [address] [place] [phone] PCP - General Family Medicine 02/20/14 01/25/18 documented as of this encounter
--- OUTSIDE RECORDS SUMMARY | 2024-05-29 21:37 | XMS_ITS | Encounter Summary ---
Author Organization [facility] Address [address] [place] [address]. [place], [place] [address] [place] [address] Care Team Providers Care Quirk Sander Name Role Phone Miguel Ángel Olea MD Primary Care Provider [phone] Reason for Visit * Reason Onset Date Comments Medication 07/06/2018 Encounter Details Date Type Department Care Team (Late st Contact Info) Description 07/06/2018 Telephone [facility] Medical Group Family and Sports Medicine - [place] [address] [place] [phone] Miguel Ángel Olea MD [address] [phone]- Medication Social History Tobacco Use Types Packs/Day [...] pretreat? Jazz on [place] in . MBLY MACHINE OFFBEARER documented in this encounter Plan of Treatment Not on file documented as of this encounter Visit Diagnoses Diagnosis Examination, medical, general- Primary Unspecified general medical examination documented in this encounter Care Teams Quirk Sander Relationship Specialty Start Date End Date Miguel Ángel Olea MD [address] [address] PCP - General FAMILY PRACTICE 07/16/16 documented as of this encounter
--- OUTSIDE RECORDS SUMMARY | 2024-05-29 21:37 | XMS_ITS | Encounter Summary ---
Author Organization [facility] Address [address] [place] [address]. [place], [place] [address] [place] [address] Care Team Providers Care Tearer Name Role Phone Miguel Ángel Olea MD Primary Care Provider [phone] Encounter Details Date Type Department Care Team (Latest Contact Info) Description 07/18/2016 Abstract [facility] Group Social History Tobacco Use Types [...] on filedocumented in this encounter Care Teams Tearer Relationship Specialty Start Date End Date Miguel Ángel Olea MD [address] [address] PCP - General FAMILY PRACTICE 07/16/16 documented as of this encounter
--- OUTSIDE RECORDS SUMMARY | 2024-05-29 21:37 | XMS_ITS | Encounter Summary ---
Author Organization [facility] Address [address] [place] [address]. [place] [address] [place] [address] Care Team Providers Care Voice Professor Name Role Phone Miguel Ángel Olea MD Primary Care Provider [phone] Reason for Visit * Reason Onset Date Comments Other 03/08/2020 MRI Encounter Details Date Type Department Care Team (Late st Contact Info) Description 03/08/2020 Telephone [facility] Medical Group Family and Sports Medicine - [place] [address] [place] [address] Miguel Ángel Olea MD [address] [place] [address] [place] [address] Other (MRI) Social History Tobacco Use Types [...] - 03/08/2020 12:18 PM CDT Glenis from [facility] Scheduling called to say Renata has [place] insurance, so she will not be able to have MRI there. documented in this encounter Plan of Treatment Not on file documented as of this encounter Visit Diagnoses Not on filedocumented in this encounter Additional Health Concerns Assessment Noted Time PHQ-9 Depression Total Score: 2 03/08/20 20 11:36 AM CDT documented as of this encounter Care Teams Voice Professor Relationship Specialty Start Date End Date Miguel Ángel Olea MD [address] [address] PCP - General FAMILY PRACTICE 07/16/16 documented as of this encounter
--- OUTSIDE RECORDS SUMMARY | 2024-05-29 21:37 | XMS_ITS | Clinical Summary ---
Author Organization [facility] Address [address] [facility] [place] [address] Care Team Providers Care Head Greenskeeper Name Role Phone Miguel Ángel Olea MD Primary Care Provider [phone] Source Comments [facility],non-owned Affiliates and Associated Physician Practices is amultiple site organization consisting of ambulatory clinics and hospital sitesin [place], [place], [place] and [place]. This disclosure is being madepursuant to the Care Everywhere program and may not contain all information available regarding this patient. Last updated 18.[facility] Medications * Be aware that medications may not be up to date on this document. Alwaysverify current medications with the patient. Medication Sig Dispensed Refills Start Date End Date Status ergocalciferol (DRISDOL) 71194 UNITS capsule Take 50,000 Units by mouth [...] 03/07/2024 Overview (03/07/2024): Lela Lei 1980 Referring Retail Service Lead Merchandiser: Listing Date: Dialysis Info: Type: Time: NOD Blood Type: Body mass index is 43.08 kg/m??. ALERTS [place]: Past Medical History: Diagnosis Date Allergic rhinitis [...] PPD/Quant Gold: Colonoscopy: Mammo: Pap: Panorex/Dental: SW: ORDER EDITOR forms: RD: Items Still Pending: Encounters Date Type Department Care Team Description 05/05/2024 Telephone [facility]L [address] [facility], [place] [id number] Robert Sage, RN Kidney/Liver Donor Evaluation from [...] Comments Blood Pressure 127/88 04/28/2018 1:09 PM RISK CONTROL SPECIALIST Pulse 101 04/28/2018 1:09 PM RISK CONTROL SPECIALIST Temperature 36.3 ??C (97.3 ??F) 04/28/2018 1:09 PM CS T Respiratory Rate - - Oxygen Saturation - - Inhaled Oxygen Concentration - - Weight 113.9 kg (251 lb) 04/28/2018 1:09 PM RISK CONTROL SPECIALIST Height 162.6 cm (5' 4 ) 04/28/2018 1:09 PM RISK CONTROL SPECIALIST Body Mass Index 43.08 04/28/2018 1:09 PM RISK CONTROL SPECIALIST Plan of Treatment Health Maintenance Due Date [...] Inactivated Comments 02/02/2024 12:40 PM Care Teams Head Greenskeeper Relationship Specialty Start Date End Date Miguel Ángel Olea MD PCP - General 01/26/18
--- OUTSIDE RECORDS SUMMARY | 2024-05-29 21:37 | XMS_ITS | Encounter Summary ---
Author Organization [facility] Address [address] [place] [address]. [place], [place] [address] [place] [address] Care Team Providers Care Call Manager Name Role Phone Miguel Ángel Olea MD Primary Care Provider [phone] Reason for Visit * Auth/Cert Specialty Diagnoses / Procedures Referred By Contac t Referred To Contact Diagnoses BRIGHT RED BLOOD PER RECTUM, BLOOD IN STOOL Procedures COLONOSCOPY Referral ID Status Reason Start Date Expiration Date Visits Re quested Visits Authorized [id number] 1 1 Encounter Details Date Type Department Care Team (Latest Contact Info) Description 04/29/2017 8:56 AM DELIVERY CREW WORKER - 04/29/2017 11:01 AM DELIVERY CREW WORKER Hospital Encounter [facility] [place] [address] Pancho Jackson MD [address] [facility] [address] [place] [address] Discharge Disposition: Home or Self Care (Routine [...] Comments Blood Pressure 103/72 04/29/2017 10:50 AM DELIVERY CREW WORKER Pulse 66 04/29/2017 10:50 AM DELIVERY CREW WORKER Temperature 37.1 ??C (98.7 ??F) 04/29/2017 9:19 AM CS T Respiratory Rate 19 04/29/2017 10:50 AM DELIVERY CREW WORKER Oxygen Saturation 98% 04/29/2017 10:50 AM DELIVERY CREW WORKER Inhaled Oxygen Concentration - - Weight 97.5 kg (215 lb) 04/21/2017 12:01 AM DELIVERY CREW WORKER Height 162.6 cm (5' 4 ) 04/21/2017 12:01 AM DELIVERY CREW WORKER Body Mass Index 36.9 04/21/2017 12:01 AM DELIVERY CREW WORKER documented in this encounter Discharge Instructions * Discharge Instructions* Pancho Jackson MD - 04/29/2017 10:25 AM DELIVERY CREW WORKER Images from the original note were not [...] belly pain. Where can I learn more? [place] Gastroenterological Association http://www.gastro.org/info_for_patients/ceqaaavrpzy-201-fpxu-jt-h-zqvjpwavwjh [place] Society for Gastrointestinal Endoscopy http://www.asge.org/patients/patients.aspx?ea=928 National Digestive Diseases Information Clearinghouse http://digestive.niddk.nih.gov/ddiseases/pubs/colonoscopy/ Last [...] for you. Copyright Copyright ?? 2017 Lucia [employer] and its affiliates and/or licensors. All rights reserved. VERY CREW WORKER documented in this encounter Medications at Time [...] (two) times daily. 03/08/2020 vitamin D2, ergocalciferol, 81053 UNITS capsule Take 50,000 Units by mouth [...] were discussed with the patient and/or family/personal compliance representative dealer. Questions were answered and the patient/family/personal compliance representative dealer verbalized understanding and desires to proceed. Referred [...] KNEE MENISCAL TEAR, ACL/PCL TEAR, DONE AT [facility] IN [place] Family History Mother 1. Family history of fibromyalgia (V17.89) (Z82.69) Father 2. Family history of deep venous thrombosis (V17.49) (Z82.49) 3. Family history of diabetes mellitus (V18.0) (Z83.3) Paternal Grandmother 4. Family history of diabetes mellitus (V18.0) (Z83.3) 5. Family history of lung cancer (V16.1) (Z80.1) ?? grandmother - smoker grandfather - non smoker. class a truck driver. Paternal Grandfather 6. Family history of diabetes mellitus (V18.0) (Z83.3) 7. Family history of lung cancer (V16.1) (Z80.1) ?? grandmother - smoker grandfather - non smoker. class a truck driver. Aunt 8. Family history of [...] Hypercholesterolemia; MARY = N; Verified Transmission to [facility]; Last Updated By: Anuel Agorique; 07/25/2016 9:00:35 AM 2. Cetirizine HCl - 10 MG Oral Tablet; TAKE ONE TABLET BY MOUTH ONCE DAILY DIRECTED; Therapy: [id number] to (Evaluate:21Hei2411) Requested for: [id number]; Last Rx:[id number] Ordered Rx By: Miguel Ángel Olea; Dispense: 30 Days ; #:30 TAB; Refill: 2;For: Allergic rhinitis; MARY = N; Verified Transmission to [facility]; Last Updated By: Zilyo; 01/27/2017 8:00:08 AM 3. Ergocalciferol 57761 UNIT CAPS; TAKE 1 CAPSULE WEEKLY; Therapy: 25Jul2016 to (Last Rx:25Jul2016) Requested for: 25Jul2016 Ordered Rx By: Miguel Ángel Olea; Dispense: 0 Days ; #:12 Capsule; Refill: 3;For: Low vitamin D level; MARY = N;Verified Transmission to [facility]; Last Updated By: Zilyo; 07/25/2016 9:00:35 AM 4. Stool Softener CAPS; TAKE CAPSULE PRN; Therapy: (Recorded:17Apr2017) to Recorded Dispense: 0 Days ; #: Sufficient Capsule; Refill: 0; MARY = N; Record; Last Updated By: Yulia Marin; 04/17/2017 8:46:45 AM 5. Topiramate 100 MG Oral Tablet; TAKE 1 TABLET TWICE DAILY; Therapy: 17Jul2016 to (Evaluate:12Nov2017) Requested for: [id number]; Last Rx:[id number] Ordered Rx By: Miguel Ángel Olea; Dispense: 30 Days ; #:60 Tablet; Refill: 11;For: Headache; MARY = N; Sent To: [facility] Allergies 1. No Known Drug Allergies [...] oriented x 3 Results/Data LC-CBC/Diff Ambiguous Default [id number] 17Jul2016 09:38AM Miguel Ángel Olea Test Name [...] have assigned CBC with Differential/Platelet, Test Code #[id number] to this request. If this is not the testing you wished to receive on this specimen, please contact the [facility] Client Inquiry/ Technical Services Department to clarify the test order. We appreciate your business. LC-Comp. Metabolic Panel ( CMP ) [id number] 17Jul2016 09:38AM Miguel Ángel Olea Test Name [...] Pancho Jackson MD; Apr 17 2017 9:37AM DELIVERY CREW WORKER (Author) VERY CREW WORKER documented in this encounter OR Notes * [...] previously scheduled. -Follow-up in clinic as needed VERY CREW WORKER documented in this encounter Plan of Treatment Not on file documented as of this encounter Procedures Procedure Name Priority Date/Time Associated Diagnosis Comments COLONOSCOPY 04/29/2017 9:43 AM DELIVERY CREW WORKER BRIGHT RED BLOOD PER RECTUM, BLOOD IN [...] rate, Pre-Op New Bag 04/29/2017 10:01 AM DELIVERY CREW WORKER documented in this encounter Active and Recently Administered Medications Times are shown in DELIVERY CREW WORKER. Continuous Medication Order 04/27/2017 04/28/2017 04/29/2017 lactated ringers infusion at 10 mL/hr, Intravenous, Continuous, Starting on Thu04/29/17 at 1000, Until Thu04/29/17 at 1316, Infuse at TKO rate, Pre-Op 1001 (New Bag - Prov ider: Antonio Braun CRNA)1023 (Anesthesia Volume Adjustment - Provider: Antonio Braun CRNA) documented in this encounter Care Teams Call Manager Relationship Specialty Start Date End Date Miguel Ángel Olea MD [address] [address] PCP - General FAMILY PRACTICE 07/16/16 documented as of this encounter
--- OUTSIDE RECORDS SUMMARY | 2024-05-29 21:37 | XMS_ITS | Encounter Summary ---
Author Organization [facility] Address [address] [place] [address]. [place], [place] [address] [place] [address] Care Team Providers Care Workers Compensation Claims Adjuster Name Role Phone Miguel Ángel Olea MD Primary Care Provider [phone] Reason for Visit * Reason Comments Mammogram (SCAN) Encounter Details Date Type Department Care Team ([facility] st Contact Info) Description 10/30/2021 Scan [facility] BUSINESS OFFICE [address] [place] [address] Scanned, Doc [facility] Mammogram (SCAN) Social [...] documented as of this encounter Care Teams Workers Compensation Claims Adjuster Relationship Specialty Start Date End Date Miguel Ángel Olea MD [address] [address] PCP - General FAMILY PRACTICE 07/16/16 documented as of this encounter
--- OUTSIDE RECORDS SUMMARY | 2024-05-29 21:37 | XMS_ITS | Encounter Summary ---
Author Organization [facility] Address [address] [place] [address]. [place], [place] [address] [place] [address] Care Team Providers Care Harness Puller Name Role Phone Jun Ivey MD Primary Care Provider Miguel Ángel Blakely MD Primary Care Provider [phone] Encounter Details Date Type Department Care Team (Latest Contact Info) Description 10/24/2015 Abstract [facility] Medical Group Social History Tobacco [...] on filedocumented in this encounter Care Teams Harness Puller Relationship Specialty Start Date End Date Jun Ivey MD PCP - General 07/06/15 07/15/16 Miguel Ángel Olea MD [address] [place] [address] PCP - General FAMILY PRACTICE 07/16/16 documented as of this encounter
--- OUTSIDE RECORDS SUMMARY | 2024-05-29 21:37 | XMS_ITS | Encounter Summary ---
Author Organization [facility] Address [address] [place] [address]. [place], [place] [address] [place] [address] Care Team Providers Care Timber Trimmer Name Role Phone Miguel Ángel Olea MD Primary Care Provider [phone] Encounter Details Date Type Department Care Team (Latest Contact Info) Description 01/04/2018 7:17 PM CDT - 01/04/2018 11:59 PM T Hospital Encounter [facility] [place] [address] Miguel Ángel Olea MD [address] [place] [address] Discharge Disposition: Home or Self Care (Routine [...] (two) times daily. 03/08/2020 vitamin D2, ergocalciferol, 92807 UNITS capsule Take 50,000 Units by mouth [...] - 100 NG/ML 01/04/2018 7:59 PM CDT [facility] Comment: ? INTERPRETATION ? DEFICIENT ??<20 ? INSUFFICIENT 20-29 ?SUFFICIENT 30-100 01/04/2018 10:2 4 AM CDT Miguel Ángel Olea MD LABORATORY Final Result [facility] [address] [place] [address], [place] [phone] * TSH W/REFLEX (01/04/2018 10:24 AM CDT) TSH 0.462 0.358 - 3.74 uIU/ML 01/04/2018 8:03 PM CDT [facility] Comment: HIGH DOSES OF BIOTIN MAY INTERFERE WITH THIS TEST RESULT. CORRELATION TO CLINICAL HISTORY AND PRESENTATION RECOMMENDED. FREE T4 NOT INDICATED 01/04/2018 10:2 4 AM CDT us Miguel Ángel Olea MD LABORATORY Final Result Performing Organization Address City/[facility]/ZIP Co de Phone Number [facility] [address] [place] [address], [place] [phone] * (ABNORMAL) LIPID PANEL (01/04/2018 10:24 AM CDT) CHOLESTEROL 244(H) <200 MG/DL 01/04/2018 8:03 PM CDT [facility] TRIGLYCERIDES 105 <150 MG/DL 01/04/2018 8:03 PM CDT [facility] HDL 46 >40.0 MG/DL 01/04/2018 8:03 PM CDT [facility] LDL (CALCULATED) 177(H) <100 MG/DL 01/04/2018 8:03 PM CDT [facility] NON HDL CHOLESTEROL 198(H) <130 MG/DL 01/04/2018 8:03 PM CDT [facility] CHOL/HDL RATIO 5.3(H) 0.0 - 4.5 01/04/2018 8:03 PM CDT [facility] VLDL CALCULATION 21 5 - 55 MG/DL 01/04/2018 8:03 PM CDT [facility] LIPID INTERPRETATION 01/04/2018 8:03 PM CDT [facility] Comment: NIH CONCENSUS REPORT RECOMMENDATIONS: ?ADULT [...] Miguel Ángel Olea MD LABORATORY Final Result [facility] [address] [place] [address], [place] [phone] * COMPREHENSIVE METABOLIC PANEL (01/04/2018 10:24 AM CDT) [facility] GLUCOSE 92 70 - 99 MG/DL 01/04/2018 8:03 PM CDT [facility] BUN 15 7 - 18 MG/DL 01/04/2018 8:03 PM CDT [facility] CREATININE S/P/B 0.77 0.55 - 1.02 MG/DL 01/04/2018 8:03 PM CDT [facility] SODIUM S/P/B 141 136 - 145 MMOL/L 01/04/2018 8:03 PM CDT [facility] POTASSIUM S/P/B 4.7 3.5 - 5.1 MMOL/L 01/04/2018 8:03 PM CDT [facility] CHLORIDE S/P/B 107 100 - 108 MMOL/L 01/04/2018 8:03 PM CDT [facility] CO2 26.8 21 - 32 MMOL/L 01/04/2018 8:03 PM CDT [facility] CALCIUM S/P/B 8.9 8.5 - 10.1 MG/DL 01/04/2018 8:03 PM CDT [facility] BILIRUBIN TOTAL S/P/B 0.4 0.2 - 1.2 MG/DL 01/04/2018 8:03 PM CDT [facility] TOTAL PROTEIN S/P/B 7.0 6.4 - 8.2 G/DL 01/04/2018 8:03 PM CDT [facility] ALBUMIN S/P/B 3.6 3.4 - 5.0 G/DL 01/04/2018 8:03 PM CDT [facility] AST 17 15 - 37 U/L 01/04/2018 8:03 PM CDT [facility] ALT 43 14 - 55 U/L 01/04/2018 8:03 PM CDT [facility] ALKALINE PHOSPHATASE S/P/B 85 50 - 136 U/L 01/04/2018 8:03 PM CDT [facility] ANION GAP 11.9 8 - 20 MMOL/L 01/04/2018 8:03 PM CDT [facility] BUN CREATININE RATIO 19.5 6 - 26 01/04/2018 8:03 PM CDT [facility] A/G RATIO 1.1 1.0 - 2.0 RATIO 01/04/2018 8:03 PM CDT [facility] EGFR NON-AFR. AMER. >90 >90 ML/MIN/1.7 3 M2 01/04/2018 8:03 PM CDT [facility] EGFR AFR. AMER. >90 >90 ML/MIN/1.7 3 M2 01/04/2018 8:03 PM CDT [facility] Comment: NOTE: eGFR is not calculated for patients <18 years of age. This is an estimated GFR (CKD EPI) and should not be used for calculating drug doses. 01/04/2018 10:2 4 AM CDT us Miguel Ángel Olea MD LABORATORY Final Result [facility] [address] [place] [address], [place] [phone] * (ABNORMAL) CBC W/DIFF AUTOMATED (01/04/2018 10:24 AM CDT) WBC 7.6 4.5 - 11.0 x10'3/uL 01/04/2018 7:36 PM CDT [facility] RBC 4.79 4.20 - 5.40 x10'6/uL 01/04/2018 7:36 PM CDT [facility] HGB 13.5 12.0 - 16.0 G/DL 01/04/2018 7:36 PM CDT [facility] HCT 42.3 38.0 - 48.0 % 01/04/2018 7:36 PM CDT [facility] MCV 88.3 81.0 - 99.0 FL 01/04/2018 7:36 PM CDT [facility] MCH 28.2 27.0 - 31.0 PG 01/04/2018 7:36 PM CDT [facility] MCHC 31.9(L) 32.0 - 36.0 G/DL 01/04/2018 7:36 PM CDT [facility] RDW 12.3 11.5 - 14.5 % 01/04/2018 7:36 PM CDT [facility] PLT 276 130 - 400 x10'3/uL 01/04/2018 7:36 PM CDT [facility] MPV 11.5 9.3 - 12.2 FL 01/04/2018 7:36 PM CDT [facility] DIFFERENTIAL TYPE MANUAL DIFFERENTIAL 01/04/2018 8:00 PM CDT [facility] SEG NEUTROPHILS 48 % 8 8:00 PM CDT [facility] LYMPHOCYTES 38 % 01/04/2018 8:00 PM T [facility] ATYP. LYMPHS 1 % 01/04/2018 8:00 PM CDT [facility] MONOCYTES 5 % 01/04/2018 8:00 PM CDT [facility] EOSINOPHILS 5 % 01/04/2018 8:00 PM CDT [facility] BASOPHILS 3 % 01/04/2018 8:00 PM CDT [facility] ABS. NEUTROPHILS CALCULATED 3.65 1.80 - 7.70 x10'3/uL 01/04/2018 8:00 PM CDT [facility] ABS.LYMPHOCYTES CALCULATED 2.96 1.00 - 4.80 x10'3/uL 01/04/2018 8:00 PM CDT [facility] ABS. MONOCYTES CALCULATED 0.38 0.24 - 0.86 x10'3/uL 01/04/2018 8:00 PM CDT [facility] ABS. EOSINOPHIL CALCULATED 0.38(H) 0.04 - 0.36 x10'3/uL 01/04/2018 8:00 PM CDT [facility] ABS. BASOPHIL CALCULATED 0.23(H) 0.01 - 0.08 x10'3/uL 01/04/2018 8:00 PM CDT [facility] RBC MORPHOLOGY RBC MORPHOLOGY APPEARS NORMAL. SLIDE REVIEWED. 01/04/2018 8:00 PM CDT [facility] PLT EST. ADEQUATE 01/04/2018 8:00 PM CDT [facility] 01/04/2018 10:2 4 AM CDT Miguel Ángel Olea MD LABORATORY Final Result [facility] [address] [place] [address], [place] [phone] documented in this encounter Visit Diagnoses Diagnosis Encounter for general adult medical examination without abnormal findings Unspecified general medical examination Pure hypercholesterolemia Vitamin D deficiency Unspecified vitamin D deficiency Overweight Headache documented in this encounter Care Teams Timber Trimmer Relationship Specialty Start Date End Date Miguel Ángel Olea MD [address] [place] [address] PCP - General FAMILY PRACTICE 07/16/16 documented as of this encounter
--- OUTSIDE RECORDS SUMMARY | 2024-05-29 21:37 | XMS_ITS | Clinical Summary ---
Author Organization [facility] Address [address] [place] [address]. [place], [place] [id number] [place] [address] Care Team Providers Care Body Piercer Name Role Phone Miguel Ángel Olea MD Primary Care Provider [phone] Allergies No known active allergies Medications cetirizine 10 MG tablet Take 10 mg by mouth daily. Active butalbital-acet aminophen-caffe ine 50-325-40 MG tablet Take 1 tablet by mouth every 4 (four) hours as needed for Pain. Active topiramate 100 MG tablet Take 1 tablet by mouth 2 (two) times daily. 07/17/2016 Active Cholecalciferol (VITAMIN D3) 1.25 MG (11996 UT) Tab Take 1 tablet by mouth [...] Relevant to Health Maintenance Insurance Care Teams Body Piercer Relationship Specialty Start Date End Date Miguel Ángel Olea MD [address] [facility] [address] [place] [address] PCP - General FAMILY PRACTICE 07/16/16
--- OUTSIDE RECORDS SUMMARY | 2024-05-29 21:37 | XMS_ITS | Encounter Summary ---
Author Organization [facility] Address [address] [facility] [place] [address] Care Team Providers Care Wind Field Service Manager Name Role Phone Miguel Ángel Olea MD Primary Care Provider [phone] Reason for Referral * OP/Amb RFL Auth (Routine) - Open Specialty Diagnoses / Procedures Referred By Rigoberto french Referred To Contact Diagnoses Willing to be kidney donor Procedures EKG 12-LEAD Sushant Meyers MD [address] [facility] [place] [address] Referral ID Status Reason Start Date Expiration Date Visits Re quested Visits Authorized [id number] Open 02/08/2024 02/07/2025 1 1 * Radiology Services (Routine) - Open Specialty Diagnoses / Procedures Referred By Rigoberto french Referred To Contact Diagnoses Willing to be kidney donor Procedures CT Angio Abdomen Pelvis Sushant Meyers MD [address] [facility] [place] [address] Referral ID Status Reason Start Date Expiration Date Visits Re quested Visits Authorized [id number] Open 02/08/2024 02/07/2025 1 1 Encounter Details Date Type Department Care Team (Late st Contact Info) Description 02/02/2024 Orders Only [facility] [address] [facility], [place] [address] Kian Camarillo, RN Willing to be kidney [...] AM CDT Performed at: ??01 - [facility] [address] ??[id number] Family Specialist: Serina Tillman PhD, Phone: ??[phone] Sushant Meyers MD LAB - CHEMISTRY ORDERABLES [facility] ACCOUNT BILL [address] [place] [address] documented in this encounter Visit Diagnoses Diagnosis Willing to be kidney donor- Primary documented in this encounter Care Teams Wind Field Service Manager Relationship Specialty Start Date End Date Miguel Ángel Olea MD PCP - General 01/26/18 documented as of this encounter
--- OUTSIDE RECORDS SUMMARY | 2024-05-29 21:37 | XMS_ITS | Encounter Summary ---
Author Organization [facility] Address [address] [place] [address]. [place], [place] [address] [place] [address] Care Team Providers Care Die Maker Trim Name Role Phone Miguel Ángel Olea MD Primary Care Provider [phone] Reason for Visit * Auth/Cert Specialty Diagnoses / Procedures Referred By Contac t Referred To Contact Diagnoses BRIGHT RED BLOOD PER RECTUM, BLOOD IN STOOL Procedures COLONOSCOPY Referral ID Status Reason Start Date Expiration Date Visits Re quested Visits Authorized [id number] 1 1 Encounter Details Date Type Department Care Team (Late st Contact Info) Description 04/29/2017 10:00 AM POWER SYSTEMS ENGINEER - 04/29/2017 11:14 AM POWER SYSTEMS ENGINEER Surgery [facility] [place] [address] Pancho Jackson MD [address] [facility] [address] [place] [address] COLONOSCOPY Surgery Details Date/Time Status Location OR [...] Comments Blood Pressure 103/72 04/29/2017 10:50 AM POWER SYSTEMS ENGINEER Pulse 66 04/29/2017 10:50 AM POWER SYSTEMS ENGINEER Temperature 37.1 ??C (98.7 ??F) 04/29/2017 9:19 AM CS T Respiratory Rate 19 04/29/2017 10:50 AM POWER SYSTEMS ENGINEER Oxygen Saturation 98% 04/29/2017 10:50 AM POWER SYSTEMS ENGINEER Inhaled Oxygen Concentration - - Weight 97.5 kg (215 lb) 04/21/2017 12:01 AM POWER SYSTEMS ENGINEER Height 162.6 cm (5' 4 ) 04/21/2017 12:01 AM POWER SYSTEMS ENGINEER Body Mass Index 36.9 04/21/2017 12:01 AM POWER SYSTEMS ENGINEER documented in this encounter Discharge Instructions * Discharge Instructions* Pancho Jackson MD - 04/29/2017 10:25 AM POWER SYSTEMS ENGINEER Images from the original note were not [...] belly pain. Where can I learn more? [employer] http://www.gastro.org/info_for_patients/hkplqwfaggr-396-fykx-nk-w-elrmcmmbbqm [employer] [place] [employer] Gastrointestinal Endoscopy http://www.asge.org/patients/patients.aspx?gx=011 National Digestive Diseases Information Clearinghouse http://digestive.niddk.nih.gov/ddiseases/pubs/colonoscopy/ Last [...] right for you. Copyright Copyright ?? 2017 [employer], [employer]. and its affiliates and/or licensors. All rights reserved. R SYSTEMS ENGINEER documented in this encounter Medications at Time [...] (two) times daily. 03/08/2020 vitamin D2, ergocalciferol, 10305 UNITS capsule Take 50,000 Units by mouth [...] with the patient and/or family/personal sales representative trainee. Questions were answered and the patient/family/personal sales representative trainee verbalized understanding and desires to proceed. Referred [...] of Puncture wound of thigh, left (890.0) (S71.282A) 6. History of Tear of PCL (posterior cruciate ligament) of knee (844.2) (S83.625I) Surgical History 1. History of Cholecystectomy Laparoscopic ?? dr. seth rg Md 2. History of Decompress Fasciotomy Mult Compartments Of Thigh, Debridemen ?? puncure rebarb left thigh debrided and surgerical treated by Dr. Seth Rg General Surgeon. 3. History of Knee Surgery Left ?? LEFT KNEE MENISCAL TEAR, ACL/PCL TEAR, DONE AT [facility] IN [place] Family History Mother 1. Family history of fibromyalgia (V17.89) (Z82.69) Father 2. Family history of deep venous thrombosis (V17.49) (Z82.49) 3. Family history of diabetes mellitus (V18.0) (Z83.3) Paternal Grandmother 4. Family history of diabetes mellitus (V18.0) (Z83.3) 5. Family history of lung cancer (V16.1) (Z80.1) ?? grandmother - smoker grandfather - non smoker. reefer truck driver. Paternal Grandfather 6. Family history of diabetes mellitus (V18.0) (Z83.3) 7. Family history of lung cancer (V16.1) (Z80.1) ?? grandmother - smoker grandfather - non smoker. reefer truck driver. Aunt 8. Family history of [...] Hypercholesterolemia; MARY = N; Verified Transmission to [facility]; Last Updated By: QuickPay; 07/25/2016 9:00:35 AM 2. Cetirizine HCl - 10 MG Oral Tablet; TAKE ONE TABLET BY MOUTH ONCE DAILY DIRECTED; Therapy: [id number] to (Evaluate:[id number]) Requested for: [id number]; Last Rx:[id number] Ordered Rx By: Miguel Ángel Olea; Dispense: 30 Days ; #:30 TAB; Refill: 2;For: Allergic rhinitis; MARY = N; Verified Transmission to [facility]; Last Updated By: QuickPay; 01/27/2017 8:00:08 AM 3. Ergocalciferol 06758 UNIT CAPS; TAKE 1 CAPSULE WEEKLY; Therapy: 25Jul2016 to (Last Rx:25Jul2016) Requested for: 25Jul2016 Ordered Rx By: Miguel Ángel Olea; Dispense: 0 Days ; #:12 Capsule; Refill: 3;For: Low vitamin D level; MARY = N;Verified Transmission to [facility]; Last Updated By: QuickPay; 07/25/2016 9:00:35 AM 4. Stool Softener CAPS; TAKE CAPSULE PRN; Therapy: (Recorded:[id number]) to Recorded Dispense: 0 Days ; #: Sufficient Capsule; Refill: 0; MARY = N; Record; Last Updated By: Yulia Marin; 04/17/2017 8:46:45 AM 5. Topiramate 100 MG Oral Tablet; TAKE 1 TABLET TWICE DAILY; Therapy: 17Jul2016 to (Evaluate:12Nov2017) Requested for: [id number]; Last Rx:[id number] Ordered Rx By: Miguel Ángel Olea; Dispense: 30 Days ; #:60 Tablet; Refill: 11;For: Headache; MARY = N; Sent To: [facility] Allergies 1. No Known Drug Allergies [...] oriented x 3 Results/Data LC-CBC/Diff Ambiguous Default [id number] 17Jul2016 09:38AM Lefty Anaedson Test Name Result [...] have assigned CBC with Differential/Platelet, Test Code #[id number] to this request. If this is not the testing you wished to receive on this specimen, please contact the [facility] Client Inquiry/ Technical Services Department to clarify the test order. We appreciate your business. LC-Comp. Metabolic Panel ( CMP ) [id number] [id number] 09:38AM Miguel Ángel Olea Test Name Result [...] Pancho Jackson MD; Apr 17 2017 9:37AM POWER SYSTEMS ENGINEER (Author) R SYSTEMS ENGINEER documented in this encounter OR Notes * [...] previously scheduled. -Follow-up in clinic as needed R SYSTEMS ENGINEER documented in this encounter Plan of Treatment Not on file documented as of this encounter Procedures Procedure Name Priority Date/Time Associated Diagnosis Comments COLONOSCOPY 04/29/2017 9:43 AM POWER SYSTEMS ENGINEER BRIGHT RED BLOOD PER RECTUM, BLOOD IN [...] rate, Pre-Op New Bag 04/29/2017 10:01 AM POWER SYSTEMS ENGINEER documented in this encounter Active and Recently Administered Medications Times are shown in POWER SYSTEMS ENGINEER. Continuous Medication Order 04/27/2017 04/28/2017 04/29/2017 lactated ringers infusion at 10 mL/hr, Intravenous, Continuous, Starting on Thu04/29/17 at 1000, Until Thu04/29/17 at 1316, Infuse at TKO rate, Pre-Op 1001 (New Bag - Prov ider: Antonio Braun CRNA)1023 (Anesthesia Volume Adjustment - Provider: Antonio Braun CRNA) documented in this encounter Care Teams Die Maker Trim Relationship Specialty Start Date End Date Miguel Ángel Olea MD [address] [address] PCP - General FAMILY PRACTICE 07/16/16 documented as of this encounter
--- OUTSIDE RECORDS SUMMARY | 2024-05-29 21:37 | XMS_ITS | Encounter Summary ---
Author Organization [facility] Address [address] [place] [address]. [place], [place] [address] [place] [address] Care Team Providers Care Studio Associate Name Role Phone Miguel Ángel Olea MD Primary Care Provider [phone] Encounter Details Date Type Department Care Team (Latest Contact Info) Description 06/25/2017 Abstract [facility] Medical Group Social History Tobacco [...] on filedocumented in this encounter Care Teams Studio Associate Relationship Specialty Start Date End Date Miguel Ángel Olea MD [address] [place] [address] PCP - General FAMILY PRACTICE 07/16/16 documented as of this encounter
--- OUTSIDE RECORDS SUMMARY | 2024-05-29 21:37 | XMS_ITS | Encounter Summary ---
Author Organization [facility] Address [address] [place] [address]. [place], [place] [address] [place] [address] Care Team Providers Care Hardware Technician Name Role Phone Miguel Ángel Olea MD Primary Care Provider [phone] Encounter Details Date Type Department Care Team [...] on filedocumented in this encounter Care Teams Hardware Technician Relationship Specialty Start Date End Date Miguel Ángel Olea MD [address] [place] [address]'[place] [address] PCP - General FAMILY PRACTICE 07/16/16 documented as of this encounter
--- OUTSIDE RECORDS SUMMARY | 2024-05-29 21:37 | XMS_ITS | Encounter Summary ---
Author Organization [facility] Address [address] [place] [address]. [place], [place] [address] [place] [address] Care Team Providers Care Client Service Executive Name Role Phone Miguel Ángel Olea MD Primary Care Provider [phone] Encounter Details Date Type Department Care Team (Late st Contact Info) Description 01/04/2018 Orders Only [facility] [place], [place] [id number] Miguel Ángel Olea MD [address] [place] [address] [address] [place], [place] [id number] Social History Tobacco Use Types Packs/Day Years [...] - 100 NG/ML 01/04/2018 7:59 PM CDT [facility] Comment: ? INTERPRETATION ? DEFICIENT ??<20 ? INSUFFICIENT 20-29 ?SUFFICIENT 30-100 01/04/2018 10:2 4 AM CDT Miguel Ángel Olea MD LABORATORY Final Result Performing Organization Address [facility] Co de Phone Number [facility] [address] [place] [address], * TSH W/REFLEX (01/04/2018 10:24 AM CDT) TSH 0.462 0.358 - 3.74 uIU/ML 01/04/2018 8:03 PM CDT [facility] Comment: HIGH DOSES OF BIOTIN MAY INTERFERE WITH THIS TEST RESULT. CORRELATION TO CLINICAL HISTORY AND PRESENTATION RECOMMENDED. FREE T4 NOT INDICATED 01/04/2018 10:2 4 AM CDT Miguel Ángel Olea MD LABORATORY Final Result Performing Organization Address [facility] de Phone Number [facility] [address] [place] [address], * (ABNORMAL) LIPID PANEL (01/04/2018 10:24 AM CDT) CHOLESTEROL 244(H) <200 MG/DL 01/04/2018 8:03 PM CDT [facility] TRIGLYCERIDES 105 <150 MG/DL 01/04/2018 8:03 PM CDT [facility] HDL 46 >40.0 MG/DL 01/04/2018 8:03 PM CDT [facility] LDL (CALCULATED) 177(H) <100 MG/DL 01/04/2018 8:03 PM CDT [facility] NON HDL CHOLESTEROL 198(H) <130 MG/DL 01/04/2018 8:03 PM T [facility] CHOL/HDL RATIO 5.3(H) 0.0 - 4.5 01/04/2018 8:03 PM T [facility] VLDL CALCULATION 21 5 - 55 MG/DL 01/04/2018 8:03 PM [facility] LIPID INTERPRETATION 01/04/2018 8:03 PM T [facility] Comment: NIH CONCENSUS REPORT RECOMMENDATIONS: [...] Miguel Ángel Olea MD LABORATORY Final Result [facility] [address] [place] [address], * COMPREHENSIVE METABOLIC PANEL (01/04/2018 10:24 AM CDT) GLUCOSE 92 70 - 99 MG/DL 01/04/2018 8:03 PM CDT [facility] BUN 15 7 - 18 MG/DL 01/04/2018 8:03 PM CDT [facility] CREATININE S/P/B 0.77 0.55 - 1.02 MG/DL 01/04/2018 8:03 PM CDT [facility] SODIUM S/P/B 141 136 - 145 MMOL/L 01/04/2018 8:03 PM CDT [facility] POTASSIUM S/P/B 4.7 3.5 - 5.1 MMOL/L 01/04/2018 8:03 PM CDT [facility] CHLORIDE S/P/B 107 100 - 108 MMOL/L 01/04/2018 8:03 PM CDT [facility] CO2 26.8 21 - 32 MMOL/L 01/04/2018 8:03 PM CDT [facility] CALCIUM S/P/B 8.9 8.5 - 10.1 MG/DL 01/04/2018 8:03 PM CDT [facility] BILIRUBIN TOTAL S/P/B 0.4 0.2 - 1.2 MG/DL 01/04/2018 8:03 PM CDT [facility] TOTAL PROTEIN S/P/B 7.0 6.4 - 8.2 G/DL 01/04/2018 8:03 PM T [facility] ALBUMIN S/P/B 3.6 3.4 - 5.0 G/DL 01/04/2018 8:03 PM T [facility] AST 17 15 - 37 U/L 01/04/2018 8:03 PM CDT [facility] ALT 43 14 - 55 U/L 01/04/2018 8:03 PM T [facility] ALKALINE PHOSPHATASE S/P/B 85 50 - 136 U/L 01/04/2018 8:03 PM T [facility] ANION GAP 11.9 8 - 20 MMOL/L 01/04/2018 8:03 PM T [facility] BUN CREATININE RATIO 19.5 6 - 26 01/04/2018 8:03 PM T [facility] A/G RATIO 1.1 1.0 - 2.0 RATIO 01/04/2018 8:03 PM T [facility] EGFR NON-AFR. AMER. >90 >90 ML/MIN/1.7 3 M2 01/04/2018 8:03 PM T [facility] EGFR AFR. AMER. >90 >90 ML/MIN/1.7 3 M2 01/04/2018 8:03 PM T [facility] Comment: NOTE: eGFR is not calculated for patients <18 years of age. This is an estimated GFR (CKD EPI) and should not be used for calculating drug doses. 01/04/2018 10:2 4 AM CDT Miguel Ángel Olea MD LABORATORY Final Result [facility] [address] [place] [address], [place] [phone] * (ABNORMAL) CBC W/DIFF AUTOMATED (01/04/2018 10:24 AM CDT) [facility] Signature WBC 7.6 4.5 - 11.0 x10'3/uL 01/04/2018 7:36 PM CDT [facility] RBC 4.79 4.20 - 5.40 x10'6/uL 01/04/2018 7:36 PM CDT [facility] HGB 13.5 12.0 - 16.0 G/DL 01/04/2018 7:36 PM CDT [facility] HCT 42.3 38.0 - 48.0 % 01/04/2018 7:36 PM CDT [facility] MCV 88.3 81.0 - 99.0 FL 01/04/2018 7:36 PM CDT [facility] MCH 28.2 27.0 - 31.0 PG 01/04/2018 7:36 PM CDT [facility] MCHC 31.9(L) 32.0 - 36.0 G/DL 01/04/2018 7:36 PM CDT [facility] RDW 12.3 11.5 - 14.5 % 01/04/2018 7:36 PM CDT [facility] PLT 276 130 - 400 x10'3/uL 01/04/2018 7:36 PM CDT [facility] MPV 11.5 9.3 - 12.2 FL 01/04/2018 7:36 PM CDT [facility] DIFFERENTIAL TYPE MANUAL DIFFERENTIAL 01/04/2018 8:00 PM CDT [facility] SEG NEUTROPHILS 48 % 8 8:00 PM CDT [facility] LYMPHOCYTES 38 % 01/04/2018 8:00 PM CDT [facility] ATYP. LYMPHS 1 % 01/04/2018 8:00 PM CDT [facility] MONOCYTES 5 % 01/04/2018 8:00 PM CDT [facility] EOSINOPHILS 5 % 01/04/2018 8:00 PM CDT [facility] BASOPHILS 3 % 01/04/2018 8:00 PM CDT [facility] ABS. NEUTROPHILS CALCULATED 3.65 1.80 - 7.70 x10'3/uL 01/04/2018 8:00 PM CDT [facility] ABS.LYMPHOCYTES CALCULATED 2.96 1.00 - 4.80 x10'3/uL 01/04/2018 8:00 PM CDT [facility] ABS. MONOCYTES CALCULATED 0.38 0.24 - 0.86 x10'3/uL 01/04/2018 8:00 PM CDT [facility] ABS. EOSINOPHIL CALCULATED 0.38(H) 0.04 - 0.36 x10'3/uL 01/04/2018 8:00 PM CDT [facility] ABS. BASOPHIL CALCULATED 0.23(H) 0.01 - 0.08 x10'3/uL 01/04/2018 8:00 PM CDT [facility] RBC MORPHOLOGY RBC MORPHOLOGY APPEARS NORMAL. SLIDE REVIEWED. 01/04/2018 8:00 PM CDT [facility] PLT EST. ADEQUATE 01/04/2018 8:00 PM CDT [facility] 01/04/2018 10:2 4 AM CDT Miguel Ángel Olea MD LABORATORY Final Result [facility] [address] [place] [address], [place] [phone] documented in this encounter Visit Diagnoses Diagnosis Encounter for general adult medical examination without abnormal findings Unspecified general medical examination Pure hypercholesterolemia Vitamin D deficiency Unspecified vitamin D deficiency Overweight Headache documented in this encounter Care Teams Client Service Executive Relationship Specialty Start Date End Date Miguel Ángel Olea MD [address] [address] PCP - General FAMILY PRACTICE 07/16/16 documented as of this encounter
--- OUTSIDE RECORDS SUMMARY | 2024-05-29 21:37 | XMS_ITS | Encounter Summary ---
Author Organization [facility] Address [address] [facility] [place] [place] [address] Care Team Providers Care Vehicle Painter Name Role Phone Miguel Ángel Olea MD Primary Care Provider [phone] Reason for Visit * Reason Onset Date Comments General 05/25/2018 Encounter Details Date Type Department Care Team (Late st Contact Info) Description 05/25/2018 Telephone [facility] Neurology [address] [place] [address] Rohit Daly MD [address] [place] [address] General Social History Tobacco Use [...] she is scheduled for her MRI at [facility] on 11/24/18 at 10 am. Returned call to patient - Dr. Daly has not been in clinic since paperwork received. MRI may have to be rescheduled due to approval needed from [place] . Verbalizes understanding. PRODUCTION WORKER documented in this encounter Plan of Treatment Not on file documented as of this encounter Visit Diagnoses Not on filedocumented in this encounter Care Teams Vehicle Painter Relationship Specialty Start Date End Date Miguel Ángel Olea MD PCP - General 01/26/18 documented as of this encounter
--- OUTSIDE RECORDS SUMMARY | 2024-05-29 21:37 | XMS_ITS | Encounter Summary ---
Author Organization [facility] Address [address] [place] [address]. [place], [place] [address] [place] [address] Care Team Providers Care Salvage Mend Worker Name Role Phone Jun Ivey MD Primary Care Provider Miguel Ángel Blakely MD Primary Care Provider [phone] Encounter Details Date Type Department Care Team (Late st Contact Info) Description 07/24/2015 Abstract [facility] Medical Group Family Medicine - [place] [address] [place] [address] Jun Ivey MD [address] [place] [address] Social History Tobacco Use Types Packs/Day Years [...] Comments Blood Pressure 124/78 07/24/2015 11:09 AM GIFT SHOP MANAGER Pulse 80 07/24/2015 11:09 AM GIFT SHOP MANAGER Temperature - - Respiratory Rate - - Oxygen Saturation - - Inhaled Oxygen Concentration - - Weight 102.5 kg (226 lb) 07/24/2015 11:09 AM GIFT SHOP MANAGER Height - - Body Mass Index 38.79 06/14/2015 1:50 PM GIFT SHOP MANAGER documented in this encounter Progress Notes [...] MENISCAL TEAR, ACL/PCL TEAR, DONE AT [facility] IN [place] Family History Father 1. Family [...] laxity on Varus Stress. Results/Data Lipid Profile [id number] 09:52AM Jun Ivey Test Name Result Flag [...] doses. mL/min/1.73m'2 Hemoglobin A1C ( HA1C ) [id number] 09:52AM Jun Ivey Test Name Result Flag [...] the patient a patellar stabilizer brace from [employer] [facility] [employer] and in the meantime, she can [...] Jun Ivey M.D.; Jul 25 2015 6:39PM GIFT SHOP MANAGER (Author) documented in this encounter Plan of Treatment Not on file documented as of this encounter Visit Diagnoses Not on filedocumented in this encounter Care Teams Salvage Mend Worker Relationship Specialty Start Date End Date Jun Ivey MD PCP - General 07/06/15 07/15/16 Miguel Ángel Olea MD [address] [address] PCP - General FAMILY PRACTICE 07/16/16 documented as of this encounter
--- OUTSIDE RECORDS SUMMARY | 2024-05-29 21:37 | XMS_ITS | Encounter Summary ---
Author Organization [facility] Address [address] [place] [address]. [place], [place] [address] [place] [address] Care Team Providers Care Official Greeter Name Role Phone Miguel Ángel Olea MD Primary Care Provider [phone] Encounter Details Date Type Department Care Team (Late st Contact Info) Description 04/17/2017 Abstract [facility] Medical Group Multispecialty Care - [facility] [address] [facility], [address] [place] [address] Pancho Jackson MD [address] [place] [address] Social History Tobacco Use Types Packs/Day Years [...] Comments Blood Pressure 126/82 04/17/2017 8:46 AM CUSTOMER RESPONSE REPRESENTATIVE Pulse 72 04/17/2017 8:46 AM CUSTOMER RESPONSE REPRESENTATIVE Temperature - - Respiratory Rate - - Oxygen Saturation - - Inhaled Oxygen Concentration - - Weight 98 kg (216 lb) 04/17/2017 8:46 AM CUSTOMER RESPONSE REPRESENTATIVE Height 162.6 cm (5' 4 ) 04/17/2017 8:46 AM CUSTOMER RESPONSE REPRESENTATIVE Body Mass Index 37.08 04/17/2017 8:46 AM CUSTOMER RESPONSE REPRESENTATIVE documented in this encounter Progress Notes * [...] PCL (posterior cruciate ligament) of knee (844.2) (S83.939A) Surgical History 1. History of Cholecystectomy Laparoscopic ?? dr. seth rg Md 2. History of Decompress Fasciotomy Mult Compartments Of Thigh, Debridemen ?? puncure rebarb left thigh debrided and surgerical treated by Dr. Seth Rg General Surgeon. 3. History of Knee Surgery Left ?? LEFT KNEE MENISCAL TEAR, ACL/PCL TEAR, DONE AT [facility] IN [place] Family History Mother 1. Family history of fibromyalgia (V17.89) (Z82.69) Father 2. Family history of deep venous thrombosis (V17.49) (Z82.49) 3. Family history of diabetes mellitus (V18.0) (Z83.3) Paternal Grandmother 4. Family history of diabetes mellitus (V18.0) (Z83.3) 5. Family history of lung cancer (V16.1) (Z80.1) ?? grandmother - smoker grandfather - non smoker. local truck driver. Paternal Grandfather 6. Family history of diabetes mellitus (V18.0) (Z83.3) 7. Family history of lung cancer (V16.1) (Z80.1) ?? grandmother - smoker grandfather - non smoker. local truck driver. Aunt 8. Family history of [...] Hypercholesterolemia; MARY = N; Verified Transmission to [facility]; Last Updated By: Genomas; 07/25/2016 9:00:35 AM 2. Cetirizine HCl - 10 MG Oral Tablet; TAKE ONE TABLET BY MOUTH ONCE DAILY DIRECTED; Therapy: [id number] to (Evaluate:[id number]) Requested for: [id number]; Last Rx:[id number] Ordered Rx By: Miguel Ángel Olea; Dispense: 30 Days ; #:30 TAB; Refill: 2; For: Allergic rhinitis; MARY = N; Verified Transmission to [facility]; Last Updated By: Genomas; 01/27/2017 8:00:08AM 3. Ergocalciferol [address]18 UNIT CAPS; TAKE 1 CAPSULE WEEKLY; Therapy: 25Jul2016 to (Last Rx:25Jul2016) Requested for: 25Jul2016 Ordered Rx By: Miguel Ángel Olea; Dispense: 0 Days ; #:12 Capsule; Refill: 3; For: Low vitamin D level; MARY = N; Verified Transmission to [facility]; Last Updated By: Genomas; 07/25/2016 9:00:35 AM 4. Stool Softener CAPS; TAKE CAPSULE PRN; Therapy: (Recorded:[id number]) to Recorded Dispense: 0 Days ; #: Sufficient Capsule; Refill: 0; MARY = N; Record; Last Updated By: Yulia Marin; 04/17/2017 8:46:45 AM 5. Topiramate 100 MG Oral Tablet; TAKE 1 TABLET TWICE DAILY; Therapy: 17Jul2016 to (Evaluate:12Nov2017) Requested for: [id number]; Last Rx:[id number] Ordered Rx By: Miguel Ángel Olea; Dispense: 30 Days ; #:60 Tablet; Refill: 11; For: Headache; MARY = N; Sent To:[facility] Allergies 1. No Known Drug Allergies Recorded By: Amish Connor; 06/14/2015 1:55:45 PM Vitals Recorded: [id number] 08:46AM Heart Rate 72 Systolic 126 Diastolic [...] oriented x 3 Results/Data LC-CBC/Diff Ambiguous Default [id number] 17Jul2016 09:38AM Miguel Ángel Olea Test Name [...] have assigned CBC with Differential/Platelet, Test Code #[id number] to this request. If this is not the testing you wished to receive on this specimen, please contact the [facility] Client Inquiry/ Technical Services Department to clarify the test order. We appreciate your business. LC-Comp. Metabolic Panel ( CMP ) [id number] 09:38AM Miguel Ángel Olea Test Name Result [...] Pancho Jackson MD; Apr 17 2017 9:37AM CUSTOMER RESPONSE REPRESENTATIVE (Author) documented in this encounter Plan of Treatment Not on file documented as of this encounter Visit Diagnoses Not on filedocumented in this encounter Care Teams Official Greeter Relationship Specialty Start Date End Date Miguel Ángel Olea MD [address], [place] [address] PCP - General FAMILY PRACTICE 07/16/16 documented as of this encounter
--- OUTSIDE RECORDS SUMMARY | 2024-05-29 21:38 | XMS_ITS | Encounter Summary ---
Author Organization [facility] Address [address] [place] [address]. [place], [place] [address] [place] [address] Care Team Providers Care Engineering Inspector Name Role Phone Jun Ivey MD Primary Care Provider Jun Long MD Primary Care Provider Jun Long MD Primary Care Provider Jun Long MD Primary Care Provider Jun Long MD Primary Care Provider Jun Long MD Primary Care Provider Glenroy yap Md Generic Calvin VAUGHN Primary Care Provider Unavailable Dot Shultz DO Primary Care Provider [phone] Miguel Ángel Olea MD Primary Care Provider [phone] Encounter Details Date Type Department Care Team (Late st Contact Info) Description 09/07/1998 Abstract [place] [address] Md Generic MD Calvin Social History Tobacco [...] on filedocumented in this encounter Care Teams Engineering Inspector Relationship Specialty Start Date End Date Jun [...] General 07/23/11 Dot Shultz DO [address] [facility] [address] [address] '[place] [address] PCP - General 01/24/11 07/22/11 Miguel Ángel Olea MD [address] [facility] [address] [place] [address] PCP - General FAMILY PRACTICE 07/16/16 documented as of this encounter
--- OUTSIDE RECORDS SUMMARY | 2024-05-29 21:38 | XMS_ITS | Encounter Summary ---
Author Organization [facility] Address [address] [place] [address]. [place], [place] [address] [place] [address] Care Team Providers Care Still Cleaner Name Role Phone Jun Ivey MD Primary Care Provider Jun Long MD Primary Care Provider Jun Long MD Primary Care Provider Jun Long MD Primary Care Provider Jun Long MD Primary Care Provider Jun Long MD Primary Care Provider Nav Mohamud Md, MD Primary Care Provider Unavailable Miguel Ángel Olea MD Primary Care Provider [phone] Encounter Details Date Type Department Care Team (Latest Contact Info) Description 07/05/2014 Abstract [facility] Social History Tobacco Use [...] on filedocumented in this encounter Care Teams Still Cleaner Relationship Specialty Start Date End Date Jun [...] General 07/23/11 Miguel Ángel Olea MD [address] [address] PCP - General FAMILY PRACTICE 07/16/16 documented as of this encounter
--- OUTSIDE RECORDS SUMMARY | 2024-05-29 21:38 | XMS_ITS | Encounter Summary ---
Author Organization [facility] Address [address] [place] [address]. [place], [place] [address] [place] [address] Care Team Providers Care Caregiver Assisted Living Name Role Phone Jun Ivey MD Primary Care Provider Jun Long MD Primary Care Provider Jun Long MD Primary Care Provider Jun Long MD Primary Care Provider Jun Long MD Primary Care Provider Jun Long MD Primary Care Provider UnavailNav rowley Md, MD Primary Care Provider Unavailable Dot Shultz DO Primary Care Provider [phone] Miguel Ángel Olea MD Primary Care Provider [phone] Encounter Details Date Type Department Care Team (Late st Contact Info) Description 01/24/[address] [facility] [address] [place], [place] [id number] Celine Bush MD [address] [place], [place] [address] Social History Tobacco Use Types Packs/Day Years [...] (chronic) documented in this encounter Care Teams Caregiver Assisted Living Relationship Specialty Start Date End Date Jun [...] General 07/23/11 Dot Shultz DO [address] [place], [place] [id number] PCP - General 01/24/11 07/22/11 Miguel Ángel Olea MD [address] [facility] [address] [place], [place] [id number] PCP - General FAMILY PRACTICE 07/16/16 documented as of this encounter
--- OUTSIDE RECORDS SUMMARY | 2024-05-29 21:38 | XMS_ITS | Encounter Summary ---
Author Organization [facility] Address [address] [place] [address]. [place], [place] [address] [place] [address] Care Team Providers Care Environmental Protection Forester Name Role Phone uJn Ivey MD Primary Care Provider Jun Long MD Primary Care Provider uJn Long MD Primary Care Provider Jun Long MD Primary Care Provider Jun Long MD Primary Care Provider Jun Long MD Primary Care Provider Nav Mohamud Md, MD Primary Care Provider Unavailable Miguel Ángel Olea MD Primary Care Provider [phone] Encounter Details Date Type Department Care Team (Late st Contact Info) Description 06/14/[address] [facility] Family Medicine - [place] [address] [facility], [address] [place] [address] Jun Ivey MD [address] [facility] [address] [place] [address] Social History Tobacco Use Types Packs/Day Years [...] Comments Blood Pressure 122/72 06/14/2015 1:50 PM SURVEYING TEACHER Pulse 81 06/14/2015 1:50 PM SURVEYING TEACHER Temperature - - Respiratory Rate - - Oxygen Saturation - - Inhaled Oxygen Concentration - - Weight 99.8 kg (220 lb) 06/14/2015 1:50 PM SURVEYING TEACHER Height 162.6 cm (5' 4 ) 06/14/2015 1:50 PM SURVEYING TEACHER Body Mass Index 37.76 06/14/2015 1:50 PM SURVEYING TEACHER documented in this encounter Progress Notes [...] pressure. had curbside consultation with physician at [place] where she works, and was suggested to [...] KNEE MENISCAL TEAR, ACL/PCL TEAR, DONE AT [facility] IN [place] Family History Father 1. Family history of diabetes mellitus (V18.0) (Z83.3) Paternal Grandmother 2. Family history of diabetes mellitus (V18.0) (Z83.3) 3. Family history of lung cancer (V16.1) (Z80.1) ?? grandmother - smoker grandfather - non smoker. truck loader. Paternal Grandfather 4. Family history of diabetes mellitus (V18.0) (Z83.3) 5. Family history of lung cancer (V16.1) (Z80.1) ?? grandmother - smoker grandfather - non smoker. truck loader. Aunt 6. Family history of Breast cancer, [...] negative. Eunice test is negative as well. 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 Neurologic Cranial nerves: Cranial nerves [...] Status:Hold For - Manual Activation; Requested for:14Jun2015; Perform:[facility]; Due:[id number];Ordered; For:Lipid screening; Ordered By:Jun Ivey; 3. AST ( SGOT ); Status:Hold For - Manual Activation; Requested for:14Jun2015; Perform:[facility]; Due:[id number];Ordered; For:Lipid screening; Ordered By:Jun Ivey; 4. Lipid Profile; Status:Hold For - Manual Activation; Requested for:14Jun2015; Perform:[facility]; Due:[id number];Ordered; For:Lipid screening; Ordered By:Jun Ivey; Screening for diabetes mellitus 5. Basic Metabolic Prof ( BMP ); Status:Hold For - Manual Activation; Requested for:14Jun2015; Perform:[facility]; Due:[id number];Ordered; For:Screening for diabetes mellitus; Ordered By:Jun Ivey; 6. Hemoglobin A1C ( HA1C ); Status:Hold For - Manual Activation; Requested for:14Jun2015; Perform:[facility]; Due:[id number];Ordered; For:Screening for diabetes mellitus; Ordered By:Jun Ivey; Physical Therapy Referral Outpatient For: Knee pain, left Status: Need Information - Financial Authorization Requested for: 14Jun2015 Ordered; For: Knee pain, left; Ordered By: Jun Ivey Performed: Order Comments: knee strain. hx of significant left knee surgery with ACL/PCL/meniscal tear in 1997. would appreciate further evaluation /treatment. Due: [id number] Discussion/Summary This is a 35-year-old female who presents for establishment of care. She has the following major issues: 1. KNEE PAIN: I suspect that the patient actually has more of a knee strain rather than any kind ofligamentous damage or meniscal damage. I will get her a knee brace from one of the [employer] medical equipment stores. I will also send [...] I spent 30 minutes at least in [id number] time with this patient in evaluation and assessment of the care of this patient. Signatures Electronically signed by : Jun Ivey M.D.; Jun 17 2015 2:29PM SURVEYING TEACHER (Author) documented in this encounter Plan of Treatment Not on file documented as of this encounter Procedures Procedure Name Priority Date/Time Associated Diagnosis Comments HEMOGLOBIN, GLYCOSYLATED Routine 06/22/2015 9:52 AM SURVEYING TEACHER AST/SGOT Routine 06/22/2015 9:52 AM SURVEYING TEACHER BASIC METABOLIC PANEL Routine 06/22/2015 9:52 AM SURVEYING TEACHER LIPID PANEL Routine 06/22/2015 9:52 AM SURVEYING TEACHER ALT/SGPT Routine 06/22/2015 9:52 AM SURVEYING TEACHER documented in this encounter Results * BASIC METABOLIC PANEL (06/22/2015 9:52 AM SURVEYING TEACHER) GLUCOSE 89 70 - 99 mg/dL [facility] [...] [facility] TO EPIC CONVERSION 06/22/2015 9:52 AM SURVEYING TEACHER 06/22/2015 9:52 AM SURVEYING TEACHER Narrative [facility] TO EPIC CONVERSION - 06/22/2015 4:26 PM SURVEYING TEACHER Result Communication: Call patient with results us Generic Conversion Md [facility] Final R esult [facility] TO EPIC CONVERSION * AST/SGOT (06/22/2015 9:52 AM SURVEYING TEACHER) AST 13 0 - 32 IU/L [facility] TO EPIC CONVERSION 06/22/2015 9:52 AM SURVEYING TEACHER 06/22/2015 9:52 AM SURVEYING TEACHER Narrative [facility] TO EPIC CONVERSION - 06/22/2015 4:26 PM SURVEYING TEACHER Result Communication: Call patient with results Generic Conversion Md [facility] Final R [facility] Performing Organization Address [facility] Co de Phone Number [facility] TO EPIC CONVERSION * HEMOGLOBIN, GLYCOSYLATED (06/22/2015 9:52 AM SURVEYING TEACHER) HGB A1C 5.0 4.8 - 5.6 % [facility] TO EPIC CONVERSION Comment: Result Comment: ?? ADA GUIDELINES 2010 5.7 TO 6.4% INCREASED RISK OF DIABETES > OR = 6.5% CONSISTENT WITH DIABETES ESTIMATED AVG GLUCOSE 97 mg/dL [facility] TO EPIC CONVERSION 06/22/2015 9:52 AM SURVEYING TEACHER 06/22/2015 9:52 AM SURVEYING TEACHER Narrative [facility] TO EPIC CONVERSION - 06/22/2015 3:00 PM SURVEYING TEACHER Result Communication: Call patient with results [employer] Conversion Md [facility] Final [facility] Performing Organization Address [facility] Phone Number [facility] TO EPIC CONVERSION * (ABNORMAL) LIPID PANEL (06/22/2015 9:52 AM SURVEYING TEACHER) Pathologist [facility] CHOLESTEROL 226(H) <200 mg/dL [facility] TO EPIC [...] [facility] TO EPIC CONVERSION 06/22/2015 9:52 AM SURVEYING TEACHER 06/22/2015 9:52 AM SURVEYING TEACHER Narrative [facility] TO EPIC CONVERSION - 06/22/2015 4:26 PM SURVEYING TEACHER Result Communication: Call patient with results us Generic Conversion Md [facility] Final R esult [facility] TO EPIC CONVERSION * ALT/SGPT (06/22/2015 9:52 AM SURVEYING TEACHER) ALT 26 0 - 33 IU/L [facility] TO EPIC CONVERSION 06/22/2015 9:52 AM SURVEYING TEACHER 06/22/2015 9:52 AM SURVEYING TEACHER Narrative [facility] TO EPIC CONVERSION - 06/22/2015 4:26 PM SURVEYING TEACHER Result Communication: Call patient with results us Generic Conversion Md [facility] Final R esjanice Performing Organization Address City/[facility]/ZIP Co de Phone Number [facility] TO EPIC CONVERSION documented in this encounter Visit Diagnoses Not on filedocumented in this encounter Care Teams Environmental Protection Forester Relationship Specialty Start Date End Date Jun [...] - General 07/23/11 Miguel Ángel Olea MD [address] [place] [address] [address] PCP - General FAMILY PRACTICE 07/16/16 documented as of this encounter
--- OUTSIDE RECORDS SUMMARY | 2024-05-29 21:38 | XMS_ITS | Encounter Summary ---
Author Organization [facility] Address [address] [place] [address]. [place], [place] [address] [place] [address] Care Team Providers Care Military Science Instructor Name Role Phone Jun Ivey MD Primary Care Provider Jun Long MD Primary Care Provider Jun Long MD Primary Care Provider Jun Long MD Primary Care Provider Jun Long MD Primary Care Provider Jun Long MD Primary Care Provider Glenroy yap Md Generic Calvin VAUGHN Primary Care Provider Unavailable Dot Shultz DO Primary Care Provider [phone] Miguel Ángel Olea MD Primary Care Provider [phone] Encounter Details Date Type Department Care Team (Late st Contact Info) Description 08/27/1998 Abstract [place] [address] Md Generic MD Calvin Social History Tobacco [...] on filedocumented in this encounter Care Teams Military Science Instructor Relationship Specialty Start Date End Date Jun [...] General 07/23/11 Dot Shultz DO [address] [facility] '[place] [address] PCP - General 01/24/11 07/22/11 Miguel Ángel Olea MD [address] [facility] [address] [place] [address] PCP - General FAMILY PRACTICE 07/16/16 documented as of this encounter
--- OUTSIDE RECORDS SUMMARY | 2024-05-29 21:38 | XMS_ITS | Encounter Summary ---
Author Organization [facility] Address [address] [place] [address]. [place], [place] [address] [place] [address] Care Team Providers Care Voice Professor Name Role Phone Jun Ivey MD Primary Care Provider Jun Long MD Primary Care Provider Jun Long MD Primary Care Provider Jun Long MD Primary Care Provider Jun Long MD Primary Care Provider Jun Long MD Primary Care Provider UnavailMiguel Ángel Garduno MD Primary Care Provider [phone] Encounter Details Date Type Department Care Team (Latest Contact Info) Description 06/20/2015 Abstract [facility] Social History Tobacco Use [...] on filedocumented in this encounter Care Teams Voice Professor Relationship Specialty Start Date End Date Jun Ivey MD PCP - General 07/06/15 07/15/16 Jun Ivey MD PCP - General 07/02/15 07/05/15 Jun Ivey MD PCP - General 06/29/15 07/01/15 Jun Ivey MD PCP - General 06/25/15 06/28/15 Jun Ivey MD PCP - General 06/22/15 06/24/15 Jun Ivey MD PCP - General 06/18/15 06/21/15 Miguel Ángel Olea MD [address] [address] PCP - General FAMILY PRACTICE 07/16/16 documented as of this encounter
--- OUTSIDE RECORDS SUMMARY | 2024-05-29 21:38 | XMS_ITS | Encounter Summary ---
Author Organization [facility] Address [address] [place] [address]. [place], [place] [address] [place] [address] Care Team Providers Care Plunger Machine Operator Name Role Phone Jun Ivey [...] Team (Latest Contact Info) Description 07/06/2014 Abstract [facility] Social History Tobacco [...] on filedocumented in this encounter Care Teams Plunger Machine Operator Relationship Specialty Start Date End [...] General 07/23/11 Miguel Ángel Olea MD [address] [address] PCP - General FAMILY PRACTICE 07/16/16 documented as of this encounter
--- OUTSIDE RECORDS SUMMARY | 2024-05-29 21:38 | XMS_ITS | Encounter Summary ---
Author Organization [facility] Address [address] [place] [address]. [place], [place] [address] [place] [address] Care Team Providers Care Rotary Shear Cutter Name Role Phone Jun Ivey MD Primary Care Provider Jun Long MD Primary Care Provider Jun Long MD Primary Care Provider Jun Long MD Primary Care Provider Jun Long MD Primary Care Provider Jun Long MD Primary Care Provider Nav Mohamud Md, MD Primary Care Provider Unavailable Miguel Ángel Olea MD Primary Care Provider [phone] Encounter Details Date Type Department Care Team (Latest Contact Info) Description 12/16/2013 Abstract [facility] Social History Tobacco [...] filedocumented in this encounter Care Teams Rotary Shear Cutter Relationship Specialty Start Date End Date Jun [...] General 07/23/11 Miguel Ángel Olea MD [address] [address] PCP - General FAMILY PRACTICE 07/16/16 documented as of this encounter
--- OUTSIDE RECORDS SUMMARY | 2024-05-29 21:38 | XMS_ITS | Encounter Summary ---
Author Organization [facility] Address [address] [place] [address]. [place], [place] [address] [place] [address] Care Team Providers Care Core Carrier Name Role Phone Jun Ivey MD Primary Care Provider Jun Long MD Primary Care Provider Jun Long MD Primary Care Provider Jun Long MD Primary Care Provider Jun Long MD Primary Care Provider Jun Long MD Primary Care Provider Glenroy yap Md Generic Calvin VAUGHN Primary Care Provider Unavailable Dot Shultz DO Primary Care Provider [phone] Miguel Ángel Olea MD Primary Care Provider [phone] Encounter Details Date Type Department Care Team (Late st Contact Info) Description 09/07/1997 Abstract [place] [address] Md Generic MD Calvin Social History Tobacco [...] on filedocumented in this encounter Care Teams Core Carrier Relationship Specialty Start Date End Date Jun [...] General 07/23/11 Dot Shultz DO [address] [facility] '[place] [address] PCP - General 01/24/11 07/22/11 Miguel Ángel Olea MD [address] [facility] [address] [place] [address] PCP - General FAMILY PRACTICE 07/16/16 documented as of this encounter
--- OUTSIDE RECORDS SUMMARY | 2024-05-29 21:38 | XMS_ITS | Encounter Summary ---
Author Organization [facility] Address [address] [place] [address]. [place], [place] [address] [place] [address] Care Team Providers Care Software Quality Analyst Name Role Phone Jun Ivey MD Primary Care Provider Jun Long MD Primary Care Provider Jun Long MD Primary Care Provider Jun Long MD Primary Care Provider Jun Long MD Primary Care Provider Jun Long MD Primary Care Provider Glenroy yap Md Generic Calvin VAUGHN Primary Care Provider Unavailable Dot Shultz DO Primary Care Provider Miguel Ángel Olea MD Primary Care Provider [phone] Encounter Details Date Type Department Care Team (Late st Contact Info) Description 08/20/1997 Abstract [place] [address] Md Generic MD Calvin Social History Tobacco [...] on filedocumented in this encounter Care Teams Software Quality Analyst Relationship Specialty Start Date End Date [...] General 07/23/11 Dot Shultz DO [address] [facility] [address] '[place] [address] PCP - General 01/24/11 07/22/11 Miguel Ángel Olea MD [address] [facility] [address] [place] [address] PCP - General FAMILY PRACTICE 07/16/16 documented as of this encounter
--- OUTSIDE RECORDS SUMMARY | 2024-05-29 21:38 | XMS_ITS | Encounter Summary ---
Author Organization [facility] Address [address] [place] [address]. [place], [place] [address] [place] [address] Care Team Providers Care Dry Box Tender Name Role Phone Jun Ivey MD Primary Care Provider Jun Long MD Primary Care Provider Jun Long MD Primary Care Provider Jun Long MD Primary Care Provider Jun Long MD Primary Care Provider Jun Long MD Primary Care Provider UnavailMiguel Ángel Garduno MD Primary Care Provider [phone] Encounter Details Date Type Department Care Team (Latest Contact Info) Description 06/19/2015 Abstract [facility] Social History [...] on filedocumented in this encounter Care Teams Dry Box Tender Relationship Specialty Start Date End Date Jun Ivey MD PCP - General 07/06/15 07/15/16 Jun Ivey MD PCP - General 07/02/15 07/05/15 Jun Ivey MD PCP - General 06/29/15 07/01/15 Jun Ivey MD PCP - General 06/25/15 06/28/15 Jun Ivey MD PCP - General 06/22/15 06/24/15 Jun Ivey MD PCP - General 06/18/15 06/21/15 Miguel Ángel Olea MD [address] [address] PCP - General FAMILY PRACTICE 07/16/16 documented as of this encounter
--- OUTSIDE RECORDS SUMMARY | 2024-05-29 21:38 | XMS_ITS | Encounter Summary ---
Author Organization [facility] Address [address] [place] [address]. [place], [place] [address] [place] [address] Care Team Providers Care B Operator Name Role Phone Jun Ivey MD Primary Care Provider Jun Long MD Primary Care Provider Jun Long MD Primary Care Provider Jun Long MD Primary Care Provider Jun Long MD Primary Care Provider UnavailJun Larios MD Primary Care Provider Unavailrosalinda yap Md, Generic Calvin VAUGHN Primary Care Provider Unavailable Dot Shultz DO Primary Care Provider [phone] Miguel Ángel Olea MD Primary Care Provider Encounter Details Date Type Department Care Team (Late st Contact Info) Description 01/10/1999 Abstract PAIGE CONVERSION [place], [place] [id number] June English, [address] [place], [place] [address] Social History Tobacco Use Types Packs/Day Years [...] on filedocumented in this encounter Care Teams B Operator Relationship Specialty Start Date End Date [...] Shultz DO [address] [place] [address] PCP - General 01/24/11 07/22/11 Miguel Ángel Olea MD [address] [facility] [address] [place], [place] [address] PCP - General FAMILY PRACTICE 07/16/16 documented as of this encounter
--- OUTSIDE RECORDS SUMMARY | 2024-05-29 21:38 | XMS_ITS | Encounter Summary ---
Author Organization [facility] Address [address] [place] [address]. [place], [place] [address] [place] [address] Care Team Providers Care Clinical Pathologist Name Role Phone Jun Ivey MD Primary Care Provider Jun oLng MD Primary Care Provider Jun Long MD Primary Care Provider Jun Long MD Primary Care Provider Jun Long MD Primary Care Provider UnavailJun Larios MD Primary Care Provider Unavailrosalinda yap Md, Nav Simpson MD Primary Care Provider Unavailable Dot Shultz DO Primary Care Provider [phone] Miguel Ángel Olea MD Primary Care Provider [phone] Encounter Details Date Type Department Care Team (Late st Contact Info) Description 09/06/1999 Emergency [facility] Emergency Room [place], [place] [address] June English, [address] [place], [place] [address] Social History Tobacco Use Types Packs/Day Years [...] on filedocumented in this encounter Care Teams Clinical Pathologist Relationship Specialty Start Date End Date Jun [...] General 07/23/11 Dot Shultz DO [address] [place], [place] [id number] PCP - General 01/24/11 07/22/11 Miguel Ángel Olea MD [address] [facility] [address] [place], [place] [address] PCP - General FAMILY PRACTICE 07/16/16 documented as of this encounter
--- OUTSIDE RECORDS SUMMARY | 2024-05-29 21:38 | XMS_ITS | Encounter Summary ---
Author Organization [facility] Address [address] [place] [address]. [place], [place] [address] [place] [address] Care Team Providers Care Quill Worker Name Role Phone Jun Ivey MD Primary Care Provider Jun Long MD Primary Care Provider Jun Long MD Primary Care Provider Jun Long MD Primary Care Provider Jun Long MD Primary Care Provider Jun Long MD Primary Care Provider Nav Mohamud Md, MD Primary Care Provider Unavailable Miguel Ángel Olea MD Primary Care Provider [phone] Encounter Details Date Type Department Care Team (Late st Contact Info) Description 07/23/[address] [address] [place] [address] Nav Waddell MD Social History Tobacco Use [...] tonsillitis documented in this encounter Care Teams Quill Worker Relationship Specialty Start Date End Date [...] General 07/23/11 Miguel Ángel Olea MD [address] [address] PCP - General FAMILY PRACTICE 07/16/16 documented as of this encounter
--- OUTSIDE RECORDS SUMMARY | 2024-05-29 21:40 | XMS_ITS | Encounter Summary ---
Author Organization [facility] Address [address] [place]: Epic Prelude [place]T [place] [address] Care Team Providers Care Clinical Coder Name Role Phone Jai Guadarrama MD Primary Care Provider +1- [phone] Encounter Details Date Type Department Care Team (Late st Contact Info) Description 06/04/2022 External Device Data Initial Department [address] [place]: [place] [address] [facility] [place] [facility], Social History Tobacco [...] Coronavirus/COVID-19? No / Unsure 05/22/2022 9:35 AM FASHION STYLING INTERN documented as of this encounter Plan of Treatment Not on file documented as of this encounter Visit Diagnoses Not on filedocumented in this encounter Care Teams Clinical Coder Relationship Specialty [place] [address] [place] [phone] PCP - General Internal Medicine 04/08/21 documented as of this encounter
--- OUTSIDE RECORDS SUMMARY | 2024-05-29 21:40 | XMS_ITS | Encounter Summary ---
Author Organization [facility] Address [address] [place]: Epic Prelude ADT [place] [address] Care Team Providers Care Account Group Supervisor Name Role Phone Jai Guadarrama MD Primary Care Provider +1- [phone] Encounter Details Date Type Department Care Team (Late st Contact Info) Description 05/13/2023 External Device Data Initial Department [address] [place]: [place] [address] [facility] [place] [place] Social History Tobacco Use Types [...] on filedocumented in this encounter Care Teams Account Group Supervisor Relationship Specialty [place] [address] [place] [phone] PCP - General Internal Medicine 04/08/21 documented as of this encounter
--- OUTSIDE RECORDS SUMMARY | 2024-05-29 21:40 | XMS_ITS | Encounter Summary ---
Author Organization [facility] Address [address] [place] [address] Care Team Providers Care Foreign Clerk Name Role Phone Jai Guadarrama MD Primary Care Provider +1- [phone] Encounter Details Date Type Department Care Team [...] on filedocumented in this encounter Care Teams Foreign Clerk Relationship Specialty [place] [address] [facility] [address] [place] [phone] PCP - General Internal Medicine 04/08/21 documented as of this encounter
--- OUTSIDE RECORDS SUMMARY | 2024-05-29 21:40 | XMS_ITS | Encounter Summary ---
Author Organization [facility] Address [address] [place] [address] Care Team Providers Care Bindery Manager Name Role Phone Jai Guadarrama MD Primary Care Provider +1- [phone] Reason for Visit * Reason Onset Date [facility] Encounter Details Date Type Department Care Team (Late st Contact Info) Description 06/04/2022 Telephone [facility] [address] [place] [address] Carole Turner, [facility] [address] [place] [address] [facility] Social History Tobacco Use Types Packs/Day Years [...] Coronavirus/COVID-19? No / Unsure 05/22/2022 9:35 AM BOOK JACKET COVER MACHINE OPERATOR documented as of this encounter Miscellaneous Notes * Telephone Encounter - Carole Bernal FNP - 06/04/2022 4:07 PM BOOK JACKET COVER MACHINE OPERATOR vAcute Interaction Note: Called patient regarding Care[employer] survey response. Patient enrolled in Post Discharge program. Patient reported feeling worse. Patient states issue was taken care of by PCP office. Advised to call for any other questions or calls. MICHAEL Knight vAcute Visit was completed by: Phone JACKET COVER MACHINE OPERATOR documented in this encounter Plan of Treatment Not on file documented as of this encounter Visit Diagnoses Not on filedocumented in this encounter Care Teams Bindery Manager Relationship Specialty [place] [address] [facility] [address] [place] [phone] PCP - General Internal Medicine 04/08/21 documented as of this encounter
--- OUTSIDE RECORDS SUMMARY | 2024-05-29 21:40 | XMS_ITS | Clinical Summary ---
Author Organization [facility] Address [address] [place] [address] Phone Care Team Providers Care Before School Name Role Phone Jai Guadarrama MD Primary Care Provider +1- [phone] Allergies No known active allergies Medications Medication [...] 2 05/05/2022 Active naloxone (NARCAN) 4 mg/spray [place], Non-Aerosol EMERGENCY USE ONLY: Administer 1 spray [...] 05/05/20222022 Immunizations Name Administration Dates Next Due ([employer])(12 YR UP) COVID-19 VACCINE - EMERGENCY USE AUTHORIZATION, MRNA, [id number](PF) 30 MCG/0.3 ML IM SUSP 08/16/2020,07/27/2020 Influenza [...] Comments Blood Pressure 118/80 07/24/2022 2:59 PM SALESPERSON BURIAL NEEDS Pulse 98 07/24/2022 2:59 PM SALESPERSON BURIAL NEEDS Temperature 35.3 ??C (95.5 ??F) 07/24/2022 2:59 PM CS T Respiratory Rate 16 05/13/2022 8:44 AM SALESPERSON BURIAL NEEDS Oxygen Saturation 99% 07/24/2022 2:59 PM SALESPERSON BURIAL NEEDS Inhaled Oxygen Concentration - - Weight 95.3 kg (210 lb) 07/24/2022 2:59 PM SALESPERSON BURIAL NEEDS Height 162.6 cm (5' 4 ) 07/24/2022 2:59 PM SALESPERSON BURIAL NEEDS Body Mass Index 36.05 07/24/2022 2:59 PM SALESPERSON BURIAL NEEDS Plan of Treatment Health Maintenance Due Date [...] this topic Medical Devices Implanted Type Area Sales Representative Device Identifier Shelf Expiration Date Model / [...] CAD DATE: 10/30/2021 7:25 AM DICTATION LOCATION: [facility] HISTORY: Routine yearly screening exam. TECHNIQUE: Low-dose [...] CAD DATE: 10/30/2021 7:25 AM DICTATION LOCATION: [facility] HISTORY: Routine yearly screening exam. TECHNIQUE: Low-dose [...] Advance Directives For more information, please contact: [phone] * Full Code (Latest Code Status on File) Date Activated Date Inactivated Comments 05/05/2022 4:21 PM 05/06/2022 5:24 PM * Full Code Date Activated Date Inactivated Comments 05/05/2022 8:46 AM 05/05/2022 4:21 PM Care Teams Before School Relationship Specialty [place] [address] [facility] [address] [place] [phone] PCP - General Internal Medicine 04/08/21
--- OUTSIDE RECORDS SUMMARY | 2024-05-29 21:40 | XMS_ITS | Encounter Summary ---
Author Organization [facility] Address [address] [place] [address] Care Team Providers Care Distribution Driver Name Role Phone Jai Guadarrama MD Primary Care Provider +1- [phone] Encounter Details Date Type Department Care Team [...] on filedocumented in this encounter Care Teams Distribution Driver Relationship Specialty [place] [address] [facility] [address] [place] [phone] PCP - General Internal Medicine 04/08/21 documented as of this encounter
--- OUTSIDE RECORDS SUMMARY | 2024-05-29 21:40 | XMS_ITS | Encounter Summary ---
Author Organization [facility] Address [address] [place] [address] Care Team Providers Care Anthropology Lecturer Name Role Phone Jai Guadarrama MD Primary Care Provider +1- [phone] Reason for Visit * Reason Comments Post-op Visit Encounter Details Date Type Department Care Team (Late st Contact Info) Description 05/22/2022 1:15 PM TELETYPE ADJUSTER Office Visit [facility] [place] [address] [place] [address] Jerrell Byrd, DO [address] [place] [address] S/P laparoscopic sleeve gastrectomy (Primary [...] Coronavirus/COVID-19? No / Unsure 05/22/2022 9:35 AM TELETYPE ADJUSTER documented as of this encounter Last Filed Vital Signs Vital Sign Reading Time Taken Comments Blood Pressure 109/75 05/22/2022 2:13 PM TELETYPE ADJUSTER Pulse - - Temperature - - Respiratory Rate - - Oxygen Saturation - - Inhaled Oxygen Concentration - - Weight 104.6 kg (230 lb 9.6 oz) 05/22/2022 2:13 PM TELETYPE ADJUSTER Height 162.6 cm (5' 4 ) 05/22/2022 2:13 PM TELETYPE ADJUSTER Body Mass Index 39.58 05/22/2022 2:13 PM TELETYPE ADJUSTER documented in this encounter Progress Notes * Jerrell Byrd, DO - 05/22/2022 1:15 PM CST Images from the original note were not included. Patient: Renata Lei : 1980 [facility] [address] [place] [address], [address] [place] [address] INITIAL POST-OPERATIVE VISIT Time Since Surgery: 2 [...] kg (230 lb 9.6 oz) (05/22/22 1413) [place] body weight: 54.7 kg (120 lb 9.5 [...] - Education: Continue to follow-up with bariatric bottom ironer/dietitian. Continue previous medications as prescribed. Continue to [...] to education today. MEET Waite DO 05/22/2022 TYPE ADJUSTER documented in this encounter Plan of Treatment Not on file documented as of this encounter Visit Diagnoses Diagnosis S/P laparoscopic sleeve gastrectomy- Primary Obesity (BMI 30-39.9) Obesity, unspecified Hypercholesterolemia Pure hypercholesterolemia Frequent headaches Chronic joint pain Pain in joint, site unspecified Anxiety Anxiety state, unspecified documented in this encounter Care Teams Anthropology Lecturer Relationship Specialty Start [place] [address] [facility] [address] [place] [phone] PCP - General Internal Medicine 04/08/21 documented as of this encounter
--- OUTSIDE RECORDS SUMMARY | 2024-05-29 21:40 | XMS_ITS | Encounter Summary ---
Author Organization [facility] Address [address] [place]: Epic [place] [address] Care Team Providers Care Termite Treater Helper Name Role Phone Jai Guadarrama MD Primary Care Provider +1- [phone] Encounter Details Date Type Department Care Team [...] Coronavirus/COVID-19? No / Unsure 05/22/2022 9:35 AM WORKERS' COMPENSATION MEDIATOR documented as of this encounter Plan of Treatment Not on file documented as of this encounter Visit Diagnoses Not on filedocumented in this encounter Care Teams Termite Treater Helper Relationship Specialty [place] [address] [place] [phone] PCP - General Internal Medicine 04/08/21 documented as of this encounter
--- OUTSIDE RECORDS SUMMARY | 2024-05-29 21:40 | XMS_ITS | Encounter Summary ---
Author Organization [facility] Address [address] [place] [address] Care Team Providers Care Clerical Stock Inspector Name Role Phone Jia Guadarrama MD Primary Care Provider +1- [phone] Reason for Visit * Reason Onset Date Comments Erroneous encounter-disregard 07/24/2022 Encounter Details Date Type Department Care Team (Late st Contact Info) Description 07/24/2022 Telephone [facility] Internal Medicine Angelica Jimenez [address] [place] [address] [place] [address] [place] [address] Erroneous encounter-disregard Social History Tobacco Use [...] Coronavirus/COVID-19? No / Unsure 07/24/2022 2:37 PM AGRICULTURAL RESEARCHER documented as of this encounter Plan of Treatment Not on file documented as of this encounter Visit Diagnoses Not on filedocumented in this encounter Care Teams Clerical Stock Inspector Relationship Specialty [place] [address] [facility] [address] [place] [address] PCP - General Internal Medicine 04/08/21 documented as of this encounter
--- OUTSIDE RECORDS SUMMARY | 2024-05-29 21:40 | XMS_ITS | Encounter Summary ---
Author Organization [facility] Address [address] [place]: Epic Prelude ADT [place] [address] Care Team Providers Care Rn Training Name Role Phone Jai Guadarrama MD Primary Care Provider +1- [phone] Encounter Details Date Type Department Care Team (Late st Contact Info) Description 05/21/2022 External Device Data Initial Department [address] [place]: [place] [address] [facility], Social History Tobacco Use Types Packs/Day [...] Coronavirus/COVID-19? No / Unsure 05/22/2022 9:35 AM HEAD BANQUET WAITER/WAITRESS documented as of this encounter Plan of Treatment Not on file documented as of this encounter Visit Diagnoses Not on filedocumented in this encounter Care Teams Rn Training Relationship Specialty [place] [address] [place] [phone] PCP - General Internal Medicine 04/08/21 documented as of this encounter
--- OUTSIDE RECORDS SUMMARY | 2024-05-29 21:40 | XMS_ITS | Encounter Summary ---
Author Organization [facility] Address [address] [place] [address] Care Team Providers Care Canal Boat Operator Name Role Phone Jai Guadarrama MD Primary Care Provider +1- [phone] Reason for Visit * Reason Comments Post-op Visit Follow Up Encounter Details Date Type Department Care Team (Late st Contact Info) Description 07/17/2022 2:15 PM RANGE MASTER Office Visit [facility] Surgical Spec [place] [address] [place] [address] Jerrell Byrd, DO [address] [place] [address] S/P laparoscopic sleeve gastrectomy (Primary [...] Comments Blood Pressure 120/80 07/17/2022 2:37 PM RANGE MASTER Pulse - - Temperature - - Respiratory Rate - - Oxygen Saturation - - Inhaled Oxygen Concentration - - Weight 96.1 kg (211 lb 12.8 oz) 07/17/2022 2:37 PM RANGE MASTER Height 162.6 cm (5' 4 ) 07/17/2022 2:37 PM RANGE MASTER Body Mass Index 36.36 07/17/2022 2:37 PM RANGE MASTER documented in this encounter Progress Notes * Jerrell Byrd, DO - 07/17/2022 2:15 PM CST Images from the original note were not included. Patient: Renata Lei : [address] [facility] [address] [place] [address] POST-OPERATIVE VISIT Visit: 2 MONTHS Surgical Procedure: [...] kg (211 lb 12.8 oz) (07/17/22 1437) [place]erson body weight: 54.7 kg (120 lb 9.5 [...] arise; and continue to follow-up with bariatric laborer laboratory. There are no barriers to education today. [...] above outlined plan. Elias Byrd DO 07/17/2022 E MASTER documented in this encounter Plan of Treatment Not on file documented as of this encounter Procedures Procedure Name Priority Date/Time Associated Diagnosis Comments ZINC LEVEL Routine 07/15/2022 11:54 AM RANGE MASTER S/P laparoscopic sleeve gastrectomy VITAMIN B12 AND FOLATE Routine 07/15/2022 11:54 AM RANGE MASTER S/P laparoscopic sleeve gastrectomy IRON, TIBC, AND PERCENT SATURATION Routine 07/15/2022 11:54 AM RANGE MASTER S/P laparoscopic sleeve gastrectomy VITAMIN D 25 HYDROXY Routine 07/15/2022 11:54 AM RANGE MASTER S/P laparoscopic sleeve gastrectomy TRANSFERRIN Routine 07/15/2022 11:54 AM RANGE MASTER S/P laparoscopic sleeve gastrectomy TSH Routine 07/15/2022 11:54 AM RANGE MASTER S/P laparoscopic sleeve gastrectomy VITAMIN B1 LEVEL Routine 07/15/2022 11:5 4 AM RANGE MASTER S/P laparoscopic sleeve gastrectomy HEMOGLOBIN A1C Routine 07/15/2022 11:54 AM RANGE MASTER S/P laparoscopic sleeve gastrectomy COMPREHENSIVE METABOLIC PANEL Routine 07/15/2022 11:54 AM RANGE MASTER S/P laparoscopic sleeve gastrectomy documented in this encounter Results * TRANSFERRIN (07/15/2022 11:54 AM RANGE MASTER) TRANSFERRIN 201 188 - 341 mg/dL [facility] Comment: Test Performed at: [facility] [address] [place], [place] ??[address] Dangelo Figueroa MD Blood 07/15/2022 11:5 4 AM RANGE MASTER 07/15/2022 11:55 AM RANGE MASTER Jerrell Byrd DO CHEMISTRY ORDERABLES [facility] [phone] [facility] [address] [place] [address] * IRON, TIBC, AND PERCENT SATURATION (07/15/2022 11:54 AM RANGE MASTER) IRON 49 40 - 190 mcg/dL [facility] TIBC 271 250 - 450 mcg/dL (calc) [facility] IRON % SATURATION 18 16 - 45 % (calc) [facility] Comment: Test Performed at: [address] ??[address] Dangelo Figueroa MD Blood 07/15/2022 11:5 4 AM RANGE MASTER 07/15/2022 11:55 AM RANGE MASTER Jerrell Byrd DO CHEMISTRY ORDERABLES Performing Organization Address City/[facility] [[email or web address]] Co de Phone Number [facility] [phone] [address] * TSH (07/15/2022 11:54 AM RANGE MASTER) TSH 0.66 mIU/L [facility] Comment: ?Reference Range ?> or = 20 Years ??0.40-4.50 ? Ranges ?First trimester ?0.26-2.66 ?Second trimester ?? 0.55-2.73 ?Third trimester ?0.43-2.91 Test Performed at: [address] ??[address] Dangelo Figueroa MD Blood 07/15/2022 11:5 4 AM RANGE MASTER 07/15/2022 11:55 AM RANGE MASTER Jerrell Byrd DO CHEMISTRY ORDERABLES Performing Organization Address City/[facility]/ZIP Co de Phone Number [facility] [phone] [address] * VITAMIN B1 LEVEL (07/15/2022 11:54 AM RANGE MASTER) Pathologist [facility] VITAMIN B1 92 78 - 185 nmol/L [email or web address] Comment: Vitamin supplementation within 24 hours prior to blood draw may affect the accuracy of results. This test was developed and its analytical performance characteristics have been determined by [facility]. It has not been cleared or approved by the FDA. This assay has been validated pursuant to the CLIA regulations and is used for clinical purposes. Test Performed at: [facility] [id number] [place] [address] ??[id number] Armando Calvin M.D. Blood 07/15/2022 11:5 4 AM RANGE MASTER 07/15/2022 11:55 AM RANGE MASTER Jerrell Byrd DO CHEMISTRY ORDERABLES [facility] [phone] [facility] [address] [place] [address] * (ABNORMAL) VITAMIN B12 AND FOLATE (07/15/2022 11:54 AM RANGE MASTER) [facility] VITAMIN B12 366 200 - 1100 pg/mL [facility] Comment: Please Note: Although the reference [...] ?3.4-5.4 ? Normal: ?>5.4 Test Performed at: [facility] ??[address] Dangelo Figueroa MD Blood 07/15/2022 11:5 4 AM RANGE MASTER 07/15/2022 11:55 AM RANGE MASTER Jerrell Byrd DO CHEMISTRY ORDERABLES [facility] [phone] [address] * VITAMIN D 25 HYDROXY (07/15/2022 11:54 AM RANGE MASTER) VITAMIN D, 25 OH, TOTAL 33 30 - 100 ng/mL [facility] Comment: Vitamin D Status ? 25-OH Vitamin D: Deficiency: ?<20 ng/mL Insufficiency: ? 20 - 29 ng/mL Optimal: ? > or = 30 ng/mL For 25-OH Vitamin D testing on patients on D2-supplementation and patients for whom quantitation of D2 and D3 fractions is required, the [facility]() 25-OH VIT D, (D2,D3), LC/MS/MS is recommended: order code 37333 (patients >2yrs). See Note 1 Note 1 For additional information, please refer to http://education.Hoot.Me.[address]/faq/PZI181 (This link is being provided for informational/ educational purposes only.) Test Performed at: [facility] ??[address] Dangelo Figueroa MD Blood 07/15/2022 11:5 4 AM RANGE MASTER 07/15/2022 11:55 AM RANGE MASTER Jerrell Byrd DO CHEMISTRY ORDERABLES Performing Organization Address City/State/[facility] [[email or web address]] Co de Phone Number [facility] [phone] [facility] [address] [place] [address] * ZINC LEVEL (07/15/2022 11:54 AM RANGE MASTER) ZINC LEVEL 72 60 - 130 mcg/dL [facility] Comment: This test was developed and its analytical performance characteristics have been determined by [facility]. It has not been cleared or approved by the FDA. This assay has been validated pursuant to the CLIA regulations and is used for clinical purposes. Test Performed at: [facility] ??[address] Shyam Serina Roberts Blood 07/15/2022 11:5 4 AM RANGE MASTER 07/15/2022 11:55 AM RANGE MASTER Jerrell Byrd DO CHEMISTRY ORDERABLES Performing Organization Address [facility] [[email or web address]] Co de Phone Number [facility] [phone] [address] * HEMOGLOBIN A1C (07/15/2022 11:54 AM RANGE MASTER) Pathologist [facility] HEMOGLOBIN A1C 5.1 <5.7 % of total Hgb [facility] Comment: For the purpose of screening for the presence of diabetes: <5.7% ? Consistent with the absence of diabetes 5.7-6.4% ?Consistent with increased risk for diabetes ?(prediabetes) > or =6.5% ??Consistent with diabetes This assay result is consistent with a decreased risk of diabetes. Currently, no consensus exists regarding use of hemoglobin A1c for diagnosis of diabetes in children. According to [place] Diabetes Association (ADA) guidelines, hemoglobin A1c <7.0% represents optimal control in non- diabetic patients. Different metrics may apply to specific patient populations. Standards of Medical Care in Diabetes(ADA). ?? ESTIMATED AVERAGE GLUCOSE (MG/DL) 100 mg/dL [facility] ESTIMATED AVERAGE GLUCOSE (MMOL/L) 5.5 mmol/L [facility] Comment: Test Performed at: [place] [address] [place] ??[address] Dangelo Figueroa Blood 07/15/2022 11:5 4 AM RANGE MASTER 07/15/2022 11:55 AM RANGE MASTER Jerrell Byrd DO CHEMISTRY ORDERABLES [facility] [phone] [place] [address] [place] [address] * (ABNORMAL) COMPREHENSIVE METABOLIC PANEL (07/15/2022 11:54 AM RANGE MASTER) GLUCOSE 96 65 - 99 mg/dL [facility] Comment: ? Fasting reference interval BUN 11 7 - 25 mg/dL [facility] CREATININE 0.65 0.50 - 0.99 mg/dL [facility] GFR 113 > OR = 60 mL/min/[address] [facility] Comment: The eGFR is based on the CKD-EPI 2020 equation. To calculate the new eGFR from a previous Creatinine or Cystatin C result, go to https://www.kidney.org/professionals/ kdoqi/gfr%5Fcalculator BUN/CREAT RATIO NOT APPLICABLE 6 - 22 (calc) [facility] SODIUM 136 135 - 146 mmol/L [facility] POTASSIUM 4.5 3.5 - 5.3 mmol/L [facility] CHLORIDE 104 98 - 110 mmol/L [facility] CO2 26 20 - 32 mmol/L [facility] CALCIUM 9.4 8.6 - 10.2 mg/dL [facility] TOTAL PROTEIN 6.4 6.1 - 8.1 g/dL [facility] ALBUMIN 4.1 3.6 - 5.1 g/dL [facility] GLOBULIN 2.3 1.9 - 3.7 g/dL (calc) [facility] ALBUMIN/GLOBULIN RATIO 1.8 1.0 - 2.5 (calc) [facility] BILIRUBIN TOTAL 0.6 0.2 - 1.2 mg/dL [facility] ALKALINE PHOSPHATASE 62 31 - 125 U/L [facility] AST 19 10 - 30 U/L [facility] ALT 39(H) 6 - 29 U/L [facility] Comment: Test Performed at: [place] [address] [place] ??[address] Dangelo Figueroa Blood 07/15/2022 11:5 4 AM RANGE MASTER 07/15/2022 11:55 AM RANGE MASTER Jerrell Byrd DO CHEMISTRY ORDERABLES [facility] [phone] [place] [address] [place] [address] documented in this encounter Visit Diagnoses Diagnosis S/P laparoscopic sleeve gastrectomy- Primary Postoperative visit Obesity (BMI 30-39.9) Obesity, unspecified documented in this encounter Care Teams Canal Boat Operator Relationship Specialty [place] [address] [place] [phone] PCP - General Internal Medicine 04/08/21 documented as of this encounter
--- OUTSIDE RECORDS SUMMARY | 2024-05-29 21:40 | XMS_ITS | Encounter Summary ---
Author Organization [facility] Address [address] [place] [address] Care Team Providers Care Fire Production Operator Name Role Phone Jai Guadarrama MD Primary Care Provider +1- [phone] Reason for Visit * Reason Comments Post-op Visit Encounter Details Date Type Department Care Team (Latest Contact Info) Description 05/22/2022 10:00 AM MEDICAL ECONOMICS CONSULTANT Office Visit [facility] Plastic Surgery and Burn [address] [address] Santana Lake MD [address] [facility] [address] [place] [address] Postoperative follow-up (Primary Dx); Carpal [...] Coronavirus/COVID-19? No / Unsure 05/22/2022 9:35 AM MEDICAL ECONOMICS CONSULTANT documented as of this encounter Last Filed Vital Signs Vital Sign Reading Time Taken Comments Blood Pressure 109/75 05/22/2022 9:41 AM MEDICAL ECONOMICS CONSULTANT Pulse - - Temperature - - Respiratory Rate - - Oxygen Saturation - - Inhaled Oxygen Concentration - - Weight 103.4 kg (228 lb) 05/22/2022 9:41 AM MEDICAL ECONOMICS CONSULTANT Height 162.6 cm (5' 4 ) 05/22/2022 9:41 AM MEDICAL ECONOMICS CONSULTANT Body Mass Index 39.14 05/22/2022 9:41 AM MEDICAL ECONOMICS CONSULTANT documented in this encounter Progress Notes * Santana Lake MD - 05/22/2022 10:00 AM CST [facility] Plastic and Hand Surgery Surgery: DATE OF SERVICE: 05/13/2022 NAME: Renata Lei : 1980 CSN: [id number] SURGEON Santana Lake MD. PREOPERATIVE DIAGNOSIS Right [...] and answered. The patient will call our office/production recovery operator or go to the nearest emergency room if they have any questions, worsening pain, fevers, redness, chills or other concerning questions. Santana Lake M.D. Hand and Plastic Surgeon [facility] Plastic Surgery This note is prepared by Sofia Be acting as scribe for Dr. Santana Lake at 10:12 am on 05/22/2022 . CAL ECONOMICS CONSULTANT documented in this encounter Plan of Treatment Not on file documented as of this encounter Visit Diagnoses Diagnosis Postoperative follow-up- Primary Follow-up examination, following unspecified surgery Carpal tunnel syndrome of right wrist Carpal tunnel syndrome Carpal tunnel syndrome of left wrist Carpal tunnel syndrome documented in this encounter Care Teams Fire Production Operator Relationship Specialty [place] [address] [place] [address] [place] [phone] PCP - General Internal Medicine 04/08/21 documented as of this encounter
--- OUTSIDE RECORDS SUMMARY | 2024-05-29 21:40 | XMS_ITS | Encounter Summary ---
Author Organization [facility] Address [address] [place] [address] Care Team Providers Care Professional Athlete Name Role Phone Jai Guadarrama MD Primary Care Provider +1- [phone] Encounter Details Date Type Department Care Team [...] on filedocumented in this encounter Care Teams Professional Athlete Relationship Specialty [place] [address] [facility] [address] [place] [phone] PCP - General Internal Medicine 04/08/21 documented as of this encounter
--- OUTSIDE RECORDS SUMMARY | 2024-05-29 21:40 | XMS_ITS | Encounter Summary ---
Author Organization [facility] Address [address] [place] [address] Care Team Providers Care Patient Care Provider Name Role Phone Jai Guadarrama MD Primary Care Provider +1- [phone] Reason for Visit * Auth/Cert (Routine) Specialty Diagnoses / Procedures Referred By Rigoberto t Referred To Contact Perioperative Diagnoses RIGHT CARPAL TUNNEL SYNDROME Procedures MD WRIST ARTHROSCOP,RELEASE XVERS LIG MD WRIST ARTHROSCOP,RELEASE XVERS LIG MD REVISE MEDIAN N/CARPAL TUNNEL SURG CARPAL TUNNEL RELEASE ENDOSCOPIC [facility] Main Or [address] [place] [address] Referral ID Status Reason Start Date Expiration Date Visits Re quested Visits Authorized [id number] 1 1 Encounter Details Date Type Department Care Team (Late st Contact Info) Description 05/13/2022 8:13 AM CHARGE ACCOUNT IDENTIFICATION CLERK Anesthesia Event [facility] Operating Room [address] [place] [address] Ramón Shanks MD [address] [place] [address] Anesthesia Record Procedure Summary Procedure [...] Coronavirus/COVID-19? No / Unsure 05/08/2022 8:27 AM CHARGE ACCOUNT IDENTIFICATION CLERK documented as of this encounter OR Notes * Anesthesia Procedure Notes - Ramón Shanks MD - 05/13/2022 8:13 AM CHARGE ACCOUNT IDENTIFICATION CLERK Associated Order(s): Peripheral Block Supraclavicular Block Patient location during procedure: Pre-op Start time: 05/13/2022 7:25 AM End time: 05/13/2022 7:35 AM Reason for block: at surgeon's request, post-op pain management and primary anesthetic Staffing Performed By: Anesthesiologist: Ramón Shanks MD Pocket Machine Operator: Roverto Britton PA-C Preanesthetic Checklist Completed: patient [...] Extremity Block Laterality: Right Injection technique: Single-shot Quesada Identification: ultrasound guided Local infiltration anesthetic: Lidocaine [...] and immediately following procedure and stable throughout. GE ACCOUNT IDENTIFICATION CLERK documented in this encounter Plan of Treatment Not on file documented as of this encounter Procedures Procedure Name Priority Date/Time Associated Diagnosis Comments MD ANESTHESIA BLOCK PB PLACEHOLDER CHARGE Routine 05/13/2022 8:13 AM CHARGE ACCOUNT IDENTIFICATION CLERK documented in this encounter Results * MD ANESTHESIA BLOCK PB PLACEHOLDER CHARGE (05/13/2022 8:13 AM CHARGE ACCOUNT IDENTIFICATION CLERK) Narrative Ramón Shanks MD - 05/13/2022 8:13 AM CHARGE ACCOUNT IDENTIFICATION CLERK Ramón Shanks MD ? 05/13/2022 ??8:14 AM Supraclavicular Block Patient location during procedure: Pre-op Start time: 05/13/2022 7:25 AM End time: 05/13/2022 7:35 AM Reason for block: at surgeon's request, post-op pain management and primary anesthetic Staffing Performed By: Anesthesiologist: Ramón Shanks MD Pocket Machine Operator: Roverto Britton PA-C Preanesthetic Checklist Completed: patient [...] Extremity Block Laterality: Right Injection technique: Single-shot Quesada Identification: ultrasound guided Local infiltration anesthetic: Lidocaine [...] Routine, Anesthesia Intra-op Given 05/13/2022 7:34 AM CHARGE ACCOUNT IDENTIFICATION CLERK 12.5 mL mepivacaine PF (CARBOCAINE,POLOCAINE) 15 mg/mL (1.5%) injection Infiltration, INTRA-PROCEDURE PRN, Starting on Thu05/13/22 at 0734, Until Bettie 05/15/22 at 2333, Routine, Anesthesia Intra-op Given 05/13/2022 7:34 AM CHARGE ACCOUNT IDENTIFICATION CLERK 12.5 mL midazolam (VERSED) injection IV, INTRA-PROCEDURE PRN, Starting on Thu05/13/22 at 0725, Until Bettie 05/15/22 at 2333, Routine, Anesthesia Intra-op Given 05/13/2022 7:25 AM CHARGE ACCOUNT IDENTIFICATION CLERK 2 mg documented in this encounter Care Teams Patient Care Provider Relationship Specialty [place] [address] [facility] [address] [place] [phone] PCP - General Internal Medicine 04/08/21 documented as of this encounter
--- OUTSIDE RECORDS SUMMARY | 2024-05-29 21:40 | XMS_ITS | Encounter Summary ---
Author Organization [facility] Address [address] [place]: Epic Prelude ADT [place] [address] Care Team Providers Care Wrecker Driver Name Role Phone Jai Guadarrama MD Primary Care Provider +1- [phone] Encounter Details Date Type Department Care Team [...] Coronavirus/COVID-19? No / Unsure 07/24/2022 2:37 PM JAIL MANAGER documented as of this encounter Plan of Treatment Not on file documented as of this encounter Visit Diagnoses Not on filedocumented in this encounter Care Teams Wrecker Driver Relationship Specialty [place] [address] [place] [address] PCP - General Internal Medicine 04/08/21 documented as of this encounter
--- OUTSIDE RECORDS SUMMARY | 2024-05-29 21:40 | XMS_ITS | Encounter Summary ---
Author Organization [facility] Address [address] [place] [address] Care Team Providers Care Computer Security Coordinator Name Role Phone Jai Guadarrama MD Primary Care Provider +1- [phone] Reason for Visit * Reason Onset Date Comments Medication Refill 03/16/2023 Encounter Details Date Type Department Care Team (Late st Contact Info) Description 03/16/2023 Refill [facility] Internal Medicine Angelica Jimenez [address] [place] [address] [place] [address] [address] [place] [address] Anxiety state [...] unspecified documented in this encounter Care Teams Computer Security Coordinator Relationship Specialty [place] [address] [address] [place] [address] PCP - General Internal Medicine 04/08/21 documented as of this encounter
--- OUTSIDE RECORDS SUMMARY | 2024-05-29 21:40 | XMS_ITS | Encounter Summary ---
Author Organization [facility] Address [address] [place] [address] Care Team Providers Care Aesthetician Name Role Phone Jai Guadarrama MD Primary Care Provider +1- [phone] Encounter Details Date Type Department Care Team (Late st Contact Info) Description 06/06/2022 Orders Only [facility] Internal Medicine Angelica Tony [address] [facility] [address] [place] [address] [place] [address] [place] [address] Social History Tobacco Use Types Packs/Day [...] Coronavirus/COVID-19? No / Unsure 05/22/2022 9:35 AM ANTIQUE DEALER documented as of this encounter Progress Notes [...] proceed to ED if flank pain worsens QUE DEALER documented in this encounter Plan of Treatment Not on file documented as of this encounter Visit Diagnoses Not on filedocumented in this encounter Care Teams Aesthetician Relationship Specialty [place] [address] [facility] [address] [place] [phone] PCP - General Internal Medicine 04/08/21 documented as of this encounter
--- OUTSIDE RECORDS SUMMARY | 2024-05-29 21:40 | XMS_ITS | Encounter Summary ---
Author Organization [facility] Address [address] [place] [address] Care Team Providers Care Mergers And Acquisitions Attorney Name Role Phone Jai Guadarrama MD Primary Care Provider +- [phone] Reason for Referral * Eval and Treat (Routine) - Closed Specialty Diagnoses / Procedures Referred By Contac t Referred To Contact Neurology Diagnoses Migraine without status migrainosus, not intractable, unspecified [place] [address] [address] [place] [address] [facility] Neurology [address] [address] Referral ID Status Reason Start Date Expiration Date Visits Re quested Visits Authorized [id number] Closed 07/24/2022 07/24/2023 1 1 F JAILER Reason for Visit * Reason Comments Physical Encounter Details Date Type Department Care Team (Late st Contact Info) Description 07/24/2022 3:00 PM CHIEF JAILER Office Visit [facility] Internal Medicine Angelica Tony [address] [place] [address] [place] [address] [address] [place] [address] Encounter for routine adult health examination [...] Coronavirus/COVID-19? No / Unsure 07/24/2022 2:37 PM CHIEF JAILER documented as of this encounter Last Filed Vital Signs Vital Sign Reading Time Taken Comments Blood Pressure 118/80 07/24/2022 2:59 PM CHIEF JAILER Pulse 98 07/24/2022 2:59 PM CHIEF JAILER Temperature 35.3 ??C (95.5 ??F) 07/24/2022 2:59 PM CS T Respiratory Rate - - Oxygen Saturation 99% 07/24/2022 2:59 PM CHIEF JAILER Inhaled Oxygen Concentration - - Weight 95.3 kg (210 lb) 07/24/2022 2:59 PM CHIEF JAILER Height 162.6 cm (5' 4 ) 07/24/2022 2:59 PM CHIEF JAILER Body Mass Index 36.05 07/24/2022 2:59 PM CHIEF JAILER documented in this encounter Progress Notes * [...] LIPOMALAPAROSCOPIC performed by Jerrell Byrd DO at [facility] OR [facility] [place] ESOPHAGOGASTRODUODENOSCOPY TRANSORAL DIAGNOSTIC N/A 10/11/2021 ESOPHAGOGASTRODUODENOSCOPY performed by Jerrell Byrd DO at [facility] GI LAB [place] LAPS GSTRC RSTRICTIV PX LONGITUDINAL GASTRECTOMY N/A 05/05/2022 GASTRECTOMY LONGITUDINAL LAPAROSCOPIC, performed by Jerrell Byrd DO at [facility] OR [facility] [place] NDSC WRST SURG W/RLS TRANSVRS CARPL LIGM Right 05/13/2022 CARPAL TUNNEL RELEASE ENDOSCOPIC performed by Santana Lake MD at [facility] OR [facility] Family History Problem Relation Name Age of [...] use: Never Immunization History Administered Date(s) Administered ([employer])(12 YR UP) COVID-19 VACCINE - EMERGENCY USE AUTHORIZATION, MRNA, TMG120N2(PF) 30 MCG/0.3 MLIM SUSP 07/27/2020, 08/16/2020 Influenza Seasonal Unspecified Formulation IM 06/10/2020, 06/11/2020, 03/05/2021, 03/05/2021 Current Outpatient Medications: ciprofloxacin HCl (Cipro) 500 mg tablet, Take 1 Tablet (500 mg) by mouth 2 times daily., Disp: 20 Tablet, Rfl: 0 naloxone (NARCAN) 4 mg/spray [place], Non-Aerosol, EMERGENCY USE ONLY: Administer 1 spray [...] This Encounter LIPID PANEL VITAMIN B12 LEVEL *[facility] Neurology [facility] 500 Return in about 1 year (around 07/25/2023) for annual physical or as needed. An After Visit Summary was printed and given to the patient. All questions were answered prior to departure. F JAILER documented in this encounter Plan of Treatment [...] disorders documented in this encounter Care Teams Mergers And Acquisitions Attorney Relationship Specialty Start [place] [address] [facility] [address] [place] [phone] PCP - General Internal Medicine 04/08/21 documented as of this encounter
--- OUTSIDE RECORDS SUMMARY | 2024-05-29 21:40 | XMS_ITS | Encounter Summary ---
Author Organization [facility] Address [address] [place] [address] Care Team Providers Care Mentally Impaired Teacher Name Role Phone Jai Guadarrama MD Primary Care Provider +1- [phone] Encounter Details Date Type Department Care Team [...] on filedocumented in this encounter Care Teams Mentally Impaired Teacher Relationship Specialty Start [place] [address] [facility] [address] [place] [phone] PCP - General Internal Medicine 04/08/21 documented as of this encounter
--- OUTSIDE RECORDS SUMMARY | 2024-05-29 21:40 | XMS_ITS | Encounter Summary ---
Author Organization [facility] Address [address] [place] [address] Care Team Providers Care Senior Mortgage Underwriter Name Role Phone Jai Guadarrama MD Primary Care Provider +1- [phone] Reason for Visit * Auth/Cert (Routine) Specialty Diagnoses / Procedures Referred By Rigoberto t Referred To Contact Perioperative Diagnoses RIGHT CARPAL TUNNEL SYNDROME Procedures [place] WRIST ARTHROSCOP,RELEASE XVERS LIG [place] WRIST ARTHROSCOP,RELEASE XVERS LIG [place] REVISE MEDIAN N/CARPAL TUNNEL SURG CARPAL TUNNEL RELEASE ENDOSCOPIC [facility] Main Or [address] [place] [address] Referral ID Status Reason Start Date Expiration Date Visits Re quested Visits Authorized [id number] 1 1 Encounter Details Date Type Department Care Team (Late st Contact Info) Description 05/13/2022 7:39 AM ENERGY ATTORNEY Anesthesia Event [facility] Operating Room [address] [place] [address] Pablo Aggarwal MD [address] [place] [address] Anesthesia Record Procedure Summary Procedure [...] Coronavirus/COVID-19? No / Unsure 05/08/2022 8:27 AM ENERGY ATTORNEY documented as of this encounter OR Notes [...] No notable events documented. Pablo Aggarwal MD GY ATTORNEY * Anesthesia Handoff - Constanza De La [...] 8:30 AM Constanza De La Vega CRNA GY ATTORNEY * Anesthesia Preprocedure Evaluation - Pablo Aggarwal MD - 05/13/2022 7:31 AM CST Relevant Problems No relevant active problems Anesthesia Evaluation Anesthesia Plan ASA Final: 3 General, MAC and Regional Intravenous induction Mask airway maintenance NPO status > 8 hours Anesthetic plan and risks discussed with Patient. Plan discussed with Nurse Discharge Rn. Post-op Pain Control Plan to use Block for post-op pain control. Supraclavicular Plan for postoperative opioid use Smoking Compliance Patient did not smoke on day of surgery Pre-Anesthesia Evaluation - Long Form 05/13/2022 7:32 AM Name: Renata Lei Age: 42 y.o. Sex: female CSN: [id number] No Known Allergies Medications Prior to Admission [...] Past Month ??? naloxone (NARCAN) 4 mg/spray [place], Non-Aerosol EMERGENCY USE ONLY: Administer 1 spray [...] LIPOMALAPAROSCOPIC performed by Jerrell Byrd DO at [facility] OR [facility] ??? [place] ESOPHAGOGASTRODUODENOSCOPY TRANSORAL DIAGNOSTIC N/A 10/11/2021 ESOPHAGOGASTRODUODENOSCOPY performed by Jerrell Byrd DO at [facility] GI LAB ??? [place] LAP, THELMA RESTRICT PROC, LONGITUDINAL GASTRECTOMY N/A 05/05/2022 GASTRECTOMY LONGITUDINAL LAPAROSCOPIC, performed by Jerrell Byrd DO at [facility] OR [facility] Social History Tobacco Use ??? Smoking status: [...] solicited and answered. Yes Pablo Aggarwal MD GY ATTORNEY documented in this encounter Plan of Treatment [...] Indication: Surgical prophylaxis Given 05/13/2022 7:46 AM ENERGY ATTORNEY 2,000 mg dexAMETHasone (DECADRON) 4 mg/mL injection IV, INTRA-PROCEDURE PRN, Starting on Thu05/13/22 at 0750, Until Thu05/13/22 at 0830, Routine, Anesthesia Intra-op Given 05/13/2022 7:50 AM ENERGY ATTORNEY 4 mg famotidine PF (PEPCID) 20 mg/2 mL injection IV, INTRA-PROCEDURE PRN, Starting on Thu05/13/22 at 0744, Until Thu05/13/22 at 0830, Routine, Anesthesia Intra-op Given 05/13/2022 7:44 AM ENERGY ATTORNEY 20 mg fentaNYL PF (SUBLIMAZE) 50 mcg/mL injection IV, INTRA-PROCEDURE PRN, Starting on Thu05/13/22 at 0747, Until Thu05/13/22 at 0830, Routine, Anesthesia Intra-op Given 05/13/2022 7:46 AM ENERGY ATTORNEY 25 mcg glycopyrrolate (ROBINUL) 1 mg/5 mL (0.2 mg/mL) syringe IV, INTRA-PROCEDURE PRN, Starting on Thu05/13/22 at 0747, Until Thu05/13/22 at 0830, Routine, Anesthesia Intra-op Given 05/13/2022 7:47 AM ENERGY ATTORNEY 0.2 mg ketamine 50 mg/mL injection IV, INTRA-PROCEDURE PRN, Starting on Thu05/13/22 at 0757, Until Thu05/13/22 at 0830, Routine, Anesthesia Intra-op Given 05/13/2022 8:01 AM ENERGY ATTORNEY 5 mg Given 05/13/2022 7:57 AM ENERGY ATTORNEY 5 mg ketorolac (TORADOL) injection IV, INTRA-PROCEDURE PRN, Starting on Thu05/13/22 at 0817, Until Thu05/13/22 at 0830, Routine, Anesthesia Intra-op Given 05/13/2022 8:17 AM ENERGY ATTORNEY 15 mg lactated ringers infusion IV, at 150 mL/hr, PRE-PROCEDURE CONTINUOUS, Starting on Thu05/13/22 at 0600, Until Thu05/13/22 at 1112, Routine Continue from Pre-Op 05/13/2022 7:39 AM ENERGY ATTORNEY New Bag 05/13/2022 7:10 AM ENERGY ATTORNEY lidocaine (PF) (XYLOCAINE MPF) 60 mg/3 mL (2 %) injection syringe IV, INTRA-PROCEDURE PRN, Starting on Thu05/13/22 at 0746, Until Thu05/13/22 at 0830, Routine, Anesthesia Intra-op Given 05/13/2022 7:46 AM ENERGY ATTORNEY 20 mg ondansetron (ZOFRAN) 4 mg/2 mL injection IV, INTRA-PROCEDURE PRN, Starting on Thu05/13/22 at 0744, Until Thu05/13/22 at 0830, Routine, Anesthesia Intra-op Given 05/13/2022 7:44 AM ENERGY ATTORNEY 4 mg propofoL (DIPRIVAN) injection IV, INTRA-PROCEDURE CONTINUOUS PRN, Starting on Thu05/13/22 at 0748, Until Thu05/13/22 at 0830, Anesthesia Intra-op Rate Change 05/13/2022 7:58 AM ENERGY ATTORNEY 115 mcg/kg/min 73.485 mL/hr New Bag 05/13/2022 7:46 AM ENERGY ATTORNEY 125 mcg/kg/min 79.875 mL /hr propofoL (DIPRIVAN) injection IV, INTRA-PROCEDURE PRN, Starting on Thu05/13/22 at 0746, Until Thu05/13/22 at 0830, Anesthesia Intra-op Given 05/13/2022 7:55 AM ENERGY ATTORNEY 20 mg Given 05/13/2022 7:49 AM ENERGY ATTORNEY 20 mg Given 05/13/2022 7:46 AM ENERGY ATTORNEY 20 mg documented in this encounter Care Teams Senior Mortgage Underwriter Relationship Specialty [place] [address] [facility] [address] [place] [phone] PCP - General Internal Medicine 04/08/21 documented as of this encounter
--- OUTSIDE RECORDS SUMMARY | 2024-05-29 21:40 | XMS_ITS | Encounter Summary ---
Author Organization [facility] Address [address] [place] [address] Care Team Providers Care Speech Language Specialist Name Role Phone Jai Guadarrama MD Primary Care Provider +1- [phone] Encounter Details Date Type Department Care Team [...] on filedocumented in this encounter Care Teams Speech Language Specialist Relationship Specialty Start [place] [address] [facility] [address] [place] [phone] PCP - General Internal Medicine 04/08/21 documented as of this encounter
--- OUTSIDE RECORDS SUMMARY | 2024-05-29 21:41 | XMS_ITS | Encounter Summary ---
Author Organization [facility] Address [address] [place] [address] Care Team Providers Care Lining Ironer Name Role Phone Jai Guadarrama MD Primary Care Provider +1- [phone] Encounter Details Date Type Department Care Team (Late st Contact Info) Description 03/21/2022 Prep for Surgery [facility] Orthopaedics [address] [place] [address] Lorene Christianson, RN Morbid obesity with BMI [...] Primary documented in this encounter Care Teams Lining Ironer Relationship Specialty [place] [address] [place] [address] PCP - General Internal Medicine 04/08/21 documented as of this encounter
--- OUTSIDE RECORDS SUMMARY | 2024-05-29 21:41 | XMS_ITS | Encounter Summary ---
Author Organization [facility] Address [address] [place] [address] Care Team Providers Care Information Support Project Manager Name Role Phone Jai Guadarrama MD Primary Care Provider +1- [phone] Encounter Details Date Type Department Care Team (Late st Contact Info) Description 12/19/2021 Abstract [facility] Internal Medicine Angelica Tony [address] [place] [address] [place] [address] [address] [place] [address] Social History [...] filedocumented in this encounter Care Teams Information Support Project Manager Relationship Specialty [place] [address] [address] [place] [phone] PCP - General Internal Medicine 04/08/21 documented as of this encounter
--- OUTSIDE RECORDS SUMMARY | 2024-05-29 21:41 | XMS_ITS | Encounter Summary ---
Author Organization [facility] Address [address] [place] [address] Care Team Providers Care Director Internal Control Name Role Phone Jai Guadarrama MD Primary Care Provider +1- [phone] Encounter Details Date Type Department Care Team (Latest Contact Info) Description 04/22/2022 10:21 AM GROUP EXERCISE MANAGER - 04/22/2022 11:59 PM GROUP EXERCISE MANAGER Hospital Encounter [facility] Imaging Services [facility] [address] [place] [address] Jerrell Byrd, DO [address] [address] Discharge Disposition: Home or Self [...] Coronavirus/COVID-19? No / Unsure 04/22/2022 8:50 AM GROUP EXERCISE MANAGER documented as of this encounter Medications at Time of Discharge Medication Sig Dispensed Refills Start Date End Date naloxone (NARCAN) 4 mg/spray [place], Non-Aerosol EMERGENCY USE ONLY: Administer 1 spray [...] Name Priority Date/Time Associated Diagnosis Comments XR CHEST PA AND LATERAL 2 VW Routine 04/22/2022 10:49 AM GROUP EXERCISE MANAGER Morbid obesity with BMI of 40.0-44.9, adult documented in this encounter Results * XR CHEST PA AND LATERAL 2 VW (04/22/2022 10:49 AM GROUP EXERCISE MANAGER) Anatomical Region Laterality Modality Chest Computed Radiogr aphy 04/22/2022 10:5 0 AM GROUP EXERCISE MANAGER Impressions 04/22/2022 12:58 PM GROUP EXERCISE MANAGER IMPRESSION: No evidence of active disease in the chest. DICTATION LOCATION: [address] Narrative 04/22/2022 12:58 PM GROUP EXERCISE MANAGER EXAMINATION: PA AND LATERAL CHEST RADIOGRAPH DATE: [...] disease in the chest. DICTATION LOCATION: Location [address] [place] [address] Jerrell Byrd DO DIAGNOSTIC IMAGING O RDERABLES documented in this encounter Visit Diagnoses Diagnosis Morbid obesity with BMI of 40.0-44.9, adult documented in this encounter Care Teams Director Internal Control Relationship Specialty Start [place] [address] [facility] [address] [place] [phone] PCP - General Internal Medicine 04/08/21 documented as of this encounter
--- OUTSIDE RECORDS SUMMARY | 2024-05-29 21:41 | XMS_ITS | Encounter Summary ---
Author Organization [facility] Address [address] [place] [address] Care Team Providers Care Bridge Repair Crew Person Name Role Phone Jai Guadarrama MD Primary Care Provider +- [phone] Reason for Referral * Outpatient Services (Routine) - Closed Specialty Diagnoses / Procedures Referred By Contac t Referred To Contact EMG Diagnoses Carpal tunnel syndrome of right wrist Procedures EMG WITH NERVE CONDUCTION Santana aLke MD [address] [facility] [address] [place] [address] [facility] [address] [place] [address] Referral ID Status Reason Start Date Expiration Date Visits Re quested Visits Authorized [id number] Closed 04/01/2022 05/02/2023 1 1 F PRESS OPERATOR Encounter Details Date Type Department Care Team (Late st Contact Info) Description 04/01/2022 Orders Only [facility] PLASTIC SURGERY [address] [facility] [address] [place] [address] Santana Lake MD [address] [facility] [address] [place] [address] Carpal tunnel syndrome of right [...] - 04/01/2022 3:45 PM CST EMG ordered F PRESS OPERATOR documented in this encounter Plan of Treatment Not on file documented as of this encounter Results * EMG WITH NERVE CONDUCTION (04/08/2022 12:30 PM PROOF PRESS OPERATOR) [facility] - 04/08/2022 12:30 PM PROOF PRESS OPERATOR Jai Beach MD ? 04/08/2022 ??1:14 PM EMG/NCS Procedure Report [facility] Date of Service: ??04/08/2022 Patient Name: ??Renata [...] denervation-reinnervation on the right. Jai Beach MD [facility] Neurology Santana Lake MD NEUROLOGY ORDER [facility] documented in this encounter Visit Diagnoses Diagnosis Carpal tunnel syndrome of right wrist- Primary Carpal tunnel syndrome Carpal tunnel syndrome of right wrist Carpal tunnel syndrome documented in this encounter Care Teams Bridge Repair Crew Person Relationship Specialty Start [place] [address] [facility] [address] [place] [phone] PCP - General Internal Medicine 04/08/21 documented as of this encounter
--- OUTSIDE RECORDS SUMMARY | 2024-05-29 21:41 | XMS_ITS | Encounter Summary ---
Author Organization [facility] Address [address] [place] [address] Care Team Providers Care Pillowcase Cutter Name Role Phone Jai Guadarrama MD Primary Care Provider +- [phone] Reason for Referral * Outpatient Services (Routine) - Closed Specialty Diagnoses / Procedures Referred By Rigoberto french Referred To Contact EMG Diagnoses Carpal tunnel syndrome of right wrist Procedures EMG WITH NERVE CONDUCTION Santana Lake MD [address] [address] [address] [address] [place] [address] Referral ID Status Reason Start Date Expiration Date Visits Re quested Visits Authorized [id number] Closed 04/01/2022 05/02/2023 1 1 R LABORATORY Reason for Visit * Outpatient Services (Routine) - Closed Specialty Diagnoses / Procedures Referred By Rigoberto french Referred To Contact EMG Diagnoses Carpal tunnel syndrome of right wrist Procedures EMG WITH NERVE CONDUCTION Santana Lake MD [address] [address] [address] [facility] [address] [place] [address] Referral ID Status Reason Start Date Expiration Date Visits Re quested Visits Authorized [id number] Closed 04/01/2022 05/02/2023 1 1 Encounter Details Date Type Department Care Team (Latest Contact Info) Description 04/08/2022 12:21 PM [facility] - 04/08/2022 11:59 PM [facility] Hospital Encounter [facility] Support Services EM[address] [place] [address] Santana Lake MD [address] [place] [address] Jai Beach MD [address] [place] [address] Discharge Disposition: Home or Self [...] Coronavirus/COVID-19? No / Unsure 04/08/2022 12:14 PM [facility] documented as of this encounter Medications at Time of Discharge Medication Sig Dispensed Refills Start Date End Date naloxone (NARCAN) 4 mg/spray [place], Non-Aerosol EMERGENCY USE ONLY: Administer 1 spray [...] EMG WITH NERVE CONDUCTION EMG/NCS Procedure Report [facility] Date of Service: 04/08/2022 Patient Name: Renata [...] denervation-reinnervation on the right. Jai Beach MD [facility] Neurology R LAB[facility]ATORY documented in this encounter Plan of Treatment Not on file documented as of this encounter Procedures Procedure Name Priority Date/Time Associated Diagnosis Comments EMG WITH NERVE CONDUCTION Routine 04/08/2022 12:30 PM [facility] Carpal tunnel syndrome of right wrist documented in this encounter Results * EMG WITH NERVE CONDUCTION (04/08/2022 12:30 PM [facility]) [facility] - 04/08/2022 12:30 PM [facility] Jai Beach MD ? 04/08/2022 ??1:14 PM EMG/NCS Procedure Report [facility] Date of Service: ??04/08/2022 Patient [...] denervation-reinnervation on the right. Jai Beach MD [facility] Neurology Santana Lake MD NEUROLOGY ORDER [facility] documented in this encounter Visit Diagnoses Diagnosis Carpal tunnel syndrome of right wrist Carpal tunnel syndrome documented in this encounter Care Teams Pillowcase Cutter Relationship Specialty Start [place] [address] [facility] [address] [place] [phone] PCP - General Internal Medicine 04/08/21 documented as of this encounter
--- OUTSIDE RECORDS SUMMARY | 2024-05-29 21:41 | XMS_ITS | Encounter Summary ---
Author Organization [facility] Address [address] [place] [address] Care Team Providers Care Roving Department End Finder Name Role Phone Jai Guadarrama MD Primary Care Provider +- [phone] Encounter Details Date Type Department Care Team (Late st Contact Info) Description 12/17/2021 Abstract [facility] Internal Medicine Carmen Tony [address] [place] [address] Elizabeth Wilson Social History Tobacco [...] on filedocumented in this encounter Care Teams Roving Department End Finder Relationship Specialty Start [place] [address] [place] [address] PCP - General Internal Medicine 04/08/21 documented as of this encounter
--- OUTSIDE RECORDS SUMMARY | 2024-05-29 21:41 | XMS_ITS | Encounter Summary ---
Author Organization [facility] Address [address] [place] [address] Care Team Providers Care Ship'S Engineer Name Role Phone Jai Guadarrama MD Primary Care Provider +1- [phone] Encounter Details Date Type Department Care Team (Late st Contact Info) Description 04/11/2022 Abstract [facility] Orthopaedics [address] [place] [address] Lorene Christianson, JUANJO Social History [...] Coronavirus/COVID-19? No / Unsure 04/08/2022 12:14 PM PROJECT ARCHIVIST documented as of this encounter Plan of Treatment Not on file documented as of this encounter Visit Diagnoses Not on filedocumented in this encounter Care Teams Ship'S Engineer Relationship Specialty Start [place] [address] [place] [phone] PCP - General Internal Medicine 04/08/21 documented as of this encounter
--- OUTSIDE RECORDS SUMMARY | 2024-05-29 21:41 | XMS_ITS | Encounter Summary ---
Author Organization [facility] Address [address] [place] [address] Care Team Providers Care Supervisory Training Specialist Name Role Phone Jai Guadarrama MD Primary Care Provider [phone] Reason for Visit * Auth/Cert Specialty Diagnoses / Procedures Referred By Contac t Referred To Contact Diagnoses Morbid obesity Morbid obesity [E66.01] Procedures AZ LAP, THELMA RESTRICT PROC, LONGITUDINAL GASTRECTOMY AZ LAP, THELMA RESTRICT PROC, LONGITUDINAL GASTRECTOMY Jerrell Byrd DO [address] [facility] [address] [place] [address] Referral ID Status Reason Start Date Expiration Date Visits Re quested Visits Authorized [id number] 03/21/2022 1 1 Encounter Details Date Type Department Care Team (Late st Contact Info) Description 05/05/2022 9:49 AM PHARMACOLOGY TEACHER - 05/05/2022 11:38 AM PHARMACOLOGY TEACHER Surgery [facility] Operating Room [address] [place] [address] Jerrell Byrd DO [address] [facility] [address] [place] [address] GASTRECTOMY LONGITUDINAL LAPAROSCOPIC, Surgery Details [...] Coronavirus/COVID-19? No / Unsure 04/22/2022 8:50 AM PHARMACOLOGY TEACHER documented as of this encounter Last Filed Vital Signs Vital Sign Reading Time Taken Comments Blood Pressure 124/82 05/05/2022 8:29 AM PHARMACOLOGY TEACHER Pulse 73 05/05/2022 8:29 AM PHARMACOLOGY TEACHER Temperature 36.1 ??C (96.9 ??F) 05/05/2022 8:29 AM CS T Respiratory Rate 18 05/05/2022 8:29 AM PHARMACOLOGY TEACHER Oxygen Saturation 98% 05/05/2022 8:29 AM PHARMACOLOGY TEACHER Inhaled Oxygen Concentration - - Weight 110.5 kg (243 lb 9.6 oz) 05/05/2022 8:29 AM PHARMACOLOGY TEACHER Height 162.6 cm (5' 4 ) 05/05/2022 8:29 AM PHARMACOLOGY TEACHER Body Mass Index 41.81 05/05/2022 8:29 AM PHARMACOLOGY TEACHER documented in this encounter Discharge Summaries * Jerrell Byrd DO - 05/06/2022 10:06 AM CST Images from the original note were not included. Patient: Renata Lei : 1980 [facility] [address] [place] [address] B, [address] [place] [address] DISCHARGE SUMMARY Admission date: 05/05/2022 Discharge date: [...] 200 mL Refills: 0 naloxone 4 mg/spray Milton, Non-Aerosol Commonly known as: NARCAN EMERGENCY USE [...] Your Medications These medications were sent to [place] [address] Hours: Retail 8 AM - 12 AM Daily / ED Service 10 AM - 12 AM Daily docusate sodium 100 mg capsule HYDROcodone-acetaminophen 7.5-325 mg/15 mL Solution omeprazole 40 mg Capsule, Delayed Release(E.C.) ondansetron 4 mg Tablet, Rapid Dissolve Information about where to get these medications is not yet available Ask your nurse or doctor about these medications naloxone 4 mg/spray Milton, Non-Aerosol ACTIVITY: No strenuous activity, such as [...] discharge instructions and/or during discharge discussion with construction project coordinator. FOLLOW-UP: Dr. Byrd or Abelardo Barrios PA-C in approximately 2 weeks. Call [phone] to schedule day and time of the appointment, if not already scheduled. Please do not hesitate to call our office with any questions. See patient D/C instructions. Elias Byrd DO 05/06/2022, 10:06 AM Clinic Bariatric Exchange (After hours & weekends): [phone] MACOLOGY TEACHER documented in this encounter Discharge Instructions * Discharge Instructions* Jerrell Byrd DO - 05/05/2022 11:28 AM PHARMACOLOGY TEACHER DISCHARGE INSTRUCTIONS PROCEDURE: Laparoscopic Sleeve Gastrectomy Activity [...] you a headache: Call our office at [phone]. If you don't get a response or it's outside normal business hours, call the Bariatric Exchange Line: [phone]* Incision/Wound care: Clean incisions by allowing soapy [...] Your Medications [address] [facility] [place] [address] Hours: Retail 8 AM - 12 AM [...] pureed fruits, vegetables, and/or meats (use a crab fisherman for this). Food NOT Allowed: Any liquids [...] POSTOPERATIVE QUESTIONS OR CONCERNS? --> Call our Supermarket Manager, Tawnya ( ) After regular business hours? Please call the Bariatric Exchange Line -- Phone #: [phone] MACOLOGY TEACHER documented in this encounter Medications at Time of Discharge Medication Sig Dispensed Refills Start Date End Date naloxone (NARCAN) 4 mg/spray Milton, Non-Aerosol EMERGENCY USE ONLY: Administer 1 spray [...] private vehicle. IV removed. Medications received from [facility] pharmacy. Incentive spirometer, pill api product manager and personal belongings sent home with patient. MACOLOGY TEACHER documented in this encounter H&P Notes * Jerrell Byrd DO - 05/05/2022 11:11 AM CST Images from the original note were not included. Patient: Renata Lei : 1980 CSN: [id number] [facility] [address] [place] [address] B, [address] [place] [address] HISTORY & PHYSICAL 05/05/2022 HISTORY OF PRESENT [...] REPLACEMENT Left 1998 HX LAP CHOLECYSTECTOMY 2006 AZ ESOPHAGOGASTRODUODENOSCOPY TRANSORAL DIAGNOSTIC N/A 10/11/2021 ESOPHAGOGASTRODUODENOSCOPY performed by Jerrell Byrd DO at [facility] Medications Prior to [...] answered. Elias Byrd DO 05/05/2022, 11:12 AM MACOLOGY TEACHER documented in this encounter OR Notes * Operative Report - Jrerell Byrd DO - 05/05/2022 1:25 PM CST [address] [address] Operative Report DATE OF SERVICE: 05/05/2022 PATIENT'S NAME: Renata Lei : 1980 CSN: [id number] PRE OP DIAGNOSES: Morbid obesity with comorbidities [...] of esophageal lipoma SURGEON: Jerrell Byrd DO [place] APPRENTICE: Abelardo Barrios PA-C Surgical Staff: Bookkeeping Assistant: Joseph Davis RN; Enedelia Espinosa RN; Shruthi Broderick RN; Luli Gamez RN Scrub: Joseph Davis RN; Megha Bowman ST First Assistant: Fortino Roberts, PHARMACOLOGY TEACHER; Garland Elias RN Surgeon's Umbrella Repairer: Abelardo Barrios PA ANESTHESIA: GETA ESTIMATED BLOOD [...] been discussed with this patient and/or legal lifeline representatives. The patient and/or legal lifeline representatives acknowledge(s) understanding of the above and consent(s) [...] dressing application. The use of a physician child life assistant was required due to the complexity [...] a 5 mm epigastric and left flank child life assistant port were placed under direct laparoscopic [...] be hemostatic. Next the bougie tube- 36 Italian, was advanced to the antrum under direct [...] room awake and in stable condition. Elias yBrd DO 05/05/2022 1:26 PM [facility] MACOLOGY TEACHER * Darlyn-OP - Enedelia Espinosa RN - 05/05/2022 12:13 PM CST Sterile warm nacl used as irrigation. Patient's temperature and forced air warming equipment monitored/regulated by anesthesia. Anesthesia equipment, medications and supplies maintained, cleaned, inspected, checked and restocked by designated anesthesia staff and [facility] anesthesia technicians. Compression sleeves applied and powered on prior to anesthesia induction. Prep solution allowed to dry for a minimal of 3 minutes prior to incision. MACOLOGY TEACHER documented in this encounter Miscellaneous Notes * [...] for discharge planning. Monae Montoya RN, BSN Distillery Laborer [id number] Day 1 - Current (Hermosa Pathway: Adult and Obstetrics) Patient, family, or healthcare designee is participating in individual care plan process Outcome: Met Problem: Discharge Planning Goal: Identify discharge needs upon admission and through discharge Description: Outcome: Progressing MACOLOGY TEACHER * Treatment Plan - Yulia Marin RCP - 05/06/2022 8:17 AM CST RT Assess & Treat Note Plan: Pt has no pulmonary hx. Patient does not require therapy at this time. Please reorder Assess and Treat if condition changes. For further information please call the assigned RT. MACOLOGY TEACHER * Treatment Plan - Yulia Marin RCP - 05/06/2022 8:16 AM CST Images from the original note were not included. Respiratory Therapy Assess and Treat Protocol- [facility] Approved by: [facility] - Medical Executive Committee Approval Date: 01/30/2022 ORDERS ARE ENTERED ???PER PROTOCOL?? Enter the protocol in the patient???s electronic health record using [employer]: .rtassessandtreatprotocol Respiratory Therapy orders: Requires a written order for Assess and Treat Protocol (RT41) or IP Consult to Respiratory Therapy (CON21) by the physician or the physician assembler metal building. Oxygen desaturation studies (walk studies) must be [...] (CON21) by the physician or the physician assembler metal building. 2. Only licensed Respiratory Therapists will be [...] home regimen medications as listed in their COMMERCIAL SEWING INSTRUCTOR medication list as appropriate. Patients in [facility] [...] not indicated for patients transitioning to a residential facility, rehabilitation facility, or who have not required oxygen since admission unless otherwise specified by the physician. ASSESS AND TREAT PROTOCOL-ADULT BRONCHODILATION PROCEDURE Indications: Bronchospasm/wheezing (Reactive Airway Disease, Asthma, Emphysema, Chronic Bronchitis, Bronchiolitis) Current Home Bronchodilator usage including short-acting, long-acting, inhaled corticosteroid, anticholinergic, and combination respiratory medications. Other indications stated in the [place] [employer] Res[employer]???s Clinical Practice Guidelines, [...] the patient is being managed by their Injection Molding Supervisor. Determine Mode of Delivery using chart below. [...] MDI 4)Considerations Review patient???s Prior to Admission (COMMERCIAL SEWING INSTRUCTOR) medication list. The Respiratory Therapist will consider ordering any of the following meds based on the patient???s home regimen: Short and long-acting bronchodilators, inhaled corticosteroids, anticholinergics, and combination respiratory medications. Use of the preferred [facility] formulary equivalent should be ordered per Assess and Treat Protocol for use throughout the patients hospital stay. Patients diagnosed with a chronic lung disease, such as COPD or Asthma, will be evaluated for the benefit of a controller medication therapy (long-acting bronchodilators, inhaled corticosteroids, anticholinergics, and combination respiratory medications) if not already on the COMMERCIAL SEWING INSTRUCTOR medication list. The Respiratory Therapist will contact the attending physician if a controller therapy may benefit the patient. Xopenex (Levalbuterol) Orders will be followed as below: See Pharmacy Policy, Section: APPROVED THERAPEUTIC INTERCHANGES FOR [facility] Title: Beta Agonists Patients taking home regimen [...] pathology. Untreated pneumothorax, flail chest, pulmonary barotraumas. MACOLOGY TEACHER * Care Plan - Farhat Godinez RN [...] follow-up. Outcome: Met Day 1 - Current (Hermosa Pathway: Adult and Obstetrics) Patient, family, or [...] techniques or patient moves independently. Outcome: Met MACOLOGY TEACHER * Care Plan - Scarlet Moser RN [...] shift. Patient is stable and resting comfortably. MACOLOGY TEACHER * Care Plan - Cristino Ricks RN - 05/05/2022 1:24 PM CST Potential for pain related to surgical/procedural intervention Interventions: Assess level of pain/comfort utilizing verbal/nonverbal pain scales; assess culturalor jain indicators attached to pain; administer pain medications [...] no bleeding or hematoma from surgical site MACOLOGY TEACHER * Care Plan - Amber Guzman RN [...] experience Outcome Met: patient understands darlyn-op process MACOLOGY TEACHER documented in this encounter Plan of Treatment Scheduled Orders Name Type Priority Associated Diagnoses Orde r Schedule RT ASSESS AND TREAT Respiratory Care Routine ONE TIME for 1 Occurrences starting 05/05/2022 until 05/05/2022 documented as of this encounter Procedures Procedure Name Priority Date/Time Associated Diagnosis Comments TELEMETRY REPORT 05/09/2022 11:0 6 AM PHARMACOLOGY TEACHER TELEMETRY REPORT 05/09/2022 11:0 5 AM PHARMACOLOGY TEACHER CBC WITHOUT DIFFERENTIAL Routine 05/06/2022 5:05 AM PHARMACOLOGY TEACHER BASIC METABOLIC PANEL Routine 05/06/2022 5:05 AM PHARMACOLOGY TEACHER PATHOLOGY Pathology 05/05/2022 12:28 PM PHARMACOLOGY TEACHER Morbid obesity HERNIA PARAESOPHAGEAL REPAIR LAPAROSCOPIC 05/05/2022 9:49 AM PHARMACOLOGY TEACHER Morbid obesity Case Notes VITA BCBS PP AZ LAPS GSTRC RSTRICTIV PX LONGITUDINAL GASTRECTOMY 05/05/2022 9:49 AM PHARMACOLOGY TEACHER Morbid obesity Case Notes VITA BCBS PP VERIFICATION BLOOD GROUP Stat 05/05/2022 9:29 AM PHARMACOLOGY TEACHER Encounter for blood typing POC , URINE Routine 05/05/2022 8:55 AM PHARMACOLOGY TEACHER PREPARE RED BLOOD CELLS Routine 05/05/2022 12:15 AM PHARMACOLOGY TEACHER PREPARE RED BLOOD CELLS Routine 05/05/2022 12:15 AM PHARMACOLOGY TEACHER documented in this encounter Results * TELEMETRY REPORT (05/09/2022 11:06 AM PHARMACOLOGY TEACHER) Provider Scanning ECG ORDERABLES * TELEMETRY REPORT (05/09/2022 11:05 AM PHARMACOLOGY TEACHER) Provider Scanning ECG ORDERABLES * (ABNORMAL) BASIC METABOLIC PANEL (05/06/2022 5:05 AM PHARMACOLOGY TEACHER) SODIUM 138 136 - 145 mmol/L 05/06/2022 7:01 AM PHARMACOLOGY TEACHER [employer] [facility] POTASSIUM 4.0 3.5 - 5.0 mmol/L 05/06/2022 7:01 AM PHARMACOLOGY TEACHER [employer] [facility] - . [facility] CHLORIDE 104 98 - 107 mmol/L 05/06/2022 7:01 AM PHARMACOLOGY TEACHER [employer] [facility] - . [facility] CO2 21(L) 22 - 29 mmol/L 05/06/2022 7:01 AM PHARMACOLOGY TEACHER [employer] [facility] CALCIUM 8.7 8.6 - 10.2 mg/dL 05/06/2022 7:01 AM PHARMACOLOGY TEACHER [employer] [facility] BUN 8 6 - 20 mg/dL 05/06/2022 7:01 AM PHARMACOLOGY TEACHER [employer] [facility] - [facility] CREATININE 0.73 0.51 - 0.95 mg/dL 05/06/2022 7:01 AM [facility] GLUCOSE 91 74 - 99 mg/dL 05/06/2022 7:01 AM [facility] GFR >60 >=60 mL/min/1.7 3 sq meter 05/06/2022 7:01 AM [facility] Comment:eGFR calculated with 2020 CKD-EPI equation. Vegetarian diet, extremely high or low muscle mass, and may affect results. Cystatin C with Glomerular Filtration Rate is a suitable alternative for these patients. ANION GAP 13 8 - 16 mmol/L 05/06/2022 7:01 AM [facility] [employer] [facility] Blood Venipuncture / Unknown 05/06/2022 5:05 AM PHARMACOLOGY TEACHER 05/06/2022 6:06 AM PHARMACOLOGY TEACHER Jerrell Byrd DO CHEMISTRY ORDERABLES [facility]# [id number] [address] [place], [place] [id number] * (ABNORMAL) CBC WITHOUT DIFFERENTIAL (05/06/2022 5:05 AM PHARMACOLOGY TEACHER) WBC 11.2(H) 4.0 - 9.8 K/uL 05/06/2022 6:26 AM [facility] RBC 4.25 3.90 - 4.90 M/uL 05/06/2022 6:26 AM [facility] HEMOGLOBIN 11.9 11.8 - 14.8 g/dL 05/06/2022 6:26 AM [facility] [facility] HEMATOCRIT 37.2 35.5 - 44.0 % 05/06/2022 6:26 AM [facility] MCV 87.5 82.0 - 99.0 fL 05/06/2022 6:26 AM [facility] [facility] MCH 28.0 27.2 - 32.6 pg 05/06/2022 6:26 AM [facility] MCHC 32.0 31.5 - 35.5 g/dL 05/06/2022 6:26 AM [facility] PLATELETS 246 140 - 350 K/uL 05/06/2022 6:26 AM [facility] MPV 12.2 9.3 - 12.4 fL 05/06/2022 6:26 AM [facility] RDW 12.4 11.5 - 14.5 % 05/06/2022 6:26 AM [facility] RDW-STDEV 39.8 37.1 - 48.7 fL 05/06/2022 6:26 AM [facility] Blood Venipuncture / Unknown 05/06/2022 5:05 AM PHARMACOLOGY TEACHER 05/06/2022 6:07 AM [facility] Jerrell Byrd DO HEMATOLOGY ORDERABLE S [facility]# [id number] 5 [place] [address] * PATHOLOGY (05/05/2022 12:28 PM PHARMACOLOGY TEACHER) CASE REPORT Surgical Pathology Report ? Case: [id number] ? Authorizing Provider: ??Jerrell Byrd DO ? Collected: ? 05/05/2022 12:28 PM ? Ordering Location: ? [facility] ?Received: ?05/05/2022 02:06 PM ? Operating Room ? Pathologist: ? Jemma Rivero MD ? Specimens: ?? A) - Soft Tissue, esophageal lipoma ? B) - Stomach ? 2 5:06 PM [facility] [employer] SERVICES [facility] FINAL DIAGNOSIS Soft tissue, esophageal lipoma, excision: -Benign adipose tissue, compatible with lipoma. Stomach, laparoscopic longitudinal gastrectomy: -Chronic inflammation, mild. -No evidence of dysplasia or malignancy. 2 5:06 PM [facility] S DESCRIPTION The specimens are received in two containers each labeled Renata Garciason . Received in the first container additionally labeled esophageal lipoma is an unoriented ovoid segment of soft yellow fatty tissue measuring 2.5 x 2.3 x 1.3 cm. The specimen is inked black entirely and sectioned to show soft yellow fatty cut surface. Nurse Infection Control sections are submitted labeled A1. Received in the second container additionally labeled stomach is an 18 x 4.5 x 2 cm wedge-shaped segment of stomach. The serosa is smooth and dull. A staple line is present along 1 edge. The mucosa is langston-pink with focal langston putative polyps measuring 0.2 cm in greatest dimension. Nurse Infection Control sections are submitted labeled B1 through B2 including putative polyps in B2 with serosa inked black. ARC 2 5:06 PM [facility] MICROSCOPIC DESCRIPTION The slides are labeled [id number] and Renata Lei. Sections are of the esophageal lipoma reveal benign adipose tissue, compatible with lipoma. Sections of stomach reveal mild chronic inflammation and no evidence of dysplasia or malignancy. 2 5:06 PM [facility] OPERATIVE PROCEDURE 1: GASTRECTOMY LONGITUDINAL LAPAROSCOPIC 2: HERNIA PARAESOPHAGEAL REPAIR LAPAROSCOPIC 2 5:06 PM [facility] CLINICAL INFORMATION Morbid obesity [E66.01] E66.01-Morbid obesity 2 5:06 PM [facility] COMMENT Special stain, immunohistochemical, and/or in situ hybridization results are interpreted with controls that demonstrate appropriate staining reactions. Note on use of immunohistochemistry reagents and in situ hybridization probes: These tests were developed and their performance characteristics determined by [facility], Department of Laboratory Medicine. It has [...] part or completely in the following laboratories: [facility], CLIA #[id number] [address] [place] [address] [facility], [place] #[id number] [address] [place] [address] [facility], [place] #[id number] [address] [place] [address] This report was created with the [employer] voice-activated dictation system. Inherent to this system is the possibility of syntax, grammar, punctuation and other errors that could impact the interpretation of the report. If there are interpretative questions about aspects of this report, please contact the performing pathologist. 5:06 PM PHARMACOLOGY TEACHER [facility]ORATORY SERVICES [facility] Tissue (Soft Tissue) Collection / Unknown 05/05/2022 12:28 PM PHARMACOLOGY TEACHER 05/05/2022 2:06 PM PHARMACOLOGY TEACHER Tissue specimen (specimen) ENTIRE STOMACH / Unknown 05/05/2022 12:46 PM PHARMACOLOGY TEACHER 05/05/2022 2:06 PM PHARMACOLOGY TEACHER Jerrell Byrd DO PATHOLOGY/CYTOLOGY O RDERABLES [facility] [employer] [facility] CLIA# [id number] [address] [place] [address] * VERIFICATION BLOOD GROUP (05/05/2022 9:29 AM PHARMACOLOGY TEACHER) ABO GROUP O 05/05/2022 10:25 AM PHARMACOLOGY TEACHER [facility] -- [facility] RH (D) TYPE Positive 05/05/2022 10:25 AM PHARMACOLOGY TEACHER [facility] Blood Venipuncture / Unknown 05/05/2022 9:29 AM PHARMACOLOGY TEACHER 05/05/2022 9:29 AM PHARMACOLOGY TEACHER Pamela Silva MD BLOOD BANK ORD ERABLES Performing Organization Address [facility]/ZIP Co de Phone Number [facility] [employer] [facility] CLIA# [id number] [address] [place] [address] * POC , URINE (05/05/2022 8:55 AM PHARMACOLOGY TEACHER) HCG QUAL URINE Negative Negative 05/05/2022 8:55 AM PHARMACOLOGY TEACHER [facility] Urine 05/05/2022 8:55 AM PHARMACOLOGY TEACHER 05/05/2022 3:21 PM PHARMACOLOGY TEACHER Jerrell Byrd DO POINT OF CARE TESTIN G [facility] [employer] [facility] CLIA# [id number] [address] [place] [address] * PREPARE RED BLOOD CELLS (05/05/2022 12:15 AM PHARMACOLOGY TEACHER) COMPONENT TYPE [id number] [facility] COMPONENT IDENTIFICATION [id number] [facility] ABO O [facility] RH POS [facility] CROSSMATCH Compatible [facility] COMPONENT STATUS Returned [facility] COMPONENT EXPIRATION DATE/TIME [facility] COMPONENT CODING SYSTEM [address] [facility] 05/05/2022 12:1 5 AM PHARMACOLOGY TEACHER Jerrell Byrd DO LAB TRANSFUSION GOSIA QUISPE [facility] CLIA# [id number] [address] [place] [address] * PREPARE RED BLOOD CELLS (05/05/2022 12:15 AM PHARMACOLOGY TEACHER) COMPONENT TYPE [id number] [facility] COMPONENT IDENTIFICATION [id number] [facility] ABO O [facility] RH POS [facility] CROSSMATCH Compatible [facility] COMPONENT STATUS Returned [facility] COMPONENT EXPIRATION DATE/TIME [id number] [facility] COMPONENT CODING SYSTEM [address] [facility] 05/05/2022 12:1 5 AM PHARMACOLOGY TEACHER Jerrell Byrd DO LAB TRANSFUSION GOSIA QUISPE [facility] CLIA# [id number] [address] [facility] [place] [address] documented in this encounter Visit Diagnoses Diagnosis [...] 1318, Routine, Intra-op Given 05/05/2022 12:48 PM PHARMACOLOGY TEACHER 30 mL Operative Site escitalopram oxalate (LEXAPRO) tablet 10 mg 10 mg, Oral, DAILY, First dose on Thu05/06/22 at 0900, Until Discontinued, Routine, Previous Med: escitalopram oxalate (LEXAPRO) 10 mg tablet - Orig Sig - Take 10 mg by mouth daily. Given 05/06/2022 8:53 AM PHARMACOLOGY TEACHER 10 mg heparin injection 5,000 Units 5,000 Units, subCUT, EVERY 8 HOURS, First dose on Thu05/05/22 at 2000, Until Discontinued, Routine, Post-op - Floor Given 05/06/2022 5:30 AM PHARMACOLOGY TEACHER 5,000 Units Abdomen, Right Lower Quadrant Given 05/05/2022 8:49 PM PHARMACOLOGY TEACHER 5,000 Units A bdomen, Right Lower Quadrant HYDROcodone-acetaminophen (HYCET) 7.5-325 mg/15 mL oral solution 15 mL 15 mL (7.5 mg), Oral, EVERY 4 HOURS PRN, Starting on Thu05/05/22 at 1620, Until Thu05/06/22 at 1724, Pain (See admin instructions), Routine, Post-op - Floor Given 05/06/2022 10:39 AM PHARMACOLOGY TEACHER 15 mL ketorolac (TORADOL) injection 15 mg 15 mg, IV, EVERY 6 HOURS PRN, Starting on Thu05/05/22 at 1620, Until Thu05/06/22 at 1619, Other (See Comment), Cramping or aching pain, Routine, Post-op - Floor Given 05/06/2022 10:39 AM PHARMACOLOGY TEACHER 15 mg Given 05/05/2022 11:13 PM PHARMACOLOGY TEACHER 15 mg Given 05/05/2022 4:48 PM PHARMACOLOGY TEACHER 15 mg lactated ringers infusion IV, at 125 mL/hr, CONTINUOUS, Starting on Thu05/05/22 at 1630, Until Thu05/06/22 at 1724, Routine, Post-op - Floor New Bag 05/06/2022 12:22 AM PHARMACOLOGY TEACHER 125 mL/hr Rate Verify 05/05/2022 4:30 PM PHARMACOLOGY TEACHER 125 mL/hr morphine 4 mg/mL injection 4 mg 4 mg, IV, EVERY 4 HOURS PRN, Starting on Thu05/05/22 at 1620, Until Thu05/06/22 at 1724, Pain (See admin instructions), Pain, Break-Through, Routine, Post-op - Floor Given 05/06/2022 12:17 AM PHARMACOLOGY TEACHER 4 mg naloxone (NARCAN) 0.4 mg/mL injection 0.1 mg 0.1 mg, IV, SEE ADMIN INSTRUCTIONS, Starting on Thu05/05/22 at 1012, Until Thu05/06/22 at 1724, Routine, PACU pantoprazole (PROTONIX) injection 40 mg 40 mg, IV, DAILY, First dose on Thu05/06/22 at 0900, Until Discontinued, Routine, Post-op - Floor, Indication: Gastroesophageal reflux disease (GERD) Given 05/06/2022 9:00 AM PHARMACOLOGY TEACHER 40 mg sodium chloride 0.9 % irrigation solution INTRA-PROCEDURE PRN, Starting on Thu05/05/22 at 1248, Until Thu05/05/22 at 1318, Routine, Intra-op Given 05/05/2022 12:48 PM PHARMACOLOGY TEACHER 3,000 mL Operative Site documented in this encounter Active and Recently Administered Medications Times are shown in PHARMACOLOGY TEACHER. Scheduled Medication Order 05/04/2022 05/05/2022 05/06/2022 bupivacaine-EPINEPHrine [...] Floor 1800 (New Bag - Provider: Scarlet Moesr RN - Comment: barcode wont scan, checked [facility], correct med)1830 (Stopped - Provider: [...] DO) documented in this encounter Care Teams Supervisory Training Specialist Relationship Specialty [place] [address] [facility] [address] [place] [phone] PCP - General Internal Medicine 04/08/21 documented as of this encounter
--- OUTSIDE RECORDS SUMMARY | 2024-05-29 21:41 | XMS_ITS | Encounter Summary ---
Author Organization [facility] Address [address] [place]: Epic Prelude ADT [place] [address] Care Team Providers Care Aeronautical Inspector Name Role Phone Jai Guadarrama MD Primary Care Provider +1- [phone] Encounter Details Date Type Department Care Team [...] on filedocumented in this encounter Care Teams Aeronautical Inspector Relationship Specialty [place] [address] [place] [phone] PCP - General Internal Medicine 04/08/21 documented as of this encounter
--- OUTSIDE RECORDS SUMMARY | 2024-05-29 21:41 | XMS_ITS | Encounter Summary ---
Author Organization [facility] Address [address] [place] [address] Care Team Providers Care Stem Mounter Name Role Phone Jai Guadarrama MD Primary Care Provider +1- [phone] Reason for Visit * Auth/Cert (Routine) Specialty Diagnoses / Procedures Referred By Rigoberto t Referred To Contact Perioperative Diagnoses RIGHT CARPAL TUNNEL SYNDROME Procedures ID WRIST ARTHROSCOP,RELEASE XVERS LIG ID WRIST ARTHROSCOP,RELEASE XVERS LIG ID REVISE MEDIAN N/CARPAL TUNNEL SURG CARPAL TUNNEL RELEASE ENDOSCOPIC Stlo Main Or [address] [place] [address] Referral ID Status Reason Start Date Expiration Date Visits Re quested Visits Authorized [id number] 1 1 Encounter Details Date Type Department Care Team (Late st Contact Info) Description 05/13/2022 7:20 AM TAILINGS DAM PUMPER - 05/13/2022 8:45 AM TAILINGS DAM PUMPER Surgery [facility] Operating Room [address] [place] [address] Santana Lake MD [address] [address] CARPAL TUNNEL RELEASE ENDOSCOPIC Surgery [...] Coronavirus/COVID-19? No / Unsure 05/08/2022 8:27 AM TAILINGS DAM PUMPER documented as of this encounter Last Filed Vital Signs Vital Sign Reading Time Taken Comments Blood Pressure 136/83 05/13/2022 8:44 AM TAILINGS DAM PUMPER Pulse 54 05/13/2022 8:44 AM TAILINGS DAM PUMPER Temperature 36.1 ??C (97 ??F) 05/13/2022 8:44 AM TAILINGS DAM PUMPER Respiratory Rate 16 05/13/2022 8:44 AM TAILINGS DAM PUMPER Oxygen Saturation 96% 05/13/2022 8:44 AM TAILINGS DAM PUMPER Inhaled Oxygen Concentration - - Weight 106.5 kg (234 lb 12.8 oz) 05/13/2022 6:42 AM TAILINGS DAM PUMPER Height 162.6 cm (5' 4 ) 05/13/2022 6:42 AM TAILINGS DAM PUMPER Body Mass Index 40.3 05/13/2022 6:42 AM TAILINGS DAM PUMPER documented in this encounter Discharge Instructions * Discharge Instructions* Margarita Pastor RN - 05/13/2022 8:41 AM TAILINGS DAM PUMPER [facility] discharge instructions. F/u in [...] questions. If you are not active on [employer], please sign up by visiting [employer] Then send me a message saying [email or web address], and that you have now signed up for my Sample6. Santana Lake MD [facility] Plastic [facility] Hand Surgery 1st choice M-F 8am-4pm: office, grinder operator external tool (nights and weekends) SAFETY For the next [...] or come to the Emergency Room at [facility] ([phone]) or the nearest Emergency Room. In an emergency, Call 911. INGS DAM PUMPER documented in this encounter Medications at Time of Discharge Medication Sig Dispensed Refills Start Date End Date naloxone (NARCAN) 4 mg/spray [place], Non-Aerosol EMERGENCY USE ONLY: Administer 1 spray [...] health benefits of quitting, and current and early childhood education coordinator risks if continued smoking She is not [...] has not been seen by a surgical aide for this complaint in the past. OBJECTIVE: [...] Santana Lake M.D. Hand and Plastic Surgeon [facility] Plastic Surgery INGS DAM PUMPER documented in this encounter OR Notes * Darlyn-OP - Claudia Joshua RN - 05/13/2022 9:06 AM CST Took IV out of L hand, catheter intact, direct pressure applied. INGS DAM PUMPER * Operative Report - Santana Lake MD - 05/13/2022 8:42 AM TAILINGS DAM PUMPER DATE OF SERVICE: 05/13/2022 NAME: Renata Lei : 1980 [facility]: [id number] SURGEON Santana Lake MD. PREOPERATIVE DIAGNOSIS Right [...] fascia was identified and grasped using a supervisor opening and picking. The antebrachial fascia was then spread along [...] less than 30 minutes. Santana Lake MD INGS DAM PUMPER * Darlyn-OP - Julisa Carrillo RN - 05/08/2022 8:37 AM CST Surgical orders unavailable at the time of patient's [facility] phone interview. INGS DAM PUMPER * Darlyn-OP - Julisa Carrillo RN - 05/08/2022 8:31 AM CST Patient states she has not had any chances in her medical history or medications since her DOS . States she has the pre procedural instructions and has no further questions. Medications reviewed. ADVANCED PLANNING FOR MEDICATION USE * Unless otherwise ordered by a member of the [facility] Anesthesiology Staff. 1. STOP a. Seven (7) DAYS PRIOR TO SURGERY OR WHEN NOTIFIED IF < SEVEN DAYS: The use of all vitamins, herbal supplements, and other alternative substances. b. Seven (7) DAYS PRIOR TO SURGERY: The use of any UNPRESCRIBED Aspirin, Excedrin and NSAIDs which include Motrin, Ibuprofen, Aleve, and Naprosyn. CURRENT MEDICATION LIST Pre-Surgery Instructions Medication Instructions naloxone (NARCAN) 4 mg/spray [place], Non-Aerosol May use if needed the morning [...] morning of surgery with sip of water INGS DAM PUMPER * Darlyn-OP - Sandy Logan RN - [...] call me back after speaking with patient. INGS DAM PUMPER documented in this encounter Miscellaneous Notes * Care Plan - Margarita aPstor RN - 05/13/2022 8:32 AM CST Knowledge [...] strategies Outcome Met: patient calm and informed INGS DAM PUMPER * Care Plan - Julisa Palma RN [...] perioperative experience Outcome Met: All concerns addressed INGS DAM PUMPER documented in this encounter Plan of Treatment Not on file documented as of this encounter Procedures Procedure Name Priority Date/Time Associated Diagnosis Comments ID NDSC WRST SURG W/RLS TRANSVRS CARPL LIGM 05/13/2022 7:20 AM TAILINGS DAM PUMPER RIGHT CARPAL TUNNEL SYNDROME Case Notes [facility] PP POC , URINE Routine 05/13/2022 6:25 AM TAILINGS DAM PUMPER documented in this encounter Results * POC , URINE (05/13/2022 6:25 AM TAILINGS DAM PUMPER) HCG QUAL URINE Negative Negative 05/13/2022 6:25 AM TAILINGS DAM PUMPER [facility] Urine 05/13/2022 6:25 AM TAILINGS DAM PUMPER 05/13/2022 1:04 PM TAILINGS DAM PUMPER Santana Lake MD POINT OF CARE T ESTING [facility] echoecho [facility] CLIA# [id number] [address] [place] [address] documented in this encounter Visit Diagnoses Not [...] 0823, Routine, Intra-op Given 05/13/2022 8:10 AM TAILINGS DAM PUMPER 1 Packet Operative Site lactated ringers infusion IV, at 150 mL/hr, PRE-PROCEDURE CONTINUOUS, Starting on Thu05/13/22 at 0600, Until Thu05/13/22 at 1112, Routine Continue from Pre-Op 05/13/2022 7:39 AM TAILINGS DAM PUMPER New Bag 05/13/2022 7:10 AM TAILINGS DAM PUMPER documented in this encounter Active and Recently Administered Medications Times are shown in TAILINGS DAM PUMPER. Scheduled Medication Order 05/11/2022 05/12/2022 05/13/2022 ceFAZolin [...] MD) documented in this encounter Care Teams Stem Mounter Relationship Specialty [place] [address] [facility] [address] [place] [phone] PCP - General Internal Medicine 04/08/21 documented as of this encounter
--- OUTSIDE RECORDS SUMMARY | 2024-05-29 21:41 | XMS_ITS | Encounter Summary ---
Author Organization [facility] Address [address] [place] [address] Care Team Providers Care Gateman Name Role Phone Jai Guadarrama MD Primary Care Provider +1- [phone] Reason for Visit * Reason Comments Follow Up Encounter Details Date Type Department Care Team (Late st Contact Info) Description 03/20/2022 12:15 PM CDT Office Visit [facility] Surgical Spec [address] [address] [place] [address] Jerrell Byrd, DO [address] [place] [address] Morbid obesity with body mass [...] not included. Patient: Renata Lei : 1980 [facility] [address] [place] [address] [address] [place] [address] PRE-OPERATIVE HISTORY & PHYSICAL 03/20/2022 CC: Morbid [...] loss of 80-90 lb for this procedure. [place]k body weight: 54.7 kg (120 lb 9.5 [...] REPLACEMENT Left 1998 HX LAP CHOLECYSTECTOMY 2005 [place] ESOPHAGOGASTRODUODENOSCOPY TRANSORAL DIAGNOSTIC N/A 10/11/2021 ESOPHAGOGASTRODUODENOSCOPY performed by Jerrell Byrd DO at [facility] GI [facility] Social History Socioeconomic History Marital [...] hiatal hernia. DICTATION LOCATION: Location 1 - [facility] ENDOSCOPY: [facility] Endoscopy Patient Name: Renata Lei Procedure [...] of Addenda: [address]; [place] [address] CLINICAL IMPRESSION: Morbid Obesity (Body mass index [...] antiemetic, and pain prescriptions yamilex sent to [facility] pharmacy for patient delivery prior to leaving [...] surgery. Elias Byrd DO 03/20/2022, 9:02 PM JOINER documented in this encounter Plan of Treatment Not on file documented as of this encounter Visit Diagnoses Diagnosis Morbid obesity with body mass index (BMI) of 40.0 to 49.9- Primary Hypercholesterolemia Pure hypercholesterolemia Low vitamin D level Gastric reflux Esophageal reflux documented in this encounter Care Teams Gateman Relationship Specialty Start [place] [address] [facility] [address] [phone] PCP - General Internal Medicine 04/08/21 documented as of this encounter
--- OUTSIDE RECORDS SUMMARY | 2024-05-29 21:41 | XMS_ITS | Encounter Summary ---
Author Organization [facility] Address [address] [place]: Epic Prelude ADT [place] [address] Care Team Providers Care Band Tumbler Name Role Phone Jai Guadarrama MD Primary Care Provider +1- [phone] Encounter Details Date Type Department Care Team [...] documented as of this encounter Care Teams Band Tumbler Relationship Specialty [place] [address] [place] [phone] PCP - General Internal Medicine 04/08/21 documented as of this encounter
--- OUTSIDE RECORDS SUMMARY | 2024-05-29 21:41 | XMS_ITS | Encounter Summary ---
Author Organization [facility] Address [address] [place] [address] Care Team Providers Care Tie Mill Operator Name Role Phone Jai Guadarrama MD Primary Care Provider +1- [phone] Encounter Details Date Type Department Care Team (Late st Contact Info) Description 12/18/2021 Abstract [facility] [address] [place] [address] Lorene Christianson, JUANJO Social History [...] on filedocumented in this encounter Care Teams Tie Mill Operator Relationship Specialty Start [place] [address] [place] [phone] PCP - General Internal Medicine 04/08/21 documented as of this encounter
--- OUTSIDE RECORDS SUMMARY | 2024-05-29 21:41 | XMS_ITS | Encounter Summary ---
Author Organization [facility] Address [address] [place]: Epic Prelude ADT [place] [address] Care Team Providers Care Propellant Assembler Name Role Phone Jai Guadarrama MD Primary Care Provider +1- [phone] Encounter Details Date Type Department Care Team [...] Coronavirus/COVID-19? No / Unsure 04/02/2022 10:37 AM PICKLE SOLUTION MAKER documented as of this encounter Plan of Treatment Not on file documented as of this encounter Visit Diagnoses Not on filedocumented in this encounter Care Teams Propellant Assembler Relationship Specialty [place] [address] [place] [phone] PCP - General Internal Medicine 04/08/21 documented as of this encounter
--- OUTSIDE RECORDS SUMMARY | 2024-05-29 21:41 | XMS_ITS | Encounter Summary ---
Author Organization [facility] Address [address] [place]: Epic Prelude ADT [place] [address] Care Team Providers Care Publicist Name Role Phone Jai Guadarrama MD Primary Care Provider +1- [phone] Encounter Details Date Type Department Care Team [...] Coronavirus/COVID-19? No / Unsure 04/08/2022 12:14 PM PARK AIDE documented as of this encounter Plan of Treatment Not on file documented as of this encounter Visit Diagnoses Not on filedocumented in this encounter Care Teams Publicist Relationship Specialty [place] [address] [place] [phone] PCP - General Internal Medicine 04/08/21 documented as of this encounter
--- OUTSIDE RECORDS SUMMARY | 2024-05-29 21:41 | XMS_ITS | Encounter Summary ---
Author Organization [facility] Address [address] [place] [address] Care Team Providers Care Pneumatic Jacketer Name Role Phone Jai Guadarrama MD Primary Care Provider [phone] Reason for Visit * Auth/Cert Specialty Diagnoses / Procedures Referred By Contac t Referred To Contact Diagnoses Morbid obesity Morbid obesity [E66.01] Procedures SD LAP, THELMA RESTRICT PROC, LONGITUDINAL GASTRECTOMY SD LAP, THELMA RESTRICT PROC, LONGITUDINAL GASTRECTOMY Jerrell Byrd DO [address] [facility] [address] [place] [address] Referral ID Status Reason Start Date Expiration Date Visits Re quested Visits Authorized [id number] 03/21/2022 1 1 Encounter Details Date Type Department Care Team (Latest Contact Info) Description 05/05/2022 8:06 AM CLOTH BALE HEADER - 05/06/2022 3:19 PM [facility] Hospital Encounter [facility] [address] [place] [address] Jerrell Byrd DO [address] [facility] [address] [place] [address] Lipoma of intra-abdominal organ Discharge [...] Coronavirus/COVID-19? No / Unsure 04/22/2022 8:50 AM CLOTH BALE HEADER documented as of this encounter Last Filed Vital Signs Vital Sign Reading Time Taken Comments Blood Pressure 130/72 05/06/2022 8:10 AM CLOTH BALE HEADER Pulse 71 05/06/2022 8:10 AM CLOTH BALE HEADER Temperature 36.8 ??C (98.2 ??F) 05/06/2022 8:10 AM CS T Respiratory Rate 16 05/06/2022 8:10 AM CLOTH BALE HEADER Oxygen Saturation 96% 05/06/2022 8:10 AM CLOTH BALE HEADER Inhaled Oxygen Concentration - - Weight 110.5 kg (243 lb 9.6 oz) 05/05/2022 8:29 AM CLOTH BALE HEADER Height 162.6 cm (5' 4 ) 05/05/2022 8:29 AM CLOTH BALE HEADER Body Mass Index 41.81 05/05/2022 8:29 AM CLOTH BALE HEADER documented in this encounter Discharge Summaries * Jerrell Byrd DO - 05/06/2022 10:06 AM CST Images from the original note were not included. Patient: Renata Lei : 1980 [facility] [address] [place] [address] [address], [address] [place] [address] DISCHARGE SUMMARY Admission date: 05/05/2022 Discharge date: [...] by mouth 2 times daily. Signed by: Abeladro Barrios PA-C Quantity: 60 Capsule Refills: 0 HYDROcodone-acetaminophen 7.5-325 mg/15 mL Solution Commonly known as: HYCET Take 10 mL by mouth every 6 hours as needed for Pain. Max Daily Amount: 40 mL Signed by: Abelardo Barrios PA-C Quantity: 200 mL Refills: 0 naloxone 4 mg/spray [place], Non-Aerosol Commonly known as: NARCAN EMERGENCY USE [...] Your Medications These medications were sent to [place] [address] Hours: Retail 8 AM - 12 AM Daily / ED Service 10 AM - 12 AM Daily docusate sodium 100 mg capsule HYDROcodone-acetaminophen 7.5-325 mg/15 mL Solution omeprazole 40 mg Capsule, Delayed Release(E.C.) ondansetron 4 mg Tablet, Rapid Dissolve Information about where to get these medications is not yet available Ask your nurse or doctor about these medications naloxone 4 mg/spray [place], Non-Aerosol ACTIVITY: No strenuous activity, such as [...] discharge instructions and/or during discharge discussion with performance improvement coordinator. FOLLOW-UP: Dr. Byrd or Abelardo Barrios PA-C in approximately 2 weeks. Call [phone] to schedule day and time of the appointment, if not already scheduled. Please do not hesitate to call our office with any questions. See patient D/C instructions. Elias Byrd DO 05/06/2022, 10:06 AM Clinic Bariatric Exchange (After hours & weekends): [phone] H BALE HEADER documented in this encounter Discharge Instructions * Discharge Instructions* Jerrell Byrd DO - 05/05/2022 11:28 AM CLOTH BALE HEADER DISCHARGE INSTRUCTIONS PROCEDURE: Laparoscopic Sleeve Gastrectomy Activity [...] you a headache: Call our office at [phone]. If you don't get a response or it's outside normal business hours, call the Bariatric Exchange Line: [phone]* Incision/Wound care: Clean incisions by allowing soapy [...] Your Medications These medications were sent to [place] [address] Hours: Retail 8 AM - 12 AM [...] pureed fruits, vegetables, and/or meats (use a tapper supervisor for this). Food NOT Allowed: Any liquids [...] POSTOPERATIVE QUESTIONS OR CONCERNS? --> Call our Pipe Welder, Tawnya ( ) After regular business hours? Please call the Bariatric Exchange Line -- Phone #: [phone] H BALE HEADER documented in this encounter Medications at Time of Discharge Medication Sig Dispensed Refills Start Date End Date naloxone (NARCAN) 4 mg/spray [place], Non-Aerosol EMERGENCY USE ONLY: Administer 1 spray [...] private vehicle. IV removed. Medications received from [facility] pharmacy. Incentive spirometer, pill medical assistant instructor and personal belongings sent home with patient. H BALE HEADER documented in this encounter H&P Notes * Jerrell Byrd DO - 05/05/2022 11:11 AM CST Images from the original note were not included. Patient: Renata Lei : 1980 CSN: [id number] [facility] [address] [facility] [address], [address] [place] [address] HISTORY & PHYSICAL 05/05/2022 HISTORY OF PRESENT [...] REPLACEMENT Left 1998 HX LAP CHOLECYSTECTOMY 2005 SD ESOPHAGOGASTRODUODENOSCOPY TRANSORAL DIAGNOSTIC N/A 10/11/2021 ESOPHAGOGASTRODUODENOSCOPY performed by Jerrell Byrd DO at [facility] Medications Prior to Admission Medication [...] answered. Elias Byrd DO 05/05/2022, 11:12 AM H BALE HEADER documented in this encounter OR Notes * Operative Report - Jerrell Byrd DO - 05/05/2022 1:25 PM CST [place] [address] [place], [place] [address] Operative Report DATE OF SERVICE: 05/05/2022 PATIENT'S NAME: Renata Lei : 1980 [facility]: [id number] PRE OP DIAGNOSES: Morbid obesity with comorbidities [...] of esophageal lipoma SURGEON: Jerrell Byrd DO PILE OPERATOR: Abelardo Barrios PA-C Surgical Staff: Vacation Sales Advisor: Joseph Davis RN; Enedelia Espinosa RN; Shruthi Broderick RN; Luli Gamez RN Scrub: Joseph Davis RN; Megha Bowman ST First Assistant: Fortino Roberts CST; Garland Elias RN Surgeon's Food And Beverage Director: Abelardo Barrios PA ANESTHESIA: GETA ESTIMATED BLOOD [...] been discussed with this patient and/or legal event representative. The patient and/or legal event representative acknowledge(s) understanding of the above and [...] dressing application. The use of a physician anesthetic assistant was required due to the complexity [...] a 5 mm epigastric and left flank anesthetic assistant port were placed under direct laparoscopic [...] be hemostatic. Next the bougie tube- 36 Lebanese, was advanced to the antrum under direct [...] condition. Elias Byrd DO 05/05/2022 1:26 PM [facility] H BALE HEADER * Darlyn-OP - Enedelia Espinosa RN - 05/05/2022 12:13 PM CST Sterile warm nacl used as irrigation. Patient's temperature and forced air warming equipment monitored/regulated by anesthesia. Anesthesia equipment, medications and supplies maintained, cleaned, inspected, checked and restocked by designated anesthesia staff and [facility] anesthesia technicians. Compression sleeves applied and powered on prior to anesthesia induction. Prep solution allowed to dry for a minimal of 3 minutes prior to incision. H BALE HEADER documented in this encounter Miscellaneous Notes * [...] for discharge planning. Monae Montoya RN, BSN Painter Helper Spray [id number] Day 1 - Current ([facility]: Adult and Obstetrics) Patient, family, or healthcare designee is participating in individual care plan process Outcome: Met Problem: Discharge Planning Goal: Identify discharge needs upon admission and through discharge Description: Outcome: Progressing H BALE HEADER * Treatment Plan - Yulia Marin RCP - 05/06/2022 8:17 AM CST RT Assess & Treat Note Plan: Pt has no pulmonary hx. Patient does not require therapy at this time. Please reorder Assess and Treat if condition changes. For further information please call the assigned RT. H BALE HEADER * Treatment Plan - Yulia Marin RCP - 05/06/2022 8:16 AM CST Images from the original note were not included. Respiratory Therapy Assess and Treat Protocol- [facility] Approved by: [facility] - Medical Executive Committee Approval Date: 01/30/2022 ORDERS ARE ENTERED ???PER PROTOCOL?? Enter the protocol in the patient???s electronic health record using Datappraise: .rtassessandtreatprotocol Respiratory Therapy orders: Requires a written order for Assess and Treat Protocol (RT41) or IP Consult to Respiratory Therapy (CON21) by the physician or the physician cable ferry operator. Oxygen desaturation studies (walk studies) must [...] (CON21) by the physician or the physician cable ferry operator. 2. Only licensed Respiratory Therapists will [...] home regimen medications as listed in their CHEMICAL MIXER medication list as appropriate. Patients in [facility] [...] not indicated for patients transitioning to a group home facility, rehabilitation facility, or who have not required oxygen since admission unless otherwise specified by the physician. ASSESS AND TREAT PROTOCOL-ADULT BRONCHODILATION PROCEDURE Indications: Bronchospasm/wheezing (Reactive Airway Disease, Asthma, Emphysema, Chronic Bronchitis, Bronchiolitis) Current Home Bronchodilator usage including short-acting, long-acting, inhaled corticosteroid, anticholinergic, and combination respiratory medications. Other indications stated in the [place] [employer]???s Clinical Practice Guidelines, [...] the patient is being managed by their Environmental Systems Coordinator. Determine Mode of Delivery using chart below. [...] MDI 4)Considerations Review patient???s Prior to Admission (CHEMICAL MIXER) medication list. The Respiratory Therapist will consider ordering any of the following meds based on the patient???s home regimen: Short and long-acting bronchodilators, inhaled corticosteroids, anticholinergics, and combination respiratory medications. Use of the preferred [facility] formulary equivalent should be ordered per Assess and Treat Protocol for use throughout the patients hospital stay. Patients diagnosed with a chronic lung disease, such as COPD or Asthma, will be evaluated for the benefit of a controller medication therapy (long-acting bronchodilators, inhaled corticosteroids, anticholinergics, and combination respiratory medications) if not already on the CHEMICAL MIXER medication list. The Respiratory Therapist will contact the attending physician if a controller therapy may benefit the patient. Xopenex (Levalbuterol) Orders will be followed as below: See Pharmacy Policy, Section: APPROVED THERAPEUTIC INTERCHANGES FOR [facility] Title: Beta Agonists Patients taking home regimen [...] pathology. Untreated pneumothorax, flail chest, pulmonary barotraumas. H BALE HEADER * Care Plan - Farhat Godinez RN [...] follow-up. Outcome: Met Day 1 - Current ([facility]: Adult and Obstetrics) Patient, family, or [...] techniques or patient moves independently. Outcome: Met H BALE HEADER * Care Plan - Scarlet Moser RN [...] shift. Patient is stable and resting comfortably. H BALE HEADER * Care Plan - Cristino Ricks RN - 05/05/2022 1:24 PM CST Potential for pain related to surgical/procedural intervention Interventions: Assess level of pain/comfort utilizing verbal/nonverbal pain scales; assess culturalor christian indicators attached to pain; administer pain medications [...] no bleeding or hematoma from surgical site H BALE HEADER * Care Plan - Amber Guzman RN [...] experience Outcome Met: patient understands darlyn-op process H BALE HEADER documented in this encounter Plan of Treatment Scheduled Orders Name Type Priority Associated Diagnoses Orde r Schedule RT ASSESS AND TREAT Respiratory Care Routine ONE TIME for 1 Occurrences starting 05/05/2022 until 05/05/2022 documented as of this encounter Procedures Procedure Name Priority Date/Time Associated Diagnosis Comments TELEMETRY REPORT 05/09/2022 11:0 6 AM CLOTH BALE HEADER TELEMETRY REPORT 05/09/2022 11:0 5 AM CLOTH BALE HEADER CBC WITHOUT DIFFERENTIAL Routine 05/06/2022 5:05 AM CLOTH BALE HEADER BASIC METABOLIC PANEL Routine 05/06/2022 5:05 AM CLOTH BALE HEADER PATHOLOGY Pathology 05/05/2022 12:28 PM CLOTH BALE HEADER Morbid obesity HERNIA PARAESOPHAGEAL REPAIR LAPAROSCOPIC 05/05/2022 9:49 AM CLOTH BALE HEADER Morbid obesity Case Notes VITA MCKEON PP SD LAPS GSTRC RSTRICTIV PX LONGITUDINAL GASTRECTOMY 05/05/2022 9:49 AM CLOTH BALE HEADER Morbid obesity Case Notes VIAT MCKEON PP VERIFICATION BLOOD GROUP Stat 05/05/2022 9:29 AM CLOTH BALE HEADER Encounter for blood typing POC , URINE Routine 05/05/2022 8:55 AM CLOTH BALE HEADER PREPARE RED BLOOD CELLS Routine 05/05/2022 12:15 AM CLOTH BALE HEADER PREPARE RED BLOOD CELLS Routine 05/05/2022 12:15 AM CLOTH BALE HEADER documented in this encounter Results * TELEMETRY REPORT (05/09/2022 11:06 AM CLOTH BALE HEADER) Provider Scanning ECG ORDERABLES * TELEMETRY REPORT (05/09/2022 11:05 AM CLOTH BALE HEADER) Provider Scanning ECG ORDERABLES * (ABNORMAL) BASIC METABOLIC PANEL (05/06/2022 5:05 AM CLOTH BALE HEADER) SODIUM 138 136 - 145 mmol/L 05/06/2022 7:01 AM [facility] [employer] [facility] - [facility] POTASSIUM 4.0 3.5 - 5.0 mmol/L 05/06/2022 7:01 AM CLOTH BALE HEADER [employer] [facility] - [facility] CHLORIDE 104 98 - 107 mmol/L 05/06/2022 7:01 AM [facility] [employer] [facility] CO2 21(L) 22 - 29 mmol/L 05/06/2022 7:01 AM [facility] [employer] [facility] - [facility] CALCIUM 8.7 8.6 - 10.2 mg/dL 05/06/2022 7:01 AM [facility] [employer] [facility] BUN 8 6 - 20 mg/dL 05/06/2022 7:01 AM [facility] [employer] [facility] CREATININE 0.73 0.51 - 0.95 mg/dL 05/06/2022 7:01 AM CLOTH BALE HEADER [employer] [facility] GLUCOSE 91 74 - 99 mg/dL 05/06/2022 7:01 AM CLOTH BALE HEADER [employer] [facility] GFR >60 >=60 mL/min/1.7 3 sq meter 05/06/2022 7:01 AM CLOTH BALE HEADER [employer] [facility] Comment:eGFR calculated with 2020 CKD-EPI equation. Vegetarian diet, extremely high or low muscle mass, and may affect results. Cystatin C with Glomerular Filtration Rate is a suitable alternative for these patients. ANION GAP 13 8 - 16 mmol/L 05/06/2022 7:01 AM [facility] [employer] [facility] - [facility] Blood Venipuncture / Unknown 05/06/2022 5:05 AM CLOTH BALE HEADER 05/06/2022 6:06 AM CLOTH BALE HEADER Jerrell Byrd DO CHEMISTRY ORDERABLES [employer] SERVICES - [facility] CLIA# [id number] [address] [facility] [place] [address] * (ABNORMAL) CBC WITHOUT DIFFERENTIAL (05/06/2022 5:05 AM CLOTH BALE HEADER) WBC 11.2(H) 4.0 - 9.8 K/uL 05/06/2022 6:26 AM [facility] [employer] SERVICES - [facility] RBC 4.25 3.90 - 4.90 M/uL 05/06/2022 6:26 AM CLOTH BALE HEADER [employer] [facility] - [facility] HEMOGLOBIN 11.9 11.8 - 14.8 g/dL 05/06/2022 6:26 AM [facility] [employer] [facility] - [facility] HEMATOCRIT 37.2 35.5 - 44.0 % 05/06/2022 6:26 AM [facility] [employer] SERVICES - [facility] MCV 87.5 82.0 - 99.0 fL 05/06/2022 6:26 AM CLOTH BALE HEADER [employer] SERVICES - [facility] MCH 28.0 27.2 - 32.6 pg 05/06/2022 6:26 AM [employer] - [facility] MCHC 32.0 31.5 - 35.5 g/dL 05/06/2022 6:26 AM [employer] [facility] - [facility] PLATELETS 246 140 - 350 K/uL 05/06/2022 6:26 AM CLOTH BALE HEADER [employer] - [facility] MPV 12.2 9.3 - 12.4 fL 05/06/2022 6:26 AM [employer] [facility] - [facility] RDW 12.4 11.5 - 14.5 % 05/06/2022 6:26 AM CLOTH BALE HEADER [facility] RDW-STDEV 39.8 37.1 - 48.7 fL 05/06/2022 6:26 AM CLOTH BALE HEADER [facility] Blood Venipuncture / Unknown 05/06/2022 5:05 AM CLOTH BALE HEADER 05/06/2022 6:07 AM CLOTH BALE HEADER Jerrell Byrd DO HEMATOLOGY ORDERABLE S Performing Organization Address [facility]/State/ZIP Co de Phone Number [facility] CLIA# [id number] [address] [place] [address] * PATHOLOGY (05/05/2022 12:28 PM CLOTH BALE HEADER) CASE REPORT Surgical Pathology Report ? Case: [id number] ? Authorizing Provider: ??Jerrell Byrd, DO ? Collected: ? 05/05/2022 12:28 PM ? Ordering Location: ? [facility] ?Received: ?05/05/2022 02:06 PM ? Operating Room ? Pathologist: ? Jemma Rivero MD ? Specimens: ?? A) - Soft Tissue, esophageal lipoma ? B) - Stomach ? 2 5:06 PM [facility] [employer] [facility] FINAL DIAGNOSIS Soft tissue, esophageal lipoma, excision: -Benign adipose tissue, compatible with lipoma. Stomach, laparoscopic longitudinal gastrectomy: -Chronic inflammation, mild. -No evidence of dysplasia or malignancy. 2 5:06 PM [facility] [employer] [facility] S DESCRIPTION The specimens are received in two containers each labeled Renata Lei . Received in the first container additionally labeled esophageal lipoma is an unoriented ovoid segment of soft yellow fatty tissue measuring 2.5 x 2.3 x 1.3 cm. The specimen is inked black entirely and sectioned to show soft yellow fatty cut surface. Director Supply Chain sections are submitted labeled A1. Received in the second container additionally labeled stomach is an 18 x 4.5 x 2 cm wedge-shaped segment of stomach. The serosa is smooth and dull. A staple line is present along 1 edge. The mucosa is langston-pink with focal langston putative polyps measuring 0.2 cm in greatest dimension. Director Supply Chain sections are submitted labeled B1 through B2 including putative polyps in B2 with serosa inked black. [facility] 2 5:06 PM [facility] [employer] [facility] MICROSCOPIC DESCRIPTION The slides are labeled [id number] and Renata Lei. Sections are of the esophageal lipoma reveal benign adipose tissue, compatible with lipoma. Sections of stomach reveal mild chronic inflammation and no evidence of dysplasia or malignancy. 2 5:06 PM [facility] OPERATIVE PROCEDURE 1: GASTRECTOMY LONGITUDINAL LAPAROSCOPIC 2: HERNIA PARAESOPHAGEAL REPAIR LAPAROSCOPIC 2 5:06 PM [facility] CLINICAL INFORMATION Morbid obesity [E66.01] E66.01-Morbid obesity 2 5:06 PM [facility] COMMENT Special stain, immunohistochemical, and/or in situ hybridization results are interpreted with controls that demonstrate appropriate staining reactions. Note on use of immunohistochemistry reagents and in situ hybridization probes: These tests were developed and their performance characteristics determined by [facility] Department of Laboratory Medicine. It has not [...] part or completely in the following laboratories: [facility], [place] #[id number] [address] [place] [address] [facility], [place] #[id number] [address] [place] [address] [facility]/[place], [place] #[id number] [address] [place] [address] This report was created with the [employer] voice-activated dictation system. Inherent to this system is the possibility of syntax, grammar, punctuation and other errors that could impact the interpretation of the report. If there are interpretative questions about aspects of this report, please contact the performing pathologist. 2 5:06 PM [facility] Tissue (Soft Tissue) Collection / Unknown 05/05/2022 12:28 PM CLOTH BALE HEADER 05/05/2022 2:06 PM CLOTH BALE HEADER Tissue specimen (specimen) ENTIRE STOMACH / Unknown 05/05/2022 12:46 PM CLOTH BALE HEADER 05/05/2022 2:06 PM CLOTH BALE HEADER Jerrell Byrd DO PATHOLOGY/CYTOLOGY O SUSSYERAAMADEO Performing Organization Address [facility]/ZIP Co de Phone Number [facility] - [facility] CLIA# [id number] [address] [place] [address] * VERIFICATION BLOOD GROUP (05/05/2022 9:29 AM CLOTH BALE HEADER) ABO GROUP O 05/05/2022 10:25 AM CLOTH BALE HEADER [employer] [facility] -- [facility] RH (D) TYPE Positive 05/05/2022 10:25 AM CLOTH BALE HEADER [employer] [facility] -- [facility] Blood Venipuncture / Unknown 05/05/2022 9:29 AM CLOTH BALE HEADER 05/05/2022 9:29 AM CLOTH BALE HEADER Pamela Silva MD BLOOD BANK ORD ERABLES Performing Organization Address [facility]/ZIP Co de Phone Number [facility] -- [facility] CLIA# [id number] [address] [place] [address] * POC , URINE (05/05/2022 8:55 AM CLOTH BALE HEADER) HCG QUAL URINE Negative Negative 05/05/2022 8:55 AM CLOTH BALE HEADER [facility] - [facility] Urine 05/05/2022 8:55 AM CLOTH BALE HEADER 05/05/2022 3:21 PM CLOTH BALE HEADER Jerrell Byrd DO POINT OF CARE TESTIN G [facility] - [facility] CLIA# [id number] [address] [place] [address] * PREPARE RED BLOOD CELLS (05/05/2022 12:15 AM CLOTH BALE HEADER) COMPONENT TYPE [id number] [facility] -- [facility] COMPONENT IDENTIFICATION [id number] [facility] -- [facility] UNIT ABO O [employer] [facility] -- [facility] POS [facility] Compatible [facility] COMPONENT STATUS Returned [facility] -- [facility] COMPONENT EXPIRATION DATE/TIME [id number] [facility] COMPONENT CODING SYSTEM [address] [facility] 05/05/2022 12:1 5 AM CLOTH BALE HEADER Jerrell Byrd DO LAB TRANSFUSION GOSIA QUISPE [facility] CLIA# [id number] [address] [place] [address] * PREPARE RED BLOOD CELLS (05/05/2022 12:15 AM CLOTH BALE HEADER) COMPONENT TYPE [id number] [facility] COMPONENT IDENTIFICATION [id number] [facility] O [facility] POS [facility] Compatible [facility] COMPONENT STATUS Returned [facility] COMPONENT EXPIRATION DATE/TIME [phone] [facility] COMPONENT CODING [facility] 5[address] [facility] 05/05/2022 12:1 5 AM CLOTH BALE HEADER Jerrell Byrd DO LAB TRANSFUSION GOSIA QUISPE Performing Organization Address City/[facility]/ZIP Co de Phone Number [facility] CLIA# [id number] [address] [place] [address] documented in this encounter Visit Diagnoses Diagnosis [...] by mouth daily. Given 05/06/2022 8:53 AM CLOTH BALE HEADER 10 mg heparin injection 5,000 Units 5,000 Units, subCUT, PRE-PROCEDURE ONCE, 1 dose, Starting on Thu05/05/22 at 0846, Until Thu05/05/22 at 0925, Routine, Pre-op Given 05/05/2022 9:25 AM CLOTH BALE HEADER 5,000 Units Arm, Left heparin injection 5,000 Units 5,000 Units, subCUT, EVERY 8 HOURS, First dose on Thu05/05/22 at 2000, Until Discontinued, Routine, Post-op - Floor Given 05/06/2022 5:30 AM CLOTH BALE HEADER 5,000 Units Abdomen, Right Lower Quadrant Given 05/05/2022 8:49 PM CLOTH BALE HEADER 5,000 Units A bdomen, Right Lower Quadrant HYDROcodone-acetaminophen (HYCET) 7.5-325 mg/15 mL oral solution 15 mL 15 mL (7.5 mg), Oral, EVERY 4 HOURS PRN, Starting on Thu05/05/22 at 1620, Until Thu05/06/22 at 1724, Pain (See admin instructions), Routine, Post-op - Floor Given 05/06/2022 10:39 AM CLOTH BALE HEADER 15 mL HYDROmorphone (DILAUDID) 2 mg/mL injection 0.2 mg 0.2 mg, IV, POST-PROCEDURE Q 5 MINUTES PRN, 5 doses, Starting on Thu05/05/22 at 1012, Until Thu05/05/22 at 1618, Pain, Routine, PACU Given 05/05/2022 2:13 PM CLOTH BALE HEADER 0.2 mg Given 05/05/2022 2:04 PM CLOTH BALE HEADER 0.2 mg ketorolac (TORADOL) injection 15 mg 15 mg, IV, EVERY 6 HOURS PRN, Starting on Thu05/05/22 at 1620, Until Thu05/06/22 at 1619, Other (See Comment), Cramping or aching pain, Routine, Post-op - Floor Given 05/06/2022 10:39 AM CLOTH BALE HEADER 15 mg Given 05/05/2022 11:13 PM CLOTH BALE HEADER 15 mg Given 05/05/2022 4:48 PM CLOTH BALE HEADER 15 mg lactated ringers infusion IV, at 125 mL/hr, PRE-PROCEDURE CONTINUOUS, Starting on Thu05/05/22 at 0900, Until Thu05/05/22 at 1618, Routine, Pre-op New Bag 05/05/2022 9:22 AM CLOTH BALE HEADER 125 mL/hr lactated ringers infusion IV, at 125 mL/hr, CONTINUOUS, Starting on Thu05/05/22 at 1630, Until Thu05/06/22 at 1724, Routine, Post-op - Floor New Bag 05/06/2022 12:22 AM CLOTH BALE HEADER 125 mL/hr Rate Verify 05/05/2022 4:30 PM CLOTH BALE HEADER 125 mL/hr morphine 4 mg/mL injection 4 mg 4 mg, IV, EVERY 4 HOURS PRN, Starting on Thu05/05/22 at 1620, Until Thu05/06/22 at 1724, Pain (See admin instructions), Pain, Break-Through, Routine, Post-op - Floor Given 05/06/2022 12:17 AM CLOTH BALE HEADER 4 mg naloxone (NARCAN) 0.4 mg/mL injection 0.1 mg 0.1 mg, IV, SEE ADMIN INSTRUCTIONS, Starting on Thu05/05/22 at 1012, Until Thu05/06/22 at 1724, Routine, PACU ondansetron (ZOFRAN) 4 mg/2 mL injection 4 mg 4 mg, IV, POST-PROCEDURE ONCE PRN, 1 dose, Starting on Thu05/05/22 at 1013, Until Thu05/05/22 at 1337, Nausea/Emesis, Routine, PACU Feeding Started 05/05/2022 1:37 PM CLOTH BALE HEADER 4 mg pantoprazole (PROTONIX) injection 40 mg 40 mg, IV, DAILY, First dose on Thu05/06/22 at 0900, Until Discontinued, Routine, Post-op - Floor, Indication: Gastroesophageal reflux disease (GERD) Given 05/06/2022 9:00 AM CLOTH BALE HEADER 40 mg thiamine (VITAMIN B-1) 100 mg, folic acid 1 mg in dextrose 5% 100 mL IVPB IV, at 230 mL/hr, POST-PROCEDURE ONCE, 1 dose, Starting on Thu05/05/22 at 1800, Until Thu05/05/22 at 1830, Routine, Post-op - Floor New Bag 05/05/2022 6:00 PM CLOTH BALE HEADER 230 mL/hr documented in this encounter Active and Recently Administered Medications Times are shown in CLOTH BALE HEADER. Scheduled Medication Order 05/04/2022 05/05/2022 05/06/2022 bupivacaine-EPINEPHrine [...] reflux disease (GERD) 0900 (Given - Provider: Abmer Bran RN) thiamine (VITAMIN B-1) 100 mg, folic acid 1 mg in dextrose 5% 100 mL IVPB (COMPLETED) IV, at 230 mL/hr, POST-PROCEDURE ONCE, 1 dose, Starting on Thu05/05/22 at 1800, Until Thu05/05/22 at 1830, Routine, Post-op - Floor 1800 (New Bag - Provider: Scarlet Moser RN - Comment: barcode wont scan, checked [facility], correct med)1830 (Stopped - Provider: [...] DO) documented in this encounter Care Teams Pneumatic Jacketer Relationship Specialty [place] [address] [facility] [address] [place] [phone] PCP - General Internal Medicine 04/08/21 documented as of this encounter
--- OUTSIDE RECORDS SUMMARY | 2024-05-29 21:41 | XMS_ITS | Encounter Summary ---
Author Organization [facility] Address [address] [place] [address] Care Team Providers Care Field Technical Assistant Name Role Phone Jai Guadarrama MD Primary Care Provider +1- [phone] Reason for Visit * Reason Comments Preop Exam Needs pre-op exam fo r bariatric surgery. States that all she needs is a form filled out for the surgery. Also requesting dramamine patches as she plans on going on a cruise on March 22. Encounter Details Date Type Department Care Team (Late st Contact Info) Description 12/17/2021 3:30 PM CDT Office Visit [facility] Internal Medicine Angelica Jimenez [address] [facility] [address] [place] [phone] [place] [address] [place] [facility] [address] [place] [phone] [...] MD - 12/17/2021 3:25 PM CDT Renata Lie is here for Preop Exam (Needs pre-op [...] 1997 ??? HX LAP CHOLECYSTECTOMY 2005 ??? [place] ESOPHAGOGASTRODUODENOSCOPY TRANSORAL DIAGNOSTIC N/A 10/11/2021 ESOPHAGOGASTRODUODENOSCOPY performed by Jerrell Byrd DO at [facility] Family History Problem Relation Name [...] Never Immunization History Administered Date(s) Administered ??? ([employer]) (12 YR UP) COVID-19 VACCINE - EMERGENCY USE AUTHORIZATION, MRNA,[id number](PF) 30 MCG/0.3 ML IM SUSP 07/27/2020, 08/16/2020 [...] diseases documented in this encounter Care Teams Field Technical Assistant Relationship Specialty Start [place] [address] [facility] [address] [place] [phone] PCP - General Internal Medicine 04/08/21 documented as of this encounter
--- OUTSIDE RECORDS SUMMARY | 2024-05-29 21:41 | XMS_ITS | Encounter Summary ---
Author Organization [facility] Address [address] [place] [address] Care Team Providers Care Glass Cut Off Tender Name Role Phone Jai Guadarrama MD Primary Care Provider +1- [phone] Reason for Visit * Reason Onset Date Comments Nurse Navigation 05/07/2022 Encounter Details Date Type Department Care Team (Late st Contact Info) Description 05/07/2022 Telephone [facility]opa[facility]ics [address] [place] [address] Lorene Christianson, RN Nurse Navigation [...] Coronavirus/COVID-19? No / Unsure 04/22/2022 8:50 AM MIXING ROLL OPERATOR documented as of this encounter Miscellaneous Notes * Telephone Encounter - Lorene Christianson RN - 05/07/2022 2:08 PM CST Called patient on POD #2. Pt sounds very cheerful and tolerating liquids. Pt moving and is out and about. All questions and concerns addressed. NG ROLL OPERATOR documented in this encounter Plan of Treatment Not on file documented as of this encounter Visit Diagnoses Not on filedocumented in this encounter Care Teams Glass Cut Off Tender Relationship Specialty Start [place] [address] [facility] [address] [place] [phone] PCP - General Internal Medicine 04/08/21 documented as of this encounter
--- OUTSIDE RECORDS SUMMARY | 2024-05-29 21:41 | XMS_ITS | Encounter Summary ---
Author Organization [facility] Address [address] Kaplan: Epic Prelude [place]T [place] [address] Care Team Providers Care Pulverizer Tender Name Role Phone Jai Guadarrama MD Primary Care Provider +1- [phone] Encounter Details Date Type Department Care Team [...] Coronavirus/COVID-19? No / Unsure 04/22/2022 8:50 AM DIVING INSTRUCTOR documented as of this encounter Plan of Treatment Not on file documented as of this encounter Visit Diagnoses Not on filedocumented in this encounter Care Teams Pulverizer Tender Relationship Specialty [place] [address] [place] [phone] PCP - General Internal Medicine 04/08/21 documented as of this encounter
--- OUTSIDE RECORDS SUMMARY | 2024-05-29 21:41 | XMS_ITS | Encounter Summary ---
Author Organization [facility] Address [address] [place] [address] Care Team Providers Care Clinical Informatics Physician Name Role Phone Jai Guadarrama MD Primary Care Provider +1- [phone] Reason for Visit * Auth/Cert (Routine) Specialty Diagnoses / Procedures Referred By Contomega t Referred To Contact Perioperative Diagnoses RIGHT CARPAL TUNNEL SYNDROME Procedures MO WRIST ARTHROSCOP,RELEASE XVERS LIG MO WRIST ARTHROSCOP,RELEASE XVERS LIG MO REVISE MEDIAN N/CARPAL TUNNEL SURG CARPAL TUNNEL RELEASE ENDOSCOPIC [facility] [address] [place] [address] Referral ID Status Reason Start Date Expiration Date Visits Re quested Visits Authorized [id number] 1 1 Encounter Details Date Type Department Care Team (Latest Contact Info) Description 05/13/2022 5:30 AM CLINICAL OPERATIONS SPECIALIST - 05/13/2022 9:07 AM [facility] Hospital Encounter [facility] [address] [place] [address] Santana Lake MD [address] [place] [address] Carpal tunnel syndrome of right [...] Coronavirus/COVID-19? No / Unsure 05/08/2022 8:27 AM CLINICAL OPERATIONS SPECIALIST documented as of this encounter Last Filed Vital Signs Vital Sign Reading Time Taken Comments Blood Pressure 136/83 05/13/2022 8:44 AM CLINICAL OPERATIONS SPECIALIST Pulse 54 05/13/2022 8:44 AM CLINICAL OPERATIONS SPECIALIST Temperature 36.1 ??C (97 ??F) 05/13/2022 8:44 AM CLINICAL OPERATIONS SPECIALIST Respiratory Rate 16 05/13/2022 8:44 AM CLINICAL OPERATIONS SPECIALIST Oxygen Saturation 96% 05/13/2022 8:44 AM CLINICAL OPERATIONS SPECIALIST Inhaled Oxygen Concentration - - Weight 106.5 kg (234 lb 12.8 oz) 05/13/2022 6:42 AM CLINICAL OPERATIONS SPECIALIST Height 162.6 cm (5' 4 ) 05/13/2022 6:42 AM CLINICAL OPERATIONS SPECIALIST Body Mass Index 40.3 05/13/2022 6:42 AM CLINICAL OPERATIONS SPECIALIST documented in this encounter Discharge Instructions * Discharge Instructions* Margarita Pastor RN - 05/13/2022 8:41 AM CLINICAL OPERATIONS SPECIALIST [facility] Plastic surgery discharge instructions. F/u in my [...] questions. If you are not active on [email or web address], please sign up by visiting [email or web address] Then send me a message saying lorraine, and that you have now signed up for my [facility]. Santana Lake MD [facility] Plastic and Hand Surgery 1st choice M-F 8am-4pm: office, whirley operator (nights and weekends) SAFETY For the [...] or come to the Emergency Room at [facility] ([phone]) or the nearest Emergency Room. In an emergency, Call 911. ICAL OPERATIONS SPECIALIST documented in this encounter Medications at Time of Discharge Medication Sig Dispensed Refills Start Date End Date naloxone (NARCAN) 4 mg/spray [place], Non-Aerosol EMERGENCY USE ONLY: Administer 1 spray [...] health benefits of quitting, and current and shelter risks if continued smoking She is not [...] patient has not been seen by a equipment validation specialist for this complaint in the past. OBJECTIVE: [...] Santana Lake M.D. Hand and Plastic Surgeon [facility] Plastic Surgery ICAL OPERATIONS SPECIALIST documented in this encounter OR Notes * Darlyn-OP - Claudia Joshua RN - 05/13/2022 9:06 AM CST Took IV out of L hand, catheter intact, direct pressure applied. ICAL OPERATIONS SPECIALIST * Operative Report - Santana Lake MD - 05/13/2022 8:42 AM CLINICAL OPERATIONS SPECIALIST DATE OF SERVICE: 05/13/2022 NAME: Renata Lei : 1980 CSN: [id number] SURGEON Santana Lake MD. PREOPERATIVE DIAGNOSIS Right [...] fascia was identified and grasped using a burr picker. The antebrachial fascia was then spread [...] less than 30 minutes. Santana Lake MD ICAL OPERATIONS SPECIALIST * Darlyn-OP - Julisa Carrillo RN - 05/08/2022 8:37 AM CST Surgical orders unavailable at the time of patient's [facility] phone interview. ICAL OPERATIONS SPECIALIST * Darlyn-OP - Julisa Carrillo RN - 05/08/2022 8:31 AM CST Patient states she has not had any chances in her medical history or medications since her DOS . States she has the pre procedural instructions and has no further questions. Medications reviewed. ADVANCED PLANNING FOR MEDICATION USE * Unless otherwise ordered by a member of the [facility] Anesthesiology Staff. 1. STOP a. Seven (7) DAYS PRIOR TO SURGERY OR WHEN NOTIFIED IF < SEVEN DAYS: The use of all vitamins, herbal supplements, and other alternative substances. b. Seven (7) DAYS PRIOR TO SURGERY: The use of any UNPRESCRIBED Aspirin, Excedrin and NSAIDs which include Motrin, Ibuprofen, Aleve, and Naprosyn. CURRENT MEDICATION LIST Pre-Surgery Instructions Medication Instructions naloxone (NARCAN) 4 mg/spray [place], Non-Aerosol May use if needed the morning [...] morning of surgery with sip of water ICAL OPERATIONS SPECIALIST * Darlyn-OP - Sandy Logan RN - [...] call me back after speaking with patient. ICAL OPERATIONS SPECIALIST documented in this encounter Miscellaneous Notes * [...] strategies Outcome Met: patient calm and informed ICAL OPERATIONS SPECIALIST * Care Plan - Julisa Palma RN [...] perioperative experience Outcome Met: All concerns addressed ICAL OPERATIONS SPECIALIST documented in this encounter Plan of Treatment Not on file documented as of this encounter Procedures Procedure Name Priority Date/Time Associated Diagnosis Comments [place] NDSC WRST SURG W/RLS TRANSVRS CARPL LIGM 05/13/2022 7:20 AM CLINICAL OPERATIONS SPECIALIST RIGHT CARPAL TUNNEL SYNDROME Case Notes [facility] PP POC , URINE Routine 05/13/2022 6:25 AM CLINICAL OPERATIONS SPECIALIST documented in this encounter Results * POC , URINE (05/13/2022 6:25 AM CLINICAL OPERATIONS SPECIALIST) HCG QUAL URINE Negative Negative 05/13/2022 6:25 AM CLINICAL OPERATIONS SPECIALIST [facility] [employer] [facility] Urine 05/13/2022 6:25 AM CLINICAL OPERATIONS SPECIALIST 05/13/2022 1:04 PM CLINICAL OPERATIONS SPECIALIST Santana Lake MD POINT OF CARE T [facility]# [id number] [address] [place] [address] documented in this encounter Visit Diagnoses Diagnosis [...] Routine Continue from Pre-Op 05/13/2022 7:39 AM CLINICAL OPERATIONS SPECIALIST New Bag 05/13/2022 7:10 AM CLINICAL OPERATIONS SPECIALIST documented in this encounter Active and Recently Administered Medications Times are shown in CLINICAL OPERATIONS SPECIALIST. Scheduled Medication Order 05/11/2022 05/12/2022 05/13/2022 ceFAZolin [...] MD) documented in this encounter Care Teams Clinical Informatics Physician Relationship Specialty [place] [address] [facility] [address] [place] [phone] PCP - General Internal Medicine 04/08/21 documented as of this encounter
--- OUTSIDE RECORDS SUMMARY | 2024-05-29 21:41 | XMS_ITS | Encounter Summary ---
Author Organization [facility] Address [address] [place] [address] Care Team Providers Care Personnel Coordinator Name Role Phone Jai Guadarrama MD Primary Care Provider +1- [phone] Encounter Details Date Type Department Care Team (Late st Contact Info) Description 03/27/2022 Abstract [facility] Surgical Spec [place] [address] [place] [address] Jerrell Byrd, DO [address] [place] [address] Social History Tobacco Use Types Packs/Day [...] on filedocumented in this encounter Care Teams Personnel Coordinator Relationship Specialty Start [place] [address] [facility] [address] [place] [phone] PCP - General Internal Medicine 04/08/21 documented as of this encounter
--- OUTSIDE RECORDS SUMMARY | 2024-05-29 21:41 | XMS_ITS | Encounter Summary ---
Author Organization [facility] Address [address] [place] [address] Care Team Providers Care Geriatric Physician Name Role Phone Jai Guadarrama MD Primary Care Provider +1- [phone] Encounter Details Date Type Department Care Team (Late st Contact Info) Description 03/20/2022 Abstract [facility] Orthopaedics [address] [place] [address] Lorene Christianson, RN Social History [...] on filedocumented in this encounter Care Teams Geriatric Physician Relationship Specialty [place] [address] [place] [phone] PCP - General Internal Medicine 04/08/21 documented as of this encounter
--- OUTSIDE RECORDS SUMMARY | 2024-05-29 21:41 | XMS_ITS | Encounter Summary ---
Author Organization [facility] Address [address] Kaplan: Epic Prelude ADT [place] [address] Care Team Providers Care Profile Shaper Operator Name Role Phone Jai Guadarrama MD Primary Care Provider +1- [phone] Encounter Details Date Type Department Care Team [...] Coronavirus/COVID-19? No / Unsure 05/08/2022 8:27 AM SIMULATION ENGINEER documented as of this encounter Plan of Treatment Not on file documented as of this encounter Visit Diagnoses Not on filedocumented in this encounter Care Teams Profile Shaper Operator Relationship Specialty [place] [address] [place] [phone] PCP - General Internal Medicine 04/08/21 documented as of this encounter
--- OUTSIDE RECORDS SUMMARY | 2024-05-29 21:41 | XMS_ITS | Encounter Summary ---
Author Organization [facility] Address [address] [place] [address] Care Team Providers Care Handyman Name Role Phone aJi Guadarrama MD Primary Care Provider +- [phone] Reason for Visit * Auth/Cert Specialty Diagnoses / Procedures Referred By Contac t Referred To Contact Diagnoses Morbid obesity Morbid obesity [E66.01] Procedures UT LAP, THELMA RESTRICT PROC, LONGITUDINAL GASTRECTOMY UT LAP, THELMA RESTRICT PROC, LONGITUDINAL GASTRECTOMY Jerrell Byrd, [address] [address] Referral ID Status Reason Start Date Expiration Date Visits Re quested Visits Authorized [id number] 03/21/2022 1 1 Encounter Details Date Type Department Care Team (Late st Contact Info) Description 05/05/2022 11:44 AM TAFFY PULLER Anesthesia Event [facility] Operating Room [address] [place] [address] Marta Ferris DO [address] [place] [address] Roverto Britton PA-C [address] [place] [address] Anesthesia Record Procedure Summary Procedure [...] area or ICU, continuously present and monitoring ([id number]) 1318 Out of Room This event disp [...] Coronavirus/COVID-19? No / Unsure 04/22/2022 8:50 AM TAFFY PULLER documented as of this encounter OR Notes * Anesthesia Post-Op Follow-up Note - Amber Ryan RN - 05/06/2022 11:05 AM CST 05/06/2022 11:05 AM Renata Garciason No apparent Anesthesia related complications Amber Ryan RN Y PULLER * Anesthesia Postprocedure Evaluation - Harman Crespo [...] No notable events documented. Harman Crespo MD Y PULLER * Anesthesia Handoff - Chandan Luo Jr., AA-C - 05/05/2022 1:22 PM TAFFY PULLER Post-Anesthetic transfer of care report elements to [...] 1:20 PM) 1:22 PM MIKE Sheppard Jr Y PULLER * Anesthesia Procedure Notes - Chandan Luo Jr., AA-C - 05/05/2022 12:03 PM CSTAssociated Order(s): Airway Airway Date/Time: 05/05/2022 11:55 AM Location: OR Plan: routine intubation Patient Identity Confirmed by: Verbally with patient and armband Airway: not difficult Staffing Performed By: INVESTOR RELATIONS COORDINATOR/Resident: Chandan Luo Jr., AA-C Indications and Patient [...] lips and teeth in pre anesthetic condition Y PULLER * Anesthesia Preprocedure Evaluation - Marta Ferris [...] discussed with Patient. Plan discussed with Anesthesiologist Fishing Tool Supervisor. Post-op Pain Control Plan to use IV or IM medication and Per surgeon for post-op pain control. Plan for postoperative opioid use Smoking Compliance Patient did not smoke on day of surgery Y PULLER documented in this encounter Miscellaneous Notes * Addendum Note - Amber Ryan RN - 05/06/2022 11:06 AM CST Addendum created 05/06/22 1106 by Amber Ryan RN Clinical Note Signed, Intraprocedure Event edited Y PULLER documented in this encounter Plan of Treatment Not on file documented as of this encounter Procedures Procedure Name Priority Date/Time Associated Diagnosis Comments UT ANES INSERT ENDOTRACHEAL AIRWAY Routine 05/05/2022 11:55 AM TAFFY PULLER documented in this encounter Results * UT ANES INSERT ENDOTRACHEAL AIRWAY (05/05/2022 11:55 AM TAFFY PULLER) Narrative Chandan Luo Jr., AA-C - 05/05/2022 11:55 AM TAFFY PULLER Chandan Luo Jr., AA-C ? 05/05/2022 12:04 PM Airway Date/Time: 05/05/2022 11:55 AM Location: OR Plan: routine intubation Patient Identity Confirmed by: ??Verbally with patient and armband Airway: not difficult Staffing Performed By: INVESTOR RELATIONS COORDINATOR/Resident: Chandan Luo Jr., AA-C Indications and Patient [...] Indication: Surgical prophylaxis Given 05/05/2022 12:01 PM TAFFY PULLER 2,000 mg dexAMETHasone (DECADRON) 4 mg/mL injection IV, INTRA-PROCEDURE PRN, Starting on Thu05/05/22 at 1201, Until Thu05/05/22 at 1323, Routine, Anesthesia Intra-op Given 05/05/2022 12:01 PM TAFFY PULLER 8 mg famotidine PF (PEPCID) 20 mg/2 mL injection IV, INTRA-PROCEDURE PRN, Starting on Thu05/05/22 at 1144, Until Thu05/05/22 at 1323, Routine, Anesthesia Intra-op Given 05/05/2022 11:44 AM TAFFY PULLER 20 mg fentaNYL PF (SUBLIMAZE) 50 mcg/mL injection IV, INTRA-PROCEDURE PRN, Starting on Thu05/05/22 at 1147, Until Thu05/05/22 at 1323, Routine, Anesthesia Intra-op Given 05/05/2022 11:47 AM TAFFY PULLER 100 mcg HYDROmorphone (DILAUDID) 2 mg/mL injection IV, INTRA-PROCEDURE PRN, Starting on Thu05/05/22 at 1206, Until Thu05/05/22 at 1323, Routine, Anesthesia Intra-op Given 05/05/2022 1:01 PM TAFFY PULLER 0.5 mg Given 05/05/2022 12:06 PM TAFFY PULLER 0.5 mg labetaloL (NORMODYNE;TRANDATE) 5 mg/mL injection IV, INTRA-PROCEDURE PRN, Starting on Thu05/05/22 at 1241, Until Thu05/05/22 at 1323, Routine, Anesthesia Intra-op Given 05/05/2022 12:41 PM TAFFY PULLER 5 mg lactated ringers bolus solution 1,000 mL 1,000 mL, IV, PRE-PROCEDURE ONCE, 1 dose, Starting on Thu05/05/22 at 0846, Until Thu05/05/22 at 1309, at 2,000 mL/hr, Administer over 30 Minutes, Routine, Pre-op New Bag 05/05/2022 1:09 PM TAFFY PULLER New Bag 05/05/2022 11:44 AM TAFFY PULLER lidocaine (PF) (XYLOCAINE MPF) 60 mg/3 mL (2 %) injection syringe IV, INTRA-PROCEDURE PRN, Starting on Thu05/05/22 at 1152, Until Thu05/05/22 at 1323, Routine, Anesthesia Intra-op Given 05/05/2022 11:52 AM TAFFY PULLER 100 mg midazolam (VERSED) injection IV, INTRA-PROCEDURE PRN, Starting on Thu05/05/22 at 1144, Until Thu05/05/22 at 1323, Routine, Anesthesia Intra-op Given 05/05/2022 11:44 AM TAFFY PULLER 2 mg ondansetron (ZOFRAN) 4 mg/2 mL injection IV, INTRA-PROCEDURE PRN, Starting on Thu05/05/22 at 1145, Until Thu05/05/22 at 1323, Routine, Anesthesia Intra-op Given 05/05/2022 11:45 AM TAFFY PULLER 4 mg phenylephrine 1 mg/10 mL (100 mcg/mL) injection IV, INTRA-PROCEDURE PRN, Starting on Thu05/05/22 at 1219, Until Thu05/05/22 at 1323, Routine, Anesthesia Intra-op Given 05/05/2022 12:19 PM TAFFY PULLER 100 mcg propofoL (DIPRIVAN) injection IV, INTRA-PROCEDURE PRN, Starting on Thu05/05/22 at 1152, Until Thu05/05/22 at 1323, Anesthesia Intra-op New Bag 05/05/2022 11:53 AM TAFFY PULLER 50 mcg/kg/min 33.15 mL/hr Given 05/05/2022 11:52 AM TAFFY PULLER 200 mg rocuronium injection IV, INTRA-PROCEDURE PRN, Starting on Thu05/05/22 at 1152, Until Thu05/05/22 at 1323, Routine, Anesthesia Intra-op Given 05/05/2022 12:31 PM TAFFY PULLER 10 mg Given 05/05/2022 11:52 AM TAFFY PULLER 50 mg sugammadex (BRIDION) 100 mg/mL injection IV, INTRA-PROCEDURE PRN, Starting on Thu05/05/22 at 1305, Until Thu05/05/22 at 1323, Routine, Anesthesia Intra-op Given 05/05/2022 1:05 PM TAFFY PULLER 200 mg documented in this encounter Care Teams Handyman Relationship Specialty Start [place] [address] [facility] [address] [place] [phone] PCP - General Internal Medicine 04/08/21 documented as of this encounter
--- OUTSIDE RECORDS SUMMARY | 2024-05-29 21:41 | XMS_ITS | Encounter Summary ---
Author Organization [facility] Address [address] [place] [address] Care Team Providers Care Pharmacist Technician Name Role Phone Jai Guadarrama MD Primary Care Provider +1- [phone] Encounter Details Date Type Department Care Team (Late st Contact Info) Description 01/22/2022 Orders Only [facility] Pre Procedure Viral Testing [place] [id number] [place] [phone] Ale Tomas Contact with and (suspected) exposure [...] A) Not Detected 01/22/2022 11:37 PM CDT [facility] PERFORMING LAB [facility] 01/22/2022 11:37 PM CDT [facility] Upper Respiratory ENTIRE NASOPHARYNX / Unknown Collection / Unknown 01/22/2022 4:38 PM CDT 01/22/2022 9:13 PM CDT [facility] 01/22/2022 11:37 PM CDT This test has [...] 2019-Novel Coronavirus. Robert Pedersen MD MICROBIOLOGY - [facility] ORDERABLES [facility] CLIA# [id number] [address] [place] [address] documented in this encounter Visit Diagnoses Diagnosis Contact with and (suspected) exposure to covid-19 documented in this encounter Additional Health Concerns Infection Onset Date Last Indicated Resolved Time R/O COVID-19 01/22/2022 01/22/2022 01/22/2022 11:3 7 PM CDT COVID-19 01/22/2022 01/22/2022 02/21/2022 1:16 AM CDT documented as of this encounter Care Teams Pharmacist Technician Relationship Specialty [place] [address] [place] [address] PCP - General Internal Medicine 04/08/21 documented as of this encounter
--- OUTSIDE RECORDS SUMMARY | 2024-05-29 21:41 | XMS_ITS | Encounter Summary ---
Author Organization [facility] Address [address] [place] [address] Care Team Providers Care Windows 7 Deployment Lead Name Role Phone Jai Guadarrama MD Primary Care Provider +1- [phone] Encounter Details Date Type Department Care Team (Latest Contact Info) Description 01/22/2022 4:40 PM CDT - 01/22/2022 11:59 PM CDT Hospital Encounter [facility] Pre Procedure Viral Testing [facility] [address] [place] [phone] [place] [address] [facility] [address] [place] [address] Discharge Disposition: Home or Self Care [...] documented as of this encounter Care Teams Windows 7 Deployment Lead Relationship Specialty [place] [address] [facility] [address] [place] [phone] PCP - General Internal Medicine 04/08/21 documented as of this encounter
--- OUTSIDE RECORDS SUMMARY | 2024-05-29 21:41 | XMS_ITS | Encounter Summary ---
Author Organization [facility] Address [address] [place] [address] Care Team Providers Care Supply Service Worker Name Role Phone Jai Guadarrama MD Primary Care Provider +1- [phone] Reason for Visit * Reason Comments Carpal Tunnel Encounter Details Date Type Department Care Team (Late st Contact Info) Description 04/21/2022 2:00 PM AIRLINE HOSTESS Office Visit [facility] PLASTIC SURGERY [address] [place] [address] Santana Lake MD [address] [place] [address] Carpal tunnel syndrome of right [...] Coronavirus/COVID-19? No / Unsure 04/08/2022 12:14 PM AIRLINE HOSTESS documented as of this encounter Last Filed Vital Signs Vital Sign Reading Time Taken Comments Blood Pressure 125/87 04/21/2022 1:51 PM AIRLINE HOSTESS Pulse - - Temperature - - Respiratory Rate - - Oxygen Saturation - - Inhaled Oxygen Concentration - - Weight 115.5 kg (254 lb 9.6 oz) 04/21/2022 1:51 PM AIRLINE HOSTESS Height 162.6 cm (5' 4 ) 04/21/2022 1:51 PM AIRLINE HOSTESS Body Mass Index 43.7 04/21/2022 1:51 PM AIRLINE HOSTESS documented in this encounter Progress Notes * Santana Lake MD - 04/21/2022 1:53 PM CST [facility]: CC: Right Carpal Tunnel Syndrome Who referred you to Dr. 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 [...] Lake M.D. Hand and Plastic Surgeon [facility] Plastic Surgery INE HOSTESS documented in this encounter Plan of Treatment Not on file documented as of this encounter Visit Diagnoses Diagnosis Carpal tunnel syndrome of right wrist- Primary Carpal tunnel syndrome Carpal tunnel syndrome of left wrist Carpal tunnel syndrome documented in this encounter Care Teams Supply Service Worker Relationship Specialty [place] [address] [facility] [address] [place] [phone] PCP - General Internal Medicine 04/08/21 documented as of this encounter
--- OUTSIDE RECORDS SUMMARY | 2024-05-29 21:41 | XMS_ITS | Encounter Summary ---
Author Organization [facility] Address [address] [place] [address] Care Team Providers Care Electronics Engineer Name Role Phone Jai Guadarrama MD Primary Care Provider +1- [phone] Encounter Details Date Type Department Care Team (Late st Contact Info) Description 11/21/[address] [facility] Surgical Spec [place] [address] [place] [address] Robbi Garcia, RN Social History [...] on filedocumented in this encounter Care Teams Electronics Engineer Relationship Specialty [place] [address] [facility] [address] [place] [phone] PCP - General Internal Medicine 04/08/21 documented as of this encounter
--- OUTSIDE RECORDS SUMMARY | 2024-05-29 21:41 | XMS_ITS | Encounter Summary ---
Author Organization [facility] Address [address] [place] [address] Care Team Providers Care Driver Supervisor Name Role Phone Jai Guadarrama MD Primary Care Provider +1- [phone] Encounter Details Date Type Department Care Team (Late st Contact Info) Description 02/19/2022 Abstract [facility] Orthopaedics [address] [place] [address] Lorene Christianson, RN Social History [...] documented as of this encounter Care Teams Driver Supervisor Relationship Specialty [place] [address] [place] [phone] PCP - General Internal Medicine 04/08/21 documented as of this encounter
--- OUTSIDE RECORDS SUMMARY | 2024-05-29 21:41 | XMS_ITS | Encounter Summary ---
Author Organization [facility] Address [address] [place] [address] Care Team Providers Care Veterinary Science Teacher Name Role Phone Jai Guadarrama MD Primary Care Provider +1- [phone] Encounter Details Date Type Department Care Team (Late st Contact Info) Description 01/22/2022 Orders Only [facility] Pre Procedure Viral Testing [place] [address] [place] [address] [place] [address] [place] [facility] [address] [place] [address] Contact with and (suspected) exposure to [...] A) Not Detected 01/22/2022 11:37 PM CDT [facility] LABORATORY SERVICES [facility] LAB [facility] 01/22/2022 11:37 PM CDT [facility] Upper Respiratory ENTIRE NASOPHARYNX / Unknown Collection / Unknown 01/22/2022 4:38 PM CDT 01/22/2022 9:13 PM CDT Narrative [facility] - 01/22/2022 11:37 PM CDT This [...] 2019-Novel Coronavirus. Robert Pedersen MD MICROBIOLOGY - [facility] AL ORDERABLES [facility] [employer] [facility] CLIA# [id number] [place] [address] documented in this encounter Visit Diagnoses Diagnosis Contact with and (suspected) exposure to covid-19- Primary documented in this encounter Additional Health Concerns Infection Onset Date Last Indicated Resolved Time R/O COVID-19 01/22/2022 01/22/2022 01/22/2022 11:3 7 PM CDT documented as of this encounter Care Teams Veterinary Science Teacher Relationship Specialty [place] [address] [facility] [address] [place] [phone] PCP - General Internal Medicine 04/08/21 documented as of this encounter
--- OUTSIDE RECORDS SUMMARY | 2024-05-29 21:41 | XMS_ITS | Encounter Summary ---
Author Organization [facility] Address [address] [place] [address] Care Team Providers Care Electrolysis Needle Operator Name Role Phone Jai Guadarrama MD Primary Care Provider [phone] Encounter Details Date Type Department Care Team (Latest Contact Info) Description 04/22/2022 8:56 AM [facility] - 04/22/2022 11:59 PM [facility] Hospital Encounter [facility] [address] [place] [address] Tung Hill, DO [address] [address] Discharge Disposition: Home or Self [...] area or ICU, continuously present and monitoring ([phone]) 1318 Out of Room This event disp lays the Out of Room time documented in the Surgical Log. Deleting this event will not remove it from the log but will remove it from the Grid and Graph timeline. 1322 An Stop 1322 Hand-off to Receiving Clinic ebth Post-Anesthetic transfer of care report elements to [...] Coronavirus/COVID-19? No / Unsure 04/22/2022 8:50 AM ZIPPER SLIDE ATTACHER documented as of this encounter Last Filed Vital Signs Vital Sign Reading Time Taken Comments Blood Pressure 115/83 04/22/2022 9:11 AM ZIPPER SLIDE ATTACHER Pulse 68 04/22/2022 9:11 AM ZIPPER SLIDE ATTACHER Temperature - - Respiratory Rate - - Oxygen Saturation 97% 04/22/2022 9:11 AM ZIPPER SLIDE ATTACHER Inhaled Oxygen Concentration - - Weight 114.3 kg (252 lb) 04/22/2022 9:11 AM ZIPPER SLIDE ATTACHER Height 162.6 cm (5' 4 ) 04/22/2022 9:11 AM ZIPPER SLIDE ATTACHER Body Mass Index 43.26 04/22/2022 9:11 AM ZIPPER SLIDE ATTACHER documented in this encounter Discharge Instructions * Discharge Instructions* Pamela Shah RN - 04/22/2022 9:35 AM ZIPPER SLIDE ATTACHER Images from the original note were not included. [facility] Pre-Procedure Instructions PACE PACE Name: Lela Lin Age: 42 y.o. Please report to the: Surgery Center [address] [address] Date of Procedure: 05/05/2022 Please follow these [...] If you have any questions, call the [facility] at [phone]; Thursday-Thursday 7:30am-4:00pm PLEASE NOTIFY your surgeon promptly [...] your surgery. BRING your insurance cards and driver license technician's license or photo ID. DO NOT BRING [...] otherwise ordered by a member of the [facility] Anesthes[facility] Staff. 1. STOP a. Seven (7) DAYS PRIOR TO SURGERY OR WHEN NOTIFIED IF < SEVEN DAYS: The use of all vitamins, herbal supplements, and other alternative substances. b. Seven (7) DAYS PRIOR TO SURGERY: The use of any UNPRESCRIBED Aspirin, Excedrin and NSAIDs which include Motrin, Ibuprofen, Aleve, and Naprosyn. ER SLIDE ATTACHER documented in this encounter Medications at Time of Discharge Medication Sig Dispensed Refills Start Date End Date naloxone (NARCAN) 4 mg/spray [place], Non-Aerosol EMERGENCY USE ONLY: Administer 1 spray [...] Armando Morales MD - 04/22/2022 9:00 AM ZIPPER SLIDE ATTACHER Pre-Procedure Anesthesiology Consultation and Evaluation (PACE) Service 04/22/2022 10:19 AM Name: Lela Lin Age: 42 y.o. Sex: female CSN: [id number] Procedure: Procedure(s): GASTRECTOMY LONGITUDINAL LAPAROSCOPIC Surgeons/Assistants: Surgeon(s) [...] REPLACEMENT Left 1998 HX LAP CHOLECYSTECTOMY 2006 [place] ESOPHAGOGASTRODUODENOSCOPY TRANSORAL DIAGNOSTIC N/A 10/11/2021 ESOPHAGOGASTRODUODENOSCOPY performed by Tung Hill DO at [facility] Social History Tobacco Use [...] Endocrine negative No results found for: HGBA1C, [id number] Renal:negative Hematology/Oncology:negative Lab Results Component Value Date/Time [...] in this case, is defined as , NV or cardiac arrest. DASI Score = (The higher the score (ranges from 0 to 58.2) the higher the functional status. VO 2 peak (mL/kg/min) = 0.43 x DASI + 9.6 METs (metabolic equivalents) = VO 2 peak / 3.5) : A DASI score of 34 represents a threshold for identifying patients at risk for myocardial injury,myocardial infarction, [id number] complications, and new disability. Clinical Frailty Scale= ([place] Study on Health & Aging, Revised 2008.2. K. Rudolph et al. A global clinical measureof fitness and frailty in elderly people. CMAJ 2005;173:489-495) Risks/Alternatives discussed. Questions solicited and answered. Yes Postop pain management discussed yes Smoking/Tobacco Counseling: None Recommendations:None REPORT AND NECESSARY FOLLOW-UP History and physical performed in [facility]; tests (ECG, blood work) reviewed. Abnormal Results Found: no Further Testing or Evaluation Required: no Final [facility] Review: May proceed with procedure/surgery: yes Evaluation and management of patient, which requires a medically appropriate history and/or examination:05649 - Established (20-29 minutes total time) - [...] documented except where noted. Armando Morales MD ER SLIDE ATTACHER * Jasmin-OP - Pamela Shah RN - 04/22/2022 9:00 AM CST Images from the original note were not included. YOGI SOL PACE Routine Orders Protocol Approved by: [facility] - Medical Executive Committee Approval Date: 01/30/2022 ORDERS ARE ENTERED ???PER PROTOCOL?? Enter the protocol in the patient's electronic health record using smart phrase: .paceroutineordersprotocol Laboratory Orders: PACE/Anesthesiology Care Screening for Procedures Laboratory exams obtained within 3 months prior to surgery are acceptable if normal, or at baseline. Hematocrit/Hemoglobin (Ejm7512) Cases of expected major blood loss in patients of any age as evidenced by an order for Type and Cross or Type and Screen. PT/INR (Oyj239) should be drawn day of surgery for patients: Taking Warfarin (Coumadin) or who have had Warfarin (Coumadin) discontinued within prior 7 days BMP (Lab15) Patients with: Diabetes Renal disease Dialysis patients: Day of Surgery; If dialysis on day of surgery, post-dialysis Patients taking the following medications: Digoxin Diuretics Steroids BUN (Kwn670)/ Serum Cr (Lab66) When use of intravenous [...] otherwise ordered by a member of the [facility] Staff. STOP Seven (7) DAYS PRIOR [...] 24 HOURS PRIOR TO PLANNED ARRIVAL AT [facility]: use of angiotensin-converting enzyme (JAYLIN) inhibitor and angiotensin receptor jin (ARB). HOLD ON THE MORNING OF SURGERY/PROCEDURE: Diuretics (EXCEPTION: patients with CHF) Opioid ANTAGONISTS Continue-Prescribed medications on usual schedule and take medication day of surgery with sips of water to swallow Aspirin and NSAIDS unless specifically instructed by surgeon to discontinue. Patients taking a gabapentinoid SHUTTLE FILLER continue usual medication and doses up to and on the day of procedure All other prescription medicines on routine schedule as prescribed, unless instructed otherwise Blood Bank: For surgical procedures, prepare blood per [facility] Blood Bank Orders and Patient Identification for Blood Products Policy unless additional blood or blood products have been ordered by a provider, then follow provider order Educational Materials: (to be provided to patients if relevant to their care and present in person to the [facility]) [facility] NPO Guidelines Attachment [facility] Nutrition Before Surgery Guidelines [facility] Instructions for Patient for Insulin Pump (for diabetic patients only) [facility] Pre-Anesthesia Patient Medication Instruction Sheet Attachment (for diabetic patients only) ER SLIDE ATTACHER documented in this encounter Plan of Treatment Scheduled Orders Name Type Priority Associated Diagnoses Orde r Schedule EKG 12-LEAD ECG Routine Morbid obesity with BMI of 40.0-44.9, adult Ordered: 04/22/2022 documented as of this encounter Procedures Procedure Name Priority Date/Time Associated Diagnosis Comments ZINC LEVEL Routine 04/22/2022 9:40 AM ZIPPER SLIDE ATTACHER Morbid obesity with BMI of 40.0-44.9, adult VITAMIN B12 AND FOLATE Routine 9:40 AM ZIPPER SLIDE ATTACHER Morbid obesity with BMI of 40.0-44.9, adult IRON, TIBC, AND PERCENT SATURATION Routine 04/22/2022 9:40 AM ZIPPER SLIDE ATTACHER Morbid obesity with BMI of 40.0-44.9, adult BLOOD BANK AB IDENT Routine 04/22/2022 9 :40 AM ZIPPER SLIDE ATTACHER CBC WITH DIFFERENTIAL Routine 04/22/2022 9:40 AM ZIPPER SLIDE ATTACHER Morbid obesity with BMI of 40.0-44.9, adult VITAMIN D 25 HYDROXY Routine 04/22/2022 9:40 AM ZIPPER SLIDE ATTACHER Morbid obesity with BMI of 40.0-44.9, adult PTT Routine 04/22/2022 9:40 AM ZIPPER SLIDE ATTACHER Morbid obesity with BMI of 40.0-44.9, adult PROTIME-INR Routine 04/22/2022 9:40 AM ZIPPER SLIDE ATTACHER Morbid obesity with BMI of 40.0-44.9, adult TYPE AND SCREEN Routine 04/22/2022 9:40 AM ZIPPER SLIDE ATTACHER DIRECT ANTIGLOBULIN TEST Routine 04/22/2022 9:40 AM ZIPPER SLIDE ATTACHER TSH Routine 04/22/2022 9:40 AM ZIPPER SLIDE ATTACHER Morbid obesity with BMI of 40.0-44.9, adult VITAMIN B1 LEVEL Routine 04/22/2022 9:40 AM ZIPPER SLIDE ATTACHER Morbid obesity with BMI of 40.0-44.9, adult HEMOGLOBIN A1C Routine 04/22/2022 9:40 AM ZIPPER SLIDE ATTACHER Morbid obesity with BMI of 40.0-44.9, adult FERRITIN Routine 04/22/2022 9:40 AM ZIPPER SLIDE ATTACHER Morbid obesity with BMI of 40.0-44.9, adult LIPID PANEL Routine 04/22/2022 9:40 AM ZIPPER SLIDE ATTACHER Morbid obesity with BMI of 40.0-44.9, adult COMPREHENSIVE METABOLIC PANEL Routine 04/22/2022 9:40 AM ZIPPER SLIDE ATTACHER Morbid obesity with BMI of 40.0-44.9, adult EKG 12-LEAD Routine 04/22/2022 9:35 AM ZIPPER SLIDE ATTACHER documented in this encounter Results * XR CHEST PA AND LATERAL 2 VW (04/22/2022 10:49 AM ZIPPER SLIDE ATTACHER) Anatomical Region Laterality Modality Chest Computed Radiogr aphy 04/22/2022 10:5 0 AM ZIPPER SLIDE ATTACHER Impressions 04/22/2022 12:58 PM ZIPPER SLIDE ATTACHER IMPRESSION: No evidence of active disease in the chest. DICTATION LOCATION: Location 1 [facility] 04/22/2022 12:58 PM ZIPPER SLIDE ATTACHER EXAMINATION: PA AND LATERAL CHEST RADIOGRAPH DATE: [...] the chest. DICTATION LOCATION: Location 1 - [facility] Tung Quincy Carson [facility] O RDERABLES * BLOOD BANK AB IDENT (04/22/2022 9:40 AM ZIPPER SLIDE ATTACHER) Pathologist [facility] ANTIBODY #1 Anti-c 04/22/2022 3:46 PM ZIPPER SLIDE ATTACHER [facility] Blood Venipuncture / Unknown 04/22/2022 9:40 AM ZIPPER SLIDE ATTACHER 04/22/2022 10:52 AM ZIPPER SLIDE ATTACHER Tung Quincy Hill DO BLOOD BANK ORDERABLE S Performing Organization Address [facility]/ZIP Co de Phone Number [facility] CLIA# [id number] [address] [place] [address] * DIRECT ANTIGLOBULIN TEST W/REFLEX (04/22/2022 9:40 AM ZIPPER SLIDE ATTACHER) Pathologist [facility] DIRECT ANTIGLOBULIN POLY Negative 04/22/2022 1:37 PM ZIPPER SLIDE ATTACHER [facility] Blood Venipuncture / Unknown 04/22/2022 9:40 AM ZIPPER SLIDE ATTACHER 04/22/2022 10:52 AM ZIPPER SLIDE ATTACHER Tung Hill DO BLOOD BANK ORDERABLE S [facility] CLIA# [id number] [address] [place] [address] * (ABNORMAL) CBC WITH DIFFERENTIAL (04/22/2022 9:40 AM ZIPPER SLIDE ATTACHER) [facility] WBC 7.0 4.0 - 9.8 K/uL 04/22/2022 11:01 AM ZIPPER SLIDE ATTACHER [facility] RBC 5.00(H) 3.90 - 4.90 M/uL 04/22/2022 11:01 AM [facility] HEMOGLOBIN 14.1 11.8 - 14.8 g/dL 04/22/2022 11:01 AM [facility] HEMATOCRIT 43.5 35.5 - 44.0 % 04/22/2022 11:01 AM [facility] MCV 87.0 82.0 - 99.0 fL 04/22/2022 11:01 AM [facility] MCH 28.2 27.2 - 32.6 pg 04/22/2022 11:01 AM [facility] MCHC 32.4 31.5 - 35.5 g/dL 04/22/2022 11:01 AM [facility] RDW 12.5 11.5 - 14.5 % 04/22/2022 11:01 AM [facility] RDW-STDEV 39.7 37.1 - 48.7 fL 04/22/2022 11:01 AM [facility] PLATELETS 310 140 - 350 K/uL 04/22/2022 11:01 AM [facility] MPV 11.1 9.3 - 12.4 fL 04/22/2022 11:01 AM [facility] NEUTROPHILS 55 % 04/22/2022 11:01 AM [facility] LYMPHOCYTES 32 % 04/22/2022 11:01 AM [facility] MONOCYTES 8 % 04/22/2022 11:01 AM [facility] EOSINOPHILS 5 % 04/22/2022 11:01 AM [facility] BASOPHILS 1 % 04/22/2022 11:01 AM [facility] IMMATURE GRANULOCYTES 0 % 04/22/2022 11:01 AM [facility] NEUTROPHIL ABSOLUTE 3.81 1.90 - 7.00 K/uL 04/22/2022 11:01 AM [facility] LYMPHOCYTE ABSOLUTE 2.22 0.70 - 4.50 K/uL 04/22/2022 11:01 AM ZIPPER SLIDE ATTACHER [employer] [facility] - [facility] MONOCYTE ABSOLUTE 0.52 0.10 - 1.30 K/uL 04/22/2022 11:01 AM ZIPPER SLIDE ATTACHER [employer] [facility] - [facility] EOSINOPHIL ABSOLUTE 0.33 0.00 - 0.70 K/uL 04/22/2022 11:01 AM ZIPPER SLIDE ATTACHER [employer] [facility] - [facility] BASOPHILS ABSOLUTE 0.05 0.00 - 0.20 K/uL 04/22/2022 11:01 AM ZIPPER SLIDE ATTACHER [employer] [facility] - [facility] IMMATURE GRANULOCYTES ABSOLUTE 0.03 0.00 - 0.03 K/uL 04/22/2022 11:01 AM ZIPPER SLIDE ATTACHER [employer] [facility] - [facility] Blood Venipuncture / Unknown 04/22/2022 9:40 AM ZIPPER SLIDE ATTACHER 04/22/2022 10:52 AM ZIPPER SLIDE ATTACHER Tung Hill DO HEMATOLOGY ORDERABLE S [facility] CLIA# [id number] [address] [place] [address] * TYPE AND SCREEN (04/22/2022 9:40 AM ZIPPER SLIDE ATTACHER) ABO GROUP O 04/22/2022 1:09 PM [facility] RH (D) TYPE Positive 04/22/2022 1:09 PM ZIPPER SLIDE ATTACHER [employer] [facility] ANTIBODY SCREEN Positive 04/22/2022 1:09 PM ZIPPER SLIDE ATTACHER [employer] [facility]ATORY SERVICES -- [facility] Blood Venipuncture / Unknown 04/22/2022 9:40 AM ZIPPER SLIDE ATTACHER 04/22/2022 10:52 AM ZIPPER SLIDE ATTACHER Tung Hill DO BLOOD BANK ORDERABLE S [facility] CLIA# [id number] [address] [place] [address] * ZINC LEVEL (04/22/2022 9:40 AM ZIPPER SLIDE ATTACHER) ZINC LEVEL 84 60 - 130 mcg/dL 04/24/2022 7:37 PM ZIPPER SLIDE ATTACHER [facility] Comment: This test was developed and its analytical performance characteristics have been determined by [employer]. It has not been cleared or approved by the FDA. This assay has been validated pursuant to the CLIA regulations and is used for clinical purposes. Blood Venipuncture / Unknown 04/22/2022 9:40 AM ZIPPER SLIDE ATTACHER 04/22/2022 10:52 AM ZIPPER SLIDE ATTACHER Narrative [facility] - 04/24/2022 7:37 PM ZIPPER SLIDE ATTACHER Performing Organization Information: ?Site ID: [id number] ?Name: [employer] Dudley ?Address: [address] [place] [id number] ?Director: Shyam Roberts M.D. Tung Hill DO CHEMISTRY ORDERABLES Performing Organization Address [facility] de Phone Number [facility] [phone] * VITAMIN B1 LEVEL (04/22/2022 9:40 AM ZIPPER SLIDE ATTACHER) Pathologist [facility] VITAMIN B1 13 8 - 30 nmol/L 04/26/2022 10:35 AM [facility] Comment: Vitamin supplementation within 24 hours prior to blood draw may affect the accuracy of results. ? This test was developed and its analytical performance characteristics have been determined by [employer]. It has not been cleared or approved by the FDA. This assay has been validated pursuant to the CLIA regulations and is used for clinical purposes. Blood Venipuncture / Unknown 04/22/2022 9:40 AM ZIPPER SLIDE ATTACHER 04/22/2022 10:52 AM ZIPPER SLIDE ATTACHER Narrative [facility] - 04/26/2022 10:35 AM ZIPPER SLIDE ATTACHER Performing Organization Information: ?Site ID: [id number] ?Name: [employer] Bragg ?Address: [address] [place] [address] ?Director: Armando Calvin M.D. Tung Hill DO CHEMISTRY ORDERABLES Performing Organization Address City/[facility]/ZIP Co de Phone Number [facility] [phone] * (ABNORMAL) VITAMIN D 25 HYDROXY (04/22/2022 9:40 AM ZIPPER SLIDE ATTACHER) Pathologist [facility] VITAMIN D TOTAL (25OH) 29(L) 30 - 100 ng/mL 04/22/2022 11:42 AM [facility] [employer] [facility] Blood Venipuncture / Unknown 04/22/2022 9:40 AM ZIPPER SLIDE ATTACHER 04/22/2022 10:52 AM [facility] Narrative [facility] [employer] [facility] - 04/22/2022 11:42 AM [facility] Interpretive Data Chart: Deficient: ? 0 - 20 ng/mL Insufficient: ?21 - 29 ng/mL Sufficient: ?30 - 100 ng/mL Increased Risk of Hypercalciuria: ??>100 ng/ml Toxic: ? >150 ng/ml Tung Hill DO CHEMISTRY ORDERABLES Performing Organization Address [facility] de Phone Number [facility] [employer] [facility]# [id number] [address] [place] [address] * VITAMIN B12 AND FOLATE (04/22/2022 9:40 AM [facility]) Pathologist [facility] VITAMIN B12 444 232 - 1,245 pg/mL 04/22/2022 11:42 AM [facility] [employer] [facility] Comment:It has been reported that between 5 to 10% of patients with values between 200 and 400 pg/mL may experience neuropsychiatric and hematologic abnormalities due to occult B12 deficiency. Less than 1% of patients with values above 400 pg/mL will have symptoms. FOLATE, SERUM 6.2 >4.5 ng/mL 04/22/2022 11:42 AM [facility] Blood Venipuncture / Unknown 04/22/2022 9:40 AM ZIPPER SLIDE ATTACHER 04/22/2022 10:52 AM ZIPPER SLIDE ATTACHER Tung Hill DO CHEMISTRY ORDERABLES Performing Organization Address [facility] Co de Phone Number [facility]# [id number] [address] [place] [address] * TSH (04/22/2022 9:40 AM ZIPPER SLIDE ATTACHER) TSH 0.76 0.27 - 4.20 uIU/mL 04/22/2022 11:34 AM [facility] Blood Venipuncture / Unknown 04/22/2022 9:40 AM ZIPPER SLIDE ATTACHER 04/22/2022 10:52 AM ZIPPER SLIDE ATTACHER Tung Hill DO CHEMISTRY ORDERABLES Performing Organization Address [facility] de Phone Number [facility]# [id number] [address] [place] [address] * PTT (04/22/2022 9:40 AM ZIPPER SLIDE ATTACHER) PTT 28.3 24.4 - 36.4 seconds 04/22/2022 11:10 AM [facility] Comment: PTT Therapeutic Range: Heparin Level ? PTT (seconds) <0.10 units/mL ? <53 0.10 - 0.30 units/mL ? 53 - 67 0.30 - 0.70 units/mL* ?67 - 95* 0.70 - 1.00 units/mL ? 95 - 116 *corresponds to therapeutic range for unfractionated heparin Blood Venipuncture / Unknown 04/22/2022 9:40 AM ZIPPER SLIDE ATTACHER 04/22/2022 10:52 AM ZIPPER SLIDE ATTACHER Tung Hill DO HEMATOLOGY ORDERABLE S Performing Organization Address [facility]/ZIP Co de Phone Number [employer] [facility] - [facility]# [id number] [address] [facility] [place] [address] * PROTIME-INR (04/22/2022 9:40 AM ZIPPER SLIDE ATTACHER) PROTIME 13.9 12.7 - 15.1 Seconds 04/22/2022 11:10 AM ZIPPER SLIDE ATTACHER [employer] [facility] - [facility] INR 1.0 0.9 - 1.1 04/22/2022 11:10 AM ZIPPER SLIDE ATTACHER [employer] LABORATORY SERVICES [facility] Blood Venipuncture / Unknown 04/22/2022 9:40 AM ZIPPER SLIDE ATTACHER 04/22/2022 10:52 AM ZIPPER SLIDE ATTACHER Narrative [employer] [facility] - [facility] - 04/22/2022 11:10 AM ZIPPER SLIDE ATTACHER INR Therapeutic Range: Adult: ?? 2.0 - 3.0 for pulmonary embolism or prophylaxis against venous ?thrombosis or systemic embolization. 2.0 - 3.0 for patients with tissue heart valves. 2.5 - 3.5 for patients with mechanical heart valves or post NV. Pediatric ??(12 years and under): 1.5 - 3.0 Although the target range in children is not well established, ?INR values of 1.5 - 3.0 are recommended for most patients. ?Higher values have been used in children with prosthetic ?cardiac valves and hereditary clotting disorders. (<3 days) therapeutic ranges have not been established. Tung Hill DO HEMATOLOGY ORDERABLE S Performing Organization Address City/[facility]/ZIP Co de Phone Number [employer] LABORATORY SERVICES [facility]# [id number] [address] [facility] [place] [address] * (ABNORMAL) LIPID PANEL (04/22/2022 9:40 AM [facility]) CHOLESTEROL 291(H) <200 mg/dL 04/22/2022 11:29 AM [facility] TRIGLYCERIDE 112 <150 mg/dL 04/22/2022 11:29 AM [facility] [employer] [facility] HDL 36(L) 40 - 59 mg/dL 04/22/2022 11:29 AM [facility] [employer] [facility] LDL CALCULATED 233(H) <100 mg/dL 04/22/2022 11:29 AM [facility] [employer] [facility] NON-HDL CHOLESTEROL 255(H) <130 mg/dL 04/22/2022 11:29 AM [facility] [employer] [facility] Blood Venipuncture / Unknown 04/22/2022 9:40 AM ZIPPER SLIDE ATTACHER 04/22/2022 10:52 AM [facility] [employer] [facility] - 04/22/2022 11:29 AM [facility] TOTAL CHOLESTEROL ??mg/dL ??Desirable <200 ??Borderline high [...] Hill DO CHEMISTRY ORDERABLES Performing Organization Address [facility]/ZIP Co de Phone Number [facility] [employer] [facility] CLIA# [id number] [address] [place] [address] * IRON, TIBC, AND PERCENT SATURATION (04/22/2022 9:40 AM ZIPPER SLIDE ATTACHER) IRON 118 37 - 145 ug/dL 04/22/2022 11:29 AM ZIPPER SLIDE ATTACHER [employer] [facility] TIBC 279 250 - 450 ug/dL 04/22/2022 11:29 AM [facility] [employer] [facility] IRON % SATURATION 42 15 - 50 % 04/22/2022 11:29 AM [facility] [employer] [facility] TRANSFERRIN 220 200 - 360 mg/dL 04/22/2022 11:29 AM [facility] [employer] [facility] Blood Venipuncture / Unknown 04/22/2022 9:40 AM ZIPPER SLIDE ATTACHER 04/22/2022 10:52 AM ZIPPER SLIDE ATTACHER Tung Hill DO CHEMISTRY ORDERABLES Performing Organization Address [facility] Co de Phone Number [facility] [employer] [facility]# [id number] [address] [place] [address] * HEMOGLOBIN A1C (04/22/2022 9:40 AM ZIPPER SLIDE ATTACHER) HEMOGLOBIN A1C 5.3 <5.7 % 04/22/2022 11:15 AM ZIPPER SLIDE ATTACHER [employer] [facility] EST. AVG GLUCOSE, A1C 105 mg/dL 04/22/2022 11:15 AM [facility] [employer] [facility] Blood Venipuncture / Unknown 04/22/2022 9:40 AM ZIPPER SLIDE ATTACHER 04/22/2022 10:52 AM ZIPPER SLIDE ATTACHER Narrative [facility] - 04/22/2022 11:15 AM ZIPPER SLIDE ATTACHER HGB A1C INTERPRETATION NORMAL: ? <5.7% PRE-DIABETES: 5.7 - 6.4% DIABETES: ? 6.5% OR GREATER Tung Hill DO CHEMISTRY ORDERABLES [facility] [employer] [facility]# [id number] [address] [place] [address] * (ABNORMAL) FERRITIN (04/22/2022 9:40 AM ZIPPER SLIDE ATTACHER) FERRITIN 306.0(H) 13.0 - 150.0 ng/mL 04/22/2022 11:34 AM ZIPPER SLIDE ATTACHER [employer] [facility] SERVICES [facility] [facility] Blood Venipuncture / Unknown 04/22/2022 9:40 AM ZIPPER SLIDE ATTACHER 04/22/2022 10:52 AM ZIPPER SLIDE ATTACHER Tung Mathew Carson DAVIS CHEMISTRY ORDERABLES Performing Organization Address [facility] Co de Phone Number [facility] [employer] [facility]# [id number] [address] [place] [address] * (ABNORMAL) COMPREHENSIVE METABOLIC PANEL (04/22/2022 9:40 AM ZIPPER SLIDE ATTACHER) SODIUM 139 136 - 145 mmol/L 04/22/2022 11:29 AM [facility] - . [facility] POTASSIUM 3.9 3.5 - 5.0 mmol/L 04/22/2022 11:29 AM [facility] - . [facility] CHLORIDE 103 98 - 107 mmol/L 04/22/2022 11:29 AM ZIPPER SLIDE ATTACHER [employer] [facility] - [facility] CO2 26 22 - 29 mmol/L 04/22/2022 11:29 AM [facility] CALCIUM 9.8 8.6 - 10.2 mg/dL 04/22/2022 11:29 AM ZIPPER SLIDE ATTACHER [employer] [facility] - [facility] BUN 12 6 - 20 mg/dL 04/22/2022 11:29 AM [facility] - . [facility] CREATININE 0.85 0.51 - 0.95 mg/dL 04/22/2022 11:29 AM ZIPPER SLIDE ATTACHER [employer] [facility] - . [facility] GLUCOSE 93 74 - 99 mg/dL 04/22/2022 11:29 AM ZIPPER SLIDE ATTACHER [facility] TOTAL PROTEIN 7.5 6.7 - 8.6 g/dL 04/22/2022 11:29 AM [facility]. [facility] ALBUMIN 4.4 3.5 - 5.2 g/dL 04/22/2022 11:29 AM [facility] BILIRUBIN TOTAL 0.5 0.3 - 1.2 mg/dL 04/22/2022 11:29 AM [facility] ALKALINE PHOSPHATASE 84 35 - 104 U/L 04/22/2022 11:29 AM [facility]. [facility] AST 22 <33 U/L 04/22/2022 11:29 AM [facility] ALT 36(H) <34 U/L 04/22/2022 11:29 AM [facility]. [facility] GFR >60 >=60 mL/min/1.7 3 sq meter 04/22/2022 11:29 AM [facility] Comment:eGFR calculated with 2020 CKD-EPI equation. Vegetarian diet, extremely high or low muscle mass, and may affect results. Cystatin C with Glomerular Filtration Rate is a suitable alternative for these patients. ANION GAP 10 8 - 16 mmol/L 04/22/2022 11:29 AM [facility] Blood Venipuncture / Unknown 04/22/2022 9:40 AM ZIPPER SLIDE ATTACHER 04/22/2022 10:52 AM ZIPPER SLIDE ATTACHER Narrative [facility] - 04/22/2022 11:29 AM ZIPPER SLIDE ATTACHER Samples containing indocyanine green cause interferences on Total and/or Direct Bilirubin and must not be measured. Tung iHll DO CHEMISTRY ORDERABLES [facility]# [id number] [address] [facility] [place] [place] [place] [address] * EKG 12-LEAD (04/22/2022 9:35 AM ZIPPER SLIDE ATTACHER) 04/22/2022 9:35 AM ZIPPER SLIDE ATTACHER Narrative INTERFACE SYSTEM - 04/22/2022 4:55 PM ZIPPER SLIDE ATTACHER ? Stationary ECG Study ? [facility] ? Test Date: ?04/22/2022 9:35 AM Pat Name: ? LELA RILEY ? Department: ?? 46 ?Room: ? Gender: ? F ?Employee Adviser: ?? [email or web address] : ?1980 ? Requested By: TUNG HILL A Order Number: [id number] ? Reading MD: ?? Harman Brunrochelle ? Measurements Intervals ?[place] ? Rate: ? 61 ? P: ?47 GA: ? 174 ?QRS: ?8 QRSD: ? 79 ? T: ?29 QT: ? 438 ? QTc: ?442 ? Interpretive Statements ? Sinus rhythm Low voltage, precordial leads Borderline T abnormalities, anterior leads Electronically Signed On 04-22-2022 16:55:33 ZIPPER SLIDE ATTACHER by Harman Hancock Procedure Note Harman Hancock MD - 04/22/2022 Stationary ECG Study [facility] Test Date: 04/22/2022 9:35 AM Pat Name: LELA LIN Department: 46 Room: Gender: F Employee Adviser: arelis : 1980 Requested By: TUNG Mathew Order Number: [id number] Tri VAUGHN: Harman Hancock Measurements Intervals [place] Rate: 61 P: 47 GA: 174 QRS: 8 QRSD: 79 T: 29 QT: 438 QTc: 442 Interpretive Statements Sinus rhythm Low voltage, precordial leads Borderline T abnormalities, anterior leads Electronically Signed On 04-22-2022 16:55:33 ZIPPER SLIDE ATTACHER by Harman Hancock Tung [place] DO ECG ORDERABLES INTERFACE SYSTEM Refer to clinic/hospital department documented in this encounter Visit Diagnoses Diagnosis Encounter for blood typing- Primary Morbid obesity with BMI of 40.0-44.9, adult Morbid obesity with BMI of 40.0-44.9, adult documented in this encounter Care Teams Electrolysis Needle Operator Relationship Specialty [place] [address] [facility] [address] [place] [phone] PCP - General Internal Medicine 04/08/21 documented as of this encounter
--- OUTSIDE RECORDS SUMMARY | 2024-05-29 21:42 | XMS_ITS | Encounter Summary ---
Author Organization [facility] Address [address] [place] [address] Care Team Providers Care Compound Machine Operator Name Role Phone Jai Guadarrama MD Primary Care Provider +1- [phone] Encounter Details Date Type Department Care Team (Late st Contact Info) Description 06/09/2021 Orders Only [facility] Pre Procedure Viral Testing [address] [address] [place] [address] [facility] [address] [place] [address] Contact with and (suspected) exposure [...] CORONAVIRUS (COVID-19) PCR DETECTION (06/10/2021 8:10 AM ASSURANCE SENIOR MANAGER) COVID-19 PCR NOT DETECTED Not Detected 06/10/19 3:13 PM ASSURANCE SENIOR MANAGER [facility] PERFORMING LAB [facility] 06/10/2021 3:13 PM ASSURANCE SENIOR MANAGER [facility] Upper Respiratory ENTIRE NASOPHARYNX / Unknown Collection / Unknown 06/10/2021 8:10 AM ASSURANCE SENIOR MANAGER 06/10/2021 10:41 AM ASSURANCE SENIOR MANAGER Narrative [facility] - 06/10/2021 3:13 PM ASSURANCE SENIOR MANAGER This test has been authorized by the [...] 2019-Novel Coronavirus. Robert Pedersen MD MICROBIOLOGY - [facility] AL ORDERABLES [facility]# [id number] [address] [place] [address] documented in this encounter Visit Diagnoses Diagnosis Contact with and (suspected) exposure to covid-19- Primary documented in this encounter Additional Health Concerns Infection Onset Date Last Indicated Resolved Time R/O COVID-19 06/09/2021 06/10/2021 06/10/2021 3:13 PM ASSURANCE SENIOR MANAGER documented as of this encounter Care Teams Compound Machine Operator Relationship Specialty [place] [address] [facility] [address] [place] [phone] PCP - General Internal Medicine 04/08/21 documented as of this encounter
--- OUTSIDE RECORDS SUMMARY | 2024-05-29 21:42 | XMS_ITS | Encounter Summary ---
Author Organization [facility] Address [address] Kaplan: Epic Prelude ADT [place] [address] Care Team Providers Care Nfl Player Name Role Phone Unavailable Primary Care Provider [...]
--- OUTSIDE RECORDS SUMMARY | 2024-05-29 21:42 | XMS_ITS | Encounter Summary ---
Author Organization [facility] Address [address] Kaplan: Epic Prelude [place] [address] Care Team Providers Care Team Assistant Name Role Phone Jai Guadarrama MD Primary Care Provider +1- [phone] Encounter Details Date Type Department Care Team [...] on filedocumented in this encounter Care Teams Team Assistant Relationship Specialty [place] [address] [place] [address] PCP - General Internal Medicine 04/08/21 documented as of this encounter
--- OUTSIDE RECORDS SUMMARY | 2024-05-29 21:42 | XMS_ITS | Encounter Summary ---
Author Organization [facility] Address [address] [place] [address] Care Team Providers Care Outer Diameter Grinder Tool Name Role Phone Jai Guadarrama MD Primary Care Provider +1- [phone] Encounter Details Date Type Department Care Team (Late st Contact Info) Description 09/10/2021 Abstract [facility] Surgical Spec [place] [address] [place] [address] Ninoska Todd, RENE Social History Tobacco Use Types Packs/Day Years [...] on filedocumented in this encounter Care Teams Outer Diameter Grinder Tool Relationship Specialty [place] [address] [facility] [address] [place] [phone] PCP - General Internal Medicine 04/08/21 documented as of this encounter
--- OUTSIDE RECORDS SUMMARY | 2024-05-29 21:42 | XMS_ITS | Encounter Summary ---
Author Organization [facility] Address [address] [place] [address] Care Team Providers Care Commercial Kitchen Service Technician Name Role Phone Jai Guadarrama MD Primary Care Provider +- [phone] Reason for Visit * Auth/Cert Specialty Diagnoses / Procedures Referred By Contact Referred To Contact Perioperative Diagnoses Gastroesophageal reflux disease without esophagitis Procedures PA ESOPHAGOGASTRODUODENOSCOPY TRANSORAL DIAGNOSTIC ESOPHAGOGASTRODUODENOSCOPY [facility] [address] [place] [address] Referral ID Status Reason Start Date Expiration Date Visits Re quested Visits Authorized [id number] 1 1 Encounter Details Date Type Department Care Team (Latest Contact Info) Description 10/11/2021 1:30 PM CDT - 10/11/2021 2:00 PM CDT Surgery [facility] [place] [address] [place] [address] Jerrell Byrd, DO [address] [phone] ESOPHAGOGASTRODUODENOSCOPY Surgery Details Date/Time Status Location OR [...] not included. Patient: Renata Lei : 1980 [facility] [address], [address] [place] [address] HISTORY & PHYSICAL 10/11/2021 HISTORY OF PRESENT [...] answered. Elias Byrd DO 10/11/2021, 9:04 AM [facility] documented in this encounter Procedure Notes * Jerrell Byrd DO - 10/11/2021 9:26 AM CDTAssociated Order(s): UPPER ENDOSCOPY REPORT [facility] Endoscopy Patient Name: Renata Lie Procedure Date: 10/11/2021 Date of : 1980 [...] of Addenda: [address] ; [place] [address] documented in this encounter OR Notes * Jasmin-OP - Za Orozco RN - 10/11/2021 9:01 AM CDT Patient/Family discussion included an explanation that: Standard practice for endoscopists at [facility] includes use of an oral bite block to facilitate upper endoscopy and to prevent you from biting onto the scope or yourself during the procedure.This bite block is placed by a [facility] procedure room nurse/solar fabrication technician prior to the procedure. Pressure that [...] same day or prompt dental evaluation by [facility] Dental Medicine. * Jasmin-OP - Za Orozco RN - 10/11/2021 9:01 AM CDT Routine Pre-Anesthesia Protocol for GI Lab Procedures [facility] Approved by: [facility] - Medical Executive Committee Approval Date: 08/01/2021 ORDERS ARE ENTERED ???PER PROTOCOL?? Enter the protocol in the patient???s electronic health record using [employer]: .anestprotocolgilab Nursing Orders: Monitoring ??? Obtain and record vital signs on admission to [facility] ??? Continuous vital signs (Non-invasive blood pressure, [...] appropriate, may confirm POC with: Nursing Only [id number] (this lab can be obtained at no [...] unable to obtain urine, may obtain serum [id number]) All patients with potential for childbearing (menarche [...] Procedure Name Priority Date/Time Associated Diagnosis Comments PA ESOPHAGOGASTRODUODENOSCOP Y TRANSORAL DIAGNOSTIC 10/11/2021 1:30 PM [...] A, DO - 10/11/2021 9:26 AM CDT [facility] Endoscopy Patient Name: Renata [...] Addenda: 0 [address]; [place] [address] Jerrell Byrd DO GI PROCEDURE ORDERAB LES * HELICOBACTER PYLORI RAPID UREASE TEST (10/11/2021 9:25 AM CDT) H. PYLORI RAPID UREASE TEST Negative Negative 10/12/2021 1:23 PM CDT [facility] Tissue ENTIRE STOMACH / Unknown Collection / Unknown 10/11/2021 9:25 AM CDT 10/11/2021 10:32 AM CDT Comment:Gastritis, r/o h.pyl andra Jerrell Byrd DO MICROBIOLOGY - GENER AL ORDERABLES Performing Organization Address [facility]/ZIP Co de Phone Number [facility] CLIA# [id number] [address] [place] [address] * POC , URINE (10/11/2021 9:02 AM CDT) HCG QUAL URINE Negative Negative 10/11/2021 9:02 AM CDT [facility] Urine 10/11/2021 9:02 AM CDT 10/11/2021 9:11 AM CDT Jerrell Byrd DO POINT OF CARE TESTIN G Performing Organization Address City/[facility]/ZIP Co de Phone Number [facility] [employer] [facility] CLIA# [id number] [address] [place] [address] documented in this encounter Visit Diagnoses Diagnosis [...] Hurtado) documented in this encounter Care Teams Commercial Kitchen Service Technician Relationship Specialty [place] [address] [facility] [address] [place] [phone] PCP - General Internal Medicine 04/08/21 documented as of this encounter
--- OUTSIDE RECORDS SUMMARY | 2024-05-29 21:42 | XMS_ITS | Encounter Summary ---
Author Organization [facility] Address [address] [place] [address] Care Team Providers Care Eye Dropper Assembler Name Role Phone Jai Guadarrama MD Primary Care Provider +1- [phone] Encounter Details Date Type Department Care Team (Late st Contact Info) Description 09/11/2021 Abstract [facility] Surgical Spec [place] [address] [place] [address] Gris Brown RN Social History [...] on filedocumented in this encounter Care Teams Eye Dropper Assembler Relationship Specialty [place] [address] [place] [phone] PCP - General Internal Medicine 04/08/21 documented as of this encounter
--- OUTSIDE RECORDS SUMMARY | 2024-05-29 21:42 | XMS_ITS | Encounter Summary ---
Author Organization [facility] Address [address] [place]: Epic Prelude [place]T [place] [address] Care Team Providers Care Screen Room Operator Name Role Phone Jai Guadarrama MD Primary Care Provider +1- [phone] Encounter Details Date Type Department Care Team [...] on filedocumented in this encounter Care Teams Screen Room Operator Relationship Specialty [place] [address] [place] [phone] PCP - General Internal Medicine 04/08/21 documented as of this encounter
--- OUTSIDE RECORDS SUMMARY | 2024-05-29 21:42 | XMS_ITS | Encounter Summary ---
Author Organization [facility] Address [address] Kaplan: Epic Prelude [place] [address] Care Team Providers Care Hotel Maid Name Role Phone Jai Guadarrama MD Primary Care Provider +1- [phone] Encounter Details Date Type Department Care Team [...] on filedocumented in this encounter Care Teams Hotel Maid Relationship Specialty [place] [address] [place] [phone] PCP - General Internal Medicine 04/08/21 documented as of this encounter
--- OUTSIDE RECORDS SUMMARY | 2024-05-29 21:42 | XMS_ITS | Encounter Summary ---
Author Organization [facility] Address [address] [place] [address] Care Team Providers Care Packing Machine Pilot Can Router Name Role Phone Jai Guadarrama MD Primary Care Provider +- [phone] Reason for Referral * Radiology Services (Routine) - Closed Specialty Diagnoses / Procedures Referred By Contac t Referred To Contact Diagnoses Morbid obesity with BMI of 40.0-44.9, adult Hypercholesterolemia Gastric reflux Migraine without status migrainosus, not intractable, unspecified migraine type Anxiety Family history of diabetes mellitus in father Procedures XR UPR Abelardo Malhotra PA [address] [place] [address] Referral ID Status Reason Start Date Expiration Date V isits Requested Visits Authorized [id number] Closed [facility] CTS 10/02/2021 10/31/2021 1 1 Reason for Visit * Radiology Services (Routine) - Closed Specialty Diagnoses / Procedures Referred By Contac t Referred To Contact Diagnoses Morbid obesity with BMI of 40.0-44.9, adult Hypercholesterolemia Gastric reflux Migraine without status migrainosus, not intractable, unspecified migraine type Anxiety Family history of diabetes mellitus in father Procedures XR UPR Abelardo Malhotra PA [address] [place] [address] Referral ID Status Reason Start Date Expiration Date V isits Requested Visits Authorized [id number] Closed [facility] CTS 10/02/2021 10/31/2021 1 1 Encounter Details Date Type Department Care Team (Latest Contact Info) Description 10/08/2021 7:27 AM CDT - 10/08/2021 11:59 PM CDT Hospital Encounter [facility] [address] [place] [address] Abelardo Barrios PA [address] [place] [address] Discharge Disposition: [...] Gutierrez RT - 10/08/2021 7:45 AM CDT [facility] Radiology Medication Protocol [facility] Approved by: [facility] - Medical Executive Committee Approval Date: 08/01/2021 ORDERS ARE ENTERED ???PER PROTOCOL?? Enter the protocol in the patient's electronic health record using smartphrase: .radiologymedicationprotocol Communication Orders: o If required to complete procedure, veterinary surgery technologist or nurse may place indwelling singletary [...] Barium Sulfate (Liquid Polibar Plus) 96% (w/w) 559k=[id number] mixed with 1500mL of water, radiologist to [...] ?? Small hiatal hernia. DICTATION LOCATION: Location [address] [place] [address] 10/08/2021 8:43 AM CDT EXAMINATION: UPPER GI [...] IMPRESSION: Small hiatal hernia. DICTATION LOCATION: Location [address] [place] [address] Abelardo BRAVO DIAGNOSTIC IMAGI NG ORDERABLES documented [...] Packet documented in this encounter Care Teams Packing Machine Pilot Can Router Relationship Specialty [place] [address] [facility] [address] [phone] PCP - General Internal Medicine 04/08/21 documented as of this encounter
--- OUTSIDE RECORDS SUMMARY | 2024-05-29 21:42 | XMS_ITS | Encounter Summary ---
Author Organization [facility] Address [address] [place] [address] Care Team Providers Care Instructional Specialist Name Role Phone Jai Guadarrama MD Primary Care Provider +1- [phone] Encounter Details Date Type Department Care Team (Late st Contact Info) Description 05/06/2021 Orders Only [facility] Internal Medicine Angelica Jimenez [address] [place] [address] [place] [address] [place] [address] Need for malaria prophylaxis (Primary Dx) [...] COVID-19? Unable to assess 04/08/2021 3:18 PM STATION JAILER documented as of this encounter Progress Notes * Jai Guadarrama MD - 05/06/2021 9:34 AM CST Traveling to [place] for 10 days - requesting Malarone for malaria prophylaxis Prescription for Malarone 250/100 daily sent to pharmacy [facility] documented in this encounter Plan of Treatment Not on file documented as of this encounter Visit Diagnoses Diagnosis Need for malaria prophylaxis- Primary documented in this encounter Care Teams Instructional Specialist Relationship Specialty Start [place] [address] [facility] [address] [place] [phone] PCP - General Internal Medicine 04/08/21 documented as of this encounter
--- OUTSIDE RECORDS SUMMARY | 2024-05-29 21:42 | XMS_ITS | Encounter Summary ---
Author Organization [facility] Address [address] Kaplan: Epic Prelude [place]T [place] [address] Care Team Providers Care Stud Sheep Farmer Name Role Phone Jai Guadarrama MD Primary Care Provider +1- [phone] Encounter Details Date Type Department Care Team [...] on filedocumented in this encounter Care Teams Stud Sheep Farmer Relationship Specialty [place] [address] [place] [phone] PCP - General Internal Medicine 04/08/21 documented as of this encounter
--- OUTSIDE RECORDS SUMMARY | 2024-05-29 21:42 | XMS_ITS | Encounter Summary ---
Author Organization [facility] Address [address] [place] [address] Care Team Providers Care Plumber Name Role Phone Jai Guadarrama MD Primary Care Provider +- [phone] Reason for Referral * Eval and Treat (Routine) - Closed Specialty Diagnoses / Procedures Referred By Contomega t Referred To Contact Surgery / General Surgery Diagnoses Morbid obesity with body mass index (BMI) of 40.0 [place] [address] [place] [address] Jerrell Byrd, DO [address] [facility] [address] [place] [address] Referral ID Status Reason Start Date Expiration Date Visits Re quested Visits Authorized [id number] Closed 04/08/2021 04/08/2022 1 1 PER Reason for Visit * Reason Comments Establish Care Needs refill on topa max and would like to discuss weight loss. Encounter Details Date Type Department Care Team (Late st Contact Info) Description 04/08/2021 3:30 PM SWAMPER Video Visit [facility] Internal Medicine Angelica Jimenez [address] [place] [address] [place] [address] [place] [address] Morbid [...] COVID-19? Unable to assess 04/08/2021 3:18 PM SWAMPER documented as of this encounter Last Filed Vital Signs Vital Sign Reading Time Taken Comments Blood Pressure - - Pulse - - Temperature - - Respiratory Rate - - Oxygen Saturation - - Inhaled Oxygen Concentration - - Weight 117.9 kg (260 lb) 04/08/2021 3:24 PM SWAMPER Height 162.6 cm (5' 4 ) 04/08/2021 3:24 PM SWAMPER Body Mass Index 44.63 04/08/2021 3:24 PM SWAMPER documented in this encounter Progress Notes * [...] file Immunization History Administered Date(s) Administered ??? (Onovative) (12 YR UP) COVID-19 VACCINE - EMERGENCY USE AUTHORIZATION, MRNA,[id number](PF) 30 MCG/0.3 ML IM SUSP 07/27/2020, 08/16/2020 [...] index is 44.63 kg/m??. See above discussion PER documented in this encounter Plan of Treatment [...] VITAMIN B12 286 200 - 1100 pg/mL [facility] Comment: Please Note: Although the reference range for vitamin B12 is 200-1100 pg/mL, it has been reported that between 5 and 10% of patients with values between 200 and 400 pg/mL may experience neuropsychiatric and hematologic abnormalities due to occult B12 deficiency; less than 1% of patients with values above 400 pg/mL will have symptoms. FASTING:YES FASTING: YES Test Performed at: [facility] [address] [place] ??[address] Reece Ewing D.O., MPH Blood 10/08/2021 7:12 AM CDT 10/08/2021 7:13 AM CDT Jai Guadarrama MD CHEMISTRY ORDERABL ES [facility] [phone] * TSH (10/08/2021 7:12 AM CDT) Pathologist [facility] TSH 1.42 mIU/L [facility] Comment: ?Reference Range ?> or = 20 Years ??0.40-4.50 ? Ranges ?First trimester ?0.26-2.66 ?Second trimester ?? 0.55-2.73 ?Third trimester ?0.43-2.91 Test Performed at: [facility] ??[address] Reece Ewing D.O., MPH Blood 10/08/2021 7:12 AM CDT 10/08/2021 7:13 AM CDT Jai Guadarrama MD CHEMISTRY ORDERABL ES Performing Organization Address [facility] de Phone Number [facility] [phone] * (ABNORMAL) LIPID PANEL (10/08/2021 7:12 AM CDT) Pathologist [facility] CHOLESTEROL 253(H) <200 mg/dL [facility] HDL 34(L) > OR = 50 mg/dL [facility] TRIGLYCERIDE 137 <150 mg/dL [facility] LDL CALCULATED 192(H) mg/dL (calc) [facility] Comment: LDL-C levels > or = 190 mg/dL may indicate familial hypercholesterolemia (FH). Clinical assessment and measurement of blood lipid levels should be considered for all first degree relatives of patients with an FH diagnosis. For questions about testing for familial hypercholesterolemia, please call [employer] Client Services at [phone].GENE.INFO. Makenna T, et al. J National Lipid [...] LDL-C. Nomi SOLOMON et al. CHUCKY. 2013;310(19): 7807-1283 (http://education.Academize/faq/FOA175) CHOL/HDL RATIO 7.4(H) <5.0 (calc) [facility] TOTAL NON-HDL CHOL(LDL+VLDL) 219(H) <130 mg/dL (calc) [facility] Comment: For patients with diabetes plus 1 major ASCVD risk factor, treating to a non-HDL-C goal of <100 mg/dL (LDL-C of <70 mg/dL) is considered a therapeutic option. Test Performed at: [facility] [address] [place], [place] ??[address] [facility] Blood 10/08/2021 7:12 AM CDT 10/08/2021 7:13 AM CDT Jai Guadarrama MD CHEMISTRY ORDERABL ES [facility] [phone] * COMPREHENSIVE METABOLIC PANEL (10/08/2021 7:12 AM CDT) Pathologist [facility] GLUCOSE 90 65 - 99 mg/dL [facility] Comment: ? Fasting reference interval BUN 16 7 - 25 mg/dL [facility] CREATININE 0.80 0.50 - 1.10 mg/dL [facility] GFR 92 > OR = 60 mL/min/1 .73m2 [facility] GFR, 107 > OR = 60 mL/min/1 .73m2 [facility] BUN/CREAT RATIO NOT APPLICABLE 6 - 22 (calc) [facility] SODIUM 137 135 - 146 mmol/L [facility] POTASSIUM 4.5 3.5 - 5.3 mmol/L [facility] CHLORIDE 104 98 - 110 mmol/L [facility] CO2 25 20 - 32 mmol/L [facility] CALCIUM 9.4 8.6 - 10.2 mg/dL [facility] TOTAL PROTEIN 6.8 6.1 - 8.1 g/dL [facility] ALBUMIN 4.0 3.6 - 5.1 g/dL [facility] GLOBULIN 2.8 1.9 - 3.7 g/dL (calc) [facility] ALBUMIN/GLOBULIN RATIO 1.4 1.0 - 2.5 (calc) [facility] BILIRUBIN TOTAL 0.3 0.2 - 1.2 mg/dL [facility] ALKALINE PHOSPHATASE 80 31 - 125 U/L [facility] AST 15 10 - 30 U/L [facility] ALT 25 6 - 29 U/L [facility] Comment: Test Performed at: [facility] [address] [place], [place] ??[address] Desire[facility] Thomas Vo Blood 10/08/2021 7:12 AM CDT 10/08/2021 7:13 AM CDT Jai Guadarrama MD CHEMISTRY ORDERABL ES [facility] [phone] * (ABNORMAL) CBC WITH DIFFERENTIAL (10/08/2021 7:12 AM CDT) WBC 7.9 3.8 - 10.8 Thousand/ uL [facility] RBC 4.86 3.80 - 5.10 Million/u L [facility] HEMOGLOBIN 13.8 11.7 - 15.5 g/dL [facility] HEMATOCRIT 42.3 35.0 - 45.0 % [facility] MCV 87.0 80.0 - 100.0 fL [facility] MCH 28.4 27.0 - 33.0 pg [facility] MCHC 32.6 32.0 - 36.0 g/dL [facility] RDW 12.3 11.0 - 15.0 % [facility] PLATELETS 280 140 - 400 Thousand/ uL [facility] MPV 11.6 7.5 - 12.5 fL [facility] NEUTROPHIL ABSOLUTE 3,966 1,500 - 7,800 cells/uL [facility] LYMPHOCYTE ABSOLUTE 2,781 850 - 3,900 cells/uL [facility] MONOCYTE ABSOLUTE 561 200 - 950 cells/uL [facility] EOSINOPHIL ABSOLUTE 545(H) 15 - 500 cells/uL [facility] BASOPHILS ABSOLUTE 47 0 - 200 cells/uL [facility] NEUTROPHIL 50.2 % [facility] LYMPHOCYTES 35.2 % [facility] MONOCYTE 7.1 % [facility] EOSINOPHILS 6.9 % [facility] BASOPHILS 0.6 % [facility] Comment: Test Performed at: [facility] [address] [place] ??[phone] DesireMario Figueroa Blood 10/08/2021 7:12 AM CDT 10/08/2021 7:13 AM CDT Jai Guadarrama MD HEMATOLOGY ORDERAB LES [facility] [phone] documented in this encounter Visit Diagnoses Diagnosis [...] mammogram documented in this encounter Care Teams Plumber Relationship Specialty Start [place] [address] [facility] [address] [place] [phone] PCP - General Internal Medicine 04/08/21 documented as of this encounter
--- OUTSIDE RECORDS SUMMARY | 2024-05-29 21:42 | XMS_ITS | Encounter Summary ---
Author Organization [facility] Address [address] [place] [address] Care Team Providers Care Billing Representative Name Role Phone Jai Guadarrama MD Primary Care Provider +1- [phone] Reason for Visit * Auth/Cert Specialty Diagnoses / Procedures Referred By Contact Referred To Contact Perioperative Diagnoses Gastroesophageal reflux disease without esophagitis Procedures MI ESOPHAGOGASTRODUODENOSCOPY TRANSORAL DIAGNOSTIC ESOPHAGOGASTRODUODENOSCOPY [facility] [address] [place] [address] Referral ID Status Reason Start Date Expiration Date Visits Re quested Visits Authorized [id number] 1 1 Encounter Details Date Type Department Care Team (Latest Contact Info) Description 10/11/2021 8:43 AM CDT - 10/11/2021 9:58 AM CDT Hospital Encounter [facility] GI Lab S Daljit Kumar [address] [place] [address] Jerrell Byrd, DO [address] [address] Gastroesophageal reflux disease without esophagitis [...] not included. Patient: Renata Lei : 1980 [facility] [address] [facility] [place] [address] HISTORY & PHYSICAL 10/11/2021 HISTORY OF PRESENT [...] answered. Elias Byrd DO 10/11/2021, 9:04 AM [facility] documented in this encounter Procedure Notes * Jerrell Byrd DO - 10/11/2021 9:26 AM CDTAssociated Order(s): UPPER ENDOSCOPY REPORT [facility] Endoscopy Patient Name: Renata [...] AM Number of Addenda: 0 [address] [facility] [place] [address] documented in this encounter OR Notes * Jasmin-OP - Za Orozco RN - 10/11/2021 9:01 AM CDT Patient/Family discussion included an explanation that: Standard practice for endoscopists at [facility] includes use of an oral bite block to facilitate upper endoscopy and to prevent you from biting onto the scope or yourself during the procedure.This bite block is placed by a [facility] procedure room nurse/evidence technician prior to the procedure. Pressure that [...] same day or prompt dental evaluation by [facility] Dental Medicine. * Jasmin-OP - Za Orozco RN - 10/11/2021 9:01 AM CDT Routine Pre-Anesthesia Protocol for GI Lab Procedures [facility] Approved by: [facility] - Medical Executive Committee Approval Date: 08/01/2021 ORDERS ARE ENTERED ???PER PROTOCOL?? Enter the protocol in the patient???s electronic health record using [employer]: .anestprotocolgilab Nursing Orders: Monitoring ??? Obtain and record vital signs on admission to [facility] ??? Continuous vital signs (Non-invasive [...] appropriate, may confirm POC with: Nursing Only [id number] (this lab can be obtained at no [...] unable to obtain urine, may obtain serum [id number]) All patients with potential for childbearing (menarche [...] Procedure Name Priority Date/Time Associated Diagnosis Comments MI ESOPHAGOGASTRODUODENOSCOP Y TRANSORAL DIAGNOSTIC 10/11/2021 1:30 PM [...] Byrd DO - 10/11/2021 9:26 AM CDT [facility] Endoscopy Patient Name: Renata [...] of Addenda: [address]; [place] [address] Jerrell Byrd DO GI PROCEDURE ORDERAB LES * HELICOBACTER PYLORI RAPID UREASE TEST (10/11/2021 9:25 AM CDT) H. PYLORI RAPID UREASE TEST Negative Negative 10/12/2021 1:23 PM CDT [facility] Tissue ENTIRE STOMACH / Unknown Collection / Unknown 10/11/2021 9:25 AM CDT 10/11/2021 10:32 AM CDT Comment:Gastritis, r/o h.pyl andra Jerrell Byrd DO MICROBIOLOGY - GENER AL ORDERABLES Performing Organization Address [facility]/ZIP Co de Phone Number [facility]# [id number] [address] [place] [address] * POC , URINE (10/11/2021 9:02 AM CDT) Pathologist [facility] HCG QUAL URINE Negative Negative 10/11/2021 9:02 AM CDT [facility] Urine 10/11/2021 9:02 AM CDT 10/11/2021 9:11 AM CDT Jerrell Byrd DO POINT OF CARE TESTIN G Performing Organization Address [facility] Co de Phone Number [facility]# [id number] [address] [place] [address] documented in this encounter Visit Diagnoses Diagnosis [...] Pre-Procedure 0909 (New Bag - Prov ider: aZ Orozco RN)0915 (Continue from Pre-Op - Provider: MIKE Hurtado)0931 (Fluid Volume - Provider: MIKE Hurtado) documented in this encounter Care Teams Billing Representative Relationship Specialty [place] [address] [facility] [address] [place] [phone] PCP - General Internal Medicine 04/08/21 documented as of this encounter
--- OUTSIDE RECORDS SUMMARY | 2024-05-29 21:42 | XMS_ITS | Encounter Summary ---
Author Organization [facility] Address [address] Kaplan: Epic Prelude ADT [place] [address] Care Team Providers Care Other Sales Support Worker Name Role Phone Unavailable Primary Care Provider [...]
--- OUTSIDE RECORDS SUMMARY | 2024-05-29 21:42 | XMS_ITS | Encounter Summary ---
Author Organization [facility] Address [address] [place] [address] Care Team Providers Care Public Health Technologist Name Role Phone Jai Guadarrama MD Primary Care Provider +- [phone] Reason for Referral * Radiology Services (Routine) - Closed Specialty Diagnoses / Procedures Referred By Rigoberto french Referred To Contact Diagnoses Visit for screening mammogram Procedures MAMMO SCRN BILAT 3D MAGALIE W OR WO CAD CHG SCREENING MAMMOGRAPHY BI 2-VIEW BREAST INC CAD CHG SCREENING DIGITAL BREAST [place] [address] [place] [address] Referral ID Status Reason Start Date Expiration Date Visits Re quested Visits Authorized [id number] Closed 10/23/2021 11/23/2022 1 1 * Radiology Services (Routine) - Closed Specialty Diagnoses / Procedures Referred By Rigoberto french Referred To Contact Diagnoses Visit for screening mammogram Procedures MAMMO SCRN BILAT 3D MAGALIE W OR WO CAD CHG SCREENING MAMMOGRAPHY BI 2-VIEW BREAST INC CAD CHG SCREENING DIGITAL BREAST [place] [address] [place] [address] Referral ID Status Reason Start Date Expiration Date Visits Re quested Visits Authorized [id number] Closed 10/23/2021 11/23/2022 1 1 Reason for Visit * Radiology Services (Routine) - Closed Specialty Diagnoses / Procedures Referred By Rigoberto french Referred To Contact Diagnoses Visit for screening mammogram Procedures MAMMO SCRN BILAT 3D MAGALIE W OR WO CAD CHG SCREENING MAMMOGRAPHY BI 2-VIEW BREAST INC CAD CHG SCREENING DIGITAL BREAST [place] [address] [address] [place] [address] Referral ID Status Reason Start Date Expiration Date Visits Re quested Visits Authorized [id number] Closed 10/23/2021 11/23/2022 1 1 Encounter Details Date Type Department Care Team (Latest Contact Info) Description 10/30/2021 7:13 AM CDT - 10/30/2021 11:59 PM CDT Hospital Encounter [facility] [address] [place] [address] [place] [address] [place] [address] Discharge Disposition: Home or [...] CAD DATE: 10/30/2021 7:25 AM DICTATION LOCATION: [facility] HISTORY: Routine yearly screening exam. TECHNIQUE: [...] CAD DATE: 10/30/2021 7:25 AM DICTATION LOCATION: [facility] HISTORY: Routine yearly screening exam. TECHNIQUE: [...] mammogram documented in this encounter Care Teams Public Health Technologist Relationship Specialty [place] [address] [facility] [address] [place] [phone] PCP - General Internal Medicine 04/08/21 documented as of this encounter
--- OUTSIDE RECORDS SUMMARY | 2024-05-29 21:42 | XMS_ITS | Encounter Summary ---
Author Organization [facility] Address [address] [place] [address] Care Team Providers Care Inspector Bicycle Name Role Phone Jai Guadarrama MD Primary Care Provider +1- [phone] Reason for Referral * Radiology Services (Routine) - Closed Specialty Diagnoses / Procedures Referred By Contac t Referred To Contact Diagnoses Morbid obesity with BMI of 40.0-44.9, adult Hypercholesterolemia Gastric reflux Migraine without status migrainosus, not intractable, unspecified migraine type Anxiety Family history of diabetes mellitus in father Procedures XR UPR GI Abelardo Barrios [facility] [address] [place] [address] Referral ID Status Reason Start Date Expiration Date V isits Requested Visits Authorized [id number] Closed [facility] CTS 10/02/2021 10/31/2021 1 1 Reason for Visit * Reason Comments Establish Care * Eval and Treat (Routine) - Closed Specialty Diagnoses / Procedures Referred By Contac t Referred To Contact Surgery / General Surgery Diagnoses Morbid obesity with body mass index (BMI) of 40.0 [place] [address] [facility] [address] [place] [address] Jerrell Byrd DO [address] [facility] [address] [place] [address] Referral ID Status Reason Start Date Expiration Date Visits Re quested Visits Authorized [id number] Closed 04/08/2021 04/08/2022 1 1 Encounter Details Date Type Department Care Team (Late st Contact Info) Description 09/11/2021 10:30 AM CDT Office Visit [facility] Surgical [facility] [place] [address] [facility] [address] [place] [address] Jerrell Byrd DO [address] [place] [address] Morbid obesity with BMI of 40.0-44.9, [...] from the original note were not included. [facility] [address] [place] [address] BARIATRIC HISTORY & PHYSICAL Patient: Renata Lei [...] hiatal hernia. DICTATION LOCATION: Location 1 - [facility] Narrative 10/08/2021 8:43 AM CDT EXAMINATION: UPPER [...] Small hiatal hernia. DICTATION LOCATION: Location - [facility] Abelardo BRAVO DIAGNOSTIC IMAGI NG ORDERABLES documented [...] father documented in this encounter Care Teams Inspector Bicycle Relationship Specialty Start [place] [address] [facility] [address] [place] [phone] PCP - General Internal Medicine 04/08/21 documented as of this encounter
--- OUTSIDE RECORDS SUMMARY | 2024-05-29 21:42 | XMS_ITS | Encounter Summary ---
Author Organization [facility] Address [address] [place] [address] Care Team Providers Care Nanotechnology Engineering Technologist Name Role Phone Jai Guadarrama MD Primary Care Provider +1- [phone] Reason for Visit * Reason Comments Physical Encounter Details Date Type Department Care Team (Late st Contact Info) Description 07/23/2021 3:00 PM ACADEMIC COORDINATOR Office Visit [facility] Internal Medicine Angelica Jimenez [address] [place] [address] [place] [address] [place] [address] Encounter for routine adult health examination [...] COVID-19? No / Unsure 07/23/2021 2:37 PM ACADEMIC COORDINATOR documented as of this encounter Last Filed Vital Signs Vital Sign Reading Time Taken Comments Blood Pressure 122/80 07/23/2021 2:45 PM ACADEMIC COORDINATOR Pulse 100 07/23/2021 2:45 PM ACADEMIC COORDINATOR Temperature 36.6 ??C (97.8 ??F) 07/23/2021 2:45 PM CS T Respiratory Rate 16 07/23/2021 2:45 PM ACADEMIC COORDINATOR Oxygen Saturation 98% 07/23/2021 2:45 PM ACADEMIC COORDINATOR Inhaled Oxygen Concentration - - Weight 119.7 kg (264 lb) 07/23/2021 2:45 PM ACADEMIC COORDINATOR Height 162.6 cm (5' 4 ) 07/23/2021 2:45 PM ACADEMIC COORDINATOR Body Mass Index 45.32 07/23/2021 2:45 PM ACADEMIC COORDINATOR documented in this encounter Progress Notes * [...] prn alprazolam. ??? Last colonoscopy: 2018 at [facility] for rectal bleeding - negative ??? Last mammogram: ordered on 04/08/2021 - pending ??? Last Dexa bone density: n/a ??? Covid-19 vaccination: 07/27/2020, 08/16/2020 ([place]) Past Medical History: Diagnosis Date ??? Anxiety ??? Migraine headache ??? Morbid obesity No past surgical history on file. No family history on file. Social History Tobacco Use ??? Smoking status: Never Smoker ??? Smokeless tobacco: Never Used Substance Use Topics ??? Alcohol use: Yes Comment: occas Immunization History Administered Date(s) Administered ??? (DermApproved) (12 YR UP) COVID-19 VACCINE - EMERGENCY USE AUTHORIZATION, MRNA,[id number](PF) 30 MCG/0.3 ML IM SUSP 07/27/2020, 08/16/2020 [...] 07/23/2022) for annual physical or as needed. EMIC COORDINATOR documented in this encounter Plan of Treatment [...] higher documented in this encounter Care Teams Nanotechnology Engineering Technologist Relationship Specialty Start [place] [address] [facility] [address] [place] [phone] PCP - General Internal Medicine 04/08/21 documented as of this encounter
--- OUTSIDE RECORDS SUMMARY | 2024-05-29 21:42 | XMS_ITS | Encounter Summary ---
Author Organization [facility] Address [address] Kaplan: Epic Prelude ADT [place] [address] Care Team Providers Care News Assignment Editor Name Role Phone Jai Guadarrama MD Primary Care Provider +1- [phone] Encounter Details Date Type Department Care Team [...] COVID-19? Unable to assess 04/08/2021 3:18 PM SCIENTIFIC PUBLICATIONS EDITOR documented as of this encounter Plan of Treatment Not on file documented as of this encounter Visit Diagnoses Not on filedocumented in this encounter Care Teams News Assignment Editor Relationship Specialty Start [place] [address] [place] [address] PCP - General Internal Medicine 04/08/21 documented as of this encounter
--- OUTSIDE RECORDS SUMMARY | 2024-05-29 21:42 | XMS_ITS | Encounter Summary ---
Author Organization [facility] Address [address] [place] [address] Care Team Providers Care Company Controller Name Role Phone Jai Guadarrama MD Primary Care Provider +1- [phone] Reason for Visit * Auth/Cert Specialty Diagnoses / Procedures Referred By Contact Referred To Contact Perioperative Diagnoses Gastroesophageal reflux disease without esophagitis Procedures TX ESOPHAGOGASTRODUODENOSCOPY TRANSORAL DIAGNOSTIC ESOPHAGOGASTRODUODENOSCOPY [facility] Gi Lab [address] [place] [address] Referral ID Status Reason Start Date Expiration Date Visits Re quested Visits Authorized [id number] 1 1 Encounter Details Date Type Department Care Team (Late st Contact Info) Description 10/11/2021 9:15 AM CDT Anesthesia Event [facility] GI Lab S [facility] [address] [place] [address] Catalino Spencer MD [address] [place] [address] Anesthesia Record Procedure Summary Procedure [...] breathing spont., and VSS. Report given to PHILANTHROPY OFFICER including meds, procedure info, and pt. Hx. [...] Cardiovascular Exercise tolerance: good (-) hypertension, past ND, dysrhythmias, CHF Neuro/Psych (+) headaches, psychiatric history [...] mg documented in this encounter Care Teams Company Controller Relationship Specialty [place] [address] [facility] [address] [place] [address] PCP - General Internal Medicine 04/08/21 documented as of this encounter
--- OUTSIDE RECORDS SUMMARY | 2024-05-29 21:42 | XMS_ITS | Encounter Summary ---
Author Organization [facility] Address [address] [place] [address] Care Team Providers Care Gas Tester Name Role Phone Unavailable Primary Care Provider Unavailabl e Reason for Visit * Reason Comments Establish Care mole on back Encounter Details Date Type Department Care Team (Late st Contact Info) Description 12/11/2020 9:15 AM CDT Office Visit [facility]LASTIC [facility]GERY [address] [address] [place] [address] Cole Stewart MD [address] [place] [address] Changing pigmented skin lesion (Primary [...] Stewart MD - 12/11/2020 9:14 AM CDT [facility] Plastic Surgery DATE:12/11/2020 NAME:Renata Lei :1980 CSN:[id number] HISTORY OF PRESENT ILLNESS: Renata Lei is [...] Gatherings with Friends and Family: ??? Attends [employer] Services: ??? Active Member of Clubs or [...]
--- OUTSIDE RECORDS SUMMARY | 2024-05-29 21:42 | XMS_ITS | Encounter Summary ---
Author Organization [facility] Address [address] [place]: Epic Prelude ADT [place] [address] Care Team Providers Care Inspector [employer] Name Role Phone Jai Guadarrama MD Primary Care Provider +1- [phone] Encounter Details Date Type Department Care Team [...] COVID-19? No / Unsure 07/25/2021 1:28 PM ASSEMBLER DECK AND HULL documented as of this encounter Plan of Treatment Not on file documented as of this encounter Visit Diagnoses Not on filedocumented in this encounter Care Teams Inspector [employer] Relationship Specialty [place] [address] [place] [address] PCP - General Internal Medicine 04/08/21 documented as of this encounter
--- OUTSIDE RECORDS SUMMARY | 2024-05-29 21:42 | XMS_ITS | Encounter Summary ---
Author Organization [facility] Address [address] [place] [address] Care Team Providers Care Basket Sorter Name Role Phone Jai Guadarrama MD Primary Care Provider +1- [phone] Encounter Details Date Type Department Care Team (Latest Contact Info) Description 06/10/2021 8:09 AM BEVEL POLISHER - 06/10/2021 11:59 PM BEVEL POLISHER Hospital Encounter Ekta Pre Procedure Viral Testing [address] [address] Discharge Disposition: Home or Self Care Social [...] Coronavirus / COVID-19? Yes 06/10/2021 8:09 AM BEVEL POLISHER documented as of this encounter Medications at Time of Discharge Medication Sig Dispensed Refills Start Date End Date escitalopram oxalate (LEXAPRO) 10 mg tablet Take 10 mg by mouth daily. 12/19/2019 topiramate (Topamax) 200 mg tablet Take 1 Tablet (200 mg) by mouth daily. 90 Tablet 3 04/08/2021 ALPRAZolam (XANAX) 0.25 mg tablet Take 0.25 mg by mouth 3 times daily as needed. 12/20/2019 06/24/2021 cetirizine (ZyrTEC) 10 mg tablet Take 10 mg by mouth daily. 06/24/2021 nortriptyline (PAMELOR) 25 mg capsule Take 25 mg by mouth. 04/28/2018 06/24/2021 documented as of this encounter Plan of Treatment Not on file documented as of this encounter Procedures Procedure Name Priority Date/Time Associated Diagnosis Comments 2019 NOVEL CORONAVIRUS (COVID-19) PCR DETECTION Routine 06/10/2021 8:10 AM BEVEL POLISHER Contact with and (suspected) exposure to covid-19 documented in this encounter Results * 2019 NOVEL CORONAVIRUS (COVID-19) PCR DETECTION (06/10/2021 8:10 AM BEVEL POLISHER) COVID-19 PCR NOT DETECTED Not Detected 06/10/19 3:13 PM BEVEL POLISHER [facility] PERFORMING LAB [facility] 06/10/2021 3:13 PM BEVEL POLISHER [facility] Upper Respiratory ENTIRE NASOPHARYNX / Unknown Collection / Unknown 06/10/2021 8:10 AM BEVEL POLISHER 06/10/2021 10:41 AM BEVEL POLISHER Narrative [facility] - 06/10/2021 3:13 PM BEVEL POLISHER This test has been authorized by the [...] 2019-Novel Coronavirus. Robert Pedersen MD MICROBIOLOGY - [facility] AL ORDERABLES [facility] CLIA# [id number] [address] [place] [address] documented in this encounter Visit Diagnoses Diagnosis Contact with and (suspected) exposure to covid-19 documented in this encounter Additional Health Concerns Infection Onset Date Last Indicated Resolved Time R/O COVID-19 06/09/2021 06/10/2021 06/10/2021 3:13 PM BEVEL POLISHER documented as of this encounter Care Teams Basket Sorter Relationship Specialty [place] [address] [facility] [address] [place] [address] PCP - General Internal Medicine 04/08/21 documented as of this encounter
--- OUTSIDE RECORDS SUMMARY | 2024-05-29 21:42 | XMS_ITS | Encounter Summary ---
Author Organization [facility] Address [address] [place]: Epic Prelude ADT [place] [address] Care Team Providers Care Home Maker Name Role Phone Unavailable Primary Care [...] COVID-19? No / Unsure 07/23/2020 1:33 PM COMMITTEE MEMBER documented as of this encounter Plan of Treatment Not on file documented as of this encounter Visit Diagnoses Not on filedocumented in this encounter
--- OUTSIDE RECORDS SUMMARY | 2024-05-29 21:42 | XMS_ITS | Encounter Summary ---
Author Organization [facility] Address [address] [place] [address] Care Team Providers Care Vertica Architect Name Role Phone Unavailable Primary Care Provider Unavailabl e Encounter Details Date Type Department Care Team (Latest Contact Info) Description 06/11/2020 3:56 PM SUPERVISOR CONCRETE BLOCK PLANT - 06/11/2020 11:59 PM SUPERVISOR CONCRETE BLOCK PLANT Hospital Encounter [facility] Laboratory Services [facility] [address] [place] [address] [place] [address] [facility] [address] [place] [address] Discharge Disposition: Home or Self [...] SURFACE AB, QUANT Routine 06/11/2020 11:00 AM SUPERVISOR CONCRETE BLOCK PLANT Routine general medical examination at a health care facility RUBEOLA IGG Routine 06/11/2020 11:00 AM SUPERVISOR CONCRETE BLOCK PLANT Routine general medical examination at a health care facility RUBELLA IGG Routine 06/11/2020 11:00 AM SUPERVISOR CONCRETE BLOCK PLANT Routine general medical examination at a health care facility VARICELLA ZOSTER IGG Routine 06/11/2020 11:00 AM SUPERVISOR CONCRETE BLOCK PLANT Routine general medical examination at a health care facility MUMPS IGG ANTIBODY Routine 06/11/2020 11 :00 AM SUPERVISOR CONCRETE BLOCK PLANT Routine general medical examination at a health care facility documented in this encounter Results * VARICELLA ZOSTER IGG (06/11/2020 11:00 AM SUPERVISOR CONCRETE BLOCK PLANT) VARICELLA ZOSTER IGG Immune - Positive Immune - Positive 06/12/2020 3:27 PM SUPERVISOR CONCRETE BLOCK PLANT [facility] VARICELLA IGG INDEX 292.3 06/12/2020 3:27 PM SUPERVISOR CONCRETE BLOCK PLANT [facility] Comment: Nonimmune - Negative ?<135.0 AI Equivocal ?135.0 - 164.9 AI ? Immune - Positive ? >164.9 AI Blood Collection / Unknown 06/11/2020 11:00 AM SUPERVISOR CONCRETE BLOCK PLANT 06/11/2020 4:19 PM SUPERVISOR CONCRETE BLOCK PLANT Narrative [facility] STLO - 06/12/2020 3:27 PM SUPERVISOR CONCRETE BLOCK PLANT A positive result suggests response to immunization or prior exposure to the virus. REFERENCE LAB ACC #: [id number] Robert Pedersen MD CHEMISTRY ORDERABLES [facility] CLIA # [id number] [address] [place] [address] [facility] [address] [place] [address] * RUBEOLA IGG (06/11/2020 11:00 AM SUPERVISOR CONCRETE BLOCK PLANT) RUBEOLA IGG Immune - Positive Immune - Positive 06/12/2020 3:27 PM SUPERVISOR CONCRETE BLOCK PLANT [facility] RUBEOLA IGG INDEX 60.8 06/12/2020 3:27 PM SUPERVISOR CONCRETE BLOCK PLANT [facility] Comment: Nonimmune - Negative ?<13.5 AI Equivocal ?13.5 - 16.4 AI ? Immune - Positive ? >16.4 AI Blood Collection / Unknown 06/11/2020 11:00 AM SUPERVISOR CONCRETE BLOCK PLANT 06/11/2020 4:19 PM SUPERVISOR CONCRETE BLOCK PLANT Narrative [facility] - 06/12/2020 3:27 PM SUPERVISOR CONCRETE BLOCK PLANT A positive result suggests response to immunization or prior exposure to the virus. REFERENCE LAB ACC #: [id number] Robert Pedersen MD CHEMISTRY ORDERABLES [facility] CLIA # [id number] [address] [place] [address] [facility] [address] [place] [address] * MUMPS IGG ANTIBODY (06/11/2020 11:00 AM SUPERVISOR CONCRETE BLOCK PLANT) MUMPS IGG AB Immune - Positive Immune - Positive 06/12/2020 3:30 PM SUPERVISOR CONCRETE BLOCK PLANT [facility] MUMPS IGG INDEX 56.5 06/12/2020 3:30 PM SUPERVISOR CONCRETE BLOCK PLANT [facility] Comment: Nonimmune - Negative ?<9.0 AI Equivocal ? 9.0 - 10.9 AI ? Immune - Positive ?>10.9 AI Blood Collection / Unknown 06/11/2020 11:00 AM SUPERVISOR CONCRETE BLOCK PLANT 06/11/2020 4:19 PM SUPERVISOR CONCRETE BLOCK PLANT Narrative [facility] STLO - 06/12/2020 3:30 PM SUPERVISOR CONCRETE BLOCK PLANT A positive result suggests response to immunization or prior exposure to the virus. REFERENCE LAB ACC #: [id number] Robert Pedersen MD CHEMISTRY ORDERABLES Performing Organization Address [facility] Co de Phone Number [facility] CLIA # [id number] [address] [place] [address] [address] * RUBELLA IGG (06/11/2020 11:00 AM SUPERVISOR CONCRETE BLOCK PLANT) Pathologist [facility] RUBELLA IGG IMMUNE Immune - Positive 06/11/2020 7:31 PM SUPERVISOR CONCRETE BLOCK PLANT [facility] Blood Collection / Unknown 06/11/2020 11:00 AM SUPERVISOR CONCRETE BLOCK PLANT 06/11/2020 4:19 PM SUPERVISOR CONCRETE BLOCK PLANT Narrative [facility] - 06/11/2020 7:31 PM SUPERVISOR CONCRETE BLOCK PLANT A positive result suggests response to immunization or prior exposure to the virus. Robert Pedersen MD CHEMISTRY ORDERABLES Performing Organization Address [facility]/ZIP Co de Phone Number [facility] CLIA# [id number] [address] [facility] [place] [address] * (ABNORMAL) HEPATITIS B SURFACE AB, QUANT (06/11/2020 11:00 AM SUPERVISOR CONCRETE BLOCK PLANT) Pathologist [facility] HEPATITIS B SURF AB,QN <4.0 mlU/mL 06/11/2020 5:54 PM SUPERVISOR CONCRETE BLOCK PLANT [facility] HEPATITIS B SURFACE AB INTERP Non-reacti ve(A) See Interp 06/11/2020 5:54 PM [facility] Blood Collection / Unknown 06/11/2020 11:00 AM SUPERVISOR CONCRETE BLOCK PLANT 06/11/2020 4:19 PM SUPERVISOR CONCRETE BLOCK PLANT Narrative [facility] - 06/11/2020 5:54 PM SUPERVISOR CONCRETE BLOCK PLANT Patient does not have immunity to Hepatitis B virus. ??This assay is used to determine immune status to Hepatitis B as greater than or equal to 10 mIU/mL as per CDC guidelines (MMWR:vol 55: RR-16, 2006). Robert Pedersen MD CHEMISTRY ORDERABLES [facility]# [id number] [address] [place] [address] documented in this encounter Visit Diagnoses Diagnosis Routine general medical examination at a health care facility- Primary documented in this encounter
--- OUTSIDE RECORDS SUMMARY | 2024-05-29 21:42 | XMS_ITS | Encounter Summary ---
Author Organization [facility] Address [address] [place]: Epic Prelude ADT [place] [address] Care Team Providers Care Block Making Machine Operator Name Role Phone Unavailable Primary Care [...]
--- OUTSIDE RECORDS SUMMARY | 2024-05-29 21:42 | XMS_ITS | Encounter Summary ---
Author Organization [facility] Address [address] [place]: Epic Prelude [place]T [place] [address] Care Team Providers Care Clock And Watch Hands Mounter Name Role Phone Jai Guadarrama MD Primary Care Provider +1- [phone] Encounter Details Date Type Department Care Team [...] COVID-19? 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
--- OUTSIDE RECORDS SUMMARY | 2024-05-29 21:42 | XMS_ITS | Encounter Summary ---
Author Organization [facility] Address [address] [place] [address] Care Team Providers Care Distribution System Operator Name Role Phone Unavailable Primary Care Provider Unavailabl e Reason for Visit * Reason Comments Procedure Encounter Details Date Type Department Care Team (Latest Contact Info) Description 01/01/2021 10:30 AM CDT Procedure visit [facility] PLASTIC SURGERY [address] [place] [address] Cole Stewart MD [address] [facility] [address] [place] [address] Changing pigmented skin lesion (Primary [...] CASE REPORT Surgical Pathology Report ? Case: [id number] ? Authorizing Provider: ??Cole Stewart MD ?Collected: ? 01/01/2021 01:12 PM ? Ordering Location: ? [facility] Plastic ? Received: ?01/02/2021 07:38 AM ? Surgery - [facility] [place] [address] ? [address] ? Pathologist: ? Jerrell Crawford MD ? Specimens: ?? A) - Back, upper ? B) - Arm, right ? 01/04/2021 8:34 AM [facility] FINAL DIAGNOSIS Skin, upper back, punch biopsy: - Benign vascular lesion (see comment). Skin, right arm, punch biopsy: - Dermatofibroma. 01/04/2021 8:34 AM [facility] NOSIS COMMENT COMMENT: The upper back punch biopsy shows a benign vascular lesion with dissecting vascular channels in the dermis. This may represent a venous malformation or lymphangioma. 01/04/2021 8:34 AM [facility] GROSS DESCRIPTION The specimens are received in [...] bisected and entirely submitted in cassette B1. [facility] 01/04/2021 8:34 AM [facility] MICROSCOPIC DESCRIPTION The slides are labeled [id number] and Renata Lei. The upper back punch biopsy shows dissecting thin walled angulated vascular spaces within the dermis. A D2-40 stain is obtained to evaluate for lymphatic expression; however, the lesion is largely cut through on this deeper level and is non-contributory in determining the vascular type. The right arm punch biopsy shows a grtomahod-iu-vqgpjttl m proliferation of spindled fibrohistiocytic cells amongst thickened collagen bundles in the dermis. 01/04/2021 8:34 AM [facility] OPERATIVE PROCEDURE punch biopsy of upper back and right arm lesions 01/04/2021 8:34 AM [facility] CLINICAL INFORMATION L81.9 - Changing pigmented skin lesion [ICD-10-CM] 01/04/2021 8:34 AM [facility] COMMENT Special stain and/or immunohistochemical results are interpreted with controls that demonstrate appropriate staining reactions. Note on use of immunocytochemistry reagents: This test was developed and its performance characteristics determined by [facility], Department of Laboratory Medicine. It has [...] part or completely in the following laboratories: [facility], CLIA #[id number] [address] [place] [address] [facility], [place] #[id number] [address] [place] [address] [facility]/[place], CLIA #[id number] [address] [place] [address] 01/04/2021 8:34 AM [facility] Tissue (Back, upper) Collection / Unknown 01/01/2021 1:12 PM CDT 01/02/2021 7:38 AM CDT Tissue specimen (specimen) (Arm, right) Collection / Unknown 01/01/2021 1:12 PM CDT 01/02/2021 7:38 AM CDT Cole Stewart MD PATHOLOGY/CYTOLOGY O RDERABLES Performing Organization Address City/State/[facility] Co de Phone Number [facility]# [id number] [address] [place] [address] documented in this encounter Visit Diagnoses Diagnosis Changing pigmented skin lesion- Primary documented in this encounter
--- OUTSIDE RECORDS SUMMARY | 2024-05-29 21:42 | XMS_ITS | Encounter Summary ---
Author Organization [facility] Address [address] Attn: [place] [address] Care Team Providers Care Client Sales And Service Officer Name Role Phone Unavailable Primary Care Provider Unavailabl e Encounter Details Date Type Department Care Team (Late st Contact Info) Description 06/11/2020 Orders Only Initial Department [address] LOWEN: [place] [address] Provider, Historical Social History Tobacco Use Types [...] Comments T-SPOT TB Routine 06/11/2020 11:00 AM APPRAISAL COORDINATOR documented in this encounter Results * T-SPOT TB (06/11/2020 11:00 AM APPRAISAL COORDINATOR) [facility] T-SPOT TB Negative [facility] [place] [facility] Comment: Normal Value: Negative A negative test [...] [facility] POSITIVE CONTROL SPOT COUNT Passed [facility] Comment: FASTING: NO Test Performed at: [facility], [facility], [address] [place], [place] ??[address] Nacho Bruno MD,PhD 06/11/2020 11:0 0 AM APPRAISAL COORDINATOR Robert Pedersen MD MICROBIOLOGY - GENER AL ORDERABLES [facility] [address] [place] [address] documented in this encounter Visit Diagnoses Not on filedocumented in this encounter
--- OUTSIDE RECORDS SUMMARY | 2024-05-29 21:42 | XMS_ITS | Encounter Summary ---
Author Organization [facility] Address [address] [place] [address] Care Team Providers Care Electronic Equipment Maint Tech Name Role Phone Jai Guadarrama MD Primary Care Provider +- [phone] Encounter Details Date Type Department Care Team (Late st Contact Info) Description 09/11/2021 Orders Only [facility] - [address] [place] [address] Jerrell Byrd, DO [address] [place] [address] Social History Tobacco Use Types Packs/Day [...] on filedocumented in this encounter Care Teams Electronic Equipment Maint Tech Relationship Specialty Start [place] [address] [place] [address] PCP - General Internal Medicine 04/08/21 documented as of this encounter
--- OUTSIDE RECORDS SUMMARY | 2024-05-29 21:42 | XMS_ITS | Encounter Summary ---
Author Organization [facility] Address [address] [place] [address] Care Team Providers Care Airway Traffic Controller Name Role Phone Jai Guadarrama MD Primary Care Provider [phone]- [phone] Reason for Visit * Reason Comments Procedure Encounter Details Date Type Department Care Team (Latest Contact Info) Description 08/23/2021 10:15 AM CDT Procedure visit [facility] [id number] [id number] Cole Stewart MD [address] [place] [address] Skin lesion of left lower [...] Stewart MD - 08/23/2021 10:48 AM CDT [place], [place] [address] Operative Report CSN: [id number] DATE OF SERVICE: 08/23/2021 SURGEON Cole Stewart [...] CASE REPORT Surgical Pathology Report ? Case: [id number] ? Authorizing Provider: ??Cole Stewart MD ?Collected: ? 08/23/2021 11:24 AM ? Ordering Location: ? [facility] [address] ?Received: ?08/23/2021 01:55 PM ? [address] ? Pathologist: ? Jerrell Crawford MD ? Specimen: ?Calf, left, left calf lesion ? 2 1:05 PM CDT [facility] FINAL DIAGNOSIS Skin, left calf, excision: - Dermatofibroma. - Margins negative. 2 1:05 PM CDT [facility] S DESCRIPTION Received in one container labeled Renata Lei and left calf is a 1.7 x 0.9 cm unoriented ellipse of [place] skin excised to a depth of 0.5 cm. A distinct lesion is not seen on the skin surface. The margin is inked blue. The tissue is serially sectioned and entirely submitted as follows: A1-tips, A2-central sections. [facility] 2 1:05 PM [facility] MICROSCOPIC DESCRIPTION The slides are labeled [id number] and Renata Lei. The left calf excision shows a storiform proliferation of fibrohistiocytic cells amongst thickened collagen bundles in the dermis. There is overlying epidermal induction and peripheral collagen trapping. The lesion is not present at the margins of the specimen. 2 1:05 PM [facility] OPERATIVE PROCEDURE excision of left calf lesion 2 1:05 PM [facility] CLINICAL INFORMATION L98.9 - Skin lesion of left lower extremity [ICD-10-CM] 2 1:05 PM [facility] COMMENT Special stain, immunohistochemical, and/or in situ hybridization results are interpreted with controls that demonstrate appropriate staining reactions. Note on use of immunohistochemistry reagents and in situ hybridization probes: These tests were developed and their performance characteristics determined by [facility], Department of Laboratory Medicine. It has not [...] or completely in the following laboratories: [facility], CLIA #[id number] [address] [place] [address] [facility], [place] #[id number] [address] [place] [address] [facility]/[place], [place] #[id number] [address] [place] [address] This report was created with the [employer] voice-activated dictation system. Inherent to this system is the possibility of syntax, grammar, punctuation and other errors that could impact the interpretation of the report. If there are interpretative questions about aspects of this report, please contact the performing pathologist. 1:05 PM CDT [facility] Tissue (Calf, left) Collection / Unknown 08/23/2021 11:24 AM CDT 08/23/2021 1:55 PM CDT Cole Stewart MD PATHOLOGY/CYTOLOGY [facility] [id number] [address] [place] [address] documented in this encounter Visit Diagnoses Diagnosis Skin lesion of left lower extremity- Primary documented in this encounter Care Teams Airway Traffic Controller Relationship Specialty [place] [address] [place] [phone] PCP - General Internal Medicine 04/08/21 documented as of this encounter
--- OUTSIDE RECORDS SUMMARY | 2024-05-29 21:42 | XMS_ITS | Encounter Summary ---
Author Organization [facility] Address [address] [place] [address] Care Team Providers Care Printing Roller Handler Name Role Phone Unavailable Primary Care Provider Unavailabl e Encounter Details Date Type Department Care Team (Late st Contact Info) Description 08/16/2020 4:45 PM CDT Immunization [facility] [address] [phone] High priority for 2019 novel coronavirus vaccination [...]
== END 2024-05-23 14:15 | disposition home or self-care (01) ==
PROVIDERS: Emergency Provider Student in an Organized Health Care Education/Training Program
DX: S93.401A Sprain of unspecified ligament of right ankle, initial encounter (principal); Z90.49 Acquired absence of other specified parts of digestive tract; M19.90 Unspecified osteoarthritis, unspecified site; X58.XXXA Exposure to other specified factors, initial encounter
CPT/HCPCS: 73610; 93971; 99284; A9270